=== PATIENT | male | born 1945 | race Caucasian/White ===

== ENCOUNTER → 2021-02-11 | Outpatient (CLI) | payer MEDICARE ==
--- NOTE | 2021-02-11 15:07 | MR ---
EXAMINATION TYPE: MR lumbar spine wo con DATE OF EXAM: 02/11/2021 COMPARISON: None HISTORY: Radiculopathy lumbar, spondylosis, lower back pain TECHNIQUE: Multiplanar, multisequence images of the lumbar spine were acquired. L1-L2: Minimal posterior disc bulge causes slight anterior mass effect on the thecal sac. No signific ant spinal stenosis or foraminal encroachment. L2-L3: Normal disc appearance without desiccation. No herniation, protrusion or disc bulging. No ca nal stenosis is present. Foramina are patent bilaterally. There is facet arthropathy change present causing some posterior lateral mass effect on the thecal sac. Pedicles appear short. L3-L4: Posterior disc herniation causes anterior mass effect on the thecal sac, facet arthropathy wit h hypertrophy of ligamentum flavum results in a trefoil appearance of the thecal sac, facet arthropat hy encroaches somewhat on the lateral recesses, circumferential extension endplate disc complex encro aches on the neural foramina. L4-L5: Posterior extension of broad-based disc bulge, endplate disc complex results in anterior mass effect on the thecal sac, mild spinal stenosis, there is facet arthropathy with hypertrophy ligamentu m flavum which causes some posterior lateral mass effect on the thecal sac greater on the right, poss ibly some encroachment on the lateral recess, circumferential extension endplate disc complex causing foraminal encroachment greater on the right than on the left. L5-S1: Normal disc appearance without desiccation. No herniation, protrusion or disc bulging. No ca nal stenosis is present. Foramina are patent bilaterally. There is some facet arthropathy change. Lumbar segments are intact. No paraspinal masses are identified. Conus medullaris has a normal appe arance. There is multilevel spondylosis with endplate discogenic marrow signal change, loss of disc h eight and signal is present intervertebral levels especially L3-4, L4-5, L5-S1. IMPRESSION: Degenerative disc disease, facet arthropathy, foraminal encroachment.
== END | disposition home or self-care (01) ==
LOC: RADMRIMAIN 08:21
PROVIDERS: ATTEND Physical Medicine & Rehabilitation
DX: M51.16 Intervertebral disc disorders with radiculopathy, lumbar region (principal); M47.26 Other spondylosis with radiculopathy, lumbar region; M99.73 Connective tissue and disc stenosis of intervertebral foramina of lumbar region
CPT/HCPCS: 72148

== ENCOUNTER → 2021-05-29 | Outpatient (CLI) | payer OTHER ==
--- NOTE | 2021-05-29 11:35 | FL ---
ESOPHOGRAM. HISTORY: Dysphagia Esophagram was performed per the air contrast technique. The patient swallowed barium and effervesce nt crystals without difficulty or delay. Noted and distal portions of the esophagus demonstrate a cork screw appearance compatible with diffus e esophageal spasm. There is no evidence for filling defect, mass or diverticulum. No hiatal hernia seen. Subsequently single contrast cervical esophagram was performed which fails demonstrate evidence for a spiration penetration or mass. IMPRESSION: Noted and distal portions of the esophagus demonstrate a cork screw appearance compatible with diffus e esophageal spasm.
== END | disposition home or self-care (01) ==
LOC: RADUSWWP 09:43
PROVIDERS: ATTEND Family Medicine
DX: R13.10 Dysphagia, unspecified (principal)
CPT/HCPCS: 74220

== ENCOUNTER → 2023-11-24 | Day surgery (SDC) | payer MEDICARE, OTHER ==
[~2023-11-24] MED LIST: LACTATED RINGERS 1,000 ML IV SCH; LIDOCAINE 1% (10MG/ML) FOR IV START INTRADERMA PRN; PROPOFOL 10 MG/ML 20 ML VIAL IV ONE
[2023-11-24] MEDS: SODIUM CHLORIDE 0.9% 500 ML 500 ML IV ONE (08:53)
[2023-11-24 08:57] LABS: Glucose,Whole Blood 76 mg/dL (70-110)
[2023-11-24 09:14] VITALS: TEMP 98.4
--- NOTE | 2023-11-24 09:27 | P.PCN ---
Date of Procedure: 11/24/23 Procedure(s) Performed: BRIEF HISTORY: Patient is a 78-year-old pleasant white female scheduled for an elective colonoscopy as a part of evaluation of Hemoccult-positive stool. PROCEDURE PERFORMED: Colonoscopy. PREOPERATIVE DIAGNOSIS:. Hemoccult-positive stool IV sedation per Anesthesia. PROCEDURE: After informed consent was obtained, the patient, was brought into the endoscopy unit. IV sedation was administered by Anesthesia under continuous monitoring. Digital rectal examination was normal. Initially the Olympus CF-160 flexible video colonoscope was then insertethe rectum, gradually advanced into the hepatic flexure and despite multiple attempts I was not able to advance the scope into the cecum because of extreme redundancy of the colon. Mucosa of the hepatic flexure transverse colon, descending colon, sigmoid colon, and rectum appeared normal. Retroflexion was performed in the rectum and no lesions were seen. The patient tolerated the procedure well. IMPRESSION: Normal-appearing colon from rectum to hepatic flexure and further advancement into the right colon was not possible because of redundant colon. RECOMMENDATIONS: Findings of this examination were discussed with the patient as well as his family. He would be scheduled for barium enema to evaluate the right colon.
[2023-11-24 09:47] LABS: Glucose,Whole Blood 70 mg/dL (70-110)
[2023-11-24] MEDS: DEXTROSE 50% SYRINGE 50 ML IVP ONE (10:10)
[2023-11-24 10:30] VITALS: RESP 14
[2023-11-24 10:38] LABS: Glucose,Whole Blood 111 mg/dL (70-110)
[2023-11-24 11:06] VITALS: BP 150/84; PULSE 57
--- NOTE | 2023-11-24 11:27 | XR ---
EXAMINATION TYPE: XR abdomen 1V DATE OF EXAM: 11/24/2023 COMPARISON: NONE HISTORY: [employer] for barium enema TECHNIQUE: One view abdominal series FINDINGS: Extensive retained air throughout the colon and portions of the small bowel. This likely is related t o recent colonoscopy. Arthropathy of the hips and degenerative change of the spine. IMPRESSION: 1. Extensive air throughout both large and small bowel loops likely related to recent colonoscopy.
== END ==
LOC: ORWHC2ENDO 07:53
PROVIDERS: ATTEND Internal Medicine Gastroenterology
DX: R19.5 Other fecal abnormalities (principal); E78.5 Hyperlipidemia, unspecified; I48.91 Unspecified atrial fibrillation; G47.33 Obstructive sleep apnea (adult) (pediatric); E11.9 Type 2 diabetes mellitus without complications; D64.9 Anemia, unspecified; Z79.01 Long term (current) use of anticoagulants; Z79.899 Other long term (current) drug therapy
CPT/HCPCS: 74018; 45378; J2704

== ENCOUNTER 2024-02-15 13:44 | Inpatient (IN) | payer OTHER, MEDICARE ==
--- NOTE | 2024-02-15 14:01 | ED ---
Recheck HPI - General Stated Complaint: Fever, elevated pulse Time Seen by Provider: 02/15/24 13:46 Source: RN notes reviewed, old records reviewed Limitations: no limitations - History of Present Illness Initial Comments: This is a 78-year-old male to the ER for evaluation of severely elevated heart rate patient presents from dialysis with history of atrial fibrillation and heart rate allegedly in the 150s. Patient was sent to the ER from dialysis for evaluation regards to heart rate MD Complaint: other (Significant. Elevated heart rate) -: hour(s) Returns Today for: rabies shot Symptoms Since Prior Visit: no new symptoms Context: planned re-check Associated Symptoms: none Treatments Prior to Arrival: other - Related Data Home Medications Medication Instructions Recorded Confirmed Alogliptin Benzoate [Alogliptin] 6.25 mg PO HS 11/20/23 02/15/24 Insulin Glargine,Hum.rec.anlog 45 units SQ HS 11/20/23 02/15/24 [Lantus Solostar Pen] Multivitamins, Thera [Multivitamin 1 tab PO DAILY 11/20/23 02/15/24 (formulary)] [place]-3/Dha/Epa/Fish Oil [Fish Oil 1,000 mg PO DAILY 11/20/23 02/15/24 1,000 mg Softgel] Tamsulosin HCl [Flomax] 0.4 mg PO HS 11/20/23 02/15/24 Warfarin [Coumadin] 2.5 mg PO DIRECTED 11/20/23 02/15/24 diphenhydrAMINE HCL [Benadryl] 25 mg PO HS 11/20/23 02/15/24 Lovastatin [Mevacor] 10 mg PO HS 02/15/24 02/15/24 Allergies Allergy/AdvReac Type Severity Reaction Status Date / Time No Known Allergies Allergy Verified 02/15/24 16:59 Review of Systems ROS Statement: Those systems with pertinent positive or pertinent negative responses have been documented in the HPI. ROS Other: All systems not noted in ROS Statement are negative. Past Medical History Past Medical History: Atrial Fibrillation, Atrial Flutter, Diabetes Mellitus, Dialysis, Hyperlipidemia, Renal Disease, Sleep Apnea/CPAP/BIPAP Additional Past Medical History / Comment(s): MWF DIALYSIS , uses cpap ,dialysis graft in lft arm History of Any Multi-Drug Resistant Organisms: None Reported Past Surgical History: Cardiac Valve Replacement, Tonsillectomy Additional Past Surgical History / Comment(s): graft for dialysis Past Anesthesia/Blood Transfusion Reactions: No Reported Reaction Smoking Status: Former smoker - Past Family History Father Family Medical History: No Reported History Brother(s) Family Medical History: Diabetes Mellitus, Sleep Apnea/CPAP/BIPAP Additional Family Medical History / Comment(s): Parkinson's Dis. General Exam General appearance: alert, in no apparent distress, anxious Head exam: Present: atraumatic, normocephalic, normal inspection Eye exam: Present: normal appearance, PERRL, EOMI. Absent: scleral icterus, conjunctival injection, periorbital swelling ENT exam: Present: normal exam, mucous membranes moist Neck exam: Present: normal inspection. Absent: tenderness, meningismus, lymphad enopathy Respiratory exam: Present: normal lung sounds bilaterally. Absent: respiratory distress, wheezes, rales, rhonchi, stridor Cardiovascular Exam: Present: tachycardia, irregular rhythm, normal heart sounds. Absent: systolic murmur, diastolic murmur, rubs, gallop, clicks GI/Abdominal exam: Present: soft, normal bowel sounds. Absent: distended, tenderness, guarding, rebound, rigid Extremities exam: Present: normal inspection, full ROM, normal capillary refill. Absent: tenderness, pedal edema, joint swelling, calf tenderness Back exam: Present: normal inspection Neurological exam: Present: alert, oriented X3, CN II-XII intact Psychiatric exam: Present: normal affect, normal mood Skin exam: Present: warm, dry, intact, normal color. Absent: rash Course Vital Signs 02/15/24 02/15/24 02/15/24 13:48 17:29 21:34 Temperature 104.1 F H 101.5 F H 98.6 F Pulse Rate 140 H 147 H 93 Pulse Rate [ Critical Care Technician ] Respiratory 16 26 H 16 Rate Blood Pressure 196/98 97/48 108/53 Blood Pressure [Right Arm] O2 Sat by Pulse 97 84 L Oximetry Fraction of Inspired Oxygen (FIO2) 02/15/24 02/15/24 02/15/24 22:00 22:29 22:40 Temperature Pulse Rate 144 H Pulse Rate [ Critical Care Technician ] Respiratory 18 Rate Blood Pressure 191/79 Blood Pressure [Right Arm] O2 Sat by Pulse 70 L 99 Oximetry Fraction of 60 Inspired Oxygen (FIO2) 02/15/24 02/15/24 02/15/24 23:06 23:14 23:25 Temperature 99.4 F Pulse Rate 158 H Pulse Rate [ Critical Care Technician ] Respiratory 33 H Rate Blood Pressure 91/55 85/60 Blood Pressure [Right Arm] O2 Sat by Pulse 100 Oximetry Fraction of 50 Inspired Oxygen (FIO2) 02/16/24 02/16/24 02/16/24 00:12 02:00 03:39 Temperature Pulse Rate 105 H Pulse Rate [ Critical Care Technician ] Respiratory 24 Rate Blood Pressure 97/54 Blood Pressure [Right Arm] O2 Sat by Pulse 100 Oximetry Fraction of 40 40 Inspired Oxygen (FIO2) 02/16/24 02/16/24 02/16/24 04:21 08:00 08:19 Temperature 97.4 F L Pulse Rate 99 Pulse Rate [ 94 Critical Care Technician ] Respiratory 20 16 Rate Blood Pressure 101/54 Blood Pressure 108/65 [Right Arm] O2 Sat by Pulse 100 99 100 Oximetry Fraction of 40 Inspired Oxygen (FIO2) 02/16/24 08:23 Temperature Pulse Rate Pulse Rate [ Critical Care Technician ] Respiratory Rate Blood Pressure Blood Pressure [Right Arm] O2 Sat by Pulse Oximetry Fraction of 30 Inspired Oxygen (FIO2) - Reevaluation(s) Reevaluation #1: 02/15/24 14:13 Medical records reviewed Reevaluation #2: 02/15/24 16:45 Patient symptoms heart rate and fever improved Reevaluation #3: 02/15/24 16:45 Patient informed of results and questions answered Reevaluation #4: Was pt. sent in by a medical professional or institution (, PA, NECKTIE CENTRALIZING MACHINE OPERATOR, urgent care, hospital, or [facility]...) When possible be specific @ -no Did you speak to anyone other than the patient for history (EMS, parent, family, police, friend...)? What history was obtained from this source @ -no Did you review nursing and triage notes (agree or disagree)? Why? @ -agree Are old charts reviewed (outside hosp., previous admission, EMS record, old EKG, old radiological studies, urgent care reports/EKG's, [facility] records)? Report findings @ -yes Differential Diagnosis (chest pain, altered mental status, abdominal pain women, abdominal pain men, vaginal bleeding, weakness, fever, dyspnea, syncope, headache, dizziness, GI bleed, back pain, seizure, CVA, palpatations, mental health, musculoskeletal)? @ -prior EKG interpreted by me (3pts min.). @ -yes X-rays interpreted by me (1pt min.). @ -yes negative for acute disease CT interpreted by me (1pt min.). @ -no U/S interpreted by me (1pt. min.). @ -no What testing was considered but not performed or refused? (CT, X-rays, U/S, labs)? Why? @ -none What meds were considered but not given or refused? Why? @ -none Did you discuss the management of the patient with other professionals (professionals i.e. Dr., PA, NECKTIE CENTRALIZING MACHINE OPERATOR, lab, RT, psych nurse, mental health social worker, quarry boss, teacher, chief data officer, piano case and bench assembler)? Give summary @ -no Was smoking cessation discussed for >3mins.? @ -no Was critical care preformed (if so, how long)? @ -yes31 Were there social determinants of health that impacted care today? How? (Homelessness, low income, unemployed, alcoholism, drug addiction, transportation, low edu. Level, literacy, decrease access to med. care, nursing home, rehab)? @ -none Was there de-escalation of care discussed even if they declined (Discuss DNR or withdrawal of care, Hospice)? DNR status @ -no What co-morbidities impacted this encounter? (DM, HTN, Smoking, COPD, CAD, Cancer, CVA, ARF, Chemo, Hep., AIDS, mental health diagnosis, sleep apnea, morbid obesity)? @ -none Was patient admitted / discharged? Hospital course, mention meds given and route, prescriptions, significant lab abnormalities, going to OR and other pertinent info. @ - 78 male to ER for evaluation of elevated heart rate severely elevated heart with fever. Patient will be admitted for rule out sepsis with sepsis no current source found Admitted Undiagnosed new problem with uncertain prognosis? @ -no Drug Therapy requiring intensive monitoring for toxicity (Heparin, Nitro, Insulin, Cardizem)? @ -no Were any procedures done? @ -no Diagnosis/symptom? @ -78 male to ER for evaluation of elevated heart rate severely elevated heart with fever. Patient will be admitted for rule out sepsis with sepsis no current source found Acute, or Chronic, or Acute on Chronic? @ -Acute Uncomplicated (without systemic symptoms) or Complicated (systemic symptoms)? @ -Complicated Side effects of treatment? @ -no Exacerbation, Progression, or Severe Exacerbation? @ -exacerbation Poses a threat to life or bodily function? How? (Chest pain, [place], [place], pneumonia, PE, COPD, DKA, ARF, appy, cholecystitis, CVA, Diverticulitis, Homicidal, Suicidal, threat to staff... and all critical care pts) @ -yes Reevaluation #5: Differential Palpitations Ventricular arrhythmias, atrial arrhythmias, myocardial infarction, anemia, thyrotoxicosis, electrolyte imbalance, hypokalemia, pulmonary embolism, pulmonary disease, drugs, alcohol, anxiety, stress.... This is not meant to be an all-inclusive list. - Consultations Consultation #1: Spoke with admitting physicians who agreed to admit this patient Medical Decision Making - Medical Decision Making 78 male to ER for evaluation of elevated heart rate severely elevated heart with fever. Patient will be admitted for rule out sepsis with sepsis no current source found - Lab Data Result diagrams: 02/23/24 10:01 02/23/24 10:01 Lab Results 02/15/24 02/15/24 02/15/24 Range/Units 14:04 14:04 14:04 WBC 19.4 H (3.8-10.6) k/uL RBC 3.59 L (4.30-5.90) m/uL Hgb 11.3 L (13.0-17.5) gm/dL Hct 34.0 L (39.0-53.0) % MCV 94.7 (80.0-100.0) fL MCH 31.6 (25.0-35.0) pg MCHC 33.3 (31.0-37.0) g/dL RDW 15.3 (11.5-15.5) % Plt Count 131 L (150-450) k/uL MPV 8.7 Neutrophils % 94 % Lymphocytes % 2 % Monocytes % 3 % Eosinophils % 0 % Basophils % 0 % Neutrophils # 18.2 H (1.3-7.7) k/uL Lymphocytes # 0.3 L (1.0-4.8) k/uL Monocytes # 0.7 (0-1.0) k/uL Eosinophils # 0.1 (0-0.7) k/uL Basophils # 0.1 (0-0.2) k/uL PT 21.7 H (10.0-12.5) sec INR 2.2 H (<1.2) APTT 41.5 H (22.0-30.0) sec Sodium 137 (137-145) mmol/L Potassium 4.0 (3.5-5.1) mmol/L Chloride 97 L (98-107) mmol/L Carbon Dioxide 29 (22-30) mmol/L Anion Gap 11 mmol/L BUN 76 H (9-20) mg/dL Creatinine 3.74 H (0.66-1.25) mg/dL Est GFR (CKD-EPI)AfAm 17 (>60 ml/min/1.73 sqM) Est GFR (CKD-EPI)NonAf 15 (>60 ml/min/1.73 sqM) Glucose 197 H (74-99) mg/dL Lactic Ac Sepsis Rflx Plasma Lactic Acid Chaz (0.7-2.0) mmol/L Calcium 8.8 (8.4-10.2) mg/dL Phosphorus 2.4 L (2.5-4.5) mg/dL Magnesium 2.0 (1.6-2.3) mg/dL Total Bilirubin 0.6 (0.2-1.3) mg/dL AST 38 (17-59) U/L ALT 28 (4-49) U/L Alkaline Phosphatase 67 (38-126) U/L Troponin I (0.000-0.034) ng/mL Total Protein 7.2 (6.3-8.2) g/dL Albumin 4.3 (3.5-5.0) g/dL Influenza Type A (PCR) (Not Detectd) Influenza Type B (PCR) (Not Detectd) RSV (PCR) (Not Detectd) SARS-CoV-2 (PCR) (Not Detectd) 02/15/24 02/15/24 02/15/24 Range/Units 14:04 14:04 15:37 WBC (3.8-10.6) k/uL RBC (4.30-5.90) m/uL Hgb (13.0-17.5) gm/dL Hct (39.0-53.0) % MCV (80.0-100.0) fL MCH (25.0-35.0) pg MCHC (31.0-37.0) g/dL RDW (11.5-15.5) % Plt Count (150-450) k/uL MPV Neutrophils % % Lymphocytes % % Monocytes % % Eosinophils % % Basophils % % Neutrophils # (1.3-7.7) k/uL Lymphocytes # (1.0-4.8) k/uL Monocytes # (0-1.0) k/uL Eosinophils # (0-0.7) k/uL Basophils # (0-0.2) k/uL PT (10.0-12.5) sec INR (<1.2) APTT (22.0-30.0) sec Sodium (137-145) mmol/L Potassium (3.5-5.1) mmol/L Chloride (98-107) mmol/L Carbon Dioxide (22-30) mmol/L Anion Gap mmol/L BUN (9-20) mg/dL Creatinine (0.66-1.25) mg/dL Est GFR (CKD-EPI)AfAm (>60 ml/min/1.73 sqM) Est GFR (CKD-EPI)NonAf (>60 ml/min/1.73 sqM) Glucose (74-99) mg/dL Lactic Ac Sepsis Rflx Y Plasma Lactic Acid Chaz 2.6 H* (0.7-2.0) mmol/L Calcium (8.4-10.2) mg/dL Phosphorus (2.5-4.5) mg/dL Magnesium (1.6-2.3) mg/dL Total Bilirubin (0.2-1.3) mg/dL AST (17-59) U/L ALT (4-49) U/L Alkaline Phosphatase (38-126) U/L Troponin I 0.171 H* (0.000-0.034) ng/mL Total Protein (6.3-8.2) g/dL Albumin (3.5-5.0) g/dL Influenza Type A (PCR) (Not Detectd) Influenza Type B (PCR) (Not Detectd) RSV (PCR) (Not Detectd) SARS-CoV-2 (PCR) (Not Detectd) 02/15/24 Range/Units 16:28 WBC (3.8-10.6) k/uL RBC (4.30-5.90) m/uL Hgb (13.0-17.5) gm/dL Hct (39.0-53.0) % MCV (80.0-100.0) fL MCH (25.0-35.0) pg MCHC (31.0-37.0) g/dL RDW (11.5-15.5) % Plt Count (150-450) k/uL MPV Neutrophils % % Lymphocytes % % Monocytes % % Eosinophils % % Basophils % % Neutrophils # (1.3-7.7) k/uL Lymphocytes # (1.0-4.8) k/uL Monocytes # (0-1.0) k/uL Eosinophils # (0-0.7) k/uL Basophils # (0-0.2) k/uL PT (10.0-12.5) sec INR (<1.2) APTT (22.0-30.0) sec Sodium (137-145) mmol/L Potassium (3.5-5.1) mmol/L Chloride (98-107) mmol/L Carbon Dioxide (22-30) mmol/L Anion Gap mmol/L BUN (9-20) mg/dL Creatinine (0.66-1.25) mg/dL Est GFR (CKD-EPI)AfAm (>60 ml/min/1.73 sqM) Est GFR (CKD-EPI)NonAf (>60 ml/min/1.73 sqM) Glucose (74-99) mg/dL Lactic Ac Sepsis Rflx Plasma Lactic Acid Chaz (0.7-2.0) mmol/L Calcium (8.4-10.2) mg/dL Phosphorus (2.5-4.5) mg/dL Magnesium (1.6-2.3) mg/dL Total Bilirubin (0.2-1.3) mg/dL AST (17-59) U/L ALT (4-49) U/L Alkaline Phosphatase (38-126) U/L Troponin I (0.000-0.034) ng/mL Total Protein (6.3-8.2) g/dL Albumin (3.5-5.0) g/dL Influenza Type A (PCR) Not Detected (Not Detectd) Influenza Type B (PCR) Not Detected (Not Detectd) RSV (PCR) Not Detected (Not Detectd) SARS-CoV-2 (PCR) Not Detected (Not Detectd) - EKG Data -: EKG Interpreted by Me (EKG is A-fib flutter 138 QRS 86 QTc 365) - Radiology Data Radiology results: report reviewed (Chest x-ray is negative for acute disease), image reviewed Critical Care Time Critical Care Time: Yes Total Critical Care Time: 31 Disposition Clinical Impression: Fever, Atrial fibrillation with rapid ventricular response, Weakness, Sepsis, NSTEMI (non-ST elevated myocardial infarction), End-stage renal disease on hemodialysis, Anemia, Leukocytosis Disposition: ADMITTED IP TO THIS HOSP Condition: Serious Is patient prescribed a controlled substance at d/c from ED?: No Time of Disposition: 16:40
[2024-02-15] MEDS: SODIUM CHLORIDE 0.9% 1,000 ML IV STA (15:04)
[2024-02-15] MEDS: DILTIAZEM DRIP BOLUS FROM BAG 1 MG SOLN IV ONE (15:05)
[2024-02-15] MEDS: DILTIAZEM 125 MG in SODIUM CHLORIDE 0.9% 100 ML IV SCH (15:05)
[2024-02-15 15:21] LABS: Basophils # (A) 0.1 k/uL (0-0.2); Basophils % (A) 0 %; Eosinophils # (A) 0.1 k/uL (0-0.7); Eosinophils % (A) 0 %; HGB 11.3 gm/dL (13.0-17.5); Lymphocytes # (A) 0.3 k/uL (1.0-4.8); Lymphocytes % (A) 2 %; MCH 31.6 pg (25.0-35.0); MCHC 33.3 g/dL (31.0-37.0); MCV 94.7 fL (80.0-100.0); Mean Platelet Volume 8.7; Monocytes # (A) 0.7 k/uL (0-1.0); Monocytes % (A) 3 %; Neutrophils # (A) 18.2 k/uL (1.3-7.7); Neutrophils % (A) 94 %; Platelet Count 131 k/uL (150-450); RBC 3.59 m/uL (4.30-5.90); RDW 15.3 % (11.5-15.5); WBC 19.4 k/uL (3.8-10.6)
[2024-02-15 15:29] LABS: INR 2.2 (<1.2); Partial Thromboplastin Time 41.5 sec (22.0-30.0); Prothrombin Time 21.7 sec (10.0-12.5)
[2024-02-15 15:34] LABS: ALT 28 U/L (4-49); AST 38 U/L (17-59); African American GFR (CKD) 17 (>60 ml/min/1.73 sqM); Albumin 4.3 g/dL (3.5-5.0); Alkaline Phosphatase 67 U/L (38-126); Anion Gap 11 mmol/L; Blood Urea Nitrogen 76 mg/dL (9-20); Calcium 8.8 mg/dL (8.4-10.2); Carbon Dioxide 29 mmol/L (22-30); Chloride 97 mmol/L (98-107); Glucose 197 mg/dL (74-99); Non-African American GFR(CKD) 15 (>60 ml/min/1.73 sqM); Phosphorus 2.4 mg/dL (2.5-4.5); Sodium 137 mmol/L (137-145); Total Bilirubin 0.6 mg/dL (0.2-1.3); Total Protein 7.2 g/dL (6.3-8.2)
[2024-02-15] MEDS: ACETAMINOPHEN IV (For NPO) 1,000 MG in EMPTY BAG 1 BAG IVPB STA (16:28)
[2024-02-15] MEDS ORDERED: MORPHINE SULFATE 4 MG/ML SYRINGE IV PRN (16:45)
[2024-02-15] MEDS ORDERED: IBUPROFEN 400 MG TAB PO PRN (16:45)
[2024-02-15] MEDS ORDERED: NALOXONE 0.4 MG/ML 1 ML VIAL IV PRN (16:45)
--- NOTE | 2024-02-15 17:16 | XR ---
EXAMINATION TYPE: XR chest 1V DATE OF EXAM: 02/15/2024 4:57 PM CLINICAL INDICATION:Male, 78 years old with history of cough; [facility] COMPARISON: None TECHNIQUE: XR chest 1V Frontal view of the chest. FINDINGS: Lungs/Pleura: No evidence of focal consolidation or pneumothorax. Blunting of the costophrenic angles is present. Pulmonary vascularity: Pulmonary vascular congestion. Heart/mediastinum: Cardiomediastinal silhouette is enlarged and stable. Musculoskeletal: No acute osseous pathology. IMPRESSION: Cardiomegaly, pulmonary vascular congestion and bilateral pleural effusions. Correlate with BNP for c ongestive heart failure.
[2024-02-15] MEDS ORDERED: HEPARIN SODIUM 1,000 UN/ML (10ML VL) IV PRN (17:26)
[2024-02-15] MEDS ORDERED: VANCOMYCIN IV PER PHARMACY 1 EACH MISC MISCELLANE PRN (17:27)
[2024-02-15] MEDS ORDERED: CEFEPIME 1 GM in SODIUM CHLORIDE 0.9% 50 ML IVPB SCH (17:30)
[2024-02-15] MEDS ORDERED: DEXTROSE 50% SYRINGE 50 ML IVP PRN ×2 (17:32)
--- NOTE | 2024-02-15 17:39 | P.HPIM ---
History of Present Illness H&P Date: 02/15/24 78 year old M with PMH of DM, AFib, h/o AV replacement, HLD, ESRD on HD MWF, BPH present to the ED. and son is at bedside providing majory of the history. noted patient was waking up frequently through the night to urinate. This morning, he rolled off the side of the bed. He was noted to be extremely weak and somewhat confused. Normally able to take care of his ADLs and IADLs. They took him to [facility]. He was noted to have a fever and elevated HR. He was given some medication for his elevated HR and they discharged him from the ED. He attempted to go to dialysis today which was terminated after one hour, he was sent to the hospital for fever and elevated HR. reports patient was completely normal last night prior to this morning and did not have any complaints. At this time he complaints of dysuria. In the ED he underwent extensive evaluation. BP 196/98, HR 140, T 104.1 F, 97% on RA. CBC, Coag panel, CMP was done significant for WBC 194., Hg 11.3, Hct 34, Plt 131, PT 21.7, INR 2.2, APTT 41.5, Cl 97, BUN 76, Cr 3.74, glu 197. Phos 2.4. Lactic acid 2.6. Troponin 0.171. EKG showed atrial fibrillation with RVR rate of 138. CXR showed pulmonary vascular congestion and bilateral pleural effusion. Patient was started on a Cardizem drip, IV Tylenol, Rocephin/Azithromycin, normal saline and is admitted for further workup and management. General: toxic, no distress, appears at stated age, lethargic Derm: warm, dry Head: atraumatic, normocephalic, symmetric Eyes: EOMI, no lid lag, anicteric sclera Mouth: no lip lesion, mucus membranes moist Cardiovascular: S1S2 irregular, no murmur Lungs: Decreased BS bilateral, no rhonchi, no rales , no accessory muscle use Abdominal: soft, nontender to palpation, no guarding, no appreciable organomegaly Ext: no gross muscle atrophy, 1+ lower extremity edema, no contractures Neuro: no focal neuro deficits Psych: Lethargic and sleepy Atrial fibrillation with RVR: Status post 15 mg cardizem IV bolus. Started on Cardizem 5 mg/hr. Consider Amiodarone if BP drops. Obtain TSH and Echocardiogram. Cardiology consulted. Sepsis unknown etiology: Start Vancomycin dosed per pharmacy and Cefepime 1g IV TID. Obtain BCx, UA with UCx, COVID/RSV/Flu. NS at 130 cc/hr. Telemetry monitoring. ESRD on HD WMF: Nephrology consult to resume HD. Troponin elevation: Trend Troponin/EKG. Started on low intensity heparin drip. Cardiology consulted. Normocytic anemia: Likely due to AOCD from ESRD. No signs of active bleeding. Monitor. Thrombocytopenia: Possibly reactive. Monitor. Diabetes mellitus: ISS. Accuchecks ACHS. Hypoglycemic precautions. Dyslipidemia: Lovastatin 10 mg PO QHS. BPH: Flomax 0.4 mg PO QHS. CODE STATUS: FULL CODE. DVT Prophylaxis: Heparin drip. GI Prophylaxis: Designated medical POA if patient is not able to make medical decisions for themselves: I have reviewed the following unix consultant notes: ED note I have reviewed the results of the following tests: As above. I have ordered the following tests: As above. I have discussed the care of this patient with the following independent historian: Son and I have independently interpreted the following test below: EKG I have discussed the management of this patient with the following physician: Past Medical History Past Medical History: Atrial Fibrillation, Atrial Flutter, Diabetes Mellitus, Dialysis, Hyperlipidemia, Renal Disease, Sleep Apnea/CPAP/BIPAP Additional Past Medical History / Comment(s): MWF DIALYSIS , uses cpap ,dialysis graft in lft arm History of Any Multi-Drug Resistant Organisms: None Reported Past Surgical History: Cardiac Valve Replacement, Tonsillectomy Additional Past Surgical History / Comment(s): graft for dialysis Past Anesthesia/Blood Transfusion Reactions: No Reported Reaction Smoking Status: Former smoker - Past Family History Father Family Medical History: No Reported History Medications and Allergies Home Medications Medication Instructions Recorded Confirmed Type Alogliptin Benzoate [Alogliptin] 6.25 mg PO HS 11/20/23 02/15/24 History Insulin Glargine,Hum.rec.anlog 45 units SQ HS 11/20/23 02/15/24 History [Lantus Solostar Pen] Multivitamins, Thera [Multivitamin 1 tab PO DAILY 11/20/23 02/15/24 History (formulary)] [place]-3/Dha/Epa/Fish Oil [Fish Oil 1,000 mg PO DAILY 11/20/23 02/15/24 History 1,000 mg Softgel] Tamsulosin HCl [Flomax] 0.4 mg PO HS 11/20/23 02/15/24 History Warfarin [Coumadin] 2.5 mg PO DIRECTED 11/20/23 02/15/24 History diphenhydrAMINE HCL [Benadryl] 25 mg PO HS 11/20/23 02/15/24 History Lovastatin [Mevacor] 10 mg PO HS 02/15/24 02/15/24 History Allergies Allergy/AdvReac Type Severity Reaction Status Date / Time No Known Allergies Allergy Verified 02/15/24 16:59 Physical Exam Vitals: Vital Signs Temp Pulse Resp BP Pulse Ox 02/15/24 17:29 101.5 F H 147 H 26 H 97/48 84 L 02/15/24 13:48 104.1 F H 140 H 16 196/98 97 Intake and Output 02/15/24 02/15/24 02/15/24 06:59 14:59 22:59 Other: Weight 105.233 kg Results CBC & Chem 7: 02/15/24 14:04 02/15/24 14:04 Labs: Abnormal Lab Results - Last 24 Hours (Table) 02/15/24 02/15/24 02/15/24 Range/Units 14:04 14:04 14:04 WBC 19.4 H (3.8-10.6) k/uL RBC 3.59 L (4.30-5.90) m/uL Hgb 11.3 L (13.0-17.5) gm/dL Hct 34.0 L (39.0-53.0) % Plt Count 131 L (150-450) k/uL Neutrophils # 18.2 H (1.3-7.7) k/uL Lymphocytes # 0.3 L (1.0-4.8) k/uL PT 21.7 H (10.0-12.5) sec INR 2.2 H (<1.2) APTT 41.5 H (22.0-30.0) sec Chloride 97 L (98-107) mmol/L BUN 76 H (9-20) mg/dL Creatinine 3.74 H (0.66-1.25) mg/dL Glucose 197 H (74-99) mg/dL Plasma Lactic Acid Chaz (0.7-2.0) mmol/L Phosphorus 2.4 L (2.5-4.5) mg/dL Troponin I (0.000-0.034) ng/mL 02/15/24 02/15/24 Range/Units 14:04 14:04 WBC (3.8-10.6) k/uL RBC (4.30-5.90) m/uL Hgb (13.0-17.5) gm/dL Hct (39.0-53.0) % Plt Count (150-450) k/uL Neutrophils # (1.3-7.7) k/uL Lymphocytes # (1.0-4.8) k/uL PT (10.0-12.5) sec INR (<1.2) APTT (22.0-30.0) sec Chloride (98-107) mmol/L BUN (9-20) mg/dL Creatinine (0.66-1.25) mg/dL Glucose (74-99) mg/dL Plasma Lactic Acid Chaz 2.6 H* (0.7-2.0) mmol/L Phosphorus (2.5-4.5) mg/dL Troponin I 0.171 H* (0.000-0.034) ng/mL
[2024-02-15] MEDS: IBUPROFEN IV 800 MG in SODIUM CHLORIDE 0.9% 250 ML IV ONE (17:56)
[2024-02-15] MEDS: SODIUM CHLORIDE 0.9% 1,000 ML IV SCH (18:50)
[2024-02-15] MEDS: CEFEPIME 1 GM in SODIUM CHLORIDE 0.9% 50 ML IVPB SCH (20:03)
[2024-02-15] MEDS: HEPARIN SODIUM 1,000 UN/ML (10ML VL) IV ONE (20:13)
[2024-02-15] MEDS: HEPARIN SOD,PORK IN 0.45% NACL 25,000 UNIT in 0.45% NACL 1 250ML.BAG IV SCH (20:13)
[2024-02-15 20:54] LABS: Appearance,Urine Clear (Clear); Bilirubin,Urine Negative (Negative); Blood,Urine Small (Negative); Color,Urine Light Yellow; Glucose,Urine (UA) 2+ (Negative); Ketones,Urine Negative (Negative); Leukocyte Esterase,Urine Negative (Negative); Nitrite,Urine Negative (Negative); PH, Urine 7.5 (5.0-8.0); Protein,Urine 3+ (Negative); RBC,Urine 4 /hpf (0-5); Specific Gravity,Urine 1.016 (1.001-1.035); Squamous Epithelial Cell,Urine <1 /hpf (0-4); Urobilinogen,Urine <2.0 mg/dL (<2.0); WBC,Urine 2 /hpf (0-5)
[2024-02-15 21:09] LABS: Glucose,Whole Blood 266 mg/dL (70-110)
[2024-02-15] MEDS: TAMSULOSIN 0.4 MG CAP.ER.24H PO SCH (21:09)
[2024-02-15] MEDS: ATORVASTATIN 10 MG TAB PO SCH (21:09)
[2024-02-15] MEDS: AZITHROMYCIN 500 MG in SODIUM CHLORIDE 0.9% 250 ML IVPB STA (21:30)
[2024-02-15] MEDS: INSULIN ASPART (NovoLOG) 100 UNIT/ML VIAL SQ SCH (21:31)
[2024-02-15] MEDS: NITROGLYCERIN-D5W PMX 50 MG in DEXTROSE/WATER 1 250ML.BAG IV ONE (22:31)
[2024-02-16] MEDS: VANCOMYCIN 1,750 MG in SODIUM CHLORIDE 0.9% 500 ML 500 ML IVPB ONE ×2 (01:18→22:15)
[2024-02-16 04:21] LABS: HCT 29.4 % (39.0-53.0); MCH 32.1 pg (25.0-35.0); MCHC 33.3 g/dL (31.0-37.0); MCV 96.5 fL (80.0-100.0); Mean Platelet Volume 9.1; RBC 3.05 m/uL (4.30-5.90); RDW 15.6 % (11.5-15.5); WBC 17.4 k/uL (3.8-10.6)
[2024-02-16 04:33] LABS: HGB 9.8 gm/dL (13.0-17.5)
[2024-02-16 04:53] LABS: INR 1.9 (<1.2); Prothrombin Time 18.9 sec (10.0-12.5)
[2024-02-16 05:53] LABS: ALT 32 U/L (4-49); AST 52 U/L (17-59); African American GFR (CKD) 13 (>60 ml/min/1.73 sqM); Albumin 2.9 g/dL (3.5-5.0); Alkaline Phosphatase 53 U/L (38-126); Anion Gap 9 mmol/L; Blood Urea Nitrogen 87 mg/dL (9-20); Calcium 8.1 mg/dL (8.4-10.2); Carbon Dioxide 26 mmol/L (22-30); Chloride 101 mmol/L (98-107); Glucose 213 mg/dL (74-99); Magnesium 1.9 mg/dL (1.6-2.3); Non-African American GFR(CKD) 11 (>60 ml/min/1.73 sqM); Potassium 3.5 mmol/L (3.5-5.1); Sodium 136 mmol/L (137-145); Total Bilirubin 0.6 mg/dL (0.2-1.3); Total Protein 5.5 g/dL (6.3-8.2)
[2024-02-16 07:03] LABS: Band Neutrophils % 11 %; Lymphocytes # (M) 1.04 k/uL (1.0-4.8); Monocytes # (M) 0.35 k/uL (0-1.0); Neutrophils % (M) 81 %; Nucleated Red Blood Cells 0 /100 WBC (0-0); Total Cells Counted 100
[2024-02-16 07:05] LABS: Anisocytosis (M) Present; Poikilocytosis (M) Present
[2024-02-16 07:07] LABS: Platelet Count 92 k/uL (150-450)
[2024-02-16 08:42] LABS: Glucose,Whole Blood 301 mg/dL (70-110)
--- NOTE | 2024-02-16 09:54 | XR ---
EXAMINATION TYPE: XR chest 1V portable DATE OF EXAM: 02/16/2024 9:37 AM CLINICAL INDICATION:Male, 78 years old with history of CHF; COMPARISON: Chest radiographs from 02/15/2024. TECHNIQUE: XR chest 1V portable Frontal view of the chest. FINDINGS: Lungs/Pleura: There is no evidence of pleural effusion, focal consolidation, or pneumothorax. Pulmonary vascularity: Pulmonary vascular congestion. Heart/mediastinum: Cardiomediastinal silhouette is enlarged and stable. Atherosclerotic calcificatio ns are seen in the aorta. Musculoskeletal: No acute osseous pathology. IMPRESSION: Cardiomegaly and mild pulmonary vascular congestion. Correlate with BNP for congestive heart failure.
[2024-02-16] MEDS: FUROSEMIDE 10 MG/ML 4 ML VIAL IV STA (10:20)
[2024-02-16] MEDS: POTASSIUM CHLORIDE ER 20 MEQ TAB.ER PO STA (10:20)
--- NOTE | 2024-02-16 11:33 | CA ---
Transthoracic Echo Report Name: Rosi Huntley Age: 78 Gender: M : 1945 Exam Date: 02/16/2024 08:19 Exam Location: [facility] Ht (in): 70 Wt (lb): 232 Ordering Physician: Krystal Fofana MD Attending/Referring Phys: Interrelated [employer] Education Teacher Sally Brooke RDCS Procedure CPT: Indications: afib Cardiac Hx: S/P TAVR Technical Quality: Fair Contrast 1: Definity Total Dose (mL): 1 Contrast 2: Total Dose (mL): MEASUREMENTS (Male / Female) Normal Values 2D ECHO LV Diastolic Diameter PLAX 4.7 cm 4.2 - 5.9 / 3.9 - 5.3 cm LV Systolic Diameter PLAX 3.3 cm IVS Diastolic Thickness 1.5 cm 0.6 - 1.0 / 0.6 - 0.9 cm LVPW Diastolic Thickness 1.3 cm 0.6 - 1.0 / 0.6 - 0.9 cm LV Relative Wall Thickness 0.6 RV Internal Dim ED PLAX 2.5 cm LVOT Diameter 1.6 cm LA Systolic Diameter LX 5.7 cm 3.0 - 4.0 / 2.7 - 3.8 cm LV Diastolic Volume MOD BP 124.4 cm??? 67 - 155 / 56 - 104 cm??? LV Systolic Volume MOD BP 58.5 cm??? / 19 - 49 cm??? LV Ejection Fraction MOD BP 52.9 % >= 55 % LV Cardiac Index MOD BP 2760.7 cm???/min???m??? LV Diastolic Volume MOD 4C 132.5 cm??? LV Systolic Volume MOD 4C 60.0 cm??? LV Ejection Fraction MOD 4C 54.7 % LV Cardiac Index MOD 4C 3037.7 cm???/min???m??? LV Diastolic Length 4C 8.9 cm LV Systolic Length 4C 7.6 cm LV Diastolic Volume MOD 2C 114.9 cm??? LV Systolic Volume MOD 2C 55.8 cm??? LV Ejection Fraction MOD 2C 51.5 % LV Cardiac Index MOD 2C 2477.5 cm???/min???m??? LV Diastolic Length 2C 8.7 cm LV Systolic Length 2C 7.7 cm LA Volume 125.2 cm??? 18 - 58 / 22 - 52 cm??? LA Volume Index 54.1 cm???/m??? 16 - 28 cm???/m??? M-MODE Aortic Root Diameter MM 2.9 cm AV Cusp Separation MM 4.7 cm DOPPLER AV Peak Velocity 146.4 cm/s AV Peak Gradient 8.6 mmHg AV Mean Velocity 106.2 cm/s AV Mean Gradient 5.1 mmHg AV Velocity Time Integral 29.4 cm AI Peak Velocity 229.2 cm/s AI Peak Gradient 21.0 mmHg AI Pressure Half Time 540.5 ms LVOT Peak Velocity 105.3 cm/s LVOT Peak Gradient 4.4 mmHg LVOT Velocity Time Integral 21.3 cm LVOT Stroke Volume 43.3 cm??? LVOT Stroke Volume Index 19.5 ml/m??? LVOT Cardiac Index 1814.9 cm???/min???m??? AV Area Cont Eq vti 1.5 cm??? AV Area Cont Eq pk 1.5 cm??? MV Peak Velocity 148.7 cm/s MV Peak Gradient 8.8 mmHg MV Mean Velocity 76.1 cm/s MV Mean Gradient 3.2 mmHg MV Velocity Time Integral 35.4 cm TR Peak Velocity 250.4 cm/s TR Peak Gradient 25.1 mmHg FINDINGS Left Ventricle Left ventricular ejection fraction is estimated at 40-45 %. Global hypokinesis. Moderately hypertrophy . Moderately decreased left ventricular ejection fraction. False Tendon seen in LV. Right Ventricle Mild right ventricular dilatation. Right ventricular systolic pressure within normal limits. Right Atrium Mild right atrial dilatation. Left Atrium Severely increased left atrial diameter. Severely increased left atrial volume. Mildly increased left atrial area. Mitral Valve Mitral valve not well visualized. Severe thickening/calcification of the posterior mitral valve leaflet. Mild mitral regurgitation. Aortic Valve TAVR valve without stenosis with a peak velocity of 1.46 m/s, peak gradient 8.6mmHg, mean gradient 5.1mmHg, and estimated aortic valve area of 1.5cm???. Mild to moderate paravalvular aortic regurgitation. Tricuspid Valve Structurally normal tricuspid valve. Mild tricuspid regurgitation. Pulmonic Valve Structurally normal pulmonic valve. No pulmonic stenosis. Trace pulmonic regurgitation. Pericardium No pericardial or pleural effusion. Aorta Normal size aortic root and proximal ascending aorta. CONCLUSIONS 1. Moderately impaired left ventricular systolic function 2. TAVR valve noted with mild to moderate perivalvular regurgitation. Mean gradient 5 mmHg 3. Mild mitral and tricuspid regurgitation Previewed by: Dr. Laurie Jarrell MD (Electronically Signed) Final Date: 16 Feb 2024 11:32
[2024-02-16 12:05] LABS: Glucose,Whole Blood 327 mg/dL (70-110)
--- NOTE | 2024-02-16 12:10 | P.NPCON ---
History of Present Illness - Reason for Consult end stage renal disease - History of Present Illness patient is a 78-year-old male with end-stage renal disease maintained on hemodialysis on a Thursday schedule. Patient is admitted to the hospital with history of weakness. Patient was also confused. He apparently rolled off the side of the bed and was not able to get up. In the ER patient was noted to be in A. fib with RVR. Currently maintained on Cardizem drip. Chest x-ray shows pulmonary vascular congestion and bilateral pleural effusions. No history of fever chills nausea vomiting abdominal pain or diarrhea. patient did not complete his hemodialysis yesterday his heart rate was significantly elevated in the 140s. Patient was also noted to have a temp of 10 4F. He has received IV antibiotics and is currently maintained on Cardizem drip. Patient is seen in the ER this morning. He is currently on a BiPAP and states that his breathing is slightly improved. No complaints of chest pain Review of Systems as per HPI Past Medical History Past Medical History: Atrial Fibrillation, Atrial Flutter, Diabetes Mellitus, Dialysis, Hyperlipidemia, Renal Disease, Sleep Apnea/CPAP/BIPAP Additional Past Medical History / Comment(s): MWF DIALYSIS , uses cpap ,dialysis graft in lft arm History of Any Multi-Drug Resistant Organisms: None Reported Past Surgical History: Cardiac Valve Replacement, Tonsillectomy Additional Past Surgical History / Comment(s): graft for dialysis Past Anesthesia/Blood Transfusion Reactions: No Reported Reaction Smoking Status: Former smoker - Past Family History Father Family Medical History: No Reported History Medications and Allergies Home Medications Medication Instructions Recorded Confirmed Type Alogliptin Benzoate [Alogliptin] 6.25 mg PO HS 11/20/23 02/15/24 History Insulin Glargine,Hum.rec.anlog 45 units SQ HS 11/20/23 02/15/24 History [Lantus Solostar Pen] Multivitamins, Thera [Multivitamin 1 tab PO DAILY 11/20/23 02/15/24 History (formulary)] [place]-3/Dha/Epa/Fish Oil [Fish Oil 1,000 mg PO DAILY 11/20/23 02/15/24 History 1,000 mg Softgel] Tamsulosin HCl [Flomax] 0.4 mg PO HS 11/20/23 02/15/24 History Warfarin [Coumadin] 2.5 mg PO DIRECTED 11/20/23 02/15/24 History diphenhydrAMINE HCL [Benadryl] 25 mg PO HS 11/20/23 02/15/24 History Lovastatin [Mevacor] 10 mg PO HS 02/15/24 02/15/24 History Allergies Allergy/AdvReac Type Severity Reaction Status Date / Time No Known Allergies Allergy Verified 02/15/24 16:59 Physical Exam Vitals: Vital Signs Temp Pulse Pulse Resp BP BP Pulse Ox 02/16/24 08:23 02/16/24 08:19 100 02/16/24 08:00 97.4 F L 94 16 108/65 99 02/16/24 04:21 99 20 101/54 100 02/16/24 03:39 02/16/24 02:00 105 H 24 97/54 100 02/16/24 00:12 02/15/24 23:25 85/60 02/15/24 23:14 99.4 F 158 H 33 H 91/55 100 02/15/24 23:06 02/15/24 22:40 99 02/15/24 22:29 02/15/24 22:00 144 H 18 191/79 70 L 02/15/24 21:34 98.6 F 93 16 108/53 02/15/24 17:29 101.5 F H 147 H 26 H 97/48 84 L 02/15/24 13:48 104.1 F H 140 H 16 196/98 97 FiO2 02/16/24 08:23 30 02/16/24 08:19 40 02/16/24 08:00 02/16/24 04:21 02/16/24 03:39 40 02/16/24 02:00 02/16/24 00:12 40 02/15/24 23:25 02/15/24 23:14 02/15/24 23:06 50 02/15/24 22:40 02/15/24 22:29 60 02/15/24 22:00 02/15/24 21:34 02/15/24 17:29 02/15/24 13:48 Intake and Output 02/15/24 02/16/24 02/16/24 22:59 06:59 14:59 Intake Total 52.5 Balance 52.5 Intake: Intake, IV Titration 52.5 Amount Heparin Sod,Pork in 0.45% 52.5 NaCl 25,000 unit In 0.45 % NaCl 1 250ml.bag @ 9. 503 UNITS/KG/HR 10 mls/hr IV .[facility] Rx#: [id number] patient is awake, comfortable, no acute distress. Examination of the heart S1 and S2 Examination of the lungs bilateral breath sounds are heard decreased breath sounds at the bases Abdomen is soft nontender Examination of lower extremities shows no significant edema. DSP ENGINEER exam grossly intact Results - Lab Results Most recent lab results Calcium 8.1 mg/dL (8.4-10.2) L 02/16/24 03:02 Phosphorus 2.4 mg/dL (2.5-4.5) L 02/15/24 14:04 Magnesium 1.9 mg/dL (1.6-2.3) 02/16/24 03:02 02/16/24 03:02 02/16/24 03:02 Assessment and Plan Assessment: 1. End-stage renal disease on hemodialysis on a Thursday schedule via left arm AV fistula 2. A. fib with RVR maintained on Cardizem drip 3. Fever, maintained on empiric antibiotics. Blood cultures are pending. Chest x-ray does not show significant pneumonia. 4. Volume overload 5. Acute hypoxic respiratory failure secondary to volume overload Plan: hemodialysis today Continue with IV antibiotics Follow-up on blood cultures replace potassium. Add Gagan Thank you for the consultation. He we'll continue to follow the patient with you during his hospitalization.
--- NOTE | 2024-02-16 12:41 | P.CRDCN ---
History of Present Illness History of present illness: HISTORY OF PRESENT ILLNESS: This is a 78-year-old female with a past medical history significant for end- stage renal disease on hemodialysis, obstructive sleep apnea with CPAP use, hypertension, hyperlipidemia, diabetes, atrial flutter/fibrillation. Patient does not follow with a heavy line technician locally. He follows with a physician at [facility]. We have been asked to see the patient in consultation for AF with RVR. Patient examined at the bedside in the ER. Patient was found to be septic and workup is ongoing per primary medicine. Patient was found to be in atrial fibrillation/flutter with RVR. Patient was placed on IV Cardizem which has since been discontinued. His rates are controlled at the time of examination. He is currently undergoing hemodialysis. Patient was placed on IV heparin. His Coumadin has not been resumed. DIAGNOSTICS: - EKG reveals atrial flutter with RVR. Left BBB - Chest xray cardiomegaly, pulmonary vascular congestion and bilateral pleural effusions - Laboratory data: BC 17.4. Hemoglobin 9.8. Platelet count 92. INR 1.9. Sodium 136. Potassium 3.5. BUN 87. Creatinine 4.79. Troponin 0.276 - Current home cardiac medications include Lovastatin 10 mg daily and Coumadin 2.5mg daily REVIEW OF SYSTEMS: At the time of my exam: CONSTITUTIONAL: Denies fever or chills. HEENT: Denies blurred vision, vision changes, or eye pain. Denies hemoptysis CARDIOVASCULAR: Denies chest pain. Denies orthopnea. Denies PND. Denies palpitations RESPIRATORY: Denies shortness of breath. GASTROINTESTINAL: Denies abdominal pain. Denies nausea or vomiting. HEMATOLOGIC: Denies bleeding disorders. GENITOURINARY: Denies any blood in urine. SKIN: Denies pruitis. Denies rash. PHYSICAL EXAM: VITAL SIGNS: Reviewed. GENERAL: Well-developed in no acute distress. HEENT: Head is normocephalic. Pupils are equal, round. Sclerae anicteric. Mucous membranes of the mouth are moist. Neck supple. No JVD or thyromegaly LUNGS: Respirations even and unlabored. Lungs essentially clear to auscultation bilaterally. HEART: Irregular rate and rhythm. S1 and S2 heard. + systolic murmur at the base ABDOMEN: Soft. Nondistended. Nontender. EXTREMITIES: Normal range of motion. No clubbing or cyanosis. Peripheral pulses intact. No lower extremity edema NEUROLOGIC: Awake and alert. Oriented x 3. ASSESSMENT: Sepsis Atrial fibrillation with RVR, paroxysmal Left bundle branch block End-stage renal disease on hemodialysis Abnormal troponin, likely secondary to CKD Anemia of chronic disease Hypertension Hyperlipidemia Diabetes Obstructive sleep apnea with CPAP use History of TAVR, July 2023, [facility] PLAN: 2D echo to assess cardiac structure and function Resume Coumadin. Monitor INR. Discontinue IV Heparin Add metoprolol 25mg TID Continue telemetry monitoring Further recommendations pending patient course Nurse practitioner note has been reviewed by physician. Signing provider agrees with the documented findings, assessment, and plan of care documented by [employer] as a scribe. Past Medical History Past Medical History: Atrial Fibrillation, Atrial Flutter, Diabetes Mellitus, Dialysis, Hyperlipidemia, Renal Disease, Sleep Apnea/CPAP/BIPAP Additional Past Medical History / Comment(s): MWF DIALYSIS , uses cpap ,dialysis graft in lft arm History of Any Multi-Drug Resistant Organisms: None Reported Past Surgical History: Cardiac Valve Replacement, Tonsillectomy Additional Past Surgical History / Comment(s): graft for dialysis Past Anesthesia/Blood Transfusion Reactions: No Reported Reaction Smoking Status: Former smoker - Past Family History Father Family Medical History: No Reported History Medications and Allergies Home Medications Medication Instructions Recorded Confirmed Type Alogliptin Benzoate [Alogliptin] 6.25 mg PO HS 11/20/23 02/15/24 History Insulin Glargine,Hum.rec.anlog 45 units SQ HS 11/20/23 02/15/24 History [Lantus Solostar Pen] Multivitamins, Thera [Multivitamin 1 tab PO DAILY 11/20/23 02/15/24 History (formulary)] Wiley-3/Dha/Epa/Fish Oil [Fish Oil 1,000 mg PO DAILY 11/20/23 02/15/24 History 1,000 mg Softgel] Tamsulosin HCl [Flomax] 0.4 mg PO HS 11/20/23 02/15/24 History Warfarin [Coumadin] 2.5 mg PO DIRECTED 11/20/23 02/15/24 History diphenhydrAMINE HCL [Benadryl] 25 mg PO HS 11/20/23 02/15/24 History Lovastatin [Mevacor] 10 mg PO HS 02/15/24 02/15/24 History Allergies Allergy/AdvReac Type Severity Reaction Status Date / Time No Known Allergies Allergy Verified 02/15/24 16:59 Physical Exam Vitals: Vital Signs Temp Pulse Resp BP Pulse Ox FiO2 02/16/24 08:23 30 02/16/24 08:19 100 40 02/16/24 04:21 99 20 101/54 100 02/16/24 03:39 40 02/16/24 02:00 105 H 24 97/54 100 02/16/24 00:12 40 02/15/24 23:25 85/60 02/15/24 23:14 99.4 F 158 H 33 H 91/55 100 02/15/24 23:06 50 02/15/24 22:40 99 02/15/24 22:29 60 02/15/24 22:00 144 H 18 191/79 70 L 02/15/24 21:34 98.6 F 93 16 108/53 02/15/24 17:29 101.5 F H 147 H 26 H 97/48 84 L 02/15/24 13:48 104.1 F H 140 H 16 196/98 97 Intake and Output 02/15/24 02/16/24 02/16/24 22:59 06:59 14:59 Intake Total 52.5 Balance 52.5 Intake: Intake, IV Titration 52.5 Amount Heparin Sod,Pork in 0.45% 52.5 NaCl 25,000 unit In 0.45 % NaCl 1 250ml.bag @ 9. 503 UNITS/KG/HR 10 mls/hr IV .Q24H COUNT INCLUDES THE [facility] Rx#: [id number] Results 02/16/24 03:02 02/16/24 03:02 Cardiac Enzymes 02/15/24 02/15/24 02/15/24 Range/Units 14:04 14:04 17:36 AST 38 (17-59) U/L Troponin I 0.171 H* 0.203 H* (0.000-0.034) ng/mL 02/15/24 02/16/24 Range/Units 20:43 03:02 AST 52 (17-59) U/L Troponin I 0.276 H* (0.000-0.034) ng/mL Coagulation 02/15/24 02/15/24 02/16/24 Range/Units 14:04 23:31 03:02 PT 21.7 H 18.9 H (10.0-12.5) sec APTT 41.5 H 96.2 H (22.0-30.0) sec CBC 02/15/24 02/16/24 Range/Units 14:04 03:02 WBC 19.4 H 17.4 H (3.8-10.6) k/uL RBC 3.59 L 3.05 L (4.30-5.90) m/uL Hgb 11.3 L 9.8 L D (13.0-17.5) gm/dL Hct 34.0 L 29.4 L (39.0-53.0) % Plt Count 131 L 92 L (150-450) k/uL Comprehensive Metabolic Panel 02/15/24 02/16/24 Range/Units 14:04 03:02 Sodium 137 136 L (137-145) mmol/L Potassium 4.0 3.5 (3.5-5.1) mmol/L Chloride 97 L 101 (98-107) mmol/L Carbon Dioxide 29 26 (22-30) mmol/L BUN 76 H 87 H (9-20) mg/dL Creatinine 3.74 H 4.79 H (0.66-1.25) mg/dL Glucose 197 H 213 H (74-99) mg/dL Calcium 8.8 8.1 L (8.4-10.2) mg/dL AST 38 52 (17-59) U/L ALT 28 32 (4-49) U/L Alkaline Phosphatase 67 53 (38-126) U/L Total Protein 7.2 5.5 L (6.3-8.2) g/dL Albumin 4.3 2.9 L (3.5-5.0) g/dL Current Medications Generic Name Dose Route Start Last Admin Trade Name Freq PRN Reason Stop Dose Admin Acetaminophen 650 mg 02/15/24 16:45 Acetaminophen Tab 325 Mg Tab PO Q6HR PRN Mild Pain or Fever > 100.5 Atorvastatin Calcium 10 mg 02/15/24 21:00 02/15/24 21:09 Atorvastatin 10 Mg Tab PO 10 mg HS LAKISHA Administration Dextrose/Water 25 ml 02/15/24 17:32 Dextrose 50% Syringe 50 Ml IVP PER PROTOCOL PRN Hypoglycemia Protocol Dextrose/Water 50 ml 02/15/24 17:32 Dextrose 50% Syringe 50 Ml IVP PER PROTOCOL PRN Hypoglycemia Protocol Heparin Sodium (Porcine) 0 unit 02/15/24 17:26 Heparin Sodium 1,000 Un/Ml (10ml Vl) IV PER PROTOCOL PRN Low PTT Protocol Sodium Chloride 1,000 mls @ 130 mls/hr 02/15/24 16:45 02/16/24 04:26 Saline 0.9% IV Not Given .[id number] LAKISHA Heparin Sodium/Sodium Chloride 250 mls @ 10 mls/hr 02/15/24 17:30 02/16/24 01:28 25,000 unit/ Sodium Chloride IV 7.503 units/kg/hr .Q24H LAKISHA 7.896 mls/hr Titration Protocol 9.503 UNITS/KG/HR Cefepime HCl 1 gm/ Sodium 50 mls @ 12.5 mls/hr 02/16/24 17:45 02/15/24 20:03 Chloride IVPB 12.5 mls/hr Q8HR LAKISHA Administration Vancomycin HCl 1,750 mg/ 500 mls @ 167 mls/hr 02/16/24 18:00 Sodium Chloride IVPB 02/16/24 20:59 ONCE ONE Ibuprofen 400 mg 02/15/24 16:45 Ibuprofen 400 Mg Tab PO Q6HR PRN Mild Pain or Fever > 100.5 Insulin Aspart 0 unit 02/15/24 21:00 02/15/24 21:31 Insulin Aspart (Novolog) 100 Unit/Ml Vial SQ 6 unit ACHS LAKISHA Administration Protocol Miscellaneous Information 1 each 02/15/24 17:27 Vancomycin Iv Per Pharmacy 1 Each Misc MISCELLANE DIRECTED PRN Per Protocol Protocol Naloxone HCl 0.2 mg 02/15/24 16:45 Naloxone 0.4 Mg/Ml 1 Ml Vial IV Q2M PRN Opioid Reversal Ondansetron HCl 4 mg 02/15/24 16:45 Ondansetron 4 Mg/2 Ml Vial IVP Q8HR PRN Nausea And Vomiting Tamsulosin HCl 0.4 mg 02/15/24 21:00 02/15/24 21:09 Tamsulosin 0.4 Mg Cap.Er.24h PO 0.4 mg HS LAKISHA Administration Intake and Output 02/15/24 02/16/24 02/16/24 22:59 06:59 14:59 Intake Total 52.5 Balance 52.5 Intake: Intake, IV Titration 52.5 Amount Heparin Sod,Pork in 0.45% 52.5 NaCl 25,000 unit In 0.45 % NaCl 1 250ml.bag @ 9. 503 UNITS/KG/HR 10 mls/hr IV .Q24H COUNT INCLUDES THE [facility] Rx#: [id number] 02/16/24 03:02 02/16/24 03:02
--- NOTE | 2024-02-16 12:51 | P.PN ---
Subjective Progress Note Date: 02/16/24 78 year old M with PMH of DM, AFib, h/o AV replacement, HLD, ESRD on HD MWF, BPH present to the ED. and son is at bedside providing majory of the history. noted patient was waking up frequently through the night to urinate. This morning, he rolled off the side of the bed. He was noted to be extremely weak and somewhat confused. Normally able to take care of his ADLs and IADLs. They took him to [facility]. He was noted to have a fever and elevated HR. He was given some medication for his elevated HR and they discharged him from the ED. He attempted to go to dialysis today which was terminated after one hour, he was sent to the hospital for fever and elevated HR. reports patient was completely normal last night prior to this morning and did not have any complaints. At this time he complaints of dysuria. In the ED he underwent extensive evaluation. BP 196/98, HR 140, T 104.1 F, 97% on RA. CBC, Coag panel, CMP was done significant for WBC 194., Hg 11.3, Hct 34, Plt 131, PT 21.7, INR 2.2, APTT 41.5, Cl 97, BUN 76, Cr 3.74, glu 197. Phos 2.4. Lactic acid 2.6. Troponin 0.171. EKG showed atrial fibrillation with RVR rate of 138. CXR showed pulmonary vascular congestion and bilateral pleural effusion. Patient was started on a Cardizem drip, IV Tylenol, Rocephin/Azithromycin, normal saline and is admitted for further workup and management. Antibiotics was switched to Vancomycin and Cefepime for broad spectrum antibiotic coverage. Heparin drip started for NSTEMI. Patient had respiratory distress overnight requiring BiPAP. 02/15 Patient was seen and examined. Currently on BiPAP. Currently off normal saline and IV Cardizem. BP 120s/80s and HR in the 90s. CBC WBC 17.4, Hg 9.8, Hct 29.4, Plt 92. INR 1.9. BMP Na 136, BUN 87, Cr 4.79, glu 213, Ca 8.1, total protein 5.5, alb 2.9. A1c 8.1. Troponin 0.203, 0.276. TSH 0.787. UA negative LE or nitrite. RSV, COVID, Flu negative. Echocardiogram shows EF 40-45%, TAVR with mild-mod perivalvular regurgitation, mild MR/TR. CXR done today shows cardiomegaly with pulmonary vascular congestion. Started on Lasix 40 mg IV QD. Nephrology consulted, plans for HD today. Cardiology consulted, heparin drip discontinued, started Metoprolol and Coumadin. BCx + gram positive cocci in clusters, maintained on Vancomycin dosed per pharmacy (D2) and Cefepime 1g IV TID (D2), ID consulted. General: non toxic, no distress, appears at stated age, on BiPAP Derm: warm, dry Head: atraumatic, normocephalic, symmetric Eyes: EOMI, no lid lag, anicteric sclera Mouth: no lip lesion, mucus membranes moist Cardiovascular: S1S2 irregular, no murmur Lungs: Decreased BS bilateral, no rhonchi, no rales , no accessory muscle use Abdominal: soft, nontender to palpation, no guarding, no appreciable organomegaly Ext: no gross muscle atrophy, 1+ lower extremity edema, no contractures Neuro: no focal neuro deficits Psych: More awake and responsive on BiPAP Atrial fibrillation with RVR: Cardizem drip discontinued, started on Metoprolol 25 mg PO TID. Heparin drip discontinued by Cardiology and restarted on Coumadin dosed per pharmacy. TSH and Echocardiogram as above. Cardiology on board. Acute hypoxic respiratory failure due to acute CHF exacerbation: EF 40-45% per Echo. Start Lasix 40 mg IV QD. Continue BiPAP as tolerated. Hopeful improvement with HD as well. Strict intake and outtake. Daily weights. Sepsis with gram + bacteremia: Continue Vancomycin dosed per pharmacy and Cefepime 1g IV TID. Follow BCx. UA, COVID/RSV/Flu negative. Telemetry monitoring. ID consulted. Troponin elevation likely Type II AK: Heparin drip discontinued. Echo as above. Metoprolol as above. Lipitor 10 mg PO QHS. Cardiology on board. ESRD on HD WMF: Nephrology on board to resume HD. Normocytic anemia: Likely due to AOCD from ESRD. No signs of active bleeding. Monitor. Thrombocytopenia: Possibly reactive. Monitor. Diabetes mellitus: ISS. Accuchecks ACHS. Hypoglycemic precautions. Dyslipidemia: Lipitor as above. BPH: Flomax 0.4 mg PO QHS. CODE STATUS: FULL CODE. DVT Prophylaxis: Coumadin GI Prophylaxis: Designated medical POA if patient is not able to make medical decisions for themselves: I have reviewed the following mgmt consultant notes: Nephrology I have reviewed the results of the following tests: CBC, BMP, A1c, Trop x 2, TSH, UA, RSV/Flu/COVID, Echo. I have ordered the following tests: CBC, BMP (patient on IV lasix and Vancomycin), repeat BCx. I have discussed the care of this patient with the following independent historian: Son and I have independently interpreted the following test below: CXR I have discussed the management of this patient with the following physician: Objective - Vital Signs Vital signs: Vital Signs Temp 97.4 F L 02/16/24 08:00 Pulse 94 02/16/24 08:00 Resp 16 02/16/24 08:00 BP 108/65 02/16/24 08:00 Pulse Ox 100 02/16/24 08:19 FiO2 30 02/16/24 12:01 Intake & Output 02/15/24 02/16/24 02/16/24 18:59 06:59 18:59 Intake Total 52.5 Balance 52.5 Weight 105.233 kg Intake: Intake, IV Titration 52.5 Amount Heparin Sod,Pork in 0.45% 52.5 NaCl 25,000 unit In 0.45 % NaCl 1 250ml.bag @ 9. 503 UNITS/KG/HR 10 mls/hr IV .Q24H [facility] Rx#: [id number] - Labs CBC & Chem 7: 02/16/24 03:02 02/16/24 03:02 Labs: Abnormal Lab Results - Last 24 Hours (Table) 02/15/24 02/15/24 02/15/24 Range/Units 14:04 14:04 14:04 WBC 19.4 H (3.8-10.6) k/uL RBC 3.59 L (4.30-5.90) m/uL Hgb 11.3 L (13.0-17.5) gm/dL Hct 34.0 L (39.0-53.0) % RDW (11.5-15.5) % Plt Count 131 L (150-450) k/uL Neutrophils # 18.2 H (1.3-7.7) k/uL Neutrophils # (Manual) (1.3-7.7) k/uL Lymphocytes # 0.3 L (1.0-4.8) k/uL PT 21.7 H (10.0-12.5) sec INR 2.2 H (<1.2) APTT 41.5 H (22.0-30.0) sec Sodium (137-145) mmol/L Chloride 97 L (98-107) mmol/L BUN 76 H (9-20) mg/dL Creatinine 3.74 H (0.66-1.25) mg/dL Glucose 197 H (74-99) mg/dL POC Glucose (mg/dL) (70-110) mg/dL Hemoglobin A1c (<=6.0) % Plasma Lactic Acid Chaz (0.7-2.0) mmol/L Calcium (8.4-10.2) mg/dL Phosphorus 2.4 L (2.5-4.5) mg/dL Troponin I (0.000-0.034) ng/mL Total Protein (6.3-8.2) g/dL Albumin (3.5-5.0) g/dL Urine Protein (Negative) Urine Glucose (UA) (Negative) Urine Blood (Negative) 02/15/24 02/15/24 02/15/24 Range/Units 14:04 14:04 17:14 WBC (3.8-10.6) k/uL RBC (4.30-5.90) m/uL Hgb (13.0-17.5) gm/dL Hct (39.0-53.0) % RDW (11.5-15.5) % Plt Count (150-450) k/uL Neutrophils # (1.3-7.7) k/uL Neutrophils # (Manual) (1.3-7.7) k/uL Lymphocytes # (1.0-4.8) k/uL PT (10.0-12.5) sec INR (<1.2) APTT (22.0-30.0) sec Sodium (137-145) mmol/L Chloride (98-107) mmol/L BUN (9-20) mg/dL Creatinine (0.66-1.25) mg/dL Glucose (74-99) mg/dL POC Glucose (mg/dL) (70-110) mg/dL Hemoglobin A1c (<=6.0) % Plasma Lactic Acid Chaz 2.6 H* (0.7-2.0) mmol/L Calcium (8.4-10.2) mg/dL Phosphorus (2.5-4.5) mg/dL Troponin I 0.171 H* (0.000-0.034) ng/mL Total Protein (6.3-8.2) g/dL Albumin (3.5-5.0) g/dL Urine Protein 3+ H (Negative) Urine Glucose (UA) 2+ H (Negative) Urine Blood Small H (Negative) 02/15/24 02/15/24 02/15/24 Range/Units 17:36 20:43 21:08 WBC (3.8-10.6) k/uL RBC (4.30-5.90) m/uL Hgb (13.0-17.5) gm/dL Hct (39.0-53.0) % RDW (11.5-15.5) % Plt Count (150-450) k/uL Neutrophils # (1.3-7.7) k/uL Neutrophils # (Manual) (1.3-7.7) k/uL Lymphocytes # (1.0-4.8) k/uL PT (10.0-12.5) sec INR (<1.2) APTT (22.0-30.0) sec Sodium (137-145) mmol/L Chloride (98-107) mmol/L BUN (9-20) mg/dL Creatinine (0.66-1.25) mg/dL Glucose (74-99) mg/dL POC Glucose (mg/dL) 266 H (70-110) mg/dL Hemoglobin A1c (<=6.0) % Plasma Lactic Acid Chaz (0.7-2.0) mmol/L Calcium (8.4-10.2) mg/dL Phosphorus (2.5-4.5) mg/dL Troponin I 0.203 H* 0.276 H* (0.000-0.034) ng/mL Total Protein (6.3-8.2) g/dL Albumin (3.5-5.0) g/dL Urine Protein (Negative) Urine Glucose (UA) (Negative) Urine Blood (Negative) 02/15/24 02/16/2402/15/24 Range/Units 23:31 03:02 03:02 WBC (3.8-10.6) k/uL RBC (4.30-5.90) m/uL Hgb (13.0-17.5) gm/dL Hct (39.0-53.0) % RDW (11.5-15.5) % Plt Count (150-450) k/uL Neutrophils # (1.3-7.7) k/uL Neutrophils # (Manual) (1.3-7.7) k/uL Lymphocytes # (1.0-4.8) k/uL PT 18.9 H (10.0-12.5) sec INR 1.9 H (<1.2) APTT 96.2 H (22.0-30.0) sec Sodium (137-145) mmol/L Chloride (98-107) mmol/L BUN (9-20) mg/dL Creatinine (0.66-1.25) mg/dL Glucose (74-99) mg/dL POC Glucose (mg/dL) (70-110) mg/dL Hemoglobin A1c 8.8 H (<=6.0) % Plasma Lactic Acid Chza (0.7-2.0) mmol/L Calcium (8.4-10.2) mg/dL Phosphorus (2.5-4.5) mg/dL Troponin I (0.000-0.034) ng/mL Total Protein (6.3-8.2) g/dL Albumin (3.5-5.0) g/dL Urine Protein (Negative) Urine Glucose (UA) (Negative) Urine Blood (Negative) 02/16/24 02/16/24 02/16/24 Range/Units 03:02 03:02 08:40 WBC 17.4 H (3.8-10.6) k/uL RBC 3.05 L (4.30-5.90) m/uL Hgb 9.8 L D (13.0-17.5) gm/dL Hct 29.4 L (39.0-53.0) % RDW 15.6 H (11.5-15.5) % Plt Count 92 L (150-450) k/uL Neutrophils # (1.3-7.7) k/uL Neutrophils # (Manual) 16.00 H (1.3-7.7) k/uL Lymphocytes # (1.0-4.8) k/uL PT (10.0-12.5) sec INR (<1.2) APTT (22.0-30.0) sec Sodium 136 L (137-145) mmol/L Chloride (98-107) mmol/L BUN 87 H (9-20) mg/dL Creatinine 4.79 H (0.66-1.25) mg/dL Glucose 213 H (74-99) mg/dL POC Glucose (mg/dL) 301 H (70-110) mg/dL Hemoglobin A1c (<=6.0) % Plasma Lactic Acid Chaz (0.7-2.0) mmol/L Calcium 8.1 L (8.4-10.2) mg/dL Phosphorus (2.5-4.5) mg/dL Troponin I (0.000-0.034) ng/mL Total Protein 5.5 L (6.3-8.2) g/dL Albumin 2.9 L (3.5-5.0) g/dL Urine Protein (Negative) Urine Glucose (UA) (Negative) Urine Blood (Negative) 02/16/24 Range/Units 12:03 WBC (3.8-10.6) k/uL RBC (4.30-5.90) m/uL Hgb (13.0-17.5) gm/dL Hct (39.0-53.0) % RDW (11.5-15.5) % Plt Count (150-450) k/uL Neutrophils # (1.3-7.7) k/uL Neutrophils # (Manual) (1.3-7.7) k/uL Lymphocytes # (1.0-4.8) k/uL PT (10.0-12.5) sec INR (<1.2) APTT (22.0-30.0) sec Sodium (137-145) mmol/L Chloride (98-107) mmol/L BUN (9-20) mg/dL Creatinine (0.66-1.25) mg/dL Glucose (74-99) mg/dL POC Glucose (mg/dL) 327 H (70-110) mg/dL Hemoglobin A1c (<=6.0) % Plasma Lactic Acid Chaz (0.7-2.0) mmol/L Calcium (8.4-10.2) mg/dL Phosphorus (2.5-4.5) mg/dL Troponin I (0.000-0.034) ng/mL Total Protein (6.3-8.2) g/dL Albumin (3.5-5.0) g/dL Urine Protein (Negative) Urine Glucose (UA) (Negative) Urine Blood (Negative) Microbiology - Last 24 Hours (Table) 02/15/24 17:56 Blood Culture Gram Stain - Preliminary Blood 02/15/24 18:06 Blood Culture Gram Stain - Preliminary Blood
[2024-02-16] MEDS: METOPROLOL TARTRATE 25 MG TAB PO SCH (13:10)
--- NOTE | 2024-02-16 14:35 | P.GSCN ---
History of Present Illness Consult date: 02/16/24 Reason for Consult: Thrombosed AV graft Requesting physician: Laura Serra History of present illness: 78-year-old male with multiple comorbidities including disease atrial fibrillation and warfarin, end-stage renal disease on hemodialysis, diabetes mellitus, hyperlipidemia, sleep apnea and BiPAP, and cardiac valve replacement was a transfer from [facility] for atrial fibrillation with RVR. Yesterday patient states he went to hemodialysis as scheduled he goes Fridays. He states that they were only able to do about half of his dialysis due to malfunctioning of the AV fistula. States he has had his AV fistula in the left upper extremity which he believes was put in in April 2023 at the [facility] in [place]. States he has had issues with that in the past and they have had to "clean it out." Vascular surgery consulted for thrombosed AV graft. He had been started on IV Cardizem as well as heparin drip. He was also noted to have a max temp of 104.1 on admission, patient admitted for sepsis with positive blood cultures with staph aureus. Patient has been afebrile today. He denies any shortness of breath, chest pain, abdominal pain, nausea or vomiting. States he wears BiPAP at home. He is currently on BiPAP during this examination. They are discontinuing heparin at this time. He denies any pain in the left upper extremity. Review of Systems A 14 point review systems was completed all pertinent positives and negatives as stated in the HPI. Past Medical History Past Medical History: Atrial Fibrillation, Atrial Flutter, Diabetes Mellitus, Dialysis, Hyperlipidemia, Renal Disease, Sleep Apnea/CPAP/BIPAP Additional Past Medical History / Comment(s): MWF DIALYSIS , uses cpap ,dialysis graft in lft arm History of Any Multi-Drug Resistant Organisms: None Reported Past Surgical History: Cardiac Valve Replacement, Tonsillectomy Additional Past Surgical History / Comment(s): graft for dialysis Past Anesthesia/Blood Transfusion Reactions: No Reported Reaction Smoking Status: Former smoker - Past Family History Father Family Medical History: No Reported History Medications and Allergies Home Medications Medication Instructions Recorded Confirmed Type Alogliptin Benzoate [Alogliptin] 6.25 mg PO HS 11/20/23 02/15/24 History Insulin Glargine,Hum.rec.anlog 45 units SQ HS 11/20/23 02/15/24 History [Lantus Solostar Pen] Multivitamins, Thera [Multivitamin 1 tab PO DAILY 11/20/23 02/15/24 History (formulary)] [place]-3/Dha/Epa/Fish Oil [Fish Oil 1,000 mg PO DAILY 11/20/23 02/15/24 History 1,000 mg Softgel] Tamsulosin HCl [Flomax] 0.4 mg PO HS 11/20/23 02/15/24 History Warfarin [Coumadin] 2.5 mg PO DIRECTED 11/20/23 02/15/24 History diphenhydrAMINE HCL [Benadryl] 25 mg PO HS 11/20/23 02/15/24 History Lovastatin [Mevacor] 10 mg PO HS 02/15/24 02/15/24 History Allergies Allergy/AdvReac Type Severity Reaction Status Date / Time No Known Allergies Allergy Verified 02/15/24 16:59 Surgical - Exam Vital Signs Temp Pulse Resp BP Pulse Ox 104.1 F H 140 H 16 196/98 97 02/15/24 13:48 02/15/24 13:48 02/15/24 13:48 02/15/24 13:48 02/15/24 13:48 General appearance: The patient is alert, oriented, appears in no acute di stress. Currently on BiPAP. HET: Head is normocephalic and atraumatic. Pupils are equal and reactive. Neck: Supple. Heart: Regular. Lungs: Equal expansion, normal respiratory effort. Abdomen: Soft, nontender, nondistended. Extremities: Normal skin color and turgor. Left upper extremity graft with nonpalpable thrill and no audible bruit. +2 radial pulse. Neurological: No focal deficits. Strength and sensation are grossly intact. Results - Labs 02/16/24 03:02 02/16/24 03:02 Abnormal Lab Results - Last 24 Hours (Table) 02/15/24 02/15/24 02/15/24 Range/Units 14:04 14:04 14:04 WBC 19.4 H (3.8-10.6) k/uL RBC 3.59 L (4.30-5.90) m/uL Hgb 11.3 L (13.0-17.5) gm/dL Hct 34.0 L (39.0-53.0) % RDW (11.5-15.5) % Plt Count 131 L (150-450) k/uL Neutrophils # 18.2 H (1.3-7.7) k/uL Neutrophils # (Manual) (1.3-7.7) k/uL Lymphocytes # 0.3 L (1.0-4.8) k/uL PT 21.7 H (10.0-12.5) sec INR 2.2 H (<1.2) APTT 41.5 H (22.0-30.0) sec Sodium (137-145) mmol/L Chloride 97 L (98-107) mmol/L BUN 76 H (9-20) mg/dL Creatinine 3.74 H (0.66-1.25) mg/dL Glucose 197 H (74-99) mg/dL POC Glucose (mg/dL) (70-110) mg/dL Hemoglobin A1c (<=6.0) % Plasma Lactic Acid Chaz (0.7-2.0) mmol/L Calcium (8.4-10.2) mg/dL Phosphorus 2.4 L (2.5-4.5) mg/dL Troponin I (0.000-0.034) ng/mL Total Protein (6.3-8.2) g/dL Albumin (3.5-5.0) g/dL Urine Protein (Negative) Urine Glucose (UA) (Negative) Urine Blood (Negative) 02/15/24 02/15/24 02/15/24 Range/Units 14:04 14:04 17:14 WBC (3.8-10.6) k/uL RBC (4.30-5.90) m/uL Hgb (13.0-17.5) gm/dL Hct (39.0-53.0) % RDW (11.5-15.5) % Plt Count (150-450) k/uL Neutrophils # (1.3-7.7) k/uL Neutrophils # (Manual) (1.3-7.7) k/uL Lymphocytes # (1.0-4.8) k/uL PT (10.0-12.5) sec INR (<1.2) APTT (22.0-30.0) sec Sodium (137-145) mmol/L Chloride (98-107) mmol/L BUN (9-20) mg/dL Creatinine (0.66-1.25) mg/dL Glucose (74-99) mg/dL POC Glucose (mg/dL) (70-110) mg/dL Hemoglobin A1c (<=6.0) % Plasma Lactic Acid Chaz 2.6 H* (0.7-2.0) mmol/L Calcium (8.4-10.2) mg/dL Phosphorus (2.5-4.5) mg/dL Troponin I 0.171 H* (0.000-0.034) ng/mL Total Protein (6.3-8.2) g/dL Albumin (3.5-5.0) g/dL Urine Protein 3+ H (Negative) Urine Glucose (UA) 2+ H (Negative) Urine Blood Small H (Negative) 02/15/24 02/15/24 02/15/24 Range/Units 17:36 20:43 21:08 WBC (3.8-10.6) k/uL RBC (4.30-5.90) m/uL Hgb (13.0-17.5) gm/dL Hct (39.0-53.0) % RDW (11.5-15.5) % Plt Count (150-450) k/uL Neutrophils # (1.3-7.7) k/uL Neutrophils # (Manual) (1.3-7.7) k/uL Lymphocytes # (1.0-4.8) k/uL PT (10.0-12.5) sec INR (<1.2) APTT (22.0-30.0) sec Sodium (137-145) mmol/L Chloride (98-107) mmol/L BUN (9-20) mg/dL Creatinine (0.66-1.25) mg/dL Glucose (74-99) mg/dL POC Glucose (mg/dL) 266 H (70-110) mg/dL Hemoglobin A1c (<=6.0) % Plasma Lactic Acid Chaz (0.7-2.0) mmol/L Calcium (8.4-10.2) mg/dL Phosphorus (2.5-4.5) mg/dL Troponin I 0.203 H* 0.276 H* (0.000-0.034) ng/mL Total Protein (6.3-8.2) g/dL Albumin (3.5-5.0) g/dL Urine Protein (Negative) Urine Glucose (UA) (Negative) Urine Blood (Negative) 02/15/24 02/16/24 02/16/24 Range/Units 23:31 03:02 03:02 WBC (3.8-10.6) k/uL RBC (4.30-5.90) m/uL Hgb (13.0-17.5) gm/dL Hct (39.0-53.0) % RDW (11.5-15.5) % Plt Count (150-450) k/uL Neutrophils # (1.3-7.7) k/uL Neutrophils # (Manual) (1.3-7.7) k/uL Lymphocytes # (1.0-4.8) k/uL PT 18.9 H (10.0-12.5) sec INR 1.9 H (<1.2) APTT 96.2 H (22.0-30.0) sec Sodium (137-145) mmol/L Chloride (98-107) mmol/L BUN (9-20) mg/dL Creatinine (0.66-1.25) mg/dL Glucose (74-99) mg/dL POC Glucose (mg/dL) (70-110) mg/dL Hemoglobin A1c 8.8 H (<=6.0) % Plasma Lactic Acid Chaz (0.7-2.0) mmol/L Calcium (8.4-10.2) mg/dL Phosphorus (2.5-4.5) mg/dL Troponin I (0.000-0.034) ng/mL Total Protein (6.3-8.2) g/dL Albumin (3.5-5.0) g/dL Urine Protein (Negative) Urine Glucose (UA) (Negative) Urine Blood (Negative) 02/16/24 02/16/24 02/16/24 Range/Units 03:02 03:02 08:40 WBC 17.4 H (3.8-10.6) k/uL RBC 3.05 L (4.30-5.90) m/uL Hgb 9.8 L D (13.0-17.5) gm/dL Hct 29.4 L (39.0-53.0) % RDW 15.6 H (11.5-15.5) % Plt Count 92 L (150-450) k/uL Neutrophils # (1.3-7.7) k/uL Neutrophils # (Manual) 16.00 H (1.3-7.7) k/uL Lymphocytes # (1.0-4.8) k/uL PT (10.0-12.5) sec INR (<1.2) APTT (22.0-30.0) sec Sodium 136 L (137-145) mmol/L Chloride (98-107) mmol/L BUN 87 H (9-20) mg/dL Creatinine 4.79 H (0.66-1.25) mg/dL Glucose 213 H (74-99) mg/dL POC Glucose (mg/dL) 301 H (70-110) mg/dL Hemoglobin A1c (<=6.0) % Plasma Lactic Acid Chaz (0.7-2.0) mmol/L Calcium 8.1 L (8.4-10.2) mg/dL Phosphorus (2.5-4.5) mg/dL Troponin I (0.000-0.034) ng/mL Total Protein 5.5 L (6.3-8.2) g/dL Albumin 2.9 L (3.5-5.0) g/dL Urine Protein (Negative) Urine Glucose (UA) (Negative) Urine Blood (Negative) 02/16/24 Range/Units 12:03 WBC (3.8-10.6) k/uL RBC (4.30-5.90) m/uL Hgb (13.0-17.5) gm/dL Hct (39.0-53.0) % RDW (11.5-15.5) % Plt Count (150-450) k/uL Neutrophils # (1.3-7.7) k/uL Neutrophils # (Manual) (1.3-7.7) k/uL Lymphocytes # (1.0-4.8) k/uL PT (10.0-12.5) sec INR (<1.2) APTT (22.0-30.0) sec Sodium (137-145) mmol/L Chloride (98-107) mmol/L BUN (9-20) mg/dL Creatinine (0.66-1.25) mg/dL Glucose (74-99) mg/dL POC Glucose (mg/dL) 327 H (70-110) mg/dL Hemoglobin A1c (<=6.0) % Plasma Lactic Acid Chaz (0.7-2.0) mmol/L Calcium (8.4-10.2) mg/dL Phosphorus (2.5-4.5) mg/dL Troponin I (0.000-0.034) ng/mL Total Protein (6.3-8.2) g/dL Albumin (3.5-5.0) g/dL Urine Protein (Negative) Urine Glucose (UA) (Negative) Urine Blood (Negative) Microbiology - Last 24 Hours (Table) 02/15/24 18:06 Blood Culture Gram Stain - Preliminary Blood Blood Culture - Preliminary Molecular ID 02/15/24 17:56 Blood Culture Gram Stain - Preliminary Blood Diabetes panel 02/15/24 02/16/24 02/16/24 Range/Units 14:04 03:02 03:02 Sodium 137 136 L (137-145) mmol/L Potassium 4.0 3.5 (3.5-5.1) mmol/L Chloride 97 L 101 (98-107) mmol/L Carbon Dioxide 29 26 (22-30) mmol/L BUN 76 H 87 H (9-20) mg/dL Creatinine 3.74 H 4.79 H (0.66-1.25) mg/dL Glucose 197 H 213 H (74-99) mg/dL Hemoglobin A1c 8.8 H (<=6.0) % Calcium 8.8 8.1 L (8.4-10.2) mg/dL AST 38 52 (17-59) U/L ALT 28 32 (4-49) U/L Alkaline Phosphatase 67 53 (38-126) U/L Total Protein 7.2 5.5 L (6.3-8.2) g/dL Albumin 4.3 2.9 L (3.5-5.0) g/dL Thyroid panel 02/15/24 Range/Units 17:15 TSH 0.787 (0.465-4.680) mIU/L Calcium panel 02/15/24 02/16/24 Range/Units 14:04 03:02 Calcium 8.8 8.1 L (8.4-10.2) mg/dL Phosphorus 2.4 L (2.5-4.5) mg/dL Albumin 4.3 2.9 L (3.5-5.0) g/dL Pituitary panel 02/15/24 02/15/24 02/16/24 Range/Units 14:04 17:15 03:02 Sodium 137 136 L (137-145) mmol/L Potassium 4.0 3.5 (3.5-5.1) mmol/L Chloride 97 L 101 (98-107) mmol/L Carbon Dioxide 29 26 (22-30) mmol/L BUN 76 H 87 H (9-20) mg/dL Creatinine 3.74 H 4.79 H (0.66-1.25) mg/dL Glucose 197 H 213 H (74-99) mg/dL Calcium 8.8 8.1 L (8.4-10.2) mg/dL TSH 0.787 (0.465-4.680) mIU/L Adrenal panel 02/15/24 02/16/24 Range/Units 14:04 03:02 Sodium 137 136 L (137-145) mmol/L Potassium 4.0 3.5 (3.5-5.1) mmol/L Chloride 97 L 101 (98-107) mmol/L Carbon Dioxide 29 26 (22-30) mmol/L BUN 76 H 87 H (9-20) mg/dL Creatinine 3.74 H 4.79 H (0.66-1.25) mg/dL Glucose 197 H 213 H (74-99) mg/dL Calcium 8.8 8.1 L (8.4-10.2) mg/dL Total Bilirubin 0.6 0.6 (0.2-1.3) mg/dL AST 38 52 (17-59) U/L ALT 28 32 (4-49) U/L Alkaline Phosphatase 67 53 (38-126) U/L Total Protein 7.2 5.5 L (6.3-8.2) g/dL Albumin 4.3 2.9 L (3.5-5.0) g/dL - Imaging Comments: Chest x-ray reports cardiomegaly, pulmonary vascular congestion and bilateral pleural effusions. Correlate with BNP for congestive heart failure. Assessment and Plan Assessment: 1. End-stage renal disease requiring hemodialysis 2. Thrombosed left upper extremity AV graft 3. Bacteremia 4. Atrial fibrillation with RVR 5. History of coronary artery disease 6. Diabetes mellitus 7. Obstructive sleep apnea with BiPAP Plan: 1. Keep n.p.o. 2. Keep heparin drip off and do not start Coumadin until after procedure 3. Patient scheduled for left upper extremity AV graft thrombectomy 4. Hemodialysis per recommendations from nephrology 5. Rest of medical management per primary medical team Thank you for this consultation, we will continue to follow. The impression and plan of care has been dictated as directed. I performed a history and examination of this patient, discussed the same with the dictator. I agree with the dictator's note ,documented as a scribe. Any additional findings or plans will be noted.
[2024-02-16] MEDS ORDERED: LIDOCAINE 1% INJ 10MG/ML (20 ML MDV) ONE (15:02)
[2024-02-16] MEDS: IV FLUID CONTINUATION 1,000 ML IV ONE (15:15)
[2024-02-16] MEDS: LIDOCAINE 1% INJ 10MG/ML (20 ML MDV) SQ ONE (15:34)
[2024-02-16] MEDS: ALTEPLASE 2 MG VIAL (CATHFLO) IA ONE (16:00)
--- NOTE | 2024-02-16 16:14 | P.OP ---
Date of Procedure: 02/16/24 Description of Procedure: Preoperative diagnosis: Malfunctioning left upper extremity arteriovenous graft Postoperative diagnosis: Malfunctioning left upper extremity arteriovenous graft, mild outflow stenosis at the subclavian vein, thrombus at the inflow Procedure: Left upper extremity fistulogram with ultrasound guided access, percutaneous transluminal balloon angioplasty of the left subclavian vein, initiation of thrombolysis at the proximal aspect of the graft Surgeon: Luis Freed DO Anesthesia : Local Estimated blood loss: Minimal Complications: None Condition: Stable Disposition: Palpable thrill left upper extremity arteriovenous graft Indications: 78-year-old gentleman presented to the emergency department from the dialysis center secondary to unable to access his graft on the left and they were pulling clots. He was having increased heart rate and hypertensive issues and therefore was sent to the emergency department. Upon evaluation in the emergency department there was no thrill in the left upper extremity graft and patient was fluid overloaded and requires hemodialysis. After discussion with the security officers and guards he required urgent percutaneous intervention and revascularization of the AV graft. Operative narrative: After written informed consent was obtained the patient all risks benefits competitions were described the patient is brought to the [employer] and laid in a supine position with their left arm outstretched on an armboard. The area of the arm was prepped and draped in usual sterile fashion. Utilizing local anesthetic the fistula was accessed under ultrasound guidance and a 6-Slov[place] sheath was placed. Fistulogram was then obtained demonstrating contrast holding up in the subclavian vein as well as some thrombus within the proximal aspect of the graft. Percutaneous transluminal balloon angioplasty was then placed across the subclavian vein after an 035 Glidewire was placed across this area and balloon angioplasty was performed with resolution of the stenosis. Once in the graft balloon was placed and tPA was infused in order to get tPA to infuse in the proximal aspect. This was allowed to sit for approximately 5 minutes. Final angiogram was obtained demonstrating brisk flow through the graft with no evidence of residual thrombus or stenosis. Of note he was tachycardic throughout the entirety of the procedure and on a BiPAP. Internal medicine was contacted and patient will be started on a Cardizem drip. Sheaths were then removed and suture was placed for hemostasis. The area was cleansed and dressings were placed. Patient tolerated the procedure well and was sent to his room for dialysis.
[2024-02-16] MEDS: IOPAMIDOL-370 100ML BTL INJ ONE (16:15)
[2024-02-16] MEDS: DILTIAZEM 125 MG in SODIUM CHLORIDE 0.9% 100 ML IV SCH ×2 (16:24→17:22)
[2024-02-16] MEDS: DILTIAZEM DRIP BOLUS FROM BAG 1 MG SOLN IV ONE (16:32)
[2024-02-16] MEDS: FUROSEMIDE 10 MG/ML 10 ML VIAL IV STA (16:35)
[2024-02-16 16:37] LABS: Glucose,Whole Blood 280 mg/dL (70-110)
[2024-02-16 16:44] LABS: ABG HCO3 25 mmol/L (21-25); ABG PCO2 42 mmHg (35-45); ABG PH 7.39 (7.35-7.45); ABG PO2 94 mmHg (83-108); Allen Test Performed? Yes
[2024-02-16] MEDS: ALTEPLASE 2 MG VIAL (CATHFLO) IV STA (16:50)
[2024-02-16 16:53] LABS: Glucose,Whole Blood 247 mg/dL (70-110)
[2024-02-16] MEDS: ACETAMINOPHEN TAB 325 MG TAB PO PRN (17:17)
--- NOTE | 2024-02-16 17:44 | XR ---
EXAMINATION TYPE: XR chest 1V portable DATE OF EXAM: 02/16/2024 Comparison: 02/16/2024 earlier today Clinical History: 78-year-old male fever, CHF Findings: Heart borderline in size. Scattered pleural-based calcifications. Possibly sequela of prior specifics exposure; clinically correlate. Diffuse interstitial and patchy opacities have increased in the inte rval. No sizable pleural effusion on the frontal view. Impression: Worsening bilateral interstitial and patchy opacities. Consider atypical pneumonias or interstitial p ulmonary edema.
--- NOTE | 2024-02-16 17:49 | IR ---
EXAMINATION TYPE: IR fistula/abscess/sinus tract Intraoperative/procedural fluoroscopic services were provided. CLINICAL INDICATION:Male, 78 years old with history of left upper arm fistula, 4.9min fluoro, 7.93 Gy cm2; , [facility] Total fluoroscopy time is 4.9 min. DAP: 2.07 Gycm2 Please see the operative/procedural note for further details.
[2024-02-16] MEDS: MIDODRINE 5 MG TAB PO PRN (18:00)
[2024-02-16] MEDS: MIDODRINE 5 MG TAB PO ONE (19:53)
[2024-02-16] MEDS: NOREPINEPHRINE 4 MG in SODIUM CHLORIDE 0.9% 250 ML IV SCH (20:18)
[2024-02-16 21:16] LABS: Glucose,Whole Blood 131 mg/dL (70-110)
[2024-02-16] MEDS: WARFARIN 3 MG TAB PO ONE (22:28)
--- NOTE | 2024-02-17 01:18 | P.CNPUL ---
History of Present Illness Consult date: 02/17/24 Requesting physician: Krystal Fofana Reason for consult: other (Acute hypoxemic respiratory failure and ICU management) Chief complaint: Weakness History of present illness: Patient is a 78-year-old male with past medical history significant for atrial fibrillation anticoagulated on Coumadin, previous TAVR, hyperlipidemia, diabetes mellitus, end-stage renal disease receiving hemodialysis (Thursday, Thursday, Thursday schedule), obstructive sleep apnea with home BiPAP. Patient is technically a poor historian. Prior to coming in, patient was noted to be severely weak and somewhat confused by his . He did reportedly have a assisted fall from bed earlier in the week. I believe he was briefly evaluated by [facility] ER. Thursday, the patient was reportedly at the hemodialysis center. He was noted to have an elevated heart rate. Hemodialysis was terminated. Subsequently, he was brought into the emergency room for further evaluation on 02/15/2024. Heart rhythm on arrival was atrial fibrillation with rapid ventricular rate of 157 bpm. He was originally started on a Cardizem infusion which is currently off. He was also noted to be febrile. While in the emergency room, his left upper extremity AV graft was noted to be malfunctioning. Yesterday, 02/16/2024, he did undergo a left upper extremity fistulogram with ultrasound-guided access, percutaneous transluminal balloon angioplasty of the left subclavian vein, and thrombolysis at the proximal aspect of the graft. During the procedure, he developed some respiratory distress. He did receive 60 mg of IV Lasix. Patient reportedly still produces limited amounts of urine. Chest x-ray during these events showed worsening bilateral interstitial infiltrates concerning for interstitial edema versus atypical pneum onia. Negative for influenza, RSV, COVID. Considering patient's clinical presentation, favoring fluid overload. Patient was then transferred to the intensive care unit on BiPAP support with pressure settings of 10/5 and FiO2 of 60%. ABGs done on the settings included a PaO2 of 94, pCO2 of 42, pH of 7.39. FiO2 was then weaned down to 40%. It appears they were able to get his AV graft working, and patient just received stat hemodialysis. A total of 950 mL was removed. During hemodialysis, patient became hypotensive requiring the initiation of low-dose norepinephrine which is infusing at 0.03 mcg/kg/min. Heart rhythm remains atrial fibrillation, but now with a controlled ventricular response. He is currently lying in bed, on 2 L/min nasal cannula, in no acute distress. SpO2 is 98%. BiPAP is on standby. He is oriented x 3, but a poor historian. His short-term memory of events leading to his hospitalization are limited. no focal deficits. He denies any specific complaints. Shortness of breath is reportedly improved. Denies cough, sputum production, chest pain. Denies any heart palpitations or lower extremity swelling. Denies nausea, vomiting, diarrhea, abdominal pain. Patient was having frequent small amounts of urination at home. Otherwise no urinary complaints. No observable wounds. Preliminary blood cultures show gram-positive cocci in clusters. He is covered on pharmacy to dose vancomycin. Also, empirically started on cefepime. Most recent CBC from yesterday includes a WBC count of 17.4, hemoglobin 9.8, hematocrit 29.4, platelets 92. No overt signs of bleeding noted. INR 2.2 on arrival. Chronically anticoagulated on warfarin. BMP from yesterday includes: Sodium 136, potassium 3.5, chloride 101, serum bicarb 26, BUN 87, creatinine 4.79, glucose 213. Urinalysis not concerning for UTI. Lactic acid level was 2.6 down to 1.3. Troponins also elevated at 0.171, 0.203, and 0.26 respectively. Possibly supply/demand mismatch and in the setting of renal failure. Initial EKG showed A-fib RVR with a left bundle branch block, rate was noted at 157 bpm. Patient has had follow-up echocardiogram which estimated a moderately impaired left ventricular systolic function 40 to 45%, TAVR valve noted with mild to moderate perivalvular regurgitation. Patient is being monitored closely in intensive care unit. Review of Systems REVIEW OF SYSTEMS: CONSTITUTIONAL: Denies any recent significant weight loss or weight gain. EYES: Denies change in vision. EARS, NOSE, MOUTH, THROAT: Denies headaches, denies sore throat. CARDIOVASCULAR: Denies chest pain, palpitations or syncopal episodes. RESPIRATORY: See HPI. GASTROINTESTINAL: Denies change in appetite, abdominal pain, nausea and vomiting, or diarrhea GENITOURINARY: Denies hematuria, denies infections. MUSKULOSKELETAL: Denies pain, denies swelling. INTEGUMENTARY: Denies rash, denies eczema. NEUROLOGICAL: Denies recent memory loss, no recent seizure activity. PSYCHIATRIC: Denies anxiety, denies depression. HEMATOLOGIC/LYMPHATIC: Denies anemia, denies enlarged lymph node Past Medical History Past Medical History: Atrial Fibrillation, Atrial Flutter, Diabetes Mellitus, Dialysis, GERD/Reflux, Hyperlipidemia, Renal Disease, Sleep Apnea/CPAP/BIPAP Additional Past Medical History / Comment(s): MWF DIALYSIS, uses Bipap, dialysis graft in left arm, new onset esophageal issues, questional agent orange exposure History of Any Multi-Drug Resistant Organisms: None Reported Past Surgical History: Cardiac Valve Replacement, Heart Catheterization, Tonsil lectomy Additional Past Surgical History / Comment(s): Jul 17 2023 TAVR at [facility] Past Anesthesia/Blood Transfusion Reactions: No Reported Reaction Past Psychological History: No Psychological Hx Reported Smoking Status: Former smoker Past Alcohol Use History: Rare Additional Past Alcohol Use History / Comment(s): 1988 Past Drug Use History: None Reported - Past Family History Father Family Medical History: No Reported History Brother(s) Family Medical History: Diabetes Mellitus, Sleep Apnea/CPAP/BIPAP Additional Family Medical History / Comment(s): Parkinson's Dis. Medications and Allergies Home Medications Medication Instructions Recorded Confirmed Type Alogliptin Benzoate [Alogliptin] 6.25 mg PO HS 11/20/23 02/15/24 History Insulin Glargine,Hum.rec.anlog 45 units SQ HS 11/20/23 02/15/24 History [Lantus Solostar Pen] Multivitamins, Thera [Multivitamin 1 tab PO DAILY 11/20/23 02/15/24 History (formulary)] Hibernia-3/Dha/Epa/Fish Oil [Fish Oil 1,000 mg PO DAILY 11/20/23 02/15/24 History 1,000 mg Softgel] Tamsulosin HCl [Flomax] 0.4 mg PO HS 11/20/23 02/15/24 History Warfarin [Coumadin] 2.5 mg PO DIRECTED 11/20/23 02/15/24 History diphenhydrAMINE HCL [Benadryl] 25 mg PO HS 11/20/23 02/15/24 History Lovastatin [Mevacor] 10 mg PO HS 02/15/24 02/15/24 History Allergies Allergy/AdvReac Type Severity Reaction Status Date / Time No Known Allergies Allergy Verified 02/15/24 16:59 Physical Exam Vitals: Vital Signs Temp Pulse Pulse Resp BP BP Pulse Ox 02/16/24 23:00 99 22 107/64 96 02/16/24 22:57 98.9 F 99 20 112/59 02/16/24 22:45 99 20 112/59 100 02/16/24 22:30 110 H 18 96/58 100 02/16/24 22:15 98 19 111/95 99 02/16/24 22:00 105 H 15 100/65 99 02/16/24 21:45 97 18 83/68 100 02/16/24 21:30 93 19 95/63 99 02/16/24 21:15 87 24 92/58 100 02/16/24 21:00 93 19 88/64 99 02/16/24 20:55 02/16/24 20:45 84 18 103/60 100 02/16/24 20:30 84 24 88/66 99 02/16/24 20:15 81 17 76/59 99 02/16/24 20:00 100.3 F H 91 26 H 78/50 98 02/16/24 19:45 90 27 H 94/78 96 02/16/24 19:30 92 25 H 94/62 98 02/16/24 19:15 108 H 19 95/62 100 02/16/24 19:00 98 23 100/66 100 02/16/24 18:45 98 26 H 97/53 100 02/16/24 18:30 89 23 116/68 99 02/16/24 18:15 82 26 H 80/55 100 02/16/24 18:00 86 29 H 83/55 97 02/16/24 17:45 97 28 H 95/70 95 02/16/24 17:30 95 33 H 92/51 94 L 02/16/24 17:15 100.5 F H 111 H 26 H 111/50 93 L 02/16/24 16:26 157 H 28 H 186/105 75 L 02/16/24 16:16 02/16/24 15:31 02/16/24 13:55 98.3 F 102 H 18 150/69 100 02/16/24 12:01 02/16/24 08:23 02/16/24 08:19 100 02/16/24 08:00 97.4 F L 94 16 108/65 99 02/16/24 04:21 99 20 101/54 100 02/16/24 03:39 02/16/24 02:00 105 H 24 97/54 100 FiO2 02/16/24 23:00 02/16/24 22:57 02/16/24 22:45 02/16/24 22:30 02/16/24 22:15 02/16/24 22:00 02/16/24 21:45 02/16/24 21:30 02/16/24 21:15 02/16/24 21:00 02/16/24 20:55 30 02/16/24 20:45 02/16/24 20:30 02/16/24 20:15 02/16/24 20:00 40 02/16/24 19:45 02/16/24 19:30 02/16/24 19:15 02/16/24 19:00 40 02/16/24 18:45 02/16/24 18:30 02/16/24 18:15 02/16/24 18:00 40 02/16/24 17:45 02/16/24 17:30 02/16/24 17:15 40 02/16/24 16:26 02/16/24 16:16 30 02/16/24 15:31 40 02/16/24 13:55 02/16/24 12:01 30 02/16/24 08:23 30 02/16/24 08:19 40 02/16/24 08:00 02/16/24 04:21 02/16/24 03:39 40 02/16/24 02:00 Intake and Output 02/16/24 02/16/24 02/17/24 14:59 22:59 06:59 Intake Total 613.167 510 Output Total 200 1020 0 Balance -200 -406.833 510 Intake: IV 60 10 0.9 KVO 30 10 Intake, IV Titration 3.167 500 Amount Diltiazem 125 mg In 3.167 Sodium Chloride 0.9% 100 ml @ 5 MG/HR 5 mls/hr IV .Q24H [facility] Rx#:[id number] Vancomycin 1,750 mg In 500 Sodium Chloride 0.9% 500 ml 500 ml @ 167 mls/hr IVPB ONCE ONE Rx#: [id number] Hemodialysis 550 Output: Urine 200 70 0 Hemodialysis 950 Other: Voiding Method Indwelling Catheter # Bowel Movements 0 1 Weight 106 kg GENERAL EXAM: Alert, 78-year-old obese white male, comfortable in no apparent distress. HEAD: Normocephalic and atraumatic EYES: Normal reaction of pupils, equal size. NOSE: Clear with pink turbinates. THROAT: No erythema or exudates. NECK: No masses, no JVD. CHEST: No chest wall deformity. LUNGS: Equal air entry with no crackles, wheeze, rhonchi or dullness. On 2 L/min nasal cannula. SpO2 is 98%. No conversational dyspnea or accessory muscle use while at rest CVS: S1 and S2 normal with no audible murmur, irregular rhythm. No extra heart sounds ABDOMEN: Obese abdomen, no hepatosplenomegaly, active bowel sounds, no guarding or rigidity. SPINE: No scoliosis or deformity SKIN: No rashes CENTRAL NERVOUS SYSTEM: No focal deficits, tone is normal in all 4 extremities. EXTREMITIES: There is no peripheral edema, clubbing, or cyanosis. Peripheral pulses are intact. Results - Laboratory Findings CBC and BMP: 02/16/24 03:02 02/16/24 03:02 ABG ABG pH 7.39 (7.35-7.45) 02/16/24 16:36 ABG pCO2 42 mmHg (35-45) 02/16/24 16:36 ABG pO2 94 mmHg (83-108) 02/16/24 16:36 ABG O2 Saturation 98.0 % (94-97) H 02/16/24 16:36 PT/INR, D-dimer PT 18.9 sec (10.0-12.5) H 02/16/24 03:02 INR 1.9 (<1.2) H 02/16/24 03:02 Abnormal lab findings: Abnormal Labs 02/15/24 02/15/24 02/15/24 14:04 14:04 14:04 WBC 19.4 H RBC 3.59 L Hgb 11.3 L Hct 34.0 L RDW Plt Count 131 L Neutrophils # 18.2 H Neutrophils # (Manual) Lymphocytes # 0.3 L PT 21.7 H INR 2.2 H APTT 41.5 H ABG O2 Saturation Sodium Chloride 97 L BUN 76 H Creatinine 3.74 H Glucose 197 H POC Glucose (mg/dL) Hemoglobin A1c Plasma Lactic Acid Chaz Calcium Phosphorus 2.4 L Troponin I Total Protein Albumin Urine Protein Urine Glucose (UA) Urine Blood 02/15/24 02/15/24 02/15/24 14:04 14:04 17:14 WBC RBC Hgb Hct RDW Plt Count Neutrophils # Neutrophils # (Manual) Lymphocytes # PT INR APTT ABG O2 Saturation Sodium Chloride BUN Creatinine Glucose POC Glucose (mg/dL) Hemoglobin A1c Plasma Lactic Acid Chaz 2.6 H* Calcium Phosphorus Troponin I 0.171 H* Total Protein Albumin Urine Protein 3+ H Urine Glucose (UA) 2+ H Urine Blood Small H 02/15/24 02/15/24 02/15/24 17:36 20:43 21:08 WBC RBC Hgb Hct RDW Plt Count Neutrophils # Neutrophils # (Manual) Lymphocytes # PT INR APTT ABG O2 Saturation Sodium Chloride BUN Creatinine Glucose POC Glucose (mg/dL) 266 H Hemoglobin A1c Plasma Lactic Acid Chaz Calcium Phosphorus Troponin I 0.203 H* 0.276 H* Total Protein Albumin Urine Protein Urine Glucose (UA) Urine Blood 02/15/24 02/16/24 02/16/24 23:31 03:02 03:02 WBC RBC Hgb Hct RDW Plt Count Neutrophils # Neutrophils # (Manual) Lymphocytes # PT 18.9 H INR 1.9 H APTT 96.2 H ABG O2 Saturation Sodium Chloride BUN Creatinine Glucose POC Glucose (mg/dL) Hemoglobin A1c 8.8 H Plasma Lactic Acid Chaz Calcium Phosphorus Troponin I Total Protein Albumin Urine Protein Urine Glucose (UA) Urine Blood 02/16/24 02/16/24 02/16/24 03:02 03:02 08:40 WBC 17.4 H RBC 3.05 L Hgb 9.8 L D Hct 29.4 L RDW 15.6 H Plt Count 92 L Neutrophils # Neutrophils # (Manual) 16.00 H Lymphocytes # PT INR APTT ABG O2 Saturation Sodium 136 L Chloride BUN 87 H Creatinine 4.79 H Glucose 213 H POC Glucose (mg/dL) 301 H Hemoglobin A1c Plasma Lactic Acid Chaz Calcium 8.1 L Phosphorus Troponin I Total Protein 5.5 L Albumin 2.9 L Urine Protein Urine Glucose (UA) Urine Blood 02/16/24 02/16/24 02/16/24 12:03 16:34 16:36 WBC RBC Hgb Hct RDW Plt Count Neutrophils # Neutrophils # (Manual) Lymphocytes # PT INR APTT ABG O2 Saturation 98.0 H Sodium Chloride BUN Creatinine Glucose POC Glucose (mg/dL) 327 H 280 H Hemoglobin A1c Plasma Lactic Acid Chaz Calcium Phosphorus Troponin I Total Protein Albumin Urine Protein Urine Glucose (UA) Urine Blood 02/16/24 02/16/24 16:52 21:15 WBC RBC Hgb Hct RDW Plt Count Neutrophils # Neutrophils # (Manual) Lymphocytes # PT INR APTT ABG O2 Saturation Sodium Chloride BUN Creatinine Glucose POC Glucose (mg/dL) 247 H 131 H Hemoglobin A1c Plasma Lactic Acid Chaz Calcium Phosphorus Troponin I Total Protein Albumin Urine Protein Urine Glucose (UA) Urine Blood - Diagnostic Findings Chest x-ray: image reviewed Assessment and Plan Assessment: Acute hypoxemic respiratory failure, initially placed on BiPAP, currently on 2 L/min nasal cannula, likely secondary to a combination of fluid overload and acute systolic CHF exacerbation, however, superimposed community-acquired pneumonia is not entirely excluded. Follow-up chest x-ray shows worsening bilateral interstitial and patchy opacities mostly concerning for interstitial pulmonary edema. Negative for influenza, RSV, COVID. Patient has had a follow- up echocardiogram which estimates a moderately impaired left ventricular systolic function 40 to 45%, TAVR valve noted with mild to moderate perivalvular regurgitation. Mild mitral and tricuspid regurgitation also noted. End-stage renal disease, receiving hemodialysis on a Thursday, Thursday, Thursday schedule. Patient's outpatient hemodialysis treatment was terminated secondary to hemodynamic instability. Patient was transferred to [facility]. There were some issues utilizing the left upper extremity AV fistula. On 02/16/2024, he did undergo a left upper extremity fistulogram with ultrasound-guided access, percutaneous transluminal balloon angioplasty of the left subclavian vein, and thrombolysis at the proximal aspect of the graft. During the procedure he was laying flat, he developed some respiratory distress. Initially placed on BiPAP and transferred to the intensive care unit. Patient did receive stat hemodialysis earlier, and a total of 950 MLS was removed. Atrial fibrillation with rapid ventricular response, with improved rate control. Patient has been started on metoprolol 25 mg 3 times daily. Cardizem has been stopped. Already anticoagulated on warfarin. Bacteremia and sepsis, preliminary blood culture showing gram-positive cocci in clusters. Patient is covered on vancomycin. Hypotension and shock, likely secondary to a combination of above Acute febrile illness Altered mental status, possibly explained by acute metabolic encephalopathy and sepsis Acute leukocytosis Thrombocytopenia Anemia of chronic disease, secondary to end-stage renal disease Elevated troponins, suspect supply/demand mismatch and in the setting of end- stage renal disease History of TAVR History of hyperlipidemia Obesity, with a BMI of 33.5 kg/m Obstructive sleep apnea, with home BiPAP device Former tobacco smoker Plan: Patient's medications, labs, imaging reviewed Patient's respiratory status has improved statu/post stat hemodialysis treatment. A total of 950 mL were removed. Patient's BiPAP is on standby, currently on 2 L/min nasal cannula. SpO2 is 98%. Patient will utilize BiPAP with current settings at bedtime, he has baseline history of obstructive sleep apnea. may bring in own device. Patient currently covered on broad-spectrum antibiotics with vancomycin and cefepime. Preliminary blood cultures identified gram-positive cocci in clusters. Negative for influenza, RSV, COVID. Repeat chest x-ray in the morning Follow-up transthoracic echocardiogram was noted. Patient's A-fib RVR has more controlled ventricular rates. Beta-jake has bee n started. Cardizem is currently off. Warfarin has also been restarted. Continue low-dose norepinephrine for blood pressure support. Patient has also been started on as needed midodrine. He is being monitored by multiple other specialties including cardiology, nephrology, and infectious disease Overall prognosis is guarded secondary to above-mentioned comorbidities. He will continue to be monitored in the intensive care unit, and further recommendations are forthcoming I have personally seen and examined the patient, performed the documentation and the assessment and plan as written. Number of minutes spent on the visit:20 Time with Patient: Greater than 30
[2024-02-17 06:28] LABS: Basophils % (A) 0 %; Eosinophils % (A) 0 %; HCT 27.9 % (39.0-53.0); HGB 8.9 gm/dL (13.0-17.5); Lymphocytes # (A) 0.5 k/uL (1.0-4.8); Lymphocytes % (A) 5 %; MCH 31.6 pg (25.0-35.0); MCV 98.9 fL (80.0-100.0); Macrocytosis Slight; Mean Platelet Volume 10.6; Monocytes # (A) 0.3 k/uL (0-1.0); Monocytes % (A) 3 %; Neutrophils # (A) 9.5 k/uL (1.3-7.7); Neutrophils % (A) 91 %; RBC 2.82 m/uL (4.30-5.90); RDW 15.7 % (11.5-15.5); WBC 10.4 k/uL (3.8-10.6)
[2024-02-17 06:35] LABS: Platelet Count 91 k/uL (150-450)
[2024-02-17 06:45] LABS: Glucose,Whole Blood 193 mg/dL (70-110)
[2024-02-17] MEDS: MIDODRINE 5 MG TAB PO PRN (06:45)
[2024-02-17 06:51] LABS: INR 1.6 (<1.2); Prothrombin Time 16.3 sec (10.0-12.5)
[2024-02-17 07:10] LABS: African American GFR (CKD) 16 (>60 ml/min/1.73 sqM); Anion Gap 6 mmol/L; Blood Urea Nitrogen 55 mg/dL (9-20); Calcium 7.4 mg/dL (8.4-10.2); Carbon Dioxide 30 mmol/L (22-30); Chloride 98 mmol/L (98-107); Glucose 169 mg/dL (74-99); Non-African American GFR(CKD) 14 (>60 ml/min/1.73 sqM); Potassium 3.9 mmol/L (3.5-5.1); Sodium 134 mmol/L (137-145)
--- NOTE | 2024-02-17 07:26 | P.CONS ---
History of Present Illness - Reason for Consult Consult date: 02/16/24 Sepsis Requesting physician: Krystal Fofana - Chief Complaint Weakness and fall x few days - History of Present Illness Patient is a 78-year-old male with a past medical his significant for diabetes mellitus hypertension hyperlipidemia atrial fibrillation history of end-stage renal disease on dialysis through left arm fistula patient has been brought into the hospital yesterday afternoon apparently the patient was picking up frequently through the night to urinate and in the morning the patient rolled off the side of the bed was extremely weak and somewhat confused while the patient was taken to the [facility] where the patient was noticed to have fever elevated heart rate patient was discharged from the ER went to the dialysis however it was terminated after about an hour as the patient was noticed to have fever and tachycardia advised to complete the Melina Leisenring on presentation to the hospital he did have a fever of 104.1 F patient was tachycardic mildly hypertensive but not hypoxic and no need for supplemental oxygen patient did have a white count 19.4 with left shift BUN/creatinine has been elevated liver enzymes normal urine has been negative influenza RSV COVID testing negative stool for C. difficile was negative patient did have a positive blood culture with MSSA patient is currently on cefepime and vancomycin infec tious disease was consulted for further management of antibiotic therapy patient currently denies having any headache or URI symptoms no chest pain or shortness of breath no cough some nausea but no vomiting no abdominal pain complaining of mostly frequency of urine but no burning or difficulty urination denies having any pain or swelling to the left arm fistula site Review of Systems Positive point and negatives has been mentioned in the HPI, complete review of systems was performed and all other systems are negative Past Medical History Past Medical History: Atrial Fibrillation, Atrial Flutter, Diabetes Mellitus, Dialysis, Hyperlipidemia, Renal Disease, Sleep Apnea/CPAP/BIPAP Additional Past Medical History / Comment(s): MWF DIALYSIS , uses cpap ,dialysis graft in lft arm History of Any Multi-Drug Resistant Organisms: None Reported Past Surgical History: Cardiac Valve Replacement, Tonsillectomy Additional Past Surgical History / Comment(s): graft for dialysis Past Anesthesia/Blood Transfusion Reactions: No Reported Reaction Smoking Status: Former smoker - Past Family History Father Family Medical History: No Reported History Brother(s) Family Medical History: Diabetes Mellitus, Sleep Apnea/CPAP/BIPAP Additional Family Medical History / Comment(s): Parkinson's Dis. Mother Family Medical History: Dementia Medications and Allergies Home Medications Medication Instructions Recorded Confirmed Type Alogliptin Benzoate [Alogliptin] 6.25 mg PO HS 11/20/23 02/15/24 History Insulin Glargine,Hum.rec.anlog 45 units SQ HS 11/20/23 02/15/24 History [Lantus Solostar Pen] Multivitamins, Thera [Multivitamin 1 tab PO DAILY 11/20/23 02/15/24 History (formulary)] Mears-3/Dha/Epa/Fish Oil [Fish Oil 1,000 mg PO DAILY 11/20/23 02/15/24 History 1,000 mg Softgel] Tamsulosin HCl [Flomax] 0.4 mg PO HS 11/20/23 02/15/24 History Warfarin [Coumadin] 2.5 mg PO DIRECTED 11/20/23 02/15/24 History diphenhydrAMINE HCL [Benadryl] 25 mg PO HS 11/20/23 02/15/24 History Lovastatin [Mevacor] 10 mg PO HS 02/15/24 02/15/24 History Allergies Allergy/AdvReac Type Severity Reaction Status Date / Time No Known Allergies Allergy Verified 02/15/24 16:59 Physical Exam Vitals: Vital Signs Temp Pulse Pulse Resp BP BP Pulse Ox 02/16/24 12:01 02/16/24 08:23 02/16/24 08:19 100 02/16/24 08:00 97.4 F L 94 16 108/65 99 02/16/24 04:21 99 20 101/54 100 02/16/24 03:39 02/16/24 02:00 105 H 24 97/54 100 02/16/24 00:12 02/15/24 23:25 85/60 02/15/24 23:14 99.4 F 158 H 33 H 91/55 100 02/15/24 23:06 02/15/24 22:40 99 02/15/24 22:29 02/15/24 22:00 144 H 18 191/79 70 L 02/15/24 21:34 98.6 F 93 16 108/53 02/15/24 17:29 101.5 F H 147 H 26 H 97/48 84 L 02/15/24 13:48 104.1 F H 140 H 16 196/98 97 FiO2 02/16/24 12:01 30 02/16/24 08:23 30 02/16/24 08:19 40 02/16/24 08:00 02/16/24 04:21 02/16/24 03:39 40 02/16/24 02:00 02/16/24 00:12 40 02/15/24 23:25 02/15/24 23:14 02/15/24 23:06 50 02/15/24 22:40 02/15/24 22:29 60 02/15/24 22:00 02/15/24 21:34 02/15/24 17:29 02/15/24 13:48 Intake and Output 02/15/24 02/16/24 02/16/24 22:59 06:59 14:59 Intake Total 52.5 Balance 52.5 Intake: Intake, IV Titration 52.5 Amount Heparin Sod,Pork in 0.45% 52.5 NaCl 25,000 unit In 0.45 % NaCl 1 250ml.bag @ 9. 503 UNITS/KG/HR 10 mls/hr IV .Q24H [facility] Rx#: [id number] GENERAL DESCRIPTION: Elderly male lying in bed, no distress. No tachypnea or accessory muscle of respiration use. HEENT: Shows Pallor , no scleral icterus. Oral mucous membrane is dry. No p haryngeal erythema or thrush NECK: Trachea central, no thyromegaly. LUNGS: Unlabored breathing. Decreased breath sound at the base HEART: S1, S2, regular rate and rhythm. ABDOMEN: Soft, no tenderness , guarding or rigidity, no organomegaly EXTREMITIES: No edema of feet. SKIN: No rash, no masses palpable. No swelling or redness at the fistula site NEUROLOGICAL: The patient is awake, alert, mood and affect normal. Results CBC & Chem 7: 03/07/24 07:49 03/07/24 07:49 Labs: Abnormal Lab Results - Last 24 Hours (Table) 02/15/24 02/15/24 02/15/24 Range/Units 14:04 14:04 14:04 WBC 19.4 H (3.8-10.6) k/uL RBC 3.59 L (4.30-5.90) m/uL Hgb 11.3 L (13.0-17.5) gm/dL Hct 34.0 L (39.0-53.0) % RDW (11.5-15.5) % Plt Count 131 L (150-450) k/uL Neutrophils # 18.2 H (1.3-7.7) k/uL Neutrophils # (Manual) (1.3-7.7) k/uL Lymphocytes # 0.3 L (1.0-4.8) k/uL PT 21.7 H (10.0-12.5) sec INR 2.2 H (<1.2) APTT 41.5 H (22.0-30.0) sec Sodium (137-145) mmol/L Chloride 97 L (98-107) mmol/L BUN 76 H (9-20) mg/dL Creatinine 3.74 H (0.66-1.25) mg/dL Glucose 197 H (74-99) mg/dL POC Glucose (mg/dL) (70-110) mg/dL Hemoglobin A1c (<=6.0) % Plasma Lactic Acid Chaz (0.7-2.0) mmol/L Calcium (8.4-10.2) mg/dL Phosphorus 2.4 L (2.5-4.5) mg/dL Troponin I (0.000-0.034) ng/mL Total Protein (6.3-8.2) g/dL Albumin (3.5-5.0) g/dL Urine Protein (Negative) Urine Glucose (UA) (Negative) Urine Blood (Negative) 02/15/24 02/15/24 02/15/24 Range/Units 14:04 14:04 17:14 WBC (3.8-10.6) k/uL RBC (4.30-5.90) m/uL Hgb (13.0-17.5) gm/dL Hct (39.0-53.0) % RDW (11.5-15.5) % Plt Count (150-450) k/uL Neutrophils # (1.3-7.7) k/uL Neutrophils # (Manual) (1.3-7.7) k/uL Lymphocytes # (1.0-4.8) k/uL PT (10.0-12.5) sec INR (<1.2) APTT (22.0-30.0) sec Sodium (137-145) mmol/L Chloride (98-107) mmol/L BUN (9-20) mg/dL Creatinine (0.66-1.25) mg/dL Glucose (74-99) mg/dL POC Glucose (mg/dL) (70-110) mg/dL Hemoglobin A1c (<=6.0) % Plasma Lactic Acid Chaz 2.6 H* (0.7-2.0) mmol/L Calcium (8.4-10.2) mg/dL Phosphorus (2.5-4.5) mg/dL Troponin I 0.171 H* (0.000-0.034) ng/mL Total Protein (6.3-8.2) g/dL Albumin (3.5-5.0) g/dL Urine Protein 3+ H (Negative) Urine Glucose (UA) 2+ H (Negative) Urine Blood Small H (Negative) 02/15/24 02/15/24 02/15/24 Range/Units 17:36 20:43 21:08 WBC (3.8-10.6) k/uL RBC (4.30-5.90) m/uL Hgb (13.0-17.5) gm/dL Hct (39.0-53.0) % RDW (11.5-15.5) % Plt Count (150-450) k/uL Neutrophils # (1.3-7.7) k/uL Neutrophils # (Manual) (1.3-7.7) k/uL Lymphocytes # (1.0-4.8) k/uL PT (10.0-12.5) sec INR (<1.2) APTT (22.0-30.0) sec Sodium (137-145) mmol/L Chloride (98-107) mmol/L BUN (9-20) mg/dL Creatinine (0.66-1.25) mg/dL Glucose (74-99) mg/dL POC Glucose (mg/dL) 266 H (70-110) mg/dL Hemoglobin A1c (<=6.0) % Plasma Lactic Acid Chaz (0.7-2.0) mmol/L Calcium (8.4-10.2) mg/dL Phosphorus (2.5-4.5) mg/dL Troponin I 0.203 H* 0.276 H* (0.000-0.034) ng/mL Total Protein (6.3-8.2) g/dL Albumin (3.5-5.0) g/dL Urine Protein (Negative) Urine Glucose (UA) (Negative) Urine Blood (Negative) 02/15/24 02/16/24 02/16/24 Range/Units 23:31 03:02 03:02 WBC (3.8-10.6) k/uL RBC (4.30-5.90) m/uL Hgb (13.0-17.5) gm/dL Hct (39.0-53.0) % RDW (11.5-15.5) % Plt Count (150-450) k/uL Neutrophils # (1.3-7.7) k/uL Neutrophils # (Manual) (1.3-7.7) k/uL Lymphocytes # (1.0-4.8) k/uL PT 18.9 H (10.0-12.5) sec INR 1.9 H (<1.2) APTT 96.2 H (22.0-30.0) sec Sodium (137-145) mmol/L Chloride (98-107) mmol/L BUN (9-20) mg/dL Creatinine (0.66-1.25) mg/dL Glucose (74-99) mg/dL POC Glucose (mg/dL) (70-110) mg/dL Hemoglobin A1c 8.8 H (<=6.0) % Plasma Lactic Acid Chaz (0.7-2.0) mmol/L Calcium (8.4-10.2) mg/dL Phosphorus (2.5-4.5) mg/dL Troponin I (0.000-0.034) ng/mL Total Protein (6.3-8.2) g/dL Albumin (3.5-5.0) g/dL Urine Protein (Negative) Urine Glucose (UA) (Negative) Urine Blood (Negative) 02/16/24 02/16/24 02/16/24 Range/Units 03:02 03:02 08:40 WBC 17.4 H (3.8-10.6) k/uL RBC 3.05 L (4.30-5.90) m/uL Hgb 9.8 L D (13.0-17.5) gm/dL Hct 29.4 L (39.0-53.0) % RDW 15.6 H (11.5-15.5) % Plt Count 92 L (150-450) k/uL Neutrophils # (1.3-7.7) k/uL Neutrophils # (Manual) 16.00 H (1.3-7.7) k/uL Lymphocytes # (1.0-4.8) k/uL PT (10.0-12.5) sec INR (<1.2) APTT (22.0-30.0) sec Sodium 136 L (137-145) mmol/L Chloride (98-107) mmol/L BUN 87 H (9-20) mg/dL Creatinine 4.79 H (0.66-1.25) mg/dL Glucose 213 H (74-99) mg/dL POC Glucose (mg/dL) 301 H (70-110) mg/dL Hemoglobin A1c (<=6.0) % Plasma Lactic Acid Chaz (0.7-2.0) mmol/L Calcium 8.1 L (8.4-10.2) mg/dL Phosphorus (2.5-4.5) mg/dL Troponin I (0.000-0.034) ng/mL Total Protein 5.5 L (6.3-8.2) g/dL Albumin 2.9 L (3.5-5.0) g/dL Urine Protein (Negative) Urine Glucose (UA) (Negative) Urine Blood (Negative) 02/16/24 Range/Units 12:03 WBC (3.8-10.6) k/uL RBC (4.30-5.90) m/uL Hgb (13.0-17.5) gm/dL Hct (39.0-53.0) % RDW (11.5-15.5) % Plt Count (150-450) k/uL Neutrophils # (1.3-7.7) k/uL Neutrophils # (Manual) (1.3-7.7) k/uL Lymphocytes # (1.0-4.8) k/uL PT (10.0-12.5) sec INR (<1.2) APTT (22.0-30.0) sec Sodium (137-145) mmol/L Chloride (98-107) mmol/L BUN (9-20) mg/dL Creatinine (0.66-1.25) mg/dL Glucose (74-99) mg/dL POC Glucose (mg/dL) 327 H (70-110) mg/dL Hemoglobin A1c (<=6.0) % Plasma Lactic Acid Chaz (0.7-2.0) mmol/L Calcium (8.4-10.2) mg/dL Phosphorus (2.5-4.5) mg/dL Troponin I (0.000-0.034) ng/mL Total Protein (6.3-8.2) g/dL Albumin (3.5-5.0) g/dL Urine Protein (Negative) Urine Glucose (UA) (Negative) Urine Blood (Negative) Microbiology - Last 24 Hours (Table) 02/15/24 18:06 Blood Culture Gram Stain - Preliminary Blood Blood Culture - Preliminary Molecular ID 02/15/24 17:56 Blood Culture Gram Stain - Preliminary Blood Assessment and Plan (1) MSSA bacteremia Status: Acute Code(s): R78.81 - BACTEREMIA; B95.61 - METHICILLIN SUSCEP STAPH INFCT CAUSING DIS CLASSD [id number] SNOMED Code(s): 421847216 Plan: 1patient with MSSA bacteremia in this patient who do have a history of renal failure with on hemodialysis with a left arm fistula site with presentation to the hospital with weakness fall and urinary frequency however UA is negative a bdominal soft no significant respiratory symptoms or hypoxemia question of possible related to the fistula site. 2blood cultures will be repeated to document clearance of his bacteremia 3-discontinue vancomycin and cefepime 4-start the patient on cefazolin We will follow on clinical condition and cultures to further adjust medication if needed Thank you for this consultation we will follow the patient along with you Dictation was produced using Q Interactive dictation software. please excuse any gramm atical, word or spelling errors. Time with Patient: Greater than 30
--- NOTE | 2024-02-17 08:18 | XR ---
EXAMINATION TYPE: XR chest 1V DATE OF EXAM: 02/17/2024 5:50 AM CLINICAL INDICATION:Male, 78 years old with history of CHF; COMPARISON: Chest radiographs from 1423 TECHNIQUE: XR chest 1V Frontal view of the chest. FINDINGS: Lungs/Pleura: There is no evidence of pleural effusion, focal consolidation, or pneumothorax. Pulmonary vascularity: Pulmonary vascular congestion. Heart/mediastinum: Cardiomediastinal silhouette is enlarged and stable. Musculoskeletal: No acute osseous pathology. IMPRESSION: Cardiomegaly and mild pulmonary vascular congestion. Correlate with BNP for congestive heart failure.
[2024-02-17] MEDS: PANTOPRAZOLE 40 MG/10 ML VIAL IV SCH (08:38)
[2024-02-17] MEDS: FUROSEMIDE 10 MG/ML 4 ML VIAL IV SCH (08:38)
--- NOTE | 2024-02-17 09:44 | PN ---
PROGRESS NOTE Mr. Huntley is a gentleman with end-stage renal disease, on hemodialysis. He has developed new onset atrial fibrillation. He was in sinus rhythm for a short while this morning, but is back in atrial fibrillation with a bundle-branch block. His hemoglobin has dropped more than 2 g. We will hold Coumadin for now. I will increase the metoprolol to 25 mg t.i.d. He has also possibly Staphylococcus aureus sepsis, is on antibiotics. Overall prognosis is guarded. Plan is to continue rate control with beta- jake and hold Coumadin mainly because of his drop in hemoglobin. This gentleman has history of paroxysmal atrial fibrillation, diabetes, end-stage renal disease and has been on Coumadin as an outpatient. His rate is reasonably well controlled. I will increase the metoprolol tartrate, hold Coumadin for now, and his sepsis is being addressed with antibiotics. His ventricular rate is in the range of 80 to 100. Overall, this is an acceptable rate. I will continue the current medical regimen, and once his hemoglobin stabilizes, we can resume anticoagulation. Blood pressure is reasonably acceptable at this time. Prognosis remains guarded. MMODL / IJN: [id number] /
--- NOTE | 2024-02-17 10:03 | P.PN ---
Subjective Progress Note Date: 02/17/24 Principal diagnosis: Malfunctioning AV graft Patient is seen and examined today as a follow-up in the ICU. Yesterday he underwent left upper extremity fistulogram with percutaneous transluminal balloon angioplasty of the left subclavian vein and initiation of thrombolysis at the proximal aspect of the graft. Yesterday evening he underwent dialysis. Awaiting recommendations from nephrology if he will have repeat dialysis today. Dressing clean dry and intact. Objective - Vital Signs Vital signs: Vital Signs Temp 99.3 F 02/17/24 04:00 Pulse 76 02/17/24 07:00 Resp 18 02/17/24 07:00 BP 111/60 02/17/24 07:00 Pulse Ox 86 L 02/17/24 07:00 FiO2 30 02/17/24 04:15 Intake & Output 02/16/24 02/17/24 02/17/24 18:59 06:59 18:59 Intake Total 33.167 1844.976 Output Total 200 1070 Balance -166.833 774.976 Weight 106 kg 104.1 kg Intake: IV 30 660 0.9 KVO 110 Vancomycin 1,750 mg In 500 Sodium Chloride 0.9% 500 ml 500 ml @ 167 mls/hr IVPB ONCE ONE Rx#: [id number] ceFAZolin 2 gm In Sodium 50 Chloride 0.9% 50 ml @ 100 mls/hr IVPB Q12H [facility] Rx# :[id number] Intake, IV Titration 3.167 559.976 Amount Diltiazem 125 mg In 3.167 Sodium Chloride 0.9% 100 ml @ 5 MG/HR 5 mls/hr IV .Q24H [facility] Rx#:[id number] Norepinephrine 4 mg In 59.976 Sodium Chloride 0.9% 250 ml @ 0.03 MCG/KG/MIN 12. 116 mls/hr IV .[id number] [facility] Rx#:[id number] Vancomycin 1,750 mg In 500 Sodium Chloride 0.9% 500 ml 500 ml @ 167 mls/hr IVPB ONCE ONE Rx#: [id number] Oral 75 Hemodialysis 550 Output: Urine 200 120 Hemodialysis 950 Other: Voiding Method Indwelling Catheter Indwelling Catheter # Bowel Movements 0 1 - Exam General appearance: The patient is alert, oriented, appears in no acute distress. HET: Head is normocephalic and atraumatic. Pupils are equal and reactive. Neck: Supple. Heart: Regular. Lungs: Equal expansion, normal respiratory effort. Abdomen: Soft, nondistended. Extremities: Normal skin color and turgor. Left upper extremity AV graft with dressing in place, palpable thrill. Neurological: No focal deficits. Strength and sensation are grossly intact. - Labs CBC & Chem 7: 02/17/24 05:57 02/17/24 05:57 Labs: Abnormal Lab Results - Last 24 Hours (Table) 02/16/24 02/16/24 02/16/24 Range/Units 03:02 08:40 12:03 RBC (4.30-5.90) m/uL Hgb (13.0-17.5) gm/dL Hct (39.0-53.0) % RDW (11.5-15.5) % Plt Count (150-450) k/uL Neutrophils # (1.3-7.7) k/uL Lymphocytes # (1.0-4.8) k/uL PT (10.0-12.5) sec INR (<1.2) ABG O2 Saturation (94-97) % Sodium (137-145) mmol/L BUN (9-20) mg/dL Creatinine (0.66-1.25) mg/dL Glucose (74-99) mg/dL POC Glucose (mg/dL) 301 H 327 H (70-110) mg/dL Hemoglobin A1c 8.8 H (<=6.0) % Calcium (8.4-10.2) mg/dL 02/16/24 02/16/24 02/16/24 Range/Units 16:34 16:36 16:52 RBC (4.30-5.90) m/uL Hgb (13.0-17.5) gm/dL Hct (39.0-53.0) % RDW (11.5-15.5) % Plt Count (150-450) k/uL Neutrophils # (1.3-7.7) k/uL Lymphocytes # (1.0-4.8) k/uL PT (10.0-12.5) sec INR (<1.2) ABG O2 Saturation 98.0 H (94-97) % Sodium (137-145) mmol/L BUN (9-20) mg/dL Creatinine (0.66-1.25) mg/dL Glucose (74-99) mg/dL POC Glucose (mg/dL) 280 H 247 H (70-110) mg/dL Hemoglobin A1c (<=6.0) % Calcium (8.4-10.2) mg/dL 02/16/24 02/17/24 02/17/24 Range/Units 21:15 05:57 05:57 RBC 2.82 L (4.30-5.90) m/uL Hgb 8.9 L (13.0-17.5) gm/dL Hct 27.9 L (39.0-53.0) % RDW 15.7 H (11.5-15.5) % Plt Count 91 L (150-450) k/uL Neutrophils # 9.5 H (1.3-7.7) k/uL Lymphocytes # 0.5 L (1.0-4.8) k/uL PT 16.3 H (10.0-12.5) sec INR 1.6 H (<1.2) ABG O2 Saturation (94-97) % Sodium (137-145) mmol/L BUN (9-20) mg/dL Creatinine (0.66-1.25) mg/dL Glucose (74-99) mg/dL POC Glucose (mg/dL) 131 H (70-110) mg/dL Hemoglobin A1c (<=6.0) % Calcium (8.4-10.2) mg/dL 02/17/24 02/17/24 Range/Units 05:57 06:44 RBC (4.30-5.90) m/uL Hgb (13.0-17.5) gm/dL Hct (39.0-53.0) % RDW (11.5-15.5) % Plt Count (150-450) k/uL Neutrophils # (1.3-7.7) k/uL Lymphocytes # (1.0-4.8) k/uL PT (10.0-12.5) sec INR (<1.2) ABG O2 Saturation (94-97) % Sodium 134 L (137-145) mmol/L BUN 55 H (9-20) mg/dL Creatinine 3.87 H (0.66-1.25) mg/dL Glucose 169 H (74-99) mg/dL POC Glucose (mg/dL) 193 H (70-110) mg/dL Hemoglobin A1c (<=6.0) % Calcium 7.4 L (8.4-10.2) mg/dL Microbiology - Last 24 Hours (Table) 02/15/24 18:06 Blood Culture Gram Stain - Preliminary Blood Blood Culture - Preliminary Molecular ID 02/15/24 17:56 Blood Culture Gram Stain - Preliminary Blood Assessment and Plan Assessment: 1. End-stage renal disease requiring hemodialysis 2. Malfunctioning left upper extremity AV graft status post fistulogram with angioplasty of left subclavian vein and initiation of thrombolysis at the proximal aspect of graft 3. Bacteremia 4. Atrial fibrillation with RVR 5. History of coronary artery disease 6. Diabetes mellitus 7. Obstructive sleep apnea with BiPAP Plan: 1. Diet as tolerated 2. Hemodialysis per recommendations from nephrology 3. May resume anticoagulation at the discretion of cardiology and primary medical team 4. Rest of medical management per primary medical team 5. Recommend outpatient follow-up with patient's vascular surgeon at [facility] in [place] Thank you for this consultation, we will sign off at this time. The impression and plan of care has been dictated as directed. I performed a history and examination of this patient, discussed the same with the dictator. I agree with the dictator's note ,documented as a scribe. Any additional findings or plans will be noted.
[2024-02-17 11:19] LABS: Glucose,Whole Blood 199 mg/dL (70-110)
--- NOTE | 2024-02-17 11:26 | P.PN ---
Subjective Progress Note Date: 02/17/24 Patient is a 78-year-old male with with known diabetes, atrial fibrillation anticoagulated with Coumadin, prior aortic valve replacement, dyslipidemia, end- stage renal disease on hemodialysis Thursday/Thursday/Thursday, and BPH who presented to the emergency department due to confusion and weakness. He had previously been to [facility] where he was noted to have a fever and elevated heart rate he was then discharged from the emergency department. When he went to go to dialysis they terminated after 1 hour due to a fever. On arrival to the emergency department he was noted to be febrile to 104.1 with a heart rate of 140. Initial laboratory analysis was remarkable for white blood cell count 19.4, platelets 131, lactic acid 2.6, troponin 0.12, and renal function consistent with his known dialysis. Influenza A/B/RSV/COVID-19 testing was negative. Initial chest x-ray demonstrated pulmonary vascular congestion. Patient was admitted for sepsis of unknown etiology and A-fib with RVR. He was to started on vancomycin and cefepime as well as a Cardizem drip. Critical care and cardiology were consulted. Echocardiogram was performed which demonstrated ejection fraction of 40 to 45% with mild to moderate perivalvular leak of his aortic valve replacement. Vascular surgery was consulted as his dialysis access is not working. And on 02/15 he underwent left upper extremity fistulogram with transluminal ballooning and thrombolysis at proximal aspect of graft. He then underwent hemodialysis and became slightly hypotensive requiring initiation of norepinephrine. He was subsequently transferred to the ICU. He had 3 bowel movements overnight on 02/15. Patient seen and examined at bedside. He states he is feeling well today. He denies any chest pain, shortness of breath, nausea, vomiting, or diarrhea. No other complaints at this time. Per nursing he had 3 dark bowel movements since yesterday around dinnertime. Vital signs reviewed General: [nontoxic], [no distress], [appears at stated age] Cardiovascular: [S1S2 reg], [no murmur] Lungs: [CTA bilateral], [no rhonchi, no rales] , [no accessory muscle use] Abdominal: [soft], [ nontender to palpation], [no guarding] Ext: [no gross muscle atrophy], [no edema b/l lower extremities], [no contractures] Neuro: [ CN II-XI grossly intact], [no focal neuro deficits] Psych: [Alert], [oriented], [appropriate affect] Assessment/Plan: MSSA bacteremia with sepsis -Likely related to dialysis access -Infectious disease note reviewed: Discontinue Vanco and cefepime, started on cefazolin as patient has MSSA bacteremia -Cefazolin 2 g IV piggyback every 12 hours day #2 - await repeat blood cultures End-stage renal disease on hemodialysis Thursday/Thursday/Thursday Malfunction AV graft- s/p angioplasty/thrombolysis of left subclavian vein - nephrology note reviewed from 02/16/2024: Continue with hemodialysis and IV antibiotics await blood cultures add Aranesp - Vascular note reviewed: HD as toleated, follow-up with vascular [facility] at [facility] Melena, possible lower GI bleed. Normocytic anemia, probable acute blood loss with chronic renal disease - Serial hemoglobin - Hold Coumadin today - await GI consult - no indication for transfusion Acute exacerbation of systolic congestive heart failure with ejection fraction 40 to 45% Atrial fibrillation with rapid ventricular response anticoagulated with coumadin Type II non-STEMI Dyslipidemia - cardio note reviewed: hold Coumadin, continue with heparin gtt. -Lipitor 10 mg at night -Metoprolol 25 mg oral 3 times daily -Now off of Levophed -Follow blood pressure and heart rate closely -Patient typically takes Coumadin but this is being held due to possible GI bleed. Thrombocytopenia - unkown if acute of chronic - continue to follow CBC - no indication for transfusion Diabetes mellitus type 2 -At home patient takes Lantus 45 units at night and Alogliptin -A1c 8.8 - SSI, follow BS - Levemir 20 units this evening BPH Imaging: Chest x-ray is reviewed by myself shows increased pulmonary vascular congestion Data Review: Labs reviewed from today include CBC, coags, and BMP which are remarkable for hemoglobin 8.9, platelets 91, INR 1.6, sodium 134, BUN 55, creatinine 3.87. C. difficile negative. Fecal occult blood positive. DVT prophylaxis: SCD Anticipated discharge date: Pending clinical course Anticipated discharge place: Pending clinical course This dictation was prepared using [employer] voice recognition software. Though every attempt is made to correct errors during dictation some may still exist. Objective - Vital Signs Vital signs: Vital Signs Temp 99.3 F 02/17/24 04:00 Pulse 76 02/17/24 07:00 Resp 18 02/17/24 07:00 BP 111/60 02/17/24 07:00 Pulse Ox 86 L 02/17/24 07:00 FiO2 30 02/17/24 04:15 Intake & Output 02/16/24 02/17/24 02/17/24 18:59 06:59 18:59 Intake Total 33.167 1844.976 Output Total 200 1070 Balance -166.833 774.976 Weight 106 kg 104.1 kg Intake: IV 30 660 0.9 KVO 110 Vancomycin 1,750 mg In 500 Sodium Chloride 0.9% 500 ml 500 ml @ 167 mls/hr IVPB ONCE ONE Rx#: [id number] ceFAZolin 2 gm In Sodium 50 Chloride 0.9% 50 ml @ 100 mls/hr IVPB Q12H [facility] Rx# :[id number] Intake, IV Titration 3.167 559.976 Amount Diltiazem 125 mg In 3.167 Sodium Chloride 0.9% 100 ml @ 5 MG/HR 5 mls/hr IV .Q24H [facility] Rx#:[id number] Norepinephrine 4 mg In 59.976 Sodium Chloride 0.9% 250 ml @ 0.03 MCG/KG/MIN 12. 116 mls/hr IV .[id number] [facility] Rx#:[id number] Vancomycin 1,750 mg In 500 Sodium Chloride 0.9% 500 ml 500 ml @ 167 mls/hr IVPB ONCE ONE Rx#: [id number] Oral 75 Hemodialysis 550 Output: Urine 200 120 Hemodialysis 950 Other: Voiding Method Indwelling Catheter Indwelling Catheter # Bowel Movements 0 1 - Labs CBC & Chem 7: 02/17/24 05:57 02/17/24 05:57 Labs: Abnormal Lab Results - Last 24 Hours (Table) 02/16/24 02/16/24 02/16/24 Range/Units 03:02 08:40 12:03 RBC (4.30-5.90) m/uL Hgb (13.0-17.5) gm/dL Hct (39.0-53.0) % RDW (11.5-15.5) % Plt Count (150-450) k/uL Neutrophils # (1.3-7.7) k/uL Lymphocytes # (1.0-4.8) k/uL PT (10.0-12.5) sec INR (<1.2) ABG O2 Saturation (94-97) % Sodium (137-145) mmol/L BUN (9-20) mg/dL Creatinine (0.66-1.25) mg/dL Glucose (74-99) mg/dL POC Glucose (mg/dL) 301 H 327 H (70-110) mg/dL Hemoglobin A1c 8.8 H (<=6.0) % Calcium (8.4-10.2) mg/dL 02/16/24 02/16/24 02/16/24 Range/Units 16:34 16:36 16:52 RBC (4.30-5.90) m/uL Hgb (13.0-17.5) gm/dL Hct (39.0-53.0) % RDW (11.5-15.5) % Plt Count (150-450) k/uL Neutrophils # (1.3-7.7) k/uL Lymphocytes # (1.0-4.8) k/uL PT (10.0-12.5) sec INR (<1.2) ABG O2 Saturation 98.0 H (94-97) % Sodium (137-145) mmol/L BUN (9-20) mg/dL Creatinine (0.66-1.25) mg/dL Glucose (74-99) mg/dL POC Glucose (mg/dL) 280 H 247 H (70-110) mg/dL Hemoglobin A1c (<=6.0) % Calcium (8.4-10.2) mg/dL 02/16/24 02/17/24 02/17/24 Range/Units 21:15 05:57 05:57 RBC 2.82 L (4.30-5.90) m/uL Hgb 8.9 L (13.0-17.5) gm/dL Hct 27.9 L (39.0-53.0) % RDW 15.7 H (11.5-15.5) % Plt Count 91 L (150-450) k/uL Neutrophils # 9.5 H (1.3-7.7) k/uL Lymphocytes # 0.5 L (1.0-4.8) k/uL PT 16.3 H (10.0-12.5) sec INR 1.6 H (<1.2) ABG O2 Saturation (94-97) % Sodium (137-145) mmol/L BUN (9-20) mg/dL Creatinine (0.66-1.25) mg/dL Glucose (74-99) mg/dL POC Glucose (mg/dL) 131 H (70-110) mg/dL Hemoglobin A1c (<=6.0) % Calcium (8.4-10.2) mg/dL 02/17/24 02/17/24 Range/Units 05:57 06:44 RBC (4.30-5.90) m/uL Hgb (13.0-17.5) gm/dL Hct (39.0-53.0) % RDW (11.5-15.5) % Plt Count (150-450) k/uL Neutrophils # (1.3-7.7) k/uL Lymphocytes # (1.0-4.8) k/uL PT (10.0-12.5) sec INR (<1.2) ABG O2 Saturation (94-97) % Sodium 134 L (137-145) mmol/L BUN 55 H (9-20) mg/dL Creatinine 3.87 H (0.66-1.25) mg/dL Glucose 169 H (74-99) mg/dL POC Glucose (mg/dL) 193 H (70-110) mg/dL Hemoglobin A1c (<=6.0) % Calcium 7.4 L (8.4-10.2) mg/dL Microbiology - Last 24 Hours (Table) 02/15/24 18:06 Blood Culture Gram Stain - Preliminary Blood Blood Culture - Preliminary Molecular ID 02/15/24 17:56 Blood Culture Gram Stain - Preliminary Blood
--- NOTE | 2024-02-17 14:22 | P.CONS ---
History of Present Illness - Reason for Consult Consult date: 02/17/24 Anemia, rule out GI bleed Requesting physician: Vianey Cramer - Chief Complaint Sepsis - History of Present Illness 78-year-old male with multiple comorbidities including disease atrial fibrillation and warfarin, end-stage renal disease on hemodialysis, diabetes mellitus, hyperlipidemia, sleep apnea and BiPAP, and cardiac valve replacement was a transfer from [facility] for atrial fibrillation with RVR. Patient was admitted here he was also noted to have a max temp of 104 on admission. Blood cultures were received and patient preliminary Staph aureus. He had been started on IV Cardizem as well as heparin drip. Yesterday heparin drip was discontinued. He underwent fistulogram to evaluate his left AV graft for dialysis. During that time he was noted to have increased respiratory distress and was transferred to the ICU. Patient is currently lying in bed in the ICU. He is ill-appearing. He was noted to have a drop in hemoglobin from 11-8.9 duri ng this admission. A stool occult blood test was obtained and was positive. Gastroenterology was consulted to evaluate for possible GI bleed. Anticoagulation is currently on hold. Patient usually takes warfarin for his atrial fibrillation. He denies any blood in his stool or black stool. Nursing reports that his stool was dark brown. He denies abdominal pain, nausea or vomiting. He recently had a colonoscopy for a positive occult blood done 11/24/[address] Diaz with a normal-appearing colon however right colon was not evaluated due to tortuosity. Patient was recommended to have barium enema however did not complete that. Review of Systems REVIEW OF SYSTEMS: CARDIOPULMONARY: No chest pain, shortness of breath. Gastrointestinal: No abdominal pain. No nausea or vomiting. No hematemesis, coffee-ground emesis. No rectal bleeding, or melena. GENITOURINARY: No dysuria or hematuria. MUSCULOSKELETAL: Reports normal range of motion. SKIN: No rashes. No jaundice. ENDOCRINE: No chills, fevers. No excessive weight gain or loss. No polydipsia or polyuria. End-stage renal disease on hemodialysis PSYCHIATRIC: Unremarkable. NEUROLOGY: No change in mental status. Denies dizziness, headache. ENT: Vision unremarkable. CONSTITUTIONAL: No recent weight loss. Fevers, chills. Past Medical History Past Medical History: Atrial Fibrillation, Atrial Flutter, Diabetes Mellitus, Dialysis, Hyperlipidemia, Renal Disease, Sleep Apnea/CPAP/BIPAP Additional Past Medical History / Comment(s): MWF DIALYSIS , uses cpap ,dialysis graft in lft arm History of Any Multi-Drug Resistant Organisms: None Reported Past Surgical History: Cardiac Valve Replacement, Tonsillectomy Additional Past Surgical History / Comment(s): graft for dialysis Past Anesthesia/Blood Transfusion Reactions: No Reported Reaction Smoking Status: Former smoker - Past Family History Father Family Medical History: No Reported History Brother(s) Family Medical History: Diabetes Mellitus, Sleep Apnea/CPAP/BIPAP Additional Family Medical History / Comment(s): Parkinson's Dis. Medications and Allergies Home Medications Medication Instructions Recorded Confirmed Type Alogliptin Benzoate [Alogliptin] 6.25 mg PO HS 11/20/23 02/15/24 History Insulin Glargine,Hum.rec.anlog 45 units SQ HS 11/20/23 02/15/24 History [Lantus Solostar Pen] Multivitamins, Thera [Multivitamin 1 tab PO DAILY 11/20/23 02/15/24 History (formulary)] [place]-3/Dha/Epa/Fish Oil [Fish Oil 1,000 mg PO DAILY 11/20/23 02/15/24 History 1,000 mg Softgel] Tamsulosin HCl [Flomax] 0.4 mg PO HS 11/20/23 02/15/24 History Warfarin [Coumadin] 2.5 mg PO DIRECTED 11/20/23 02/15/24 History diphenhydrAMINE HCL [Benadryl] 25 mg PO HS 11/20/23 02/15/24 History Lovastatin [Mevacor] 10 mg PO HS 02/15/24 02/15/24 History Allergies Allergy/AdvReac Type Severity Reaction Status Date / Time No Known Allergies Allergy Verified 02/15/24 16:59 Physical Exam Vitals: Vital Signs Temp Pulse Pulse Resp BP BP Pulse Ox 02/17/24 09:00 105 H 13 106/63 95 02/17/24 08:00 98.6 F 90 16 113/66 96 02/17/24 07:00 76 18 111/60 86 L 02/17/24 06:45 75 14 108/58 98 02/17/24 06:30 75 14 108/58 98 02/17/24 06:15 75 16 99/58 99 02/17/24 06:00 75 17 105/56 98 02/17/24 05:45 75 20 108/58 98 02/17/24 05:30 75 7 L 102/54 99 02/17/24 05:15 75 19 109/58 98 02/17/24 05:00 75 12 101/55 99 02/17/24 04:45 75 13 103/55 98 02/17/24 04:30 75 20 104/56 98 02/17/24 04:15 75 19 108/54 98 02/17/24 04:00 99.3 F 75 20 104/55 98 02/17/24 03:45 75 20 112/58 96 02/17/24 03:30 75 22 110/55 98 02/17/24 03:15 74 19 110/53 97 02/17/24 03:00 74 19 94/53 95 02/17/24 02:45 74 19 111/61 96 02/17/24 02:30 73 16 117/60 98 02/17/24 02:15 96 17 100/54 98 02/17/24 02:00 73 20 105/51 99 02/17/24 01:45 80 19 93/51 99 02/17/24 01:30 73 17 94/52 98 02/17/24 01:15 73 21 98/50 97 02/17/24 01:00 74 21 92/52 97 02/17/24 00:49 74 19 103/67 96 02/17/24 00:45 73 19 103/67 98 02/17/24 00:30 82 23 83/48 99 02/17/24 00:23 02/17/24 00:15 75 19 87/49 99 02/17/24 00:00 98.9 F 84 20 90/59 100 02/16/24 23:45 96 18 99/60 100 02/16/24 23:30 102 H 20 100/71 95 02/16/24 23:15 98 21 91/59 96 02/16/24 23:00 99 22 107/64 96 02/16/24 22:57 98.9 F 99 20 112/59 02/16/24 22:45 99 20 112/59 100 02/16/24 22:30 110 H 18 96/58 100 02/16/24 22:15 98 19 111/95 99 02/16/24 22:00 105 H 15 100/65 99 02/16/24 21:45 97 18 83/68 100 02/16/24 21:30 93 19 95/63 99 02/16/24 21:15 87 24 92/58 100 02/16/24 21:00 93 19 88/64 99 02/16/24 20:55 02/16/24 20:45 84 18 103/60 100 02/16/24 20:30 84 24 88/66 99 02/16/24 20:15 81 17 76/59 99 02/16/24 20:00 100.3 F H 91 26 H 78/50 98 02/16/24 19:45 90 27 H 94/78 96 02/16/24 19:30 92 25 H 94/62 98 02/16/24 19:15 108 H 19 95/62 100 02/16/24 19:00 98 23 100/66 100 02/16/24 18:45 98 26 H 97/53 100 02/16/24 18:30 89 23 116/68 99 02/16/24 18:15 82 26 H 80/55 100 02/16/24 18:00 86 29 H 83/55 97 02/16/24 17:45 97 28 H 95/70 95 02/16/24 17:30 95 33 H 92/51 94 L 02/16/24 17:15 100.5 F H 111 H 26 H 111/50 93 L 02/16/24 16:26 157 H 28 H 186/105 75 L 02/16/24 16:16 02/16/24 15:31 02/16/24 13:55 98.3 F 102 H 18 150/69 100 02/16/24 12:01 FiO2 02/17/24 09:00 02/17/24 08:00 02/17/24 07:00 02/17/24 06:45 02/17/24 06:30 02/17/24 06:15 02/17/24 06:00 02/17/24 05:45 02/17/24 05:30 02/17/24 05:15 02/17/24 05:00 02/17/24 04:45 02/17/24 04:30 02/17/24 04:15 30 02/17/24 04:00 40 02/17/24 03:45 02/17/24 03:30 02/17/24 03:15 02/17/24 03:00 02/17/24 02:45 02/17/24 02:30 02/17/24 02:15 02/17/24 02:00 02/17/24 01:45 02/17/24 01:30 02/17/24 01:15 02/17/24 01:00 02/17/24 00:49 02/17/24 00:45 02/17/24 00:30 02/17/24 00:23 30 02/17/24 00:15 02/17/24 00:00 40 02/16/24 23:45 02/16/24 23:30 02/16/24 23:15 02/16/24 23:00 02/16/24 22:57 02/16/24 22:45 02/16/24 22:30 02/16/24 22:15 02/16/24 22:00 02/16/24 21:45 02/16/24 21:30 02/16/24 21:15 02/16/24 21:00 02/16/24 20:55 30 02/16/24 20:45 02/16/24 20:30 02/16/24 20:15 02/16/24 20:00 40 02/16/24 19:45 02/16/24 19:30 02/16/24 19:15 02/16/24 19:00 40 02/16/24 18:45 02/16/24 18:30 02/16/24 18:15 02/16/24 18:00 40 02/16/24 17:45 02/16/24 17:30 02/16/24 17:15 40 02/16/24 16:26 02/16/24 16:16 30 02/16/24 15:31 40 02/16/24 13:55 02/16/24 12:01 30 Intake and Output 02/16/24 02/17/24 02/17/24 22:59 06:59 14:59 Intake Total 752.718 4868.321 20 Output Total 1020 50 20 Balance -250.545 4804.321 0 Intake: IV 60 630 20 0.9 KVO 30 80 20 Vancomycin 1,750 mg In 500 Sodium Chloride 0.9% 500 ml 500 ml @ 167 mls/hr IVPB ONCE ONE Rx#: [id number] ceFAZolin 2 gm In Sodium 50 Chloride 0.9% 50 ml @ 100 mls/hr IVPB Q12H [facility] Rx# :[id number] Intake, IV Titration 29.822 533.321 Amount Diltiazem 125 mg In 3.167 Sodium Chloride 0.9% 100 ml @ 5 MG/HR 5 mls/hr IV .Q24H [facility] Rx#:[id number] Norepinephrine 4 mg In 26.655 33.321 Sodium Chloride 0.9% 250 ml @ 0.03 MCG/KG/MIN 12. 116 mls/hr IV .[id number] [facility] Rx#:[id number] Vancomycin 1,750 mg In 500 Sodium Chloride 0.9% 500 ml 500 ml @ 167 mls/hr IVPB ONCE ONE Rx#: [id number] Oral 75 Hemodialysis 550 Output: Urine 70 50 20 Hemodialysis 950 Other: Voiding Method Indwelling Catheter Indwelling Catheter Indwelling Catheter # Bowel Movements 1 1 Weight 106 kg 104.1 kg General appearance: The patient is alert, oriented, appears in no acute distress. HET: Head is normocephalic and atraumatic. Conjunctiva pink. Sclera anicteric. Neck: Supple without lymphadenopathy. Trachea midline. Heart: Irregular. Lungs: Equal expansion, normal respiratory effort. Abdomen: Soft, nontender, nondistended. Skin: No rashes. No jaundice. Extremities: Normal skin color and turgor. No pedal edema. Neurological: No focal deficits. Alert and oriented x3. Results CBC & Chem 7: 02/17/24 05:57 02/17/24 05:57 Labs: Abnormal Lab Results - Last 24 Hours (Table) 02/16/24 02/16/24 02/16/24 Range/Units 12:03 16:34 16:36 RBC (4.30-5.90) m/uL Hgb (13.0-17.5) gm/dL Hct (39.0-53.0) % RDW (11.5-15.5) % Plt Count (150-450) k/uL Neutrophils # (1.3-7.7) k/uL Lymphocytes # (1.0-4.8) k/uL PT (10.0-12.5) sec INR (<1.2) ABG O2 Saturation 98.0 H (94-97) % Sodium (137-145) mmol/L BUN (9-20) mg/dL Creatinine (0.66-1.25) mg/dL Glucose (74-99) mg/dL POC Glucose (mg/dL) 327 H 280 H (70-110) mg/dL Calcium (8.4-10.2) mg/dL 02/16/24 02/16/24 02/17/24 Range/Units 16:52 21:15 05:57 RBC (4.30-5.90) m/uL Hgb (13.0-17.5) gm/dL Hct (39.0-53.0) % RDW (11.5-15.5) % Plt Count (150-450) k/uL Neutrophils # (1.3-7.7) k/uL Lymphocytes # (1.0-4.8) k/uL PT 16.3 H (10.0-12.5) sec INR 1.6 H (<1.2) ABG O2 Saturation (94-97) % Sodium (137-145) mmol/L BUN (9-20) mg/dL Creatinine (0.66-1.25) mg/dL Glucose (74-99) mg/dL POC Glucose (mg/dL) 247 H 131 H (70-110) mg/dL Calcium (8.4-10.2) mg/dL 02/17/24 02/17/24 02/17/24 Range/Units 05:57 05:57 06:44 RBC 2.82 L (4.30-5.90) m/uL Hgb 8.9 L (13.0-17.5) gm/dL Hct 27.9 L (39.0-53.0) % RDW 15.7 H (11.5-15.5) % Plt Count 91 L (150-450) k/uL Neutrophils # 9.5 H (1.3-7.7) k/uL Lymphocytes # 0.5 L (1.0-4.8) k/uL PT (10.0-12.5) sec INR (<1.2) ABG O2 Saturation (94-97) % Sodium 134 L (137-145) mmol/L BUN 55 H (9-20) mg/dL Creatinine 3.87 H (0.66-1.25) mg/dL Glucose 169 H (74-99) mg/dL POC Glucose (mg/dL) 193 H (70-110) mg/dL Calcium 7.4 L (8.4-10.2) mg/dL Microbiology - Last 24 Hours (Table) 02/15/24 17:56 Blood Culture Gram Stain - Preliminary Blood Blood Culture - Preliminary Presumptive Staph aureus 02/15/24 18:06 Blood Culture Gram Stain - Preliminary Blood Blood Culture - Preliminary Presumptive Staph aureus Molecular ID Assessment and Plan (1) Anemia Narrative/Plan: 78-year-old male presenting to the hospital with multiple comorbidities found to be septic with positive blood cultures, high fever, atrial fibrillation and some acute hypoxemic respiratory failure who was transferred to the ICU and placed on BiPAP initially. 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 Patient's initial hemoglobin of 11.3 with a drop over the last 2 days to 8.9 after being on a heparin drip there was concerns for possible anemia secondary to acute blood loss. Patient reports no bleeding or blood in his stool. He did have a positive occult blood stool test however that was positive recently and he had undergone colonoscopy for it in November of this year with a normal colon. Patient has been having some loose diarrhea. Stool for C. difficile negative. Patient is presenting with a new normocytic normochromic anemia likely secondary to anemia of chronic disease. Can continue to monitor for bleeding however no plans at this time for any endoscopic evaluation. Current Visit: Yes Status: Acute Code(s): D64.9 - ANEMIA, UNSPECIFIED SNOMED Code(s): 795507850 (2) End-stage renal disease on hemodialysis Current Visit: Yes Status: Acute Code(s): N18.6 - END STAGE RENAL DISEASE; Z99.2 - DEPENDENCE ON RENAL DIALYSIS SNOMED Code(s): 784657054 (3) Positive occult stool blood test Current Visit: Yes Status: Acute Code(s): R19.5 - OTHER FECAL ABNORMALITIES SNOMED Code(s): 07199887 (4) Atrial fibrillation with rapid ventricular response Current Visit: Yes Status: Acute Code(s): I48.91 - UNSPECIFIED ATRIAL FIBRILLATION SNOMED Code(s): 462540636957156 (5) Sepsis Current Visit: Yes Status: Acute Code(s): A41.9 - SEPSIS, UNSPECIFIED ORGANISM SNOMED Code(s): 02180989 Plan: 1. Continue symptomatic and supportive care 2. Protonix 40 mg daily for GI prophylaxis 3. Daily CBC, transfuse for hemoglobin less than 7 4. Iron profile and ferritin ordered 5. Patient underwent recent colonoscopy with no active bleeding for positive occult stool 6. No plans on endoscopic evaluation at this time 7. Rest of medical management per primary medical team Thank you for this consultation, we will continue to follow. Dr. Marian Diaz I agree with the dictator's note, documented as a scribe by Mickie Dubose.
[2024-02-17 17:10] LABS: Glucose,Whole Blood 174 mg/dL (70-110)
[2024-02-17] MEDS: WARFARIN 0.5 MG TAB PO ONE (17:11)
[2024-02-17] MEDS ORDERED: WARFARIN 2 MG TAB PO ONE (18:00)
--- NOTE | 2024-02-17 18:42 | P.PN ---
Subjective Patient is seen for follow-up for end-stage renal disease. Status post hemodialysis yesterday with UF of about 1 L. Respiratory status significantly improved post hemodialysis. Off of Cardizem drip. Heart rate now in the 70s. Patient was temporarily on low-dose Levophed during dialysis yesterday. Currently off of pressors. Patient is scheduled for hemodialysis today. Objective - Vital Signs Vital signs: Vital Signs Temp 97.9 F 02/17/24 17:35 Pulse 106 H 02/17/24 17:35 Resp 19 02/17/24 17:00 BP 133/75 02/17/24 17:35 Pulse Ox 98 02/17/24 17:35 FiO2 30 02/17/24 04:15 Intake & Output 02/16/24 02/17/24 02/17/24 18:59 06:59 18:59 Intake Total 33.167 1844.976 590 Output Total 200 1070 2620 Balance -166.833 774.976 -2030 Weight 106 kg 104.1 kg Intake: IV 30 660 90 0.9 KVO 110 90 Vancomycin 1,750 mg In 500 Sodium Chloride 0.9% 500 ml 500 ml @ 167 mls/hr IVPB ONCE ONE Rx#: [id number] ceFAZolin 2 gm In Sodium 50 Chloride 0.9% 50 ml @ 100 mls/hr IVPB Q12H LAKISHA Rx# :[id number] Intake, IV Titration 3.167 559.976 Amount Diltiazem 125 mg In 3.167 Sodium Chloride 0.9% 100 ml @ 5 MG/HR 5 mls/hr IV .Q24H LAKISHA Rx#:[id number] Norepinephrine 4 mg In 59.976 Sodium Chloride 0.9% 250 ml @ 0.03 MCG/KG/MIN 12. 116 mls/hr IV .[id number] LAKISHA Rx#:[id number] Vancomycin 1,750 mg In 500 Sodium Chloride 0.9% 500 ml 500 ml @ 167 mls/hr IVPB ONCE ONE Rx#: [id number] Oral 75 Hemodialysis 550 500 Output: Urine 200 120 120 Hemodialysis 950 2500 Other: Voiding Method Indwelling Catheter Indwelling Catheter Indwelling Catheter # Bowel Movements 0 1 - Exam patient is awake, comfortable, no acute distress. Examination of the heart S1 and S2 Examination of the lungs bilateral breath sounds are heard decreased breath sounds at the bases Abdomen is soft nontender Examination of lower extremities shows no significant edema. 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 - Labs CBC & Chem 7: 02/17/24 05:57 02/17/24 05:57 Labs: Abnormal Lab Results - Last 24 Hours (Table) 02/16/24 02/17/24 02/17/24 Range/Units 21:15 05:57 05:57 RBC 2.82 L (4.30-5.90) m/uL Hgb 8.9 L (13.0-17.5) gm/dL Hct 27.9 L (39.0-53.0) % RDW 15.7 H (11.5-15.5) % Plt Count 91 L (150-450) k/uL Neutrophils # 9.5 H (1.3-7.7) k/uL Lymphocytes # 0.5 L (1.0-4.8) k/uL PT 16.3 H (10.0-12.5) sec INR 1.6 H (<1.2) Sodium (137-145) mmol/L BUN (9-20) mg/dL Creatinine (0.66-1.25) mg/dL Glucose (74-99) mg/dL POC Glucose (mg/dL) 131 H (70-110) mg/dL Calcium (8.4-10.2) mg/dL 02/17/24 02/17/24 02/17/24 Range/Units 05:57 06:44 11:18 RBC (4.30-5.90) m/uL Hgb (13.0-17.5) gm/dL Hct (39.0-53.0) % RDW (11.5-15.5) % Plt Count (150-450) k/uL Neutrophils # (1.3-7.7) k/uL Lymphocytes # (1.0-4.8) k/uL PT (10.0-12.5) sec INR (<1.2) Sodium 134 L (137-145) mmol/L BUN 55 H (9-20) mg/dL Creatinine 3.87 H (0.66-1.25) mg/dL Glucose 169 H (74-99) mg/dL POC Glucose (mg/dL) 193 H 199 H (70-110) mg/dL Calcium 7.4 L (8.4-10.2) mg/dL 02/17/24 Range/Units 17:08 RBC (4.30-5.90) m/uL Hgb (13.0-17.5) gm/dL Hct (39.0-53.0) % RDW (11.5-15.5) % Plt Count (150-450) k/uL Neutrophils # (1.3-7.7) k/uL Lymphocytes # (1.0-4.8) k/uL PT (10.0-12.5) sec INR (<1.2) Sodium (137-145) mmol/L BUN (9-20) mg/dL Creatinine (0.66-1.25) mg/dL Glucose (74-99) mg/dL POC Glucose (mg/dL) 174 H (70-110) mg/dL Calcium (8.4-10.2) mg/dL Microbiology - Last 24 Hours (Table) 02/15/24 17:56 Blood Culture Gram Stain - Preliminary Blood Blood Culture - Preliminary Presumptive Staph aureus 02/15/24 18:06 Blood Culture Gram Stain - Preliminary Blood Blood Culture - Preliminary Presumptive Staph aureus Molecular ID Assessment and Plan Assessment: 1. End-stage renal disease on hemodialysis on a Thursday schedule via left arm AV graft. AV graft is functional. Status post f istulogram and angioplasty 02/16/2024 2. A. fib with RVR status post Cardizem drip 3. Fever, maintained on empiric antibiotics. Blood cultures are growing staph aureus. Chest x-ray does not show significant pneumonia. 4. Volume overload 5. Acute hypoxic respiratory failure secondary to volume overload, improved. Plan: Repeat hemodialysis today as patient is maintained on a Thursday schedule as outpatient. Increase UF as tolerated. Continue with IV antibiotics.
[2024-02-17 19:32] LABS: % Iron Saturation 16.05 (15.00-50.00)
[2024-02-17 20:39] LABS: Glucose,Whole Blood 187 mg/dL (70-110)
[2024-02-17] MEDS: INSULIN DETEMIR (LEVEMIR) 100 UNIT/ML SYR SQ SCH (20:46)
[2024-02-18 06:22] LABS: Glucose,Whole Blood 176 mg/dL (70-110)
[2024-02-18 10:01] LABS: Basophils % (A) 0 %; Eosinophils % (A) 0 %; HCT 28.7 % (39.0-53.0); HGB 9.3 gm/dL (13.0-17.5); Lymphocytes # (A) 0.7 k/uL (1.0-4.8); Lymphocytes % (A) 6 %; MCH 31.3 pg (25.0-35.0); MCHC 32.4 g/dL (31.0-37.0); MCV 96.8 fL (80.0-100.0); Mean Platelet Volume 9.6; Monocytes # (A) 0.6 k/uL (0-1.0); Monocytes % (A) 5 %; Neutrophils # (A) 10.8 k/uL (1.3-7.7); Neutrophils % (A) 86 %; Platelet Count 106 k/uL (150-450); RBC 2.96 m/uL (4.30-5.90); RDW 15.6 % (11.5-15.5); WBC 12.5 k/uL (3.8-10.6)
[2024-02-18 10:05] LABS: INR 1.6 (<1.2); Prothrombin Time 16.8 sec (10.0-12.5)
[2024-02-18 10:29] LABS: African American GFR (CKD) 18 (>60 ml/min/1.73 sqM); Anion Gap 8 mmol/L; Blood Urea Nitrogen 58 mg/dL (9-20); Calcium 7.6 mg/dL (8.4-10.2); Carbon Dioxide 26 mmol/L (22-30); Chloride 98 mmol/L (98-107); Glucose 177 mg/dL (74-99); Non-African American GFR(CKD) 16 (>60 ml/min/1.73 sqM); Potassium 3.7 mmol/L (3.5-5.1); Sodium 132 mmol/L (137-145)
--- NOTE | 2024-02-18 10:30 | P.PN ---
Subjective HISTORY OF PRESENT ILLNESS: This is a 78-year-old female with a past medical history significant for end- stage renal disease on hemodialysis, obstructive sleep apnea with CPAP use, hypertension, hyperlipidemia, diabetes, atrial flutter/fibrillation. 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 He follows with a physician at [facility]. We have been asked to see the patient in consultation for AF with RVR. Patient examined at the bedside in the ER. Patient was found to be septic and workup is ongoing per primary medicine. Patient was found to be in atrial fibrillation/flutter with RVR. Patient was placed on IV Cardizem which has since been discontinued. His rates are controlled at the time of examination. He is currently undergoing hemodialysis. Patient was placed on IV heparin. His Coumadin has not been resumed. DIAGNOSTICS: - EKG reveals atrial flutter with RVR. Left BBB - Chest xray cardiomegaly, pulmonary vascular congestion and bilateral pleural effusions - Laboratory data: BC 17.4. Hemoglobin 9.8. Platelet count 92. INR 1.9. Sodium 136. Potassium 3.5. BUN 87. Creatinine 4.79. Troponin 0.276 - Current home cardiac medications include Lovastatin 10 mg daily and Coumadin 2.5mg daily 02/18/2024 Patient examined this morning at the bedside. Currently denies chest pain or pressure. He denies shortness of breath. Telemetry reveals sinus mechanism. Patient's Coumadin has been placed on hold secondary to drop in hemoglobin. Hemoglobin this morning is improved at 9.3. Echocardiogram completed revealing ejection fraction 40 to 45%, false tendon seen in LV, mild MR, TAVR valve without stenosis, mild to moderate perivalvular aortic regurgitation, mild tricuspid regurgitation. PHYSICAL EXAM: VITAL SIGNS: Reviewed. GENERAL: Well-developed in no acute distress. HEENT: Head is normocephalic. Pupils are equal, round. Sclerae anicteric. Mucous membranes of the mouth are moist. Neck supple. No JVD or thyromegaly LUNGS: Respirations even and unlabored. Lungs essentially clear to auscultation bilaterally. HEART: Irregular rate and rhythm. S1 and S2 heard. + systolic murmur at the base ABDOMEN: Soft. Nondistended. Nontender. EXTREMITIES: Normal range of motion. No clubbing or cyanosis. Peripheral pulses intact. No lower extremity edema NEUROLOGIC: Awake and alert. Oriented x 3. ASSESSMENT: Sepsis Atrial fibrillation with RVR, paroxysmal Left bundle branch block End-stage renal disease on hemodialysis Abnormal troponin, likely secondary to CKD Anemia of chronic disease Hypertension Hyperlipidemia Diabetes Obstructive sleep apnea with CPAP use History of TAVR, July 2023, [facility] PLAN: May resume Coumadin tonight from a cardiac standpoint. Continue to monitor hemoglobin. Monitor INR. Continue additional cardiac medications Continue telemetry monitoring Further recommendations pending patient course Nurse practitioner note has been reviewed by physician. Signing provider agrees with the documented findings, assessment, and plan of care documented by WHEEL ROLLER as a scribe. Objective - Vital Signs Vital signs: Vital Signs Temp 99.4 F 02/18/24 04:15 Pulse 87 02/18/24 04:15 Resp 18 02/18/24 04:15 BP 105/65 02/18/24 04:15 Pulse Ox 100 02/18/24 04:15 FiO2 30 02/17/24 04:15 Intake & Output 02/17/24 02/18/24 02/18/24 18:59 06:59 18:59 Intake Total 590 Output Total 2620 35 Balance -2030 -35 Weight 64.5 kg Intake: IV 90 0.9 KVO 90 Hemodialysis 500 Output: Urine 120 35 Hemodialysis 2500 Other: Voiding Method Indwelling Catheter Indwelling Catheter - Labs CBC & Chem 7: 02/18/24 09:27 02/17/24 05:57 Labs: Abnormal Lab Results - Last 24 Hours (Table) 02/17/24 02/17/24 02/17/24 Range/Units 05:57 11:18 17:08 POC Glucose (mg/dL) 199 H 174 H (70-110) mg/dL Iron 26 L (65-175) UG/DL TIBC 162 L (228-460) UG/DL Transferrin 116.0 L (204.0-354.0) mg/dL Ferritin 3396.0 H (22.0-322.0) ng/mL 02/17/24 02/18/24 Range/Units 20:38 06:21 POC Glucose (mg/dL) 187 H 176 H (70-110) mg/dL Iron (65-175) UG/DL TIBC (228-460) UG/DL Transferrin (204.0-354.0) mg/dL Ferritin (22.0-322.0) ng/mL Microbiology - Last 24 Hours (Table) 02/15/24 17:56 Blood Culture Gram Stain - Preliminary Blood Blood Culture - Preliminary Presumptive Staph aureus 02/15/24 18:06 Blood Culture Gram Stain - Preliminary Blood Blood Culture - Preliminary Presumptive Staph aureus Molecular ID
--- NOTE | 2024-02-18 10:37 | P.PN ---
Subjective Patient is seen for follow-up for end-stage renal disease. Status post hemodialysis yesterday with UF of about 2.5 L. Respiratory status significantly improved post hemodialysis. Off of Cardizem drip. Heart rate now in the 70s. transferred out of ICU. Objective - Vital Signs Vital signs: Vital Signs Temp 98.4 F 02/18/24 07:45 Pulse 80 02/18/24 07:45 Resp 18 02/18/24 07:45 BP 96/55 02/18/24 07:45 Pulse Ox 98 02/18/24 07:45 FiO2 30 02/17/24 04:15 Intake & Output 02/17/24 02/18/24 02/18/24 18:59 06:59 18:59 Intake Total 590 120 Output Total 2620 35 0 Balance -2030 120 Weight 64.5 kg Intake: IV 90 0.9 KVO 90 Oral 120 Hemodialysis 500 Output: Gastric Drainage 0 Urine 120 35 0 Stool 0 Urine/Stool Mix 0 Emesis 0 Oral Regurgitation 0 Hemodialysis 2500 Other 0 Other: Voiding Method Indwelling Catheter Indwelling Catheter Indwelling Catheter # Voids 0 # Bowel Movements 0 - Exam patient is awake, comfortable, no acute distress. Examination of the heart S1 and S2 Examination of the lungs bilateral breath sounds are heard decreased breath sounds at the bases Abdomen is soft nontender Examination of lower extremities shows no significant edema. 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 - Labs CBC & Chem 7: 02/18/24 09:27 02/18/24 09:27 Labs: Abnormal Lab Results - Last 24 Hours (Table) 02/17/24 02/17/24 02/17/24 Range/Units 05:57 11:18 17:08 WBC (3.8-10.6) k/uL RBC (4.30-5.90) m/uL Hgb (13.0-17.5) gm/dL Hct (39.0-53.0) % RDW (11.5-15.5) % Plt Count (150-450) k/uL Neutrophils # (1.3-7.7) k/uL Lymphocytes # (1.0-4.8) k/uL PT (10.0-12.5) sec INR (<1.2) Sodium (137-145) mmol/L BUN (9-20) mg/dL Creatinine (0.66-1.25) mg/dL Glucose (74-99) mg/dL POC Glucose (mg/dL) 199 H 174 H (70-110) mg/dL Calcium (8.4-10.2) mg/dL Iron 26 L (65-175) UG/DL TIBC 162 L (228-460) UG/DL Transferrin 116.0 L (204.0-354.0) mg/dL Ferritin 3396.0 H (22.0-322.0) ng/mL 02/17/24 02/18/24 02/18/24 Range/Units 20:38 06:21 09:06 WBC (3.8-10.6) k/uL RBC (4.30-5.90) m/uL Hgb (13.0-17.5) gm/dL Hct (39.0-53.0) % RDW (11.5-15.5) % Plt Count (150-450) k/uL Neutrophils # (1.3-7.7) k/uL Lymphocytes # (1.0-4.8) k/uL PT 16.8 H (10.0-12.5) sec INR 1.6 H (<1.2) Sodium (137-145) mmol/L BUN (9-20) mg/dL Creatinine (0.66-1.25) mg/dL Glucose (74-99) mg/dL POC Glucose (mg/dL) 187 H 176 H (70-110) mg/dL Calcium (8.4-10.2) mg/dL Iron (65-175) UG/DL TIBC (228-460) UG/DL Transferrin (204.0-354.0) mg/dL Ferritin (22.0-322.0) ng/mL 02/18/24 02/18/24 Range/Units 09:27 09:27 WBC 12.5 H (3.8-10.6) k/uL RBC 2.96 L (4.30-5.90) m/uL Hgb 9.3 L (13.0-17.5) gm/dL Hct 28.7 L (39.0-53.0) % RDW 15.6 H (11.5-15.5) % Plt Count 106 L (150-450) k/uL Neutrophils # 10.8 H (1.3-7.7) k/uL Lymphocytes # 0.7 L (1.0-4.8) k/uL PT (10.0-12.5) sec INR (<1.2) Sodium 132 L (137-145) mmol/L BUN 58 H (9-20) mg/dL Creatinine 3.57 H (0.66-1.25) mg/dL Glucose 177 H (74-99) mg/dL POC Glucose (mg/dL) (70-110) mg/dL Calcium 7.6 L (8.4-10.2) mg/dL Iron (65-175) UG/DL TIBC (228-460) UG/DL Transferrin (204.0-354.0) mg/dL Ferritin (22.0-322.0) ng/mL Microbiology - Last 24 Hours (Table) 02/15/24 17:56 Blood Culture Gram Stain - Preliminary Blood Blood Culture - Preliminary Presumptive Staph aureus 02/15/24 18:06 Blood Culture Gram Stain - Preliminary Blood Blood Culture - Preliminary Presumptive Staph aureus Molecular ID Assessment and Plan Assessment: 1. End-stage renal disease on hemodialysis on a Thursday schedule via left arm AV graft. AV graft is functional. Status post fistulogram and angioplasty 02/16/2024 2. A. fib with RVR status post Cardizem drip 3. Fever, maintained on empiric antibiotics. Blood cultures are growing staph aureus. Chest x-ray does not show significant pneumonia. 4. Volume overload 5. Acute hypoxic respiratory failure secondary to volume overload, improved. 6. Staph aureus bacteremia status post vancomycin. Being followed by ID. Plan: hemodialysis on a Thursday schedule. Continue with IV antibiotics.
--- NOTE | 2024-02-18 11:20 | P.PN ---
Subjective Progress Note Date: 02/18/24 Principal diagnosis: Shortness of breath. Patient is a 78-year-old male with past medical history significant for atrial fibrillation anticoagulated on Coumadin, previous TAVR, hyperlipidemia, diabetes mellitus, end-stage renal disease receiving hemodialysis (Thursday, Thursday, Thursday schedule), obstructive sleep apnea with home BiPAP. Patient is technically a poor historian. Prior to coming in, patient was noted to be severely weak and somewhat confused by his . He did reportedly have a assisted fall from bed earlier in the week. I believe he was briefly evaluated by [facility] ER. Thursday, the patient was reportedly at the hemodialysis center. He was noted to have an elevated heart rate. Hemodialysis was terminated. Subsequently, he was brought into the emergency room for further evaluation on 02/15/2024. Heart rhythm on arrival was atrial fibrillation with rapid ventricular rate of 157 bpm. He was originally started on a Cardizem infusion which is currently off. He was also noted to be febrile. While in the emergency room, his left upper extremity AV graft was noted to be malfunctioning. Yesterday, 02/16/2024, he did undergo a left upper extremity fistulogram with ultrasound-guided access, percutaneous transluminal balloon angioplasty of the left subclavian vein, and thrombolysis at the proximal aspect of the graft. During the procedure, he developed some respiratory distress. He did receive 60 mg of IV Lasix. Patient reportedly still produces limited amounts of urine. Chest x-ray during these events showed worsening bilateral interstitial infiltrates concerning for interstitial edema versus atypical pneumonia. Negative for influenza, RSV, COVID. Considering patient's clinical presentation, favoring fluid overload. Patient was then transferred to the intensive care unit on BiPAP support with pressure settings of 10/5 and FiO2 of 60%. ABGs done on the settings included a PaO2 of 94, pCO2 of 42, pH of 7.39. FiO2 was then weaned down to 40%. It appears they were able to get his AV graft working, and patient just received stat hemodialysis. A total of 950 mL was removed. During hemodialysis, patient became hypotensive requiring the initiation of low-dose norepinephrine which is infusing at 0.03 mcg/kg/min. He art rhythm remains atrial fibrillation, but now with a controlled ventricular response. He is currently lying in bed, on 2 L/min nasal cannula, in no acute distress. SpO2 is 98%. BiPAP is on standby. He is oriented x 3, but a poor historian. His short-term memory of events leading to his hospitalization are limited. no focal deficits. He denies any specific complaints. Shortness of breath is reportedly improved. Denies cough, sputum production, chest pain. Denies any heart palpitations or lower extremity swelling. Denies nausea, vomiting, diarrhea, abdominal pain. Patient was having frequent small amounts of urination at home. Otherwise no urinary complaints. No observable wounds. Preliminary blood cultures show gram-positive cocci in clusters. He is covered on pharmacy to dose vancomycin. Also, empirically started on cefepime. Most recent CBC from yesterday includes a WBC count of 17.4, hemoglobin 9.8, hematocrit 29.4, platelets 92. No overt signs of bleeding noted. INR 2.2 on arrival. Chronically anticoagulated on warfarin. BMP from yesterday includes: Sodium 136, potassium 3.5, chloride 101, serum bicarb 26, BUN 87, creatinine 4.79, glucose 213. Urinalysis not concerning for UTI. Lactic acid level was 2.6 down to 1.3. Troponins also elevated at 0.171, 0.203, and 0.26 respectively. Possibly supply/demand mismatch and in the setting of renal failure. Initial EKG showed A-fib RVR with a left bundle branch block, rate was noted at 157 bpm. Patient has had follow-up echocardiogram which estimated a moderately impaired left ventricular systolic function 40 to 45%, TAVR valve noted with mild to moderate perivalvular regurgitation. Patient is being m onitored closely in intensive care unit. Progress note dated February 18, 2024. This is a 78-year-old male that we actually initially brought down into the intensive care unit, because of impending respiratory failure, from missed hemodialysis, secondary to a clotted AV fistula. Anyway, the patient was seen by vascular surgery, and the AV fistula was made to be functional, the patient did receive emergent hemodialysis, which prevented or precluded intubation and mechanical ventilation. The patient is seen today in room 361. He is on saline at 10 cc an hour, and nasal O2 at 2 L. He says he did use the BiPAP last night, with settings of 10/5 and 30%. His respiratory status is much improved. Current labs include a white count 12.5, hemoglobin 9.3, hematocrit 28.7, and a platelet count of 106,000. PT 16.8 INR 1.6. Sodium 132, potassium 3.7, chloride 98, CO2 26, BUN 58, creatinine 3.57. Calcium is 7.6. Blood cultures are showing presumptive Staph aureus. Chest x-ray, compared to the one the day before, shows significant improvement. Objective - Vital Signs Vital signs: Vital Signs Temp 98.4 F 02/18/24 07:45 Pulse 80 02/18/24 07:45 Resp 18 02/18/24 07:45 BP 96/55 02/18/24 07:45 Pulse Ox 98 02/18/24 07:45 FiO2 30 02/17/24 04:15 Intake & Output 02/17/24 02/18/24 02/18/24 18:59 06:59 18:59 Intake Total 590 120 Output Total 2620 35 0 Balance -2030 -35 120 Weight 64.5 kg Intake: IV 90 0.9 KVO 90 Oral 120 Hemodialysis 500 Output: Gastric Drainage 0 Urine 120 35 0 Stool 0 Urine/Stool Mix 0 Emesis 0 Oral Regurgitation 0 Hemodialysis 2500 Other 0 Other: Voiding Method Indwelling Catheter Indwelling Catheter Indwelling Catheter # Voids 0 # Bowel Movements 0 - Exam No acute distress, oriented 3. The patient is currently on 2 L nasal cannula. No respiratory distress, or use of accessory muscles. HEENT examination is grossly unremarkable. Mucous membranes are moist. No oral lesions. Neck supple. Full range of motion. No adenopathy thyromegaly or neck vein distention. Cardiovascular examination reveals regular rhythm rate. S1-S2 normal. No S3 or S4. No discernible murmur noted. Heart sounds distant. Heart rate 80 bpm. Lungs reveal mild bibasilar crackles. No wheezes or rhonchi. 2 L saturation is 98 to 100%. Breath sounds are equal bilaterally. Abdomen soft bowel sounds are heard. No masses or tenderness. Extremities are intact. No cyanosis clubbing or edema. Skin is without rash or lesion. Neurologic examination is brief but nonfocal. - Labs CBC & Chem 7: 02/18/24 09:27 02/18/24 09:27 Labs: Abnormal Lab Results - Last 24 Hours (Table) 02/17/24 02/17/24 02/17/24 Range/Units 05:57 11:18 17:08 WBC (3.8-10.6) k/uL RBC (4.30-5.90) m/uL Hgb (13.0-17.5) gm/dL Hct (39.0-53.0) % RDW (11.5-15.5) % Plt Count (150-450) k/uL Neutrophils # (1.3-7.7) k/uL Lymphocytes # (1.0-4.8) k/uL PT (10.0-12.5) sec INR (<1.2) Sodium (137-145) mmol/L BUN (9-20) mg/dL Creatinine (0.66-1.25) mg/dL Glucose (74-99) mg/dL POC Glucose (mg/dL) 199 H 174 H (70-110) mg/dL Calcium (8.4-10.2) mg/dL Iron 26 L (65-175) UG/DL TIBC 162 L (228-460) UG/DL Transferrin 116.0 L (204.0-354.0) mg/dL Ferritin 3396.0 H (22.0-322.0) ng/mL 02/17/24 02/18/24 02/18/24 Range/Units 20:38 06:21 09:06 WBC (3.8-10.6) k/uL RBC (4.30-5.90) m/uL Hgb (13.0-17.5) gm/dL Hct (39.0-53.0) % RDW (11.5-15.5) % Plt Count (150-450) k/uL Neutrophils # (1.3-7.7) k/uL Lymphocytes # (1.0-4.8) k/uL PT 16.8 H (10.0-12.5) sec INR 1.6 H (<1.2) Sodium (137-145) mmol/L BUN (9-20) mg/dL Creatinine (0.66-1.25) mg/dL Glucose (74-99) mg/dL POC Glucose (mg/dL) 187 H 176 H (70-110) mg/dL Calcium (8.4-10.2) mg/dL Iron (65-175) UG/DL TIBC (228-460) UG/DL Transferrin (204.0-354.0) mg/dL Ferritin (22.0-322.0) ng/mL 02/18/24 02/18/24 Range/Units 09:27 09:27 WBC 12.5 H (3.8-10.6) k/uL RBC 2.96 L (4.30-5.90) m/uL Hgb 9.3 L (13.0-17.5) gm/dL Hct 28.7 L (39.0-53.0) % RDW 15.6 H (11.5-15.5) % Plt Count 106 L (150-450) k/uL Neutrophils # 10.8 H (1.3-7.7) k/uL Lymphocytes # 0.7 L (1.0-4.8) k/uL PT (10.0-12.5) sec INR (<1.2) Sodium 132 L (137-145) mmol/L BUN 58 H (9-20) mg/dL Creatinine 3.57 H (0.66-1.25) mg/dL Glucose 177 H (74-99) mg/dL POC Glucose (mg/dL) (70-110) mg/dL Calcium 7.6 L (8.4-10.2) mg/dL Iron (65-175) UG/DL TIBC (228-460) UG/DL Transferrin (204.0-354.0) mg/dL Ferritin (22.0-322.0) ng/mL Microbiology - Last 24 Hours (Table) 02/15/24 17:56 Blood Culture Gram Stain - Preliminary Blood Blood Culture - Preliminary Presumptive Staph aureus 02/15/24 18:06 Blood Culture Gram Stain - Preliminary Blood Blood Culture - Preliminary Presumptive Staph aureus Molecular ID Assessment and Plan Assessment: Acute hypoxemic respiratory failure, initially placed on BiPAP, currently on 2 L/min nasal cannula, likely secondary to a combination of fluid overload and acute systolic CHF exacerbation. End-stage renal disease, receiving hemodialysis on a Thursday, Thursday, Thursday schedule. Patient's outpatient hemodialysis treatment was terminated secondary to hemodynamic instability. Patient was transferred to [facility]. There were some issues utilizing the left upper extremity AV fistula. On 02/16/2024, he did undergo a left upper extremity fistulogram with ultrasound-guided access, percutaneous transluminal balloon angioplasty of the left subclavian vein, and thrombolysis at the proximal aspect of the graft. During the procedure he was laying flat, he developed some respiratory distress. Initially placed on BiPAP and transferred to the intensive care unit. Patient did receive stat hemodialysis earlier, and a total of 950 MLS was removed. Atrial fibrillation with rapid ventricular response. Bacteremia and sepsis, secondary to presumptive Staphylococcus aureus. Hypotension and shock. Acute febrile illness. Altered mental status, possibly explained by acute metabolic encephalopathy and sepsis. Acute leukocytosis. Thrombocytopenia. Anemia of chronic disease, secondary to end-stage renal disease. Elevated troponins, suspect supply/demand mismatch. History of TAVR. History of hyperlipidemia. Obesity, with a BMI of 33.5 kg/m. Obstructive sleep apnea, with home BiPAP device. Former tobacco smoker. Plan: Plan dated February 18, 2024. I am happy to report that the patient is doing much better. He did use BiPAP last night with settings of 10/5, 30%. Currently he is getting saline at 10 cc an hour, and oxygen by nasal cannula at 2 L. We will continue to follow the patient, make recommendations along the way. The patient's overall prognosis remains guarded. Labs, x-rays, and medications are reviewed. Time with Patient: Less than 30
[2024-02-18 11:34] LABS: Glucose,Whole Blood 233 mg/dL (70-110)
--- NOTE | 2024-02-18 11:38 | XR ---
EXAMINATION TYPE: XR chest 1V portable DATE OF EXAM: 02/18/2024 7:04 AM CLINICAL INDICATION:Male, 78 years old with history of follow up chf exacerbation; fluid overload; PH H COMPARISON: Chest radiographs from 02/16/2024 TECHNIQUE: XR chest 1V portable Frontal view of the chest. FINDINGS: Lungs/Pleura: There is no evidence of pleural effusion, focal consolidation, or pneumothorax. Pulmonary vascularity: Mild pulmonary vascular congestion. Heart/mediastinum: Cardiomediastinal silhouette is prominent in size. Musculoskeletal: No acute osseous pathology. IMPRESSION: Cardiomegaly and mild pulmonary vascular congestion. Not significantly changed from prior.
--- NOTE | 2024-02-18 14:07 | P.PN ---
Subjective Progress Note Date: 02/18/24 Principal diagnosis: Malfunctioning AV graft Patient is seen and examined today as a follow-up in the ICU. Yesterday he underwent left upper extremity fistulogram with percutaneous transluminal balloon angioplasty of the left subclavian vein and initiation of thrombolysis at the proximal aspect of the graft. Yesterday evening he underwent dialysis. Awaiting recommendations from nephrology if he will have repeat dialysis today. Dressing clean dry and intact. 02/18/2024 Patient seen and examined today as a follow-up. He was transferred to [facility] care from the ICU. States overall he is doing okay. Denies any abdominal pain, nausea or vomiting. Denies any blood in his stool. Hemoglobin improved to 9.3 platelets 106,000, INR 1.6. Iron 26 however ferritin is 3396 Objective - Vital Signs Vital signs: Vital Signs Temp 98.4 F 02/18/24 07:45 Pulse 80 02/18/24 07:45 Resp 18 02/18/24 07:45 BP 96/55 02/18/24 07:45 Pulse Ox 98 02/18/24 07:45 FiO2 30 02/17/24 04:15 Intake & Output 02/17/24 02/18/24 02/18/24 18:59 06:59 18:59 Intake Total 590 120 Output Total 2620 35 0 Balance -2030 35 120 Weight 64.5 kg Intake: IV 90 0.9 KVO 90 Oral 120 Hemodialysis 500 Output: Gastric Drainage 0 Urine 120 35 0 Stool 0 Urine/Stool Mix 0 Emesis 0 Oral Regurgitation 0 Hemodialysis 2500 Other 0 Other: Voiding Method Indwelling Catheter Indwelling Catheter Indwelling Catheter # Voids 0 # Bowel Movements 0 - Exam General appearance: The patient is alert, oriented, appears in no acute distress. HET: Head is normocephalic and atraumatic. Pupils are equal and reactive. Neck: Supple. Heart: Regular. Lungs: Equal expansion, normal respiratory effort. Abdomen: Soft, nondistended. Extremities: Normal skin color and turgor. Left upper extremity AV graft with dressing in place, palpable thrill. Neurological: No focal deficits. Strength and sensation are grossly intact. - Labs CBC & Chem 7: 02/18/24 09:27 02/18/24 09:27 Labs: Abnormal Lab Results - Last 24 Hours (Table) 02/17/24 02/17/24 02/17/24 Range/Units 05:57 11:18 17:08 WBC (3.8-10.6) k/uL RBC (4.30-5.90) m/uL Hgb (13.0-17.5) gm/dL Hct (39.0-53.0) % RDW (11.5-15.5) % Plt Count (150-450) k/uL Neutrophils # (1.3-7.7) k/uL Lymphocytes # (1.0-4.8) k/uL PT (10.0-12.5) sec INR (<1.2) Sodium (137-145) mmol/L BUN (9-20) mg/dL Creatinine (0.66-1.25) mg/dL Glucose (74-99) mg/dL POC Glucose (mg/dL) 199 H 174 H (70-110) mg/dL Calcium (8.4-10.2) mg/dL Iron 26 L (65-175) UG/DL TIBC 162 L (228-460) UG/DL Transferrin 116.0 L (204.0-354.0) mg/dL Ferritin 3396.0 H (22.0-322.0) ng/mL 02/17/24 02/18/24 02/18/24 Range/Units 20:38 06:21 09:06 WBC (3.8-10.6) k/uL RBC (4.30-5.90) m/uL Hgb (13.0-17.5) gm/dL Hct (39.0-53.0) % RDW (11.5-15.5) % Plt Count (150-450) k/uL Neutrophils # (1.3-7.7) k/uL Lymphocytes # (1.0-4.8) k/uL PT 16.8 H (10.0-12.5) sec INR 1.6 H (<1.2) Sodium (137-145) mmol/L BUN (9-20) mg/dL Creatinine (0.66-1.25) mg/dL Glucose (74-99) mg/dL POC Glucose (mg/dL) 187 H 176 H (70-110) mg/dL Calcium (8.4-10.2) mg/dL Iron (65-175) UG/DL TIBC (228-460) UG/DL Transferrin (204.0-354.0) mg/dL Ferritin (22.0-322.0) ng/mL 02/18/24 02/18/24 Range/Units 09:27 09:27 WBC 12.5 H (3.8-10.6) k/uL RBC 2.96 L (4.30-5.90) m/uL Hgb 9.3 L (13.0-17.5) gm/dL Hct 28.7 L (39.0-53.0) % RDW 15.6 H (11.5-15.5) % Plt Count 106 L (150-450) k/uL Neutrophils # 10.8 H (1.3-7.7) k/uL Lymphocytes # 0.7 L (1.0-4.8) k/uL PT (10.0-12.5) sec INR (<1.2) Sodium 132 L (137-145) mmol/L BUN 58 H (9-20) mg/dL Creatinine 3.57 H (0.66-1.25) mg/dL Glucose 177 H (74-99) mg/dL POC Glucose (mg/dL) (70-110) mg/dL Calcium 7.6 L (8.4-10.2) mg/dL Iron (65-175) UG/DL TIBC (228-460) UG/DL Transferrin (204.0-354.0) mg/dL Ferritin (22.0-322.0) ng/mL Microbiology - Last 24 Hours (Table) 02/15/24 17:56 Blood Culture Gram Stain - Preliminary Blood Blood Culture - Preliminary Presumptive Staph aureus 02/15/24 18:06 Blood Culture Gram Stain - Preliminary Blood Blood Culture - Preliminary Presumptive Staph aureus Molecular ID Assessment and Plan (1) Anemia Narrative/Plan: 78-year-old male presenting to the hospital with multiple comorbidities found to be septic with positive blood cultures, high fever, atrial fibrillation and some acute hypoxemic respiratory failure who was transferred to the ICU and placed on BiPAP initially. 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 Patient's initial hemoglobin of 11.3 with a drop over the last 2 days to 8.9 after being on a heparin drip there was concerns for possible anemia secondary to acute blood loss. Patient reports no bleeding or blood in his stool. He did have a positive occult blood stool test however that was positive recently and he had undergone colonoscopy for it in November of this year with a normal colon. Patient has been having some loose diarrhea. Stool for C. difficile negative. Patient is presenting with a new normocytic normochromic anemia likely secondary to anemia of chronic disease. Can continue to monitor for bleeding however no plans at this time for any endoscopic evaluation. Hemoglobin is improved to 9.3 iron studies are not consistent with an iron deficiency anemia his ferritin is normal. Current Visit: Yes Status: Acute Code(s): D64.9 - ANEMIA, UNSPECIFIED SNOMED Code(s): 209695617 (2) End-stage renal disease on hemodialysis Current Visit: Yes Status: Acute Code(s): N18.6 - END STAGE RENAL DISEASE; Z99.2 - DEPENDENCE ON RENAL DIALYSIS SNOMED Code(s): 408546526 (3) Positive occult stool blood test Current Visit: Yes Status: Acute Code(s): R19.5 - OTHER FECAL ABNORMALITIES SNOMED Code(s): 57201420 (4) Atrial fibrillation with rapid ventricular response Current Visit: Yes Status: Acute Code(s): I48.91 - UNSPECIFIED ATRIAL FIBRILLATION SNOMED Code(s): 531371997323660 (5) Sepsis Current Visit: Yes Status: Acute Code(s): A41.9 - SEPSIS, UNSPECIFIED ORGANISM SNOMED Code(s): 99075972 Plan: 1. Continue symptomatic and supportive care 2. Protonix 40 mg daily for GI prophylaxis 3. Diet as tolerated 4. Iron profile and ferritin ordered and reviewed. Likely anemia of chronic disease. 5. Patient underwent recent colonoscopy with no active bleeding for positive occult stool 6. No plans on endoscopic evaluation at this time 7. Rest of medical management per primary medical team Thank you for this consultation, we will sign off at this time. Dr. Marian Diaz I agree with the dictator's note, documented as a scribe by Mickie Dubose.
--- NOTE | 2024-02-18 14:37 | P.PN ---
Subjective Progress Note Date: 02/17/24 Principal diagnosis: Reason for follow-up with MSSA bacteremia Patient is a 78-year-old male with a past medical his significant for diabetes mellitus hypertension hyperlipidemia atrial fibrillation history of end-stage renal disease on dialysis through left arm AV graft patient has been brought into the hospital for fever weakness and did have bacteremia. On today's evaluation that is 02/17/2024,the patient did have resolution of his fever and patient is afebrile this morning, patient is on 2 L nasal cannula supplemental oxygen and denies any shortness of breath no chest pain or cough.Patient denies having any nausea or vomiting, no abdominal pain and no diarrhea has been reported. Patient white count of 10.4 creatinine 3.87 Objective - Vital Signs Vital signs: Vital Signs Temp 98.4 F 02/18/24 07:45 Pulse 80 02/18/24 07:45 Resp 18 02/18/24 07:45 BP 96/55 02/18/24 07:45 Pulse Ox 98 02/18/24 07:45 FiO2 30 02/17/24 04:15 Intake & Output 02/17/24 02/18/24 02/18/24 18:59 06:59 18:59 Intake Total 590 120 Output Total 2620 35 0 Balance -2030 -35 120 Weight 64.5 kg Intake: IV 90 0.9 KVO 90 Oral 120 Hemodialysis 500 Output: Gastric Drainage 0 Urine 120 35 0 Stool 0 Urine/Stool Mix 0 Emesis 0 Oral Regurgitation 0 Hemodialysis 2500 Other 0 Other: Voiding Method Indwelling Catheter Indwelling Catheter Indwelling Catheter # Voids 0 # Bowel Movements 0 - Exam GENERAL DESCRIPTION: An elderly male lying in bed in no distress RESPIRATORY SYSTEM: Unlabored breathing , decreased breath sounds at bases HEART: S1 S2 regular rate and rhythm , ABDOMEN: Soft , no tenderness EXTREMITIES: No edema feet - Labs CBC & Chem 7: 02/18/24 09:27 02/18/24 09:27 Labs: Abnormal Lab Results - Last 24 Hours (Table) 02/17/24 02/17/24 02/17/24 Range/Units 05:57 11:18 17:08 WBC (3.8-10.6) k/uL RBC (4.30-5.90) m/uL Hgb (13.0-17.5) gm/dL Hct (39.0-53.0) % RDW (11.5-15.5) % Plt Count (150-450) k/uL Neutrophils # (1.3-7.7) k/uL Lymphocytes # (1.0-4.8) k/uL PT (10.0-12.5) sec INR (<1.2) Sodium (137-145) mmol/L BUN (9-20) mg/dL Creatinine (0.66-1.25) mg/dL Glucose (74-99) mg/dL POC Glucose (mg/dL) 199 H 174 H (70-110) mg/dL Calcium (8.4-10.2) mg/dL Iron 26 L (65-175) UG/DL TIBC 162 L (228-460) UG/DL Transferrin 116.0 L (204.0-354.0) mg/dL Ferritin 3396.0 H (22.0-322.0) ng/mL 02/17/24 02/18/24 02/18/24 Range/Units 20:38 06:21 09:06 WBC (3.8-10.6) k/uL RBC (4.30-5.90) m/uL Hgb (13.0-17.5) gm/dL Hct (39.0-53.0) % RDW (11.5-15.5) % Plt Count (150-450) k/uL Neutrophils # (1.3-7.7) k/uL Lymphocytes # (1.0-4.8) k/uL PT 16.8 H (10.0-12.5) sec INR 1.6 H (<1.2) Sodium (137-145) mmol/L BUN (9-20) mg/dL Creatinine (0.66-1.25) mg/dL Glucose (74-99) mg/dL POC Glucose (mg/dL) 187 H 176 H (70-110) mg/dL Calcium (8.4-10.2) mg/dL Iron (65-175) UG/DL TIBC (228-460) UG/DL Transferrin (204.0-354.0) mg/dL Ferritin (22.0-322.0) ng/mL 02/18/24 02/18/24 Range/Units 09:27 09:27 WBC 12.5 H (3.8-10.6) k/uL RBC 2.96 L (4.30-5.90) m/uL Hgb 9.3 L (13.0-17.5) gm/dL Hct 28.7 L (39.0-53.0) % RDW 15.6 H (11.5-15.5) % Plt Count 106 L (150-450) k/uL Neutrophils # 10.8 H (1.3-7.7) k/uL Lymphocytes # 0.7 L (1.0-4.8) k/uL PT (10.0-12.5) sec INR (<1.2) Sodium 132 L (137-145) mmol/L BUN 58 H (9-20) mg/dL Creatinine 3.57 H (0.66-1.25) mg/dL Glucose 177 H (74-99) mg/dL POC Glucose (mg/dL) (70-110) mg/dL Calcium 7.6 L (8.4-10.2) mg/dL Iron (65-175) UG/DL TIBC (228-460) UG/DL Transferrin (204.0-354.0) mg/dL Ferritin (22.0-322.0) ng/mL Microbiology - Last 24 Hours (Table) 02/15/24 17:56 Blood Culture Gram Stain - Preliminary Blood Blood Culture - Preliminary Presumptive Staph aureus 02/15/24 18:06 Blood Culture Gram Stain - Preliminary Blood Blood Culture - Preliminary Presumptive Staph aureus Molecular ID Assessment and Plan (1) MSSA bacteremia Current Visit: Yes Status: Acute Code(s): R78.81 - BACTEREMIA; B95.61 - METHICILLIN SUSCEP STAPH INFCT CAUSING DIS CLASSD ELSWHR SNOMED Code(s): 560131791 (2) Leukocytosis Current Visit: Yes Status: Acute Code(s): D72.829 - ELEVATED WHITE BLOOD CELL COUNT, UNSPECIFIED SNOMED Code(s): 561825616 Plan: 1patient with MSSA bacteremia in this patient who do have a history of renal failure with on hemodialysis with a left arm fistula site with presentation to the hospital with weakness fall and urinary frequency however UA is negative abdominal soft no significant respiratory symptoms or hypoxemia question of possible related to the fistula site which was nonfunctioning and did have angiogram and angioplasty done this admission. 2blood cultures has been repeated to document clearance of his bacteremia 3-patient to continue with cefazolin Dictation was produced using [employer] dictation software. please excuse any grammatical, word or spelling errors. Time with Patient: Less than 30
--- NOTE | 2024-02-18 14:38 | P.PN ---
Subjective Progress Note Date: 02/18/24 Principal diagnosis: Reason for follow-up with MSSA bacteremia Patient is a 78-year-old male with a past medical his significant for diabetes mellitus hypertension hyperlipidemia atrial fibrillation history of end-stage renal disease on dialysis through left arm AV graft patient has been brought into the hospital for fever weakness and did have bacteremia. On today's evaluation that is 02/18/2024, the patient continues to be afebrile, the patient is on 2 L nasal cannula oxygen and breathing comfortably, the Pt denies having any chest pain or cough, the patient denies having any abdominal pain no vomiting or any diarrhea has been reported by the nursing staff denies pain to the left arm AV fistula site. Patient white count slightly up to 12.5 today creatinine is 3.57 blood culture repeat pending Objective - Vital Signs Vital signs: Vital Signs Temp 98.4 F 02/18/24 07:45 Pulse 80 02/18/24 07:45 Resp 18 02/18/24 07:45 BP 96/55 02/18/24 07:45 Pulse Ox 98 02/18/24 07:45 FiO2 30 02/17/24 04:15 Intake & Output 02/17/24 02/18/24 02/18/24 18:59 06:59 18:59 Intake Total 590 120 Output Total 2620 35 0 Balance -2029 120 Weight 64.5 kg Intake: IV 90 0.9 KVO 90 Oral 120 Hemodialysis 500 Output: Gastric Drainage 0 Urine 120 35 0 Stool 0 Urine/Stool Mix 0 Emesis 0 Oral Regurgitation 0 Hemodialysis 2500 Other 0 Other: Voiding Method Indwelling Catheter Indwelling Catheter Indwelling Catheter # Voids 0 # Bowel Movements 0 - Exam GENERAL DESCRIPTION: An elderly male up in the chair in no distress RESPIRATORY SYSTEM: Unlabored breathing , decreased breath sounds at bases HEART: S1 S2 regular rate and rhythm , ABDOMEN: Soft , no tenderness EXTREMITIES: No edema feet - Labs CBC & Chem 7: 02/18/24 09:27 02/18/24 09:27 Labs: Abnormal Lab Results - Last 24 Hours (Table) 02/17/24 02/17/24 02/17/24 Range/Units 05:57 11:18 17:08 WBC (3.8-10.6) k/uL RBC (4.30-5.90) m/uL Hgb (13.0-17.5) gm/dL Hct (39.0-53.0) % RDW (11.5-15.5) % Plt Count (150-450) k/uL Neutrophils # (1.3-7.7) k/uL Lymphocytes # (1.0-4.8) k/uL PT (10.0-12.5) sec INR (<1.2) Sodium (137-145) mmol/L BUN (9-20) mg/dL Creatinine (0.66-1.25) mg/dL Glucose (74-99) mg/dL POC Glucose (mg/dL) 199 H 174 H (70-110) mg/dL Calcium (8.4-10.2) mg/dL Iron 26 L (65-175) UG/DL TIBC 162 L (228-460) UG/DL Transferrin 116.0 L (204.0-354.0) mg/dL Ferritin 3396.0 H (22.0-322.0) ng/mL 02/17/24 02/18/24 02/18/24 Range/Units 20:38 06:21 09:06 WBC (3.8-10.6) k/uL RBC (4.30-5.90) m/uL Hgb (13.0-17.5) gm/dL Hct (39.0-53.0) % RDW (11.5-15.5) % Plt Count (150-450) k/uL Neutrophils # (1.3-7.7) k/uL Lymphocytes # (1.0-4.8) k/uL PT 16.8 H (10.0-12.5) sec INR 1.6 H (<1.2) Sodium (137-145) mmol/L BUN (9-20) mg/dL Creatinine (0.66-1.25) mg/dL Glucose (74-99) mg/dL POC Glucose (mg/dL) 187 H 176 H (70-110) mg/dL Calcium (8.4-10.2) mg/dL Iron (65-175) UG/DL TIBC (228-460) UG/DL Transferrin (204.0-354.0) mg/dL Ferritin (22.0-322.0) ng/mL 02/18/24 02/18/24 Range/Units 09:27 09:27 WBC 12.5 H (3.8-10.6) k/uL RBC 2.96 L (4.30-5.90) m/uL Hgb 9.3 L (13.0-17.5) gm/dL Hct 28.7 L (39.0-53.0) % RDW 15.6 H (11.5-15.5) % Plt Count 106 L (150-450) k/uL Neutrophils # 10.8 H (1.3-7.7) k/uL Lymphocytes # 0.7 L (1.0-4.8) k/uL PT (10.0-12.5) sec INR (<1.2) Sodium 132 L (137-145) mmol/L BUN 58 H (9-20) mg/dL Creatinine 3.57 H (0.66-1.25) mg/dL Glucose 177 H (74-99) mg/dL POC Glucose (mg/dL) (70-110) mg/dL Calcium 7.6 L (8.4-10.2) mg/dL Iron (65-175) UG/DL TIBC (228-460) UG/DL Transferrin (204.0-354.0) mg/dL Ferritin (22.0-322.0) ng/mL Microbiology - Last 24 Hours (Table) 02/15/24 17:56 Blood Culture Gram Stain - Preliminary Blood Blood Culture - Preliminary Presumptive Staph aureus 02/15/24 18:06 Blood Culture Gram Stain - Preliminary Blood Blood Culture - Preliminary Presumptive Staph aureus Molecular ID Assessment and Plan (1) Leukocytosis Current Visit: Yes Status: Acute Code(s): D72.829 - ELEVATED WHITE BLOOD CELL COUNT, UNSPECIFIED SNOMED Code(s): 036464449 (2) MSSA bacteremia Current Visit: Yes Status: Acute Code(s): R78.81 - BACTEREMIA; B95.61 - METHICILLIN SUSCEP STAPH INFCT CAUSING DIS CLASSD ELSWHR SNOMED Code(s): 472590210 Plan: 1patient with MSSA bacteremia in this patient who do have a history of renal failure with on hemodialysis with a left arm fistula site with presentation to the hospital with weakness fall and urinary frequency however UA is negative abdominal soft no significant respiratory symptoms or hypoxemia question of possible related to the fistula site which was nonfunctioning and did have angiogram and angioplasty done this admission. 2blood cultures has been repeated to document clearance of his bacteremia and are pending so far 3-patient to continue with cefazolin, will be able to continue with antibiotic through the dialysis so no need for major PICC line placement discussed with nephrology Dictation was produced using [email or web address] dictation software. please excuse any grammatical, word or spelling errors. Time with Patient: Less than 30
[2024-02-18 16:17] LABS: Glucose,Whole Blood 306 mg/dL (70-110)
[2024-02-18] MEDS: WARFARIN 2 MG TAB PO ONE (17:00)
--- NOTE | 2024-02-18 17:54 | P.PN ---
Subjective Progress Note Date: 02/18/24 (delayed charting seen at 1240) Patient is a 78-year-old male with with known diabetes, atrial fibrillation anticoagulated with Coumadin, prior aortic valve replacement, dyslipidemia, end- stage renal disease on hemodialysis Thursday/Thursday/Thursday, and BPH who presented to the emergency department due to confusion and weakness. He had previously been to [facility] where he was noted to have a fever and elevated heart rate he was then discharged from the emergency department. When he went to go to dialysis they terminated after 1 hour due to a fever. On arrival to the emergency department he was noted to be febrile to 104.1 with a heart rate of 140. Initial laboratory analysis was remarkable for white blood cell count 19.4, platelets 131, lactic acid 2.6, troponin 0.12, and renal function consistent with his known dialysis. Influenza A/B/RSV/COVID-19 testing was negative. Initial chest x-ray demonstrated pulmonary vascular congestion. Patient was admitted for sepsis of unknown etiology and A-fib with RVR. He was to started on vancomycin and cefepime as well as a Cardizem drip. Critical care and cardiology were consulted. Echocardiogram was performed which demon strated ejection fraction of 40 to 45% with mild to moderate perivalvular leak of his aortic valve replacement. Vascular surgery was consulted as his dialysis access is not working. And on 02/15 he underwent left upper extremity fistulogram with transluminal ballooning and thrombolysis at proximal aspect of graft. He then underwent hemodialysis and became slightly hypotensive requiring initiation of norepinephrine. He was subsequently transferred to the ICU. He had 3 bowel movements overnight on 02/15. His hemoglobin stabilized and he had a recent outpatient colonoscopy without active bleeding. Patient seen and examined at bedside. Patient seen and examined at bedside with present. He is doing well today and is feeling better. He denies any chest pain or shortness of breath. He is not having any pain in his left arm. Vital signs reviewed General: [nontoxic], [no distress], [appears at stated age] Cardiovascular: [S1S2 reg], [no murmur] Lungs: [CTA bilateral], [no rhonchi, no rales] , [no accessory muscle use] Abdominal: [soft], [ nontender to palpation], [no guarding] Ext: [no gross muscle atrophy], [no edema b/l lower extremities], [no contractures] Neuro: [ CN II-XI grossly intact], [no focal neuro deficits] Psych: [Alert], [oriented], [appropriate affect] Assessment/Plan: MSSA bacteremia with sepsis -Likely related to dialysis access -Infectious disease note reviewed: Discontinue Vanco and cefepime, started on cefazolin as patient has MSSA bacteremia -Cefazolin 2 g IV piggyback every 12 hours day #3 -Repeat blood cultures negative for 24 hours -Infectious disease note reviewed: Continue with cefazolin, no need for PICC line as it will go with dialysis. End-stage renal disease on hemodialysis Thursday/Thursday/Thursday Malfunction AV graft- s/p angioplasty/thrombolysis of left subclavian vein -Case discussed with Dr. Serra. Once bacteremia is improved plan will be for IV antibiotics with hemodialysis on Thursday/Thursday/Thursday - Vascular note reviewed: HD as tolerated, follow-up with vascular surgeon at [facility]. Melena, possible lower GI bleed. Normocytic anemia, probable acute blood loss with chronic renal disease - Serial hemoglobin - Hold Coumadin today - GI note reviewed: Continue with Protonix for GI prophylaxis, diet as tolerated, recent colonoscopy with no active bleeding but positive occult stool. No plans for repeat endoscopic evaluation. - no indication for transfusion Acute exacerbation of systolic congestive heart failure with ejection fraction 40 to 45% Atrial fibrillation with rapid ventricular response anticoagulated with coumadin Type II non-STEMI Dyslipidemia Bioprosthetic aortic valve -Cardiology note reviewed: Resume Coumadin. -Pulmonary note reviewed: Patient improved. -Lipitor 10 mg at night -Metoprolol 25 mg oral 3 times daily Thrombocytopenia - unkown if acute of chronic - continue to follow CBC - no indication for transfusion Diabetes mellitus type 2 with hyperglycemia -At home patient takes Lantus 45 units at night and Alogliptin -A1c 8.8 -Increase Levemir 24 units at night, add fixed dose NovoLog 2 units with each meal to start morning of 02/18, continue with sliding scale insulin. BPH Imaging: Chest x-ray is reviewed by myself shows increased pulmonary vascular congestion Data Review: Labs reviewed from today include CBC, INR, and basic metabolic profile which demonstrate white blood cell count 12.5, hemoglobin 9.3, platelets 106, sodium 132, BUN 58, creatinine 3.57 (consistent with his known chronic kidney disease). Iron stores appear normal. Repeat blood cultures negative for 24 hours. DVT prophylaxis: SCD Anticipated discharge date: Pending clinical course Anticipated discharge place: Pending clinical course This dictation was prepared using [employer] voice recognition software. Though every attempt is made to correct errors during dictation some may still exist. Objective - Vital Signs Vital signs: Vital Signs Temp 98.2 F 02/18/24 15:41 Pulse 78 02/18/24 15:41 Resp 20 02/18/24 15:41 BP 113/66 02/18/24 15:41 Pulse Ox 99 02/18/24 15:41 FiO2 30 02/17/24 04:15 Intake & Output 02/17/24 02/18/24 02/18/24 18:59 06:59 18:59 Intake Total 590 240 Output Total 2620 35 0 Balance -2030 -35 240 Weight 64.5 kg Intake: IV 90 0.9 KVO 90 Oral 240 Hemodialysis 500 Output: Gastric Drainage 0 Urine 120 35 0 Stool 0 Urine/Stool Mix 0 Emesis 0 Oral Regurgitation 0 Hemodialysis 2500 Other 0 Other: Voiding Method Indwelling Catheter Indwelling Catheter Indwelling Catheter # Voids 0 # Bowel Movements 0 - Labs CBC & Chem 7: 02/18/24 09:27 02/18/24 09:27 Labs: Abnormal Lab Results - Last 24 Hours (Table) 02/17/24 02/17/24 02/18/24 Range/Units 05:57 20:38 06:21 WBC (3.8-10.6) k/uL RBC (4.30-5.90) m/uL Hgb (13.0-17.5) gm/dL Hct (39.0-53.0) % RDW (11.5-15.5) % Plt Count (150-450) k/uL Neutrophils # (1.3-7.7) k/uL Lymphocytes # (1.0-4.8) k/uL PT (10.0-12.5) sec INR (<1.2) Sodium (137-145) mmol/L BUN (9-20) mg/dL Creatinine (0.66-1.25) mg/dL Glucose (74-99) mg/dL POC Glucose (mg/dL) 187 H 176 H (70-110) mg/dL Calcium (8.4-10.2) mg/dL Iron 26 L (65-175) UG/DL TIBC 162 L (228-460) UG/DL Transferrin 116.0 L (204.0-354.0) mg/dL Ferritin 3396.0 H (22.0-322.0) ng/mL 02/18/24 02/18/24 02/18/24 Range/Units 09:06 09:27 09:27 WBC 12.5 H (3.8-10.6) k/uL RBC 2.96 L (4.30-5.90) m/uL Hgb 9.3 L (13.0-17.5) gm/dL Hct 28.7 L (39.0-53.0) % RDW 15.6 H (11.5-15.5) % Plt Count 106 L (150-450) k/uL Neutrophils # 10.8 H (1.3-7.7) k/uL Lymphocytes # 0.7 L (1.0-4.8) k/uL PT 16.8 H (10.0-12.5) sec INR 1.6 H (<1.2) Sodium 132 L (137-145) mmol/L BUN 58 H (9-20) mg/dL Creatinine 3.57 H (0.66-1.25) mg/dL Glucose 177 H (74-99) mg/dL POC Glucose (mg/dL) (70-110) mg/dL Calcium 7.6 L (8.4-10.2) mg/dL Iron (65-175) UG/DL TIBC (228-460) UG/DL Transferrin (204.0-354.0) mg/dL Ferritin (22.0-322.0) ng/mL 02/18/24 02/18/24 Range/Units 11:33 16:16 WBC (3.8-10.6) k/uL RBC (4.30-5.90) m/uL Hgb (13.0-17.5) gm/dL Hct (39.0-53.0) % RDW (11.5-15.5) % Plt Count (150-450) k/uL Neutrophils # (1.3-7.7) k/uL Lymphocytes # (1.0-4.8) k/uL PT (10.0-12.5) sec INR (<1.2) Sodium (137-145) mmol/L BUN (9-20) mg/dL Creatinine (0.66-1.25) mg/dL Glucose (74-99) mg/dL POC Glucose (mg/dL) 233 H 306 H (70-110) mg/dL Calcium (8.4-10.2) mg/dL Iron (65-175) UG/DL TIBC (228-460) UG/DL Transferrin (204.0-354.0) mg/dL Ferritin (22.0-322.0) ng/mL Microbiology - Last 24 Hours (Table) 02/17/24 06:08 Blood Culture - Preliminary Blood 02/15/24 17:56 Blood Culture Gram Stain - Final Blood Blood Culture - Final Staphylococcus aureus 02/15/24 18:06 Blood Culture Gram Stain - Final Blood Blood Culture - Final Staphylococcus aureus Molecular ID
[2024-02-18 19:54] LABS: Glucose,Whole Blood 215 mg/dL (70-110)
[2024-02-18] MEDS: INSULIN DETEMIR (LEVEMIR) 100 UNIT/ML SYR SQ SCH (20:53)
[2024-02-19 06:04] LABS: Glucose,Whole Blood 99 mg/dL (70-110)
[2024-02-19] MEDS: INSULIN ASPART (NovoLOG) 100 UNIT/ML VIAL SQ SCH (06:31)
[2024-02-19 09:42] LABS: HCT 27.4 % (39.0-53.0); HGB 8.9 gm/dL (13.0-17.5); MCHC 32.5 g/dL (31.0-37.0); MCV 95.5 fL (80.0-100.0); Mean Platelet Volume 10.2; RBC 2.87 m/uL (4.30-5.90); RDW 15.6 % (11.5-15.5); WBC 12.4 k/uL (3.8-10.6)
[2024-02-19 09:44] LABS: Platelet Count 94 k/uL (150-450)
[2024-02-19 09:55] LABS: Prothrombin Time 20.5 sec (10.0-12.5)
[2024-02-19 10:09] LABS: African American GFR (CKD) 13 (>60 ml/min/1.73 sqM); Anion Gap 10 mmol/L; Blood Urea Nitrogen 84 mg/dL (9-20); Calcium 7.7 mg/dL (8.4-10.2); Carbon Dioxide 24 mmol/L (22-30); Chloride 98 mmol/L (98-107); Glucose 66 mg/dL (74-99); Non-African American GFR(CKD) 11 (>60 ml/min/1.73 sqM); Potassium 3.7 mmol/L (3.5-5.1); Sodium 132 mmol/L (137-145)
--- NOTE | 2024-02-19 10:56 | P.PN ---
Subjective Patient is seen for follow-up for end-stage renal disease. patient is seen on hemodialysis. Tolerating treatment well. no significant complaints today. Objective - Vital Signs Vital signs: Vital Signs Temp 98.4 F 02/19/24 07:56 Pulse 82 02/19/24 07:56 Resp 17 02/19/24 07:56 BP 122/73 02/19/24 07:56 Pulse Ox 98 02/19/24 07:56 FiO2 30 02/17/24 04:15 Intake & Output 02/18/24 02/19/24 02/19/24 18:59 06:59 18:59 Intake Total 360 Output Total 190 100 Balance 170 -100 Weight 87 kg Intake: Oral 360 Output: Gastric Drainage 0 Urine 190 100 Stool 0 Urine/Stool Mix 0 Emesis 0 Oral Regurgitation 0 Other 0 Other: Voiding Method Indwelling Catheter Indwelling Catheter Indwelling Catheter # Voids 0 # Bowel Movements 0 - Exam patient is awake, comfortable, no acute distress. Examination of the heart S1 and S2 Examination of the lungs bilateral breath sounds are heard decreased breath sounds at the bases Abdomen is soft nontender Examination of lower extremities shows no significant edema. [employer] exam grossly intact - Labs CBC & Chem 7: 02/19/24 08:24 02/19/24 08:24 Labs: Abnormal Lab Results - Last 24 Hours (Table) 02/18/24 02/18/24 02/18/24 Range/Units 11:33 16:16 19:52 WBC (3.8-10.6) k/uL RBC (4.30-5.90) m/uL Hgb (13.0-17.5) gm/dL Hct (39.0-53.0) % RDW (11.5-15.5) % Plt Count (150-450) k/uL PT (10.0-12.5) sec INR (<1.2) Sodium (137-145) mmol/L BUN (9-20) mg/dL Creatinine (0.66-1.25) mg/dL Glucose (74-99) mg/dL POC Glucose (mg/dL) 233 H 306 H 215 H (70-110) mg/dL Calcium (8.4-10.2) mg/dL 02/19/24 02/19/24 02/19/24 Range/Units 08:24 08:24 08:24 WBC 12.4 H (3.8-10.6) k/uL RBC 2.87 L (4.30-5.90) m/uL Hgb 8.9 L (13.0-17.5) gm/dL Hct 27.4 L (39.0-53.0) % RDW 15.6 H (11.5-15.5) % Plt Count 94 L (150-450) k/uL PT 20.5 H (10.0-12.5) sec INR 2.0 H (<1.2) Sodium 132 L (137-145) mmol/L BUN 84 H (9-20) mg/dL Creatinine 4.74 H (0.66-1.25) mg/dL Glucose 66 L (74-99) mg/dL POC Glucose (mg/dL) (70-110) mg/dL Calcium 7.7 L (8.4-10.2) mg/dL Microbiology - Last 24 Hours (Table) 02/17/24 06:08 Blood Culture Gram Stain - Preliminary Blood Blood Culture - Preliminary Presumptive Staph aureus Molecular ID 02/15/24 17:56 Blood Culture Gram Stain - Final Blood Blood Culture - Final Staphylococcus aureus 02/15/24 18:06 Blood Culture Gram Stain - Final Blood Blood Culture - Final Staphylococcus aureus Molecular ID Assessment and Plan Assessment: 1. End-stage renal disease on hemodialysis on a Thursday schedule via left arm AV graft. AV graft is functional. Status post fistulogram and angioplasty 02/16/2024 2. A. fib with RVR status post Cardizem drip 3. Fever, maintained on empiric antibiotics. Blood cultures are growing staph aureus. Chest x-ray does not show significant pneumonia. 4. Volume overload 5. Acute hypoxic respiratory failure secondary to volume overload, improved. 6. Staph aureus bacteremia status post vancomycin. Being followed by ID. blood cultures from 02/17/2024 still positive. Plan: hemodialysis on a Thursday schedule. Continue with IV antibiotics. Consider TREY if bacteremia persists. No evidence of edema noted at the site of the AV graft.
--- NOTE | 2024-02-19 11:29 | P.PN ---
Progress Note - Text Progress Note Date: 02/19/24 HPI: This gentleman has history of Staph aureus bacteremia, end-stage renal disease on hemodialysis, probably chronic persistent atrial fibrillation and he also has a history of aortic valve replacement by percutaneous approach in July at the [facility]. He is currently on antibiotics and dialysis is in progress. A-fib rate is controlled he is also on anticoagulation that has been resumed INR is 1.6 Coumadin has been resumed. Physical exam revealed vital signs stable S1-S2 with a regular and rhythm noted short systolic murmur at the base is audible second heart sound is preserved lungs reveal decent air entry abdomen is soft the lower extremities reveal diminished pulses central nervous system grossly no focal deficits. I am suggesting that we can resume the Coumadin and the goal is to keep the INR between 2.5 and 3.5. This can be adjusted by the hospitalist. No new suggestions from a cardiac standpoint rate control is optimal. His bacteremia is being addressed by IV antibiotics. Upon discharge patient will follow-up at the [facility] and [facility]. We will see him as needed.. PHYSICIAL EXAM:. IMPRESSION: 1.. 2.. 3.. 4.. 5.. RECOMMENDATIONS:.
[2024-02-19 11:31] LABS: Glucose,Whole Blood 93 mg/dL (70-110)
--- NOTE | 2024-02-19 11:37 | P.PN ---
Subjective Progress Note Date: 02/19/24 Principal diagnosis: Shortness of breath. Patient is a 78-year-old male with past medical history significant for atrial fibrillation anticoagulated on Coumadin, previous TAVR, hyperlipidemia, diabetes mellitus, end-stage renal disease receiving hemodialysis (Thursday, Thursday, Thursday schedule), obstructive sleep apnea with home BiPAP. Patient is technically a poor historian. Prior to coming in, patient was noted to be severely weak and somewhat confused by his . He did reportedly have a assisted fall from bed earlier in the week. I believe he was briefly evaluated by [facility]. Thursday, the patient was reportedly at the hemodialysis center. He was noted to have an elevated heart rate. Hemodialysis was terminated. Subsequently, he was brought into the emergency room for further evaluation on 02/15/2024. Heart rhythm on arrival was atrial fibrillation with rapid ventricular rate of 157 bpm. He was originally started on a Cardizem infusion which is currently off. He was also noted to be febrile. While in the emergency room, his left upper extremity AV graft was noted to be malfunctioning. Yesterday, 02/16/2024, he did undergo a left upper extremity fistulogram with ultrasound-guided access, percutaneous transluminal balloon angioplasty of the left subclavian vein, and thrombolysis at the proximal aspect of the graft. During the procedure, he developed some respiratory distress. He did receive 60 mg of IV Lasix. Patient reportedly still produces limited amounts of urine. Chest x-ray during these events showed worsening bilateral interstitial infiltrates concerning for interstitial edema versus atypical pneumonia. Negative for influenza, RSV, COVID. Considering patient's clinical presentation, favoring fluid overload. Patient was then transferred to the intensive care unit on BiPAP support with pressure settings of 10/5 and FiO2 of 60%. ABGs done on the settings included a PaO2 of 94, pCO2 of 42, pH of 7.39. FiO2 was then weaned down to 40%. It appears they were able to get his AV graft working, and patient just received stat hemodialysis. A total of 950 mL was removed. During hemodialysis, patient became hypotensive requiring the initiation of low-dose norepinephrine which is infusing at 0.03 mcg/kg/min. He art rhythm remains atrial fibrillation, but now with a controlled ventricular response. He is currently lying in bed, on 2 L/min nasal cannula, in no acute distress. SpO2 is 98%. BiPAP is on standby. He is oriented x 3, but a poor historian. His short-term memory of events leading to his hospitalization are limited. no focal deficits. He denies any specific complaints. Shortness of breath is reportedly improved. Denies cough, sputum production, chest pain. Denies any heart palpitations or lower extremity swelling. Denies nausea, vomiting, diarrhea, abdominal pain. Patient was having frequent small amounts of urination at home. Otherwise no urinary complaints. No observable wounds. Preliminary blood cultures show gram-positive cocci in clusters. He is covered on pharmacy to dose vancomycin. Also, empirically started on cefepime. Most recent CBC from yesterday includes a WBC count of 17.4, hemoglobin 9.8, hematocrit 29.4, platelets 92. No overt signs of bleeding noted. INR 2.2 on arrival. Chronically anticoagulated on warfarin. BMP from yesterday includes: Sodium 136, potassium 3.5, chloride 101, serum bicarb 26, BUN 87, creatinine 4.79, glucose 213. Urinalysis not concerning for UTI. Lactic acid level was 2.6 down to 1.3. Troponins also elevated at 0.171, 0.203, and 0.26 respectively. Possibly supply/demand mismatch and in the setting of renal failure. Initial EKG showed A-fib RVR with a left bundle branch block, rate was noted at 157 bpm. Patient has had follow-up echocardiogram which estimated a moderately impaired left ventricular systolic function 40 to 45%, TAVR valve noted with mild to moderate perivalvular regurgitation. Patient is being m onitored closely in intensive care unit. Progress note dated February 18, 2024. This is a 78-year-old male that we actually initially brought down into the intensive care unit, because of impending respiratory failure, from missed hemodialysis, secondary to a clotted AV fistula. Anyway, the patient was seen by vascular surgery, and the AV fistula was made to be functional, the patient did receive emergent hemodialysis, which prevented or precluded intubation and mechanical ventilation. The patient is seen today in room 361. He is on saline at 10 cc an hour, and nasal O2 at 2 L. He says he did use the BiPAP last night, with settings of 10/5 and 30%. His respiratory status is much improved. Current labs include a white count 12.5, hemoglobin 9.3, hematocrit 28.7, and a platelet count of 106,000. PT 16.8 INR 1.6. Sodium 132, potassium 3.7, chloride 98, CO2 26, BUN 58, creatinine 3.57. Calcium is 7.6. Blood cultures are showing presumptive Staph aureus. Chest x-ray, compared to the one the day before, shows significant improvement. Progress note dated February 19, 2024. 78-year-old male seen in room 366. Patient is doing well. He is currently on 3 L of oxygen. He is not receiving any IV fluids. Clinically, his respiratory status is stable. He continues on Ancef. The rest of his medications are reviewed. Laboratory data includes a white count of 12.4, hemoglobin 8.9, hem atocrit 27.4, and platelet count of 94,000. PT 20.5, INR 2.0. Sodium 132, potassium 3.7, chlorides 98, CO2 24, BUN 84, creatinine 4.74. Glucose is 66. Calcium is 7.7. Blood cultures were positive for oxacillin sensitive Staph aureus. Chest x-ray from February 17 shows evidence of cardiomegaly, and mild pulmonary vascular congestion. Objective - Vital Signs Vital signs: Vital Signs Temp 98.2 F 02/19/24 11:07 Pulse 71 02/19/24 11:07 Resp 16 02/19/24 11:07 BP 109/67 02/19/24 11:07 Pulse Ox 98 02/19/24 11:07 FiO2 30 02/17/24 04:15 Intake & Output 02/18/24 02/19/24 02/19/24 18:59 06:59 18:59 Intake Total 360 Output Total 190 100 Balance 170 -100 Weight 87 kg Intake: Oral 360 Output: Gastric Drainage 0 Urine 190 100 Stool 0 Urine/Stool Mix 0 Emesis 0 Oral Regurgitation 0 Other 0 Other: Voiding Method Indwelling Catheter Indwelling Catheter Indwelling Catheter # Voids 0 # Bowel Movements 0 - Exam No acute distress, oriented 3. The patient is currently on 2 L nasal cannula. No respiratory distress, or use of accessory muscles. HEENT examination is grossly unremarkable. Mucous membranes are moist. No oral lesions. Neck supple. Full range of motion. No adenopathy thyromegaly or neck vein distention. Cardiovascular examination reveals regular rhythm rate. S1-S2 normal. No S3 or S4. No discernible murmur noted. Heart sounds distant. Heart rate 71 bpm. Lungs reveal mild bibasilar crackles. No wheezes or rhonchi. 2 L saturation is 98 percent. Breath sounds are equal bilaterally. Abdomen soft bowel sounds are heard. No masses or tenderness. Extremities are intact. No cyanosis clubbing or edema. Skin is without rash or lesion. Neurologic examination is brief but nonfocal. - Labs CBC & Chem 7: 02/19/24 08:24 02/19/24 08:24 Labs: Abnormal Lab Results - Last 24 Hours (Table) 02/18/24 02/18/24 02/18/24 Range/Units 11:33 16:16 19:52 WBC (3.8-10.6) k/uL RBC (4.30-5.90) m/uL Hgb (13.0-17.5) gm/dL Hct (39.0-53.0) % RDW (11.5-15.5) % Plt Count (150-450) k/uL PT (10.0-12.5) sec INR (<1.2) Sodium (137-145) mmol/L BUN (9-20) mg/dL Creatinine (0.66-1.25) mg/dL Glucose (74-99) mg/dL POC Glucose (mg/dL) 233 H 306 H 215 H (70-110) mg/dL Calcium (8.4-10.2) mg/dL 02/19/24 02/19/24 02/19/24 Range/Units 08:24 08:24 08:24 WBC 12.4 H (3.8-10.6) k/uL RBC 2.87 L (4.30-5.90) m/uL Hgb 8.9 L (13.0-17.5) gm/dL Hct 27.4 L (39.0-53.0) % RDW 15.6 H (11.5-15.5) % Plt Count 94 L (150-450) k/uL PT 20.5 H (10.0-12.5) sec INR 2.0 H (<1.2) Sodium 132 L (137-145) mmol/L BUN 84 H (9-20) mg/dL Creatinine 4.74 H (0.66-1.25) mg/dL Glucose 66 L (74-99) mg/dL POC Glucose (mg/dL) (70-110) mg/dL Calcium 7.7 L (8.4-10.2) mg/dL Microbiology - Last 24 Hours (Table) 02/17/24 06:08 Blood Culture Gram Stain - Preliminary Blood Blood Culture - Preliminary Presumptive Staph aureus Molecular ID 02/15/24 17:56 Blood Culture Gram Stain - Final Blood Blood Culture - Final Staphylococcus aureus 02/15/24 18:06 Blood Culture Gram Stain - Final Blood Blood Culture - Final Staphylococcus aureus Molecular ID Assessment and Plan Assessment: Acute hypoxemic respiratory failure, likely secondary to a combination of fluid overload and acute systolic CHF exacerbation. End-stage renal disease, receiving hemodialysis on a Thursday, Thursday, Thursday schedule. Atrial fibrillation with rapid ventricular response. Bacteremia and sepsis, secondary to presumptive Staphylococcus aureus. Hypotension and shock. Acute febrile illness. Altered mental status, possibly explained by acute metabolic encephalopathy and sepsis. Acute leukocytosis. Thrombocytopenia. Anemia of chronic disease, secondary to end-stage renal disease. Elevated troponins, suspect supply/demand mismatch. History of TAVR. History of hyperlipidemia. Obesity, with a BMI of 33.5 kg/m. Obstructive sleep apnea, with home BiPAP device. Former tobacco smoker. Plan: Plan dated February 18, 2024. I am happy to report that the patient is doing much better. He did use BiPAP last night with settings of 10/5, 30%. Currently he is getting saline at 10 cc an hour, and oxygen by nasal cannula at 2 L. We will continue to follow the patient, make recommendations along the way. The patient's overall prognosis remains guarded. Labs, x-rays, and medications are reviewed. Plan dated February 19, 2024. The patient is doing much better. He is currently on 2 L. He continues on Ancef, for the oxacillin sensitive Staphylococcus aureus in his bloodstream. Labs, x-rays, and medications are reviewed. He denies any respiratory issues such as shortness of breath, cough, wheezing, chest tightness, or phlegm production. We will continue to follow the patient, and make recommendations. Prognosis is certainly guarded. Time with Patient: Less than 30
--- NOTE | 2024-02-19 13:00 | P.PN ---
Subjective Progress Note Date: 02/19/24 Patient is a 78-year-old male with with known diabetes, atrial fibrillation anticoagulated with Coumadin, prior aortic valve replacement, dyslipidemia, end- stage renal disease on hemodialysis Thursday/Thursday/Thursday, and BPH who presented to the emergency department due to confusion and weakness. He had previously been to [facility] where he was noted to have a fever and elevated heart rate he was then discharged from the emergency department. When he went to go to dialysis they terminated after 1 hour due to a fever. On arrival to the emergency department he was noted to be febrile to 104.1 with a heart rate of 140. Initial laboratory analysis was remarkable for white blood cell count 19.4, platelets 131, lactic acid 2.6, troponin 0.12, and renal function consistent with his known dialysis. Influenza A/B/RSV/COVID-19 testing was negative. Initial chest x-ray demonstrated pulmonary vascular congestion. Patient was admitted for sepsis of unknown etiology and A-fib with RVR. He was to started on vancomycin and cefepime as well as a Cardizem drip. Critical care and cardiology were consulted. Echocardiogram was performed which demonstrated ejection fraction of 40 to 45% with mild to moderate perivalvular leak of his aortic valve replacement. Vascular surgery was consulted as his dialysis access is not working. And on 02/15 he underwent left upper extremity fistulogram with transluminal ballooning and thrombolysis at proximal aspect of graft. He then underwent hemodialysis and became slightly hypotensive requiring initiation of norepinephrine. He was subsequently transferred to the ICU. He had 3 bowel movements overnight on 02/15. His hemoglobin stabilized and he had a recent outpatient colonoscopy without active bleeding. Patient seen and examined at bedside. Patient seen and examined at bedside with present. He is doing well today and is feeling better. He denies any chest pain or shortness of breath. He is not having any pain in his left arm. Vital signs reviewed General: [nontoxic], [no distress], [appears at stated age] Cardiovascular: [S1S2 reg], [no murmur] Lungs: [CTA bilateral], [no rhonchi, no rales] , [no accessory muscle use] Abdominal: [soft], [ nontender to palpation], [no guarding] Ext: [no gross muscle atrophy], [no edema b/l lower extremities], [no contractures] Neuro: [ CN II-XI grossly intact], [no focal neuro deficits] Psych: [Alert], [oriented], [appropriate affect] Assessment/Plan: MSSA bacteremia with sepsis -Likely related to dialysis access -Continue with cefazolin day 4 -Patient's last cultures done on 02/17/2024 are positive -Will obtain repeat blood cultures today -Infectious disease note reviewed: Continue with cefazolin, no need for PICC line as it will go with dialysis. End-stage renal disease on hemodialysis Thursday/Thursday/Thursday Malfunction AV graft- s/p angioplasty/thrombolysis of left subclavian vein -Case discussed with Dr. Serra. Once bacteremia is improved plan will be for IV antibiotics with hemodialysis on Thursday/Thursday/Thursday - Vascular note reviewed: HD as tolerated, follow-up with vascular surgeon at [facility] Melena, possible lower GI bleed. Normocytic anemia, probable acute blood loss with chronic renal disease - Serial hemoglobin - Hold Coumadin today - GI note reviewed: Continue with Protonix for GI prophylaxis, diet as tolerated, recent colonoscopy with no active bleeding but positive occult stool. No plans for repeat endoscopic evaluation. - no indication for transfusion Acute exacerbation of systolic congestive heart failure with ejection fraction 40 to 45% Atrial fibrillation with rapid ventricular response anticoagulated with coumadin Type II non-STEMI Dyslipidemia Bioprosthetic aortic valve -Cardiology note reviewed: Resume Coumadin. -Lipitor 10 mg at night -Metoprolol 25 mg oral 3 times daily Thrombocytopenia - unkown if acute of chronic - continue to follow CBC - no indication for transfusion -Improving Diabetes mellitus type 2 with hyperglycemia -At home patient takes Lantus 45 units at night and Alogliptin -A1c 8.8 -Resume Levemir 24 units at night, add fixed dose NovoLog 2 units with each meal to start morning of 02/18, continue with sliding scale insulin. DVT prophylaxis: SCD Anticipated discharge date: Pending clinical course Anticipated discharge place: Pending clinical course Objective - Vital Signs Vital signs: Vital Signs Temp 98.2 F 02/19/24 11:07 Pulse 71 02/19/24 11:07 Resp 16 02/19/24 11:07 BP 109/67 02/19/24 11:07 Pulse Ox 98 02/19/24 11:07 FiO2 30 02/17/24 04:15 Intake & Output 02/18/24 02/19/24 02/19/24 18:59 06:59 18:59 Intake Total 360 Output Total 190 100 Balance 170 -100 Weight 87 kg Intake: Oral 360 Output: Gastric Drainage 0 Urine 190 100 Stool 0 Urine/Stool Mix 0 Emesis 0 Oral Regurgitation 0 Other 0 Other: Voiding Method Indwelling Catheter Indwelling Catheter Indwelling Catheter # Voids 0 # Bowel Movements 0 - Labs CBC & Chem 7: 02/19/24 08:24 02/19/24 08:24 Labs: Abnormal Lab Results - Last 24 Hours (Table) 02/18/24 02/18/24 02/19/24 Range/Units 16:16 19:52 08:24 WBC (3.8-10.6) k/uL RBC (4.30-5.90) m/uL Hgb (13.0-17.5) gm/dL Hct (39.0-53.0) % RDW (11.5-15.5) % Plt Count (150-450) k/uL PT 20.5 H (10.0-12.5) sec INR 2.0 H (<1.2) Sodium (137-145) mmol/L BUN (9-20) mg/dL Creatinine (0.66-1.25) mg/dL Glucose (74-99) mg/dL POC Glucose (mg/dL) 306 H 215 H (70-110) mg/dL Calcium (8.4-10.2) mg/dL 02/19/24 02/19/24 Range/Units 08:24 08:24 WBC 12.4 H (3.8-10.6) k/uL RBC 2.87 L (4.30-5.90) m/uL Hgb 8.9 L (13.0-17.5) gm/dL Hct 27.4 L (39.0-53.0) % RDW 15.6 H (11.5-15.5) % Plt Count 94 L (150-450) k/uL PT (10.0-12.5) sec INR (<1.2) Sodium 132 L (137-145) mmol/L BUN 84 H (9-20) mg/dL Creatinine 4.74 H (0.66-1.25) mg/dL Glucose 66 L (74-99) mg/dL POC Glucose (mg/dL) (70-110) mg/dL Calcium 7.7 L (8.4-10.2) mg/dL Microbiology - Last 24 Hours (Table) 02/17/24 06:08 Blood Culture Gram Stain - Preliminary Blood Blood Culture - Preliminary Presumptive Staph aureus Molecular ID 02/15/24 17:56 Blood Culture Gram Stain - Final Blood Blood Culture - Final Staphylococcus aureus 02/15/24 18:06 Blood Culture Gram Stain - Final Blood Blood Culture - Final Staphylococcus aureus Molecular ID
--- NOTE | 2024-02-19 15:46 | P.PN ---
Subjective Progress Note Date: 02/19/24 Principal diagnosis: Reason for follow-up with MSSA bacteremia Patient is a 78-year-old male with a past medical his significant for diabetes mellitus hypertension hyperlipidemia atrial fibrillation history of end-stage renal disease on dialysis through left arm AV graft patient has been brought into the hospital for fever weakness and did have bacteremia. On today's evaluation that is 02/19/2024, Patient did have a low-grade fever 100.8 last night the patient is afebrile since then patient is currently breathing comfortably on 2 L nasal cannula oxygen patient denies having any chest pain currently awaiting dialysis without any problem no vomiting or diarrhea has been reported. Patient white count is 12.4 INR is 2.0, creatinine is 4.74, blood culture 02/17/2024 also positive Objective - Vital Signs Vital signs: Vital Signs Temp 98.2 F 02/19/24 11:07 Pulse 71 02/19/24 11:07 Resp 16 02/19/24 11:07 BP 109/67 02/19/24 11:07 Pulse Ox 98 02/19/24 11:07 FiO2 30 02/17/24 04:15 Intake & Output 02/18/24 02/19/24 02/19/24 18:59 06:59 18:59 Intake Total 360 Output Total 190 100 Balance 170 -100 Weight 87 kg Intake: Oral 360 Output: Gastric Drainage 0 Urine 190 100 Stool 0 Urine/Stool Mix 0 Emesis 0 Oral Regurgitation 0 Other 0 Other: Voiding Method Indwelling Catheter Indwelling Catheter Indwelling Catheter # Voids 0 # Bowel Movements 0 - Exam GENERAL DESCRIPTION: An elderly male up in the chair in no distress RESPIRATORY SYSTEM: Unlabored breathing , decreased breath sounds at bases HEART: S1 S2 regular rate and rhythm , ABDOMEN: Soft , no tenderness EXTREMITIES: No edema feet - Labs CBC & Chem 7: 02/19/24 08:24 02/19/24 08:24 Labs: Abnormal Lab Results - Last 24 Hours (Table) 02/18/24 02/18/24 02/19/24 Range/Units 16:16 19:52 08:24 WBC (3.8-10.6) k/uL RBC (4.30-5.90) m/uL Hgb (13.0-17.5) gm/dL Hct (39.0-53.0) % RDW (11.5-15.5) % Plt Count (150-450) k/uL PT 20.5 H (10.0-12.5) sec INR 2.0 H (<1.2) Sodium (137-145) mmol/L BUN (9-20) mg/dL Creatinine (0.66-1.25) mg/dL Glucose (74-99) mg/dL POC Glucose (mg/dL) 306 H 215 H (70-110) mg/dL Calcium (8.4-10.2) mg/dL 02/19/24 02/19/24 Range/Units 08:24 08:24 WBC 12.4 H (3.8-10.6) k/uL RBC 2.87 L (4.30-5.90) m/uL Hgb 8.9 L (13.0-17.5) gm/dL Hct 27.4 L (39.0-53.0) % RDW 15.6 H (11.5-15.5) % Plt Count 94 L (150-450) k/uL PT (10.0-12.5) sec INR (<1.2) Sodium 132 L (137-145) mmol/L BUN 84 H (9-20) mg/dL Creatinine 4.74 H (0.66-1.25) mg/dL Glucose 66 L (74-99) mg/dL POC Glucose (mg/dL) (70-110) mg/dL Calcium 7.7 L (8.4-10.2) mg/dL Microbiology - Last 24 Hours (Table) 02/17/24 06:08 Blood Culture Gram Stain - Preliminary Blood Blood Culture - Preliminary Presumptive Staph aureus Molecular ID 02/15/24 17:56 Blood Culture Gram Stain - Final Blood Blood Culture - Final Staphylococcus aureus 02/15/24 18:06 Blood Culture Gram Stain - Final Blood Blood Culture - Final Staphylococcus aureus Molecular ID Assessment and Plan (1) Leukocytosis Current Visit: Yes Status: Acute Code(s): D72.829 - ELEVATED WHITE BLOOD SYD L COUNT, UNSPECIFIED SNOMED Code(s): 469835282 (2) MSSA bacteremia Current Visit: Yes Status: Acute Code(s): R78.81 - BACTEREMIA; B95.61 - METHICILLIN SUSCEP STAPH INFCT CAUSING DIS CLASSD [id number] SNOMED Code(s): 048295421 Plan: 1patient with MSSA bacteremia in this patient who do have a history of renal failure with on hemodialysis with a left arm fistula site with presentation to the hospital with weakness fall and urinary frequency however UA is negative abdominal soft no significant respiratory symptoms or hypoxemia question of possible related to the fistula site which was nonfunctioning and did have angio gram and angioplasty done this admission. 2blood cultures repeated 02/17/2024 came back positive we will obtain blood cultures today as well as tomorrow morning and if any persistent bacteremia will need workup to rule out endovascular source 3-patient to continue with cefazolin, and monitor clinical course closely Dictation was produced using [employer] dictation software. please excuse any grammatical, word or spelling errors. Time with Patient: Less than 30
[2024-02-19 16:52] LABS: Glucose,Whole Blood 194 mg/dL (70-110)
[2024-02-19] MEDS: WARFARIN 3 MG TAB PO ONE (17:02)
[2024-02-19 20:28] LABS: Glucose,Whole Blood 254 mg/dL (70-110)
[2024-02-20 06:17] LABS: Glucose,Whole Blood 210 mg/dL (70-110)
[2024-02-20 09:27] LABS: Basophils % (A) 0 %; Eosinophils # (A) 0.1 k/uL (0-0.7); Eosinophils % (A) 1 %; HCT 25.5 % (39.0-53.0); HGB 8.4 gm/dL (13.0-17.5); Lymphocytes # (A) 0.9 k/uL (1.0-4.8); Lymphocytes % (A) 7 %; MCH 31.6 pg (25.0-35.0); MCHC 33.1 g/dL (31.0-37.0); MCV 95.3 fL (80.0-100.0); Mean Platelet Volume 9.3; Monocytes # (A) 0.9 k/uL (0-1.0); Monocytes % (A) 7 %; Neutrophils # (A) 10.7 k/uL (1.3-7.7); Neutrophils % (A) 83 %; Platelet Count 116 k/uL (150-450); RBC 2.67 m/uL (4.30-5.90); RDW 15.7 % (11.5-15.5); WBC 12.9 k/uL (3.8-10.6)
[2024-02-20 09:37] LABS: INR 2.9 (<1.2); Prothrombin Time 28.2 sec (10.0-12.5)
[2024-02-20 09:42] LABS: African American GFR (CKD) 15 (>60 ml/min/1.73 sqM); Anion Gap 8 mmol/L; Blood Urea Nitrogen 63 mg/dL (9-20); Calcium 7.4 mg/dL (8.4-10.2); Carbon Dioxide 29 mmol/L (22-30); Chloride 96 mmol/L (98-107); Glucose 153 mg/dL (74-99); Non-African American GFR(CKD) 13 (>60 ml/min/1.73 sqM); Potassium 3.6 mmol/L (3.5-5.1); Sodium 133 mmol/L (137-145)
--- NOTE | 2024-02-20 10:58 | P.PN ---
Subjective Patient is seen for follow-up for end-stage renal disease. status post hemodialysis yesterday. blood cultures remain positive for MSSA. maintained on cefazolin. Objective - Vital Signs Vital signs: Vital Signs Temp 100.0 F H 02/20/24 09:11 Pulse 71 02/20/24 09:11 Resp 15 02/20/24 09:11 BP 128/62 02/20/24 09:11 Pulse Ox 98 02/20/24 09:11 FiO2 30 02/17/24 04:15 Intake & Output 02/19/24 02/20/24 02/20/24 18:59 06:59 18:59 Intake Total 400 10 Output Total 350 2400 Balance -350 -2000 10 Intake: IV 10 Invasive Line 4 10 Hemodialysis 400 Output: Urine 350 Hemodialysis 2400 Other: Voiding Method Indwelling Catheter Indwelling Catheter Indwelling Catheter - Exam patient is awake, comfortable, no acute distress. Examination of the heart S1 and S2 Examination of the lungs bilateral breath sounds are heard decreased breath sounds at the bases Abdomen is soft nontender Examination of lower extremities shows no significant edema. [employer] exam grossly intact - Labs CBC & Chem 7: 02/20/24 08:20 02/20/24 08:20 Labs: Abnormal Lab Results - Last 24 Hours (Table) 02/19/24 02/19/24 02/20/24 Range/Units 16:51 20:27 06:11 WBC (3.8-10.6) k/uL RBC (4.30-5.90) m/uL Hgb (13.0-17.5) gm/dL Hct (39.0-53.0) % RDW (11.5-15.5) % Plt Count (150-450) k/uL Neutrophils # (1.3-7.7) k/uL Lymphocytes # (1.0-4.8) k/uL PT (10.0-12.5) sec INR (<1.2) Sodium (137-145) mmol/L Chloride (98-107) mmol/L BUN (9-20) mg/dL Creatinine (0.66-1.25) mg/dL Glucose (74-99) mg/dL POC Glucose (mg/dL) 194 H 254 H 210 H (70-110) mg/dL Calcium (8.4-10.2) mg/dL 02/20/24 02/20/24 02/20/24 Range/Units 08:20 08:20 08:20 WBC 12.9 H (3.8-10.6) k/uL RBC 2.67 L (4.30-5.90) m/uL Hgb 8.4 L (13.0-17.5) gm/dL Hct 25.5 L (39.0-53.0) % RDW 15.7 H (11.5-15.5) % Plt Count 116 L (150-450) k/uL Neutrophils # 10.7 H (1.3-7.7) k/uL Lymphocytes # 0.9 L (1.0-4.8) k/uL PT 28.2 H (10.0-12.5) sec INR 2.9 H (<1.2) Sodium 133 L (137-145) mmol/L Chloride 96 L (98-107) mmol/L BUN 63 H (9-20) mg/dL Creatinine 4.11 H (0.66-1.25) mg/dL Glucose 153 H (74-99) mg/dL POC Glucose (mg/dL) (70-110) mg/dL Calcium 7.4 L (8.4-10.2) mg/dL Microbiology - Last 24 Hours (Table) 02/17/24 06:08 Blood Culture Gram Stain - Preliminary Blood Blood Culture - Preliminary Presumptive Staph aureus Molecular ID Assessment and Plan Assessment: 1. End-stage renal disease on hemodialysis on a Thursday schedule via left arm AV graft. AV graft is functional. Status post fistulogram and angioplasty 02/16/2024 2. A. fib with RVR status post Cardizem drip 3. Fever, maintained on empiric antibiotics. Blood cultures are growing staph aureus. Chest x-ray does not show significant pneumonia. 4. Volume overload 5. Acute hypoxic respiratory failure secondary to volume overload, improved. 6. Staph aureus bacteremia status post vancomycin. Being followed by ID. blood cultures from 02/17/2024 still positive. Plan: hemodialysis on a Thursday schedule. Continue with IV antibiotics. Consider TREY if bacteremia persists. No evidence of erythema noted at the site of the AV graft.
--- NOTE | 2024-02-20 11:44 | P.PN ---
Subjective Progress Note Date: 02/20/24 Principal diagnosis: Shortness of breath. Patient is a 78-year-old male with past medical history significant for atrial fibrillation anticoagulated on Coumadin, previous TAVR, hyperlipidemia, diabetes mellitus, end-stage renal disease receiving hemodialysis (Thursday, Thursday, Thursday schedule), obstructive sleep apnea with home BiPAP. Patient is technically a poor historian. Prior to coming in, patient was noted to be severely weak and somewhat confused by his . He did reportedly have a assisted fall from bed earlier in the week. I believe he was briefly evaluated by [facility] ER. Thursday, the patient was reportedly at the hemodialysis center. He was noted to have an elevated heart rate. Hemodialysis was terminated. Subsequently, he was brought into the emergency room for further evaluation on 02/15/2024. Heart rhythm on arrival was atrial fibrillation with rapid ventricular rate of 157 bpm. He was originally started on a Cardizem infusion which is currently off. He was also noted to be febrile. While in the emergency room, his left upper extremity AV graft was noted to be malfunctioning. Yesterday, 02/16/2024, he did undergo a left upper extremity fistulogram with ultrasound-guided access, percutaneous transluminal balloon angioplasty of the left subclavian vein, and thrombolysis at the proximal aspect of the graft. During the procedure, he developed some respiratory distress. He did receive 60 mg of IV Lasix. Patient reportedly still produces limited amounts of urine. Chest x-ray during these events showed worsening bilateral interstitial infiltrates concerning for interstitial edema versus atypical pneumonia. Negative for influenza, RSV, COVID. Considering patient's clinical presentation, favoring fluid overload. Patient was then transferred to the intensive care unit on BiPAP support with pressure settings of 10/5 and FiO2 of 60%. ABGs done on the settings included a PaO2 of 94, pCO2 of 42, pH of 7.39. FiO2 was then weaned down to 40%. It appears they were able to get his AV graft working, and patient just received stat hemodialysis. A total of 950 mL was removed. During hemodialysis, patient became hypotensive requiring the initiation of low-dose norepinephrine which is infusing at 0.03 mcg/kg/min. He art rhythm remains atrial fibrillation, but now with a controlled ventricular response. He is currently lying in bed, on 2 L/min nasal cannula, in no acute distress. SpO2 is 98%. BiPAP is on standby. He is oriented x 3, but a poor historian. His short-term memory of events leading to his hospitalization are limited. no focal deficits. He denies any specific complaints. Shortness of breath is reportedly improved. Denies cough, sputum production, chest pain. Denies any heart palpitations or lower extremity swelling. Denies nausea, vomiting, diarrhea, abdominal pain. Patient was having frequent small amounts of urination at home. Otherwise no urinary complaints. No observable wounds. Preliminary blood cultures show gram-positive cocci in clusters. He is covered on pharmacy to dose vancomycin. Also, empirically started on cefepime. Most recent CBC from yesterday includes a WBC count of 17.4, hemoglobin 9.8, hematocrit 29.4, platelets 92. No overt signs of bleeding noted. INR 2.2 on arrival. Chronically anticoagulated on warfarin. BMP from yesterday includes: Sodium 136, potassium 3.5, chloride 101, serum bicarb 26, BUN 87, creatinine 4.79, glucose 213. Urinalysis not concerning for UTI. Lactic acid level was 2.6 down to 1.3. Troponins also elevated at 0.171, 0.203, and 0.26 respectively. Possibly supply/demand mismatch and in the setting of renal failure. Initial EKG showed A-fib RVR with a left bundle branch block, rate was noted at 157 bpm. Patient has had follow-up echocardiogram which estimated a moderately impaired left ventricular systolic function 40 to 45%, TAVR valve noted with mild to moderate perivalvular regurgitation. Patient is being m onitored closely in intensive care unit. Progress note dated February 18, 2024. This is a 78-year-old male that we actually initially brought down into the intensive care unit, because of impending respiratory failure, from missed hemodialysis, secondary to a clotted AV fistula. Anyway, the patient was seen by vascular surgery, and the AV fistula was made to be functional, the patient did receive emergent hemodialysis, which prevented or precluded intubation and mechanical ventilation. The patient is seen today in room 361. He is on saline at 10 cc an hour, and nasal O2 at 2 L. He says he did use the BiPAP last night, with settings of 10/5 and 30%. His respiratory status is much improved. Current labs include a white count 12.5, hemoglobin 9.3, hematocrit 28.7, and a platelet count of 106,000. PT 16.8 INR 1.6. Sodium 132, potassium 3.7, chloride 98, CO2 26, BUN 58, creatinine 3.57. Calcium is 7.6. Blood cultures are showing presumptive Staph aureus. Chest x-ray, compared to the one the day before, shows significant improvement. Progress note dated February 19, 2024. 78-year-old male seen in room 366. Patient is doing well. He is currently on 3 L of oxygen. He is not receiving any IV fluids. Clinically, his respiratory status is stable. He continues on Ancef. The rest of his medications are reviewed. Laboratory data includes a white count of 12.4, hemoglobin 8.9, hem atocrit 27.4, and platelet count of 94,000. PT 20.5, INR 2.0. Sodium 132, potassium 3.7, chlorides 98, CO2 24, BUN 84, creatinine 4.74. Glucose is 66. Calcium is 7.7. Blood cultures were positive for oxacillin sensitive Staph aureus. Chest x-ray from February 17 shows evidence of cardiomegaly, and mild pulmonary vascular congestion. Progress note dated February 20, 2024. 78-year-old male seen today in room 366. Currently, the patient is on O2 at 2 L by nasal cannula. The patient is getting saline at 10 cc an hour. The patient did use BiPAP last night, with settings of 10/5, and 30%. Clinically, the patient is doing much better. Current labs include a white count 12.9, hemoglobin 8.4, hematocrit 25.5, and a platelet count of 116,000. PT is 28.2, and INR is 2.9. Sodium 133, potassium 3.6, chlorides 96, CO2 29, BUN 63, and creatinine 4.11. Glucose is 153. Calcium is 7.4. Cultures were positive for Staphylococcus aureus. Patient continues on Ancef. Objective - Vital Signs Vital signs: Vital Signs Temp 100.0 F H 02/20/24 09:11 Pulse 71 02/20/24 09:11 Resp 15 02/20/24 09:11 BP 128/62 02/20/24 09:11 Pulse Ox 98 02/20/24 09:11 FiO2 30 02/17/24 04:15 Intake & Output 02/19/24 02/20/24 02/20/24 18:59 06:59 18:59 Intake Total 400 10 Output Total 350 2400 200 Balance -350 -2000 -190 Intake: IV 10 Invasive Line 4 10 Hemodialysis 400 Output: Urine 350 200 Hemodialysis 2400 Other: Voiding Method Indwelling Catheter Indwelling Catheter Indwelling Catheter - Exam No acute distress, oriented 3. The patient is currently on 2 L nasal cannula. No respiratory distress, or use of accessory muscles. HEENT examination is grossly unremarkable. Mucous membranes are moist. No oral lesions. Neck supple. Full range of motion. No adenopathy thyromegaly or neck vein distention. Cardiovascular examination reveals regular rhythm rate. S1-S2 normal. No S3 or S4. No discernible murmur noted. Heart sounds distant. Heart rate 71 bpm. Lungs reveal mild bibasilar crackles. No wheezes or rhonchi. 2 L saturation is 98 percent. Breath sounds are equal bilaterally. Abdomen soft bowel sounds are heard. No masses or tenderness. Extremities are intact. No cyanosis clubbing or edema. Skin is without rash or lesion. Neurologic examination is brief but nonfocal. - Labs CBC & Chem 7: 02/20/24 08:20 02/20/24 08:20 Labs: Abnormal Lab Results - Last 24 Hours (Table) 02/19/24 02/19/24 02/20/24 Range/Units 16:51 20:27 06:11 WBC (3.8-10.6) k/uL RBC (4.30-5.90) m/uL Hgb (13.0-17.5) gm/dL Hct (39.0-53.0) % RDW (11.5-15.5) % Plt Count (150-450) k/uL Neutrophils # (1.3-7.7) k/uL Lymphocytes # (1.0-4.8) k/uL PT (10.0-12.5) sec INR (<1.2) Sodium (137-145) mmol/L Chloride (98-107) mmol/L BUN (9-20) mg/dL Creatinine (0.66-1.25) mg/dL Glucose (74-99) mg/dL POC Glucose (mg/dL) 194 H 254 H 210 H (70-110) mg/dL Calcium (8.4-10.2) mg/dL 02/20/24 02/20/24 02/20/24 Range/Units 08:20 08:20 08:20 WBC 12.9 H (3.8-10.6) k/uL RBC 2.67 L (4.30-5.90) m/uL Hgb 8.4 L (13.0-17.5) gm/dL Hct 25.5 L (39.0-53.0) % RDW 15.7 H (11.5-15.5) % Plt Count 116 L (150-450) k/uL Neutrophils # 10.7 H (1.3-7.7) k/uL Lymphocytes # 0.9 L (1.0-4.8) k/uL PT 28.2 H (10.0-12.5) sec INR 2.9 H (<1.2) Sodium 133 L (137-145) mmol/L Chloride 96 L (98-107) mmol/L BUN 63 H (9-20) mg/dL Creatinine 4.11 H (0.66-1.25) mg/dL Glucose 153 H (74-99) mg/dL POC Glucose (mg/dL) (70-110) mg/dL Calcium 7.4 L (8.4-10.2) mg/dL Microbiology - Last 24 Hours (Table) 02/17/24 06:08 Blood Culture Gram Stain - Preliminary Blood Blood Culture - Preliminary Presumptive Staph aureus Molecular ID Assessment and Plan Assessment: Acute hypoxemic respiratory failure, likely secondary to a combination of fluid overload and acute systolic CHF exacerbation. End-stage renal disease, receiving hemodialysis on a Thursday, Thursday, Thursday schedule. Atrial fibrillation with rapid ventricular response. Bacteremia and sepsis, secondary to methicillin sensitive Staphylococcus aureus. Hypotension and shock. Acute febrile illness. Altered mental status, possibly explained by acute metabolic encephalopathy and sepsis. Acute leukocytosis. Thrombocytopenia. Anemia of chronic disease, secondary to end-stage renal disease. Elevated troponins, suspect supply/demand mismatch. History of TAVR. History of hyperlipidemia. Obesity, with a BMI of 33.5 kg/m. Obstructive sleep apnea, with home BiPAP device. Former tobacco smoker. Plan: Plan dated February 18, 2024. I am happy to report that the patient is doing much better. He did use BiPAP last night with settings of 10/5, 30%. Currently he is getting saline at 10 cc an hour, and oxygen by nasal cannula at 2 L. We will continue to follow the patient, make recommendations along the way. The patient's overall prognosis remains guarded. Labs, x-rays, and medications are reviewed. Plan dated February 19, 2024. The patient is doing much better. He is currently on 2 L. He continues on Ancef, for the oxacillin sensitive Staphylococcus aureus in his bloodstream. Labs, x-rays, and medications are reviewed. He denies any respiratory issues such as shortness of breath, cough, wheezing, chest tightness, or phlegm production. We will continue to follow the patient, and make recommendations. Prognosis is certainly guarded. Plan dated February 20, 2024. The patient continues on Ancef. Labs, x-rays, and all medications are reviewed. The patient appears to be doing much better. The patient is currently on 2 L of oxygen. He denies any significant shortness of breath, cough, wheezing, chest tightness, or phlegm production. He also denies any fever or chills, chest pain, or any GI issues. We will continue to follow the patient, and make recommendations along the way. Labs, x-rays, and all medications have been reviewed. Time with Patient: Less than 30
[2024-02-20 11:47] LABS: Glucose,Whole Blood 111 mg/dL (70-110)
--- NOTE | 2024-02-20 12:49 | P.PN ---
Subjective Progress Note Date: 02/20/24 Patient is a 78-year-old male with with known diabetes, atrial fibrillation anticoagulated with Coumadin, prior aortic valve replacement, dyslipidemia, end- stage renal disease on hemodialysis Thursday/Thursday/Thursday, and BPH who presented to the emergency department due to confusion and weakness. He had previously been to [facility] where he was noted to have a fever and elevated heart rate he was then discharged from the emergency department. When he went to go to dialysis they terminated after 1 hour due to a fever. On arrival to the emergency department he was noted to be febrile to 104.1 with a heart rate of 140. Initial laboratory analysis was remarkable for white blood cell count 19.4, platelets 131, lactic acid 2.6, troponin 0.12, and renal function consistent with his known dialysis. Influenza A/B/RSV/COVID-19 testing was negative. Initial chest x-ray demonstrated pulmonary vascular congestion. Patient was admitted for sepsis of unknown etiology and A-fib with RVR. He was to started on vancomycin and cefepime as well as a Cardizem drip. Critical care and cardiology were consulted. Echocardiogram was performed which demonstrated ejection fraction of 40 to 45% with mild to moderate perivalvular leak of his aortic valve replacement. Vascular surgery was consulted as his dialysis access is not working. And on 02/15 he underwent left upper extremity fistulogram with transluminal ballooning and thrombolysis at proximal aspect of graft. He then underwent hemodialysis and became slightly hypotensive requiring initiation of norepinephrine. He was subsequently transferred to the ICU. He had 3 bowel movements overnight on 02/15. His hemoglobin stabilized and he had a recent outpatient colonoscopy without active bleeding. Patient seen this morning. He denies any acute complaints. Vital signs reviewed General: [nontoxic], [no distress], [appears at stated age] Cardiovascular: [S1S2 reg], [no murmur] Lungs: [CTA bilateral], [no rhonchi, no rales] , [no accessory muscle use] Abdominal: [soft], [ nontender to palpation], [no guarding] Ext: [no gross muscle atrophy], [no edema b/l lower extremities], [no contractures] Neuro: [ CN II-XI grossly intact], [no focal neuro deficits] Psych: [Alert], [oriented], [appropriate affect] Assessment/Plan: MSSA bacteremia with sepsis -Likely related to dialysis access? -Continue with cefazolin day 5 -Patient's last cultures done on 02/17/2024 are positive -Follow-up on repeat blood cultures from 02/19/2024 -Infectious disease note reviewed: Continue with cefazolin, no need for PICC line as it will go with dialysis. End-stage renal disease on hemodialysis Thursday/Thursday/Thursday Malfunction AV graft- s/p angioplasty/thrombolysis of left subclavian vein -Case discussed with Dr. Serra. Once bacteremia is improved plan will be for IV antibiotics with hemodialysis on Thursday/Thursday/Thursday - Vascular note reviewed: HD as tolerated, follow-up with vascular surgeon at [facility] Melena, possible lower GI bleed. Normocytic anemia, probable acute blood loss with chronic renal disease - GI note reviewed: Continue with Protonix for GI prophylaxis, diet as tolerated, recent colonoscopy with no active bleeding but positive occult stool. No plans for repeat endoscopic evaluation. - no indication for transfusion -Coumadin has been restarted by cardiology. -Hemoglobin is stable this morning. Yesterday hemoglobin was 8.9. Today hemoglobin is 8.4 Acute exacerbation of systolic congestive heart failure with ejection fraction 40 to 45% Atrial fibrillation with rapid ventricular response anticoagulated with coumadin Type II non-STEMI Dyslipidemia Bioprosthetic aortic valve -Cardiology note reviewed: Resume Coumadin. INR is therapeutic -Lipitor 10 mg at night -Metoprolol 25 mg oral 3 times daily Thrombocytopenia - unkown if acute of chronic - continue to follow CBC - no indication for transfusion -Improving Diabetes mellitus type 2 with hyperglycemia -At home patient takes Lantus 45 units at night and Alogliptin -A1c 8.8 -Resume Levemir 24 units at night, add fixed dose NovoLog 2 units with each meal and continue with sliding scale insulin. DVT prophylaxis: SCD Anticipated discharge date: Pending clinical course Anticipated discharge place: Pending clinical course Objective - Vital Signs Vital signs: Vital Signs Temp 100.0 F H 02/20/24 09:11 Pulse 71 02/20/24 09:11 Resp 15 02/20/24 09:11 BP 128/62 02/20/24 09:11 Pulse Ox 98 02/20/24 09:11 FiO2 30 02/17/24 04:15 Intake & Output 02/19/24 02/20/24 02/20/24 18:59 06:59 18:59 Intake Total 400 10 Output Total 350 2400 200 Balance -350 -2000 -190 Intake: IV 10 Invasive Line 4 10 Hemodialysis 400 Output: Urine 350 200 Hemodialysis 2400 Other: Voiding Method Indwelling Catheter Indwelling Catheter Indwelling Catheter - Labs CBC & Chem 7: 02/20/24 08:20 02/20/24 08:20 Labs: Abnormal Lab Results - Last 24 Hours (Table) 02/19/24 02/19/24 02/20/24 Range/Units 16:51 20:27 06:11 WBC (3.8-10.6) k/uL RBC (4.30-5.90) m/uL Hgb (13.0-17.5) gm/dL Hct (39.0-53.0) % RDW (11.5-15.5) % Plt Count (150-450) k/uL Neutrophils # (1.3-7.7) k/uL Lymphocytes # (1.0-4.8) k/uL PT (10.0-12.5) sec INR (<1.2) Sodium (137-145) mmol/L Chloride (98-107) mmol/L BUN (9-20) mg/dL Creatinine (0.66-1.25) mg/dL Glucose (74-99) mg/dL POC Glucose (mg/dL) 194 H 254 H 210 H (70-110) mg/dL Calcium (8.4-10.2) mg/dL 02/20/24 02/20/24 02/20/24 Range/Units 08:20 08:20 08:20 WBC 12.9 H (3.8-10.6) k/uL RBC 2.67 L (4.30-5.90) m/uL Hgb 8.4 L (13.0-17.5) gm/dL Hct 25.5 L (39.0-53.0) % RDW 15.7 H (11.5-15.5) % Plt Count 116 L (150-450) k/uL Neutrophils # 10.7 H (1.3-7.7) k/uL Lymphocytes # 0.9 L (1.0-4.8) k/uL PT 28.2 H (10.0-12.5) sec INR 2.9 H (<1.2) Sodium 133 L (137-145) mmol/L Chloride 96 L (98-107) mmol/L BUN 63 H (9-20) mg/dL Creatinine 4.11 H (0.66-1.25) mg/dL Glucose 153 H (74-99) mg/dL POC Glucose (mg/dL) (70-110) mg/dL Calcium 7.4 L (8.4-10.2) mg/dL 02/20/24 Range/Units 11:46 WBC (3.8-10.6) k/uL RBC (4.30-5.90) m/uL Hgb (13.0-17.5) gm/dL Hct (39.0-53.0) % RDW (11.5-15.5) % Plt Count (150-450) k/uL Neutrophils # (1.3-7.7) k/uL Lymphocytes # (1.0-4.8) k/uL PT (10.0-12.5) sec INR (<1.2) Sodium (137-145) mmol/L Chloride (98-107) mmol/L BUN (9-20) mg/dL Creatinine (0.66-1.25) mg/dL Glucose (74-99) mg/dL POC Glucose (mg/dL) 111 H (70-110) mg/dL Calcium (8.4-10.2) mg/dL
[2024-02-20 16:27] LABS: ABG Base Excess 4.3 mmol/L; ABG HCO3 29 mmol/L (21-25); ABG Oxygen Saturation 97.1 % (94-97); ABG PCO2 43 mmHg (35-45); ABG PH 7.44 (7.35-7.45); ABG PO2 109 mmHg (83-108); Allen Test Performed? Yes
[2024-02-20 16:37] LABS: Glucose,Whole Blood 183 mg/dL (70-110)
[2024-02-20] MEDS: WARFARIN 2.5 MG TAB PO ONE (18:11)
[2024-02-20 20:01] LABS: Glucose,Whole Blood 226 mg/dL (70-110)
[2024-02-21 06:32] LABS: Glucose,Whole Blood 141 mg/dL (70-110)
[2024-02-21 06:53] LABS: Basophils # (A) 0.1 k/uL (0-0.2); Basophils % (A) 1 %; Eosinophils # (A) 0.3 k/uL (0-0.7); Eosinophils % (A) 2 %; HCT 25.3 % (39.0-53.0); HGB 8.1 gm/dL (13.0-17.5); Lymphocytes # (A) 1.2 k/uL (1.0-4.8); Lymphocytes % (A) 9 %; MCH 31.1 pg (25.0-35.0); MCHC 32.1 g/dL (31.0-37.0); MCV 96.8 fL (80.0-100.0); Monocytes % (A) 7 %; Neutrophils # (A) 10.7 k/uL (1.3-7.7); Neutrophils % (A) 79 %; Platelet Count 140 k/uL (150-450); RBC 2.62 m/uL (4.30-5.90); RDW 15.6 % (11.5-15.5); WBC 13.7 k/uL (3.8-10.6)
[2024-02-21 07:12] LABS: INR 3.3 (<1.2); Prothrombin Time 32.6 sec (10.0-12.5)
[2024-02-21 07:18] LABS: African American GFR (CKD) 11 (>60 ml/min/1.73 sqM); Anion Gap 10 mmol/L; Blood Urea Nitrogen 88 mg/dL (9-20); Calcium 7.3 mg/dL (8.4-10.2); Carbon Dioxide 27 mmol/L (22-30); Chloride 95 mmol/L (98-107); Glucose 132 mg/dL (74-99); Non-African American GFR(CKD) 9 (>60 ml/min/1.73 sqM); Potassium 3.9 mmol/L (3.5-5.1); Sodium 132 mmol/L (137-145)
--- NOTE | 2024-02-21 10:27 | P.PN ---
Subjective Progress Note Date: 02/21/24 Patient is a 78-year-old male with with known diabetes, atrial fibrillation anticoagulated with Coumadin, prior aortic valve replacement, dyslipidemia, end- stage renal disease on hemodialysis Thursday/Thursday/Thursday, and BPH who presented to the emergency department due to confusion and weakness. He had previously been to [facility] where he was noted to have a fever and elevated heart rate he was then discharged from the emergency department. When he went to go to dialysis they terminated after 1 hour due to a fever. On arrival to the emergency department he was noted to be febrile to 104.1 with a heart rate of 140. Initial laboratory analysis was remarkable for white blood cell count 19.4, platelets 131, lactic acid 2.6, troponin 0.12, and renal function consistent with his known dialysis. Influenza A/B/RSV/COVID-19 testing was negative. Initial chest x-ray demonstrated pulmonary vascular congestion. Patient was admitted for sepsis of unknown etiology and A-fib with RVR. He was to started on vancomycin and cefepime as well as a Cardizem drip. Critical care and cardiology were consulted. Echocardiogram was performed which demonstrated ejection fraction of 40 to 45% with mild to moderate perivalvular leak of his aortic valve replacement. Vascular surgery was consulted as his dialysis access is not working. And on 02/15 he underwent left upper extremity fistulogram with transluminal ballooning and thrombolysis at proximal aspect of graft. He then underwent hemodialysis and became slightly hypotensive requiring initiation of norepinephrine. He was subsequently transferred to the ICU. He had 3 bowel movements overnight on 02/15. His hemoglobin stabilized and he had a recent outpatient colonoscopy without active bleeding. Patient seen this morning. He is AOx3 however he is lethargic. He is still answering questions slowly. Yesterday nurse was concerned that patient maybe aspirating since he is pocketing his food. Vital signs reviewed General: [nontoxic], [no distress], [appears at stated age] Cardiovascular: [S1S2 reg], [no murmur] Lungs: [CTA bilateral], [no rhonchi, no rales] , [no accessory muscle use] Abdominal: [soft], [ nontender to palpation], [no guarding] Ext: [no gross muscle atrophy], [no edema b/l lower extremities], [no contractu res] Neuro: [ CN II-XI grossly intact], [no focal neuro deficits] Psych: [Alert], [oriented], [appropriate affect] Assessment/Plan: MSSA bacteremia with sepsis -Likely related to dialysis access? No infection was noted at the site of dialysis access -Continue with cefazolin day 6 -Patient's last cultures done on 02/17/2024 are positive -Blood cultures from 02/19/2024 are negative to date -Infectious disease note reviewed: Continue with cefazolin, no need for PICC line as it will go with dialysis. End-stage renal disease on hemodialysis Thursday/Thursday/Thursday Malfunction AV graft- s/p angioplasty/thrombolysis of left subclavian vein -Case discussed with Dr. Serra. Once bacteremia is improved plan will be for IV antibiotics with hemodialysis on Thursday/Thursday/Thursday - Vascular note reviewed: HD as tolerated, follow-up with vascular surgeon at [facility]. Melena, possible lower GI bleed. Normocytic anemia, probable acute blood loss with chronic renal disease - GI note reviewed: Continue with Protonix for GI prophylaxis, diet as tolerated, recent colonoscopy with no active bleeding but positive occult stool. No plans for repeat endoscopic evaluation. - no indication for transfusion -Coumadin has been restarted by cardiology. -Hemoglobin is stable this morning. Hemoglobin is 8.1 this morning. Gradually trending down. Acute exacerbation of systolic congestive heart failure with ejection fraction 40 to 45% Atrial fibrillation with rapid ventricular response anticoagulated with coumadin Type II non-STEMI Dyslipidemia Bioprosthetic aortic valve -Cardiology restarted Coumadin Coumadin. INR is supratherapeutic. Pharmacy to adjust dose of Coumadin -Lipitor 10 mg at night -Metoprolol 25 mg oral 3 times daily Lethargy I suspect this is due to patient starting dialysis and also due to bacteremia. I anticipate that his lethargy will improve gradually over time. Patient has been pocketing his food in his mouth. Will consult speech therapy Thrombocytopenia - unkown if acute of chronic - continue to follow CBC - no indication for transfusion -Improving Diabetes mellitus type 2 with hyperglycemia -At home patient takes Lantus 45 units at night and Alogliptin -A1c 8.8 -Resume Levemir 24 units at night, add fixed dose NovoLog 2 units with each meal and continue with sliding scale insulin. DVT prophylaxis: SCD Anticipated discharge date: Pending clinical course Anticipated discharge place: Pending clinical course Objective - Vital Signs Vital signs: Vital Signs Temp 98.2 F 02/21/24 08:18 Pulse 61 02/21/24 08:18 Resp 16 02/21/24 08:18 BP 130/69 02/21/24 08:18 Pulse Ox 100 02/21/24 08:27 FiO2 35 02/21/24 05:34 Intake & Output 02/20/24 02/21/24 02/21/24 18:59 06:59 18:59 Intake Total 248 180 Output Total 200 125 Balance 48 -125 180 Intake: IV 10 Invasive Line 4 10 Oral 238 180 Output: Urine 200 125 Other: Voiding Method External Catheter External Catheter External Catheter - Labs CBC & Chem 7: 02/21/24 06:17 02/21/24 06:17 Labs: Abnormal Lab Results - Last 24 Hours (Table) 02/20/24 02/20/24 02/20/24 Range/Units 11:46 16:22 16:36 WBC (3.8-10.6) k/uL RBC (4.30-5.90) m/uL Hgb (13.0-17.5) gm/dL Hct (39.0-53.0) % RDW (11.5-15.5) % Plt Count (150-450) k/uL Neutrophils # (1.3-7.7) k/uL PT (10.0-12.5) sec INR (<1.2) ABG pO2 109 H (83-108) mmHg ABG HCO3 29 H (21-25) mmol/L ABG O2 Saturation 97.1 H (94-97) % Sodium (137-145) mmol/L Chloride (98-107) mmol/L BUN (9-20) mg/dL Creatinine (0.66-1.25) mg/dL Glucose (74-99) mg/dL POC Glucose (mg/dL) 111 H 183 H (70-110) mg/dL Calcium (8.4-10.2) mg/dL 02/20/24 02/21/24 02/21/24 Range/Units 19:59 06:17 06:17 WBC 13.7 H (3.8-10.6) k/uL RBC 2.62 L (4.30-5.90) m/uL Hgb 8.1 L (13.0-17.5) gm/dL Hct 25.3 L (39.0-53.0) % RDW 15.6 H (11.5-15.5) % Plt Count 140 L (150-450) k/uL Neutrophils # 10.7 H (1.3-7.7) k/uL PT 32.6 H (10.0-12.5) sec INR 3.3 H (<1.2) ABG pO2 (83-108) mmHg ABG HCO3 (21-25) mmol/L ABG O2 Saturation (94-97) % Sodium (137-145) mmol/L Chloride (98-107) mmol/L BUN (9-20) mg/dL Creatinine (0.66-1.25) mg/dL Glucose (74-99) mg/dL POC Glucose (mg/dL) 226 H (70-110) mg/dL Calcium (8.4-10.2) mg/dL 02/21/24 02/21/24 Range/Units 06:17 06:31 WBC (3.8-10.6) k/uL RBC (4.30-5.90) m/uL Hgb (13.0-17.5) gm/dL Hct (39.0-53.0) % RDW (11.5-15.5) % Plt Count (150-450) k/uL Neutrophils # (1.3-7.7) k/uL PT (10.0-12.5) sec INR (<1.2) ABG pO2 (83-108) mmHg ABG HCO3 (21-25) mmol/L ABG O2 Saturation (94-97) % Sodium 132 L (137-145) mmol/L Chloride 95 L (98-107) mmol/L BUN 88 H (9-20) mg/dL Creatinine 5.57 H (0.66-1.25) mg/dL Glucose 132 H (74-99) mg/dL POC Glucose (mg/dL) 141 H (70-110) mg/dL Calcium 7.3 L (8.4-10.2) mg/dL Microbiology - Last 24 Hours (Table) 02/19/24 16:10 Blood Culture - Preliminary Blood 02/17/24 06:08 Blood Culture Gram Stain - Final Blood Blood Culture - Final Staphylococcus aureus Molecular ID
--- NOTE | 2024-02-21 10:42 | P.PN ---
Subjective Patient is seen for follow-up for end-stage renal disease. Maintained on Thursday schedule. blood cultures remain positive for MSSA. maintained on cefazolin. No evidence of erythema at the site of the AV graft. No significant complaints today. Objective - Vital Signs Vital signs: Vital Signs Temp 98.2 F 02/21/24 08:18 Pulse 61 02/21/24 08:18 Resp 16 02/21/24 08:18 BP 130/69 02/21/24 08:18 Pulse Ox 100 02/21/24 08:27 FiO2 35 02/21/24 05:34 Intake & Output 02/20/24 02/21/24 02/21/24 18:59 06:59 18:59 Intake Total 248 180 Output Total 200 125 Balance 48 -125 180 Intake: IV 10 Invasive Line 4 10 Oral 238 180 Output: Urine 200 125 Other: Voiding Method External Catheter External Catheter External Catheter - Exam patient is awake, comfortable, no acute distress. Examination of the heart S1 and S2 Examination of the lungs bilateral breath sounds are heard decreased breath sounds at the bases Abdomen is soft nontender Examination of lower extremities shows no significant edema. [employer] exam grossly intact - Labs CBC & Chem 7: 02/21/24 06:17 02/21/24 06:17 Labs: Abnormal Lab Results - Last 24 Hours (Table) 02/20/24 02/20/24 02/20/24 Range/Units 11:46 16:22 16:36 WBC (3.8-10.6) k/uL RBC (4.30-5.90) m/uL Hgb (13.0-17.5) gm/dL Hct (39.0-53.0) % RDW (11.5-15.5) % Plt Count (150-450) k/uL Neutrophils # (1.3-7.7) k/uL PT (10.0-12.5) sec INR (<1.2) ABG pO2 109 H (83-108) mmHg ABG HCO3 29 H (21-25) mmol/L ABG O2 Saturation 97.1 H (94-97) % Sodium (137-145) mmol/L Chloride (98-107) mmol/L BUN (9-20) mg/dL Creatinine (0.66-1.25) mg/dL Glucose (74-99) mg/dL POC Glucose (mg/dL) 111 H 183 H (70-110) mg/dL Calcium (8.4-10.2) mg/dL 02/20/24 02/21/24 02/21/24 Range/Units 19:59 06:17 06:17 WBC 13.7 H (3.8-10.6) k/uL RBC 2.62 L (4.30-5.90) m/uL Hgb 8.1 L (13.0-17.5) gm/dL Hct 25.3 L (39.0-53.0) % RDW 15.6 H (11.5-15.5) % Plt Count 140 L (150-450) k/uL Neutrophils # 10.7 H (1.3-7.7) k/uL PT 32.6 H (10.0-12.5) sec INR 3.3 H (<1.2) ABG pO2 (83-108) mmHg ABG HCO3 (21-25) mmol/L ABG O2 Saturation (94-97) % Sodium (137-145) mmol/L Chloride (98-107) mmol/L BUN (9-20) mg/dL Creatinine (0.66-1.25) mg/dL Glucose (74-99) mg/dL POC Glucose (mg/dL) 226 H (70-110) mg/dL Calcium (8.4-10.2) mg/dL 02/21/24 02/21/24 Range/Units 06:17 06:31 WBC (3.8-10.6) k/uL RBC (4.30-5.90) m/uL Hgb (13.0-17.5) gm/dL Hct (39.0-53.0) % RDW (11.5-15.5) % Plt Count (150-450) k/uL Neutrophils # (1.3-7.7) k/uL PT (10.0-12.5) sec INR (<1.2) ABG pO2 (83-108) mmHg ABG HCO3 (21-25) mmol/L ABG O2 Saturation (94-97) % Sodium 132 L (137-145) mmol/L Chloride 95 L (98-107) mmol/L BUN 88 H (9-20) mg/dL Creatinine 5.57 H (0.66-1.25) mg/dL Glucose 132 H (74-99) mg/dL POC Glucose (mg/dL) 141 H (70-110) mg/dL Calcium 7.3 L (8.4-10.2) mg/dL Microbiology - Last 24 Hours (Table) 02/19/24 16:10 Blood Culture - Preliminary Blood 02/17/24 06:08 Blood Culture Gram Stain - Final Blood Blood Culture - Final Staphylococcus aureus Molecular ID Assessment and Plan Assessment: 1. End-stage renal disease on hemodialysis on a Thursday schedule via left arm AV graft. AV graft is functional. Status post fistulogram and angioplasty 02/16/2024 2. A. fib with RVR status post Cardizem drip 3. Fever, maintained on empiric antibiotics. Blood cultures are growing staph aureus. Chest x-ray does not show significant pneumonia. 4. Volume overload, improved 5. Acute hypoxic respiratory failure secondary to volume overload, improved. 6. Staph aureus bacteremia status post vancomycin. Being followed by ID. blood cultures from 02/17/2024 still positive. Plan: hemodialysis on a Thursday schedule. Continue with IV antibiotics. Consider TREY if bacteremia persists. No evidence of erythema noted at the site of the AV graft.
[2024-02-21 11:22] LABS: Glucose,Whole Blood 175 mg/dL (70-110)
--- NOTE | 2024-02-21 12:16 | P.PN ---
Subjective Progress Note Date: 02/21/24 Principal diagnosis: Shortness of breath. Patient is a 78-year-old male with past medical history significant for atrial fibrillation anticoagulated on Coumadin, previous TAVR, hyperlipidemia, diabetes mellitus, end-stage renal disease receiving hemodialysis (Thursday, Thursday, Thursday schedule), obstructive sleep apnea with home BiPAP. Patient is technically a poor historian. Prior to coming in, patient was noted to be severely weak and somewhat confused by his . He did reportedly have a assisted fall from bed earlier in the week. I believe he was briefly evaluated by [facility] ER. Thursday, the patient was reportedly at the hemodialysis center. He was noted to have an elevated heart rate. Hemodialysis was terminated. Subsequently, he was brought into the emergency room for further evaluation on 02/15/2024. Heart rhythm on arrival was atrial fibrillation with rapid ventricular rate of 157 bpm. He was originally started on a Cardizem infusion which is currently off. He was also noted to be febrile. While in the emergency room, his left upper extremity AV graft was noted to be malfunctioning. Yesterday, 02/16/2024, he did undergo a left upper extremity fistulogram with ultrasound-guided access, percutaneous transluminal balloon angioplasty of the left subclavian vein, and thrombolysis at the proximal aspect of the graft. During the procedure, he developed some respiratory distress. He did receive 60 mg of IV Lasix. Patient reportedly still produces limited amounts of urine. Chest x-ray during these events showed worsening bilateral interstitial infiltrates concerning for interstitial edema versus atypical pneumonia. Negative for influenza, RSV, COVID. Considering patient's clinical presentation, favoring fluid overload. Patient was then transferred to the intensive care unit on BiPAP support with pressure settings of 10/5 and FiO2 of 60%. ABGs done on the settings included a PaO2 of 94, pCO2 of 42, pH of 7.39. FiO2 was then weaned down to 40%. It appears they were able to get his AV graft working, and patient just received stat hemodialysis. A total of 950 mL was removed. During hemodialysis, patient became hypotensive requiring the initiation of low-dose norepinephrine which is infusing at 0.03 mcg/kg/min. He art rhythm remains atrial fibrillation, but now with a controlled ventricular response. He is currently lying in bed, on 2 L/min nasal cannula, in no acute distress. SpO2 is 98%. BiPAP is on standby. He is oriented x 3, but a poor historian. His short-term memory of events leading to his hospitalization are limited. no focal deficits. He denies any specific complaints. Shortness of breath is reportedly improved. Denies cough, sputum production, chest pain. Denies any heart palpitations or lower extremity swelling. Denies nausea, vomiting, diarrhea, abdominal pain. Patient was having frequent small amounts of urination at home. Otherwise no urinary complaints. No observable wounds. Preliminary blood cultures show gram-positive cocci in clusters. He is covered on pharmacy to dose vancomycin. Also, empirically started on cefepime. Most recent CBC from yesterday includes a WBC count of 17.4, hemoglobin 9.8, hematocrit 29.4, platelets 92. No overt signs of bleeding noted. INR 2.2 on arrival. Chronically anticoagulated on warfarin. BMP from yesterday includes: Sodium 136, potassium 3.5, chloride 101, serum bicarb 26, BUN 87, creatinine 4.79, glucose 213. Urinalysis not concerning for UTI. Lactic acid level was 2.6 down to 1.3. Troponins also elevated at 0.171, 0.203, and 0.26 respectively. Possibly supply/demand mismatch and in the setting of renal failure. Initial EKG showed A-fib RVR with a left bundle branch block, rate was noted at 157 bpm. Patient has had follow-up echocardiogram which estimated a moderately impaired left ventricular systolic function 40 to 45%, TAVR valve noted with mild to moderate perivalvular regurgitation. Patient is being m onitored closely in intensive care unit. Progress note dated February 18, 2024. This is a 78-year-old male that we actually initially brought down into the intensive care unit, because of impending respiratory failure, from missed hemodialysis, secondary to a clotted AV fistula. Anyway, the patient was seen by vascular surgery, and the AV fistula was made to be functional, the patient did receive emergent hemodialysis, which prevented or precluded intubation and mechanical ventilation. The patient is seen today in room 361. He is on saline at 10 cc an hour, and nasal O2 at 2 L. He says he did use the BiPAP last night, with settings of 10/5 and 30%. His respiratory status is much improved. Current labs include a white count 12.5, hemoglobin 9.3, hematocrit 28.7, and a platelet count of 106,000. PT 16.8 INR 1.6. Sodium 132, potassium 3.7, chloride 98, CO2 26, BUN 58, creatinine 3.57. Calcium is 7.6. Blood cultures are showing presumptive Staph aureus. Chest x-ray, compared to the one the day before, shows significant improvement. Progress note dated February 19, 2024. 78-year-old male seen in room 366. Patient is doing well. He is currently on 3 L of oxygen. He is not receiving any IV fluids. Clinically, his respiratory status is stable. He continues on Ancef. The rest of his medications are reviewed. Laboratory data includes a white count of 12.4, hemoglobin 8.9, hem atocrit 27.4, and platelet count of 94,000. PT 20.5, INR 2.0. Sodium 132, potassium 3.7, chlorides 98, CO2 24, BUN 84, creatinine 4.74. Glucose is 66. Calcium is 7.7. Blood cultures were positive for oxacillin sensitive Staph aureus. Chest x-ray from February 17 shows evidence of cardiomegaly, and mild pulmonary vascular congestion. Progress note dated February 20, 2024. 78-year-old male seen today in room 366. Currently, the patient is on O2 at 2 L by nasal cannula. The patient is getting saline at 10 cc an hour. The patient did use BiPAP last night, with settings of 10/5, and 30%. Clinically, the patient is doing much better. Current labs include a white count 12.9, hemoglobin 8.4, hematocrit 25.5, and a platelet count of 116,000. PT is 28.2, and INR is 2.9. Sodium 133, potassium 3.6, chlorides 96, CO2 29, BUN 63, and creatinine 4.11. Glucose is 153. Calcium is 7.4. Cultures were positive for Staphylococcus aureus. Patient continues on Ancef. Progress note dated February 21, 2024. 78-year-old male seen today in room 366. Currently, the patient is on oxygen at 2 L by nasal cannula. His saturations are 98%. The patient is not receiving any IV fluids today. The patient has been using BiPAP, intermittently, with settings of 10/5, and 30%. Clinically, the patient appears much improved. The patient spent a short period of time in the intensive care unit, with fluid over load, requiring emergent dialysis. White count is 13.7, hemoglobin 8.1, hematocrit 25.3, and platelet count is 140,000. PT 32.6 INR 3.3. Sodium 132, potassium 3.9, chlorides 95, CO2 27 anion gap 10, BUN 88, creatinine 5.57. Calcium is 7.3. Glucose is 175. Objective - Vital Signs Vital signs: Vital Signs Temp 98.2 F 02/21/24 08:18 Pulse 61 02/21/24 08:18 Resp 16 02/21/24 08:18 BP 130/69 02/21/24 08:18 Pulse Ox 100 02/21/24 08:27 FiO2 35 02/21/24 05:34 Intake & Output 02/20/24 02/21/24 02/21/24 18:59 06:59 18:59 Intake Total 248 180 Output Total 200 125 Balance 48 -125 180 Intake: IV 10 Invasive Line 4 10 Oral 238 180 Output: Urine 200 125 Other: Voiding Method External Catheter External Catheter External Catheter - Exam No acute distress, oriented 3. The patient is currently on 2 L nasal cannula. No respiratory distress, or use of accessory muscles. HEENT examination is grossly unremarkable. Mucous membranes are moist. No oral lesions. Neck supple. Full range of motion. No adenopathy thyromegaly or neck vein distention. Cardiovascular examination reveals regular rhythm rate. S1-S2 normal. No S3 or S4. No discernible murmur noted. Heart sounds distant. Heart rate 61 bpm. Lungs reveal mild bibasilar crackles. No wheezes or rhonchi. 2 L saturation is 99 percent. Breath sounds are equal bilaterally. Abdomen soft bowel sounds are heard. No masses or tenderness. Extremities are intact. No cyanosis clubbing or edema. Skin is without rash or lesion. Neurologic examination is brief but nonfocal. - Labs CBC & Chem 7: 02/21/24 06:17 02/21/24 06:17 Labs: Abnormal Lab Results - Last 24 Hours (Table) 02/20/24 02/20/24 02/20/24 Range/Units 16:22 16:36 19:59 WBC (3.8-10.6) k/uL RBC (4.30-5.90) m/uL Hgb (13.0-17.5) gm/dL Hct (39.0-53.0) % RDW (11.5-15.5) % Plt Count (150-450) k/uL Neutrophils # (1.3-7.7) k/uL PT (10.0-12.5) sec INR (<1.2) ABG pO2 109 H (83-108) mmHg ABG HCO3 29 H (21-25) mmol/L ABG O2 Saturation 97.1 H (94-97) % Sodium (137-145) mmol/L Chloride (98-107) mmol/L BUN (9-20) mg/dL Creatinine (0.66-1.25) mg/dL Glucose (74-99) mg/dL POC Glucose (mg/dL) 183 H 226 H (70-110) mg/dL Calcium (8.4-10.2) mg/dL 02/21/24 02/21/24 02/21/24 Range/Units 06:17 06:17 06:17 WBC 13.7 H (3.8-10.6) k/uL RBC 2.62 L (4.30-5.90) m/uL Hgb 8.1 L (13.0-17.5) gm/dL Hct 25.3 L (39.0-53.0) % RDW 15.6 H (11.5-15.5) % Plt Count 140 L (150-450) k/uL Neutrophils # 10.7 H (1.3-7.7) k/uL PT 32.6 H (10.0-12.5) sec INR 3.3 H (<1.2) ABG pO2 (83-108) mmHg ABG HCO3 (21-25) mmol/L ABG O2 Saturation (94-97) % Sodium 132 L (137-145) mmol/L Chloride 95 L (98-107) mmol/L BUN 88 H (9-20) mg/dL Creatinine 5.57 H (0.66-1.25) mg/dL Glucose 132 H (74-99) mg/dL POC Glucose (mg/dL) (70-110) mg/dL Calcium 7.3 L (8.4-10.2) mg/dL 02/21/24 02/21/24 Range/Units 06:31 11:20 WBC (3.8-10.6) k/uL RBC (4.30-5.90) m/uL Hgb (13.0-17.5) gm/dL Hct (39.0-53.0) % RDW (11.5-15.5) % Plt Count (150-450) k/uL Neutrophils # (1.3-7.7) k/uL PT (10.0-12.5) sec INR (<1.2) ABG pO2 (83-108) mmHg ABG HCO3 (21-25) mmol/L ABG O2 Saturation (94-97) % Sodium (137-145) mmol/L Chloride (98-107) mmol/L BUN (9-20) mg/dL Creatinine (0.66-1.25) mg/dL Glucose (74-99) mg/dL POC Glucose (mg/dL) 141 H 175 H (70-110) mg/dL Calcium (8.4-10.2) mg/dL Microbiology - Last 24 Hours (Table) 02/19/24 16:10 Blood Culture - Preliminary Blood 02/17/24 06:08 Blood Culture Gram Stain - Final Blood Blood Culture - Final Staphylococcus aureus Molecular ID Assessment and Plan Assessment: Acute hypoxemic respiratory failure, likely secondary to a combination of fluid overload and acute systolic CHF exacerbation. End-stage renal disease, receiving hemodialysis on a Thursday, Thursday, Thursday schedule. Atrial fibrillation with rapid ventricular response. Bacteremia and sepsis, secondary to methicillin sensitive Staphylococcus aureus. Hypotension and shock. Acute febrile illness. Altered mental status, possibly explained by acute metabolic encephalopathy and sepsis. Acute leukocytosis. Thrombocytopenia. Anemia of chronic disease, secondary to end-stage renal disease. Elevated troponins, suspect supply/demand mismatch. History of TAVR. History of hyperlipidemia. Obesity, with a BMI of 33.5 kg/m. Obstructive sleep apnea, with home BiPAP device. Former tobacco smoker. Plan: Plan dated February 18, 2024. I am happy to report that the patient is doing much better. He did use BiPAP last night with settings of 10/5, 30%. Currently he is getting saline at 10 cc an hour, and oxygen by nasal cannula at 2 L. We will continue to follow the patient, make recommendations along the way. The patient's overall prognosis remains guarded. Labs, x-rays, and medications are reviewed. Plan dated February 19, 2024. The patient is doing much better. He is currently on 2 L. He continues on Ancef, for the oxacillin sensitive Staphylococcus aureus in his bloodstream. Labs, x-rays, and medications are reviewed. He denies any respiratory issues such as shortness of breath, cough, wheezing, chest tightness, or phlegm production. We will continue to follow the patient, and make recommendations. Prognosis is certainly guarded. Plan dated February 20, 2024. The patient continues on Ancef. Labs, x-rays, and all medications are reviewed. The patient appears to be doing much better. The patient is currently on 2 L of oxygen. He denies any significant shortness of breath, cough, wheezing, chest tightness, or phlegm production. He also denies any fever or chills, chest pain, or any GI issues. We will continue to follow the patient, and make recommendations along the way. Labs, x-rays, and all medications have been reviewed. Plan dated February 21, 2024. The patient continues on Ancef. Labs, x-rays, medications are reviewed. The patient continues on oxygen at 2 L. His respiratory status has been stable. We will continue to follow the patient, make recommendations along the way. The patient's overall clinical condition is certainly improved. The patient will continue with his regular hemodialysis. Time with Patient: Less than 30
--- NOTE | 2024-02-21 15:51 | P.PN ---
Subjective Progress Note Date: 02/20/24 Principal diagnosis: Reason for follow-up with MSSA bacteremia Patient is a 78-year-old male with a past medical his significant for diabetes mellitus hypertension hyperlipidemia atrial fibrillation history of end-stage renal disease on dialysis through left arm AV graft patient has been brought into the hospital for fever weakness and did have bacteremia. On today's evaluation that is 02/20/2024, patient did have a low-grade fever 100.0 F at 9 AM the patient has been afebrile since then, patient is breathing comfortably and is currently on 2 L nasal cannula oxygen, patient denies having any significant cough no chest pain shortness of breath, patient denies nausea vomiting or diarrhea and no abdominal pain, patient family reported the patient seem to be slightly lethargic today compared to yesterday Patient did have white count of 12.9, creatinine is 4.11 Objective - Vital Signs Vital signs: Vital Signs Temp 98.5 F 02/20/24 15:13 Pulse 67 02/20/24 15:13 Resp 16 02/20/24 15:13 BP 124/56 02/20/24 15:13 Pulse Ox 99 02/20/24 15:13 FiO2 30 02/17/24 04:15 Intake & Output 02/19/24 02/20/24 02/20/24 18:59 06:59 18:59 Intake Total 400 248 Output Total 350 2400 200 Balance -350 -2000 48 Intake: IV 10 Invasive Line 4 10 Oral 238 Hemodialysis 400 Output: Urine 350 200 Hemodialysis 2400 Other: Voiding Method Indwelling Catheter Indwelling Catheter External Catheter - Exam GENERAL DESCRIPTION: An elderly male up in the chair in no distress RESPIRATORY SYSTEM: Unlabored breathing , decreased breath sounds at bases HEART: S1 S2 regular rate and rhythm , ABDOMEN: Soft , no tenderness EXTREMITIES: No edema feet - Labs CBC & Chem 7: 02/21/24 06:17 02/21/24 06:17 Labs: Abnormal Lab Results - Last 24 Hours (Table) 02/19/24 02/20/24 02/20/24 Range/Units 20:27 06:11 08:20 WBC (3.8-10.6) k/uL RBC (4.30-5.90) m/uL Hgb (13.0-17.5) gm/dL Hct (39.0-53.0) % RDW (11.5-15.5) % Plt Count (150-450) k/uL Neutrophils # (1.3-7.7) k/uL Lymphocytes # (1.0-4.8) k/uL PT 28.2 H (10.0-12.5) sec INR 2.9 H (<1.2) ABG pO2 (83-108) mmHg ABG HCO3 (21-25) mmol/L ABG O2 Saturation (94-97) % Sodium (137-145) mmol/L Chloride (98-107) mmol/L BUN (9-20) mg/dL Creatinine (0.66-1.25) mg/dL Glucose (74-99) mg/dL POC Glucose (mg/dL) 254 H 210 H (70-110) mg/dL Calcium (8.4-10.2) mg/dL 02/20/24 02/20/24 02/20/24 Range/Units 08:20 08:20 11:46 WBC 12.9 H (3.8-10.6) k/uL RBC 2.67 L (4.30-5.90) m/uL Hgb 8.4 L (13.0-17.5) gm/dL Hct 25.5 L (39.0-53.0) % RDW 15.7 H (11.5-15.5) % Plt Count 116 L (150-450) k/uL Neutrophils # 10.7 H (1.3-7.7) k/uL Lymphocytes # 0.9 L (1.0-4.8) k/uL PT (10.0-12.5) sec INR (<1.2) ABG pO2 (83-108) mmHg ABG HCO3 (21-25) mmol/L ABG O2 Saturation (94-97) % Sodium 133 L (137-145) mmol/L Chloride 96 L (98-107) mmol/L BUN 63 H (9-20) mg/dL Creatinine 4.11 H (0.66-1.25) mg/dL Glucose 153 H (74-99) mg/dL POC Glucose (mg/dL) 111 H (70-110) mg/dL Calcium 7.4 L (8.4-10.2) mg/dL 02/20/24 02/20/24 Range/Units 16:22 16:36 WBC (3.8-10.6) k/uL RBC (4.30-5.90) m/uL Hgb (13.0-17.5) gm/dL Hct (39.0-53.0) % RDW (11.5-15.5) % Plt Count (150-450) k/uL Neutrophils # (1.3-7.7) k/uL Lymphocytes # (1.0-4.8) k/uL PT (10.0-12.5) sec INR (<1.2) ABG pO2 109 H (83-108) mmHg ABG HCO3 29 H (21-25) mmol/L ABG O2 Saturation 97.1 H (94-97) % Sodium (137-145) mmol/L Chloride (98-107) mmol/L BUN (9-20) mg/dL Creatinine (0.66-1.25) mg/dL Glucose (74-99) mg/dL POC Glucose (mg/dL) 183 H (70-110) mg/dL Calcium (8.4-10.2) mg/dL Microbiology - Last 24 Hours (Table) 02/17/24 06:08 Blood Culture Gram Stain - Final Blood Blood Culture - Final Staphylococcus aureus Molecular ID Assessment and Plan (1) Leukocytosis Current Visit: Yes Status: Acute Code(s): D72.829 - ELEVATED WHITE BLOOD CELL COUNT, UNSPECIFIED SNOMED Code(s): 513591077 (2) MSSA bacteremia Current Visit: Yes Status: Acute Code(s): R78.81 - BACTEREMIA; B95.61 - METHICILLIN SUSCEP STAPH INFCT CAUSING DIS CLASSD ELSWHR SNOMED Code(s): 345369961 Plan: 1patient with MSSA bacteremia in this patient who do have a history of renal failure with on hemodialysis with a left arm fistula site with presentation to the hospital with weakness fall and urinary frequency however UA is negative abdominal soft no significant respiratory symptoms or hypoxemia question of possible related to the fistula site which was nonfunctioning and did have angiogram and angioplasty done this admission. 2blood cultures repeated 02/17/2024 came back positive blood culture has been repeated which are so far negative keeping in mind his TAVR procedure last year will benefit from TREY to rule out endocarditis 3-patient to continue with cefazolin, family the bedside questions were answered Dictation was produced using [employer] software. please excuse any grammatical, word or spelling errors. Time with Patient: Less than 30
--- NOTE | 2024-02-21 15:52 | P.PN ---
Subjective Progress Note Date: 02/21/24 Principal diagnosis: Reason for follow-up with MSSA bacteremia Patient is a 78-year-old male with a past medical his significant for diabetes mellitus hypertension hyperlipidemia atrial fibrillation history of end-stage renal disease on dialysis through left arm AV graft patient has been brought into the hospital for fever weakness and did have bacteremia. On today's evaluation that is 02/21/2024,the patient did not have any fever today and has been afebrile for more than 24 hours patient seen to be slightly more awake alert is breathing comfortably on 2 L nasal cannula oxygen denies any chest pain or cough no nausea vomiting abdominal pain diarrhea family has been complaining of left upper extremity more swollen than the right for which vascular surgery has been consulted Patient white count is 13.7, creatinine is 5.57 Objective - Vital Signs Vital signs: Vital Signs Temp 98.4 F 02/21/24 11:16 Pulse 64 02/21/24 13:42 Resp 16 02/21/24 11:16 BP 124/58 02/21/24 11:16 Pulse Ox 100 02/21/24 11:16 FiO2 35 02/21/24 05:34 Intake & Output 02/20/24 02/21/24 02/21/24 18:59 06:59 18:59 Intake Total 248 180 Output Total 200 125 Balance 48 -125 180 Intake: IV 10 Invasive Line 4 10 Oral 238 180 Output: Urine 200 125 Other: Voiding Method External Catheter External Catheter External Catheter - Exam GENERAL DESCRIPTION: An elderly male up in the chair in no distress RESPIRATORY SYSTEM: Unlabored breathing , decreased breath sounds at bases HEART: S1 S2 regular rate and rhythm , ABDOMEN: Soft , no tenderness EXTREMITIES: No edema feet - Labs CBC & Chem 7: 02/21/24 06:17 02/21/24 06:17 Labs: Abnormal Lab Results - Last 24 Hours (Table) 02/20/24 02/20/24 02/20/24 Range/Units 16:22 16:36 19:59 WBC (3.8-10.6) k/uL RBC (4.30-5.90) m/uL Hgb (13.0-17.5) gm/dL Hct (39.0-53.0) % RDW (11.5-15.5) % Plt Count (150-450) k/uL Neutrophils # (1.3-7.7) k/uL PT (10.0-12.5) sec INR (<1.2) ABG pO2 109 H (83-108) mmHg ABG HCO3 29 H (21-25) mmol/L ABG O2 Saturation 97.1 H (94-97) % Sodium (137-145) mmol/L Chloride (98-107) mmol/L BUN (9-20) mg/dL Creatinine (0.66-1.25) mg/dL Glucose (74-99) mg/dL POC Glucose (mg/dL) 183 H 226 H (70-110) mg/dL Calcium (8.4-10.2) mg/dL 02/21/24 02/21/24 02/21/24 Range/Units 06:17 06:17 06:17 WBC 13.7 H (3.8-10.6) k/uL RBC 2.62 L (4.30-5.90) m/uL Hgb 8.1 L (13.0-17.5) gm/dL Hct 25.3 L (39.0-53.0) % RDW 15.6 H (11.5-15.5) % Plt Count 140 L (150-450) k/uL Neutrophils # 10.7 H (1.3-7.7) k/uL PT 32.6 H (10.0-12.5) sec INR 3.3 H (<1.2) ABG pO2 (83-108) mmHg ABG HCO3 (21-25) mmol/L ABG O2 Saturation (94-97) % Sodium 132 L (137-145) mmol/L Chloride 95 L (98-107) mmol/L BUN 88 H (9-20) mg/dL Creatinine 5.57 H (0.66-1.25) mg/dL Glucose 132 H (74-99) mg/dL POC Glucose (mg/dL) (70-110) mg/dL Calcium 7.3 L (8.4-10.2) mg/dL 02/21/24 02/21/24 Range/Units 06:31 11:20 WBC (3.8-10.6) k/uL RBC (4.30-5.90) m/uL Hgb (13.0-17.5) gm/dL Hct (39.0-53.0) % RDW (11.5-15.5) % Plt Count (150-450) k/uL Neutrophils # (1.3-7.7) k/uL PT (10.0-12.5) sec INR (<1.2) ABG pO2 (83-108) mmHg ABG HCO3 (21-25) mmol/L ABG O2 Saturation (94-97) % Sodium (137-145) mmol/L Chloride (98-107) mmol/L BUN (9-20) mg/dL Creatinine (0.66-1.25) mg/dL Glucose (74-99) mg/dL POC Glucose (mg/dL) 141 H 175 H (70-110) mg/dL Calcium (8.4-10.2) mg/dL Microbiology - Last 24 Hours (Table) 02/19/24 16:10 Blood Culture - Preliminary Blood 02/17/24 06:08 Blood Culture Gram Stain - Final Blood Blood Culture - Final Staphylococcus aureus Molecular ID Assessment and Plan (1) Leukocytosis Current Visit: Yes Status: Acute Code(s): D72.829 - ELEVATED WHITE BLOOD CELL COUNT, UNSPECIFIED SNOMED Code(s): 346496360 (2) MSSA bacteremia Current Visit: Yes Status: Acute Code(s): R78.81 - BACTEREMIA; B95.61 - METHICILLIN SUSCEP STAPH INFCT CAUSING DIS CLASSD ELSWHR SNOMED Code(s): 594941198 Plan: 1patient with MSSA bacteremia in this patient who do have a history of renal failure with on hemodialysis with a left arm fistula site with presentation to the hospital with weakness fall and urinary frequency however UA is negative abdominal soft no significant respiratory symptoms or hypoxemia question of possible related to the fistula site which was nonfunctioning and did have angiogram and angioplasty done this admission. 2blood cultures repeated 02/17/2024 came back positive blood culture has been repeated 02/19/2024 which are so far negative keeping in mind his TAVR procedure last year will benefit from TREY to rule out endocarditis, we will reconsult cardiology for TREY and continue with cefazolin, family questions were answered Dictation was produced using [employer] software. please excuse any grammatical, word or spelling errors. Time with Patient: Less than 30
[2024-02-21 16:13] LABS: Glucose,Whole Blood 267 mg/dL (70-110)
[2024-02-21] MEDS: WARFARIN 1.5 MG TAB PO ONE (17:12)
[2024-02-21 20:29] LABS: Glucose,Whole Blood 211 mg/dL (70-110)
[2024-02-22 06:03] LABS: Glucose,Whole Blood 128 mg/dL (70-110)
--- NOTE | 2024-02-22 11:02 | P.PN ---
Subjective Progress Note Date: 02/22/24 Principal diagnosis: Malfunctioning AV graft Patient is seen and examined today as a follow-up. Vascular surgery was requested to see patient again regarding some left hand pain and swelling. He has a left upper extremity loop graft that was initially thought to be thrombosed however was overall patent. Patient currently denies any numbness or tingling in his hand or fingers. No pain in the left upper extremity. He is currently on BiPAP. He has been getting hemodialysis without any difficulty. Objective - Vital Signs Vital signs: Vital Signs Temp 98.5 F 02/22/24 04:00 Pulse 63 02/22/24 04:00 Resp 20 02/22/24 04:00 BP 149/68 02/22/24 04:00 Pulse Ox 100 02/22/24 04:00 FiO2 30 02/22/24 04:08 Intake & Output 02/21/24 02/22/24 02/22/24 18:59 06:59 18:59 Intake Total 180 Output Total 225 200 Balance -45 -200 Weight 106.8 kg Intake: Oral 180 Output: Urine 225 200 Other: Voiding Method External Catheter External Catheter - Exam General appearance: The patient is alert, oriented,-has BiPAP on currently. HET: Head is normocephalic and atraumatic. Pupils are equal and reactive. Neck: Supple. Abdomen: Soft, nondistended. Extremities: Normal skin color and turgor. Left upper extremity AV graft with dressing in place, palpable thrill. Left palpable radial pulse, good capillary refill in hand and fingertips. Sensorimotor intact. Neurological: No focal deficits. - Labs CBC & Chem 7: 02/21/24 06:17 02/21/24 06:17 Labs: Abnormal Lab Results - Last 24 Hours (Table) 02/21/24 02/21/24 02/21/24 Range/Units 11:20 16:12 20:26 POC Glucose (mg/dL) 175 H 267 H 211 H (70-110) mg/dL 02/22/24 Range/Units 06:01 POC Glucose (mg/dL) 128 H (70-110) mg/dL Microbiology - Last 24 Hours (Table) 02/19/24 16:10 Blood Culture - Preliminary Blood 02/20/24 08:20 Blood Culture - Preliminary Blood Assessment and Plan Assessment: 1. End-stage renal disease requiring hemodialysis 2. Left hand pain, nonvascular 3. Malfunctioning left upper extremity AV graft status post fistulogram with angioplasty of left subclavian vein and initiation of thrombolysis at the proximal aspect of graft 4. Bacteremia 5. Atrial fibrillation with RVR 6. History of coronary artery disease 7. Diabetes mellitus 8. Obstructive sleep apnea with BiPAP (1) Anemia Current Visit: Yes Status: Acute Code(s): D64.9 - ANEMIA, UNSPECIFIED SNOMED Code(s): 221068939 (2) End-stage renal disease on hemodialysis Current Visit: Yes Status: Acute Code(s): N18.6 - END STAGE RENAL DISEASE; Z99.2 - DEPENDENCE ON RENAL DIALYSIS SNOMED Code(s): 962505737 (3) Positive occult stool blood test Current Visit: Yes Status: Acute Code(s): R19.5 - OTHER FECAL ABNORMALITIES SNOMED Code(s): 60491475 (4) Atrial fibrillation with rapid ventricular response Current Visit: Yes Status: Acute Code(s): I48.91 - UNSPECIFIED ATRIAL FIBRILLATION SNOMED Code(s): 048272341597295 (5) Sepsis Current Visit: Yes Status: Acute Code(s): A41.9 - SEPSIS, UNSPECIFIED ORGA NISM SNOMED Code(s): 45700898 Plan: Patient was seen and examined. Palpable thrill of the left AV loop graft. Palpable radial pulse with good capillary refill and sensorimotor intact. Unclear etiology of hand pain does not appear to be vascular. There is no indication for any vascular surgical intervention. Patient is cleared from [facility] ular surgery for discharge. Thank you for this consultation. The impression and plan of care has been dictated as directed. I performed a history and examination of this patient, discussed the same with the dictator. I agree with the dictator's note ,documented as a scribe. Any additional findings or plans will be noted.
--- NOTE | 2024-02-22 11:03 | P.PN ---
Subjective Patient is seen in follow-up for end-stage renal disease. He is maintained on hemodialysis on Thursday schedule. Tolerating dialysis well. No chest pain or shortness of breath. Vital signs are stable. General: No acute distress. HEENT: Head exam is unremarkable. On BiPAP. LUNGS: No audible rhonchi or wheezes. HEART: Rate and Rhythm are regular. ABDOMEN: Nontender. EXTREMITITES: No edema. Objective - Vital Signs Vital signs: Vital Signs Temp 98.5 F 02/22/24 04:00 Pulse 63 02/22/24 04:00 Resp 20 02/22/24 04:00 BP 149/68 02/22/24 04:00 Pulse Ox 100 02/22/24 04:00 FiO2 30 02/22/24 08:41 Intake & Output 02/21/24 02/22/24 02/22/24 18:59 06:59 18:59 Intake Total 180 Output Total 225 200 200 Balance -45 -200 -200 Weight 106.8 kg Intake: Oral 180 Output: Urine 225 200 200 Other: Voiding Method External Catheter External Catheter - Labs CBC & Chem 7: 02/21/24 06:17 02/21/24 06:17 Labs: Abnormal Lab Results - Last 24 Hours (Table) 02/21/24 02/21/24 02/21/24 Range/Units 11:20 16:12 20:26 POC Glucose (mg/dL) 175 H 267 H 211 H (70-110) mg/dL 02/22/24 Range/Units 06:01 POC Glucose (mg/dL) 128 H (70-110) mg/dL Microbiology - Last 24 Hours (Table) 02/19/24 16:10 Blood Culture - Preliminary Blood 02/20/24 08:20 Blood Culture - Preliminary Blood Assessment and Plan Plan: Assessment: 1. End-stage renal disease maintained on hemodialysis on Thursday schedule. 2. A-fib with RVR status post Cardizem drip. On Lopressor. 3. Diabetes mellitus. 4. MSSA bacteremia on antibiotics. ID following. TREY being considered. Plan: Currently seen while undergoing hemodialysis. Next remain on Thursday. Check phosphorus level.
[2024-02-22 11:12] LABS: Glucose,Whole Blood 103 mg/dL (70-110)
--- NOTE | 2024-02-22 14:12 | P.PN ---
Subjective Progress Note Date: 02/22/24 Hospital Course: Patient is a 78-year-old male with with known diabetes, atrial fibrillation an ticoagulated with Coumadin, prior aortic valve replacement, dyslipidemia, end- stage renal disease on hemodialysis Thursday/Thursday/Thursday, and BPH who presented to the emergency department due to confusion and weakness. He had previously been to [facility] where he was noted to have a fever and elevated heart rate he was then discharged from the emergency department. When he went to go to dialysis they terminated after 1 hour due to a fever. On arrival to the emergency department he was noted to be febrile to 104.1 with a heart rate of 140. Initial laboratory analysis was remarkable for white blood cell count 19.4, platelets 131, lactic acid 2.6, troponin 0.12, and renal function consistent with his known dialysis. Influenza A/B/RSV/COVID-19 testing was negative. Initial chest x-ray demonstrated pulmonary vascular congestion. Patient was admitted for sepsis of unknown etiology and A-fib with RVR. He was to started on vancomycin and cefepime as well as a Cardizem drip. Critical care and cardiology were consulted. Echocardiogram was performed which demonstrated ejection fraction of 40 to 45% with mild to moderate perivalvular leak of his aortic valve replacement. Vascular surgery was consulted as his dialysis access is not working. And on 02/15 he underwent left upper extremity fistulogram with transluminal ballooning and thrombolysis at proximal aspect of graft. He then underwent hemodialysis and became slightly hypotensive requiring initiation of norepinephrine. He was subsequently transferred to the ICU. He had melanic stools. His hemoglobin stabilized and he had a recent outpatient colonoscopy without active bleeding. Blood cultures came back positive for MSSA. Currently on cefazolin. Patient does have a history of bioprosthetic aortic valve, TREY is pending. Also concern for possible aspiration. Subjective: Patient seen and examined at bedside. No acute events overnight. Currently getting dialysis. On BiPAP while sleeping. Pertinent positives and negatives as discussed above, a complete review of systems was performed and all other systems are negative. Vitals Signs Reviewed. General: Nontoxic, no distress, appears at stated age, getting dialysis, on BiPAP while getting dialysis Derm: Warm, dry Head: Atraumatic, normocephalic, symmetric Eyes: EOMI, no lid lag, anicteric sclera Mouth: No lip lesion, mucus membranes moist Cardiovascular: S1S2 reg, no murmur Lungs: CTA bilateral, no rhonchi, no rales, no accessory muscle use Abdominal: Soft, nontender to palpation, no guarding, no appreciable organomegaly Ext: No gross muscle atrophy, trace peripheral edema, no contractures Neuro: CN II-XI grossly intact, no focal neuro deficits Psych: Alert, oriented, appropriate affect Data Reviewed Today: Pertinent Labs: Blood glucose range between 103-211, CBC, BMP, magnesium pending. Blood cultures from 1917 no growth to date. Imaging: No new imaging. Assessment and Plan: Patient has severely ill, needs close monitoring. Prognosis guarded MSSA bacteremia with sepsis -Unclear source, possibly dialysis access -Continue IV cefazolin 2 g every 12 hours -Patient's last cultures done on 02/17/2024 are positive -Blood cultures from 02/19/2024 are negative to date -Infectious disease following, continue with cefazolin, no need for PICC line as it will go with dialysis. -Cardiology was consulted for TREY, patient does have a history of bioprosthetic aortic valve End-stage renal disease on hemodialysis Thursday/Thursday/Thursday Malfunction AV graft- s/p angioplasty/thrombolysis of left subclavian vein -Nephrology note reviewed, check phosphorus level - Vascular note reviewed, now signed off Melena, possible lower GI bleed Normocytic anemia, probable acute blood loss with chronic renal disease and dialysis -Hemoglobin continues to downtrend, no further bloody bowel movements - GI was previously consulted, continue with Protonix for GI prophylaxis, diet as tolerated, recent colonoscopy with no active bleeding but positive occult stool. No plans for repeat endoscopic evaluation. - no indication for transfusion -Patient is on Coumadin pharmacy to dose -Repeat CBC pending Acute exacerbation of systolic congestive heart failure with ejection fraction 40 to 45% Atrial fibrillation with rapid ventricular response anticoagulated with coumadin Supratherapeutic INR Type II non-STEMI Dyslipidemia History of TAVR -Cardiology following, patient restarted on Coumadin, pharmacy to dose -Lipitor 10 mg at night -Metoprolol 25 mg oral 3 times daily Possible aspiration -Speech therapy consulted, pending recommendations Thrombocytopenia - continue to follow CBC - no indication for transfusion -Improving Diabetes mellitus type 2 with hyperglycemia -At home patient takes Lantus 45 units at night and Alogliptin -A1c 8.8 -Continue Levemir 24 units at night, fixed dose NovoLog 2 units with each meal and continue with sliding scale insulin, monitor for hypoglycemia DVT prophylaxis: Coumadin Anticipated discharge date: Pending clinical course Anticipated discharge place: Pending clinical course Objective - Vital Signs Vital signs: Vital Signs Temp 98.4 F 02/22/24 12:30 Pulse 57 L 02/22/24 12:30 Resp 18 02/22/24 12:30 BP 145/61 02/22/24 12:30 Pulse Ox 94 L 02/22/24 12:30 FiO2 30 02/22/24 12:30 Intake & Output 02/21/24 02/22/24 02/22/24 18:59 06:59 18:59 Intake Total 180 Output Total 225 200 200 Balance -45 -200 -200 Weight 106.8 kg Intake: Oral 180 Output: Urine 225 200 200 Other: Voiding Method External Catheter External Catheter External Catheter - Labs CBC & Chem 7: 02/21/24 06:17 02/21/24 06:17 Labs: Abnormal Lab Results - Last 24 Hours (Table) 02/21/24 02/21/24 02/22/24 Range/Units 16:12 20:26 06:01 POC Glucose (mg/dL) 267 H 211 H 128 H (70-110) mg/dL Microbiology - Last 24 Hours (Table) 02/19/24 16:10 Blood Culture - Preliminary Blood 02/20/24 08:20 Blood Culture - Preliminary Blood
[2024-02-22 15:24] LABS: HCT 27.3 % (39.0-53.0); HGB 9.3 gm/dL (13.0-17.5); MCH 31.9 pg (25.0-35.0); MCHC 34.2 g/dL (31.0-37.0); MCV 93.5 fL (80.0-100.0); Mean Platelet Volume 9.5; Platelet Count 192 k/uL (150-450); RBC 2.92 m/uL (4.30-5.90); RDW 15.4 % (11.5-15.5); WBC 17.7 k/uL (3.8-10.6)
--- NOTE | 2024-02-22 15:28 | P.PN ---
Subjective Progress Note Date: 02/22/24 On today's evaluation of 02/22/2024, seen the patient for a follow-up. The patient is currently undergoing hemodialysis and is resting comfortably in bed while awaiting a BiPAP at a pressure of 10/5 with an FiO2 of 30%. No significant respiratory distress at this point in time. Noted the patient had staphylococcal bacteremia/MSSA and the patient is currently on IV cefazolin. Pulse ox is in the order of 94% while wearing the BiPAP. No labs are available from today. Yesterday's labs were noted. The white cell count at 13.7 with a hemoglobin of 8.1 and a platelet count of 140. The most recent chest x-ray from 02/18/2024 showed cardiomegaly and mild pulm vascular congestion. No evidence of any consolidation or airspace disease. Echocardiogram on 02/16/2024 showed left- ventricular ejection fraction of 40 to 45%, global hypokinesis, moderately decreased LV function, the aortic valve had some mild to moderate para valvular leak otherwise, no other significant valvular abnormalities noted. The patient is otherwise calm and comfortable. His comorbid conditions include end-stage renal disease on hemodialysis 3 times a week and the patient has a malfunctioning AV graft and the patient is status post angioplasty and thrombolysis of the left subclavian vein. Nephrology on the case. Vascular surgery is also on the case. Hemoglobin is stable for now and there is no evidence of any GI bleeding. The patient has been anticoagulated regarding chronic atrial fibrillation. The patient has hyperlipidemia, diabetes mellitus type 2 as comorbid conditions. The patient is post TAVR procedure with some mild to moderate aortic valvular leak. Objective - Vital Signs Vital signs: Vital Signs Temp 98.2 F 02/22/24 08:10 Pulse 68 02/22/24 08:10 Resp 16 02/22/24 08:10 BP 142/64 02/22/24 08:10 Pulse Ox 100 02/22/24 08:10 FiO2 30 02/22/24 08:41 Intake & Output 02/21/24 02/22/24 02/22/24 18:59 06:59 18:59 Intake Total 180 Output Total 225 200 200 Balance -45 -200 -200 Weight 106.8 kg Intake: Oral 180 Output: Urine 225 200 200 Other: Voiding Method External Catheter External Catheter External Catheter - Exam No acute distress, oriented 3. The patient is currently on BiPAP which is r unning at a pressure of 10/5 with an FiO2 of 30%, no signs of any significant respiratory distress head exam was generally normal. There was no scleral icterus or corneal arcus. Mucous membranes were moist. HEENT examination is grossly unremarkable. Mucous membranes are moist. No oral lesions. Neck supple. Full range of motion. No adenopathy thyromegaly or neck vein distention. Cardiovascular examination reveals regular rhythm rate. S1-S2 normal. No S3 or S4. No discernible murmur noted. Heart sounds distant. Lungs reveal mild bibasilar crackles. No wheezes or rhonchi. Breath sounds are equal bilaterally. Abdomen soft bowel sounds are heard. No masses or tenderness. Extremities are intact. No cyanosis clubbing or edema. Skin is without rash or lesion. Neurologic examination is brief but nonfocal. - Labs CBC & Chem 7: 02/22/24 14:31 02/21/24 06:17 Labs: Abnormal Lab Results - Last 24 Hours (Table) 02/21/24 02/21/24 02/22/24 Range/Units 16:12 20:26 06:01 POC Glucose (mg/dL) 267 H 211 H 128 H (70-110) mg/dL Microbiology - Last 24 Hours (Table) 02/19/24 16:10 Blood Culture - Preliminary Blood 02/20/24 08:20 Blood Culture - Preliminary Blood Assessment and Plan Plan: Acute hypoxemic respiratory failure, likely secondary to a combination of fluid overload and acute systolic CHF exacerbation. Clinically improved. The patient still requiring BiPAP use at a pressure of 10/5 with an FiO2 of 35%. This is being alternated with oxygen nasal cannula 2 L. Chest x-ray needs to be repeated. The patient is undergoing periodic hemodialysis. End-stage renal disease, receiving hemodialysis on a Thursday, Thursday, Thursday schedule. The patient apparently had a nonfunctioning AV fistula, and, the patient was to undergo a left upper extremity fistulogram, with ultrasound- guided access, PTBA, and thrombolysis. Subsequent to the graft working Atrial fibrillation with rapid ventricular response, rate is under adequate control for now Staph aureus sepsis and the patient presented with bacteremia and sepsis, secondary to methicillin sensitive Staphylococcus aureus. The patient remains on IV cefazolin. No indication of any endocarditis based on the transthoracic echocardiogram. History of TAVR with aortic valve replacement with mild to moderate aortic valvular leak Hypotension and shock, recovered and the patient is hemodynamically stable Acute febrile illness, currently afebrile Altered mental status, possibly explained by acute metabolic encephalopathy and sepsis, improving Acute leukocytosis, secondary to above Thrombocytopenia, chronic Anemia of chronic disease, secondary to end-stage renal disease. Elevated troponins, suspect supply/demand mismatch. History of TAVR. History of hyperlipidemia. Obesity, with a BMI of 33.5 kg/m. Obstructive sleep apnea, with home BiPAP device. Former tobacco smoker. Plan: Continue alternating BiPAP with nasal cannula 2 L/min Repeat chest x-ray in the morning continue IV cefazolin Hemodynamically stable Hemodialysis per nephrology and the patient is undergoing a session of hemodialysis this morning Repeat labs Awaiting follow-up blood cultures Overall condition is stable and will continue to follow.
[2024-02-22 15:48] LABS: African American GFR (CKD) 20 (>60 ml/min/1.73 sqM); Anion Gap 12 mmol/L; Blood Urea Nitrogen 57 mg/dL (9-20); Calcium 7.6 mg/dL (8.4-10.2); Carbon Dioxide 23 mmol/L (22-30); Chloride 96 mmol/L (98-107); Glucose 135 mg/dL (74-99); Non-African American GFR(CKD) 17 (>60 ml/min/1.73 sqM); Sodium 131 mmol/L (137-145)
[2024-02-22 15:55] LABS: Magnesium 1.9 mg/dL (1.6-2.3); Potassium 4.3 mmol/L (3.5-5.1)
[2024-02-22 16:25] LABS: Band Neutrophils % 4 %; Eosinophils # (M) 0.53 k/uL (0-0.7); Lymphocytes # (M) 0.89 k/uL (1.0-4.8); Metamyelocytes # (M) 0.18 k/uL (0); Metamyelocytes % 1 %; Monocytes # (M) 2.12 k/uL (0-1.0); Myelocytes # (M) 0.18 k/uL (0); Myelocytes % 1 %; Neutrophils % (M) 76 %; Nucleated Red Blood Cells 0 /100 WBC (0-0); Total Cells Counted 200
[2024-02-22 16:27] LABS: Glucose,Whole Blood 158 mg/dL (70-110)
[2024-02-22 19:35] LABS: INR 3.8 (<1.2); Prothrombin Time 37.4 sec (10.0-12.5)
[2024-02-22 20:35] LABS: Glucose,Whole Blood 276 mg/dL (70-110)
[2024-02-22] MEDS: WARFARIN 0.5 MG TAB PO ONE (20:57)
[2024-02-23 06:02] LABS: Glucose,Whole Blood 184 mg/dL (70-110)
--- NOTE | 2024-02-23 08:02 | P.PN ---
Subjective Progress Note Date: 02/22/24 Principal diagnosis: Reason for follow-up with MSSA bacteremia Patient is a 78-year-old male with a past medical his significant for diabetes mellitus hypertension hyperlipidemia atrial fibrillation history of end-stage renal disease on dialysis through left arm AV graft patient has been brought into the hospital for fever weakness and did have bacteremia. On today's evaluation that is 02/22/2024,the patient remains to be afebrile, patient is on 2 L nasal cannula supplemental oxygen and denies any shortness of breath no chest pain or cough.Patient denies having any nausea or vomiting, no abdominal pain and no diarrhea has been reported, no new symptoms. Patient white count 17.7 creatinine 3.26 blood culture repeat from 02/19/2024 and 02/20/2024 so far negative Objective - Vital Signs Vital signs: Vital Signs Temp 98.4 F 02/22/24 12:30 Pulse 57 L 02/22/24 12:30 Resp 18 02/22/24 12:30 BP 145/61 02/22/24 12:30 Pulse Ox 94 L 02/22/24 12:30 FiO2 30 02/22/24 12:30 Intake & Output 02/21/24 02/22/24 02/22/24 18:59 06:59 18:59 Intake Total 180 Output Total 225 200 200 Balance -45 -200 -200 Weight 106.8 kg Intake: Oral 180 Output: Urine 225 200 200 Other: Voiding Method External Catheter External Catheter External Catheter - Exam GENERAL DESCRIPTION: An elderly male up in the chair in no distress RESPIRATORY SYSTEM: Unlabored breathing , decreased breath sounds at bases HEART: S1 S2 regular rate and rhythm , ABDOMEN: Soft , no tenderness EXTREMITIES: No edema feet - Labs CBC & Chem 7: 02/22/24 14:31 02/22/24 14:31 Labs: Abnormal Lab Results - Last 24 Hours (Table) 02/21/24 02/21/24 02/22/24 Range/Units 16:12 20:26 06:01 POC Glucose (mg/dL) 267 H 211 H 128 H (70-110) mg/dL Microbiology - Last 24 Hours (Table) 02/19/24 16:10 Blood Culture - Preliminary Blood 02/20/24 08:20 Blood Culture - Preliminary Blood Assessment and Plan (1) Leukocytosis Current Visit: Yes Status: Acute Code(s): D72.829 - ELEVATED WHITE BLOOD CELL COUNT, UNSPECIFIED SNOMED Code(s): 574718266 (2) MSSA bacteremia Current Visit: Yes Status: Acute Code(s): R78.81 - BACTEREMIA; B95.61 - METHICILLIN SUSCEP STAPH INFCT CAUSING DIS CLASSD ELSWHR SNOMED Code(s): 911669667 Plan: 1patient with MSSA bacteremia in this patient who do have a history of renal failure with on hemodialysis with a left arm fistula site with presentation to the hospital with weakness fall and urinary frequency however UA is negative abdominal soft no significant respiratory symptoms or hypoxemia question of possible related to the fistula site which was nonfunctioning and did have angiogram and angioplasty done this admission. 2blood cultures repeated 02/17/2024 came back positive blood culture has been repeated 02/19/2024 as well as 02/20/2024 are so far negative keeping in mind his TAVR procedure, cardiology has been consulted for TREY await completion continue with the cefazolin Dictation was produced using [employer] dictation software. please excuse any grammatical, word or spelling errors. Time with Patient: Less than 30
--- NOTE | 2024-02-23 08:38 | XR ---
EXAMINATION TYPE: XR chest 1V DATE OF EXAM: 02/23/2024 7:22 AM CLINICAL INDICATION:Male, 78 years old with history of CHF/fluid overload; [facility] COMPARISON: Chest radiograph from 02/18/2024. TECHNIQUE: XR chest 1V Frontal view of the chest. FINDINGS: Lungs/Pleura: There is no evidence of pleural effusion, focal consolidation, or pneumothorax. Densit y along the right lateral pleura on the left lateral pleura Pulmonary vascularity: Mild pulmonary vascular congestion. Heart/mediastinum: Cardiomediastinal silhouette is prominent in size. 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 Atherosclerosis of the aorta. Musculoskeletal: No acute osseous pathology. IMPRESSION: 1. No significant change in suggested mild pulmonary vascular congestion. Correlate with serum BNP. 2. Calcifications along the pleura suggestive of prior asbestos exposure and possibly asbestos relat ed interstitial lung disease.
[2024-02-23 10:54] LABS: INR 3.9 (<1.2); Prothrombin Time 38.4 sec (10.0-12.5)
[2024-02-23 11:09] LABS: Basophils # (A) 0.1 k/uL (0-0.2); Basophils % (A) 1 %; Eosinophils # (A) 0.2 k/uL (0-0.7); Eosinophils % (A) 1 %; HCT 24.3 % (39.0-53.0); Lymphocytes # (A) 0.9 k/uL (1.0-4.8); Lymphocytes % (A) 6 %; MCH 31.6 pg (25.0-35.0); MCHC 33.1 g/dL (31.0-37.0); MCV 95.4 fL (80.0-100.0); Mean Platelet Volume 8.9; Monocytes # (A) 0.9 k/uL (0-1.0); Monocytes % (A) 6 %; Neutrophils # (A) 13.1 k/uL (1.3-7.7); Neutrophils % (A) 85 %; Platelet Count 211 k/uL (150-450); RBC 2.55 m/uL (4.30-5.90); RDW 15.5 % (11.5-15.5); WBC 15.5 k/uL (3.8-10.6)
[2024-02-23 11:26] LABS: African American GFR (CKD) 11 (>60 ml/min/1.73 sqM); Anion Gap 8 mmol/L; Blood Urea Nitrogen 77 mg/dL (9-20); Calcium 7.5 mg/dL (8.4-10.2); Carbon Dioxide 30 mmol/L (22-30); Chloride 94 mmol/L (98-107); Glucose 118 mg/dL (74-99); Non-African American GFR(CKD) 10 (>60 ml/min/1.73 sqM); Phosphorus 7.2 mg/dL (2.5-4.5); Potassium 3.9 mmol/L (3.5-5.1); Sodium 132 mmol/L (137-145)
--- NOTE | 2024-02-23 11:29 | P.PN ---
Subjective Progress Note Date: 02/23/24 HISTORY OF PRESENT ILLNESS: This is a 78-year-old female with a past medical history significant for end- stage renal disease on hemodialysis, obstructive sleep apnea with CPAP use, hypertension, hyperlipidemia, diabetes, atrial flutter/fibrillation. 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 He follows with a physician at [facility]. We have been asked to see the patient in consultation for AF with RVR. Patient examined at the bedside in the ER. Patient was found to be septic and workup is ongoing per primary medicine. Patient was found to be in atrial fibrillation/flutter with RVR. Patient was placed on IV Cardizem which has since been discontinued. His rates are controlled at the time of examination. He is currently undergoing hemodialysis. Patient was placed on IV heparin. His Co umadin has not been resumed. DIAGNOSTICS: - EKG reveals atrial flutter with RVR. Left BBB - Chest xray cardiomegaly, pulmonary vascular congestion and bilateral pleural effusions - Laboratory data: BC 17.4. Hemoglobin 9.8. Platelet count 92. INR 1.9. Sodium 136. Potassium 3.5. BUN 87. Creatinine 4.79. Troponin 0.276 - Current home cardiac medications include Lovastatin 10 mg daily and Coumadin 2.5mg daily 02/18/2024 Patient examined this morning at the bedside. Currently denies chest pain or pressure. He denies shortness of breath. Telemetry reveals sinus mechanism. Patient's Coumadin has been placed on hold secondary to drop in hemoglobin. Hemoglobin this morning is improved at 9.3. Echocardiogram completed revealing ejection fraction 40 to 45%, false tendon seen in LV, mild MR, TAVR valve without stenosis, mild to moderate perivalvular aortic regurgitation, mild tricuspid regurgitation. 02/22 Cardiology signed off this case on [id number] but we have been asked to reassess the p atient for TREY due to bacteremia. Patient has been maintained on IV cefazolin. Patient is currently on BiPAP, blood pressure 132/73, heart rate 63. Repeat blood work reveals WBC 15.5, hemoglobin 8, INR is 3.9. PHYSICAL EXAM: VITAL SIGNS: Reviewed. GENERAL: Well-developed in no acute distress. HEENT: Head is normocephalic. Pupils are equal, round. Sclerae anicteric. Mucous membranes of the mouth are moist. Neck supple. No JVD or thyromegaly LUNGS: Respirations even and unlabored. Lungs essentially clear to auscultation bilaterally. HEART: Irregular rate and rhythm. S1 and S2 heard. + systolic murmur at the base ABDOMEN: Soft. Nondistended. Nontender. EXTREMITIES: No clubbing or cyanosis. Peripheral pulses intact. No lower extremity edema ASSESSMENT: Sepsis with Staph aureus bacteremia of unclear etiology Atrial fibrillation with RVR, paroxysmal Left bundle branch block End-stage renal disease on hemodialysis Abnormal troponin, likely secondary to CKD Anemia of chronic disease Hypertension Hyperlipidemia Diabetes Obstructive sleep apnea with CPAP use History of TAVR, July 2023, [facility] PLAN: Agree that patient will need TREY brought will postpone until respiratory status is stable. Continue cardiac medications: Atorvastatin, Lasix, Lopressor, Coumadin-pharmacy dosing Further recommendations pending patient course Nurse practitioner note has been reviewed by physician. Signing provider agrees with the documented findings, assessment, and plan of care documented by [employer]ER as a scribe. Objective - Vital Signs Vital signs: Vital Signs Temp 98.3 F 02/23/24 04:00 Pulse 61 02/23/24 04:00 Resp 17 02/23/24 04:00 BP 117/66 02/23/24 04:00 Pulse Ox 99 02/23/24 04:00 FiO2 30 02/23/24 05:40 Intake & Output 02/22/24 02/23/24 02/23/24 18:59 06:59 18:59 Intake Total 280 400 Output Total 200 2400 Balance 80 -2000 Weight 105 kg Intake: Intake, IV Titration 100 Amount ceFAZolin 2 gm In Sodium 100 Chloride 0.9% 50 ml @ 100 mls/hr IVPB Q12H [facility] [place] Rx# :[id number] Oral 180 Hemodialysis 400 Output: Urine 200 Hemodialysis 2400 Other: Voiding Method External Catheter External Catheter - Labs CBC & Chem 7: 02/23/24 10:01 02/22/24 14:31 Labs: Abnormal Lab Results - Last 24 Hours (Table) 02/22/24 02/22/24 02/22/24 Range/Units 14:31 14:31 16:25 WBC 17.7 H (3.8-10.6) k/uL RBC 2.92 L (4.30-5.90) m/uL Hgb 9.3 L (13.0-17.5) gm/dL Hct 27.3 L (39.0-53.0) % Neutrophils # (Manual) 14.10 H (1.3-7.7) k/uL Lymphocytes # (Manual) 0.89 L (1.0-4.8) k/uL Monocytes # (Manual) 2.12 H (0-1.0) k/uL Metamyelocytes # (Man) 0.18 H (0) k/uL Myelocytes # (Manual) 0.18 H (0) k/uL PT (10.0-12.5) sec INR (<1.2) Sodium 131 L (137-145) mmol/L Chloride 96 L (98-107) mmol/L BUN 57 H (9-20) mg/dL Creatinine 3.26 H (0.66-1.25) mg/dL Glucose 135 H (74-99) mg/dL POC Glucose (mg/dL) 158 H (70-110) mg/dL Calcium 7.6 L (8.4-10.2) mg/dL 02/22/24 02/22/24 02/23/24 Range/Units 18:53 20:17 05:46 WBC (3.8-10.6) k/uL RBC (4.30-5.90) m/uL Hgb (13.0-17.5) gm/dL Hct (39.0-53.0) % Neutrophils # (Manual) (1.3-7.7) k/uL Lymphocytes # (Manual) (1.0-4.8) k/uL Monocytes # (Manual) (0-1.0) k/uL Metamyelocytes # (Man) (0) k/uL Myelocytes # (Manual) (0) k/uL PT 37.4 H (10.0-12.5) sec INR 3.8 H (<1.2) Sodium (137-145) mmol/L Chloride (98-107) mmol/L BUN (9-20) mg/dL Creatinine (0.66-1.25) mg/dL Glucose (74-99) mg/dL POC Glucose (mg/dL) 276 H 184 H (70-110) mg/dL Calcium (8.4-10.2) mg/dL Microbiology - Last 24 Hours (Table) 02/19/24 16:10 Blood Culture - Preliminary Blood 02/20/24 08:20 Blood Culture - Preliminary Blood
[2024-02-23 11:43] LABS: Glucose,Whole Blood 132 mg/dL (70-110)
--- NOTE | 2024-02-23 12:10 | P.PN ---
Subjective Patient is seen in follow-up for end-stage renal disease. He is maintained on hemodialysis on Thursday schedule. No problems with dialysis yesterday. No chest pain or shortness of breath. present at bedside. Vital signs are stable. General: No acute distress. HEENT: Head exam is unremarkable. On nasal cannula. LUNGS: No audible rhonchi or wheezes. HEART: Rate and Rhythm are regular. ABDOMEN: Nontender. EXTREMITITES: No edema. Objective - Vital Signs Vital signs: Vital Signs Temp 98.3 F 02/23/24 08:35 Pulse 63 02/23/24 08:35 Resp 18 02/23/24 08:35 BP 132/73 02/23/24 08:35 Pulse Ox 99 02/23/24 08:35 FiO2 30 02/23/24 08:35 Intake & Output 02/22/24 02/23/24 02/23/24 18:59 06:59 18:59 Intake Total 280 400 Output Total 200 2400 Balance 80 -2000 Weight 105 kg Intake: Intake, IV Titration 100 Amount ceFAZolin 2 gm In Sodium 100 Chloride 0.9% 50 ml @ 100 mls/hr IVPB Q12H [facility] Rx# :[id number] Oral 180 Hemodialysis 400 Output: Urine 200 Hemodialysis 2400 Other: Voiding Method External Catheter External Catheter External Catheter - Labs CBC & Chem 7: 02/23/24 10:01 02/23/24 10:01 Labs: Abnormal Lab Results - Last 24 Hours (Table) 02/22/24 02/22/24 02/22/24 Range/Units 14:31 14:31 16:25 WBC 17.7 H (3.8-10.6) k/uL RBC 2.92 L (4.30-5.90) m/uL Hgb 9.3 L (13.0-17.5) gm/dL Hct 27.3 L (39.0-53.0) % Neutrophils # (1.3-7.7) k/uL Neutrophils # (Manual) 14.10 H (1.3-7.7) k/uL Lymphocytes # (1.0-4.8) k/uL Lymphocytes # (Manual) 0.89 L (1.0-4.8) k/uL Monocytes # (Manual) 2.12 H (0-1.0) k/uL Metamyelocytes # (Man) 0.18 H (0) k/uL Myelocytes # (Manual) 0.18 H (0) k/uL PT (10.0-12.5) sec INR (<1.2) Sodium 131 L (137-145) mmol/L Chloride 96 L (98-107) mmol/L BUN 57 H (9-20) mg/dL Creatinine 3.26 H (0.66-1.25) mg/dL Glucose 135 H (74-99) mg/dL POC Glucose (mg/dL) 158 H (70-110) mg/dL Calcium 7.6 L (8.4-10.2) mg/dL Phosphorus (2.5-4.5) mg/dL 02/22/24 02/22/24 02/23/24 Range/Units 18:53 20:17 05:46 WBC (3.8-10.6) k/uL RBC (4.30-5.90) m/uL Hgb (13.0-17.5) gm/dL Hct (39.0-53.0) % Neutrophils # (1.3-7.7) k/uL Neutrophils # (Manual) (1.3-7.7) k/uL Lymphocytes # (1.0-4.8) k/uL Lymphocytes # (Manual) (1.0-4.8) k/uL Monocytes # (Manual) (0-1.0) k/uL Metamyelocytes # (Man) (0) k/uL Myelocytes # (Manual) (0) k/uL PT 37.4 H (10.0-12.5) sec INR 3.8 H (<1.2) Sodium (137-145) mmol/L Chloride (98-107) mmol/L BUN (9-20) mg/dL Creatinine (0.66-1.25) mg/dL Glucose (74-99) mg/dL POC Glucose (mg/dL) 276 H 184 H (70-110) mg/dL Calcium (8.4-10.2) mg/dL Phosphorus (2.5-4.5) mg/dL 02/23/24 02/23/24 02/23/24 Range/Units 10:01 10:01 10:01 WBC 15.5 H (3.8-10.6) k/uL RBC 2.55 L (4.30-5.90) m/uL Hgb 8.0 L (13.0-17.5) gm/dL Hct 24.3 L (39.0-53.0) % Neutrophils # 13.1 H (1.3-7.7) k/uL Neutrophils # (Manual) (1.3-7.7) k/uL Lymphocytes # 0.9 L (1.0-4.8) k/uL Lymphocytes # (Manual) (1.0-4.8) k/uL Monocytes # (Manual) (0-1.0) k/uL Metamyelocytes # (Man) (0) k/uL Myelocytes # (Manual) (0) k/uL PT 38.4 H (10.0-12.5) sec INR 3.9 H (<1.2) Sodium 132 L (137-145) mmol/L Chloride 94 L (98-107) mmol/L BUN 77 H (9-20) mg/dL Creatinine 5.38 H (0.66-1.25) mg/dL Glucose 118 H (74-99) mg/dL POC Glucose (mg/dL) (70-110) mg/dL Calcium 7.5 L (8.4-10.2) mg/dL Phosphorus 7.2 H (2.5-4.5) mg/dL 02/23/24 Range/Units 11:41 WBC (3.8-10.6) k/uL RBC (4.30-5.90) m/uL Hgb (13.0-17.5) gm/dL Hct (39.0-53.0) % Neutrophils # (1.3-7.7) k/uL Neutrophils # (Manual) (1.3-7.7) k/uL Lymphocytes # (1.0-4.8) k/uL Lymphocytes # (Manual) (1.0-4.8) k/uL Monocytes # (Manual) (0-1.0) k/uL Metamyelocytes # (Man) (0) k/uL Myelocytes # (Manual) (0) k/uL PT (10.0-12.5) sec INR (<1.2) Sodium (137-145) mmol/L Chloride (98-107) mmol/L BUN (9-20) mg/dL Creatinine (0.66-1.25) mg/dL Glucose (74-99) mg/dL POC Glucose (mg/dL) 132 H (70-110) mg/dL Calcium (8.4-10.2) mg/dL Phosphorus (2.5-4.5) mg/dL Microbiology - Last 24 Hours (Table) 02/19/24 16:10 Blood Culture - Preliminary Blood 02/20/24 08:20 Blood Culture - Preliminary Blood Assessment and Plan Plan: Assessment: 1. End-stage renal disease maintained on hemodialysis on Thursday schedule. 2. A-fib with RVR status post Cardizem drip. On Lopressor. 3. Diabetes mellitus. 4. MSSA bacteremia on antibiotics. ID following. TREY being considered. 5. Hyperphosphatemia secondary to chronic kidney disease. Plan: Hemodialysis tomorrow. Add PhosLo with meals. Stop IV Lasix. Add torsemide 40 mg once daily.
[2024-02-23] MEDS: CALCIUM ACETATE 667 MG TAB PO SCH (13:05)
--- NOTE | 2024-02-23 13:36 | P.PN ---
Subjective Progress Note Date: 02/23/24 Hospital Course: Patient is a 78-year-old male with with known diabetes, atrial fibrillation an ticoagulated with Coumadin, prior aortic valve replacement, dyslipidemia, end- stage renal disease on hemodialysis Thursday/Thursday/Thursday, and BPH who presented to the emergency department due to confusion and weakness. He had previously been to [facility] where he was noted to have a fever and elevated heart rate he was then discharged from the emergency department. When he went to go to dialysis they terminated after 1 hour due to a fever. On arrival to the emergency department he was noted to be febrile to 104.1 with a heart rate of 140. Initial laboratory analysis was remarkable for white blood cell count 19.4, platelets 131, lactic acid 2.6, troponin 0.12, and renal function consistent with his known dialysis. Influenza A/B/RSV/COVID-19 testing was negative. Initial chest x-ray demonstrated pulmonary vascular congestion. Patient was admitted for sepsis of unknown etiology and A-fib with RVR. He was to started on vancomycin and cefepime as well as a Cardizem drip. Critical care and cardiology were consulted. Echocardiogram was performed which demonstrated ejection fraction of 40 to 45% with mild to moderate perivalvular leak of his aortic valve replacement. Vascular surgery was consulted as his dialysis access is not working. And on 02/15 he underwent left upper extremity fistulogram with transluminal ballooning and thrombolysis at proximal aspect of graft. He then underwent hemodialysis and became slightly hypotensive requiring initiation of norepinephrine. He was subsequently transferred to the ICU. He had melanic stools. His hemoglobin stabilized and he had a recent outpatient colonoscopy without active bleeding. Blood cultures came back positive for MSSA. Currently on cefazolin. Patient does have a history of bioprosthetic aortic valve, TREY is pending. There was concern for possible aspiration. Speech therapy was consulted. 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 This can be advanced once mentation improves. Due to worsening mentation, CT head was ordered. Subjective: Patient seen and examined at bedside. No acute events overnight. Per , patient has been more encephalopathic. On BiPAP while sleeping. Pertinent positives and negatives as discussed above, a complete review of systems was performed and all other systems are negative. Vitals Signs Reviewed. General: Nontoxic, no distress, appears at stated age Derm: Warm, dry Head: Atraumatic, normocephalic, symmetric Eyes: EOMI, no lid lag, anicteric sclera Mouth: No lip lesion, mucus membranes moist Cardiovascular: S1S2 reg, no murmur Lungs: CTA bilateral, no rhonchi, no rales, no accessory muscle use Abdominal: Soft, nontender to palpation, no guarding, no appreciable organomeg yoana Ext: No gross muscle atrophy, trace peripheral edema, no contractures Neuro: CN II-XI grossly intact, no focal neuro deficits Psych: Alert, oriented, appropriate affect Data Reviewed Today: Pertinent Labs: WBC 15.5, hemoglobin 8, INR 3.9, creatinine 5.38, blood sugars range between 1 32-1 84 Imaging: No new imaging. Assessment and Plan: Patient has severely ill, needs close monitoring. Prognosis guarded Acute metabolic encephalopathy -CT head ordered -No focal deficits MSSA bacteremia with sepsis -Unclear source, possibly dialysis access -Continue IV cefazolin 2 g every 12 hours -Patient's last cultures done on 02/17/2024 are positive -Blood cultures from 02/19/2024 are negative to date -Infectious disease following, continue with cefazolin, no need for PICC line as it will go with dialysis. -Cardiology was consulted for TREY, patient does have a history of bioprosthetic aortic valve -Cardiology note reviewed, TREY once respiratory function improves End-stage renal disease on hemodialysis Thursday/Thursday/Thursday Malfunction AV graft- s/p angioplasty/thrombolysis of left subclavian vein -Nephrology note reviewed, PhosLo added with meals, IV Lasix discontinued, started on torsemide 40 mg daily - Vascular now signed off Melena, possible lower GI bleed Normocytic anemia, probable acute blood loss with chronic renal disease and dialysis -Hemoglobin continues to downtrend, no further bloody bowel movements - GI was previously consulted, continue with Protonix for GI prophylaxis, diet as tolerated, recent colonoscopy with no active bleeding but positive occult stool. No plans for repeat endoscopic evaluation. - no indication for transfusion -Patient is on Coumadin pharmacy to dose -Hemoglobin currently stable Acute exacerbation of systolic congestive heart failure with ejection fraction 40 to 45% Atrial fibrillation with rapid ventricular response anticoagulated with coumadin Supratherapeutic INR Type II non-STEMI Dyslipidemia History of TAVR -Cardiology following, patient restarted on Coumadin, pharmacy to dose -Lipitor 10 mg at night -Metoprolol 25 mg oral 3 times daily Thrombocytopenia - continue to follow CBC - no indication for transfusion -Improving Diabetes mellitus type 2 with hyperglycemia -At home patient takes Lantus 45 units at night and Alogliptin -A1c 8.8 -Continue Levemir 24 units at night, fixed dose NovoLog 2 units with each meal a nd continue with sliding scale insulin, monitor for hypoglycemia DVT prophylaxis: Coumadin Anticipated discharge date: Pending clinical course Anticipated discharge place: Pending clinical course Objective - Vital Signs Vital signs: Vital Signs Temp 98.3 F 02/23/24 08:35 Pulse 61 02/23/24 12:10 Resp 17 02/23/24 12:10 BP 119/61 02/23/24 12:10 Pulse Ox 99 02/23/24 12:10 FiO2 30 02/23/24 08:35 Intake & Output 02/22/24 02/23/24 02/23/24 18:59 06:59 18:59 Intake Total 280 400 Output Total 200 2400 Balance 80 -2000 Weight 105 kg Intake: Intake, IV Titration 100 Amount ceFAZolin 2 gm In Sodium 100 Chloride 0.9% 50 ml @ 100 mls/hr IVPB Q12H [facility] Rx# :[id number] Oral 180 Hemodialysis 400 Output: Urine 200 Hemodialysis 2400 Other: Voiding Method External Catheter External Catheter External Catheter - Labs CBC & Chem 7: 02/23/24 10:01 02/23/24 10:01 Labs: Abnormal Lab Results - Last 24 Hours (Table) 02/22/24 02/22/24 02/22/24 Range/Units 14:31 14:31 16:25 WBC 17.7 H (3.8-10.6) k/uL RBC 2.92 L (4.30-5.90) m/uL Hgb 9.3 L (13.0-17.5) gm/dL Hct 27.3 L (39.0-53.0) % Neutrophils # (1.3-7.7) k/uL Neutrophils # (Manual) 14.10 H (1.3-7.7) k/uL Lymphocytes # (1.0-4.8) k/uL Lymphocytes # (Manual) 0.89 L (1.0-4.8) k/uL Monocytes # (Manual) 2.12 H (0-1.0) k/uL Metamyelocytes # (Man) 0.18 H (0) k/uL Myelocytes # (Manual) 0.18 H (0) k/uL PT (10.0-12.5) sec INR (<1.2) Sodium 131 L (137-145) mmol/L Chloride 96 L (98-107) mmol/L BUN 57 H (9-20) mg/dL Creatinine 3.26 H (0.66-1.25) mg/dL Glucose 135 H (74-99) mg/dL POC Glucose (mg/dL) 158 H (70-110) mg/dL Calcium 7.6 L (8.4-10.2) mg/dL Phosphorus (2.5-4.5) mg/dL 02/22/24 02/22/24 02/23/24 Range/Units 18:53 20:17 05:46 WBC (3.8-10.6) k/uL RBC (4.30-5.90) m/uL Hgb (13.0-17.5) gm/dL Hct (39.0-53.0) % Neutrophils # (1.3-7.7) k/uL Neutrophils # (Manual) (1.3-7.7) k/uL Lymphocytes # (1.0-4.8) k/uL Lymphocytes # (Manual) (1.0-4.8) k/uL Monocytes # (Manual) (0-1.0) k/uL Metamyelocytes # (Man) (0) k/uL Myelocytes # (Manual) (0) k/uL PT 37.4 H (10.0-12.5) sec INR 3.8 H (<1.2) Sodium (137-145) mmol/L Chloride (98-107) mmol/L BUN (9-20) mg/dL Creatinine (0.66-1.25) mg/dL Glucose (74-99) mg/dL POC Glucose (mg/dL) 276 H 184 H (70-110) mg/dL Calcium (8.4-10.2) mg/dL Phosphorus (2.5-4.5) mg/dL 02/23/24 02/23/24 02/23/24 Range/Units 10:01 10:01 10:01 WBC 15.5 H (3.8-10.6) k/uL RBC 2.55 L (4.30-5.90) m/uL Hgb 8.0 L (13.0-17.5) gm/dL Hct 24.3 L (39.0-53.0) % Neutrophils # 13.1 H (1.3-7.7) k/uL Neutrophils # (Manual) (1.3-7.7) k/uL Lymphocytes # 0.9 L (1.0-4.8) k/uL Lymphocytes # (Manual) (1.0-4.8) k/uL Monocytes # (Manual) (0-1.0) k/uL Metamyelocytes # (Man) (0) k/uL Myelocytes # (Manual) (0) k/uL PT 38.4 H (10.0-12.5) sec INR 3.9 H (<1.2) Sodium 132 L (137-145) mmol/L Chloride 94 L (98-107) mmol/L BUN 77 H (9-20) mg/dL Creatinine 5.38 H (0.66-1.25) mg/dL Glucose 118 H (74-99) mg/dL POC Glucose (mg/dL) (70-110) mg/dL Calcium 7.5 L (8.4-10.2) mg/dL Phosphorus 7.2 H (2.5-4.5) mg/dL 02/23/24 Range/Units 11:41 WBC (3.8-10.6) k/uL RBC (4.30-5.90) m/uL Hgb (13.0-17.5) gm/dL Hct (39.0-53.0) % Neutrophils # (1.3-7.7) k/uL Neutrophils # (Manual) (1.3-7.7) k/uL Lymphocytes # (1.0-4.8) k/uL Lymphocytes # (Manual) (1.0-4.8) k/uL Monocytes # (Manual) (0-1.0) k/uL Metamyelocytes # (Man) (0) k/uL Myelocytes # (Manual) (0) k/uL PT (10.0-12.5) sec INR (<1.2) Sodium (137-145) mmol/L Chloride (98-107) mmol/L BUN (9-20) mg/dL Creatinine (0.66-1.25) mg/dL Glucose (74-99) mg/dL POC Glucose (mg/dL) 132 H (70-110) mg/dL Calcium (8.4-10.2) mg/dL Phosphorus (2.5-4.5) mg/dL Microbiology - Last 24 Hours (Table) 02/19/24 16:10 Blood Culture - Preliminary Blood 02/20/24 08:20 Blood Culture - Preliminary Blood
[2024-02-23 16:16] VITALS: BMI 33.2
--- NOTE | 2024-02-23 16:25 | P.PN ---
Subjective Progress Note Date: 02/23/24 Principal diagnosis: Reason for follow-up with MSSA bacteremia Patient is a 78-year-old male with a past medical his significant for diabetes mellitus hypertension hyperlipidemia atrial fibrillation history of end-stage renal disease on dialysis through left arm AV graft patient has been brought into the hospital for fever weakness and did have bacteremia. On today's evaluation that is 02/23/2024, the patient continues to be afebrile, the patient is on 2 L nasal oxygen and breathing comfortably, the Pt denies having any chest pain or cough, the patient denies having any abdominal pain no vomiting or any diarrhea has been reported by the nursing staff, patient seem to be slightly lethargic for the Family at the bedside. Patient white count is down 15.5, creatinine is 5.38 blood culture repeat as of 02/19/2024 and 02/20/2024 has been negative Objective - Vital Signs Vital signs: Vital Signs Temp 98.3 F 02/23/24 08:35 Pulse 61 02/23/24 12:10 Resp 17 02/23/24 12:10 BP 119/61 02/23/24 12:10 Pulse Ox 99 02/23/24 12:10 FiO2 30 02/23/24 08:35 Intake & Output 02/22/24 02/23/24 02/23/24 18:59 06:59 18:59 Intake Total 280 400 Output Total 200 2400 Balance 80 -2000 Weight 105 kg Intake: Intake, IV Titration 100 Amount ceFAZolin 2 gm In Sodium 100 Chloride 0.9% 50 ml @ 100 mls/hr IVPB Q12H [facility] Rx# :[id number] Oral 180 Hemodialysis 400 Output: Urine 200 Hemodialysis 2400 Other: Voiding Method External Catheter External Catheter External Catheter - Exam GENERAL DESCRIPTION: An elderly male up in the chair in no distress RESPIRATORY SYSTEM: Unlabored breathing , decreased breath sounds at bases HEART: S1 S2 regular rate and rhythm , ABDOMEN: Soft , no tenderness EXTREMITIES: No edema feet - Labs CBC & Chem 7: 02/23/24 10:01 02/23/24 10:01 Labs: Abnormal Lab Results - Last 24 Hours (Table) 02/22/24 02/22/24 02/22/24 Range/Units 14:31 14:31 16:25 WBC 17.7 H (3.8-10.6) k/uL RBC 2.92 L (4.30-5.90) m/uL Hgb 9.3 L (13.0-17.5) gm/dL Hct 27.3 L (39.0-53.0) % Neutrophils # (1.3-7.7) k/uL Neutrophils # (Manual) 14.10 H (1.3-7.7) k/uL Lymphocytes # (1.0-4.8) k/uL Lymphocytes # (Manual) 0.89 L (1.0-4.8) k/uL Monocytes # (Manual) 2.12 H (0-1.0) k/uL Metamyelocytes # (Man) 0.18 H (0) k/uL Myelocytes # (Manual) 0.18 H (0) k/uL PT (10.0-12.5) sec INR (<1.2) Sodium 131 L (137-145) mmol/L Chloride 96 L (98-107) mmol/L BUN 57 H (9-20) mg/dL Creatinine 3.26 H (0.66-1.25) mg/dL Glucose 135 H (74-99) mg/dL POC Glucose (mg/dL) 158 H (70-110) mg/dL Calcium 7.6 L (8.4-10.2) mg/dL Phosphorus (2.5-4.5) mg/dL 02/22/24 02/22/24 02/23/24 Range/Units 18:53 20:17 05:46 WBC (3.8-10.6) k/uL RBC (4.30-5.90) m/uL Hgb (13.0-17.5) gm/dL Hct (39.0-53.0) % Neutrophils # (1.3-7.7) k/uL Neutrophils # (Manual) (1.3-7.7) k/uL Lymphocytes # (1.0-4.8) k/uL Lymphocytes # (Manual) (1.0-4.8) k/uL Monocytes # (Manual) (0-1.0) k/uL Metamyelocytes # (Man) (0) k/uL Myelocytes # (Manual) (0) k/uL PT 37.4 H (10.0-12.5) sec INR 3.8 H (<1.2) Sodium (137-145) mmol/L Chloride (98-107) mmol/L BUN (9-20) mg/dL Creatinine (0.66-1.25) mg/dL Glucose (74-99) mg/dL POC Glucose (mg/dL) 276 H 184 H (70-110) mg/dL Calcium (8.4-10.2) mg/dL Phosphorus (2.5-4.5) mg/dL 02/23/24 02/23/24 02/23/24 Range/Units 10:01 10:01 10:01 WBC 15.5 H (3.8-10.6) k/uL RBC 2.55 L (4.30-5.90) m/uL Hgb 8.0 L (13.0-17.5) gm/dL Hct 24.3 L (39.0-53.0) % Neutrophils # 13.1 H (1.3-7.7) k/uL Neutrophils # (Manual) (1.3-7.7) k/uL Lymphocytes # 0.9 L (1.0-4.8) k/uL Lymphocytes # (Manual) (1.0-4.8) k/uL Monocytes # (Manual) (0-1.0) k/uL Metamyelocytes # (Man) (0) k/uL Myelocytes # (Manual) (0) k/uL PT 38.4 H (10.0-12.5) sec INR 3.9 H (<1.2) Sodium 132 L (137-145) mmol/L Chloride 94 L (98-107) mmol/L BUN 77 H (9-20) mg/dL Creatinine 5.38 H (0.66-1.25) mg/dL Glucose 118 H (74-99) mg/dL POC Glucose (mg/dL) (70-110) mg/dL Calcium 7.5 L (8.4-10.2) mg/dL Phosphorus 7.2 H (2.5-4.5) mg/dL 02/23/24 Range/Units 11:41 WBC (3.8-10.6) k/uL RBC (4.30-5.90) m/uL Hgb (13.0-17.5) gm/dL Hct (39.0-53.0) % Neutrophils # (1.3-7.7) k/uL Neutrophils # (Manual) (1.3-7.7) k/uL Lymphocytes # (1.0-4.8) k/uL Lymphocytes # (Manual) (1.0-4.8) k/uL Monocytes # (Manual) (0-1.0) k/uL Metamyelocytes # (Man) (0) k/uL Myelocytes # (Manual) (0) k/uL PT (10.0-12.5) sec INR (<1.2) Sodium (137-145) mmol/L Chloride (98-107) mmol/L BUN (9-20) mg/dL Creatinine (0.66-1.25) mg/dL Glucose (74-99) mg/dL POC Glucose (mg/dL) 132 H (70-110) mg/dL Calcium (8.4-10.2) mg/dL Phosphorus (2.5-4.5) mg/dL Microbiology - Last 24 Hours (Table) 02/19/24 16:10 Blood Culture - Preliminary Blood 02/20/24 08:20 Blood Culture - Preliminary Blood Assessment and Plan (1) Leukocytosis Current Visit: Yes Status: Acute Code(s): D72.829 - ELEVATED WHITE BLOOD CELL COUNT, UNSPECIFIED SNOMED Code(s): 234852333 (2) MSSA bacteremia Current Visit: Yes Status: Acute Code(s): R78.81 - BACTEREMIA; B95.61 - METHICILLIN SUSCEP STAPH INFCT CAUSING DIS CLASSD [id number] SNOMED Code(s): 133047685 Plan: 1patient with MSSA bacteremia in this patient who do have a history of renal failure with on hemodialysis with a left arm fistula site with presentation to the hospital with weakness fall and urinary frequency however UA is negative abdominal soft no significant respiratory symptoms or hypoxemia question of possible related to the fistula site which was nonfunctioning and did have angiogram and angioplasty done this admission. 2blood cultures repeated 02/17/2024 came back positive blood culture has been repeated 02/19/2024 as well as 02/20/2024 are so far negative keeping in mind his TAVR procedure, cardiology has been consulted for TREY which is currently pending completion we will continue patient on cefazolin and monitor clinical course closely Dictation was produced using dragon dictation software. please excuse any grammatical, word or spelling errors. Time with Patient: Less than 30
[2024-02-23 16:45] LABS: Glucose,Whole Blood 205 mg/dL (70-110)
[2024-02-23] MEDS: WARFARIN 0.5 MG TAB PO ONE (17:16)
--- NOTE | 2024-02-23 17:22 | CT ---
EXAMINATION TYPE: CT brain wo con CT DLP: 1197.4 mGycm, Automated exposure control for dose reduction was used. DATE OF EXAM: 02/23/2024 4:57 PM COMPARISON: None. CLINICAL INDICATION:Male, 78 years old with history of ams, TECHNIQUE: Brain: Axial CT images of the brain were obtained with coronal and sagittal reformats created and rev iewed. Contrast used: None. Oral contrast used: None. FINDINGS: Brain: Extra-axial spaces: No abnormal extra-axial fluid collections. Ventricular system: Dilatation in proportion to cerebral atrophy. Cerebral parenchyma: Prominent perivascular space in the bilateral basal ganglia/edwards radiata versu s prior injuries. No acute intraparenchymal hemorrhage or mass effect. The vines-white junction is we ll differentiated. Scattered hypoattenuating areas are seen within the white matter. Cerebellum: Unremarkable. Mass effect: No evidence of midline shift. Intracranial vasculature: Atherosclerotic calcifications of the intracranial vessels. Soft tissues: Normal. Calvarium/osseous structures: No depressed skull fracture. Paranasal sinuses and mastoid air cells: Mild scattered paranasal sinus disease. Visualized orbits: Orbital contents are intact. IMPRESSION: 1. No acute intracranial process. 2. Nonspecific white matter changes, likely secondary to chronic small vessel ischemic disease.
[2024-02-23 20:09] LABS: Glucose,Whole Blood 163 mg/dL (70-110)
--- NOTE | 2024-02-23 22:14 | P.PN ---
Subjective Progress Note Date: 02/23/24 On today's evaluation of 02/22/2024, seen the patient for a follow-up. The patient is currently undergoing hemodialysis and is resting comfortably in bed while awaiting a BiPAP at a pressure of 10/5 with an FiO2 of 30%. No significant respiratory distress at this point in time. Noted the patient had staphylococcal bacteremia/MSSA and the patient is currently on IV cefazolin. Pulse ox is in the order of 94% while wearing the BiPAP. No labs are available from today. Yesterday's labs were noted. The white cell count at 13.7 with a hemoglobin of 8.1 and a platelet count of 140. The most recent chest x-ray from 02/18/2024 showed cardiomegaly and mild pulm vascular congestion. No evidence of any consolidation or airspace disease. Echocardiogram on 02/16/2024 showed left- ventricular ejection fraction of 40 to 45%, global hypokinesis, moderately decreased LV function, the aortic valve had some mild to moderate para valvular leak otherwise, no other significant valvular abnormalities noted. The patient is otherwise calm and comfortable. His comorbid conditions include end-stage renal disease on hemodialysis 3 times a week and the patient has a malfunctioning AV graft and the patient is status post angioplasty and thrombolysis of the left subclavian vein. Nephrology on the case. Vascular surgery is also on the case. Hemoglobin is stable for now and there is no evidence of any GI bleeding. The patient has been anticoagulated regarding chronic atrial fibrillation. The patient has hyperlipidemia, diabetes mellitus type 2 as comorbid conditions. The patient is post TAVR procedure with some mild to moderate aortic valvular leak. 02/23/2024, the patient is being seen for a follow-up. This patient is 78 and the patient has MSSA septicemia currently on IV cefazolin. The most recent follow-up blood cultures from [facility] on 02/20/2024 were negative. The patient remains hemodynamically stable. On today's blood work, there is a white cell count of 15.5 with a hemoglobin of 8 and a platelet count of 211. The sodium level is 132, BUN 77 creatinine 5.38 and a potassium level is at 3.9. INR is currently at 3.9. Patient remains on IV cefazolin. The patient is on Levemir insulin 24 units at bedtime along with NovoLog 2 units with meals + scale coverage. Remains on Demadex 40 mg p.o. daily. Remains on Flomax. The CAT scan of the brain was done today and showed no acute abnormalities and there was some nonspecific white matter changes likely secondary to chronic small vessel ischemic disease. At the same time, a chest x-ray was repeated today and shows essentially stable findings with some calcification along the pleural surface and the right and mild pulm vessel congestion without any significant interval changes compared to the earlier chest x-ray. Respiratory status is stable. The patient is currently off the BiPAP initially at 2 L and subsequently out of her oxygen with a pulse ox of 96%. The patient is also being seen by infectious disease. TREY has been ordered. The patient is being seen by nephrology. Regarding his end-stage renal disease and the patient is undergoing hemodialysis MWF. No problems with dialysis and his last dialysis session was done yesterday. No reported shortness of breath at this point in time. His MSSA bacteremia is still being investigated and the patient is being considered for a TREY. Objective - Vital Signs Vital signs: Vital Signs Temp 98.3 F 02/23/24 08:35 Pulse 63 02/23/24 08:35 Resp 18 02/23/24 08:35 BP 132/73 02/23/24 08:35 Pulse Ox 99 02/23/24 08:35 FiO2 30 02/23/24 08:35 Intake & Output 02/22/24 02/23/24 02/23/24 18:59 06:59 18:59 Intake Total 280 400 Output Total 200 2400 Balance 80 -2000 Weight 105 kg Intake: Intake, IV Titration 100 Amount ceFAZolin 2 gm In Sodium 100 Chloride 0.9% 50 ml @ 100 mls/hr IVPB Q12H [facility] Rx# :[id number] Oral 180 Hemodialysis 400 Output: Urine 200 Hemodialysis 2400 Other: Voiding Method External Catheter External Catheter External Catheter - Exam No acute distress, oriented 3. The patient is currently on BiPAP which is running at a pressure of 10/5 with an FiO2 of 30%, no signs of any significant respiratory distress head exam was generally normal. There was no scleral icterus or corneal arcus. M ucous membranes were moist. HEENT examination is grossly unremarkable. Mucous membranes are moist. No oral lesions. Neck supple. Full range of motion. No adenopathy thyromegaly or neck vein dist ention. Cardiovascular examination reveals regular rhythm rate. S1-S2 normal. No S3 or S4. No discernible murmur noted. Heart sounds distant. Lungs reveal mild bibasilar crackles. No wheezes or rhonchi. Breath sounds are equal bilaterally. Abdomen soft bowel sounds are heard. No masses or tenderness. Extremities are intact. No cyanosis clubbing or edema. Skin is without rash or lesion. Neurologic examination is brief but nonfocal. - Labs CBC & Chem 7: 02/23/24 10:01 02/23/24 10:01 Labs: Abnormal Lab Results - Last 24 Hours (Table) 02/22/24 02/22/24 02/22/24 Range/Units 14:31 14:31 16:25 WBC 17.7 H (3.8-10.6) k/uL RBC 2.92 L (4.30-5.90) m/uL Hgb 9.3 L (13.0-17.5) gm/dL Hct 27.3 L (39.0-53.0) % Neutrophils # (Manual) 14.10 H (1.3-7.7) k/uL Lymphocytes # (Manual) 0.89 L (1.0-4.8) k/uL Monocytes # (Manual) 2.12 H (0-1.0) k/uL Metamyelocytes # (Man) 0.18 H (0) k/uL Myelocytes # (Manual) 0.18 H (0) k/uL PT (10.0-12.5) sec INR (<1.2) Sodium 131 L (137-145) mmol/L Chloride 96 L (98-107) mmol/L BUN 57 H (9-20) mg/dL Creatinine 3.26 H (0.66-1.25) mg/dL Glucose 135 H (74-99) mg/dL POC Glucose (mg/dL) 158 H (70-110) mg/dL Calcium 7.6 L (8.4-10.2) mg/dL 02/22/24 02/22/24 02/23/24 Range/Units 18:53 20:17 05:46 WBC (3.8-10.6) k/uL RBC (4.30-5.90) m/uL Hgb (13.0-17.5) gm/dL Hct (39.0-53.0) % Neutrophils # (Manual) (1.3-7.7) k/uL Lymphocytes # (Manual) (1.0-4.8) k/uL Monocytes # (Manual) (0-1.0) k/uL Metamyelocytes # (Man) (0) k/uL Myelocytes # (Manual) (0) k/uL PT 37.4 H (10.0-12.5) sec INR 3.8 H (<1.2) Sodium (137-145) mmol/L Chloride (98-107) mmol/L BUN (9-20) mg/dL Creatinine (0.66-1.25) mg/dL Glucose (74-99) mg/dL POC Glucose (mg/dL) 276 H 184 H (70-110) mg/dL Calcium (8.4-10.2) mg/dL 02/23/24 Range/Units 10:01 WBC (3.8-10.6) k/uL RBC (4.30-5.90) m/uL Hgb (13.0-17.5) gm/dL Hct (39.0-53.0) % Neutrophils # (Manual) (1.3-7.7) k/uL Lymphocytes # (Manual) (1.0-4.8) k/uL Monocytes # (Manual) (0-1.0) k/uL Metamyelocytes # (Man) (0) k/uL Myelocytes # (Manual) (0) k/uL PT 38.4 H (10.0-12.5) sec INR 3.9 H (<1.2) Sodium (137-145) mmol/L Chloride (98-107) mmol/L BUN (9-20) mg/dL Creatinine (0.66-1.25) mg/dL Glucose (74-99) mg/dL POC Glucose (mg/dL) (70-110) mg/dL Calcium (8.4-10.2) mg/dL Microbiology - Last 24 Hours (Table) 02/19/24 16:10 Blood Culture - Preliminary Blood 02/20/24 08:20 Blood Culture - Preliminary Blood Assessment and Plan Plan: Acute hypoxemic respiratory failure, likely secondary to a combination of fluid overload and acute systolic CHF exacerbation. Clinically improved. The patient is currently off BiPAP, initially transitioned to 2 L of oxygen by nasal cannula and the patient is currently on room air oxygen. Chest x-ray shows increased pulm vascular markings and some chronic pleural calcification, without any acute cardiopulmonary pulmonary process. End-stage renal disease, receiving hemodialysis on a Thursday, Thursday, Thursday schedule. The patient apparently had a nonfunctioning AV fistula, and, the patient was to undergo a left upper extremity fistulogram, with ultrasound- guided access, PTBA, and thrombolysis. Subsequent to the graft working. The last hemodialysis session was done yesterday. Atrial fibrillation with rapid ventricular response, rate is under adequate control for now Staph aureus sepsis and the patient presented with bacteremia and sepsis, secondary to methicillin sensitive Staphylococcus aureus. The patient remains on IV cefazolin. No indication of any endocarditis based on the transthoracic echocardiogram. Patient is being considered for a TREY. History of TAVR with aortic valve replacement with mild to moderate aortic valvular leak Hypotension and shock, recovered and the patient is hemodynamically stable Acute febrile illness, currently afebrile Altered mental status, possibly explained by acute metabolic encephalopathy and sepsis, improving Acute leukocytosis, secondary to above Thrombocytopenia, chronic Anemia of chronic disease, secondary to end-stage renal disease. Elevated troponins, suspect supply/demand mismatch. History of TAVR. History of hyperlipidemia. Obesity, with a BMI of 33.5 kg/m. Obstructive sleep apnea, with home BiPAP device. Former tobacco smoker. Plan: Patient is currently on room air oxygen. May need O2 should there be any oxygen desaturation. Repeat chest x-ray in the morning was noted and the findings are essentially stable. continue IV cefazolin TREY may be recommended especially with his history of TAVR. Noted to follow-up blood cultures have been negative thus far. Hemodynamically stable Hemodialysis per nephrology and the patient had a hemodialysis session yesterday. Repeat labs were noted Awaiting follow-up blood cultures, negative thus far Overall condition is stable and will continue to follow.
[2024-02-24 05:41] LABS: Glucose,Whole Blood 137 mg/dL (70-110)
[2024-02-24 11:03] LABS: INR 3.3 (<1.2)
--- NOTE | 2024-02-24 11:07 | P.PN ---
Subjective Patient is seen in follow-up for end-stage renal disease. He is maintained on hemodialysis on Thursday schedule. No chest pain or shortness of breath. Scheduled for dialysis today. Hemodynamically stable. Vital signs are stable. General: No acute distress. HEENT: Head exam is unremarkable. On nasal cannula. LUNGS: No audible rhonchi or wheezes. HEART: Rate and Rhythm are regular. ABDOMEN: Nontender. EXTREMITITES: No edema. Objective - Vital Signs Vital signs: Vital Signs Temp 98.6 F 02/24/24 08:50 Pulse 65 02/24/24 08:50 Resp 17 02/24/24 08:50 BP 125/56 02/24/24 08:50 Pulse Ox 97 02/24/24 08:50 FiO2 30 02/24/24 05:22 Intake & Output 02/23/24 02/24/24 02/24/24 18:59 06:59 18:59 Intake Total 240 Output Total 500 Balance -260 Weight 105 kg Intake: Oral 240 Output: Urine 500 Other: Voiding Method External Catheter External Catheter External Catheter - Labs CBC & Chem 7: 02/23/24 10:01 02/23/24 10:01 Labs: Abnormal Lab Results - Last 24 Hours (Table) 02/23/24 02/23/24 02/23/24 Range/Units 10:01 10:01 11:41 WBC 15.5 H (3.8-10.6) k/uL RBC 2.55 L (4.30-5.90) m/uL Hgb 8.0 L (13.0-17.5) gm/dL Hct 24.3 L (39.0-53.0) % Neutrophils # 13.1 H (1.3-7.7) k/uL Lymphocytes # 0.9 L (1.0-4.8) k/uL PT (10.0-12.5) sec INR (<1.2) Sodium 132 L (137-145) mmol/L Chloride 94 L (98-107) mmol/L BUN 77 H (9-20) mg/dL Creatinine 5.38 H (0.66-1.25) mg/dL Glucose 118 H (74-99) mg/dL POC Glucose (mg/dL) 132 H (70-110) mg/dL Calcium 7.5 L (8.4-10.2) mg/dL Phosphorus 7.2 H (2.5-4.5) mg/dL 02/23/24 02/23/24 02/24/24 Range/Units 16:43 20:06 05:40 WBC (3.8-10.6) k/uL RBC (4.30-5.90) m/uL Hgb (13.0-17.5) gm/dL Hct (39.0-53.0) % Neutrophils # (1.3-7.7) k/uL Lymphocytes # (1.0-4.8) k/uL PT (10.0-12.5) sec INR (<1.2) Sodium (137-145) mmol/L Chloride (98-107) mmol/L BUN (9-20) mg/dL Creatinine (0.66-1.25) mg/dL Glucose (74-99) mg/dL POC Glucose (mg/dL) 205 H 163 H 137 H (70-110) mg/dL Calcium (8.4-10.2) mg/dL Phosphorus (2.5-4.5) mg/dL 02/24/24 Range/Units 09:58 WBC (3.8-10.6) k/uL RBC (4.30-5.90) m/uL Hgb (13.0-17.5) gm/dL Hct (39.0-53.0) % Neutrophils # (1.3-7.7) k/uL Lymphocytes # (1.0-4.8) k/uL PT 32.0 H (10.0-12.5) sec INR 3.3 H (<1.2) Sodium (137-145) mmol/L Chloride (98-107) mmol/L BUN (9-20) mg/dL Creatinine (0.66-1.25) mg/dL Glucose (74-99) mg/dL POC Glucose (mg/dL) (70-110) mg/dL Calcium (8.4-10.2) mg/dL Phosphorus (2.5-4.5) mg/dL Microbiology - Last 24 Hours (Table) 02/20/24 08:20 Blood Culture - Preliminary Blood Assessment and Plan Plan: Assessment: 1. End-stage renal disease maintained on hemodialysis on Thursday schedule. 2. A-fib with RVR status post Cardizem drip. On Lopressor. 3. Diabetes mellitus. 4. MSSA bacteremia on antibiotics. ID following. TREY being considered. 5. Hyperphosphatemia secondary to chronic kidney disease. Phosphorus level 7.2 dated February 23, 2024. On PhosLo. Plan: Hemodialysis today. Maintain torsemide.
[2024-02-24 11:14] LABS: Basophils # (A) 0.1 k/uL (0-0.2); Basophils % (A) 0 %; Eosinophils # (A) 0.1 k/uL (0-0.7); Eosinophils % (A) 1 %; HCT 24.1 % (39.0-53.0); Lymphocytes # (A) 0.9 k/uL (1.0-4.8); Lymphocytes % (A) 5 %; MCH 31.6 pg (25.0-35.0); MCHC 33.2 g/dL (31.0-37.0); MCV 95.1 fL (80.0-100.0); Mean Platelet Volume 8.6; Monocytes # (A) 0.7 k/uL (0-1.0); Monocytes % (A) 4 %; Neutrophils # (A) 15.8 k/uL (1.3-7.7); Neutrophils % (A) 89 %; Platelet Count 236 k/uL (150-450); RBC 2.53 m/uL (4.30-5.90); RDW 15.5 % (11.5-15.5); WBC 17.8 k/uL (3.8-10.6)
[2024-02-24 11:31] LABS: Glucose,Whole Blood 139 mg/dL (70-110)
[2024-02-24 11:38] LABS: African American GFR (CKD) 8 (>60 ml/min/1.73 sqM); Anion Gap 13 mmol/L; Blood Urea Nitrogen 100 mg/dL (9-20); Calcium 7.5 mg/dL (8.4-10.2); Carbon Dioxide 23 mmol/L (22-30); Chloride 95 mmol/L (98-107); Glucose 104 mg/dL (74-99); Non-African American GFR(CKD) 7 (>60 ml/min/1.73 sqM); Potassium 4.2 mmol/L (3.5-5.1); Sodium 131 mmol/L (137-145)
[2024-02-24] MEDS: TORSEMIDE 20 MG TAB PO SCH (11:53)
[2024-02-24] MEDS: DARBEPOETIN ALFA 40 MCG/0.4 ML SYRINGE SQ SCH (12:50)
--- NOTE | 2024-02-24 14:11 | P.PN ---
Subjective Progress Note Date: 02/24/24 Hospital Course: Patient is a 78-year-old male with with known diabetes, atrial fibrillation an ticoagulated with Coumadin, prior aortic valve replacement, dyslipidemia, end- stage renal disease on hemodialysis Thursday/Thursday/Thursday, and BPH who presented to the emergency department due to confusion and weakness. He had previously been to [facility] where he was noted to have a fever and elevated heart rate he was then discharged from the emergency department. When he went to go to dialysis they terminated after 1 hour due to a fever. On arrival to the emergency department he was noted to be febrile to 104.1 with a heart rate of 140. Initial laboratory analysis was remarkable for white blood cell count 19.4, platelets 131, lactic acid 2.6, troponin 0.12, and renal function consistent with his known dialysis. Influenza A/B/RSV/COVID-19 testing was negative. Initial chest x-ray demonstrated pulmonary vascular congestion. Patient was admitted for sepsis of unknown etiology and A-fib with RVR. He was to started on vancomycin and cefepime as well as a Cardizem drip. Critical care and cardiology were consulted. Echocardiogram was performed which demonstrated ejection fraction of 40 to 45% with mild to moderate perivalvular leak of his aortic valve replacement. Vascular surgery was consulted as his dialysis access is not working. And on 02/15 he underwent left upper extremity fistulogram with transluminal ballooning and thrombolysis at proximal aspect of graft. He then underwent hemodialysis and became slightly hypotensive requiring initiation of norepinephrine. He was subsequently transferred to the ICU. He had melanic stools. His hemoglobin stabilized and he had a recent outpatient colonoscopy without active bleeding. Blood cultures came back positive for MSSA. Currently on cefazolin. Patient does have a history of bioprosthetic aortic valve, TREY is pending. There was concern for possible aspiration. Speech therapy was consulted. 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 This can be advanced once mentation improves. Due to worsening mentation, CT head was ordered which was negative for any acute process. Subjective: Patient seen and examined at bedside. No acute events overnight. No new complaints Pertinent positives and negatives as discussed above, a complete review of systems was performed and all other systems are negative. Vitals Signs Reviewed. General: Nontoxic, no distress, appears at stated age Derm: Warm, dry Head: Atraumatic, normocephalic, symmetric Eyes: EOMI, no lid lag, anicteric sclera Mouth: No lip lesion, mucus membranes moist Cardiovascular: S1S2 reg, no murmur Lungs: CTA bilateral, no rhonchi, no rales, no accessory muscle use Abdominal: Soft, nontender to palpation, no guarding, no appreciable organomegaly Ext: No gross muscle atrophy, trace peripheral edema, no contractures Neuro: CN II-XI grossly intact, no focal neuro deficits Psych: Alert, oriented x 2, appropriate affect Data Reviewed Today: Pertinent Labs: WBC 17.8, hemoglobin 8, INR 3.3, creatinine 7.15, sodium 131, blood sugars range between 1 37-1 63 Imaging: CT head did not show any acute process. Assessment and Plan: Acute metabolic encephalopathy -CT head negative for any acute process. -Possible hypoactive delirium in the setting of acute illness -TSH normal, B12 level ordered -Urine precautions -Unsure if delirium is related to his IV antibiotics, continue to monitor MSSA bacteremia with sepsis -Unclear source, possibly dialysis access -Continue IV cefazolin 2 g every 12 hours -Patient's last cultures done on 02/17/2024 are positive -Blood cultures from 02/19/2024 are negative to date -Infectious disease following, continue with cefazolin, no need for PICC line as it will go with dialysis. -Cardiology was consulted for TREY, patient does have a history of bioprosthetic aortic valve -discussed mgmt with cardiology, TREY tomorrow vs Thursday End-stage renal disease on hemodialysis Thursday/Thursday/Thursday Malfunction AV graft- s/p angioplasty/thrombolysis of left subclavian vein -Nephrology note reviewed, continue PhosLo with meals, and torsemide 40 mg daily - Vascular now signed off Melena, possible lower GI bleed Normocytic anemia, probable acute blood loss with chronic renal disease and dialysis -Hemoglobin continues to downtrend, no further bloody bowel movements - GI was previously consulted, continue with Protonix for GI prophylaxis, diet as tolerated, recent colonoscopy with no active bleeding but positive occult s tool. No plans for repeat endoscopic evaluation. - no indication for transfusion -Patient is on Coumadin pharmacy to dose -Hemoglobin currently stable Acute exacerbation of systolic congestive heart failure with ejection fraction 40 to 45% Atrial fibrillation with rapid ventricular response anticoagulated with coumadin Supratherapeutic INR Type II non-STEMI Dyslipidemia History of TAVR -Cardiology following, patient restarted on Coumadin, pharmacy to dose -Lipitor 10 mg at night -Metoprolol 25 mg oral 3 times daily Thrombocytopenia - continue to follow CBC - no indication for transfusion -Improving Diabetes mellitus type 2 with hyperglycemia -At home patient takes Lantus 45 units at night and Alogliptin -A1c 8.8 -Continue Levemir 24 units at night, fixed dose NovoLog 2 units with each meal and continue with sliding scale insulin, monitor for hypoglycemia DVT prophylaxis: Coumadin Anticipated discharge date: Pending clinical course Anticipated discharge place: Pending clinical course Objective - Vital Signs Vital signs: Vital Signs Temp 97.4 F L 02/24/24 11:50 Pulse 75 02/24/24 11:50 Resp 16 02/24/24 11:50 BP 125/66 02/24/24 11:50 Pulse Ox 95 02/24/24 11:50 FiO2 30 02/24/24 05:22 Intake & Output 02/23/24 02/24/24 02/24/24 18:59 06:59 18:59 Intake Total 240 110 Output Total 500 Balance -260 110 Weight 105 kg Intake: Oral 240 110 Output: Urine 500 Other: Voiding Method External Catheter External Catheter External Catheter - Labs CBC & Chem 7: 02/24/24 09:58 02/24/24 09:58 Labs: Abnormal Lab Results - Last 24 Hours (Table) 02/23/24 02/23/24 02/24/24 Range/Units 16:43 20:06 05:40 WBC (3.8-10.6) k/uL RBC (4.30-5.90) m/uL Hgb (13.0-17.5) gm/dL Hct (39.0-53.0) % Neutrophils # (1.3-7.7) k/uL Lymphocytes # (1.0-4.8) k/uL PT (10.0-12.5) sec INR (<1.2) Sodium (137-145) mmol/L Chloride (98-107) mmol/L BUN (9-20) mg/dL Creatinine (0.66-1.25) mg/dL Glucose (74-99) mg/dL POC Glucose (mg/dL) 205 H 163 H 137 H (70-110) mg/dL Calcium (8.4-10.2) mg/dL 02/24/24 02/24/24 02/24/24 Range/Units 09:58 09:58 09:58 WBC 17.8 H (3.8-10.6) k/uL RBC 2.53 L (4.30-5.90) m/uL Hgb 8.0 L (13.0-17.5) gm/dL Hct 24.1 L (39.0-53.0) % Neutrophils # 15.8 H (1.3-7.7) k/uL Lymphocytes # 0.9 L (1.0-4.8) k/uL PT 32.0 H (10.0-12.5) sec INR 3.3 H (<1.2) Sodium 131 L (137-145) mmol/L Chloride 95 L (98-107) mmol/L BUN 100 H (9-20) mg/dL Creatinine 7.15 H* (0.66-1.25) mg/dL Glucose 104 H (74-99) mg/dL POC Glucose (mg/dL) (70-110) mg/dL Calcium 7.5 L (8.4-10.2) mg/dL 02/24/24 Range/Units 11:27 WBC (3.8-10.6) k/uL RBC (4.30-5.90) m/uL Hgb (13.0-17.5) gm/dL Hct (39.0-53.0) % Neutrophils # (1.3-7.7) k/uL Lymphocytes # (1.0-4.8) k/uL PT (10.0-12.5) sec INR (<1.2) Sodium (137-145) mmol/L Chloride (98-107) mmol/L BUN (9-20) mg/dL Creatinine (0.66-1.25) mg/dL Glucose (74-99) mg/dL POC Glucose (mg/dL) 139 H (70-110) mg/dL Calcium (8.4-10.2) mg/dL Microbiology - Last 24 Hours (Table) 02/20/24 08:20 Blood Culture - Preliminary Blood
--- NOTE | 2024-02-24 15:11 | P.PN ---
Subjective Progress Note Date: 02/24/24 On today's evaluation of 02/22/2024, seen the patient for a follow-up. The patient is currently undergoing hemodialysis and is resting comfortably in bed while awaiting a BiPAP at a pressure of 10/5 with an FiO2 of 30%. No significant respiratory distress at this point in time. Noted the patient had staphylococcal bacteremia/MSSA and the patient is currently on IV cefazolin. Pulse ox is in the order of 94% while wearing the BiPAP. No labs are available from today. Yesterday's labs were noted. The white cell count at 13.7 with a hemoglobin of 8.1 and a platelet count of 140. The most recent chest x-ray from 02/18/2024 showed cardiomegaly and mild pulm vascular congestion. No evidence of any consolidation or airspace disease. Echocardiogram on 02/16/2024 showed left- ventricular ejection fraction of 40 to 45%, global hypokinesis, moderately decreased LV function, the aortic valve had some mild to moderate para valvular leak otherwise, no other significant valvular abnormalities noted. The patient is otherwise calm and comfortable. His comorbid conditions include end-stage renal disease on hemodialysis 3 times a week and the patient has a malfunctioning AV graft and the patient is status post angioplasty and thrombolysis of the left subclavian vein. Nephrology on the case. Vascular surgery is also on the case. Hemoglobin is stable for now and there is no evidence of any GI bleeding. The patient has been anticoagulated regarding chronic atrial fibrillation. The patient has hyperlipidemia, diabetes mellitus type 2 as comorbid conditions. The patient is post TAVR procedure with some mild to moderate aortic valvular leak. 02/23/2024, the patient is being seen for a follow-up. This patient is 78 and the patient has MSSA septicemia currently on IV cefazolin. The most recent follow-up blood cultures from [facility] on 02/20/2024 were negative. The patient remains hemodynamically stable. On today's blood work, there is a white cell count of 15.5 with a hemoglobin of 8 and a platelet count of 211. The sodium level is 132, BUN 77 creatinine 5.38 and a potassium level is at 3.9. INR is currently at 3.9. Patient remains on IV cefazolin. The patient is on Levemir insulin 24 units at bedtime along with NovoLog 2 units with meals + scale coverage. Remains on Demadex 40 mg p.o. daily. Remains on Flomax. The CAT scan of the brain was done today and showed no acute abnormalities and there was some nonspecific white matter changes likely secondary to chronic small vessel ischemic disease. At the same time, a chest x-ray was repeated today and shows essentially stable findings with some calcification along the pleural surface and the right and mild pulm vessel congestion without any significant interval changes compared to the earlier chest x-ray. Respiratory status is stable. The patient is currently off the BiPAP initially at 2 L and subsequently out of her oxygen with a pulse ox of 96%. The patient is also being seen by infectious disease. TREY has been ordered. The patient is being seen by nephrology. Regarding his end-stage renal disease and the patient is undergoing hemodialysis MWF. No problems with dialysis and his last dialysis session was done yesterday. No reported shortness of breath at this point in time. His MSSA bacteremia is still being investigated and the patient is being considered for a TREY. On today's evaluation of 02/24/2024, the patient is essentially unchanged. Calm and comfortable, resting comfortably in bed. No significant respiratory distress. He remains on oxygen on room air with a pulse ox of 95%. No cough. No sputum production. No chest tightness. No wheezing. Obese, 17.8 with a hemoglobin of 8 and a platelet count of 236. BUN is 100 and the creatinine is at 7.1 and a sodium levels at 131. The patient has end-stage renal disease and the patient undergoes hemodialysis 3 times a week and he is scheduled to undergo hemodialysis today. Afebrile. Remains on IV cefazolin. Repeated blood culture s from 03/03/2024 on 02/20/2024 were negative. Objective - Vital Signs Vital signs: Vital Signs Temp 97.1 F L 02/24/24 04:00 Pulse 75 02/24/24 04:00 Resp 18 02/24/24 04:00 BP 133/55 02/24/24 04:00 Pulse Ox 95 02/24/24 04:00 FiO2 30 02/24/24 05:22 Intake & Output 02/23/24 02/24/24 02/24/24 18:59 06:59 18:59 Intake Total 240 Output Total 500 Balance -260 Weight 105 kg Intake: Oral 240 Output: Urine 500 Other: Voiding Method External Catheter External Catheter - Exam No acute distress, oriented 3. The patient is currently on BiPAP which is running at a pressure of 10/5 with an FiO2 of 30%, no signs of any significant respiratory distress head exam was generally normal. There was no scleral icterus or corneal arcus. Mucous membranes were moist. HEENT examination is grossly unremarkable. Mucous membranes are moist. No oral lesions. Neck supple. Full range of motion. No adenopathy thyromegaly or neck vein distention. Cardiovascular examination reveals regular rhythm rate. S1-S2 normal. No S3 or S4. No discernible murmur noted. Heart sounds distant. Lungs reveal mild bibasilar crackles. No wheezes or rhonchi. Breath sounds are equal bilaterally. Abdomen soft bowel sounds are heard. No masses or tenderness. Extremities are intact. No cyanosis clubbing or edema. Skin is without rash or lesion. Neurologic examination is brief but nonfocal. - Labs CBC & Chem 7: 02/24/24 09:58 02/24/24 09:58 Labs: Abnormal Lab Results - Last 24 Hours (Table) 02/23/24 02/23/24 02/23/24 Range/Units 10:01 10:01 10:01 WBC 15.5 H (3.8-10.6) k/uL RBC 2.55 L (4.30-5.90) m/uL Hgb 8.0 L (13.0-17.5) gm/dL Hct 24.3 L (39.0-53.0) % Neutrophils # 13.1 H (1.3-7.7) k/uL Lymphocytes # 0.9 L (1.0-4.8) k/uL PT 38.4 H (10.0-12.5) sec INR 3.9 H (<1.2) Sodium 132 L (137-145) mmol/L Chloride 94 L (98-107) mmol/L BUN 77 H (9-20) mg/dL Creatinine 5.38 H (0.66-1.25) mg/dL Glucose 118 H (74-99) mg/dL POC Glucose (mg/dL) (70-110) mg/dL Calcium 7.5 L (8.4-10.2) mg/dL Phosphorus 7.2 H (2.5-4.5) mg/dL 02/23/24 02/23/24 02/23/24 Range/Units 11:41 16:43 20:06 WBC (3.8-10.6) k/uL RBC (4.30-5.90) m/uL Hgb (13.0-17.5) gm/dL Hct (39.0-53.0) % Neutrophils # (1.3-7.7) k/uL Lymphocytes # (1.0-4.8) k/uL PT (10.0-12.5) sec INR (<1.2) Sodium (137-145) mmol/L Chloride (98-107) mmol/L BUN (9-20) mg/dL Creatinine (0.66-1.25) mg/dL Glucose (74-99) mg/dL POC Glucose (mg/dL) 132 H 205 H 163 H (70-110) mg/dL Calcium (8.4-10.2) mg/dL Phosphorus (2.5-4.5) mg/dL 02/24/24 Range/Units 05:40 WBC (3.8-10.6) k/uL RBC (4.30-5.90) m/uL Hgb (13.0-17.5) gm/dL Hct (39.0-53.0) % Neutrophils # (1.3-7.7) k/uL Lymphocytes # (1.0-4.8) k/uL PT (10.0-12.5) sec INR (<1.2) Sodium (137-145) mmol/L Chloride (98-107) mmol/L BUN (9-20) mg/dL Creatinine (0.66-1.25) mg/dL Glucose (74-99) mg/dL POC Glucose (mg/dL) 137 H (70-110) mg/dL Calcium (8.4-10.2) mg/dL Phosphorus (2.5-4.5) mg/dL Microbiology - Last 24 Hours (Table) 02/20/24 08:20 Blood Culture - Preliminary Blood Assessment and Plan Plan: Acute hypoxemic respiratory failure, likely secondary to a combination of fluid overload and acute systolic CHF exacerbation. Clinically improved. The patient is currently off BiPAP, and the patient is currently on room air oxygen. No signs of any respite distress. End-stage renal disease, receiving hemodialysis on a Thursday, Thursday, Thursday schedule. The patient apparently had a nonfunctioning AV fistula, and, the patient was to undergo a left upper extremity fistulogram, with ultrasound- guided access, PTBA, and thrombolysis. Subsequent to the graft working. The hemodialysis scheduled for today. Atrial fibrillation with rapid ventricular response, rate is under adequate control for now Staph aureus sepsis and the patient presented with bacteremia and sepsis, secondary to methicillin sensitive Staphylococcus aureus. The patient remains on IV cefazolin. No indication of any endocarditis based on the transthoracic echocardiogram. Patient is being considered for a TREY. History of TAVR with aortic valve replacement with mild to moderate aortic valvular leak Hypotension and shock, recovered and the patient is hemodynamically stable Acute febrile illness, currently afebrile Altered mental status, possibly explained by acute metabolic encephalopathy and sepsis, improving Acute leukocytosis, secondary to above Thrombocytopenia, chronic Anemia of chronic disease, secondary to end-stage renal disease. Elevated troponins, suspect supply/demand mismatch. History of TAVR. History of hyperlipidemia. Obesity, with a BMI of 33.5 kg/m. Obstructive sleep apnea, with home BiPAP device. Former tobacco smoker. Plan: Patient is currently on room air oxygen. May need O2 should there be any oxygen desaturation. Most recent chest x-ray shows stable findings without any acute abnormalities. continue IV cefazolin TREY may be recommended especially with his history of TAVR. Noted to follow-up blood cultures have been negative thus far. Hemodynamically stable Hemodialysis per nephrology and the patient had a hemodialysis session yesterday. Awaiting follow-up blood cultures, negative thus far Overall condition is stable and will continue to follow.
--- NOTE | 2024-02-24 15:13 | P.PN ---
Subjective Progress Note Date: 02/24/24 HISTORY OF PRESENT ILLNESS: This is a 78-year-old female with a past medical history significant for end- stage renal disease on hemodialysis, obstructive sleep apnea with CPAP use, hypertension, hyperlipidemia, diabetes, atrial flutter/fibrillation. Patient does not follow with a vp data locally. He follows with a physician at [facility]. We have been asked to see the patient in consultation for AF with RVR. Patient examined at the bedside in the ER. Patient was found to be septic and workup is ongoing per primary medicine. Patient was found to be in atrial fibrillation/flutter with RVR. Patient was placed on IV Cardizem which has since been discontinued. His rates are controlled at the time of examination. He is currently undergoing hemodialysis. Patient was placed on IV heparin. His Co umadin has not been resumed. DIAGNOSTICS: - EKG reveals atrial flutter with RVR. Left BBB - Chest xray cardiomegaly, pulmonary vascular congestion and bilateral pleural effusions - Laboratory data: BC 17.4. Hemoglobin 9.8. Platelet count 92. INR 1.9. Sodium 136. Potassium 3.5. BUN 87. Creatinine 4.79. Troponin 0.276 - Current home cardiac medications include Lovastatin 10 mg daily and Coumadin 2.5mg daily 02/18/2024 Patient examined this morning at the bedside. Currently denies chest pain or pressure. He denies shortness of breath. Telemetry reveals sinus mechanism. Patient's Coumadin has been placed on hold secondary to drop in hemoglobin. Hemoglobin this morning is improved at 9.3. Echocardiogram completed revealing ejection fraction 40 to 45%, false tendon seen in LV, mild MR, TAVR valve without stenosis, mild to moderate perivalvular aortic regurgitation, mild tricuspid regurgitation. 02/22 Cardiology signed off this case on [id number] but we have been asked to reassess the p atient for TREY due to bacteremia. Patient has been maintained on IV cefazolin. Patient is currently on BiPAP, blood pressure 132/73, heart rate 63. Repeat blood work reveals WBC 15.5, hemoglobin 8, INR is 3.9. 02/23 Blood pressure 125/66, heart rate 75, pulse ox 95% on room air. Patient is on BiPAP when sleeping or at nighttime. He has been afebrile. His mental status is slow to respond which apparently has been going on for several days. CAT scan of the brain last evening revealed no acute intracranial process. Patient is maintained on hemodialysis per nephrology. Hemoglobin 8, WBC 17.8. INR 3.3. Sodium 131, potassium 4.2, BUN 100 creatinine 7.15. PHYSICAL EXAM: VITAL SIGNS: Reviewed. GENERAL: Well-developed in no acute distress. HEENT: Head is normocephalic. Pupils are equal, round. Sclerae anicteric. Mucous membranes of the mouth are moist. Neck supple. No JVD or thyromegaly LUNGS: Respirations even and unlabored. Lungs essentially clear to auscultation bilaterally. HEART: Irregular rate and rhythm. S1 and S2 heard. + systolic murmur at the base ABDOMEN: Soft. Nondistended. Nontender. EXTREMITIES: No clubbing or cyanosis. Peripheral pulses intact. No lower extre mity edema ASSESSMENT: Sepsis with Staph aureus bacteremia of unclear etiology Atrial fibrillation with RVR, paroxysmal, on Coumadin Left bundle branch block End-stage renal disease on hemodialysis Abnormal troponin, likely secondary to CKD Anemia of chronic disease Hypertension Hyperlipidemia Diabetes Obstructive sleep apnea with CPAP use History of TAVR, July 2023, [facility] PLAN: N.p.o. after midnight Patient will be scheduled for TREY tomorrow with either Dr. Tamayo or with Dr. Johnson on Thursday. Continue cardiac medications: Atorvastatin, Lasix, Lopressor, Coumadin-pharmacy dosing Further recommendations pending patient course Nurse practitioner note has been reviewed by physician. Signing provider agrees with the documented findings, assessment, and plan of care documented by [facility] TECHNICIAN as a scribe. Objective - Vital Signs Vital signs: Vital Signs Temp 97.1 F L 02/24/24 04:00 Pulse 75 02/24/24 04:00 Resp 18 02/24/24 04:00 BP 133/55 02/24/24 04:00 Pulse Ox 95 02/24/24 04:00 FiO2 30 02/24/24 05:22 Intake & Output 02/23/24 02/24/24 02/24/24 18:59 06:59 18:59 Intake Total 240 Output Total 500 Balance -260 Weight 105 kg Intake: Oral 240 Output: Urine 500 Other: Voiding Method External Catheter External Catheter - Labs CBC & Chem 7: 02/24/24 09:58 02/24/24 09:58 Labs: Abnormal Lab Results - Last 24 Hours (Table) 02/23/24 02/23/24 02/23/24 Range/Units 10:01 10:01 10:01 WBC 15.5 H (3.8-10.6) k/uL RBC 2.55 L (4.30-5.90) m/uL Hgb 8.0 L (13.0-17.5) gm/dL Hct 24.3 L (39.0-53.0) % Neutrophils # 13.1 H (1.3-7.7) k/uL Lymphocytes # 0.9 L (1.0-4.8) k/uL PT 38.4 H (10.0-12.5) sec INR 3.9 H (<1.2) Sodium 132 L (137-145) mmol/L Chloride 94 L (98-107) mmol/L BUN 77 H (9-20) mg/dL Creatinine 5.38 H (0.66-1.25) mg/dL Glucose 118 H (74-99) mg/dL POC Glucose (mg/dL) (70-110) mg/dL Calcium 7.5 L (8.4-10.2) mg/dL Phosphorus 7.2 H (2.5-4.5) mg/dL 02/23/24 02/23/24 02/23/24 Range/Units 11:41 16:43 20:06 WBC (3.8-10.6) k/uL RBC (4.30-5.90) m/uL Hgb (13.0-17.5) gm/dL Hct (39.0-53.0) % Neutrophils # (1.3-7.7) k/uL Lymphocytes # (1.0-4.8) k/uL PT (10.0-12.5) sec INR (<1.2) Sodium (137-145) mmol/L Chloride (98-107) mmol/L BUN (9-20) mg/dL Creatinine (0.66-1.25) mg/dL Glucose (74-99) mg/dL POC Glucose (mg/dL) 132 H 205 H 163 H (70-110) mg/dL Calcium (8.4-10.2) mg/dL Phosphorus (2.5-4.5) mg/dL 05/22/24 Range/Units 05:40 WBC (3.8-10.6) k/uL RBC (4.30-5.90) m/uL Hgb (13.0-17.5) gm/dL Hct (39.0-53.0) % Neutrophils # (1.3-7.7) k/uL Lymphocytes # (1.0-4.8) k/uL PT (10.0-12.5) sec INR (<1.2) Sodium (137-145) mmol/L Chloride (98-107) mmol/L BUN (9-20) mg/dL Creatinine (0.66-1.25) mg/dL Glucose (74-99) mg/dL POC Glucose (mg/dL) 137 H (70-110) mg/dL Calcium (8.4-10.2) mg/dL Phosphorus (2.5-4.5) mg/dL Microbiology - Last 24 Hours (Table) 02/20/24 08:20 Blood Culture - Preliminary Blood
[2024-02-24 16:20] LABS: Glucose,Whole Blood 91 mg/dL (70-110)
[2024-02-24] MEDS: WARFARIN 1.5 MG TAB PO ONE (18:23)
[2024-02-24 20:32] LABS: Glucose,Whole Blood 220 mg/dL (70-110)
[2024-02-24] MEDS: ZINC OXIDE PASTE (Z-GUARD) 1 APPLIC TOPICAL SCH (20:40)
[2024-02-25 06:10] LABS: Glucose,Whole Blood 170 mg/dL (70-110)
[2024-02-25 11:03] LABS: INR 3.3 (<1.2); Prothrombin Time 32.2 sec (10.0-12.5)
[2024-02-25 11:17] LABS: Basophils % (A) 0 %; Eosinophils # (A) 0.1 k/uL (0-0.7); Eosinophils % (A) 1 %; HCT 24.3 % (39.0-53.0); HGB 8.1 gm/dL (13.0-17.5); Lymphocytes # (A) 0.9 k/uL (1.0-4.8); Lymphocytes % (A) 5 %; MCH 31.5 pg (25.0-35.0); MCHC 33.3 g/dL (31.0-37.0); MCV 94.5 fL (80.0-100.0); Mean Platelet Volume 8.9; Monocytes % (A) 6 %; Neutrophils # (A) 14.9 k/uL (1.3-7.7); Neutrophils % (A) 87 %; Platelet Count 237 k/uL (150-450); RBC 2.57 m/uL (4.30-5.90); RDW 15.3 % (11.5-15.5); WBC 17.1 k/uL (3.8-10.6)
[2024-02-25 11:22] LABS: Glucose,Whole Blood 116 mg/dL (70-110)
[2024-02-25 11:30] LABS: African American GFR (CKD) 11 (>60 ml/min/1.73 sqM); Anion Gap 9 mmol/L; Blood Urea Nitrogen 67 mg/dL (9-20); Calcium 7.7 mg/dL (8.4-10.2); Carbon Dioxide 26 mmol/L (22-30); Chloride 96 mmol/L (98-107); Glucose 102 mg/dL (74-99); Magnesium 2.1 mg/dL (1.6-2.3); Non-African American GFR(CKD) 10 (>60 ml/min/1.73 sqM); Potassium 3.9 mmol/L (3.5-5.1); Sodium 131 mmol/L (137-145)
--- NOTE | 2024-02-25 12:23 | P.PN ---
Subjective Patient is seen in follow-up for end-stage renal disease. He is maintained on hemodialysis on Thursday schedule. No chest pain or shortness of breath. Hemodynamically stable. Vital signs are stable. General: No acute distress. HEENT: Head exam is unremarkable. On room air. LUNGS: No audible rhonchi or wheezes. HEART: Rate and Rhythm are regular. ABDOMEN: Nontender. EXTREMITITES: No edema. Objective - Vital Signs Vital signs: Vital Signs Temp 98.7 F 02/25/24 08:15 Pulse 71 02/25/24 08:15 Resp 17 02/25/24 08:15 BP 125/64 02/25/24 08:15 Pulse Ox 97 02/25/24 08:15 FiO2 30 02/25/24 00:22 Intake & Output 02/24/24 02/25/24 02/25/24 18:59 06:59 18:59 Intake Total 110 240 Output Total 300 Balance 110 -60 Intake: IV 40 0.9 KVO 40 Oral 110 200 Output: Urine 300 Other: Voiding Method External Catheter External Catheter External Catheter - Labs CBC & Chem 7: 02/25/24 09:59 02/25/24 09:59 Labs: Abnormal Lab Results - Last 24 Hours (Table) 02/24/24 02/25/24 02/25/24 Range/Units 20:30 06:08 09:59 WBC (3.8-10.6) k/uL RBC (4.30-5.90) m/uL Hgb (13.0-17.5) gm/dL Hct (39.0-53.0) % Neutrophils # (1.3-7.7) k/uL Lymphocytes # (1.0-4.8) k/uL PT 32.2 H (10.0-12.5) sec INR 3.3 H (<1.2) Sodium (137-145) mmol/L Chloride (98-107) mmol/L BUN (9-20) mg/dL Creatinine (0.66-1.25) mg/dL Glucose (74-99) mg/dL POC Glucose (mg/dL) 220 H 170 H (70-110) mg/dL Calcium (8.4-10.2) mg/dL 05/23/24 05/23/24 05/23/24 Range/Units 09:59 09:59 11:21 WBC 17.1 H (3.8-10.6) k/uL RBC 2.57 L (4.30-5.90) m/uL Hgb 8.1 L (13.0-17.5) gm/dL Hct 24.3 L (39.0-53.0) % Neutrophils # 14.9 H (1.3-7.7) k/uL Lymphocytes # 0.9 L (1.0-4.8) k/uL PT (10.0-12.5) sec INR (<1.2) Sodium 131 L (137-145) mmol/L Chloride 96 L (98-107) mmol/L BUN 67 H (9-20) mg/dL Creatinine 5.25 H (0.66-1.25) mg/dL Glucose 102 H (74-99) mg/dL POC Glucose (mg/dL) 116 H (70-110) mg/dL Calcium 7.7 L (8.4-10.2) mg/dL Microbiology - Last 24 Hours (Table) 02/19/24 16:10 Blood Culture - Final Blood Assessment and Plan Plan: Assessment: 1. End-stage renal disease maintained on hemodialysis on Thursday schedule. 2. A-fib with RVR status post Cardizem drip. On Lopressor. 3. Diabetes mellitus. 4. MSSA bacteremia on antibiotics. ID following. TREY pending. 5. Hyperphosphatemia secondary to chronic kidney disease. Phosphorus level 7.2 dated February 23, 2024. On PhosLo. 6. Anemia of chronic kidney disease. On Aranesp. Plan: Hemodialysis tomorrow. Maintain torsemide.
--- NOTE | 2024-02-25 14:04 | P.PN ---
Subjective Progress Note Date: 02/25/24 Hospital Course: Patient is a 78-year-old male with with known diabetes, atrial fibrillation an ticoagulated with Coumadin, prior aortic valve replacement, dyslipidemia, end- stage renal disease on hemodialysis Thursday/Thursday/Thursday, and BPH who presented to the emergency department due to confusion and weakness. He had previously been to [facility] where he was noted to have a fever and elevated heart rate he was then discharged from the emergency department. When he went to go to dialysis they terminated after 1 hour due to a fever. On arrival to the emergency department he was noted to be febrile to 104.1 with a heart rate of 140. Initial laboratory analysis was remarkable for white blood cell count 19.4, platelets 131, lactic acid 2.6, troponin 0.12, and renal function consistent with his known dialysis. Influenza A/B/RSV/COVID-19 testing was negative. Initial chest x-ray demonstrated pulmonary vascular congestion. Patient was admitted for sepsis of unknown etiology and A-fib with RVR. He was to started on vancomycin and cefepime as well as a Cardizem drip. Critical care and cardiology were consulted. Echocardiogram was performed which demonstrated ejection fraction of 40 to 45% with mild to moderate perivalvular leak of his aortic valve replacement. Vascular surgery was consulted as his dialysis access is not working. And on 02/15 he underwent left upper extremity fistulogram with transluminal ballooning and thrombolysis at proximal aspect of graft. He then underwent hemodialysis and became slightly hypotensive requiring initiation of norepinephrine. He was subsequently transferred to the ICU. He had melanic stools. His hemoglobin stabilized and he had a recent outpatient colonoscopy without active bleeding. Blood cultures came back positive for MSSA. Currently on cefazolin. Patient does have a history of bioprosthetic aortic valve, TREY is pending. There was concern for possible aspiration. Speech therapy was consulted. 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 This can be advanced once mentation improves. Due to worsening mentation, CT head was ordered which was negative for any acute process. Mentation improved. Subjective: Patient seen and examined at bedside. No acute events overnight. No new complaints Pertinent positives and negatives as discussed above, a complete review of systems was performed and all other systems are negative. Vitals Signs Reviewed. General: Nontoxic, no distress, appears at stated age Derm: Warm, dry Head: Atraumatic, normocephalic, symmetric Eyes: EOMI, no lid lag, anicteric sclera Mouth: No lip lesion, mucus membranes moist Cardiovascular: S1S2 reg, no murmur Lungs: CTA bilateral, no rhonchi, no rales, no accessory muscle use Abdominal: Soft, nontender to palpation, no guarding, no appreciable organo megaly Ext: No gross muscle atrophy, trace peripheral edema, no contractures Neuro: CN II-XI grossly intact, no focal neuro deficits Psych: Alert, oriented x 3, appropriate affect Data Reviewed Today: Pertinent Labs: WBC 17.1, hemoglobin 8.1, INR 3.3, creatinine 5.25, sodium 131, blood glucose range between 10 2-1 70, magnesium 2.1 Imaging: No acute imaging Assessment and Plan: MSSA bacteremia with sepsis -Unclear source, possibly dialysis access -Continue IV cefazolin 2 g every 12 hours -Patient's last cultures done on 02/17/2024 are positive -Blood cultures from 02/19/2024 are negative to date -Infectious disease following, continue with cefazolin, no need for PICC line as it will go with dialysis. -Cardiology was consulted for TREY, patient does have a history of bioprosthetic aortic valve -Plan for TREY tomorrow End-stage renal disease on hemodialysis Thursday/Thursday/Thursday Malfunction AV graft- s/p angioplasty/thrombolysis of left subclavian vein -Nephrology note reviewed, continue PhosLo with meals, and torsemide 40 mg daily - Vascular now signed off Acute metabolic encephalopathy, resolved -CT head negative for any acute process. -Possible hypoactive delirium in the setting of acute illness -TSH normal, B12 level pending -Delirium precautions Melena, possible lower GI bleed resolved Normocytic anemia, probable acute blood loss with chronic renal disease and dialysis -Hemoglobin currently stable - GI was previously consulted, continue with Protonix for GI prophylaxis, diet as tolerated, recent colonoscopy with no active bleeding but positive occult stool. No plans for repeat endoscopic evaluation. - no indication for transfusion -Patient is on Coumadin pharmacy to dose, currently supratherapeutic Acute exacerbation of systolic congestive heart failure with ejection fraction 40 to 45% Atrial fibrillation with rapid ventricular response anticoagulated with coumadin Supratherapeutic INR Type II non-STEMI Dyslipidemia History of TAVR -Cardiology following, continue on Coumadin, pharmacy to dose -Lipitor 10 mg at night -Metoprolol 25 mg oral 3 times daily Thrombocytopenia, resolved Diabetes mellitus type 2 with hyperglycemia -At home patient takes Lantus 45 units at night and Alogliptin -A1c 8.8 -Continue Levemir 24 units at night, fixed dose NovoLog 2 units with each meal and continue with sliding scale insulin, monitor for hypoglycemia DVT prophylaxis: Coumadin Anticipated discharge date: Pending clinical course Anticipated discharge place: Pending clinical course Objective - Vital Signs Vital signs: Vital Signs Temp 97.3 F L 02/25/24 12:00 Pulse 85 02/25/24 12:00 Resp 18 02/25/24 12:00 BP 123/63 02/25/24 12:00 Pulse Ox 95 02/25/24 12:00 FiO2 30 02/25/24 00:22 Intake & Output 02/24/24 02/25/24 02/25/24 18:59 06:59 18:59 Intake Total 110 240 Output Total 300 Balance 110 -60 Intake: IV 40 0.9 KVO 40 Oral 110 200 Output: Urine 300 Other: Voiding Method External Catheter External Catheter External Catheter - Labs CBC & Chem 7: 02/25/24 09:59 02/25/24 09:59 Labs: Abnormal Lab Results - Last 24 Hours (Table) 02/24/24 02/25/24 02/25/24 Range/Units 20:30 06:08 09:59 WBC (3.8-10.6) k/uL RBC (4.30-5.90) m/uL Hgb (13.0-17.5) gm/dL Hct (39.0-53.0) % Neutrophils # (1.3-7.7) k/uL Lymphocytes # (1.0-4.8) k/uL PT 32.2 H (10.0-12.5) sec INR 3.3 H (<1.2) Sodium (137-145) mmol/L Chloride (98-107) mmol/L BUN (9-20) mg/dL Creatinine (0.66-1.25) mg/dL Glucose (74-99) mg/dL POC Glucose (mg/dL) 220 H 170 H (70-110) mg/dL Calcium (8.4-10.2) mg/dL 02/25/24 02/25/24 02/25/24 Range/Units 09:59 09:59 11:21 WBC 17.1 H (3.8-10.6) k/uL RBC 2.57 L (4.30-5.90) m/uL Hgb 8.1 L (13.0-17.5) gm/dL Hct 24.3 L (39.0-53.0) % Neutrophils # 14.9 H (1.3-7.7) k/uL Lymphocytes # 0.9 L (1.0-4.8) k/uL PT (10.0-12.5) sec INR (<1.2) Sodium 131 L (137-145) mmol/L Chloride 96 L (98-107) mmol/L BUN 67 H (9-20) mg/dL Creatinine 5.25 H (0.66-1.25) mg/dL Glucose 102 H (74-99) mg/dL POC Glucose (mg/dL) 116 H (70-110) mg/dL Calcium 7.7 L (8.4-10.2) mg/dL Microbiology - Last 24 Hours (Table) 02/19/24 16:10 Blood Culture - Final Blood
--- NOTE | 2024-02-25 14:13 | P.PN ---
Subjective Progress Note Date: 02/25/24 On today's evaluation of 02/22/2024, seen the patient for a follow-up. The patient is currently undergoing hemodialysis and is resting comfortably in bed while awaiting a BiPAP at a pressure of 10/5 with an FiO2 of 30%. No significant respiratory distress at this point in time. Noted the patient had staphylococcal bacteremia/MSSA and the patient is currently on IV cefazolin. Pulse ox is in the order of 94% while wearing the BiPAP. No labs are available from today. Yesterday's labs were noted. The white cell count at 13.7 with a hemoglobin of 8.1 and a platelet count of 140. The most recent chest x-ray from 02/18/2024 showed cardiomegaly and mild pulm vascular congestion. No evidence of any consolidation or airspace disease. Echocardiogram on 02/16/2024 showed left- ventricular ejection fraction of 40 to 45%, global hypokinesis, moderately decreased LV function, the aortic valve had some mild to moderate para valvular leak otherwise, no other significant valvular abnormalities noted. The patient is otherwise calm and comfortable. His comorbid conditions include end-stage renal disease on hemodialysis 3 times a week and the patient has a malfunctioning AV graft and the patient is status post angioplasty and thrombolysis of the left subclavian vein. Nephrology on the case. Vascular surgery is also on the case. Hemoglobin is stable for now and there is no evidence of any GI bleeding. The patient has been anticoagulated regarding chronic atrial fibrillation. The patient has hyperlipidemia, diabetes mellitus type 2 as comorbid conditions. The patient is post TAVR procedure with some mild to moderate aortic valvular leak. 02/23/2024, the patient is being seen for a follow-up. This patient is 78 and the patient has MSSA septicemia currently on IV cefazolin. The most recent follow-up blood cultures from [facility] on 02/20/2024 were negative. The patient remains hemodynamically stable. On today's blood work, there is a white cell count of 15.5 with a hemoglobin of 8 and a platelet count of 211. The sodium level is 132, BUN 77 creatinine 5.38 and a potassium level is at 3.9. INR is currently at 3.9. Patient remains on IV cefazolin. The patient is on Levemir insulin 24 units at bedtime along with NovoLog 2 units with meals + scale coverage. Remains on Demadex 40 mg p.o. daily. Remains on Flomax. The CAT scan of the brain was done today and showed no acute abnormalities and there was some nonspecific white matter changes likely secondary to chronic small vessel ischemic disease. At the same time, a chest x-ray was repeated today and shows essentially stable findings with some calcification along the pleural surface and the right and mild pulm vessel congestion without any significant interval changes compared to the earlier chest x-ray. Respiratory status is stable. The patient is currently off the BiPAP initially at 2 L and subsequently out of her oxygen with a pulse ox of 96%. The patient is also being seen by infectious disease. TREY has been ordered. The patient is being seen by nephrology. Regarding his end-stage renal disease and the patient is undergoing hemodialysis MWF. No problems with dialysis and his last dialysis session was done yesterday. No reported shortness of breath at this point in time. His MSSA bacteremia is still being investigated and the patient is being considered for a TREY. On today's evaluation of 02/24/2024, the patient is essentially unchanged. Calm and comfortable, resting comfortably in bed. No significant respiratory distress. He remains on oxygen on room air with a pulse ox of 95%. No cough. No sputum production. No chest tightness. No wheezing. Obese, 17.8 with a hemoglobin of 8 and a platelet count of 236. BUN is 100 and the creatinine is at 7.1 and a sodium levels at 131. The patient has end-stage renal disease and the patient undergoes hemodialysis 3 times a week and he is scheduled to undergo hemodialysis today. Afebrile. Remains on IV cefazolin. Repeated blood culture s from 03/03/2024 on 02/20/2024 were negative. On 02/25/2024, seen the patient for a follow-up. Resting comfortably in bed on room air oxygen. No respiratory distress. Last hemodialysis session was y . No chest pain. No shortness of breath. Hemodynamically stable. White cell count at 17 with a hemoglobin 8.1. INR is at 3.3. BUN 67 with a creatinine of 5.25 and a potassium level of 3.9. Afebrile for now. Repeat blood cultures have been negative thus far. Objective - Vital Signs Vital signs: Vital Signs Temp 98.7 F 02/25/24 03:43 Pulse 77 05/23/24 03:43 Resp 16 02/25/24 03:43 BP 132/60 02/25/24 03:43 Pulse Ox 99 02/25/24 03:43 FiO2 30 02/25/24 00:22 Intake & Output 02/24/24 02/25/24 02/25/24 18:59 06:59 18:59 Intake Total 110 240 Output Total 300 Balance 110 -60 Intake: IV 40 0.9 KVO 40 Oral 110 200 Output: Urine 300 Other: Voiding Method External Catheter External Catheter - Exam No acute distress, oriented 3. The patient is currently on BiPAP which is running at a pressure of 10/5 with an FiO2 of 30%, no signs of any significant respiratory distress head exam was generally normal. There was no scleral icterus or corneal arcus. Mucous membranes were moist. HEENT examination is grossly unremarkable. Mucous membranes are moist. No oral lesions. Neck supple. Full range of motion. No adenopathy thyromegaly or neck vein distention. Cardiovascular examination reveals regular rhythm rate. S1-S2 normal. No S3 or S4. No discernible murmur noted. Heart sounds distant. Lungs reveal mild bibasilar crackles. No wheezes or rhonchi. Breath sounds are equal bilaterally. Abdomen soft bowel sounds are heard. No masses or tenderness. Extremities are intact. No cyanosis clubbing or edema. Skin is without rash or lesion. Neurologic examination is brief but nonfocal. - Labs CBC & Chem 7: 02/25/24 09:59 02/25/24 09:59 Labs: Abnormal Lab Results - Last 24 Hours (Table) 02/24/24 02/24/24 02/24/24 Range/Units 09:58 09:58 09:58 WBC 17.8 H (3.8-10.6) k/uL RBC 2.53 L (4.30-5.90) m/uL Hgb 8.0 L (13.0-17.5) gm/dL Hct 24.1 L (39.0-53.0) % Neutrophils # 15.8 H (1.3-7.7) k/uL Lymphocytes # 0.9 L (1.0-4.8) k/uL PT 32.0 H (10.0-12.5) sec INR 3.3 H (<1.2) Sodium 131 L (137-145) mmol/L Chloride 95 L (98-107) mmol/L BUN 100 H (9-20) mg/dL Creatinine 7.15 H* (0.66-1.25) mg/dL Glucose 104 H (74-99) mg/dL POC Glucose (mg/dL) (70-110) mg/dL Calcium 7.5 L (8.4-10.2) mg/dL 02/24/24 02/24/24 02/25/24 Range/Units 11:27 20:30 06:08 WBC (3.8-10.6) k/uL RBC (4.30-5.90) m/uL Hgb (13.0-17.5) gm/dL Hct (39.0-53.0) % Neutrophils # (1.3-7.7) k/uL Lymphocytes # (1.0-4.8) k/uL PT (10.0-12.5) sec INR (<1.2) Sodium (137-145) mmol/L Chloride (98-107) mmol/L BUN (9-20) mg/dL Creatinine (0.66-1.25) mg/dL Glucose (74-99) mg/dL POC Glucose (mg/dL) 139 H 220 H 170 H (70-110) mg/dL Calcium (8.4-10.2) mg/dL Microbiology - Last 24 Hours (Table) 02/19/24 16:10 Blood Culture - Final Blood Assessment and Plan Plan: Acute hypoxemic respiratory failure, likely secondary to a combination of fluid overload and acute systolic CHF exacerbation. Currently on room air oxygen and clinically improved End-stage renal disease, receiving hemodialysis on a Thursday, Thursday, Thursday schedule. The patient apparently had a nonfunctioning AV fistula, and, the patient was to undergo a left upper extremity fistulogram, with ultrasound- guided access, PTBA, and thrombolysis. Subsequent to the graft working. The hemodialysis was last performed yesterday on 02/24/2024 and nephrology on the case Atrial fibrillation with rapid ventricular response, rate is under adequate control for now Staph aureus sepsis and the patient presented with bacteremia and sepsis, secondary to methicillin sensitive Staphylococcus aureus. The patient remains on IV cefazolin. No indication of any endocarditis based on the transthoracic echocardiogram. Patient is being considered for a TREY. History of TAVR with aortic valve replacement with mild to moderate aortic valvular leak Hypotension and shock, recovered and the patient is hemodynamically stable Acute febrile illness, currently afebrile Altered mental status, possibly explained by acute metabolic encephalopathy and sepsis, improving Acute leukocytosis, secondary to above Thrombocytopenia, chronic Anemia of chronic disease, secondary to end-stage renal disease. Elevated troponins, suspect supply/demand mismatch. History of TAVR. History of hyperlipidemia. Obesity, with a BMI of 33.5 kg/m. Obstructive sleep apnea, with home BiPAP device. Former tobacco smoker. Plan: Patient is currently on room air oxygen. May need O2 should there be any oxygen desaturation. Most recent chest x-ray shows stable findings without any acute abnormalities. continue IV cefazolin TREY may be recommended especially with his history of TAVR. Noted to follow-up blood cultures have been negative thus far. Hemodynamically stable Hemodialysis per nephrology, last hemodialysis session was yesterday Awaiting follow-up blood cultures, negative thus far Overall condition is stable and will continue to follow.
--- NOTE | 2024-02-25 14:35 | P.PN ---
Subjective Progress Note Date: 02/25/24 HISTORY OF PRESENT ILLNESS: This is a 78-year-old female with a past medical history significant for end- stage renal disease on hemodialysis, obstructive sleep apnea with CPAP use, hypertension, hyperlipidemia, diabetes, atrial flutter/fibrillation. Patient does not follow with a senior sales associate locally. He follows with a physician at [facility]. We have been asked to see the patient in consultation for AF with RVR. Patient examined at the bedside in the ER. Patient was found to be septic and workup is ongoing per primary medicine. Patient was found to be in atrial fibrillation/flutter with RVR. Patient was placed on IV Cardizem which has since been discontinued. His rates are controlled at the time of examination. He is currently undergoing hemodialysis. Patient was placed on IV heparin. His Co umadin has not been resumed. DIAGNOSTICS: - EKG reveals atrial flutter with RVR. Left BBB - Chest xray cardiomegaly, pulmonary vascular congestion and bilateral pleural effusions - Laboratory data: BC 17.4. Hemoglobin 9.8. Platelet count 92. INR 1.9. Sodium 136. Potassium 3.5. BUN 87. Creatinine 4.79. Troponin 0.276 - Current home cardiac medications include Lovastatin 10 mg daily and Coumadin 2.5mg daily 02/18/2024 Patient examined this morning at the bedside. Currently denies chest pain or pressure. He denies shortness of breath. Telemetry reveals sinus mechanism. Patient's Coumadin has been placed on hold secondary to drop in hemoglobin. Hemoglobin this morning is improved at 9.3. Echocardiogram completed revealing ejection fraction 40 to 45%, false tendon seen in LV, mild MR, TAVR valve without stenosis, mild to moderate perivalvular aortic regurgitation, mild tricuspid regurgitation. 02/22 Cardiology signed off this case on [id number] but we have been asked to reassess the p atient for TREY due to bacteremia. Patient has been maintained on IV cefazolin. Patient is currently on BiPAP, blood pressure 132/73, heart rate 63. Repeat blood work reveals WBC 15.5, hemoglobin 8, INR is 3.9. 02/23 Blood pressure 125/66, heart rate 75, pulse ox 95% on room air. Patient is on BiPAP when sleeping or at nighttime. He has been afebrile. His mental status is slow to respond which apparently has been going on for several days. CAT scan of the brain last evening revealed no acute intracranial process. Patient is maintained on hemodialysis per nephrology. Hemoglobin 8, WBC 17.8. INR 3.3. Sodium 131, potassium 4.2, BUN 100 creatinine 7.15. 02/24 Patient will be scheduled for a TREY tomorrow with Dr. Judy Diaz. ASSESSMENT: Sepsis with Staph aureus bacteremia of unclear etiology Atrial fibrillation with RVR, paroxysmal, on Coumadin Left bundle branch block End-stage renal disease on hemodialysis Abnormal troponin, likely secondary to CKD Anemia of chronic disease Hypertension Hyperlipidemia Diabetes Obstructive sleep apnea with CPAP use History of TAVR, July 2023, [facility] PLAN: N.p.o. after midnight Patient will be scheduled for TREY tomorrow with Dr. Diaz Continue cardiac medications: Atorvastatin, Lasix, Lopressor, Coumadin-pharmacy dosing Further recommendations pending patient course Nurse practitioner note has been reviewed by physician. Signing provider agrees with the documented findings, assessment, and plan of care documented by CHIEF SAFETY OFFICER as a scribe. Objective - Vital Signs Vital signs: Vital Signs Temp 97.3 F L 02/25/24 12:00 Pulse 85 02/25/24 12:00 Resp 18 02/25/24 12:00 BP 123/63 02/25/24 12:00 Pulse Ox 95 02/25/24 12:00 FiO2 30 02/25/24 00:22 Intake & Output 02/24/24 02/25/24 02/25/24 18:59 06:59 18:59 Intake Total 110 240 Output Total 300 Balance 110 -60 Intake: IV 40 0.9 KVO 40 Oral 110 200 Output: Urine 300 Other: Voiding Method External Catheter External Catheter External Catheter - Labs CBC & Chem 7: 02/25/24 09:59 02/25/24 09:59 Labs: Abnormal Lab Results - Last 24 Hours (Table) 02/24/24 02/25/24 02/25/24 Range/Units 20:30 06:08 09:59 WBC (3.8-10.6) k/uL RBC (4.30-5.90) m/uL Hgb (13.0-17.5) gm/dL Hct (39.0-53.0) % Neutrophils # (1.3-7.7) k/uL Lymphocytes # (1.0-4.8) k/uL PT 32.2 H (10.0-12.5) sec INR 3.3 H (<1.2) Sodium (137-145) mmol/L Chloride (98-107) mmol/L BUN (9-20) mg/dL Creatinine (0.66-1.25) mg/dL Glucose (74-99) mg/dL POC Glucose (mg/dL) 220 H 170 H (70-110) mg/dL Calcium (8.4-10.2) mg/dL 02/25/24 02/25/24 02/25/24 Range/Units 09:59 09:59 11:21 WBC 17.1 H (3.8-10.6) k/uL RBC 2.57 L (4.30-5.90) m/uL Hgb 8.1 L (13.0-17.5) gm/dL Hct 24.3 L (39.0-53.0) % Neutrophils # 14.9 H (1.3-7.7) k/uL Lymphocytes # 0.9 L (1.0-4.8) k/uL PT (10.0-12.5) sec INR (<1.2) Sodium 131 L (137-145) mmol/L Chloride 96 L (98-107) mmol/L BUN 67 H (9-20) mg/dL Creatinine 5.25 H (0.66-1.25) mg/dL Glucose 102 H (74-99) mg/dL POC Glucose (mg/dL) 116 H (70-110) mg/dL Calcium 7.7 L (8.4-10.2) mg/dL Microbiology - Last 24 Hours (Table) 02/19/24 16:10 Blood Culture - Final Blood
[2024-02-25 16:31] LABS: Glucose,Whole Blood 207 mg/dL (70-110)
--- NOTE | 2024-02-25 16:41 | P.PN ---
Subjective Progress Note Date: 02/24/24 Principal diagnosis: Reason for follow-up with MSSA bacteremia Patient is a 78-year-old male with a past medical his significant for diabetes mellitus hypertension hyperlipidemia atrial fibrillation history of end-stage renal disease on dialysis through left arm AV graft patient has been brought into the hospital for fever weakness and did have bacteremia. On today's evaluation that is 02/24/2024, Patient is afebrile patient is currently on room air and denies having any shortness of breath, the patient denies any chest pain or cough, the patient denies any nausea vomiting did not have any abdominal pain and no diarrhea has been reported Patient white count is 17.8 creatinine 7.15 Objective - Vital Signs Vital signs: Vital Signs Temp 97.4 F L 02/24/24 11:50 Pulse 75 02/24/24 11:50 Resp 16 02/24/24 11:50 BP 125/66 02/24/24 11:50 Pulse Ox 95 02/24/24 11:50 FiO2 30 02/24/24 05:22 Intake & Output 02/23/24 02/24/24 02/24/24 18:59 06:59 18:59 Intake Total 240 110 Output Total 500 Balance -260 110 Weight 105 kg Intake: Oral 240 110 Output: Urine 500 Other: Voiding Method External Catheter External Catheter External Catheter - Exam GENERAL DESCRIPTION: An elderly male up in the chair in no distress RESPIRATORY SYSTEM: Unlabored breathing , decreased breath sounds at bases HEART: S1 S2 regular rate and rhythm , ABDOMEN: Soft , no tenderness EXTREMITIES: No edema feet - Labs CBC & Chem 7: 02/25/24 09:59 02/25/24 09:59 Labs: Abnormal Lab Results - Last 24 Hours (Table) 02/23/24 02/23/24 02/24/24 Range/Units 16:43 20:06 05:40 WBC (3.8-10.6) k/uL RBC (4.30-5.90) m/uL Hgb (13.0-17.5) gm/dL Hct (39.0-53.0) % Neutrophils # (1.3-7.7) k/uL Lymphocytes # (1.0-4.8) k/uL PT (10.0-12.5) sec INR (<1.2) Sodium (137-145) mmol/L Chloride (98-107) mmol/L BUN (9-20) mg/dL Creatinine (0.66-1.25) mg/dL Glucose (74-99) mg/dL POC Glucose (mg/dL) 205 H 163 H 137 H (70-110) mg/dL Calcium (8.4-10.2) mg/dL 02/24/24 02/24/24 02/24/24 Range/Units 09:58 09:58 09:58 WBC 17.8 H (3.8-10.6) k/uL RBC 2.53 L (4.30-5.90) m/uL Hgb 8.0 L (13.0-17.5) gm/dL Hct 24.1 L (39.0-53.0) % Neutrophils # 15.8 H (1.3-7.7) k/uL Lymphocytes # 0.9 L (1.0-4.8) k/uL PT 32.0 H (10.0-12.5) sec INR 3.3 H (<1.2) Sodium 131 L (137-145) mmol/L Chloride 95 L (98-107) mmol/L BUN 100 H (9-20) mg/dL Creatinine 7.15 H* (0.66-1.25) mg/dL Glucose 104 H (74-99) mg/dL POC Glucose (mg/dL) (70-110) mg/dL Calcium 7.5 L (8.4-10.2) mg/dL 02/24/24 Range/Units 11:27 WBC (3.8-10.6) k/uL RBC (4.30-5.90) m/uL Hgb (13.0-17.5) gm/dL Hct (39.0-53.0) % Neutrophils # (1.3-7.7) k/uL Lymphocytes # (1.0-4.8) k/uL PT (10.0-12.5) sec INR (<1.2) Sodium (137-145) mmol/L Chloride (98-107) mmol/L BUN (9-20) mg/dL Creatinine (0.66-1.25) mg/dL Glucose (74-99) mg/dL POC Glucose (mg/dL) 139 H (70-110) mg/dL Calcium (8.4-10.2) mg/dL Microbiology - Last 24 Hours (Table) 02/20/24 08:20 Blood Culture - Preliminary Blood Assessment and Plan (1) Leukocytosis Current Visit: Yes Status: Acute Code(s): D72.829 - ELEVATED WHITE BLOOD CELL COUNT, UNSPECIFIED SNOMED Code(s): 431258446 (2) MSSA bacteremia Current Visit: Yes Status: Acute Code(s): R78.81 - BACTEREMIA; B95.61 - METHICILLIN SUSCEP STAPH INFCT CAUSING DIS CLASSD ELSWHR SNOMED Code(s): 138637599 Plan: 1patient with MSSA bacteremia in this patient who do have a history of renal failure with on hemodialysis with a left arm fistula site with presentation to the hospital with weakness fall and urinary frequency however UA is negative abdominal soft no significant respiratory symptoms or hypoxemia question of possible related to the fistula site which was nonfunctioning and did have angiogram and angioplasty done this admission. 2blood cultures repeated 02/17/2024 came back positive blood culture has been repeated 02/19/2024 as well as 02/20/2024 are so far negative keeping in mind his TAVR procedure, cardiology has been consulted for TREY which is currently pending completion patient is currently covered with cefazolin to continue monitor clinical course closely Dictation was produced using [employer] dictation software. please excuse any grammatical, word or spelling errors. Time with Patient: Less than 30
--- NOTE | 2024-02-25 16:42 | P.PN ---
Subjective Progress Note Date: 02/25/24 Principal diagnosis: Reason for follow-up with MSSA bacteremia Patient is a 78-year-old male with a past medical his significant for diabetes mellitus hypertension hyperlipidemia atrial fibrillation history of end-stage renal disease on dialysis through left arm AV graft patient has been brought into the hospital for fever weakness and did have bacteremia. On today's evaluation that is 02/25/2024, patient has been afebrile, patient is breathing comfortably and is currently on room air, patient denies having any significant cough no chest pain shortness of breath, patient denies nausea vomiting or diarrhea and no abdominal pain Patient white count is slightly down to 17.1 creatinine is 5.25 Objective - Vital Signs Vital signs: Vital Signs Temp 97.3 F L 02/25/24 12:00 Pulse 85 02/25/24 12:00 Resp 18 02/25/24 12:00 BP 123/63 02/25/24 12:00 Pulse Ox 95 02/25/24 12:00 FiO2 30 02/25/24 00:22 Intake & Output 02/24/24 02/25/24 02/25/24 18:59 06:59 18:59 Intake Total 110 240 Output Total 300 Balance 110 -60 Intake: IV 40 0.9 KVO 40 Oral 110 200 Output: Urine 300 Other: Voiding Method External Catheter External Catheter External Catheter - Exam GENERAL DESCRIPTION: An elderly male up in the chair in no distress RESPIRATORY SYSTEM: Unlabored breathing , decreased breath sounds at bases HEART: S1 S2 regular rate and rhythm , ABDOMEN: Soft , no tenderness EXTREMITIES: No edema feet - Labs CBC & Chem 7: 02/25/24 09:59 02/25/24 09:59 Labs: Abnormal Lab Results - Last 24 Hours (Table) 02/24/24 02/25/24 02/25/24 Range/Units 20:30 06:08 09:59 WBC (3.8-10.6) k/uL RBC (4.30-5.90) m/uL Hgb (13.0-17.5) gm/dL Hct (39.0-53.0) % Neutrophils # (1.3-7.7) k/uL Lymphocytes # (1.0-4.8) k/uL PT 32.2 H (10.0-12.5) sec INR 3.3 H (<1.2) Sodium (137-145) mmol/L Chloride (98-107) mmol/L BUN (9-20) mg/dL Creatinine (0.66-1.25) mg/dL Glucose (74-99) mg/dL POC Glucose (mg/dL) 220 H 170 H (70-110) mg/dL Calcium (8.4-10.2) mg/dL 02/25/24 02/25/24 02/25/24 Range/Units 09:59 09:59 11:21 WBC 17.1 H (3.8-10.6) k/uL RBC 2.57 L (4.30-5.90) m/uL Hgb 8.1 L (13.0-17.5) gm/dL Hct 24.3 L (39.0-53.0) % Neutrophils # 14.9 H (1.3-7.7) k/uL Lymphocytes # 0.9 L (1.0-4.8) k/uL PT (10.0-12.5) sec INR (<1.2) Sodium 131 L (137-145) mmol/L Chloride 96 L (98-107) mmol/L BUN 67 H (9-20) mg/dL Creatinine 5.25 H (0.66-1.25) mg/dL Glucose 102 H (74-99) mg/dL POC Glucose (mg/dL) 116 H (70-110) mg/dL Calcium 7.7 L (8.4-10.2) mg/dL Microbiology - Last 24 Hours (Table) 02/19/24 16:10 Blood Culture - Final Blood Assessment and Plan (1) Leukocytosis Current Visit: Yes Status: Acute Code(s): D72.829 - ELEVATED WHITE BLOOD CELL COUNT, UNSPECIFIED SNOMED Code(s): 079464621 (2) MSSA bacteremia Current Visit: Yes Status: Acute Code(s): R78.81 - BACTEREMIA; B95.61 - METHICILLIN SUSCEP STAPH INFCT CAUSING DIS CLASSD ELSWHR SNOMED Code(s): 716941621 Plan: 1patient with MSSA bacteremia in this patient who do have a history of renal failure with on hemodialysis with a left arm fistula site with presentation to the hospital with weakness fall and urinary frequency however UA is negative abdominal soft no significant respiratory symptoms or hypoxemia question of possible related to the fistula site which was nonfunctioning and did have angiogram and angioplasty done this admission. 2blood cultures repeated 02/17/2024 came back positive blood culture has been repeated 02/19/2024 as well as 02/20/2024 are so far negative keeping in mind his TAVR procedure, cardiology has been consulted for TREY which is currently pending completion patient white count is still elevated which is slightly concerning antibiotic will be adjusted to Naficilin and repeat CBC and CRP with a.m. lab Dictation was produced using [employer] dictation software. please excuse any grammatical, word or spelling errors. Time with Patient: Less than 30
[2024-02-25] MEDS: WARFARIN 1 MG TAB PO ONE (17:15)
[2024-02-25] MEDS: NAFCILLIN 2 GM in DEXTROSE 5% IN WATER 100 ML IVPB SCH (17:16)
[2024-02-25 20:17] LABS: Glucose,Whole Blood 261 mg/dL (70-110)
[2024-02-26 06:12] LABS: Glucose,Whole Blood 188 mg/dL (70-110)
[2024-02-26] MEDS: BENZOCAINE SPRAY 1 CAN TOPICAL ONE (08:52)
[2024-02-26] MEDS: fentaNYL (PF) 50 MCG/ML 2 ML AMP IVP ONE (08:53)
[2024-02-26] MEDS: MIDAZOLAM 2 MG/2 ML VIAL IVP ONE (08:53)
[2024-02-26 09:11] LABS: Basophils # (A) 0.1 k/uL (0-0.2); Basophils % (A) 0 %; Eosinophils # (A) 0.2 k/uL (0-0.7); Eosinophils % (A) 1 %; HCT 26.3 % (39.0-53.0); HGB 8.4 gm/dL (13.0-17.5); Lymphocytes % (A) 6 %; MCH 30.6 pg (25.0-35.0); MCHC 31.8 g/dL (31.0-37.0); MCV 96.2 fL (80.0-100.0); Mean Platelet Volume 8.7; Monocytes # (A) 0.9 k/uL (0-1.0); Monocytes % (A) 6 %; Neutrophils # (A) 14.3 k/uL (1.3-7.7); Neutrophils % (A) 86 %; Platelet Count 227 k/uL (150-450); RBC 2.74 m/uL (4.30-5.90); RDW 15.3 % (11.5-15.5); WBC 16.7 k/uL (3.8-10.6)
[2024-02-26 09:14] LABS: INR 4.7 (<1.2); Prothrombin Time 45.6 sec (10.0-12.5)
--- NOTE | 2024-02-26 09:40 | ECHOT ---
TRANSESOPHAGEAL ECHOCARDIOGRAM INDICATION: Infective endocarditis. This is a 78-year-old gentleman with persistently abnormal blood cultures, who was advised to undergo transesophageal echo to rule out a vegetation. The patient understands risks, benefits, and alternatives. PROCEDURE NOTE: After obtaining informed consent, transesophageal echocardiogram was performed in left lateral position using an Omniplane probe. Local and IV sedation were obtained using Xylocaine spray, 2 mg of Versed and 25 mcg of fentanyl. The patient tolerated the procedure well without any obvious immediate complications. FINDINGS: 1. Mitral valve. There is a large vegetation attached to the anterior mitral leaflet that is freely floating back and forth into the atria. There is mild to moderate mitral regurgitation noted. Tricuspid valve shows mild tricuspid regurgitation. There is a bioprosthetic valve in aortic position with mild aortic regurgitation. Left atrium appears mildly enlarged. Right atrium and right ventricle seem within normal limits. Aortic root does not appear enlarged. 2. Left ventricle has normal size and systolic function. 3. Interatrial septum. There is no evidence of [id number] shunt by color-flow Doppler or [id number] shunt by agitated saline contrast study. CONCLUSION: Large vegetation is noted over the anterior mitral leaflet consistent with a diagnosis of infective endocarditis. The patient also has a bioprosthetic valve in aortic position. I do not see any vegetation over the aortic valve. There is mild-to- moderate aortic regurgitation noted. MMODL / IJN: [id number] /
[2024-02-26] MEDS: fentaNYL (PF) 50 MCG/ML 2 ML AMP ONE (09:43)
[2024-02-26 10:22] LABS: ALT 12 U/L (4-49); African American GFR (CKD) 8 (>60 ml/min/1.73 sqM); Albumin 2.6 g/dL (3.5-5.0); Blood Urea Nitrogen 94 mg/dL (9-20); Glucose 152 mg/dL (74-99); Non-African American GFR(CKD) 7 (>60 ml/min/1.73 sqM); Total Protein 5.7 g/dL (6.3-8.2)
--- NOTE | 2024-02-26 10:45 | P.PN ---
Subjective Patient is seen in follow-up for end-stage renal disease. He is maintained on hemodialysis on Thursday schedule. No chest pain or shortness of breath. Hemodynamically stable. Scheduled for dialysis today. Vital signs are stable. General: No acute distress. HEENT: Head exam is unremarkable. On room air. LUNGS: No audible rhonchi or wheezes. HEART: Rate and Rhythm are regular. ABDOMEN: Nontender. EXTREMITITES: No edema. Objective - Vital Signs Vital signs: Vital Signs Temp 98.2 F 02/26/24 09:38 Pulse 74 02/26/24 10:13 Resp 18 02/26/24 10:13 BP 122/58 02/26/24 09:38 Pulse Ox 100 02/26/24 09:38 FiO2 30 02/26/24 04:47 Intake & Output 02/25/24 02/26/24 02/26/24 18:59 06:59 18:59 Intake Total 200 Output Total 0 Balance 200 Intake: Intake, IV Titration 200 Amount Nafcillin 2 gm In 200 Dextrose 5% in Water 100 ml @ 50 mls/hr IVPB Q4HR [facility] Rx#:[id number] Output: Stool 0 Other: Voiding Method External Catheter External Catheter External Catheter # Voids 1 - Labs CBC & Chem 7: 02/26/24 08:34 02/25/24 09:59 Labs: Abnormal Lab Results - Last 24 Hours (Table) 02/25/24 02/25/24 02/25/24 Range/Units 09:59 09:59 09:59 WBC 17.1 H (3.8-10.6) k/uL RBC 2.57 L (4.30-5.90) m/uL Hgb 8.1 L (13.0-17.5) gm/dL Hct 24.3 L (39.0-53.0) % Neutrophils # 14.9 H (1.3-7.7) k/uL Lymphocytes # 0.9 L (1.0-4.8) k/uL PT 32.2 H (10.0-12.5) sec INR 3.3 H (<1.2) Sodium 131 L (137-145) mmol/L Chloride 96 L (98-107) mmol/L BUN 67 H (9-20) mg/dL Creatinine 5.25 H (0.66-1.25) mg/dL Glucose 102 H (74-99) mg/dL POC Glucose (mg/dL) (70-110) mg/dL Calcium 7.7 L (8.4-10.2) mg/dL Vitamin B12 1552.0 H (200.0-944.0) pg/mL 02/25/24 02/25/24 02/25/24 Range/Units 11:21 16:29 20:15 WBC (3.8-10.6) k/uL RBC (4.30-5.90) m/uL Hgb (13.0-17.5) gm/dL Hct (39.0-53.0) % Neutrophils # (1.3-7.7) k/uL Lymphocytes # (1.0-4.8) k/uL PT (10.0-12.5) sec INR (<1.2) Sodium (137-145) mmol/L Chloride (98-107) mmol/L BUN (9-20) mg/dL Creatinine (0.66-1.25) mg/dL Glucose (74-99) mg/dL POC Glucose (mg/dL) 116 H 207 H 261 H (70-110) mg/dL Calcium (8.4-10.2) mg/dL Vitamin B12 (200.0-944.0) pg/mL 02/26/24 02/26/24 02/26/24 Range/Units 06:10 08:34 08:34 WBC 16.7 H (3.8-10.6) k/uL RBC 2.74 L (4.30-5.90) m/uL Hgb 8.4 L (13.0-17.5) gm/dL Hct 26.3 L (39.0-53.0) % Neutrophils # 14.3 H (1.3-7.7) k/uL Lymphocytes # (1.0-4.8) k/uL PT 45.6 H (10.0-12.5) sec INR 4.7 H (<1.2) Sodium (137-145) mmol/L Chloride (98-107) mmol/L BUN (9-20) mg/dL Creatinine (0.66-1.25) mg/dL Glucose (74-99) mg/dL POC Glucose (mg/dL) 188 H (70-110) mg/dL Calcium (8.4-10.2) mg/dL Vitamin B12 (200.0-944.0) pg/mL Microbiology - Last 24 Hours (Table) 02/20/24 08:20 Blood Culture - Final Blood Assessment and Plan Plan: Assessment: 1. End-stage renal disease maintained on hemodialysis on Thursday schedule. 2. A-fib with RVR status post Cardizem drip. On Lopressor. 3. Diabetes mellitus. 4. MSSA bacteremia on antibiotics. ID following. TREY showed a large vegetation on the mitral valve. CTS consulted. 5. Hyperphosphatemia secondary to chronic kidney disease. Phosphorus level 7.2 dated February 23, 2024. On PhosLo. 6. Anemia of chronic kidney disease. On Aranesp. Plan: Hemodialysis today. Maintain torsemide.
[2024-02-26 10:53] LABS: AST 43 U/L (17-59); Alkaline Phosphatase 94 U/L (38-126); Anion Gap 12 mmol/L; C Reactive Protein 5.7 mg/dL (<1.0); Calcium 7.4 mg/dL (8.4-10.2); Carbon Dioxide 24 mmol/L (22-30); Chloride 94 mmol/L (98-107); Sodium 130 mmol/L (137-145); Total Bilirubin 0.8 mg/dL (0.2-1.3)
[2024-02-26 11:53] LABS: Glucose,Whole Blood 238 mg/dL (70-110)
--- NOTE | 2024-02-26 12:31 | CT ---
EXAMINATION TYPE: CT brain wo con CT DLP: 1213.4 mGycm, Automated exposure control for dose reduction was used. DATE OF EXAM: 02/26/2024 12:24 PM COMPARISON: 02/23/2024. CLINICAL INDICATION:Male, 78 years old with history of septic emboli, AMS, rule out stroke. Hx. septi c emboli TECHNIQUE: Brain: Axial CT images of the brain were obtained with coronal and sagittal reformats created and rev iewed. Contrast used: None. Oral contrast used: None. FINDINGS: Brain: Extra-axial spaces: No abnormal extra-axial fluid collections. Ventricular system: Dilatation in proportion to cerebral atrophy. Cerebral parenchyma: Cerebral atrophy. Prominent perivascular spaces in the right basal ganglia versu s prior injury no change from 02/23/2024. No acute intraparenchymal hemorrhage or mass effect. The gr ay-white junction is well differentiated. Scattered hypoattenuating areas are seen within the white m atter. Cerebellum: Unremarkable. Mass effect: No evidence of midline shift. Intracranial vasculature: Atherosclerotic calcifications of the intracranial vessels. Soft tissues: Normal. Calvarium/osseous structures: No depressed skull fracture. Paranasal sinuses and mastoid air cells: Mild scattered paranasal sinus disease. Visualized orbits: Orbital contents are intact. IMPRESSION: 1. No acute intracranial process. 2. Nonspecific white matter changes, likely secondary to chronic small vessel ischemic disease.
--- NOTE | 2024-02-26 13:46 | P.PN ---
Subjective Progress Note Date: 02/26/24 On today's evaluation of 02/22/2024, seen the patient for a follow-up. The patient is currently undergoing hemodialysis and is resting comfortably in bed while awaiting a BiPAP at a pressure of 10/5 with an FiO2 of 30%. No significant respiratory distress at this point in time. Noted the patient had staphylococcal bacteremia/MSSA and the patient is currently on IV cefazolin. Pulse ox is in the order of 94% while wearing the BiPAP. No labs are available from today. Yesterday's labs were noted. The white cell count at 13.7 with a hemoglobin of 8.1 and a platelet count of 140. The most recent chest x-ray from 02/18/2024 showed cardiomegaly and mild pulm vascular congestion. No evidence of any consolidation or airspace disease. Echocardiogram on 02/16/2024 showed left- ventricular ejection fraction of 40 to 45%, global hypokinesis, moderately decreased LV function, the aortic valve had some mild to moderate para valvular leak otherwise, no other significant valvular abnormalities noted. The patient is otherwise calm and comfortable. His comorbid conditions include end-stage renal disease on hemodialysis 3 times a week and the patient has a malfunctioning AV graft and the patient is status post angioplasty and thrombolysis of the left subclavian vein. Nephrology on the case. Vascular surgery is also on the case. Hemoglobin is stable for now and there is no evidence of any GI bleeding. The patient has been anticoagulated regarding chronic atrial fibrillation. The patient has hyperlipidemia, diabetes mellitus type 2 as comorbid conditions. The patient is post TAVR procedure with some mild to moderate aortic valvular leak. 02/23/2024, the patient is being seen for a follow-up. This patient is 78 and the patient has MSSA septicemia currently on IV cefazolin. The most recent follow-up blood cultures from [facility] on 02/20/2024 were negative. The patient remains hemodynamically stable. On today's blood work, there is a white cell count of 15.5 with a hemoglobin of 8 and a platelet count of 211. The sodium level is 132, BUN 77 creatinine 5.38 and a potassium level is at 3.9. INR is currently at 3.9. Patient remains on IV cefazolin. The patient is on Levemir insulin 24 units at bedtime along with NovoLog 2 units with meals + scale coverage. Remains on Demadex 40 mg p.o. daily. Remains on Flomax. The CAT scan of the brain was done today and showed no acute abnormalities and there was some nonspecific white matter changes likely secondary to chronic small vessel ischemic disease. At the same time, a chest x-ray was repeated today and shows essentially stable findings with some calcification along the pleural surface and the right and mild pulm vessel congestion without any significant interval changes compared to the earlier chest x-ray. Respiratory status is stable. The patient is currently off the BiPAP initially at 2 L and subsequently out of her oxygen with a pulse ox of 96%. The patient is also being seen by infectious disease. TREY has been ordered. The patient is being seen by nephrology. Regarding his end-stage renal disease and the patient is undergoing hemodialysis MWF. No problems with dialysis and his last dialysis session was done yesterday. No reported shortness of breath at this point in time. His MSSA bacteremia is still being investigated and the patient is being considered for a TREY. On today's evaluation of 02/24/2024, the patient is essentially unchanged. Calm and comfortable, resting comfortably in bed. No significant respiratory distress. He remains on oxygen on room air with a pulse ox of 95%. No cough. No sputum production. No chest tightness. No wheezing. Obese, 17.8 with a hemoglobin of 8 and a platelet count of 236. BUN is 100 and the creatinine is at 7.1 and a sodium levels at 131. The patient has end-stage renal disease and the patient undergoes hemodialysis 3 times a week and he is scheduled to undergo hemodialysis today. Afebrile. Remains on IV cefazolin. Repeated blood culture s from 03/03/2024 on 02/20/2024 were negative. On 02/25/2024, seen the patient for a follow-up. Resting comfortably in bed on room air oxygen. No respiratory distress. Last hemodialysis session was y . No chest pain. No shortness of breath. Hemodynamically stable. White cell count at 17 with a hemoglobin 8.1. INR is at 3.3. BUN 67 with a creatinine of 5.25 and a potassium level of 3.9. Afebrile for now. Repeat blood cultures have been negative thus far. Patient is being seen for a follow-up. Unfortunately, the TREY that was completed today showed evidence of infective endocarditis. The patient had a large vegetation noted over the anterior mitral valve leaflet consistent with diagnosis of infective endocarditis. The patient has a bioprosthetic aortic valve also. Note that he remains quite lethargic. He is awake alert and communicating. Weakness was noted in the left upper and left lower extremity and this has evolved over the past 24 to 48 hours. Septic emboli to the brain was suspected. Based on that, CAT scan of the brain was done and showed no evidence of any acute intracranial process and there was some nonspecific white matter changes likely secondary to chronic small vessel ischemic changes. Antibiotics has been switched to nafcillin. The repeat blood cultures from 02/19/2024 and 02/20/2024 were negative. White cell count is 16.7 with a hemoglobin of 8.4 and a platelet count of 227. INR is at 4.7. BUN is 94 with a creatinine of 7.05 and sodium is at 130 with a potassium level of 5.0. Consultation was placed for cardiothoracic surgery regarding the endocarditis. The patient undergoes hemodialysis 3 times a week. No significant shortness of breath. This morning, he was on room air with a pulse ox of 99%. No hypotension. No cardiac arrhythmias noted. Objective - Vital Signs Vital signs: Vital Signs Temp 98.2 F 02/26/24 09:38 Pulse 74 02/26/24 10:13 Resp 18 02/26/24 10:13 BP 122/58 02/26/24 09:38 Pulse Ox 100 02/26/24 09:38 FiO2 30 02/26/24 04:47 Intake & Output 02/25/24 02/26/24 02/26/24 18:59 06:59 18:59 Intake Total 200 Output Total 0 Balance 200 Intake: Intake, IV Titration 200 Amount Nafcillin 2 gm In 200 Dextrose 5% in Water 100 ml @ 50 mls/hr IVPB Q4HR [facility] Rx#:[id number] Output: Stool 0 Other: Voiding Method External Catheter External Catheter External Catheter # Voids 1 - Exam No acute distress, oriented 3. The patient is currently on room air oxygen. head exam was generally normal. There was no scleral icterus or corneal arcus. Mucous membranes were moist. HEENT examination is grossly unremarkable. Mucous membranes are moist. No oral lesions. Neck supple. Full range of motion. No adenopathy thyromegaly or neck vein distention. Cardiovascular examination reveals regular rhythm rate. S1-S2 normal. Harsh murmur could be appreciated over the left lateral sternal border and apex along with a gallop rhythm. Lungs reveal mild bibasilar crackles. No wheezes or rhonchi. Breath sounds are equal bilaterally. Abdomen soft bowel sounds are heard. No masses or tenderness. Extremities are intact. No cyanosis clubbing or edema. Skin is without rash or lesion. Neurologic examination reveals motor weakness on the left upper and left lower extremity. The patient has profound generalized global weakness. There is obvious asymmetry in the motor function with weakness in the left lower extremity and left upper extremity on today's examination. No Babinski. No clonus. No cranial nerve deficits. - Labs CBC & Chem 7: 02/26/24 08:34 02/26/24 08:34 Labs: Abnormal Lab Results - Last 24 Hours (Table) 02/25/24 02/25/24 02/25/24 Range/Units 09:59 09:59 09:59 WBC 17.1 H (3.8-10.6) k/uL RBC 2.57 L (4.30-5.90) m/uL Hgb 8.1 L (13.0-17.5) gm/dL Hct 24.3 L (39.0-53.0) % Neutrophils # 14.9 H (1.3-7.7) k/uL Lymphocytes # 0.9 L (1.0-4.8) k/uL PT 32.2 H (10.0-12.5) sec INR 3.3 H (<1.2) Sodium 131 L (137-145) mmol/L Chloride 96 L (98-107) mmol/L BUN 67 H (9-20) mg/dL Creatinine 5.25 H (0.66-1.25) mg/dL Glucose 102 H (74-99) mg/dL POC Glucose (mg/dL) (70-110) mg/dL Calcium 7.7 L (8.4-10.2) mg/dL Vitamin B12 1552.0 H (200.0-944.0) pg/mL 02/25/24 02/25/24 02/25/24 Range/Units 11:21 16:29 20:15 WBC (3.8-10.6) k/uL RBC (4.30-5.90) m/uL Hgb (13.0-17.5) gm/dL Hct (39.0-53.0) % Neutrophils # (1.3-7.7) k/uL Lymphocytes # (1.0-4.8) k/uL PT (10.0-12.5) sec INR (<1.2) Sodium (137-145) mmol/L Chloride (98-107) mmol/L BUN (9-20) mg/dL Creatinine (0.66-1.25) mg/dL Glucose (74-99) mg/dL POC Glucose (mg/dL) 116 H 207 H 261 H (70-110) mg/dL Calcium (8.4-10.2) mg/dL Vitamin B12 (200.0-944.0) pg/mL 02/26/24 02/26/24 02/26/24 Range/Units 06:10 08:34 08:34 WBC 16.7 H (3.8-10.6) k/uL RBC 2.74 L (4.30-5.90) m/uL Hgb 8.4 L (13.0-17.5) gm/dL Hct 26.3 L (39.0-53.0) % Neutrophils # 14.3 H (1.3-7.7) k/uL Lymphocytes # (1.0-4.8) k/uL PT 45.6 H (10.0-12.5) sec INR 4.7 H (<1.2) Sodium (137-145) mmol/L Chloride (98-107) mmol/L BUN (9-20) mg/dL Creatinine (0.66-1.25) mg/dL Glucose (74-99) mg/dL POC Glucose (mg/dL) 188 H (70-110) mg/dL Calcium (8.4-10.2) mg/dL Vitamin B12 (200.0-944.0) pg/mL Microbiology - Last 24 Hours (Table) 02/20/24 08:20 Blood Culture - Final Blood Assessment and Plan Plan: Acute hypoxemic respiratory failure, likely secondary to a combination of fluid overload and acute systolic CHF exacerbation. Currently on room air oxygen and clinically improved End-stage renal disease, receiving hemodialysis on a Thursday, Thursday, Thursday schedule. The patient apparently had a nonfunctioning AV fistula, and, the patient was to undergo a left upper extremity fistulogram, with ultrasound- guided access, PTBA, and thrombolysis. Subsequent to the graft working. The hemodialysis is undergoing periodic hemodialysis under the care of nephrology. Atrial fibrillation with rapid ventricular response, rate is under adequate control for now Staph aureus sepsis and the patient presented with bacteremia and sepsis, secondary to methicillin sensitive Staphylococcus aureus. The patient remains on IV nafcillin. No indication of any endocarditis based on the transthoracic echocardiogram. Infective endocarditis with large vegetation involving the anterior leaflet of the mitral valve. Please refer to the results of the TREY. Follow-up blood cultures from 02/19/2024 and 02/20/2024 are negative the patient is currently on IV nafcillin. Left sided weakness, rule out septic emboli to the brain. Rule out CVA. Patient had a CAT scan of the brain that showed no acute abnormalities. History of TAVR with aortic valve replacement with mild to moderate aortic valvular leak Hypotension and shock, recovered and the patient is hemodynamically stable Acute febrile illness, currently afebrile Altered mental status, possibly explained by acute metabolic encephalopathy and sepsis, improving Acute leukocytosis, secondary to above Thrombocytopenia, chronic Anemia of chronic disease, secondary to end-stage renal disease. Elevated troponins, suspect supply/demand mismatch. History of TAVR. History of hyperlipidemia. Obesity, with a BMI of 33.5 kg/m. Obstructive sleep apnea, with home BiPAP device. Former tobacco smoker. Plan: Patient is currently on room air oxygen. May need O2 should there be any oxygen desaturation. Most recent chest x-ray shows stable findings without any acute abnormalities. continue IV nafcillin and infectious disease on the case. Regarding endocarditis, cardiothoracic surgery consultation will be also placed. Patient is post TAVR. Noted to follow-up blood cultures have been negative thus far. Hemodynamically stable Monitor motor function on the left side of the body. Hemodialysis per nephrology, last hemodialysis session was done on 02/24/2024 Follow-up blood cultures are negative Prognosis poor based on above-mentioned findings. May need a neurology consultation and possibly an MRI of the brain Overall condition is stable and will continue to follow.
--- NOTE | 2024-02-26 15:06 | P.PN ---
Subjective Progress Note Date: 02/26/24 Hospital Course: Patient is a 78-year-old male with with known diabetes, atrial fibrillation anticoagulated with Coumadin, prior aortic valve replacement, dyslipidemia, end- stage renal disease on hemodialysis Thursday/Thursday/Thursday, and BPH who presented to the emergency department due to confusion and weakness. He had previously been to [facility] where he was noted to have a fever and elevated heart rate he was then discharged from the emergency department. When he went to go to dialysis they terminated after 1 hour due to a fever. On arrival to the emergency department he was noted to be febrile to 104.1 with a heart rate of 140. Initial laboratory analysis was remarkable for white blood cell count 19.4, platelets 131, lactic acid 2.6, troponin 0.12, and renal function consistent with his known dialysis. Influenza A/B/RSV/COVID-19 testing was negative. Initial chest x-ray demonstrated pulmonary vascular congestion. Patient was admitted for sepsis of unknown etiology and A-fib with RVR. He was to started on vancomycin and cefepime as well as a Cardizem drip. Critical care and cardiology were consulted. Echocardiogram was performed which demonstrated ejection fraction of 40 to 45% with mild to moderate perivalvular leak of his aortic valve replacement. Vascular surgery was consulted as his dialysis access is not working. And on 02/15 he underwent left upper extremity fistulogram with transluminal ballooning and thrombolysis at proximal aspect of graft. He then underwent hemodialysis and became slightly hypotensive requiring initiation of norepinephrine. He was subsequently transferred to the ICU. He had melanic stools. His hemoglobin stabilized and he had a recent outpatient colonoscopy without active bleeding. Blood cultures came back positive for M SSA. Currently on cefazolin. Patient does have a history of bioprosthetic aortic valve, TREY is pending. There was concern for possible aspiration. Speech therapy was consulted. 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 This can be advanced once mentation improves. Due to worsening mentation, CT head was ordered which was negative for any acute process. Mentation improved. Subjective: Patient seen and examined at bedside. COntinues to be encephalopathic. Left sided deficits are present Vitals Signs Reviewed. General: Nontoxic, no distress, appears at stated age Derm: Warm, dry Head: Atraumatic, normocephalic, symmetric Eyes: EOMI, no lid lag, anicteric sclera Mouth: No lip lesion, mucus membranes moist Cardiovascular: S1S2 reg, no murmur Lungs: CTA bilateral, no rhonchi, no rales, no accessory muscle use Abdominal: Soft, nontender to palpation, no guarding, no appreciable organomegaly Ext: No gross muscle atrophy, trace peripheral edema, no contractures Neuro: CN II-XI grossly intact, left motor weakness > right motor weakness Psych: Alert, oriented x 3, appropriate affect Data Reviewed Today: Pertinent Labs: WBC 17.1, hemoglobin 8.1, INR 3.3, creatinine 5.25, sodium 131, blood glucose range between 10 2-1 70, magnesium 2.1 Imaging: No acute imaging Assessment and Plan: MSSA bacteremia with sepsis Infective Endocarditis of the Mitral Valve -Abx: Nafcillin 2 g every 4 hours -Patient's last cultures done on 02/17/2024 are positive -Blood cultures from 02/19/2024 are negative to date -Infectious disease following, -TREY reviewed: large free floating vegetation of the mitral valve anterior leaflet -cardiology consult appreciated -CT surgery consulted End-stage renal disease on hemodialysis Thursday/Thursday/Thursday Malfunction AV graft- s/p angioplasty/thrombolysis of left subclavian vein -Nephrology note reviewed, continue PhosLo with meals, and torsemide 40 mg daily - Vascular now signed off Acute metabolic encephalopathy, resolved -CT head negative for any acute process. Repeat on 02/25 also negative -MR brain ordered -Possible hypoactive delirium in the setting of acute illness -TSH normal, B12 level pending -Delirium precautions Melena, possible lower GI bleed resolved Normocytic anemia, probable acute blood loss with chronic renal disease and dialysis -Hemoglobin currently stable - GI was previously consulted, continue with Protonix for GI prophylaxis, diet as tolerated, recent colonoscopy with no active bleeding but positive occult stool. No plans for repeat endoscopic evaluation. - no indication for transfusion -Patient is on Coumadin pharmacy to dose, currently supratherapeutic Acute exacerbation of systolic congestive heart failure with ejection fraction 40 to 45% Atrial fibrillation with rapid ventricular response anticoagulated with coumadin Supratherapeutic INR Type II non-STEMI Dyslipidemia History of TAVR -Cardiology following, continue on Coumadin, pharmacy to dose -Lipitor 10 mg at night -Metoprolol 25 mg oral 3 times daily Thrombocytopenia, resolved Diabetes mellitus type 2 with hyperglycemia -At home patient takes Lantus 45 units at night and Alogliptin -A1c 8.8 -Continue Levemir 24 units at night, fixed dose NovoLog 2 units with each meal and continue with sliding scale insulin, monitor for hypoglycemia DVT prophylaxis: Coumadin Anticipated discharge date: Pending clinical course Anticipated discharge place: Pending clinical course Objective - Vital Signs Vital signs: Vital Signs Temp 98.2 F 02/26/24 09:38 Pulse 80 02/26/24 14:37 Resp 18 02/26/24 14:37 BP 144/54 02/26/24 12:14 Pulse Ox 99 02/26/24 12:14 FiO2 30 02/26/24 04:47 Intake & Output 02/25/24 02/26/24 02/26/24 18:59 06:59 18:59 Intake Total 200 120 Output Total 0 Balance 200 120 Weight 105 kg Intake: Intake, IV Titration 200 Amount Nafcillin 2 gm In 200 Dextrose 5% in Water 100 ml @ 50 mls/hr IVPB Q4HR [facility] Rx#:[id number] Oral 120 Output: Stool 0 Other: Voiding Method External Catheter External Catheter External Catheter # Voids 1 0 - Labs CBC & Chem 7: 02/26/24 08:34 02/26/24 08:34 Labs: Abnormal Lab Results - Last 24 Hours (Table) 02/25/24 02/25/24 02/25/24 Range/Units 09:59 16:29 20:15 WBC (3.8-10.6) k/uL RBC (4.30-5.90) m/uL Hgb (13.0-17.5) gm/dL Hct (39.0-53.0) % Neutrophils # (1.3-7.7) k/uL PT (10.0-12.5) sec INR (<1.2) Sodium (137-145) mmol/L Chloride (98-107) mmol/L BUN (9-20) mg/dL Creatinine (0.66-1.25) mg/dL Glucose (74-99) mg/dL POC Glucose (mg/dL) 207 H 261 H (70-110) mg/dL Calcium (8.4-10.2) mg/dL Phosphorus (2.5-4.5) mg/dL C-Reactive Protein (<1.0) mg/dL Total Protein (6.3-8.2) g/dL Albumin (3.5-5.0) g/dL Vitamin B12 1552.0 H (200.0-944.0) pg/mL 02/26/24 02/26/24 02/26/24 Range/Units 06:10 08:34 08:34 WBC 16.7 H (3.8-10.6) k/uL RBC 2.74 L (4.30-5.90) m/uL Hgb 8.4 L (13.0-17.5) gm/dL Hct 26.3 L (39.0-53.0) % Neutrophils # 14.3 H (1.3-7.7) k/uL PT 45.6 H (10.0-12.5) sec INR 4.7 H (<1.2) Sodium (137-145) mmol/L Chloride (98-107) mmol/L BUN (9-20) mg/dL Creatinine (0.66-1.25) mg/dL Glucose (74-99) mg/dL POC Glucose (mg/dL) 188 H (70-110) mg/dL Calcium (8.4-10.2) mg/dL Phosphorus (2.5-4.5) mg/dL C-Reactive Protein (<1.0) mg/dL Total Protein (6.3-8.2) g/dL Albumin (3.5-5.0) g/dL Vitamin B12 (200.0-944.0) pg/mL 02/26/24 02/26/24 02/26/24 Range/Units 08:34 08:34 11:52 WBC (3.8-10.6) k/uL RBC (4.30-5.90) m/uL Hgb (13.0-17.5) gm/dL Hct (39.0-53.0) % Neutrophils # (1.3-7.7) k/uL PT (10.0-12.5) sec INR (<1.2) Sodium 130 L (137-145) mmol/L Chloride 94 L (98-107) mmol/L BUN 94 H (9-20) mg/dL Creatinine 7.05 H* (0.66-1.25) mg/dL Glucose 152 H (74-99) mg/dL POC Glucose (mg/dL) 238 H (70-110) mg/dL Calcium 7.4 L (8.4-10.2) mg/dL Phosphorus 9.5 H* (2.5-4.5) mg/dL C-Reactive Protein 5.7 H (<1.0) mg/dL Total Protein 5.7 L (6.3-8.2) g/dL Albumin 2.6 L (3.5-5.0) g/dL Vitamin B12 (200.0-944.0) pg/mL Microbiology - Last 24 Hours (Table) 02/20/24 08:20 Blood Culture - Final Blood
--- NOTE | 2024-02-26 15:11 | P.GSCN ---
History of Present Illness Consult date: 02/26/24 Reason for Consult: Mitral valve vegetation seen on transesophageal echocardiogram Requesting physician: Libby Schneider History of present illness: This is a 78-year-old gentleman who follows on an outpatient basis for his primary care with the [facility] and [place], he also follows with a eeo officer out of [facility]. He has a past medical history significant for atrial fibrillation on Coumadin for anticoagulation, hypertension, hyperlipidemia, insulin-dependent diabetes mellitus type 2, chronic obstructive pulmonary disease, history of severe aortic valve stenosis status post TAVR valve replacement in July 2023 at [facility], obstructive sleep apnea with home CPAP use, chronic kidney disease on hemodialysis Thursday, Wednesdays and Fridays, anemia of chronic disease, obesity with a BMI of 32.2 kg/m and remote history of nicotine dependence. On February 15, 2024 the patient had slipped out of bed and could not get up on his own accord, and subsequently EMS was called and the patient presented to [facility] for further evaluation and treatment recommendations. According to the patient's he had a fever of 102 F at that time and was subsequently released from [facility] that day. The patient presented to hemodialysis and was found to have a temperature of 104 F and was subsequently transferred to [facility] for further evaluation and treatment recommendations. The patient was also found to have altered mental status with episodes of confusion. The patient denies any recent chills, nausea, vomiting, headache, hematemesis, hemoptysis, chest pain, chest pressure, shortness of breath, palpitations, presyncope or syncope. On admission February 15, 2024 his initial labs showed a WBC count of 19.4, hemoglobin 11.3, hematocrit 34.0, platelets 131, PT 21.7, INR 2.2, PTT 41.5, sodium 137, potassium 4.0, chloride 97, BUN 76, creatinine 3.74, glucose 197, plasma lactic acid venous 2.6, and troponin 0.171. He was also tested for influenza type A, influenza type B, RSV and COVID-19 which all showed not detected. His Tmax temperature was 104.1 F. Blood cultures were drawn which showed Staphylococcus auris molecular ID and he was started on IV antibiotic treatments. A twelve-lead EKG was completed which demonstrated atrial fibrillation with rapid ventricular response, a left bundle branch block and a heart rate of 138 bpm. A chest x-ray was completed which showed cardiomegaly, pulmonary vascular congestion and bilateral pleural effusions. On February 16, 2024 the patient underwent a transthoracic 2D echocardiogram which demonstrated a left ventricular ejection fraction estimated at 40 to 45%, global hypokinesis, mild mitral valve regurgitation, a TAVR valve without stenosis with a peak velocity of 1.46 m/s, a peak gradient of 8.6 mmHg, a mean gradient of 5.1 mmHg. An estimated aortic valve area of 1.5 cm, mild to moderate paravalvular aortic valve regurgitation, mild tricuspid valve regurgitation, trace pulmonic valve regurgitation no pericardial effusion and a normal size aortic root and proximal ascending aorta. The patient's most recent blood cultures drawn on February 20, 2024 shows a final report of no growth after 5 days. The patient's reports he has been slow to respond with episodes of confusion and on February 23, 2024 the patient underwent a CT scan of his brain without contrast which showed no acute intracranial process. The patient also underwent a CT scan of the brain today February 26, 2024 without contrast to rule out septic emboli and stroke which demonstrated no acute intracranial process and nonspecific white matter changes, likely secondary to chronic small vessel ischemic disease. He is being followed by infectious disease who recommended a transesophageal echocardiogram which was completed today February 26, [address] Diaz from cardiology. The transesophageal echocardiogram revealed a large vegetation noted over the anterior mitral leaflet consistent with a diagnosis of infective endocarditis, mild to moderate mitral valve regurgitation, mild tricuspid valve regurgitation, a bioprosthetic valve in the aortic position with mild aortic valve regurgitation, and his left ventricle to be normal in size and systolic function. Subsequently, due to the findings of a large vegetation on his anterior mitral leaflet a consult was placed to Dr. Nathaniel Terrazas from cardiothoracic surgery for further evaluation and treatment recommendations. The patient's history was obtained from the patient who was alert and oriented x 3 but slow to respond and also from his over the phone. Review of Systems A review of systems was completed and was negative except as mentioned in the HPI. Past Medical History Past Medical History: Atrial Fibrillation, Atrial Flutter, COPD, Diabetes Mellitus, Dialysis, Hyperlipidemia, Hypertension, Renal Disease, Sleep Apnea/CPAP/BIPAP Additional Past Medical History / Comment(s): MWF DIALYSIS , uses cpap ,dialysis graft in lft arm, history of severe aortic valve stenosis status post TAVR July 2023 History of Any Multi-Drug Resistant Organisms: None Reported Past Surgical History: Cardiac Valve Replacement (TAVR valve completed at [facility] July 2023), Tonsillectomy Additional Past Surgical History / Comment(s): Left arm graft for dialysis Past Anesthesia/Blood Transfusion Reactions: No Reported Reaction Smoking Status: Former smoker Past Alcohol Use History: Rare Past Drug Use History: None Reported - Past Family History Father Family Medical History: Dementia, Pneumonia Brother(s) Family Medical History: Diabetes Mellitus, Sleep Apnea/CPAP/BIPAP Additional Family Medical History / Comment(s): Parkinson's Dis. Mother Family Medical History: Dementia Medications and Allergies Home Medications Medication Instructions Recorded Confirmed Type Alogliptin Benzoate [Alogliptin] 6.25 mg PO HS 11/20/23 02/15/24 History Insulin Glargine,Hum.rec.anlog 45 units SQ HS 11/20/23 02/15/24 History [Lantus Solostar Pen] Multivitamins, Thera [Multivitamin 1 tab PO DAILY 11/20/23 02/15/24 History (formulary)] Lyons-3/Dha/Epa/Fish Oil [Fish Oil 1,000 mg PO DAILY 11/20/23 02/15/24 History 1,000 mg Softgel] Tamsulosin HCl [Flomax] 0.4 mg PO HS 11/20/23 02/15/24 History Warfarin [Coumadin] 2.5 mg PO DIRECTED 11/20/23 02/15/24 History diphenhydrAMINE HCL [Benadryl] 25 mg PO HS 11/20/23 02/15/24 History Lovastatin [Mevacor] 10 mg PO HS 02/15/24 02/15/24 History Allergies Allergy/AdvReac Type Severity Reaction Status Date / Time No Known Allergies Allergy Verified 02/15/24 16:59 Surgical - Exam Vital Signs Temp Pulse Resp BP Pulse Ox 104.1 F H 140 H 16 196/98 97 02/15/24 13:48 02/15/24 13:48 02/15/24 13:48 02/15/24 13:48 02/15/24 13:48 - General well developed, well nourished, no distress, no pain, chronically ill, obese - Eyes PERRL, normal ocular movement, no pale, no icteric - ENT normal pinna, normal nares, normal mucosa, no hearing loss, no congestion - Neck Neck is supple, no lymphadenopathy. no masses, no bruits, trachea midline, no venous distension - Respiratory Lung sounds essentially clear throughout. No wheezes, rhonchi or crackles. Oxygen saturations 99% on 2 L nasal cannula. Respirations are symmetrical and nonlabored. - Cardiovascular Irregular rhythm and an controlled rate. S1 and S2 present, negative for S3, or gallop. Soft systolic murmur heard best to the left sternal border. - Abdomen Abdomen soft, nontender and nondistended. Active bowel sounds present all 4 abdominal quadrants. No guarding or rigidity. No organomegaly appreciated. - Genitourinary Deferred. - Rectum Deferred - Integumentary Skin is warm and dry. No clubbing or cyanosis is present. no rash, no growths, no abnormal pigmentation - Neurologic Motor weakness to the left upper and lower extremity with generalized global weakness left greater than right. - Musculoskeletal Motor weakness to the left upper and lower extremity with generalized global weakness left greater than right. - Psychiatric Patient is alert and oriented x 3, but slow to give responses. oriented to time, oriented to person, oriented to place, no speech is normal, memory intact Results - Labs 03/02/24 12:05 03/01/24 07:57 Abnormal Lab Results - Last 24 Hours (Table) 02/25/24 02/25/24 02/25/24 Range/Units 09:59 16:29 20:15 WBC (3.8-10.6) k/uL RBC (4.30-5.90) m/uL Hgb (13.0-17.5) gm/dL Hct (39.0-53.0) % Neutrophils # (1.3-7.7) k/uL PT (10.0-12.5) sec INR (<1.2) Sodium (137-145) mmol/L Chloride (98-107) mmol/L BUN (9-20) mg/dL Creatinine (0.66-1.25) mg/dL Glucose (74-99) mg/dL POC Glucose (mg/dL) 207 H 261 H (70-110) mg/dL Calcium (8.4-10.2) mg/dL Phosphorus (2.5-4.5) mg/dL C-Reactive Protein (<1.0) mg/dL Total Protein (6.3-8.2) g/dL Albumin (3.5-5.0) g/dL Vitamin B12 1552.0 H (200.0-944.0) pg/mL 02/26/24 02/26/24 02/26/24 Range/Units 06:10 08:34 08:34 WBC 16.7 H (3.8-10.6) k/uL RBC 2.74 L (4.30-5.90) m/uL Hgb 8.4 L (13.0-17.5) gm/dL Hct 26.3 L (39.0-53.0) % Neutrophils # 14.3 H (1.3-7.7) k/uL PT 45.6 H (10.0-12.5) sec INR 4.7 H (<1.2) Sodium (137-145) mmol/L Chloride (98-107) mmol/L BUN (9-20) mg/dL Creatinine (0.66-1.25) mg/dL Glucose (74-99) mg/dL POC Glucose (mg/dL) 188 H (70-110) mg/dL Calcium (8.4-10.2) mg/dL Phosphorus (2.5-4.5) mg/dL C-Reactive Protein (<1.0) mg/dL Total Protein (6.3-8.2) g/dL Albumin (3.5-5.0) g/dL Vitamin B12 (200.0-944.0) pg/mL 02/26/24 02/26/24 02/26/24 Range/Units 08:34 08:34 11:52 WBC (3.8-10.6) k/uL RBC (4.30-5.90) m/uL Hgb (13.0-17.5) gm/dL Hct (39.0-53.0) % Neutrophils # (1.3-7.7) k/uL PT (10.0-12.5) sec INR (<1.2) Sodium 130 L (137-145) mmol/L Chloride 94 L (98-107) mmol/L BUN 94 H (9-20) mg/dL Creatinine 7.05 H* (0.66-1.25) mg/dL Glucose 152 H (74-99) mg/dL POC Glucose (mg/dL) 238 H (70-110) mg/dL Calcium 7.4 L (8.4-10.2) mg/dL Phosphorus 9.5 H* (2.5-4.5) mg/dL C-Reactive Protein 5.7 H (<1.0) mg/dL Total Protein 5.7 L (6.3-8.2) g/dL Albumin 2.6 L (3.5-5.0) g/dL Vitamin B12 (200.0-944.0) pg/mL Microbiology - Last 24 Hours (Table) 02/20/24 08:20 Blood Culture - Final Blood Diabetes panel 02/26/24 Range/Units 08:34 Sodium 130 L (137-145) mmol/L Potassium 5.0 (3.5-5.1) mmol/L Chloride 94 L (98-107) mmol/L Carbon Dioxide 24 (22-30) mmol/L BUN 94 H (9-20) mg/dL Creatinine 7.05 H* (0.66-1.25) mg/dL Glucose 152 H (74-99) mg/dL Calcium 7.4 L (8.4-10.2) mg/dL AST 43 (17-59) U/L ALT 12 (4-49) U/L Alkaline Phosphatase 94 (38-126) U/L Total Protein 5.7 L (6.3-8.2) g/dL Albumin 2.6 L (3.5-5.0) g/dL Calcium panel 02/26/24 02/26/24 Range/Units 08:34 08:34 Calcium 7.4 L (8.4-10.2) mg/dL Phosphorus 9.5 H* (2.5-4.5) mg/dL Albumin 2.6 L (3.5-5.0) g/dL Pituitary panel 02/26/24 Range/Units 08:34 Sodium 130 L (137-145) mmol/L Potassium 5.0 (3.5-5.1) mmol/L Chloride 94 L (98-107) mmol/L Carbon Dioxide 24 (22-30) mmol/L BUN 94 H (9-20) mg/dL Creatinine 7.05 H* (0.66-1.25) mg/dL Glucose 152 H (74-99) mg/dL Calcium 7.4 L (8.4-10.2) mg/dL Adrenal panel 02/26/24 Range/Units 08:34 Sodium 130 L (137-145) mmol/L Potassium 5.0 (3.5-5.1) mmol/L Chloride 94 L (98-107) mmol/L Carbon Dioxide 24 (22-30) mmol/L BUN 94 H (9-20) mg/dL Creatinine 7.05 H* (0.66-1.25) mg/dL Glucose 152 H (74-99) mg/dL Calcium 7.4 L (8.4-10.2) mg/dL Total Bilirubin 0.8 (0.2-1.3) mg/dL AST 43 (17-59) U/L ALT 12 (4-49) U/L Alkaline Phosphatase 94 (38-126) U/L Total Protein 5.7 L (6.3-8.2) g/dL Albumin 2.6 L (3.5-5.0) g/dL - Imaging Additional studies: Transthoracic 2D echocardiogram report reviewed. Assessment and Plan Assessment: Infective endocarditis, large vegetation attached to the anterior mitral leaflet that is freely floating [id number] in the atria per transesophageal echocardiogram with mild to moderate mitral valve regurgitation Staphylococcus aureus sepsis, bacteremia with large vegetation found on his anterior leaflet of his mitral valve per transesophageal echocardiogram, follow- up blood cultures on Feb 19 2024 and February 20, 2024 showed no growth. Left-sided weakness, CT of the brain shows no acute intracranial process History of severe aortic valve stenosis, status post TAVR placement at [facility] in July 2023, transesophageal echocardiogram shows mild aortic valve regurgitation Atrial fibrillation, on Coumadin for anticoagulation Altered mental status Acute leukocytosis, likely secondary to above End-stage renal disease, hemodialysis on Wednesdays and Fridays Anemia of chronic disease History of hypertension History of hyperlipidemia Obesity with a BMI of 33.2 kg/m Obstructive sleep apnea with home BiPAP device COPD Remote history of nicotine dependence Plan: The patient was seen and examined at his bedside on the third floor cardiac stepdown unit. His chart and diagnostics were reviewed. His case was discussed in detail with Dr. Nathaniel Terrazas from cardiothoracic surgery. Transesophageal echocardiogram results were reviewed. No class I indication for surgery at this time, continue to treat with antibiotics managed by infectious disease. Currently on nafcillin IV piggyback. Will need to repeat echocardiogram to follow the vegetation. Hemodialysis recommendations per nephrology. Medical management other comorbidities per primary care service, cardiology service, pulmonary critical care service, infectious disease service and nephrology services. More recommendations to follow based on patient's clinical course. Thank you Dr. Schneider for this consult and we look forward to working with you in the care of this patient. I have personally seen and examined the patient, performed the documentation and the assessment and plan as written. Number of minutes spent on the visit: 30. ALLYSON Stock Patient seen and examined. History reviewed as well as echocardiography. End- stage renal disease status post TAVR procedure at [facility] July 2023 who at this point has evidence of a vegetation on the anterior leaflet of the mitral valve with blood culture growing MSSA. He has an AV graft in the left upper extremity for hemodialysis. MRI of the brain showed evidence of small septic embolic events. Initial focus should try to achieve negative blood culture. This case could represent an infection of the TAVR valve with extension to that she leaflet of the mitral valve. Should the culture remain +1 has to look for other source of continued seeding whether it is the left upper extremity AV graft or intra- abdominal abscesses. Patient would certainly be a very high risk candidate for eventual surgery should he meet class I indication. Nathaniel Terrazas MD
--- NOTE | 2024-02-26 15:28 | P.PN ---
Subjective Progress Note Date: 02/26/24 Principal diagnosis: Reason for follow-up with MSSA bacteremia Patient is a 78-year-old male with a past medical his significant for diabetes mellitus hypertension hyperlipidemia atrial fibrillation history of end-stage renal disease on dialysis through left arm AV graft patient has been brought into the hospital for fever weakness and did have bacteremia.Patient did have a TREY completed on 02/26/2024 with evidence of a large vegetation on the anterior mitral leaflet there was no mention of any vegetation on the bioprosthetic aortic valve. On today's evaluation that is 02/26/2024,the patient denies any fever or any chills, patient is breathing comfortably on room air, the patient denies chest pain shortness of breath and no significant cough, patient denies abdominal pain, no nausea vomiting or diarrhea. Patient white count slightly up to 16.7, creatinine 7.05 blood culture repeat so far negative Objective - Vital Signs Vital signs: Vital Signs Temp 98.2 F 02/26/24 09:38 Pulse 80 02/26/24 12:14 Resp 18 02/26/24 12:14 BP 144/54 02/26/24 12:14 Pulse Ox 99 02/26/24 12:14 FiO2 30 02/26/24 04:47 Intake & Output 02/25/24 02/26/24 02/26/24 18:59 06:59 18:59 Intake Total 200 120 Output Total 0 Balance 200 120 Weight 105 kg Intake: Intake, IV Titration 200 Amount Nafcillin 2 gm In 200 Dextrose 5% in Water 100 ml @ 50 mls/hr IVPB Q4HR [facility] Rx#:[id number] Oral 120 Output: Stool 0 Other: Voiding Method External Catheter External Catheter External Catheter # Voids 1 0 - Exam GENERAL DESCRIPTION: An elderly male up in the chair in no distress RESPIRATORY SYSTEM: Unlabored breathing , decreased breath sounds at bases HEART: S1 S2 regular rate and rhythm , ABDOMEN: Soft , no tenderness EXTREMITIES: No edema feet - Labs CBC & Chem 7: 02/26/24 08:34 02/26/24 08:34 Labs: Abnormal Lab Results - Last 24 Hours (Table) 02/25/24 02/25/24 02/25/24 Range/Units 09:59 16:29 20:15 WBC (3.8-10.6) k/uL RBC (4.30-5.90) m/uL Hgb (13.0-17.5) gm/dL Hct (39.0-53.0) % Neutrophils # (1.3-7.7) k/uL PT (10.0-12.5) sec INR (<1.2) Sodium (137-145) mmol/L Chloride (98-107) mmol/L BUN (9-20) mg/dL Creatinine (0.66-1.25) mg/dL Glucose (74-99) mg/dL POC Glucose (mg/dL) 207 H 261 H (70-110) mg/dL Calcium (8.4-10.2) mg/dL Phosphorus (2.5-4.5) mg/dL C-Reactive Protein (<1.0) mg/dL Total Protein (6.3-8.2) g/dL Albumin (3.5-5.0) g/dL Vitamin B12 1552.0 H (200.0-944.0) pg/mL 02/26/24 02/26/24 02/26/24 Range/Units 06:10 08:34 08:34 WBC 16.7 H (3.8-10.6) k/uL RBC 2.74 L (4.30-5.90) m/uL Hgb 8.4 L (13.0-17.5) gm/dL Hct 26.3 L (39.0-53.0) % Neutrophils # 14.3 H (1.3-7.7) k/uL PT 45.6 H (10.0-12.5) sec INR 4.7 H (<1.2) Sodium (137-145) mmol/L Chloride (98-107) mmol/L BUN (9-20) mg/dL Creatinine (0.66-1.25) mg/dL Glucose (74-99) mg/dL POC Glucose (mg/dL) 188 H (70-110) mg/dL Calcium (8.4-10.2) mg/dL Phosphorus (2.5-4.5) mg/dL C-Reactive Protein (<1.0) mg/dL Total Protein (6.3-8.2) g/dL Albumin (3.5-5.0) g/dL Vitamin B12 (200.0-944.0) pg/mL 02/26/24 02/26/24 02/26/24 Range/Units 08:34 08:34 11:52 WBC (3.8-10.6) k/uL RBC (4.30-5.90) m/uL Hgb (13.0-17.5) gm/dL Hct (39.0-53.0) % Neutrophils # (1.3-7.7) k/uL PT (10.0-12.5) sec INR (<1.2) Sodium 130 L (137-145) mmol/L Chloride 94 L (98-107) mmol/L BUN 94 H (9-20) mg/dL Creatinine 7.05 H* (0.66-1.25) mg/dL Glucose 152 H (74-99) mg/dL POC Glucose (mg/dL) 238 H (70-110) mg/dL Calcium 7.4 L (8.4-10.2) mg/dL Phosphorus 9.5 H* (2.5-4.5) mg/dL C-Reactive Protein 5.7 H (<1.0) mg/dL Total Protein 5.7 L (6.3-8.2) g/dL Albumin 2.6 L (3.5-5.0) g/dL Vitamin B12 (200.0-944.0) pg/mL Microbiology - Last 24 Hours (Table) 02/20/24 08:20 Blood Culture - Final Blood Assessment and Plan (1) Leukocytosis Current Visit: Yes Status: Acute Code(s): D72.829 - ELEVATED WHITE BLOOD CELL COUNT, UNSPECIFIED SNOMED Code(s): 542775021 (2) MSSA bacteremia Current Visit: Yes Status: Acute Code(s): R78.81 - BACTEREMIA; B95.61 - METHICILLIN SUSCEP STAPH INFCT CAUSING DIS CLASSD [id number] SNOMED Code(s): 589527916 Plan: 1patient with MSSA bacteremia in this patient who do have a history of renal failure with on hemodialysis with a left arm fistula site with presentation to the hospital with weakness fall and urinary frequency however UA is negative abdominal soft no significant respiratory symptoms or hypoxemia question of possible related to the fistula site which was nonfunctioning and did have angiogram and angioplasty done this admission. 2blood cultures repeated 02/17/2024 came back positive blood culture has been repeated 02/19/2024 as well as 02/20/2024 are so far negative keeping in mind his TAVR procedure, cardiology has been consulted for TREY which was completed 02/26/2024 with evidence of large vegetation on the anterior mitral valve leaflet did not mention any vegetation on the bioprosthetic aortic valve 3-CT surgery has been consulted because of the large vegetation patient will be continued on Naficilin and monitor clinical course closely Dictation was produced using [employer] dictation software. please excuse any grammatical, word or spelling errors. Time with Patient: Less than 30
[2024-02-26 16:38] LABS: Glucose,Whole Blood 194 mg/dL (70-110)
[2024-02-26] MEDS: WARFARIN 0.5 MG TAB PO ONE (17:30)
[2024-02-26 19:54] LABS: Glucose,Whole Blood 134 mg/dL (70-110)
[2024-02-27 06:31] LABS: Glucose,Whole Blood 127 mg/dL (70-110)
[2024-02-27 08:29] LABS: INR 6.6 (<1.2)
--- NOTE | 2024-02-27 09:53 | P.PN ---
Subjective Progress Note Date: 02/27/24 HISTORY OF PRESENT ILLNESS: This is a 78-year-old female with a past medical history significant for end- stage renal disease on hemodialysis, obstructive sleep apnea with CPAP use, hypertension, hyperlipidemia, diabetes, atrial flutter/fibrillation. Patient does not follow with a senior inspector locally. He follows with a physician at [facility]. We have been asked to see the patient in consultation for AF with RVR. Patient examined at the bedside in the ER. Patient was found to be septic and workup is ongoing per primary medicine. Patient was found to be in atrial fibrillation/flutter with RVR. Patient was placed on IV Cardizem which has since been discontinued. His rates are controlled at the time of examination. He is currently undergoing hemodialysis. Patient was placed on IV heparin. His Co umadin has not been resumed. DIAGNOSTICS: - EKG reveals atrial flutter with RVR. Left BBB - Chest xray cardiomegaly, pulmonary vascular congestion and bilateral pleural effusions - Laboratory data: BC 17.4. Hemoglobin 9.8. Platelet count 92. INR 1.9. Sodium 136. Potassium 3.5. BUN 87. Creatinine 4.79. Troponin 0.276 - Current home cardiac medications include Lovastatin 10 mg daily and Coumadin 2.5mg daily 02/18/2024 Patient examined this morning at the bedside. Currently denies chest pain or pressure. He denies shortness of breath. Telemetry reveals sinus mechanism. Patient's Coumadin has been placed on hold secondary to drop in hemoglobin. Hemoglobin this morning is improved at 9.3. Echocardiogram completed revealing ejection fraction 40 to 45%, false tendon seen in LV, mild MR, TAVR valve without stenosis, mild to moderate perivalvular aortic regurgitation, mild tricuspid regurgitation. 02/22 Cardiology signed off this case on [id number] but we have been asked to reassess the p atient for TREY due to bacteremia. Patient has been maintained on IV cefazolin. Patient is currently on BiPAP, blood pressure 132/73, heart rate 63. Repeat blood work reveals WBC 15.5, hemoglobin 8, INR is 3.9. 02/23 Blood pressure 125/66, heart rate 75, pulse ox 95% on room air. Patient is on BiPAP when sleeping or at nighttime. He has been afebrile. His mental status is slow to respond which apparently has been going on for several days. CAT scan of the brain last evening revealed no acute intracranial process. Patient is maintained on hemodialysis per nephrology. Hemoglobin 8, WBC 17.8. INR 3.3. Sodium 131, potassium 4.2, BUN 100 creatinine 7.15. 02/24 Patient will be scheduled for a TREY tomorrow with Dr. Judy Diaz. 02/26 Yesterday, patient underwent TREY with Dr. Judy Diaz which revealed large vegetation on the mitral valve, mild to moderate mitral regurgitation. Tricuspid has mild tricuspid regurgitation. Bioprosthetic valve in aortic position with mild aortic regurgitation. Left atrium mildly enlarged. Right atrium and right ventricle within normal limits. Aortic root does not appear enlarged. No evidence of left to right shunt. A consult was added for cardiothoracic surgery. Patient has been maintained on IV antibiotics managed by Dr. Butler. Blood pressure 130/54, heart rate 78, pulse ox 96% on room air. INR 6.6. Yesterday, during dialysis, patient had episode of atrial flutter 2:1 at 150 bpm. Patient updated re findings on RTEY. ASSESSMENT: Sepsis with MSSA bacteremia secondary to endocarditis Atrial fibrillation with RVR, paroxysmal, on Coumadin Atrial flutter w RVR episode while on HD Left bundle branch block End-stage renal disease on hemodialysis Abnormal troponin, likely secondary to CKD Anemia of chronic disease Hypertension Hyperlipidemia Diabetes Obstructive sleep apnea with CPAP use History of TAVR, July 2023, [facility] PLAN: Continue sepsis treatment per Dr. Butler Continue cardiac medications: Atorvastatin, Lasix, Lopressor, Coumadin-pharmacy dosing Increase Lopressor to 50 mg bid Further recommendations pending patient course Nurse practitioner note has been reviewed by physician. Signing provider agrees with the documented findings, assessment, and plan of care documented by [employer] as a scribe. Objective - Vital Signs Vital signs: Vital Signs Temp 98.5 F 02/27/24 08:14 Pulse 78 02/27/24 08:14 Resp 18 02/27/24 08:14 BP 130/54 02/27/24 08:14 Pulse Ox 96 02/27/24 08:14 FiO2 30 02/27/24 04:12 Intake & Output 02/26/24 02/27/24 02/27/24 18:59 06:59 18:59 Intake Total 120 400 110 Output Total 2400 Balance 120 -2000 110 Weight 105 kg Intake: Oral 120 110 Hemodialysis 400 Output: Stool 0 Hemodialysis 2400 Other: Voiding Method External Catheter Diaper # Voids 0 1 # Bowel Movements 1 1 - Labs CBC & Chem 7: 02/26/24 08:34 02/26/24 08:34 Labs: Abnormal Lab Results - Last 24 Hours (Table) 02/26/24 02/26/24 02/26/24 Range/Units 08:34 08:34 08:34 WBC 16.7 H (3.8-10.6) k/uL RBC 2.74 L (4.30-5.90) m/uL Hgb 8.4 L (13.0-17.5) gm/dL Hct 26.3 L (39.0-53.0) % Neutrophils # 14.3 H (1.3-7.7) k/uL PT 45.6 H (10.0-12.5) sec INR 4.7 H (<1.2) Sodium 130 L (137-145) mmol/L Chloride 94 L (98-107) mmol/L BUN 94 H (9-20) mg/dL Creatinine 7.05 H* (0.66-1.25) mg/dL Glucose 152 H (74-99) mg/dL POC Glucose (mg/dL) (70-110) mg/dL Calcium 7.4 L (8.4-10.2) mg/dL Phosphorus (2.5-4.5) mg/dL C-Reactive Protein 5.7 H (<1.0) mg/dL Total Protein 5.7 L (6.3-8.2) g/dL Albumin 2.6 L (3.5-5.0) g/dL 02/26/24 02/26/24 02/26/24 Range/Units 08:34 11:52 16:36 WBC (3.8-10.6) k/uL RBC (4.30-5.90) m/uL Hgb (13.0-17.5) gm/dL Hct (39.0-53.0) % Neutrophils # (1.3-7.7) k/uL PT (10.0-12.5) sec INR (<1.2) Sodium (137-145) mmol/L Chloride (98-107) mmol/L BUN (9-20) mg/dL Creatinine (0.66-1.25) mg/dL Glucose (74-99) mg/dL POC Glucose (mg/dL) 238 H 194 H (70-110) mg/dL Calcium (8.4-10.2) mg/dL Phosphorus 9.5 H* (2.5-4.5) mg/dL C-Reactive Protein (<1.0) mg/dL Total Protein (6.3-8.2) g/dL Albumin (3.5-5.0) g/dL 02/26/24 02/27/24 Range/Units 19:52 06:25 WBC (3.8-10.6) k/uL RBC (4.30-5.90) m/uL Hgb (13.0-17.5) gm/dL Hct (39.0-53.0) % Neutrophils # (1.3-7.7) k/uL PT (10.0-12.5) sec INR (<1.2) Sodium (137-145) mmol/L Chloride (98-107) mmol/L BUN (9-20) mg/dL Creatinine (0.66-1.25) mg/dL Glucose (74-99) mg/dL POC Glucose (mg/dL) 134 H 127 H (70-110) mg/dL Calcium (8.4-10.2) mg/dL Phosphorus (2.5-4.5) mg/dL C-Reactive Protein (<1.0) mg/dL Total Protein (6.3-8.2) g/dL Albumin (3.5-5.0) g/dL
--- NOTE | 2024-02-27 11:06 | P.PN ---
Subjective Patient is seen in follow-up for end-stage renal disease. He is maintained on hemodialysis on Thursday schedule. No chest pain or shortness of breath. Hemodynamically stable. Tolerated 2 L ultrafiltration yesterday. Vital signs are stable. General: No acute distress. HEENT: Head exam is unremarkable. On room air. LUNGS: No audible rhonchi or wheezes. HEART: Rate and Rhythm are regular. ABDOMEN: Nontender. EXTREMITITES: No edema. Objective - Vital Signs Vital signs: Vital Signs Temp 98.5 F 02/27/24 08:14 Pulse 78 02/27/24 09:45 Resp 18 02/27/24 09:45 BP 130/54 02/27/24 08:14 Pulse Ox 96 02/27/24 08:14 FiO2 30 02/27/24 04:12 Intake & Output 02/26/24 02/27/24 02/27/24 18:59 06:59 18:59 Intake Total 120 400 110 Output Total 2400 Balance 120 -2000 110 Weight 105 kg Intake: Oral 120 110 Hemodialysis 400 Output: Stool 0 Hemodialysis 2400 Other: Voiding Method External Catheter Diaper Diaper # Voids 0 1 # Bowel Movements 1 1 - Labs CBC & Chem 7: 02/26/24 08:34 02/26/24 08:34 Labs: Abnormal Lab Results - Last 24 Hours (Table) 02/26/24 02/26/24 02/26/24 Range/Units 08:34 08:34 11:52 PT (10.0-12.5) sec INR (<1.2) Sodium 130 L (137-145) mmol/L Chloride 94 L (98-107) mmol/L BUN 94 H (9-20) mg/dL Creatinine 7.05 H* (0.66-1.25) mg/dL Glucose 152 H (74-99) mg/dL POC Glucose (mg/dL) 238 H (70-110) mg/dL Calcium 7.4 L (8.4-10.2) mg/dL Phosphorus 9.5 H* (2.5-4.5) mg/dL C-Reactive Protein 5.7 H (<1.0) mg/dL Total Protein 5.7 L (6.3-8.2) g/dL Albumin 2.6 L (3.5-5.0) g/dL 02/26/24 02/26/24 02/27/24 Range/Units 16:36 19:52 06:25 PT (10.0-12.5) sec INR (<1.2) Sodium (137-145) mmol/L Chloride (98-107) mmol/L BUN (9-20) mg/dL Creatinine (0.66-1.25) mg/dL Glucose (74-99) mg/dL POC Glucose (mg/dL) 194 H 134 H 127 H (70-110) mg/dL Calcium (8.4-10.2) mg/dL Phosphorus (2.5-4.5) mg/dL C-Reactive Protein (<1.0) mg/dL Total Protein (6.3-8.2) g/dL Albumin (3.5-5.0) g/dL 02/27/24 Range/Units 07:06 PT 65.0 H (10.0-12.5) sec INR 6.6 H* (<1.2) Sodium (137-145) mmol/L Chloride (98-107) mmol/L BUN (9-20) mg/dL Creatinine (0.66-1.25) mg/dL Glucose (74-99) mg/dL POC Glucose (mg/dL) (70-110) mg/dL Calcium (8.4-10.2) mg/dL Phosphorus (2.5-4.5) mg/dL C-Reactive Protein (<1.0) mg/dL Total Protein (6.3-8.2) g/dL Albumin (3.5-5.0) g/dL Assessment and Plan Plan: Assessment: 1. End-stage renal disease maintained on hemodialysis on Thursday schedule. 2. A-fib with RVR status post Cardizem drip. On Lopressor. 3. Diabetes mellitus. 4. MSSA bacteremia on antibiotics. ID following. TREY showed a large vegetation on the mitral valve. CTS following. No surgical intervention planned at this time. 5. Hyperphosphatemia secondary to chronic kidney disease. Phosphorus level 7.2 dated February 23, 2024. On PhosLo. 6. Anemia of chronic kidney disease. On Aranesp. Plan: Hemodialysis tomorrow. Maintain torsemide. Will notify vascular surgery to assess dialysis access due to clots being obtained.
[2024-02-27 11:12] LABS: Glucose,Whole Blood 221 mg/dL (70-110)
--- NOTE | 2024-02-27 12:05 | P.PN ---
Subjective Progress Note Date: 02/27/24 Hospital Course: Patient is a 78-year-old male with with known diabetes, atrial fibrillation anticoagulated with Coumadin, prior aortic valve replacement, dyslipidemia, end- stage renal disease on hemodialysis Thursday/Thursday/Thursday, and BPH who presented to the emergency department due to confusion and weakness. He had previously been to [facility] where he was noted to have a fever and elevated heart rate he was then discharged from the emergency department. When he went to go to dialysis they terminated after 1 hour due to a fever. On arrival to the emergency department he was noted to be febrile to 104.1 with a heart rate of 140. Initial laboratory analysis was remarkable for white blood cell count 19.4, platelets 131, lactic acid 2.6, troponin 0.12, and renal function consistent with his known dialysis. Influenza A/B/RSV/COVID-19 testing was negative. Initial chest x-ray demonstrated pulmonary vascular congestion. Patient was admitted for sepsis of unknown etiology and A-fib with RVR. He was to started on vancomycin and cefepime as well as a Cardizem drip. Critical care and cardiology were consulted. Echocardiogram was performed which demonstrated ejection fraction of 40 to 45% with mild to moderate perivalvular leak of his aortic valve replacement. Vascular surgery was consulted as his dialysis access is not working. And on 02/15 he underwent left upper extremity fistulogram with transluminal ballooning and thrombolysis at proximal aspect of graft. He then underwent hemodialysis and became slightly hypotensive requiring initiation of norepinephrine. He was subsequently transferred to the ICU. He had melanic stools. His hemoglobin stabilized and he had a recent outpatient colonoscopy without active bleeding. Blood cultures came back positive for M SSA. Currently on cefazolin. Patient does have a history of bioprosthetic aortic valve, TREY is pending. There was concern for possible aspiration. Speech therapy was consulted. 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 This can be advanced once mentation improves. Due to worsening mentation, CT head was ordered which was negative for any acute process. Mentation improved. Subjective: Patient seen and examined at bedside. COntinues to be encephalopathic. Left sided deficits are present Vitals Signs Reviewed. General: Nontoxic, no distress, appears at stated age Derm: Warm, dry Head: Atraumatic, normocephalic, symmetric Eyes: EOMI, no lid lag, anicteric sclera Mouth: No lip lesion, mucus membranes moist Cardiovascular: S1S2 reg, no murmur Lungs: CTA bilateral, no rhonchi, no rales, no accessory muscle use Abdominal: Soft, nontender to palpation, no guarding, no appreciable organomegaly Ext: No gross muscle atrophy, trace peripheral edema, no contractures Neuro: CN II-XI grossly intact, left motor weakness > right motor weakness Psych: Alert, oriented x 3, appropriate affect Data Reviewed Today: Pertinent Labs: WBC 17.1, hemoglobin 8.1, INR 3.3, creatinine 5.25, sodium 131, blood glucose range between 10 2-1 70, magnesium 2.1 Imaging: No acute imaging Assessment and Plan: MSSA bacteremia with sepsis Infective Endocarditis of the Mitral Valve -Abx: Nafcillin 2 g every 4 hours -Patient's last cultures done on 02/17/2024 are positive -Blood cultures from 02/19/2024 are negative to date -Infectious disease following, -TREY reviewed: large free floating vegetation of the mitral valve anterior leaflet -cardiology consult appreciated -CT surgery consulted, no class I indication for surgery at this time End-stage renal disease on hemodialysis Thursday/Thursday/Thursday Malfunction AV graft- s/p angioplasty/thrombolysis of left subclavian vein -Nephrology note reviewed, continue PhosLo with meals, and torsemide 40 mg daily - Vascular now signed off Acute metabolic encephalopathy, resolved -CT head negative for any acute process. Repeat on 02/25 also negative -MR brain ordered, pending -Possible hypoactive delirium in the setting of acute illness -TSH normal, B12 level pending -Delirium precautions Melena, possible lower GI bleed resolved Normocytic anemia, probable acute blood loss with chronic renal disease and dialysis -Hemoglobin currently stable - GI was previously consulted, continue with Protonix for GI prophylaxis, diet as tolerated, recent colonoscopy with no active bleeding but positive occult stool. No plans for repeat endoscopic evaluation. - no indication for transfusion -Patient is on Coumadin pharmacy to dose, currently supratherapeutic Acute exacerbation of systolic congestive heart failure with ejection fraction 40 to 45% Atrial fibrillation with rapid ventricular response anticoagulated with coumadin Supratherapeutic INR Type II non-STEMI Dyslipidemia History of TAVR -Cardiology following, continue on Coumadin, pharmacy to dose -Lipitor 10 mg at night -Metoprolol 25 mg oral 3 times daily Thrombocytopenia, resolved Diabetes mellitus type 2 with hyperglycemia -At home patient takes Lantus 45 units at night and Alogliptin -A1c 8.8 -Continue Levemir 24 units at night, fixed dose NovoLog 2 units with each meal and continue with sliding scale insulin, monitor for hypoglycemia DVT prophylaxis: Coumadin Anticipated discharge date: Pending clinical course Anticipated discharge place: Pending clinical course Objective - Vital Signs Vital signs: Vital Signs Temp 98.5 F 02/27/24 08:14 Pulse 78 02/27/24 09:45 Resp 18 02/27/24 09:45 BP 130/54 02/27/24 08:14 Pulse Ox 96 02/27/24 08:14 FiO2 30 02/27/24 04:12 Intake & Output 02/26/24 02/27/24 02/27/24 18:59 06:59 18:59 Intake Total 120 400 110 Output Total 2400 Balance 120 -2000 110 Weight 105 kg Intake: Oral 120 110 Hemodialysis 400 Output: Stool 0 Hemodialysis 2400 Other: Voiding Method External Catheter Diaper Diaper # Voids 0 1 # Bowel Movements 1 1 - Labs CBC & Chem 7: 02/26/24 08:34 02/26/24 08:34 Labs: Abnormal Lab Results - Last 24 Hours (Table) 02/26/24 02/26/24 02/26/24 Range/Units 08:34 16:36 19:52 PT (10.0-12.5) sec INR (<1.2) POC Glucose (mg/dL) 194 H 134 H (70-110) mg/dL Phosphorus 9.5 H* (2.5-4.5) mg/dL 02/27/24 02/27/24 02/27/24 Range/Units 06:25 07:06 11:11 PT 65.0 H (10.0-12.5) sec INR 6.6 H* (<1.2) POC Glucose (mg/dL) 127 H 221 H (70-110) mg/dL Phosphorus (2.5-4.5) mg/dL
--- NOTE | 2024-02-27 13:12 | MR ---
EXAMINATION TYPE: MR brain wo con DATE OF EXAM: 02/27/2024 COMPARISON: CT brain 02/26/2024 HISTORY: Left sided weakness, evaluate for septic emboli. CONTRAST: Performed utilizing 0 mL intravenous Gadavist gadolinium contrast. TECHNIQUE: Multiplanar, multiecho imaging on a 3.0 Tere magnet is performed through the brain. Stud y is performed within 24 hours of arrival to the hospital. The craniovertebral junction is normal. The pituitary is normal. Diffusion-weighted imaging is performed. There are multiple bilateral punctate peripheral hyperinten sities within the cortex of the bilateral cerebrum, scattered deep white matter and periventricular w perfecto matter, and within scattered peripheral areas within the cerebellum. Findings can be compatible with septic emboli with acute ischemic changes. Multiple periventricular deep white matter scattered hyperintensities are present. Some of these canelo elate with the diffusion imaging findings. Inversion recovery weighted sequences have a closer correl ation with the diffusion imaging abnormalities. Ventricles and sulci are mildly prominent for the patient age. IMPRESSION: 1. Numerous peripheral and deep punctate diffusion hyperintensities correlating with changes on inver john recovery sequences findings can be compatible with acute ischemic changes such as associated wit h septic emboli..
--- NOTE | 2024-02-27 13:40 | P.PN ---
Subjective Progress Note Date: 02/27/24 Principal diagnosis: Reason for follow-up with MSSA bacteremia Patient is a 78-year-old male with a past medical his significant for diabetes mellitus hypertension hyperlipidemia atrial fibrillation history of end-stage renal disease on dialysis through left arm AV graft patient has been brought into the hospital for fever weakness and did have bacteremia.Patient did have a TREY completed on 02/26/2024 with evidence of a large vegetation on the anterior mitral leaflet there was no mention of any vegetation on the bioprosthetic aortic valve. On today's evaluation that is 02/27/2024,the patient remains to be afebrile, patient is on room air not requiring supplemental oxygen and denies any shortness of breath no chest pain or cough.Patient denies having any nausea or vomiting, no abdominal pain and no diarrhea has been reported, no new symptoms. Patient INR is 6.6 no CBC was done today Objective - Vital Signs Vital signs: Vital Signs Temp 98.5 F 02/27/24 04:00 Pulse 80 02/27/24 04:00 Resp 18 02/27/24 04:00 BP 105/65 02/27/24 04:00 Pulse Ox 100 02/27/24 04:00 FiO2 30 02/27/24 04:12 Intake & Output 02/26/24 02/27/24 02/27/24 18:59 06:59 18:59 Intake Total 120 400 Output Total 2400 Balance 120 -2000 Weight 105 kg Intake: Oral 120 Hemodialysis 400 Output: Stool 0 Hemodialysis 2400 Other: Voiding Method External Catheter Diaper # Voids 0 1 # Bowel Movements 1 1 - Exam GENERAL DESCRIPTION: An elderly male lying in bed in no distress RESPIRATORY SYSTEM: Unlabored breathing , decreased breath sounds at bases HEART: S1 S2 regular rate and rhythm , ABDOMEN: Soft , no tenderness Exam completed with help of [employer] - Labs CBC & Chem 7: 02/26/24 08:34 02/26/24 08:34 Labs: Abnormal Lab Results - Last 24 Hours (Table) 02/26/24 02/26/24 02/26/24 Range/Units 08:34 08:34 08:34 WBC 16.7 H (3.8-10.6) k/uL RBC 2.74 L (4.30-5.90) m/uL Hgb 8.4 L (13.0-17.5) gm/dL Hct 26.3 L (39.0-53.0) % Neutrophils # 14.3 H (1.3-7.7) k/uL PT 45.6 H (10.0-12.5) sec INR 4.7 H (<1.2) Sodium 130 L (137-145) mmol/L Chloride 94 L (98-107) mmol/L BUN 94 H (9-20) mg/dL Creatinine 7.05 H* (0.66-1.25) mg/dL Glucose 152 H (74-99) mg/dL POC Glucose (mg/dL) (70-110) mg/dL Calcium 7.4 L (8.4-10.2) mg/dL Phosphorus (2.5-4.5) mg/dL C-Reactive Protein 5.7 H (<1.0) mg/dL Total Protein 5.7 L (6.3-8.2) g/dL Albumin 2.6 L (3.5-5.0) g/dL 02/26/24 02/26/24 02/26/24 Range/Units 08:34 11:52 16:36 WBC (3.8-10.6) k/uL RBC (4.30-5.90) m/uL Hgb (13.0-17.5) gm/dL Hct (39.0-53.0) % Neutrophils # (1.3-7.7) k/uL PT (10.0-12.5) sec INR (<1.2) Sodium (137-145) mmol/L Chloride (98-107) mmol/L BUN (9-20) mg/dL Creatinine (0.66-1.25) mg/dL Glucose (74-99) mg/dL POC Glucose (mg/dL) 238 H 194 H (70-110) mg/dL Calcium (8.4-10.2) mg/dL Phosphorus 9.5 H* (2.5-4.5) mg/dL C-Reactive Protein (<1.0) mg/dL Total Protein (6.3-8.2) g/dL Albumin (3.5-5.0) g/dL 02/26/24 02/27/24 Range/Units 19:52 06:25 WBC (3.8-10.6) k/uL RBC (4.30-5.90) m/uL Hgb (13.0-17.5) gm/dL Hct (39.0-53.0) % Neutrophils # (1.3-7.7) k/uL PT (10.0-12.5) sec INR (<1.2) Sodium (137-145) mmol/L Chloride (98-107) mmol/L BUN (9-20) mg/dL Creatinine (0.66-1.25) mg/dL Glucose (74-99) mg/dL POC Glucose (mg/dL) 134 H 127 H (70-110) mg/dL Calcium (8.4-10.2) mg/dL Phosphorus (2.5-4.5) mg/dL C-Reactive Protein (<1.0) mg/dL Total Protein (6.3-8.2) g/dL Albumin (3.5-5.0) g/dL Assessment and Plan (1) Leukocytosis Current Visit: Yes Status: Acute Code(s): D72.829 - ELEVATED WHITE BLOOD CELL COUNT, UNSPECIFIED SNOMED Code(s): 280527806 (2) MSSA bacteremia Current Visit: Yes Status: Acute Code(s): R78.81 - BACTEREMIA; B95.61 - METHICILLIN SUSCEP STAPH INFCT CAUSING DIS CLASSD [id number] SNOMED Code(s): 597513148 Plan: 1patient with MSSA bacteremia in this patient who do have a history of renal failure with on hemodialysis with a left arm fistula site with presentation to the hospital with weakness fall and urinary frequency however UA is negative abdominal soft no significant respiratory symptoms or hypoxemia question of possible related to the fistula site which was nonfunctioning and did have angiogram and angioplasty done this admission. 2blood cultures repeated 02/17/2024 came back positive blood culture has been repeated 02/19/2024 as well as 02/20/2024 are so far negative keeping in mind his TAVR procedure, cardiology has been consulted for TREY which was completed with evidence of large vegetation on the anterior mitral valve leaflet did not mention any vegetation on the bioprosthetic aortic valve 3-CT surgery has been consulted because of the large vegetation patient has been evaluated by CT surgery recommending no surgical intervention at this point 4-patient is covered with Naficillin , patient has clear his bacteremia one of the option could be doing cefazolin with the dialysis to avoid placement of another PICC line this will be discussed further with the nephrology team Dictation was produced using [employer] dictation software. please excuse any grammatical, word or spelling errors. Time with Patient: Less than 30
--- NOTE | 2024-02-27 13:52 | P.PN ---
Subjective Progress Note Date: 02/27/24 On today's evaluation of 02/22/2024, seen the patient for a follow-up. The patient is currently undergoing hemodialysis and is resting comfortably in bed while awaiting a BiPAP at a pressure of 10/5 with an FiO2 of 30%. No significant respiratory distress at this point in time. Noted the patient had staphylococcal bacteremia/MSSA and the patient is currently on IV cefazolin. Pulse ox is in the order of 94% while wearing the BiPAP. No labs are available from today. Yesterday's labs were noted. The white cell count at 13.7 with a hemoglobin of 8.1 and a platelet count of 140. The most recent chest x-ray from 02/18/2024 showed cardiomegaly and mild pulm vascular congestion. No evidence of any consolidation or airspace disease. Echocardiogram on 02/16/2024 showed left- ventricular ejection fraction of 40 to 45%, global hypokinesis, moderately decreased LV function, the aortic valve had some mild to moderate para valvular leak otherwise, no other significant valvular abnormalities noted. The patient is otherwise calm and comfortable. His comorbid conditions include end-stage renal disease on hemodialysis 3 times a week and the patient has a malfunctioning AV graft and the patient is status post angioplasty and thrombolysis of the left subclavian vein. Nephrology on the case. Vascular surgery is also on the case. Hemoglobin is stable for now and there is no evidence of any GI bleeding. The patient has been anticoagulated regarding chronic atrial fibrillation. The patient has hyperlipidemia, diabetes mellitus type 2 as comorbid conditions. The patient is post TAVR procedure with some mild to moderate aortic valvular leak. 02/23/2024, the patient is being seen for a follow-up. This patient is 78 and the patient has MSSA septicemia currently on IV cefazolin. The most recent follow-up blood cultures from [facility] on 02/20/2024 were negative. The patient remains hemodynamically stable. On today's blood work, there is a white cell count of 15.5 with a hemoglobin of 8 and a platelet count of 211. The sodium level is 132, BUN 77 creatinine 5.38 and a potassium level is at 3.9. INR is currently at 3.9. Patient remains on IV cefazolin. The patient is on Levemir insulin 24 units at bedtime along with NovoLog 2 units with meals + scale coverage. Remains on Demadex 40 mg p.o. daily. Remains on Flomax. The CAT scan of the brain was done today and showed no acute abnormalities and there was some nonspecific white matter changes likely secondary to chronic small vessel ischemic disease. At the same time, a chest x-ray was repeated today and shows essentially stable findings with some calcification along the pleural surface and the right and mild pulm vessel congestion without any significant interval changes compared to the earlier chest x-ray. Respiratory status is stable. The patient is currently off the BiPAP initially at 2 L and subsequently out of her oxygen with a pulse ox of 96%. The patient is also being seen by infectious disease. TREY has been ordered. The patient is being seen by nephrology. Regarding his end-stage renal disease and the patient is undergoing hemodialysis MWF. No problems with dialysis and his last dialysis session was done yesterday. No reported shortness of breath at this point in time. His MSSA bacteremia is still being investigated and the patient is being considered for a TREY. On today's evaluation of 02/24/2024, the patient is essentially unchanged. Calm and comfortable, resting comfortably in bed. No significant respiratory distress. He remains on oxygen on room air with a pulse ox of 95%. No cough. No sputum production. No chest tightness. No wheezing. Obese, 17.8 with a hemoglobin of 8 and a platelet count of 236. BUN is 100 and the creatinine is at 7.1 and a sodium levels at 131. The patient has end-stage renal disease and the patient undergoes hemodialysis 3 times a week and he is scheduled to undergo hemodialysis today. Afebrile. Remains on IV cefazolin. Repeated blood culture s from 03/03/2024 on 02/20/2024 were negative. On 02/25/2024, seen the patient for a follow-up. Resting comfortably in bed on room air oxygen. No respiratory distress. Last hemodialysis session was y . No chest pain. No shortness of breath. Hemodynamically stable. White cell count at 17 with a hemoglobin 8.1. INR is at 3.3. BUN 67 with a creatinine of 5.25 and a potassium level of 3.9. Afebrile for now. Repeat blood cultures have been negative thus far. Patient is being seen for a follow-up. Unfortunately, the TREY that was completed today showed evidence of infective endocarditis. The patient had a large vegetation noted over the anterior mitral valve leaflet consistent with diagnosis of infective endocarditis. The patient has a bioprosthetic aortic valve also. Note that he remains quite lethargic. He is awake alert and communicating. Weakness was noted in the left upper and left lower extremity and this has evolved over the past 24 to 48 hours. Septic emboli to the brain was suspected. Based on that, CAT scan of the brain was done and showed no evidence of any acute intracranial process and there was some nonspecific white matter changes likely secondary to chronic small vessel ischemic changes. Antibiotics has been switched to nafcillin. The repeat blood cultures from 02/19/2024 and 02/20/2024 were negative. White cell count is 16.7 with a hemoglobin of 8.4 and a platelet count of 227. INR is at 4.7. BUN is 94 with a creatinine of 7.05 and sodium is at 130 with a potassium level of 5.0. Consultation was placed for cardiothoracic surgery regarding the endocarditis. The patient undergoes hemodialysis 3 times a week. No significant shortness of breath. This morning, he was on room air with a pulse ox of 99%. No hypotension. No cardiac arrhythmias noted. 02/27/2024, the patient is being seen for a follow-up. He is currently on room air oxygen. Resting comfortably in bed. Considerable weakness in the left upper and left lower extremity. Remains on IV nafcillin. The patient is clinically and hemodynamically stable. As mentioned, the patient had a large vegetation involving the anterior mitral leaflet and a TREY it was done on . CAT scan of the brain showed no acute abnormalities. The patient denies having any shortness of breath. No chest pain. He remains on anticoagulation with warfarin and the PT/INR is supratherapeutic and this is being managed by the medical team. No other significant issues otherwise. No skin rashes. No hematuria. Very much weak and debilitated. Objective - Vital Signs Vital signs: Vital Signs Temp 98.5 F 02/27/24 08:14 Pulse 78 02/27/24 09:45 Resp 18 02/27/24 09:45 BP 130/54 02/27/24 08:14 Pulse Ox 96 02/27/24 08:14 FiO2 30 02/27/24 04:12 Intake & Output 05/02/27/24 02/27/24 18:59 06:59 18:59 Intake Total 120 400 110 Output Total 2400 Balance 120 -2000 110 Weight 105 kg Intake: Oral 120 110 Hemodialysis 400 Output: Stool 0 Hemodialysis 2400 Other: Voiding Method External Catheter Diaper Diaper # Voids 0 1 # Bowel Movements 1 1 - Exam No acute distress, oriented 3. The patient is currently on room air oxygen. head exam was generally normal. There was no scleral icterus or corneal arcus. Mucous membranes were moist. HEENT examination is grossly unremarkable. Mucous membranes are moist. No oral lesions. Neck supple. Full range of motion. No adenopathy thyromegaly or neck vein distention. Cardiovascular examination reveals regular rhythm rate. S1-S2 normal. Harsh murmur could be appreciated over the left lateral sternal border and apex along with a gallop rhythm. Lungs reveal mild bibasilar crackles. No wheezes or rhonchi. Breath sounds are equal bilaterally. Abdomen soft bowel sounds are heard. No masses or tenderness. Extremities are intact. No cyanosis clubbing or edema. Skin is without rash or lesion. Neurologic examination reveals motor weakness on the left upper and left lower extremity. The patient has profound generalized global weakness. There is obvious asymmetry in the motor function with weakness in the left lower extremity and left upper extremity on today's examination. No Babinski. No clonus. No cranial nerve deficits. - Labs CBC & Chem 7: 02/26/24 08:34 02/26/24 08:34 Labs: Abnormal Lab Results - Last 24 Hours (Table) 02/26/24 02/26/24 02/26/24 Range/Units 08:34 08:34 11:52 PT (10.0-12.5) sec INR (<1.2) Sodium 130 L (137-145) mmol/L Chloride 94 L (98-107) mmol/L BUN 94 H (9-20) mg/dL Creatinine 7.05 H* (0.66-1.25) mg/dL Glucose 152 H (74-99) mg/dL POC Glucose (mg/dL) 238 H (70-110) mg/dL Calcium 7.4 L (8.4-10.2) mg/dL Phosphorus 9.5 H* (2.5-4.5) mg/dL C-Reactive Protein 5.7 H (<1.0) mg/dL Total Protein 5.7 L (6.3-8.2) g/dL Albumin 2.6 L (3.5-5.0) g/dL 02/26/24 02/26/24 02/27/24 Range/Units 16:36 19:52 06:25 PT (10.0-12.5) sec INR (<1.2) Sodium (137-145) mmol/L Chloride (98-107) mmol/L BUN (9-20) mg/dL Creatinine (0.66-1.25) mg/dL Glucose (74-99) mg/dL POC Glucose (mg/dL) 194 H 134 H 127 H (70-110) mg/dL Calcium (8.4-10.2) mg/dL Phosphorus (2.5-4.5) mg/dL C-Reactive Protein (<1.0) mg/dL Total Protein (6.3-8.2) g/dL Albumin (3.5-5.0) g/dL 02/27/24 Range/Units 07:06 PT 65.0 H (10.0-12.5) sec INR 6.6 H* (<1.2) Sodium (137-145) mmol/L Chloride (98-107) mmol/L BUN (9-20) mg/dL Creatinine (0.66-1.25) mg/dL Glucose (74-99) mg/dL POC Glucose (mg/dL) (70-110) mg/dL Calcium (8.4-10.2) mg/dL Phosphorus (2.5-4.5) mg/dL C-Reactive Protein (<1.0) mg/dL Total Protein (6.3-8.2) g/dL Albumin (3.5-5.0) g/dL Assessment and Plan Plan: Acute hypoxemic respiratory failure, likely secondary to a combination of fluid overload and acute systolic CHF exacerbation. Currently on room air oxygen and clinically improved End-stage renal disease, receiving hemodialysis on a Thursday, Thursday, Thursday schedule. The patient apparently had a nonfunctioning AV fistula, and, the patient was to undergo a left upper extremity fistulogram, with ultrasound- guided access, PTBA, and thrombolysis. Subsequent to the graft working. The hemodialysis is undergoing scheduled hemodialysis under the care of nephrology. Atrial fibrillation with rapid ventricular response, rate is under adequate control for now, PT/INR is supratherapeutic Staph aureus sepsis and the patient presented with bacteremia and sepsis, secondary to methicillin sensitive Staphylococcus aureus. The patient remains on IV nafcillin. No indication of any endocarditis based on the transthoracic echocardiogram. The patient is currently on IV nafcillin. Infective endocarditis with large vegetation involving the anterior leaflet of the mitral valve. Please refer to the results of the TREY. Follow-up blood cultures from 02/19/2024 and 02/20/2024 are negative the patient is currently on IV nafcillin. Left sided weakness, rule out septic emboli to the brain. Rule out CVA. Patient had a CAT scan of the brain that showed no acute abnormalities. History of TAVR with aortic valve replacement with mild to moderate aortic valvular leak Hypotension and shock, recovered and the patient is hemodynamically stable Acute febrile illness, currently afebrile Altered mental status, possibly explained by acute metabolic encephalopathy and sepsis, improving Acute leukocytosis, secondary to above Thrombocytopenia, chronic Anemia of chronic disease, secondary to end-stage renal disease. Elevated troponins, suspect supply/demand mismatch. History of TAVR. History of hyperlipidemia. Obesity, with a BMI of 33.5 kg/m. Obstructive sleep apnea, with home BiPAP device. Former tobacco smoker. Plan: Patient is currently on room air oxygen. May need O2 should there be any oxygen desaturation. Most recent chest x-ray shows stable findings without any acute abnormalities. continue IV nafcillin and infectious disease on the case. Regarding endocarditis, cardiothoracic surgery consultation will be also placed. Patient is post TAVR. Noted to follow-up blood cultures have been negative thus far. Hemodynamically stable Monitor motor function on the left side of the body. Hemodialysis per nephrology Management of the warfarin related PT/INR monitoring from medicine. Follow-up blood cultures are negative Prognosis poor based on above-mentioned findings. May need a neurology consultation and possibly an MRI of the brain Carries a poor prognosis based on his comorbidities and presence of infective endocarditis involving the anterior leaflet of the mitral valve. Overall condition is stable and will continue to follow.
[2024-02-27 16:10] LABS: Glucose,Whole Blood 178 mg/dL (70-110)
[2024-02-27] MEDS: WARFARIN 0.5 MG TAB PO ONE (16:57)
--- NOTE | 2024-02-27 19:57 | P.GSCN ---
History of Present Illness Consult date: 02/27/24 Reason for Consult: Possible left upper extremity AV fistula dysfunction. History of present illness: Patient is a 78-year-old male who suffers from end-stage renal disease who has a previously placed left upper extremity AV graft which has been working well. Recently some issues regarding possible clotting was experienced however the fistula remains useful for the patient. He denies any arm pain or other symptoms. Past Medical History Past Medical History: Atrial Fibrillation, Atrial Flutter, COPD, Diabetes Mellitus, Dialysis, Hyperlipidemia, Hypertension, Renal Disease, Sleep Apnea/CPAP/BIPAP Additional Past Medical History / Comment(s): MWF DIALYSIS , uses cpap ,dialysis graft in lft arm, history of severe aortic valve stenosis status post TAVR July 2023 History of Any Multi-Drug Resistant Organisms: None Reported Past Surgical History: Cardiac Valve Replacement (TAVR valve completed at [facility] July 2023), Tonsillectomy Additional Past Surgical History / Comment(s): Left arm graft for dialysis Past Anesthesia/Blood Transfusion Reactions: No Reported Reaction Smoking Status: Former smoker Past Alcohol Use History: Rare Past Drug Use History: None Reported - Past Family History Father Family Medical History: Dementia, Pneumonia Brother(s) Family Medical History: Diabetes Mellitus, Sleep Apnea/CPAP/BIPAP Additional Family Medical History / Comment(s): Parkinson's Dis. Mother Family Medical History: Dementia Medications and Allergies Home Medications Medication Instructions Recorded Confirmed Type Alogliptin Benzoate [Alogliptin] 6.25 mg PO HS 11/20/23 02/15/24 History Insulin Glargine,Hum.rec.anlog 45 units SQ HS 11/20/23 02/15/24 History [Lantus Solostar Pen] Multivitamins, Thera [Multivitamin 1 tab PO DAILY 11/20/23 02/15/24 History (formulary)] [place]-3/Dha/Epa/Fish Oil [Fish Oil 1,000 mg PO DAILY 11/20/23 02/15/24 History 1,000 mg Softgel] Tamsulosin HCl [Flomax] 0.4 mg PO HS 11/20/23 02/15/24 History Warfarin [Coumadin] 2.5 mg PO DIRECTED 11/20/23 02/15/24 History diphenhydrAMINE HCL [Benadryl] 25 mg PO HS 11/20/23 02/15/24 History Lovastatin [Mevacor] 10 mg PO HS 02/15/24 02/15/24 History Allergies Allergy/AdvReac Type Severity Reaction Status Date / Time No Known Allergies Allergy Verified 02/15/24 16:59 Surgical - Exam Osteopathic Statement: *. No significant issues noted on an osteopathic structural exam other than those noted in the History and Physical/Consult. Vital Signs Temp Pulse Resp BP Pulse Ox 104.1 F H 140 H 16 196/98 97 02/15/24 13:48 02/15/24 13:48 02/15/24 13:48 02/15/24 13:48 02/15/24 13:48 Patient Seen Date: 02/27/24 Patient Seen Time: 19:20 Bruit is identified over the fistula left upper extremity. Palpable radial pulses noted on the left. Results - Labs 02/26/24 08:34 02/26/24 08:34 Abnormal Lab Results - Last 24 Hours (Table) 02/27/24 02/27/24 02/27/24 Range/Units 06:25 07:06 11:11 PT 65.0 H (10.0-12.5) sec INR 6.6 H* (<1.2) POC Glucose (mg/dL) 127 H 221 H (70-110) mg/dL 02/27/24 Range/Units 16:09 PT (10.0-12.5) sec INR (<1.2) POC Glucose (mg/dL) 178 H (70-110) mg/dL Assessment and Plan Assessment: Possible left upper extremity AV dialysis graft dysfunction. Plan: 1: Will obtain duplex imaging. 2: Results of imaging will help guide further recommendations.
[2024-02-27 20:35] LABS: Glucose,Whole Blood 316 mg/dL (70-110)
[2024-02-27] MEDS: METOPROLOL TARTRATE 50 MG TAB PO SCH (20:41)
--- NOTE | 2024-02-27 22:06 | US ---
EXAMINATION TYPE: US duplex graft UE LT DATE OF EXAM: 02/27/2024 Exam done portable COMPARISON: NONE CLINICAL INDICATION: Male, 78 years old with history of Stenosis.; Left upper arm graft - visualized portions appear patent, lower portion covered by bandage IMPRESSION: 1. Visualized appears patent. MTDD
[2024-02-28 06:25] LABS: Glucose,Whole Blood 178 mg/dL (70-110)
[2024-02-28 09:51] LABS: African American GFR (CKD) 9 (>60 ml/min/1.73 sqM); Anion Gap 11 mmol/L; Blood Urea Nitrogen 75 mg/dL (9-20); C Reactive Protein 5.7 mg/dL (<1.0); Calcium 7.4 mg/dL (8.4-10.2); Carbon Dioxide 25 mmol/L (22-30); Chloride 91 mmol/L (98-107); Glucose 137 mg/dL (74-99); Magnesium 2.1 mg/dL (1.6-2.3); Non-African American GFR(CKD) 8 (>60 ml/min/1.73 sqM); Potassium 4.7 mmol/L (3.5-5.1); Sodium 127 mmol/L (137-145)
--- NOTE | 2024-02-28 09:54 | P.PN ---
Subjective Progress Note Date: 02/28/24 Hospital Course: Patient is a 78-year-old male with with known diabetes, atrial fibrillation anticoagulated with Coumadin, prior aortic valve replacement, dyslipidemia, end- stage renal disease on hemodialysis Thursday/Thursday/Thursday, and BPH who presented to the emergency department due to confusion and weakness. He had previously been to [facility] where he was noted to have a fever and elevated heart rate he was then discharged from the emergency department. When he went to go to dialysis they terminated after 1 hour due to a fever. On arrival to the emergency department he was noted to be febrile to 104.1 with a heart rate of 140. Initial laboratory analysis was remarkable for white blood cell count 19.4, platelets 131, lactic acid 2.6, troponin 0.12, and renal function consistent with his known dialysis. Influenza A/B/RSV/COVID-19 testing was negative. Initial chest x-ray demonstrated pulmonary vascular congestion. Patient was admitted for sepsis of unknown etiology and A-fib with RVR. He was to started on vancomycin and cefepime as well as a Cardizem drip. Critical care and cardiology were consulted. Echocardiogram was performed which demonstrated ejection fraction of 40 to 45% with mild to moderate perivalvular leak of his aortic valve replacement. Vascular surgery was consulted as his dialysis access is not working. And on 02/15 he underwent left upper extremity fistulogram with transluminal ballooning and thrombolysis at proximal aspect of graft. He then underwent hemodialysis and became slightly hypotensive requiring initiation of norepinephrine. He was subsequently transferred to the ICU. He had melanic stools. His hemoglobin stabilized and he had a recent outpatient colonoscopy without active bleeding. Blood cultures came back positive for M SSA. Currently on cefazolin. Patient does have a history of bioprosthetic aortic valve, TREY is pending. There was concern for possible aspiration. Speech therapy was consulted. 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 This can be advanced once mentation improves. Due to worsening mentation, CT head was ordered which was negative for any acute process. Mentation improved. Subjective: Patient seen and examined at bedside. COntinues to be encephalopathic. Left sided deficits are present Vitals Signs Reviewed. General: Nontoxic, no distress, appears at stated age Derm: Warm, dry Head: Atraumatic, normocephalic, symmetric Eyes: EOMI, no lid lag, anicteric sclera Mouth: No lip lesion, mucus membranes moist Cardiovascular: S1S2 reg, no murmur Lungs: CTA bilateral, no rhonchi, no rales, no accessory muscle use Abdominal: Soft, nontender to palpation, no guarding, no appreciable organomegaly Ext: No gross muscle atrophy, trace peripheral edema, no contractures Neuro: CN II-XI grossly intact, left motor weakness > right motor weakness Psych: Alert, oriented x 3, appropriate affect Data Reviewed Today: Pertinent Labs: WBC 17.1, hemoglobin 8.1, INR 3.3, creatinine 5.25, sodium 131, blood glucose range between 10 2-1 70, magnesium 2.1 Imaging: No acute imaging Assessment and Plan: MSSA bacteremia with sepsis Infective Endocarditis of the Mitral Valve -Abx: Nafcillin 2 g every 4 hours -Patient's last cultures done on 02/17/2024 are positive -Blood cultures from 02/19/2024 are negative to date -Infectious disease following, -TREY reviewed: large free floating vegetation of the mitral valve anterior leaflet -cardiology consult appreciated -CT surgery consulted, discussed with them again today, no class I indication for surgery at this time, they will continue to follow End-stage renal disease on hemodialysis Thursday/Thursday/Thursday Malfunction AV graft- s/p angioplasty/thrombolysis of left subclavian vein -Nephrology note reviewed, continue PhosLo with meals, and torsemide 40 mg daily - Vascular now signed off Acute metabolic encephalopathy, resolved -CT head negative for any acute process. Repeat on 02/25 also negative -MR brain ordered, pending -Possible hypoactive delirium in the setting of acute illness -TSH normal, B12 level pending -Delirium precautions Melena, possible lower GI bleed resolved Normocytic anemia, probable acute blood loss with chronic renal disease and dialysis -Hemoglobin currently stable - GI was previously consulted, continue with Protonix for GI prophylaxis, diet as tolerated, recent colonoscopy with no active bleeding but positive occult stool. No plans for repeat endoscopic evaluation. - no indication for transfusion -Patient is on Coumadin pharmacy to dose, currently supratherapeutic Acute exacerbation of systolic congestive heart failure with ejection fraction 40 to 45% Atrial fibrillation with rapid ventricular response anticoagulated with coumadin Supratherapeutic INR Type II non-STEMI Dyslipidemia History of TAVR -Cardiology following, continue on Coumadin, pharmacy to dose -Lipitor 10 mg at night -Metoprolol 25 mg oral 3 times daily Thrombocytopenia, resolved Diabetes mellitus type 2 with hyperglycemia -At home patient takes Lantus 45 units at night and Alogliptin -A1c 8.8 -Continue Levemir 24 units at night, fixed dose NovoLog 2 units with each meal and continue with sliding scale insulin, monitor for hypoglycemia DVT prophylaxis: Coumadin Anticipated discharge date: Pending clinical course Anticipated discharge place: Pending clinical course Objective - Vital Signs Vital signs: Vital Signs Temp 98.3 F 02/28/24 08:53 Pulse 79 02/28/24 08:53 Resp 18 02/28/24 08:53 BP 136/65 02/28/24 08:53 Pulse Ox 100 02/28/24 08:53 FiO2 30 02/28/24 00:40 Intake & Output 02/27/24 02/28/24 02/28/24 18:59 06:59 18:59 Intake Total 770 200 Balance 770 200 Intake: Intake, IV Titration 300 200 Amount Nafcillin 2 gm In 300 200 Dextrose 5% in Water 100 ml @ 50 mls/hr IVPB Q4HR [facility] Rx#:[id number] Oral 470 Other: Voiding Method Diaper Diaper # Bowel Movements 1 1 - Labs CBC & Chem 7: 02/26/24 08:34 02/26/24 08:34 Labs: Abnormal Lab Results - Last 24 Hours (Table) 02/27/24 02/27/24 02/27/24 Range/Units 11:11 16:09 20:33 POC Glucose (mg/dL) 221 H 178 H 316 H (70-110) mg/dL 02/28/24 Range/Units 06:24 POC Glucose (mg/dL) 178 H (70-110) mg/dL
[2024-02-28 09:55] LABS: Basophils # (A) 0.1 k/uL (0-0.2); Basophils % (A) 1 %; Eosinophils # (A) 0.2 k/uL (0-0.7); Eosinophils % (A) 2 %; HCT 27.9 % (39.0-53.0); HGB 8.6 gm/dL (13.0-17.5); Lymphocytes # (A) 0.9 k/uL (1.0-4.8); Lymphocytes % (A) 7 %; MCH 30.4 pg (25.0-35.0); Monocytes # (A) 0.8 k/uL (0-1.0); Monocytes % (A) 6 %; Neutrophils # (A) 10.6 k/uL (1.3-7.7); Neutrophils % (A) 84 %; Platelet Count 221 k/uL (150-450); RBC 2.85 m/uL (4.30-5.90); RDW 15.2 % (11.5-15.5); WBC 12.7 k/uL (3.8-10.6)
[2024-02-28 10:04] LABS: Prothrombin Time 29.3 sec (10.0-12.5)
--- NOTE | 2024-02-28 10:31 | P.PN ---
Subjective Patient is seen in follow-up for end-stage renal disease. He is maintained on hemodialysis on Thursday schedule. No chest pain or shortness of breath. Hemodynamically stable. Vital signs are stable. General: No acute distress. HEENT: Head exam is unremarkable. On room air. LUNGS: No audible rhonchi or wheezes. HEART: Rate and Rhythm are regular. ABDOMEN: Nontender. EXTREMITITES: No edema. Objective - Vital Signs Vital signs: Vital Signs Temp 98.3 F 02/28/24 08:53 Pulse 79 02/28/24 08:53 Resp 18 02/28/24 08:53 BP 136/65 02/28/24 08:53 Pulse Ox 100 02/28/24 08:53 FiO2 30 02/28/24 00:40 Intake & Output 02/27/24 02/28/24 02/28/24 18:59 06:59 18:59 Intake Total 770 200 Balance 770 200 Intake: Intake, IV Titration 300 200 Amount Nafcillin 2 gm In 300 200 Dextrose 5% in Water 100 ml @ 50 mls/hr IVPB Q4HR [facility] Rx#:[id number] Oral 470 Other: Voiding Method Diaper Diaper # Bowel Movements 1 1 - Labs CBC & Chem 7: 02/28/24 09:08 02/28/24 09:08 Labs: Abnormal Lab Results - Last 24 Hours (Table) 02/27/24 02/27/24 02/27/24 Range/Units 11:11 16:09 20:33 WBC (3.8-10.6) k/uL RBC (4.30-5.90) m/uL Hgb (13.0-17.5) gm/dL Hct (39.0-53.0) % Neutrophils # (1.3-7.7) k/uL Lymphocytes # (1.0-4.8) k/uL PT (10.0-12.5) sec INR (<1.2) Sodium (137-145) mmol/L Chloride (98-107) mmol/L BUN (9-20) mg/dL Creatinine (0.66-1.25) mg/dL Glucose (74-99) mg/dL POC Glucose (mg/dL) 221 H 178 H 316 H (70-110) mg/dL Calcium (8.4-10.2) mg/dL C-Reactive Protein (<1.0) mg/dL 02/28/24 02/28/24 02/28/24 Range/Units 06:24 09:08 09:08 WBC (3.8-10.6) k/uL RBC (4.30-5.90) m/uL Hgb (13.0-17.5) gm/dL Hct (39.0-53.0) % Neutrophils # (1.3-7.7) k/uL Lymphocytes # (1.0-4.8) k/uL PT 29.3 H (10.0-12.5) sec INR 3.0 H (<1.2) Sodium 127 L (137-145) mmol/L Chloride 91 L (98-107) mmol/L BUN 75 H (9-20) mg/dL Creatinine 6.19 H (0.66-1.25) mg/dL Glucose 137 H (74-99) mg/dL POC Glucose (mg/dL) 178 H (70-110) mg/dL Calcium 7.4 L (8.4-10.2) mg/dL C-Reactive Protein 5.7 H (<1.0) mg/dL 02/28/24 Range/Units 09:08 WBC 12.7 H (3.8-10.6) k/uL RBC 2.85 L (4.30-5.90) m/uL Hgb 8.6 L (13.0-17.5) gm/dL Hct 27.9 L (39.0-53.0) % Neutrophils # 10.6 H (1.3-7.7) k/uL Lymphocytes # 0.9 L (1.0-4.8) k/uL PT (10.0-12.5) sec INR (<1.2) Sodium (137-145) mmol/L Chloride (98-107) mmol/L BUN (9-20) mg/dL Creatinine (0.66-1.25) mg/dL Glucose (74-99) mg/dL POC Glucose (mg/dL) (70-110) mg/dL Calcium (8.4-10.2) mg/dL C-Reactive Protein (<1.0) mg/dL Assessment and Plan Plan: Assessment: 1. End-stage renal disease maintained on hemodialysis on Thursday schedule. 2. A-fib with RVR status post Cardizem drip. On Lopressor. 3. Diabetes mellitus. 4. MSSA bacteremia on antibiotics. ID following. TREY showed a large vegetation on the mitral valve. CTS following. Septic emboli noted on MRI. No surgical intervention planned at this time. 5. Hyperphosphatemia secondary to chronic kidney disease. Phosphorus level 7.2 dated February 23, 2024. On PhosLo. 6. Anemia of chronic kidney disease. On Aranesp. 7. Hyponatremia secondary to chronic kidney disease. Plan: Hemodialysis Thursday. Maintain torsemide.
[2024-02-28 11:38] LABS: Glucose,Whole Blood 131 mg/dL (70-110)
--- NOTE | 2024-02-28 13:52 | P.PN ---
Subjective Progress Note Date: 02/28/24 HISTORY OF PRESENT ILLNESS: This is a 78-year-old female with a past medical history significant for end- stage renal disease on hemodialysis, obstructive sleep apnea with CPAP use, hypertension, hyperlipidemia, diabetes, atrial flutter/fibrillation. Patient does not follow with a cardiothoracic physiotherapist locally. He follows with a physician at [facility]. We have been asked to see the patient in consultation for AF with RVR. Patient examined at the bedside in the ER. Patient was found to be septic and workup is ongoing per primary medicine. Patient was found to be in atrial fibrillation/flutter with RVR. Patient was placed on IV Cardizem which has since been discontinued. His rates are controlled at the time of examination. He is currently undergoing hemodialysis. Patient was placed on IV heparin. His Co umadin has not been resumed. DIAGNOSTICS: - EKG reveals atrial flutter with RVR. Left BBB - Chest xray cardiomegaly, pulmonary vascular congestion and bilateral pleural effusions - Laboratory data: BC 17.4. Hemoglobin 9.8. Platelet count 92. INR 1.9. Sodium 136. Potassium 3.5. BUN 87. Creatinine 4.79. Troponin 0.276 - Current home cardiac medications include Lovastatin 10 mg daily and Coumadin 2.5mg daily 02/18/2024 Patient examined this morning at the bedside. Currently denies chest pain or pressure. He denies shortness of breath. Telemetry reveals sinus mechanism. Patient's Coumadin has been placed on hold secondary to drop in hemoglobin. Hemoglobin this morning is improved at 9.3. Echocardiogram completed revealing ejection fraction 40 to 45%, false tendon seen in LV, mild MR, TAVR valve without stenosis, mild to moderate perivalvular aortic regurgitation, mild tricuspid regurgitation. 02/22 Cardiology signed off this case on [id number] but we have been asked to reassess the p atient for TREY due to bacteremia. Patient has been maintained on IV cefazolin. Patient is currently on BiPAP, blood pressure 132/73, heart rate 63. Repeat blood work reveals WBC 15.5, hemoglobin 8, INR is 3.9. 02/23 Blood pressure 125/66, heart rate 75, pulse ox 95% on room air. Patient is on BiPAP when sleeping or at nighttime. He has been afebrile. His mental status is slow to respond which apparently has been going on for several days. CAT scan of the brain last evening revealed no acute intracranial process. Patient is maintained on hemodialysis per nephrology. Hemoglobin 8, WBC 17.8. INR 3.3. Sodium 131, potassium 4.2, BUN 100 creatinine 7.15. 02/24 Patient will be scheduled for a TREY tomorrow with Dr. Judy Diaz. 02/26 Yesterday, patient underwent TREY with Dr. Judy Diaz which revealed large vegetation on the mitral valve, mild to moderate mitral regurgitation. Tricuspid has mild tricuspid regurgitation. Bioprosthetic valve in aortic position with mild aortic regurgitation. Left atrium mildly enlarged. Right atrium and right ventricle within normal limits. Aortic root does not appear enlarged. No evidence of left to right shunt. A consult was added for cardiothoracic surgery. Patient has been maintained on IV antibiotics managed by Dr. Butler. Blood pressure 130/54, heart rate 78, pulse ox 96% on room air. INR 6.6. Yesterday, during dialysis, patient had episode of atrial flutter 2:1 at 150 bpm. Patient updated re findings on TREY. 02/27 Blood pressure 136/65, heart rate 79, pulse ox 100% on room air. Lopressor was increased yesterday due to a flutter. Repeat blood work reveals hemoglobin of 8.6. INR 3. Sodium 127, potassium 4.7, BUN 75 creatinine 6.19. Consult was added with vascular surgery regarding left upper extremity AV fistula dysfunction. Duplex fistula appears patent. ASSESSMENT: Sepsis with MSSA bacteremia secondary to endocarditis Atrial fibrillation with RVR, paroxysmal, on Coumadin Atrial flutter w RVR episode while on HD Left bundle branch block End-stage renal disease on hemodialysis Abnormal troponin, likely secondary to CKD Anemia of chronic disease Hypertension Hyperlipidemia Diabetes Obstructive sleep apnea with CPAP use History of TAVR, July 2023, [facility] PLAN: Continue sepsis treatment per Dr. Butler Continue cardiac medications: Atorvastatin, Lasix, Lopressor, Coumadin-pharmacy dosing Continue increased Lopressor to 50 mg bid Further recommendations pending patient course Nurse practitioner note has been reviewed by physician. Signing provider agrees with the documented findings, assessment, and plan of care documented by [employer] as a scribe. Objective - Vital Signs Vital signs: Vital Signs Temp 98.3 F 02/28/24 08:53 Pulse 79 02/28/24 08:53 Resp 18 02/28/24 08:53 BP 136/65 02/28/24 08:53 Pulse Ox 100 02/28/24 08:53 FiO2 30 02/28/24 00:40 Intake & Output 02/27/24 02/28/24 02/28/24 18:59 06:59 18:59 Intake Total 770 200 Balance 770 200 Intake: Intake, IV Titration 300 200 Amount Nafcillin 2 gm In 300 200 Dextrose 5% in Water 100 ml @ 50 mls/hr IVPB Q4HR [facility] Rx#:[id number] Oral 470 Other: Voiding Method Diaper Diaper # Bowel Movements 1 1 - Labs CBC & Chem 7: 02/28/24 09:08 02/28/24 09:08 Labs: Abnormal Lab Results - Last 24 Hours (Table) 02/27/24 02/27/24 02/27/24 Range/Units 11:11 16:09 20:33 WBC (3.8-10.6) k/uL RBC (4.30-5.90) m/uL Hgb (13.0-17.5) gm/dL Hct (39.0-53.0) % Neutrophils # (1.3-7.7) k/uL Lymphocytes # (1.0-4.8) k/uL PT (10.0-12.5) sec INR (<1.2) Sodium (137-145) mmol/L Chloride (98-107) mmol/L BUN (9-20) mg/dL Creatinine (0.66-1.25) mg/dL Glucose (74-99) mg/dL POC Glucose (mg/dL) 221 H 178 H 316 H (70-110) mg/dL Calcium (8.4-10.2) mg/dL C-Reactive Protein (<1.0) mg/dL 02/28/24 02/28/24 02/28/24 Range/Units 06:24 09:08 09:08 WBC (3.8-10.6) k/uL RBC (4.30-5.90) m/uL Hgb (13.0-17.5) gm/dL Hct (39.0-53.0) % Neutrophils # (1.3-7.7) k/uL Lymphocytes # (1.0-4.8) k/uL PT 29.3 H (10.0-12.5) sec INR 3.0 H (<1.2) Sodium 127 L (137-145) mmol/L Chloride 91 L (98-107) mmol/L BUN 75 H (9-20) mg/dL Creatinine 6.19 H (0.66-1.25) mg/dL Glucose 137 H (74-99) mg/dL POC Glucose (mg/dL) 178 H (70-110) mg/dL Calcium 7.4 L (8.4-10.2) mg/dL C-Reactive Protein 5.7 H (<1.0) mg/dL 02/28/24 Range/Units 09:08 WBC 12.7 H (3.8-10.6) k/uL RBC 2.85 L (4.30-5.90) m/uL Hgb 8.6 L (13.0-17.5) gm/dL Hct 27.9 L (39.0-53.0) % Neutrophils # 10.6 H (1.3-7.7) k/uL Lymphocytes # 0.9 L (1.0-4.8) k/uL PT (10.0-12.5) sec INR (<1.2) Sodium (137-145) mmol/L Chloride (98-107) mmol/L BUN (9-20) mg/dL Creatinine (0.66-1.25) mg/dL Glucose (74-99) mg/dL POC Glucose (mg/dL) (70-110) mg/dL Calcium (8.4-10.2) mg/dL C-Reactive Protein (<1.0) mg/dL
--- NOTE | 2024-02-28 14:13 | P.PN ---
Subjective Progress Note Date: 02/28/24 On today's evaluation of 02/22/2024, seen the patient for a follow-up. The patient is currently undergoing hemodialysis and is resting comfortably in bed while awaiting a BiPAP at a pressure of 10/5 with an FiO2 of 30%. No significant respiratory distress at this point in time. Noted the patient had staphylococcal bacteremia/MSSA and the patient is currently on IV cefazolin. Pulse ox is in the order of 94% while wearing the BiPAP. No labs are available from today. Yesterday's labs were noted. The white cell count at 13.7 with a hemoglobin of 8.1 and a platelet count of 140. The most recent chest x-ray from 02/18/2024 showed cardiomegaly and mild pulm vascular congestion. No evidence of any consolidation or airspace disease. Echocardiogram on 02/16/2024 showed left- ventricular ejection fraction of 40 to 45%, global hypokinesis, moderately decreased LV function, the aortic valve had some mild to moderate para valvular leak otherwise, no other significant valvular abnormalities noted. The patient is otherwise calm and comfortable. His comorbid conditions include end-stage renal disease on hemodialysis 3 times a week and the patient has a malfunctioning AV graft and the patient is status post angioplasty and thrombolysis of the left subclavian vein. Nephrology on the case. Vascular surgery is also on the case. Hemoglobin is stable for now and there is no evidence of any GI bleeding. The patient has been anticoagulated regarding chronic atrial fibrillation. The patient has hyperlipidemia, diabetes mellitus type 2 as comorbid conditions. The patient is post TAVR procedure with some mild to moderate aortic valvular leak. 02/23/2024, the patient is being seen for a follow-up. This patient is 78 and the patient has MSSA septicemia currently on IV cefazolin. The most recent follow-up blood cultures from [facility] on 02/20/2024 were negative. The patient remains hemodynamically stable. On today's blood work, there is a white cell count of 15.5 with a hemoglobin of 8 and a platelet count of 211. The sodium level is 132, BUN 77 creatinine 5.38 and a potassium level is at 3.9. INR is currently at 3.9. Patient remains on IV cefazolin. The patient is on Levemir insulin 24 units at bedtime along with NovoLog 2 units with meals + scale coverage. Remains on Demadex 40 mg p.o. daily. Remains on Flomax. The CAT scan of the brain was done today and showed no acute abnormalities and there was some nonspecific white matter changes likely secondary to chronic small vessel ischemic disease. At the same time, a chest x-ray was repeated today and shows essentially stable findings with some calcification along the pleural surface and the right and mild pulm vessel congestion without any significant interval changes compared to the earlier chest x-ray. Respiratory status is stable. The patient is currently off the BiPAP initially at 2 L and subsequently out of her oxygen with a pulse ox of 96%. The patient is also being seen by infectious disease. TREY has been ordered. The patient is being seen by nephrology. Regarding his end-stage renal disease and the patient is undergoing hemodialysis MWF. No problems with dialysis and his last dialysis session was done yesterday. No reported shortness of breath at this point in time. His MSSA bacteremia is still being investigated and the patient is being considered for a TREY. On today's evaluation of 02/24/2024, the patient is essentially unchanged. Calm and comfortable, resting comfortably in bed. No significant respiratory distress. He remains on oxygen on room air with a pulse ox of 95%. No cough. No sputum production. No chest tightness. No wheezing. Obese, 17.8 with a hemoglobin of 8 and a platelet count of 236. BUN is 100 and the creatinine is at 7.1 and a sodium levels at 131. The patient has end-stage renal disease and the patient undergoes hemodialysis 3 times a week and he is scheduled to undergo hemodialysis today. Afebrile. Remains on IV cefazolin. Repeated blood culture s from 03/03/2024 on 02/20/2024 were negative. On 02/25/2024, seen the patient for a follow-up. Resting comfortably in bed on room air oxygen. No respiratory distress. Last hemodialysis session was y . No chest pain. No shortness of breath. Hemodynamically stable. White cell count at 17 with a hemoglobin 8.1. INR is at 3.3. BUN 67 with a creatinine of 5.25 and a potassium level of 3.9. Afebrile for now. Repeat blood cultures have been negative thus far. Patient is being seen for a follow-up. Unfortunately, the TREY that was completed today showed evidence of infective endocarditis. The patient had a large vegetation noted over the anterior mitral valve leaflet consistent with diagnosis of infective endocarditis. The patient has a bioprosthetic aortic valve also. Note that he remains quite lethargic. He is awake alert and communicating. Weakness was noted in the left upper and left lower extremity and this has evolved over the past 24 to 48 hours. Septic emboli to the brain was suspected. Based on that, CAT scan of the brain was done and showed no evidence of any acute intracranial process and there was some nonspecific white matter changes likely secondary to chronic small vessel ischemic changes. Antibiotics has been switched to nafcillin. The repeat blood cultures from 02/19/2024 and 02/20/2024 were negative. White cell count is 16.7 with a hemoglobin of 8.4 and a platelet count of 227. INR is at 4.7. BUN is 94 with a creatinine of 7.05 and sodium is at 130 with a potassium level of 5.0. Consultation was placed for cardiothoracic surgery regarding the endocarditis. The patient undergoes hemodialysis 3 times a week. No significant shortness of breath. This morning, he was on room air with a pulse ox of 99%. No hypotension. No cardiac arrhythmias noted. 02/27/2024, the patient is being seen for a follow-up. He is currently on room air oxygen. Resting comfortably in bed. Considerable weakness in the left upper and left lower extremity. Remains on IV nafcillin. The patient is clinically and hemodynamically stable. As mentioned, the patient had a large vegetation involving the anterior mitral leaflet and a TREY it was done on . CAT scan of the brain showed no acute abnormalities. The patient denies having any shortness of breath. No chest pain. He remains on anticoagulation with warfarin and the PT/INR is supratherapeutic and this is being managed by the medical team. No other significant issues otherwise. No skin rashes. No hematuria. Very much weak and debilitated. 02/28/2024, patient is being seen for a follow-up. Yet arousable. Follows simple commands. Left-sided weakness is obvious. MRI of the brain was also done and showed no evidence bilateral numerous peripheral and deep punctate diffusion hyperintensities correlating with c his history of infective endocarditis and ischemic changes related to septic embolism. Hemodynamically stable on IV nafcillin. Remains anticoagulated with warfarin. Remains on Demadex. No respiratory distress. Remains on room air oxygen. Afebrile. Blood cultures are negative. WBC is at 12.7 with a hemoglobin 8.6, INR is at 3.0, sodium is at 127, BUN 75 with a creatinine of 6.1. Patient was seen by nephrology. The plan is to undergo dialysis on Thursday. In terms of the atrial fibrillation, rate is controlled and the patient is on Lopressor for rate control and the patient is also on anticoagulation with warfarin. Objective - Vital Signs Vital signs: Vital Signs Temp 98.3 F 02/28/24 08:53 Pulse 79 02/28/24 10:22 Resp 18 02/28/24 10:22 BP 136/65 02/28/24 08:53 Pulse Ox 100 02/28/24 08:53 FiO2 30 02/28/24 00:40 Intake & Output 02/27/24 02/28/24 02/28/24 18:59 06:59 18:59 Intake Total 770 200 Balance 770 200 Intake: Intake, IV Titration 300 200 Amount Nafcillin 2 gm In 300 200 Dextrose 5% in Water 100 ml @ 50 mls/hr IVPB Q4HR [facility] Rx#:[id number] Oral 470 Other: Voiding Method Diaper Diaper Diaper # Bowel Movements 1 1 - Exam No acute distress, oriented 3. The patient is currently on room air oxygen. head exam was generally normal. There was no scleral icterus or corneal arcus. Mucous membranes were moist. HEENT examination is grossly unremarkable. Mucous membranes are moist. No oral lesions. Neck supple. Full range of motion. No adenopathy thyromegaly or neck vein distention. Cardiovascular examination reveals regular rhythm rate. S1-S2 normal. Harsh murmur could be appreciated over the left lateral sternal border and apex along with a gallop rhythm. Lungs reveal mild bibasilar crackles. No wheezes or rhonchi. Breath sounds are equal bilaterally. Abdomen soft bowel sounds are heard. No masses or tenderness. Extremities are intact. No cyanosis clubbing or edema. Skin is without rash or lesion. Neurologic examination reveals motor weakness on the left upper and left lower extremity. The patient has profound generalized global weakness. There is obvious asymmetry in the motor function with weakness in the left lower extremity and left upper extremity on today's examination. No Babinski. No clonus. No cranial nerve deficits. - Labs CBC & Chem 7: 02/28/24 09:08 02/28/24 09:08 Labs: Abnormal Lab Results - Last 24 Hours (Table) 02/27/24 02/27/24 02/28/24 Range/Units 16:09 20:33 06:24 WBC (3.8-10.6) k/uL RBC (4.30-5.90) m/uL Hgb (13.0-17.5) gm/dL Hct (39.0-53.0) % Neutrophils # (1.3-7.7) k/uL Lymphocytes # (1.0-4.8) k/uL PT (10.0-12.5) sec INR (<1.2) Sodium (137-145) mmol/L Chloride (98-107) mmol/L BUN (9-20) mg/dL Creatinine (0.66-1.25) mg/dL Glucose (74-99) mg/dL POC Glucose (mg/dL) 178 H 316 H 178 H (70-110) mg/dL Calcium (8.4-10.2) mg/dL C-Reactive Protein (<1.0) mg/dL 02/28/24 02/28/24 02/28/24 Range/Units 09:08 09:08 09:08 WBC 12.7 H (3.8-10.6) k/uL RBC 2.85 L (4.30-5.90) m/uL Hgb 8.6 L (13.0-17.5) gm/dL Hct 27.9 L (39.0-53.0) % Neutrophils # 10.6 H (1.3-7.7) k/uL Lymphocytes # 0.9 L (1.0-4.8) k/uL PT 29.3 H (10.0-12.5) sec INR 3.0 H (<1.2) Sodium 127 L (137-145) mmol/L Chloride 91 L (98-107) mmol/L BUN 75 H (9-20) mg/dL Creatinine 6.19 H (0.66-1.25) mg/dL Glucose 137 H (74-99) mg/dL POC Glucose (mg/dL) (70-110) mg/dL Calcium 7.4 L (8.4-10.2) mg/dL C-Reactive Protein 5.7 H (<1.0) mg/dL Assessment and Plan Plan: Acute hypoxemic respiratory failure, likely secondary to a combination of fluid overload and acute systolic CHF exacerbation. Currently on room air oxygen and clinically improved End-stage renal disease, receiving hemodialysis on a Thursday, Thursday, Thursday schedule. The patient apparently had a nonfunctioning AV fistula, and, the patient was to undergo a left upper extremity fistulogram, with ultrasound- guided access, PTBA, and thrombolysis. Subsequent to the graft working. The hemodialysis is undergoing scheduled hemodialysis under the care of nephrology. Atrial fibrillation with rapid ventricular response, rate is under adequate control for now, PT/INR is supratherapeutic Staph aureus sepsis and the patient presented with bacteremia and sepsis, secondary to methicillin sensitive Staphylococcus aureus. The patient remains on IV nafcillin. No indication of any endocarditis based on the transthoracic echocardiogram. The patient is currently on IV nafcillin. Infective endocarditis with large vegetation involving the anterior leaflet of the mitral valve. Please refer to the results of the TREY. Follow-up blood cultures from 02/19/2024 and 02/20/2024 are negative the patient is currently on IV nafcillin. Patient has evidence of septic emboli and multiple areas of ischemic changes based on MRI findings. Diminished level of consciousness along with left sided weakness, rule out septic emboli to the brain. Rule out CVA. Patient had a CAT scan of the brain that showed no acute abnormalities. The MRI of the the brain is consistent with septic embolism. History of TAVR with aortic valve replacement with mild to moderate aortic valvular leak Hypotension and shock, recovered and the patient is hemodynamically stable Acute febrile illness, currently afebrile Altered mental status, possibly explained by acute metabolic encephalopathy and sepsis, improving Acute leukocytosis, secondary to above Thrombocytopenia, chronic Anemia of chronic disease, secondary to end-stage renal disease. Elevated troponins, suspect supply/demand mismatch. History of TAVR. History of hyperlipidemia. Obesity, with a BMI of 33.5 kg/m. Obstructive sleep apnea, with home BiPAP device. Former tobacco smoker. Plan: Neurologic function is unchanged MRI of the brain consistent with septic emboli to the brain Patient is currently on room air oxygen. May need O2 should there be any oxygen desaturation. Most recent chest x-ray shows stable findings without any acute abnormalities. continue IV nafcillin and infectious disease on the case. Regarding endocarditis, cardiothoracic surgery consultation will be also placed. Patient is post TAVR. Noted to follow-up blood cultures have been negative thus far. Hemodynamically stable Monitor motor function on the left side of the body. Hemodialysis per nephrology, next hemodialysis on Thursday Management of the warfarin related PT/INR monitoring from medicine. INR is at 3.0 Follow-up blood cultures are negative Prognosis poor based on above-mentioned findings. Carries a poor prognosis based on his comorbidities and presence of infective endocarditis involving the anterior leaflet of the mitral valve. Overall condition is stable and will continue to follow.
[2024-02-28 16:22] LABS: Glucose,Whole Blood 220 mg/dL (70-110)
[2024-02-28] MEDS: WARFARIN 1 MG TAB PO ONE (17:20)
[2024-02-28 20:04] LABS: Glucose,Whole Blood 300 mg/dL (70-110)
[2024-02-29 06:01] LABS: Glucose,Whole Blood 133 mg/dL (70-110)
--- NOTE | 2024-02-29 08:54 | P.PN ---
Subjective Progress Note Date: 02/29/24 Principal diagnosis: Infective endocarditis of the mitral valve, staphylococcus aureus sepsis, bacteremia, left-sided weakness, altered mental status, acute leukocytosis. History of severe aortic valve stenosis status post TAVR placement at [facility] 07/2023, ESRD hemodialysis on //, anemia of chronic disease, hypertension, hyperlipidemia, obesity, obstructive sleep apnea with home BiPAP device, COPD, previous tobacco dependence The patient was seen and examined this morning sitting up in bed on the cardiac stepdown unit in no acute distress. Denies pain or shortness of breath. Remains in controlled atrial fibrillation, hemodynamically stable. Blood cultures from February 18 and are negative, remains on IV nafcillin per infectious disease. Discussed the case with Dr. Terrazas, patient may potentially benefit from surgical intervention for mitral valve endocarditis although he would be extremely high risk for any surgical intervention, patient would need heart cath eterization to evaluate for coronary artery disease prior. Objective - Vital Signs Vital signs: Vital Signs Temp 98.7 F 02/28/24 23:25 Pulse 95 02/29/24 03:45 Resp 19 02/29/24 03:45 BP 149/74 02/29/24 03:45 Pulse Ox 99 02/29/24 03:45 FiO2 30 02/29/24 04:27 Intake & Output 02/28/24 02/29/24 02/29/24 18:59 06:59 18:59 Intake Total 118 Output Total 150 Balance 118 -150 Weight 105 kg Intake: Oral 118 Output: Urine 150 Other: Voiding Method Diaper Diaper External Catheter # Voids 0 # Bowel Movements 1 - Exam CONSTITUTIONAL: Appears comfortable, cooperative, no acute distress RESPIRATORY: Lungs sounds diminished bilaterally. Respirations even, nonlabored. Currently on 2 L nasal cannula with oxygen saturation 98% CARDIOVASCULAR: S1, S2 present, systolic murmur present. Irregular rate and rh ythm, controlled atrial fibrillation on telemetry. Palpable peripheral pulses bilaterally. No edema present. No calf pain or tenderness noted GASTROINTESTINAL: Abdomen soft, nontender, nondistended. Active bowel sounds present 4 quadrants. Tolerating diet. Positive bowel movement 02/27 GENITOURINARY: Continues to void INTEGUMENTARY: Skin is warm and dry with evidence of good perfusion. Anterior chest incision well approximated and covered with dry intact dressing. EVH site well approximated without redness or drainage. NEUROLOGIC: Cranial nerves II through XII intact, slow to respond but is completely oriented and following commands MUSKULOSKELETAL: Able to move all extremities, generalized weakness present, left greater than right PSYCHIATRIC: Alert and oriented to person place and time - Allied health notes Allied health notes reviewed: nursing - Labs CBC & Chem 7: 02/28/24 09:08 02/28/24 09:08 Labs: Abnormal Lab Results - Last 24 Hours (Table) 02/28/24 02/28/24 02/28/24 Range/Units 09:08 09:08 09:08 WBC 12.7 H (3.8-10.6) k/uL RBC 2.85 L (4.30-5.90) m/uL Hgb 8.6 L (13.0-17.5) gm/dL Hct 27.9 L (39.0-53.0) % Neutrophils # 10.6 H (1.3-7.7) k/uL Lymphocytes # 0.9 L (1.0-4.8) k/uL PT 29.3 H (10.0-12.5) sec INR 3.0 H (<1.2) Sodium 127 L (137-145) mmol/L Chloride 91 L (98-107) mmol/L BUN 75 H (9-20) mg/dL Creatinine 6.19 H (0.66-1.25) mg/dL Glucose 137 H (74-99) mg/dL POC Glucose (mg/dL) (70-110) mg/dL Calcium 7.4 L (8.4-10.2) mg/dL C-Reactive Protein 5.7 H (<1.0) mg/dL 02/28/24 02/28/24 02/28/24 Range/Units 11:36 16:19 20:02 WBC (3.8-10.6) k/uL RBC (4.30-5.90) m/uL Hgb (13.0-17.5) gm/dL Hct (39.0-53.0) % Neutrophils # (1.3-7.7) k/uL Lymphocytes # (1.0-4.8) k/uL PT (10.0-12.5) sec INR (<1.2) Sodium (137-145) mmol/L Chloride (98-107) mmol/L BUN (9-20) mg/dL Creatinine (0.66-1.25) mg/dL Glucose (74-99) mg/dL POC Glucose (mg/dL) 131 H 220 H 300 H (70-110) mg/dL Calcium (8.4-10.2) mg/dL C-Reactive Protein (<1.0) mg/dL 02/29/24 Range/Units 05:59 WBC (3.8-10.6) k/uL RBC (4.30-5.90) m/uL Hgb (13.0-17.5) gm/dL Hct (39.0-53.0) % Neutrophils # (1.3-7.7) k/uL Lymphocytes # (1.0-4.8) k/uL PT (10.0-12.5) sec INR (<1.2) Sodium (137-145) mmol/L Chloride (98-107) mmol/L BUN (9-20) mg/dL Creatinine (0.66-1.25) mg/dL Glucose (74-99) mg/dL POC Glucose (mg/dL) 133 H (70-110) mg/dL Calcium (8.4-10.2) mg/dL C-Reactive Protein (<1.0) mg/dL - Imaging and Cardiology TREY film reviewed with Dr. Terrazas Assessment and Plan Assessment: Infective endocarditis, large vegetation attached to the anterior mitral leaflet that is freely floating [id number] in the atria per transesophageal echocardiogram with mild to moderate mitral valve regurgitation Staphylococcus aureus sepsis, bacteremia blood cultures 02/18, 02/19 demonstrate no growth to date Left-sided weakness, CT of the brain shows no acute intracranial process, brain MRI demonstrates numerous peripheral and deep punctate diffusion hyperintensities compatible with acute ischemic changes likely from septic emboli Altered mental status Acute leukocytosis, likely secondary to above History of severe aortic valve stenosis, status post TAVR placement at [facility] 07/2023 End-stage renal disease, hemodialysis on Wednesdays and Fridays Anemia of chronic disease History of hypertension History of hyperlipidemia Obesity with a BMI of 33.2 kg/m Obstructive sleep apnea with home BiPAP device COPD Previous tobacco dependence Plan: Continue antibiotics per infectious disease A-fib management per cardiology Dialysis per nephrology Patient will need heart catheterization to evaluate for CAD prior to any surgical intervention Patient may benefit from angiovac vegetation debulking vs mitral valve replacement although any intervention would be extremely high risk Medical management of other comorbidities per internal medicine, cardiology, infectious disease, nephrology More recommendations to follow
[2024-02-29 09:50] LABS: Basophils # (A) 0.1 k/uL (0-0.2); Basophils % (A) 1 %; Eosinophils # (A) 0.2 k/uL (0-0.7); Eosinophils % (A) 1 %; HCT 27.2 % (39.0-53.0); HGB 8.3 gm/dL (13.0-17.5); Hypochromasia Slight; Lymphocytes # (A) 0.7 k/uL (1.0-4.8); Lymphocytes % (A) 5 %; MCHC 30.6 g/dL (31.0-37.0); MCV 101.2 fL (80.0-100.0); Macrocytosis Slight; Mean Platelet Volume 8.4; Monocytes # (A) 0.9 k/uL (0-1.0); Monocytes % (A) 7 %; Neutrophils % (A) 86 %; Platelet Count 209 k/uL (150-450); RBC 2.69 m/uL (4.30-5.90); RDW 15.2 % (11.5-15.5)
[2024-02-29 09:54] LABS: INR 2.2 (<1.2); Prothrombin Time 21.9 sec (10.0-12.5)
[2024-02-29 10:06] LABS: African American GFR (CKD) 8 (>60 ml/min/1.73 sqM); Anion Gap 15 mmol/L; Blood Urea Nitrogen 90 mg/dL (9-20); Calcium 7.4 mg/dL (8.4-10.2); Carbon Dioxide 22 mmol/L (22-30); Chloride 88 mmol/L (98-107); Glucose 103 mg/dL (74-99); Magnesium 2.1 mg/dL (1.6-2.3); Non-African American GFR(CKD) 7 (>60 ml/min/1.73 sqM); Potassium 5.1 mmol/L (3.5-5.1); Sodium 125 mmol/L (137-145)
--- NOTE | 2024-02-29 10:53 | P.PN ---
Subjective Patient is seen in follow-up for end-stage renal disease. He is maintained on hemodialysis on Thursday schedule. No chest pain or shortness of breath. Hemodynamically stable. Scheduled for dialysis today. Vital signs are stable. General: No acute distress. HEENT: Head exam is unremarkable. On nasal cannula. LUNGS: No audible rhonchi or wheezes. HEART: Rate and Rhythm are regular. ABDOMEN: Nontender. EXTREMITITES: No edema. Objective - Vital Signs Vital signs: Vital Signs Temp 98.5 F 02/29/24 08:10 Pulse 90 02/29/24 08:10 Resp 18 02/29/24 08:10 BP 133/70 02/29/24 08:10 Pulse Ox 97 02/29/24 08:10 FiO2 30 02/29/24 04:27 Intake & Output 02/28/24 02/29/24 02/29/24 18:59 06:59 18:59 Intake Total 118 Output Total 150 Balance 118 -150 Weight 105 kg Intake: Oral 118 Output: Urine 150 Other: Voiding Method Diaper Diaper Diaper External Catheter External Catheter # Voids 0 0 # Bowel Movements 1 - Labs CBC & Chem 7: 02/29/24 08:52 02/29/24 08:52 Labs: Abnormal Lab Results - Last 24 Hours (Table) 02/28/24 02/28/24 02/28/24 Range/Units 11:36 16:19 20:02 WBC (3.8-10.6) k/uL RBC (4.30-5.90) m/uL Hgb (13.0-17.5) gm/dL Hct (39.0-53.0) % MCV (80.0-100.0) fL MCHC (31.0-37.0) g/dL Neutrophils # (1.3-7.7) k/uL Lymphocytes # (1.0-4.8) k/uL PT (10.0-12.5) sec INR (<1.2) Sodium (137-145) mmol/L Chloride (98-107) mmol/L BUN (9-20) mg/dL Creatinine (0.66-1.25) mg/dL Glucose (74-99) mg/dL POC Glucose (mg/dL) 131 H 220 H 300 H (70-110) mg/dL Calcium (8.4-10.2) mg/dL 02/29/24 02/29/24 02/29/24 Range/Units 05:59 08:52 08:52 WBC 14.0 H (3.8-10.6) k/uL RBC 2.69 L (4.30-5.90) m/uL Hgb 8.3 L (13.0-17.5) gm/dL Hct 27.2 L (39.0-53.0) % MCV 101.2 H (80.0-100.0) fL MCHC 30.6 L (31.0-37.0) g/dL Neutrophils # 12.0 H (1.3-7.7) k/uL Lymphocytes # 0.7 L (1.0-4.8) k/uL PT 21.9 H (10.0-12.5) sec INR 2.2 H (<1.2) Sodium (137-145) mmol/L Chloride (98-107) mmol/L BUN (9-20) mg/dL Creatinine (0.66-1.25) mg/dL Glucose (74-99) mg/dL POC Glucose (mg/dL) 133 H (70-110) mg/dL Calcium (8.4-10.2) mg/dL 02/29/24 Range/Units 08:52 WBC (3.8-10.6) k/uL RBC (4.30-5.90) m/uL Hgb (13.0-17.5) gm/dL Hct (39.0-53.0) % MCV (80.0-100.0) fL MCHC (31.0-37.0) g/dL Neutrophils # (1.3-7.7) k/uL Lymphocytes # (1.0-4.8) k/uL PT (10.0-12.5) sec INR (<1.2) Sodium 125 L (137-145) mmol/L Chloride 88 L (98-107) mmol/L BUN 90 H (9-20) mg/dL Creatinine 7.22 H* (0.66-1.25) mg/dL Glucose 103 H (74-99) mg/dL POC Glucose (mg/dL) (70-110) mg/dL Calcium 7.4 L (8.4-10.2) mg/dL Assessment and Plan Plan: Assessment: 1. End-stage renal disease maintained on hemodialysis on Thursday schedule. 2. A-fib with RVR status post Cardizem drip. On Lopressor. 3. Diabetes mellitus. 4. MSSA bacteremia on antibiotics. ID following. TREY showed a large vegetation on the mitral valve. CTS following. Septic emboli noted on MRI. No surgical intervention planned at this time due to being high risk. Cardiac cath being considered. 5. Hyperphosphatemia secondary to chronic kidney disease. Phosphorus level 7.2 dated February 23, 2024. On PhosLo. 6. Anemia of chronic kidney disease. On Aranesp. 7. Hyponatremia secondary to chronic kidney disease. Expect improvement postdialysis. Plan: Hemodialysis today. Maintain torsemide.
[2024-02-29 11:55] LABS: Glucose,Whole Blood 191 mg/dL (70-110)
[2024-02-29] MEDS: ONDANSETRON 4 MG/2 ML VIAL IVP PRN (12:43)
--- NOTE | 2024-02-29 12:55 | P.PN ---
Subjective Progress Note Date: 02/29/24 HISTORY OF PRESENT ILLNESS: This is a 78-year-old female with a past medical history significant for end- stage renal disease on hemodialysis, obstructive sleep apnea with CPAP use, hypertension, hyperlipidemia, diabetes, atrial flutter/fibrillation. Patient does not follow with a bundle collector locally. He follows with a physician at [facility]. We have been asked to see the patient in consultation for AF with RVR. Patient examined at the bedside in the ER. Patient was found to be septic and workup is ongoing per primary medicine. Patient was found to be in atrial fibrillation/flutter with RVR. Patient was placed on IV Cardizem which has since been discontinued. His rates are controlled at the time of examination. He is currently undergoing hemodialysis. Patient was placed on IV heparin. His Co umadin has not been resumed. DIAGNOSTICS: - EKG reveals atrial flutter with RVR. Left BBB - Chest xray cardiomegaly, pulmonary vascular congestion and bilateral pleural effusions - Laboratory data: BC 17.4. Hemoglobin 9.8. Platelet count 92. INR 1.9. Sodium 136. Potassium 3.5. BUN 87. Creatinine 4.79. Troponin 0.276 - Current home cardiac medications include Lovastatin 10 mg daily and Coumadin 2.5mg daily 02/18/2024 Patient examined this morning at the bedside. Currently denies chest pain or pressure. He denies shortness of breath. Telemetry reveals sinus mechanism. Patient's Coumadin has been placed on hold secondary to drop in hemoglobin. Hemoglobin this morning is improved at 9.3. Echocardiogram completed revealing ejection fraction 40 to 45%, false tendon seen in LV, mild MR, TAVR valve without stenosis, mild to moderate perivalvular aortic regurgitation, mild tricuspid regurgitation. 02/22 Cardiology signed off this case on [id number] but we have been asked to reassess the p atient for TREY due to bacteremia. Patient has been maintained on IV cefazolin. Patient is currently on BiPAP, blood pressure 132/73, heart rate 63. Repeat blood work reveals WBC 15.5, hemoglobin 8, INR is 3.9. 02/23 Blood pressure 125/66, heart rate 75, pulse ox 95% on room air. Patient is on BiPAP when sleeping or at nighttime. He has been afebrile. His mental status is slow to respond which apparently has been going on for several days. CAT scan of the brain last evening revealed no acute intracranial process. Patient is maintained on hemodialysis per nephrology. Hemoglobin 8, WBC 17.8. INR 3.3. Sodium 131, potassium 4.2, BUN 100 creatinine 7.15. 02/24 Patient will be scheduled for a TREY tomorrow with Dr. Judy Diaz. 02/26 Yesterday, patient underwent TREY with Dr. Judy Diaz which revealed large vegetation on the mitral valve, mild to moderate mitral regurgitation. Tricuspid has mild tricuspid regurgitation. Bioprosthetic valve in aortic position with mild aortic regurgitation. Left atrium mildly enlarged. Right atrium and right ventricle within normal limits. Aortic root does not appear enlarged. No evidence of left to right shunt. A consult was added for cardiothoracic surgery. Patient has been maintained on IV antibiotics managed by Dr. Butler. Blood pressure 130/54, heart rate 78, pulse ox 96% on room air. INR 6.6. Yesterday, during dialysis, patient had episode of atrial flutter 2:1 at 150 bpm. Patient updated re findings on TREY. 02/27 Blood pressure 136/65, heart rate 79, pulse ox 100% on room air. Lopressor was increased yesterday due to a flutter. Repeat blood work reveals hemoglobin of 8.6. INR 3. Sodium 127, potassium 4.7, BUN 75 creatinine 6.19. Consult was added with vascular surgery regarding left upper extremity AV fistula dysfunction. Duplex fistula appears patent. 02/28 Patient is continued on IV nafcillin managed by Dr. Butler. Repeat cultures obtained on 02/18 and 02/19 are showing no growth. Patient is followed by cardiothoracic surgery as well. Blood pressure 149/74, heart rate 75, pulse ox 99% on 2 L nasal cannula. Patient does use a BiPAP when sleeping. Patient is scheduled for hemodialysis today and has been maintained on his Thursday schedule. Pharmacy is dosing Coumadin. Laboratory reports not available at the time of this dictation ASSESSMENT: Sepsis with MSSA bacteremia secondary to endocarditis with large vegetation on the anterior leaflet of the mitral valve, vegetation not seen on the bioprosthetic valve Atrial fibrillation with RVR, paroxysmal, on Coumadin Atrial flutter w RVR episode while on HD Left bundle branch block End-stage renal disease on hemodialysis Abnormal troponin, likely secondary to CKD Anemia of chronic disease Hypertension Hyperlipidemia Diabetes Obstructive sleep apnea with CPAP use History of TAVR, July 2023, [facility] PLAN: Continue sepsis treatment per Dr. Butler Continue cardiac medications: Atorvastatin, Lasix, Lopressor, Coumadin-pharmacy dosing Continue Lopressor 50 mg bid Further recommendations pending patient course Nurse practitioner note has been reviewed by physician. Signing provider agrees with the documented findings, assessment, and plan of care documented by [employer] as a scribe. Objective - Vital Signs Vital signs: Vital Signs Temp 98.7 F 02/28/24 23:25 Pulse 95 02/29/24 03:45 Resp 19 02/29/24 03:45 BP 149/74 02/29/24 03:45 Pulse Ox 99 02/29/24 03:45 FiO2 30 02/29/24 04:27 Intake & Output 02/28/24 02/29/24 02/29/24 18:59 06:59 18:59 Intake Total 118 Output Total 150 Balance 118 -150 Weight 105 kg Intake: Oral 118 Output: Urine 150 Other: Voiding Method Diaper Diaper External Catheter # Voids 0 # Bowel Movements 1 - Labs CBC & Chem 7: 02/29/24 08:52 02/29/24 08:52 Labs: Abnormal Lab Results - Last 24 Hours (Table) 02/28/24 02/28/24 02/28/24 Range/Units 09:08 09:08 09:08 WBC 12.7 H (3.8-10.6) k/uL RBC 2.85 L (4.30-5.90) m/uL Hgb 8.6 L (13.0-17.5) gm/dL Hct 27.9 L (39.0-53.0) % Neutrophils # 10.6 H (1.3-7.7) k/uL Lymphocytes # 0.9 L (1.0-4.8) k/uL PT 29.3 H (10.0-12.5) sec INR 3.0 H (<1.2) Sodium 127 L (137-145) mmol/L Chloride 91 L (98-107) mmol/L BUN 75 H (9-20) mg/dL Creatinine 6.19 H (0.66-1.25) mg/dL Glucose 137 H (74-99) mg/dL POC Glucose (mg/dL) (70-110) mg/dL Calcium 7.4 L (8.4-10.2) mg/dL C-Reactive Protein 5.7 H (<1.0) mg/dL 02/28/24 02/28/24 02/28/24 Range/Units 11:36 16:19 20:02 WBC (3.8-10.6) k/uL RBC (4.30-5.90) m/uL Hgb (13.0-17.5) gm/dL Hct (39.0-53.0) % Neutrophils # (1.3-7.7) k/uL Lymphocytes # (1.0-4.8) k/uL PT (10.0-12.5) sec INR (<1.2) Sodium (137-145) mmol/L Chloride (98-107) mmol/L BUN (9-20) mg/dL Creatinine (0.66-1.25) mg/dL Glucose (74-99) mg/dL POC Glucose (mg/dL) 131 H 220 H 300 H (70-110) mg/dL Calcium (8.4-10.2) mg/dL C-Reactive Protein (<1.0) mg/dL 02/29/24 Range/Units 05:59 WBC (3.8-10.6) k/uL RBC (4.30-5.90) m/uL Hgb (13.0-17.5) gm/dL Hct (39.0-53.0) % Neutrophils # (1.3-7.7) k/uL Lymphocytes # (1.0-4.8) k/uL PT (10.0-12.5) sec INR (<1.2) Sodium (137-145) mmol/L Chloride (98-107) mmol/L BUN (9-20) mg/dL Creatinine (0.66-1.25) mg/dL Glucose (74-99) mg/dL POC Glucose (mg/dL) 133 H (70-110) mg/dL Calcium (8.4-10.2) mg/dL C-Reactive Protein (<1.0) mg/dL
--- NOTE | 2024-02-29 13:34 | P.PN ---
Subjective Progress Note Date: 02/29/24 Principal diagnosis: Possible left upper extremity arteriovenous fistula dysfunction. Since examination yesterday the patient has undergone a duplex imaging of the fistula. Fistula appears to be normally functional without evidence of thrombus. As long as there are no further issues I would not recommend any intervention at this time. Objective - Vital Signs Vital signs: Vital Signs Temp 98.5 F 02/29/24 08:10 Pulse 90 02/29/24 08:10 Resp 18 02/29/24 08:10 BP 133/70 02/29/24 08:10 Pulse Ox 97 02/29/24 08:10 FiO2 30 02/29/24 04:27 Intake & Output 02/28/24 02/29/24 02/29/24 18:59 06:59 18:59 Intake Total 118 Output Total 150 Balance 118 -150 Weight 105 kg Intake: Oral 118 Output: Urine 150 Other: Voiding Method Diaper Diaper Diaper External Catheter External Catheter # Voids 0 0 # Bowel Movements 1 - Labs CBC & Chem 7: 02/29/24 08:52 02/29/24 08:52 Labs: Abnormal Lab Results - Last 24 Hours (Table) 02/28/24 02/28/24 02/29/24 Range/Units 16:19 20:02 05:59 WBC (3.8-10.6) k/uL RBC (4.30-5.90) m/uL Hgb (13.0-17.5) gm/dL Hct (39.0-53.0) % MCV (80.0-100.0) fL MCHC (31.0-37.0) g/dL Neutrophils # (1.3-7.7) k/uL Lymphocytes # (1.0-4.8) k/uL PT (10.0-12.5) sec INR (<1.2) Sodium (137-145) mmol/L Chloride (98-107) mmol/L BUN (9-20) mg/dL Creatinine (0.66-1.25) mg/dL Glucose (74-99) mg/dL POC Glucose (mg/dL) 220 H 300 H 133 H (70-110) mg/dL Calcium (8.4-10.2) mg/dL 02/29/24 02/29/24 02/29/24 Range/Units 08:52 08:52 08:52 WBC 14.0 H (3.8-10.6) k/uL RBC 2.69 L (4.30-5.90) m/uL Hgb 8.3 L (13.0-17.5) gm/dL Hct 27.2 L (39.0-53.0) % MCV 101.2 H (80.0-100.0) fL MCHC 30.6 L (31.0-37.0) g/dL Neutrophils # 12.0 H (1.3-7.7) k/uL Lymphocytes # 0.7 L (1.0-4.8) k/uL PT 21.9 H (10.0-12.5) sec INR 2.2 H (<1.2) Sodium 125 L (137-145) mmol/L Chloride 88 L (98-107) mmol/L BUN 90 H (9-20) mg/dL Creatinine 7.22 H* (0.66-1.25) mg/dL Glucose 103 H (74-99) mg/dL POC Glucose (mg/dL) (70-110) mg/dL Calcium 7.4 L (8.4-10.2) mg/dL 02/29/24 Range/Units 11:53 WBC (3.8-10.6) k/uL RBC (4.30-5.90) m/uL Hgb (13.0-17.5) gm/dL Hct (39.0-53.0) % MCV (80.0-100.0) fL MCHC (31.0-37.0) g/dL Neutrophils # (1.3-7.7) k/uL Lymphocytes # (1.0-4.8) k/uL PT (10.0-12.5) sec INR (<1.2) Sodium (137-145) mmol/L Chloride (98-107) mmol/L BUN (9-20) mg/dL Creatinine (0.66-1.25) mg/dL Glucose (74-99) mg/dL POC Glucose (mg/dL) 191 H (70-110) mg/dL Calcium (8.4-10.2) mg/dL Assessment and Plan Assessment: Possible left upper extremity AV dialysis graft dysfunction. Plan: Since the fistula appears to be normally functional will sign off. However we would be happy to reevaluate at your request. Time with Patient: Less than 30
--- NOTE | 2024-02-29 14:06 | P.PN ---
Subjective Progress Note Date: 02/29/24 Hospital Course: Patient is a 78-year-old male with with known diabetes, atrial fibrillation anticoagulated with Coumadin, prior aortic valve replacement, dyslipidemia, end- stage renal disease on hemodialysis Thursday/Thursday/Thursday, and BPH who presented to the emergency department due to confusion and weakness. He had previously been to [facility] where he was noted to have a fever and elevated heart rate he was then discharged from the emergency department. When he went to go to dialysis they terminated after 1 hour due to a fever. On arrival to the emergency department he was noted to be febrile to 104.1 with a heart rate of 140. Initial laboratory analysis was remarkable for white blood cell count 19.4, platelets 131, lactic acid 2.6, troponin 0.12, and renal function consistent with his known dialysis. Influenza A/B/RSV/COVID-19 testing was negative. Initial chest x-ray demonstrated pulmonary vascular congestion. Patient was admitted for sepsis of unknown etiology and A-fib with RVR. He was to started on vancomycin and cefepime as well as a Cardizem drip. Critical care and cardiology were consulted. Echocardiogram was performed which demonstrated ejection fraction of 40 to 45% with mild to moderate perivalvular leak of his aortic valve replacement. Vascular surgery was consulted as his dialysis access is not working. And on 02/15 he underwent left upper extremity fistulogram with transluminal ballooning and thrombolysis at proximal aspect of graft. He then underwent hemodialysis and became slightly hypotensive requiring initiation of norepinephrine. He was subsequently transferred to the ICU. He had melanic stools. His hemoglobin stabilized and he had a recent outpatient colonoscopy without active bleeding. Blood cultures came back positive for M SSA. Currently on cefazolin. Patient does have a history of bioprosthetic aortic valve, TREY is pending. There was concern for possible aspiration. Speech therapy was consulted. 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 This can be advanced once mentation improves. Due to worsening mentation, CT head was ordered which was negative for any acute process. Mentation improved. Subjective: Patient seen and examined at bedside. COntinues to be encephalopathic. Left sided deficits are present Vitals Signs Reviewed. General: Nontoxic, no distress, appears at stated age Derm: Warm, dry Head: Atraumatic, normocephalic, symmetric Eyes: EOMI, no lid lag, anicteric sclera Mouth: No lip lesion, mucus membranes moist Cardiovascular: S1S2 reg, no murmur Lungs: CTA bilateral, no rhonchi, no rales, no accessory muscle use Abdominal: Soft, nontender to palpation, no guarding, no appreciable organomegaly Ext: No gross muscle atrophy, trace peripheral edema, no contractures Neuro: CN II-XI grossly intact, left motor weakness > right motor weakness Psych: Alert, oriented x 3, appropriate affect Data Reviewed Today: Pertinent Labs: WBC 17.1, hemoglobin 8.1, INR 3.3, creatinine 5.25, sodium 131, blood glucose range between 10 2-1 70, magnesium 2.1 Imaging: No acute imaging Assessment and Plan: MSSA bacteremia with sepsis Infective Endocarditis of the Mitral Valve -Abx: Nafcillin 2 g every 4 hours -Patient's last cultures done on 02/17/2024 are positive -Blood cultures from 02/19/2024 are negative to date -Infectious disease following, -TREY reviewed: large free floating vegetation of the mitral valve anterior leaflet -cardiology consult appreciated -CT surgery consulted, discussed with them again today, no class I indication for surgery at this time, they will continue to follow -consider placing PICC line (clear with nephrology) and discharging to SNF for abx if no surgical plan is in place. End-stage renal disease on hemodialysis Thursday/Thursday/Thursday Malfunction AV graft- s/p angioplasty/thrombolysis of left subclavian vein -Nephrology note reviewed, continue PhosLo with meals, and torsemide 40 mg daily - Vascular now signed off Acute metabolic encephalopathy, resolved -CT head negative for any acute process. Repeat on 02/25 also negative -MR brain ordered, pending -Possible hypoactive delirium in the setting of acute illness -TSH normal, B12 level pending -Delirium precautions Melena, possible lower GI bleed resolved Normocytic anemia, probable acute blood loss with chronic renal disease and dialysis -Hemoglobin currently stable - GI was previously consulted, continue with Protonix for GI prophylaxis, diet as tolerated, recent colonoscopy with no active bleeding but positive occult stool. No plans for repeat endoscopic evaluation. - no indication for transfusion -Patient is on Coumadin pharmacy to dose, currently supratherapeutic Acute exacerbation of systolic congestive heart failure with ejection fraction 40 to 45% Atrial fibrillation with rapid ventricular response anticoagulated with coumadin Supratherapeutic INR Type II non-STEMI Dyslipidemia History of TAVR -Cardiology following, continue on Coumadin, pharmacy to dose -Lipitor 10 mg at night -Metoprolol 25 mg oral 3 times daily Thrombocytopenia, resolved Diabetes mellitus type 2 with hyperglycemia -At home patient takes Lantus 45 units at night and Alogliptin -A1c 8.8 -Continue Levemir 24 units at night, fixed dose NovoLog 2 units with each meal and continue with sliding scale insulin, monitor for hypoglycemia DVT prophylaxis: Coumadin Anticipated discharge date: Pending clinical course Anticipated discharge place: Pending clinical course Objective - Vital Signs Vital signs: Vital Signs Temp 98.5 F 02/29/24 08:10 Pulse 90 02/29/24 08:10 Resp 18 02/29/24 08:10 BP 133/70 02/29/24 08:10 Pulse Ox 97 02/29/24 08:10 FiO2 30 02/29/24 04:27 Intake & Output 02/28/24 02/29/24 02/29/24 18:59 06:59 18:59 Intake Total 118 Output Total 150 Balance 118 -150 Weight 105 kg Intake: Oral 118 Output: Urine 150 Other: Voiding Method Diaper Diaper Diaper External Catheter External Catheter # Voids 0 0 # Bowel Movements 1 - Labs CBC & Chem 7: 02/29/24 08:52 02/29/24 08:52 Labs: Abnormal Lab Results - Last 24 Hours (Table) 02/28/24 02/28/24 02/29/24 Range/Units 16:19 20:02 05:59 WBC (3.8-10.6) k/uL RBC (4.30-5.90) m/uL Hgb (13.0-17.5) gm/dL Hct (39.0-53.0) % MCV (80.0-100.0) fL MCHC (31.0-37.0) g/dL Neutrophils # (1.3-7.7) k/uL Lymphocytes # (1.0-4.8) k/uL PT (10.0-12.5) sec INR (<1.2) Sodium (137-145) mmol/L Chloride (98-107) mmol/L BUN (9-20) mg/dL Creatinine (0.66-1.25) mg/dL Glucose (74-99) mg/dL POC Glucose (mg/dL) 220 H 300 H 133 H (70-110) mg/dL Calcium (8.4-10.2) mg/dL 02/29/24 02/29/24 02/29/24 Range/Units 08:52 08:52 08:52 WBC 14.0 H (3.8-10.6) k/uL RBC 2.69 L (4.30-5.90) m/uL Hgb 8.3 L (13.0-17.5) gm/dL Hct 27.2 L (39.0-53.0) % MCV 101.2 H (80.0-100.0) fL MCHC 30.6 L (31.0-37.0) g/dL Neutrophils # 12.0 H (1.3-7.7) k/uL Lymphocytes # 0.7 L (1.0-4.8) k/uL PT 21.9 H (10.0-12.5) sec INR 2.2 H (<1.2) Sodium 125 L (137-145) mmol/L Chloride 88 L (98-107) mmol/L BUN 90 H (9-20) mg/dL Creatinine 7.22 H* (0.66-1.25) mg/dL Glucose 103 H (74-99) mg/dL POC Glucose (mg/dL) (70-110) mg/dL Calcium 7.4 L (8.4-10.2) mg/dL 02/29/24 Range/Units 11:53 WBC (3.8-10.6) k/uL RBC (4.30-5.90) m/uL Hgb (13.0-17.5) gm/dL Hct (39.0-53.0) % MCV (80.0-100.0) fL MCHC (31.0-37.0) g/dL Neutrophils # (1.3-7.7) k/uL Lymphocytes # (1.0-4.8) k/uL PT (10.0-12.5) sec INR (<1.2) Sodium (137-145) mmol/L Chloride (98-107) mmol/L BUN (9-20) mg/dL Creatinine (0.66-1.25) mg/dL Glucose (74-99) mg/dL POC Glucose (mg/dL) 191 H (70-110) mg/dL Calcium (8.4-10.2) mg/dL
--- NOTE | 2024-02-29 14:32 | P.PN ---
Subjective Progress Note Date: 02/29/24 On today's evaluation of 02/22/2024, seen the patient for a follow-up. The patient is currently undergoing hemodialysis and is resting comfortably in bed while awaiting a BiPAP at a pressure of 10/5 with an FiO2 of 30%. No significant respiratory distress at this point in time. Noted the patient had staphylococcal bacteremia/MSSA and the patient is currently on IV cefazolin. Pulse ox is in the order of 94% while wearing the BiPAP. No labs are available from today. Yesterday's labs were noted. The white cell count at 13.7 with a hemoglobin of 8.1 and a platelet count of 140. The most recent chest x-ray from 02/18/2024 showed cardiomegaly and mild pulm vascular congestion. No evidence of any consolidation or airspace disease. Echocardiogram on 02/16/2024 showed left- ventricular ejection fraction of 40 to 45%, global hypokinesis, moderately decreased LV function, the aortic valve had some mild to moderate para valvular leak otherwise, no other significant valvular abnormalities noted. The patient is otherwise calm and comfortable. His comorbid conditions include end-stage renal disease on hemodialysis 3 times a week and the patient has a malfunctioning AV graft and the patient is status post angioplasty and thrombolysis of the left subclavian vein. Nephrology on the case. Vascular surgery is also on the case. Hemoglobin is stable for now and there is no evidence of any GI bleeding. The patient has been anticoagulated regarding chronic atrial fibrillation. The patient has hyperlipidemia, diabetes mellitus type 2 as comorbid conditions. The patient is post TAVR procedure with some mild to moderate aortic valvular leak. 02/23/2024, the patient is being seen for a follow-up. This patient is 78 and the patient has MSSA septicemia currently on IV cefazolin. The most recent follow-up blood cultures from [facility] on 02/20/2024 were negative. The patient remains hemodynamically stable. On today's blood work, there is a white cell count of 15.5 with a hemoglobin of 8 and a platelet count of 211. The sodium level is 132, BUN 77 creatinine 5.38 and a potassium level is at 3.9. INR is currently at 3.9. Patient remains on IV cefazolin. The patient is on Levemir insulin 24 units at bedtime along with NovoLog 2 units with meals + scale coverage. Remains on Demadex 40 mg p.o. daily. Remains on Flomax. The CAT scan of the brain was done today and showed no acute abnormalities and there was some nonspecific white matter changes likely secondary to chronic small vessel ischemic disease. At the same time, a chest x-ray was repeated today and shows essentially stable findings with some calcification along the pleural surface and the right and mild pulm vessel congestion without any significant interval changes compared to the earlier chest x-ray. Respiratory status is stable. The patient is currently off the BiPAP initially at 2 L and subsequently out of her oxygen with a pulse ox of 96%. The patient is also being seen by infectious disease. TREY has been ordered. The patient is being seen by nephrology. Regarding his end-stage renal disease and the patient is undergoing hemodialysis MWF. No problems with dialysis and his last dialysis session was done yesterday. No reported shortness of breath at this point in time. His MSSA bacteremia is still being investigated and the patient is being considered for a TREY. On today's evaluation of 02/24/2024, the patient is essentially unchanged. Calm and comfortable, resting comfortably in bed. No significant respiratory distress. He remains on oxygen on room air with a pulse ox of 95%. No cough. No sputum production. No chest tightness. No wheezing. Obese, 17.8 with a hemoglobin of 8 and a platelet count of 236. BUN is 100 and the creatinine is at 7.1 and a sodium levels at 131. The patient has end-stage renal disease and the patient undergoes hemodialysis 3 times a week and he is scheduled to undergo hemodialysis today. Afebrile. Remains on IV cefazolin. Repeated blood culture s from 03/03/2024 on 02/20/2024 were negative. On 02/25/2024, seen the patient for a follow-up. Resting comfortably in bed on room air oxygen. No respiratory distress. Last hemodialysis session was y . No chest pain. No shortness of breath. Hemodynamically stable. White cell count at 17 with a hemoglobin 8.1. INR is at 3.3. BUN 67 with a creatinine of 5.25 and a potassium level of 3.9. Afebrile for now. Repeat blood cultures have been negative thus far. Patient is being seen for a follow-up. Unfortunately, the TREY that was completed today showed evidence of infective endocarditis. The patient had a large vegetation noted over the anterior mitral valve leaflet consistent with diagnosis of infective endocarditis. The patient has a bioprosthetic aortic valve also. Note that he remains quite lethargic. He is awake alert and communicating. Weakness was noted in the left upper and left lower extremity and this has evolved over the past 24 to 48 hours. Septic emboli to the brain was suspected. Based on that, CAT scan of the brain was done and showed no evidence of any acute intracranial process and there was some nonspecific white matter changes likely secondary to chronic small vessel ischemic changes. Antibiotics has been switched to nafcillin. The repeat blood cultures from 02/19/2024 and 02/20/2024 were negative. White cell count is 16.7 with a hemoglobin of 8.4 and a platelet count of 227. INR is at 4.7. BUN is 94 with a creatinine of 7.05 and sodium is at 130 with a potassium level of 5.0. Consultation was placed for cardiothoracic surgery regarding the endocarditis. The patient undergoes hemodialysis 3 times a week. No significant shortness of breath. This morning, he was on room air with a pulse ox of 99%. No hypotension. No cardiac arrhythmias noted. 02/27/2024, the patient is being seen for a follow-up. He is currently on room air oxygen. Resting comfortably in bed. Considerable weakness in the left upper and left lower extremity. Remains on IV nafcillin. The patient is clinically and hemodynamically stable. As mentioned, the patient had a large vegetation involving the anterior mitral leaflet and a TREY it was done on . CAT scan of the brain showed no acute abnormalities. The patient denies having any shortness of breath. No chest pain. He remains on anticoagulation with warfarin and the PT/INR is supratherapeutic and this is being managed by the medical team. No other significant issues otherwise. No skin rashes. No hematuria. Very much weak and debilitated. 02/28/2024, patient is being seen for a follow-up. Yet arousable. Follows simple commands. Left-sided weakness is obvious. MRI of the brain was also done and showed no evidence bilateral numerous peripheral and deep punctate diffusion hyperintensities correlating with c his history of infective endocarditis and ischemic changes related to septic embolism. Hemodynamically stable on IV nafcillin. Remains anticoagulated with warfarin. Remains on Demadex. No respiratory distress. Remains on room air oxygen. Afebrile. Blood cultures are negative. WBC is at 12.7 with a hemoglobin 8.6, INR is at 3.0, sodium is at 127, BUN 75 with a creatinine of 6.1. Patient was seen by nephrology. The plan is to undergo dialysis on Thursday. In terms of the atrial fibrillation, rate is controlled and the patient is on Lopressor for rate control and the patient is also on anticoagulation with warfarin. On 02/29/2024, the patient is clinically unchanged. He is following commands and answering questions. Nevertheless, his response is quite delayed. He does have septic emboli to the brain and the patient has mitral valve endocarditis and the patient remains on the nafcillin. Other complaints otherwise for now. Nephrology on the case and the patient is undergoing scheduled dialysis. He remains on torsemide. He is on PhosLo. Blood work shows a white cell count of 14, hemoglobin 8.3 and a platelet count of 209. INR is at 2.2. BUN is at 90 7.2. Sodium is 125 and a Potassium Level Is at 5.1. Patient Is Undergoing Hemo dialysis MWF. No Shortness of Breath. No Cardiac Arrhythmias. Repeat Blood Cultures Were Negative. Remains on IV Nafcillin. Cardiothoracic Surgery Is on the Case. Objective - Vital Signs Vital signs: Vital Signs Temp 98.5 F 02/29/24 08:10 Pulse 90 02/29/24 08:10 Resp 18 02/29/24 08:10 BP 133/70 02/29/24 08:10 Pulse Ox 97 02/29/24 08:10 FiO2 30 02/29/24 04:27 Intake & Output 02/28/24 02/29/24 02/29/24 18:59 06:59 18:59 Intake Total 118 Output Total 150 Balance 118 -150 Weight 105 kg Intake: Oral 118 Output: Urine 150 Other: Voiding Method Diaper Diaper Diaper External Catheter External Catheter # Voids 0 0 # Bowel Movements 1 - Exam No acute distress, oriented 3. The patient is currently on room air oxygen. head exam was generally normal. There was no scleral icterus or corneal arcus. Mucous membranes were moist. HEENT examination is grossly unremarkable. Mucous membranes are moist. No oral lesions. Neck supple. Full range of motion. No adenopathy thyromegaly or neck vein distention. Cardiovascular examination reveals regular rhythm rate. S1-S2 normal. Harsh murmur could be appreciated over the left lateral sternal border and apex along with a gallop rhythm. Lungs reveal mild bibasilar crackles. No wheezes or rhonchi. Breath sounds are equal bilaterally. Abdomen soft bowel sounds are heard. No masses or tenderness. Extremities are intact. No cyanosis clubbing or edema. Skin is without rash or lesion. Neurologic examination reveals motor weakness on the left upper and left lower extremity. The patient has profound generalized global weakness. There is obvious asymmetry in the motor function with weakness in the left lower extremity and left upper extremity on today's examination. No Babinski. No clonus. No cranial nerve deficits. - Labs CBC & Chem 7: 02/29/24 08:52 02/29/24 08:52 Labs: Abnormal Lab Results - Last 24 Hours (Table) 02/28/24 02/28/24 02/29/24 Range/Units 16:19 20:02 05:59 WBC (3.8-10.6) k/uL RBC (4.30-5.90) m/uL Hgb (13.0-17.5) gm/dL Hct (39.0-53.0) % MCV (80.0-100.0) fL MCHC (31.0-37.0) g/dL Neutrophils # (1.3-7.7) k/uL Lymphocytes # (1.0-4.8) k/uL PT (10.0-12.5) sec INR (<1.2) Sodium (137-145) mmol/L Chloride (98-107) mmol/L BUN (9-20) mg/dL Creatinine (0.66-1.25) mg/dL Glucose (74-99) mg/dL POC Glucose (mg/dL) 220 H 300 H 133 H (70-110) mg/dL Calcium (8.4-10.2) mg/dL 02/29/24 02/29/24 02/29/24 Range/Units 08:52 08:52 08:52 WBC 14.0 H (3.8-10.6) k/uL RBC 2.69 L (4.30-5.90) m/uL Hgb 8.3 L (13.0-17.5) gm/dL Hct 27.2 L (39.0-53.0) % MCV 101.2 H (80.0-100.0) fL MCHC 30.6 L (31.0-37.0) g/dL Neutrophils # 12.0 H (1.3-7.7) k/uL Lymphocytes # 0.7 L (1.0-4.8) k/uL PT 21.9 H (10.0-12.5) sec INR 2.2 H (<1.2) Sodium 125 L (137-145) mmol/L Chloride 88 L (98-107) mmol/L BUN 90 H (9-20) mg/dL Creatinine 7.22 H* (0.66-1.25) mg/dL Glucose 103 H (74-99) mg/dL POC Glucose (mg/dL) (70-110) mg/dL Calcium 7.4 L (8.4-10.2) mg/dL 02/29/24 Range/Units 11:53 WBC (3.8-10.6) k/uL RBC (4.30-5.90) m/uL Hgb (13.0-17.5) gm/dL Hct (39.0-53.0) % MCV (80.0-100.0) fL MCHC (31.0-37.0) g/dL Neutrophils # (1.3-7.7) k/uL Lymphocytes # (1.0-4.8) k/uL PT (10.0-12.5) sec INR (<1.2) Sodium (137-145) mmol/L Chloride (98-107) mmol/L BUN (9-20) mg/dL Creatinine (0.66-1.25) mg/dL Glucose (74-99) mg/dL POC Glucose (mg/dL) 191 H (70-110) mg/dL Calcium (8.4-10.2) mg/dL Assessment and Plan Plan: Acute hypoxemic respiratory failure, likely secondary to a combination of fluid overload and acute systolic CHF exacerbation. Currently on room air oxygen and clinically improved End-stage renal disease, receiving hemodialysis on a Thursday, Thursday, Thursday schedule. The patient apparently had a nonfunctioning AV fistula, and, the patient was to undergo a left upper extremity fistulogram, with ultrasound- guided access, PTBA, and thrombolysis. Subsequent to the graft working. The hemodialysis is undergoing scheduled hemodialysis under the care of nephrology. Atrial fibrillation with rapid ventricular response, rate is under adequate control for now, PT/INR is therapeutic Staph aureus sepsis and the patient presented with bacteremia and sepsis, secondary to methicillin sensitive Staphylococcus aureus. The patient remains on IV nafcillin. No indication of any endocarditis based on the transthoracic echocardiogram. The patient is currently on IV nafcillin. Infective endocarditis with large vegetation involving the anterior leaflet of the mitral valve. Please refer to the results of the TREY. Follow-up blood cultures from 02/19/2024 and 02/20/2024 are negative the patient is currently on IV nafcillin. Patient has evidence of septic emboli and multiple areas of ischemic changes based on MRI findings. Diminished level of consciousness along with left sided weakness, rule out septic emboli to the brain. Rule out CVA. Patient had a CAT scan of the brain that showed no acute abnormalities. The MRI of the the brain is consistent with septic embolism. Overall mental status is improved and the patient is delayed i n his response. Yet appropriate. History of TAVR with aortic valve replacement with mild to moderate aortic valvular leak Hypotension and shock, recovered and the patient is hemodynamically stable Acute febrile illness, currently afebrile Altered mental status, possibly explained by acute metabolic encephalopathy and sepsis, improving Acute leukocytosis, secondary to above Thrombocytopenia, chronic Anemia of chronic disease, secondary to end-stage renal disease. Elevated troponins, suspect supply/demand mismatch. History of TAVR. History of hyperlipidemia. Obesity, with a BMI of 33.5 kg/m. Obstructive sleep apnea, with home BiPAP device. Former tobacco smoker. Plan: Neurologic function is stable without any new findings MRI of the brain consistent with septic emboli to the brain Patient is currently on room air oxygen. May need O2 should there be any oxygen desaturation. Most recent chest x-ray shows stable findings without any acute abnormalities. continue IV nafcillin and infectious disease on the case. Regarding endocarditis, cardiothoracic surgery consultation will be also placed. Patient is post TAVR. Noted to follow-up blood cultures have been negative thus far. Hemodynamically stable Monitor motor function on the left side of the body. Hemodialysis per nephrology, next hemodialysis on Thursday Management of the warfarin related PT/INR monitoring from medicine. INR is therapeutic Follow-up blood cultures are negative Prognosis poor based on above-mentioned findings. Carries a poor prognosis based on his comorbidities and presence of infective en docarditis involving the anterior leaflet of the mitral valve. Overall condition is stable and will continue to follow. Cardiothoracic surgery is on the case Not much can be offered from the pulmonary or critical care standpoint. Will sign off the case.
[2024-02-29 17:00] LABS: Glucose,Whole Blood 118 mg/dL (70-110)
--- NOTE | 2024-02-29 17:41 | P.PN ---
Subjective Progress Note Date: 02/28/24 Principal diagnosis: Reason for follow-up with MSSA bacteremia Patient is a 78-year-old male with a past medical his significant for diabetes mellitus hypertension hyperlipidemia atrial fibrillation history of end-stage renal disease on dialysis through left arm AV graft patient has been brought into the hospital for fever weakness and did have bacteremia.Patient did have a TREY completed on 02/26/2024 with evidence of a large vegetation on the anterior mitral leaflet there was no mention of any vegetation on the bioprosthetic aortic valve. On today's evaluation that is 02/28/2024, the patient continues to be afebrile, the patient is on 2 L nasal oxygen and breathing comfortably, the Pt denies having any chest pain or cough, the patient denies having any abdominal pain no vomiting or any diarrhea has been reported by the nursing staff Patient white count is down to 12.7 Objective - Vital Signs Vital signs: Vital Signs Temp 98.7 F 02/28/24 04:00 Pulse 86 02/28/24 04:00 Resp 18 02/28/24 04:00 BP 108/52 02/28/24 04:00 Pulse Ox 97 02/28/24 08:09 FiO2 30 02/28/24 00:40 Intake & Output 02/27/24 02/28/24 02/28/24 18:59 06:59 18:59 Intake Total 770 200 Balance 770 200 Intake: Intake, IV Titration 300 200 Amount Nafcillin 2 gm In 300 200 Dextrose 5% in Water 100 ml @ 50 mls/hr IVPB Q4HR [facility] Rx#:[id number] Oral 470 Other: Voiding Method Diaper Diaper # Bowel Movements 1 1 - Exam GENERAL DESCRIPTION: An elderly male lying in bed in no distress RESPIRATORY SYSTEM: Unlabored breathing , decreased breath sounds at bases HEART: S1 S2 regular rate and rhythm , ABDOMEN: Soft , no tenderness Exam completed with help of GARDENER FLORIST - Labs CBC & Chem 7: 02/29/24 08:52 02/29/24 08:52 Labs: Abnormal Lab Results - Last 24 Hours (Table) 02/27/24 02/27/24 02/27/24 Range/Units 11:11 16:09 20:33 POC Glucose (mg/dL) 221 H 178 H 316 H (70-110) mg/dL 02/28/24 Range/Units 06:24 POC Glucose (mg/dL) 178 H (70-110) mg/dL Assessment and Plan (1) Leukocytosis Current Visit: Yes Status: Acute Code(s): D72.829 - ELEVATED WHITE BLOOD CELL COUNT, UNSPECIFIED SNOMED Code(s): 856144716 (2) MSSA bacteremia Current Visit: Yes Status: Acute Code(s): R78.81 - BACTEREMIA; B95.61 - METHICILLIN SUSCEP STAPH INFCT CAUSING DIS CLASSD ELSWHR SNOMED Code(s): 870416667 Plan: 1patient with MSSA bacteremia in this patient who do have a history of renal failure with on hemodialysis with a left arm fistula site with presentation to the hospital with weakness fall and urinary frequency however UA is negative abdominal soft no significant respiratory symptoms or hypoxemia question of possible related to the fistula site which was nonfunctioning and did have angiogram and angioplasty done this admission. 2blood cultures repeated 02/17/2024 came back positive blood culture has been repeated 02/19/2024 as well as 02/20/2024 are so far negative keeping in mind his TAVR procedure, cardiology has been consulted for TREY which was completed 02/26/2024 with evidence of large vegetation on the anterior mitral valve leaflet did not mention any vegetation on the bioprosthetic aortic valve 3-CT surgery has been consulted because of the large vegetation patient has been evaluated by CT surgery recommending no surgical intervention at this point 4-patient is covered with Naficillin , patient has clear his bacteremia once the patient is cleared for placement of the PICC line can be placed for outpatient IV antibiotic therapy versus cefazolin with dialysis will discuss with nephrolog y team Dictation was produced using [employer] dictation software. please excuse any grammatical, word or spelling errors. Time with Patient: Less than 30
--- NOTE | 2024-02-29 17:45 | P.PN ---
Subjective Progress Note Date: 02/29/24 Principal diagnosis: Reason for follow-up with MSSA bacteremia Patient is a 78-year-old male with a past medical his significant for diabetes mellitus hypertension hyperlipidemia atrial fibrillation history of end-stage renal disease on dialysis through left arm AV graft patient has been brought into the hospital for fever weakness and did have bacteremia.Patient did have a TREY completed on 02/26/2024 with evidence of a large vegetation on the anterior mitral leaflet there was no mention of any vegetation on the bioprosthetic aortic valve. On today's evaluation that is 02/29/2024, Patient is afebrile patient is currently on 2 L nasal cannula oxygen and denies having any shortness of breath, the patient denies any chest pain or cough, the patient denies any nausea vomiting did not have any abdominal pain and no diarrhea, patient mention feeling better Patient white count is slightly up to 14,000 today creatinine 7.22 blood culture repeat has been negative Objective - Vital Signs Vital signs: Vital Signs Temp 98.7 F 02/29/24 11:25 Pulse 67 02/29/24 16:20 Resp 17 02/29/24 16:20 BP 132/79 02/29/24 16:20 Pulse Ox 100 02/29/24 16:20 FiO2 30 02/29/24 04:27 Intake & Output 02/28/24 02/29/24 02/29/24 18:59 06:59 18:59 Intake Total 118 Output Total 150 Balance 118 -150 Weight 105 kg Intake: Oral 118 Output: Urine 150 Other: Voiding Method Diaper Diaper Diaper External Catheter External Catheter # Voids 0 0 # Bowel Movements 1 - Exam GENERAL DESCRIPTION: An elderly male lying in bed in no distress RESPIRATORY SYSTEM: Unlabored breathing , decreased breath sounds at bases HEART: S1 S2 regular rate and rhythm , ABDOMEN: Soft , no tenderness Exam completed with help of CURRICULUM DEVELOPER - Labs CBC & Chem 7: 02/29/24 08:52 02/29/24 08:52 Labs: Abnormal Lab Results - Last 24 Hours (Table) 02/28/24 02/29/24 02/29/24 Range/Units 20:02 05:59 08:52 WBC (3.8-10.6) k/uL RBC (4.30-5.90) m/uL Hgb (13.0-17.5) gm/dL Hct (39.0-53.0) % MCV (80.0-100.0) fL MCHC (31.0-37.0) g/dL Neutrophils # (1.3-7.7) k/uL Lymphocytes # (1.0-4.8) k/uL PT 21.9 H (10.0-12.5) sec INR 2.2 H (<1.2) Sodium (137-145) mmol/L Chloride (98-107) mmol/L BUN (9-20) mg/dL Creatinine (0.66-1.25) mg/dL Glucose (74-99) mg/dL POC Glucose (mg/dL) 300 H 133 H (70-110) mg/dL Calcium (8.4-10.2) mg/dL 02/29/24 02/29/24 02/29/24 Range/Units 08:52 08:52 11:53 WBC 14.0 H (3.8-10.6) k/uL RBC 2.69 L (4.30-5.90) m/uL Hgb 8.3 L (13.0-17.5) gm/dL Hct 27.2 L (39.0-53.0) % MCV 101.2 H (80.0-100.0) fL MCHC 30.6 L (31.0-37.0) g/dL Neutrophils # 12.0 H (1.3-7.7) k/uL Lymphocytes # 0.7 L (1.0-4.8) k/uL PT (10.0-12.5) sec INR (<1.2) Sodium 125 L (137-145) mmol/L Chloride 88 L (98-107) mmol/L BUN 90 H (9-20) mg/dL Creatinine 7.22 H* (0.66-1.25) mg/dL Glucose 103 H (74-99) mg/dL POC Glucose (mg/dL) 191 H (70-110) mg/dL Calcium 7.4 L (8.4-10.2) mg/dL 02/29/24 Range/Units 16:58 WBC (3.8-10.6) k/uL RBC (4.30-5.90) m/uL Hgb (13.0-17.5) gm/dL Hct (39.0-53.0) % MCV (80.0-100.0) fL MCHC (31.0-37.0) g/dL Neutrophils # (1.3-7.7) k/uL Lymphocytes # (1.0-4.8) k/uL PT (10.0-12.5) sec INR (<1.2) Sodium (137-145) mmol/L Chloride (98-107) mmol/L BUN (9-20) mg/dL Creatinine (0.66-1.25) mg/dL Glucose (74-99) mg/dL POC Glucose (mg/dL) 118 H (70-110) mg/dL Calcium (8.4-10.2) mg/dL Assessment and Plan (1) Leukocytosis Current Visit: Yes Status: Acute Code(s): D72.829 - ELEVATED WHITE BLOOD C ELL COUNT, UNSPECIFIED SNOMED Code(s): 368136423 (2) MSSA bacteremia Current Visit: Yes Status: Acute Code(s): R78.81 - BACTEREMIA; B95.61 - METHICILLIN SUSCEP STAPH INFCT CAUSING DIS CLASSD ELSWHR SNOMED Code(s): 821916190 Plan: 1patient with MSSA bacteremia in this patient who do have a history of renal failure with on hemodialysis with a left arm fistula site with presentation to the hospital with weakness fall and urinary frequency however UA is negative abdominal soft no significant respiratory symptoms or hypoxemia question of possible related to the fistula site which was nonfunctioning and did have ang iogram and angioplasty done this admission. 2blood cultures repeated 02/17/2024 came back positive blood culture has been repeated 02/19/2024 as well as 02/20/2024 are so far negative keeping in mind his TAVR procedure, cardiology has been consulted for TREY which was completed 02/26/2024 with evidence of large vegetation on the anterior mitral valve leaflet did not mention any vegetation on the bioprosthetic aortic valve 3-CT surgery has been consulted because of the large vegetation patient has been evaluated by CT surgery recommending no surgical intervention at this point 4-patient is covered with Naficillin , once cleared by nephrology for placement of a PICC line plan will be for continuation of Naficillin to finish 6-week course of therapy from the negative blood culture discussed with admitting team Dictation was produced using dragon dictation software. please excuse any grammatical, word or spelling errors. Time with Patient: Less than 30
[2024-02-29] MEDS: WARFARIN 2.5 MG TAB PO ONE (18:12)
[2024-02-29 20:03] LABS: Glucose,Whole Blood 133 mg/dL (70-110)
[2024-03-01 06:16] LABS: Glucose,Whole Blood 161 mg/dL (70-110)
[2024-03-01 08:39] LABS: INR 1.8 (<1.2); Prothrombin Time 18.4 sec (10.0-12.5)
[2024-03-01 08:43] LABS: Basophils % (A) 0 %; Eosinophils # (A) 0.1 k/uL (0-0.7); Eosinophils % (A) 1 %; HCT 22.3 % (39.0-53.0); HGB 7.5 gm/dL (13.0-17.5); Lymphocytes # (A) 0.7 k/uL (1.0-4.8); Lymphocytes % (A) 7 %; MCHC 33.5 g/dL (31.0-37.0); Monocytes # (A) 0.8 k/uL (0-1.0); Monocytes % (A) 7 %; Neutrophils # (A) 9.1 k/uL (1.3-7.7); Neutrophils % (A) 84 %; Platelet Count 189 k/uL (150-450); RBC 2.33 m/uL (4.30-5.90); RDW 15.4 % (11.5-15.5)
[2024-03-01 08:52] LABS: MCV 95.7 fL (80.0-100.0)
[2024-03-01 09:07] LABS: African American GFR (CKD) 12 (>60 ml/min/1.73 sqM); Anion Gap 7 mmol/L; Blood Urea Nitrogen 50 mg/dL (9-20); Calcium 7.2 mg/dL (8.4-10.2); Carbon Dioxide 29 mmol/L (22-30); Chloride 91 mmol/L (98-107); Glucose 129 mg/dL (74-99); Magnesium 1.9 mg/dL (1.6-2.3); Non-African American GFR(CKD) 10 (>60 ml/min/1.73 sqM); Potassium 4.5 mmol/L (3.5-5.1); Sodium 127 mmol/L (137-145)
--- NOTE | 2024-03-01 09:23 | P.PN ---
Subjective Progress Note Date: 03/01/24 Principal diagnosis: Infective endocarditis of the mitral valve, staphylococcus aureus sepsis, bacteremia, left-sided weakness, altered mental status, acute leukocytosis. History of severe aortic valve stenosis status post TAVR placement at [facility] 07/2023, ESRD hemodialysis on //, anemia of chronic disease, hypertension, hyperlipidemia, obesity, obstructive sleep apnea with home BiPAP device, COPD, previous tobacco dependence The patient was seen and examined this morning sitting up in bed on the cardiac stepdown unit in no acute distress. Denies pain or shortness of breath. Remains in controlled atrial fibrillation, hemodynamically stable. Blood cultures from February 18 and are finalized as negative, remains afebrile, WBC was 14 yesterday, up from previous day, remains on IV nafcillin per infectious disease. Discussed the case with Dr. Terrazas, patient may potentially benefit from surgical intervention for mitral valve endocarditis although he would be extremely high risk for any surgical intervention. At this point recommendation is for medical therapy as it appears to be working with patient's blood cultures negative. If patient needs mitral valve replacement in the future would need heart catheterization to evaluate for coronary artery disease prior. Objective - Vital Signs Vital signs: Vital Signs Temp 98.3 F 03/01/24 03:33 Pulse 80 03/01/24 03:33 Resp 17 03/01/24 03:33 BP 128/62 03/01/24 03:33 Pulse Ox 98 03/01/24 03:33 FiO2 30 03/01/24 03:33 Intake & Output 02/29/24 03/01/24 03/01/24 18:59 06:59 18:59 Intake Total 940 Output Total 50 1900 Balance -50 -960 Intake: Intake, IV Titration 300 Amount Nafcillin 2 gm In 300 Dextrose 5% in Water 100 ml @ 50 mls/hr IVPB Q4HR [facility] Rx#:[id number] Oral 240 Hemodialysis 400 Output: Urine 50 Hemodialysis 1900 Other: Voiding Method Diaper Diaper External Catheter External Catheter # Voids 0 - Exam CONSTITUTIONAL: Appears comfortable, cooperative, no acute distress RESPIRATORY: Lungs sounds diminished bilaterally. Respirations even, nonlabored. Currently on 2 L nasal cannula with oxygen saturation 97% CARDIOVASCULAR: S1, S2 present, systolic murmur present. Irregular rate and rhythm, controlled atrial fibrillation on telemetry. Palpable peripheral pulses bilaterally. No edema present. No calf pain or tenderness noted GASTROINTESTINAL: Abdomen soft, nontender, nondistended. Active bowel sounds present 4 quadrants. Tolerating diet. Positive bowel movement 02/27 GENITOURINARY: Continues to void INTEGUMENTARY: Skin is warm and dry with evidence of good perfusion NEUROLOGIC: Cranial nerves II through XII intact, slow to respond but is completely oriented and following commands MUSKULOSKELETAL: Able to move all extremities, generalized weakness present, left greater than right PSYCHIATRIC: Alert and oriented to person place and time - Allied health notes Allied health notes reviewed: nursing - Labs CBC & Chem 7: 03/01/24 07:57 03/01/24 07:57 Labs: Abnormal Lab Results - Last 24 Hours (Table) 02/29/24 02/29/24 02/29/24 Range/Units 08:52 08:52 08:52 WBC 14.0 H (3.8-10.6) k/uL RBC 2.69 L (4.30-5.90) m/uL Hgb 8.3 L (13.0-17.5) gm/dL Hct 27.2 L (39.0-53.0) % MCV 101.2 H (80.0-100.0) fL MCHC 30.6 L (31.0-37.0) g/dL Neutrophils # 12.0 H (1.3-7.7) k/uL Lymphocytes # 0.7 L (1.0-4.8) k/uL PT 21.9 H (10.0-12.5) sec INR 2.2 H (<1.2) Sodium 125 L (137-145) mmol/L Chloride 88 L (98-107) mmol/L BUN 90 H (9-20) mg/dL Creatinine 7.22 H* (0.66-1.25) mg/dL Glucose 103 H (74-99) mg/dL POC Glucose (mg/dL) (70-110) mg/dL Calcium 7.4 L (8.4-10.2) mg/dL 02/29/24 02/29/24 02/29/24 Range/Units 11:53 16:58 20:01 WBC (3.8-10.6) k/uL RBC (4.30-5.90) m/uL Hgb (13.0-17.5) gm/dL Hct (39.0-53.0) % MCV (80.0-100.0) fL MCHC (31.0-37.0) g/dL Neutrophils # (1.3-7.7) k/uL Lymphocytes # (1.0-4.8) k/uL PT (10.0-12.5) sec INR (<1.2) Sodium (137-145) mmol/L Chloride (98-107) mmol/L BUN (9-20) mg/dL Creatinine (0.66-1.25) mg/dL Glucose (74-99) mg/dL POC Glucose (mg/dL) 191 H 118 H 133 H (70-110) mg/dL Calcium (8.4-10.2) mg/dL 03/01/24 Range/Units 06:15 WBC (3.8-10.6) k/uL RBC (4.30-5.90) m/uL Hgb (13.0-17.5) gm/dL Hct (39.0-53.0) % MCV (80.0-100.0) fL MCHC (31.0-37.0) g/dL Neutrophils # (1.3-7.7) k/uL Lymphocytes # (1.0-4.8) k/uL PT (10.0-12.5) sec INR (<1.2) Sodium (137-145) mmol/L Chloride (98-107) mmol/L BUN (9-20) mg/dL Creatinine (0.66-1.25) mg/dL Glucose (74-99) mg/dL POC Glucose (mg/dL) 161 H (70-110) mg/dL Calcium (8.4-10.2) mg/dL Assessment and Plan Assessment: Infective endocarditis, large vegetation attached to the anterior mitral leaflet that is freely floating [id number] in the atria per transesophageal echoca rdiogram with mild to moderate mitral valve regurgitation Staphylococcus aureus sepsis, bacteremia blood cultures 02/18, 02/19 demonstrate no growth to date Left-sided weakness, CT of the brain shows no acute intracranial process, brain MRI demonstrates numerous peripheral and deep punctate diffusion hyperintensities compatible with acute ischemic changes likely from septic emboli Altered mental status Acute leukocytosis, likely secondary to above History of severe aortic valve stenosis, status post TAVR placement at [facility] 07/2023 End-stage renal disease, hemodialysis on Wednesdays and Fridays Anemia of chronic disease History of hypertension History of hyperlipidemia Obesity with a BMI of 33.2 kg/m Obstructive sleep apnea with home BiPAP device COPD Previous tobacco dependence Plan: No surgical intervention at this point, recommend continuing antibiotics per infectious disease A-fib management per cardiology Dialysis per nephrology Patient may benefit from mitral valve replacement down the road although any surgery would be extremely high risk Medical management of other comorbidities per internal medicine, cardiology, infectious disease, nephrology More recommendations to follow
[2024-03-01 12:01] LABS: Glucose,Whole Blood 98 mg/dL (70-110)
--- NOTE | 2024-03-01 12:03 | P.PN ---
Subjective Patient is seen for follow-up for end-stage renal disease. Maintained on Thursday schedule. No significant complaints today. patient has been evaluated by cardiothoracic surgery for mitral valve vegetation. Objective - Vital Signs Vital signs: Vital Signs Temp 98.9 F 03/01/24 08:37 Pulse 100 03/01/24 08:37 Resp 18 03/01/24 08:37 BP 117/63 03/01/24 08:37 Pulse Ox 96 03/01/24 08:37 FiO2 30 03/01/24 03:33 Intake & Output 02/29/24 03/01/24 03/01/24 18:59 06:59 18:59 Intake Total 940 Output Total 50 1900 Balance -50 -960 Intake: Intake, IV Titration 300 Amount Nafcillin 2 gm In 300 Dextrose 5% in Water 100 ml @ 50 mls/hr IVPB Q4HR [facility] Rx#:[id number] Oral 240 Hemodialysis 400 Output: Urine 50 Hemodialysis 1900 Other: Voiding Method Diaper Diaper Diaper External Catheter External Catheter External Catheter # Voids 0 # Bowel Movements 1 - Exam patient is awake, comfortable, no acute distress. Examination of the heart S1 and S2 Examination of the lungs bilateral breath sounds are heard decreased breath sounds at the bases Abdomen is soft nontender Examination of lower extremities shows no significant edema. 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 SAW OPERATOR exam grossly intact - Labs CBC & Chem 7: 03/01/24 07:57 03/01/24 07:57 Labs: Abnormal Lab Results - Last 24 Hours (Table) 02/29/24 02/29/24 03/01/24 Range/Units 16:58 20:01 06:15 WBC (3.8-10.6) k/uL RBC (4.30-5.90) m/uL Hgb (13.0-17.5) gm/dL Hct (39.0-53.0) % Neutrophils # (1.3-7.7) k/uL Lymphocytes # (1.0-4.8) k/uL PT (10.0-12.5) sec INR (<1.2) Sodium (137-145) mmol/L Chloride (98-107) mmol/L BUN (9-20) mg/dL Creatinine (0.66-1.25) mg/dL Glucose (74-99) mg/dL POC Glucose (mg/dL) 118 H 133 H 161 H (70-110) mg/dL Calcium (8.4-10.2) mg/dL 03/01/24 03/01/24 03/01/24 Range/Units 07:57 07:57 07:57 WBC 11.0 H (3.8-10.6) k/uL RBC 2.33 L (4.30-5.90) m/uL Hgb 7.5 L (13.0-17.5) gm/dL Hct 22.3 L (39.0-53.0) % Neutrophils # 9.1 H (1.3-7.7) k/uL Lymphocytes # 0.7 L (1.0-4.8) k/uL PT 18.4 H (10.0-12.5) sec INR 1.8 H (<1.2) Sodium 127 L (137-145) mmol/L Chloride 91 L (98-107) mmol/L BUN 50 H (9-20) mg/dL Creatinine 4.97 H (0.66-1.25) mg/dL Glucose 129 H (74-99) mg/dL POC Glucose (mg/dL) (70-110) mg/dL Calcium 7.2 L (8.4-10.2) mg/dL Assessment and Plan Assessment: 1. End-stage renal disease on hemodialysis on a Thursday schedule via left arm AV graft. AV graft is functional. Status post fistulog silvia and angioplasty 02/16/2024 2. A. fib with RVR status post Cardizem drip 3. MSSA bacteremia on antibiotics. ID following. TREY showed a large vegetation on the mitral valve. CTS following. Septic emboli noted on MRI. No surgical intervention planned at this time due to being high risk. Cardiac cath being considered. 4. Volume overload, improved 5. Acute hypoxic respiratory failure secondary to volume overload, improved. Plan: hemodialysis on a Thursday schedule. Continue with IV antibiotics.
--- NOTE | 2024-03-01 14:43 | P.PN ---
Subjective Progress Note Date: 03/01/24 Hospital Course: Patient is a 78-year-old male with with known diabetes, atrial fibrillation anticoagulated with Coumadin, prior bioprosthetic aortic valve replacement, dyslipidemia, end-stage renal disease on hemodialysis Thursday/Thursday/Thursday, and BPH who presented to the emergency department due to confusion and weakness. He had previously been to [facility] where he was noted to have a fever and elevated heart rate he was then discharged from the emergency department. When he went to go to dialysis they terminated after 1 hour due to a fever. On arrival to the emergency department he was noted to be febrile to 104.1 with a heart rate of 140. Initial laboratory analysis was remarkable for white blood cell count 19.4, platelets 131, lactic acid 2.6, troponin 0.12, and renal function consistent with his known dialysis. Influenza A/B/RSV/COVID-19 testing was negative. Initial chest x-ray demonstrated pulmonary vascular congestion. Patient was admitted for sepsis of unknown etiology and A-fib with RVR. He was to started on vancomycin and cefepime as well as a Cardizem drip. Critical care and cardiology were consulted. Echocardiogram was performed which demonstrated ejection fraction of 40 to 45% with mild to moderate perivalvular leak of his aortic valve replacement. Vascular surgery was consulted as his dialysis access is not working. And on 02/15 he underwent left upper extremity fistulogram with transluminal ballooning and thrombolysis at proximal aspect of graft. He then underwent hemodialysis and became slightly hypotensive requiring initiation of norepinephrine. He was subsequently transferred to the ICU. He had melanic stools. His hemoglobin stabilized and he had a recent outpatient colonoscopy without active bleeding. Blood cultures came back positive for MSSA. Patient's antibiotics switched to nafcillin. TREY showed large vegetation on the anterior mitral leaflet consistent with infective endocarditis. Patient during hospitalization was also confused with left-sided weakness. He had an MRI done that showed numerous peripheral and deep punctate diffuse hyperintensities compatible with acute ischemia secondary to septic emboli. There was concern for possible aspiration. Speech therapy was consulted. Spee ch therapy recommended dysphagia 1 diet. This can be advanced once mentation improves. Patient's blood cultures done on 02/18 and 02/20/2024 were negative. I discussed with CT surgery who said patient does not need any intervention at this time and patient can follow-up with cardiology outpatient for repeat echocardiogram and also with their service. Intervention will be done outpatient if patient continues to have persistent endocarditis on echocardiogram. Plan is to discharge the patient to long-term facility. Patient seen this morning. He is confused. He is following simple commands. He is answering simple questions. was at bedside. 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 -left upper and lower extremity weakness Psych - Calm and cooperative Assessment and plan MSSA bacteremia with sepsis Infective endocarditis of the mitral valve Patient currently on nafcillin Repeat blood cultures negative Discussed with CT surgery who said no surgery at this time and patient to follow-up outpatient Awaiting to get clearance from nephrology for a PICC line End-stage renal disease Nephrology on board Malfunction of the AV graft Status post angioplasty and thrombolysis Vascular surgery signed off Acute toxic metabolic encephalopathy secondary to acute ischemia from septic emboli Management as above for endocarditis Melena with possible lower GI bleed Resolved Patient restarted on Coumadin No overt signs of bleeding Slight drop in hemoglobin from 8.3->7.5 Acute exacerbation of systolic heart failure with an EF of 40-45% Volume status to be managed with dialysis Atrial fibrillation with RVR Heart rate now controlled Patient restarted on Coumadin INR this morning is 1.8 Type II non-ST elevation IN Likely due to sepsis History of TAVR Stable Thrombocytopenia likely due to sepsis Resolved type 2 diabetes mellitus Resume current insulin regimen and titrate as needed DVT prophylaxis: Coumadin Disposition: Awaiting for nephrology to clear patient for PICC line. Patient will need placement at long-term facility. Objective - Vital Signs Vital signs: Vital Signs Temp 98.9 F 03/01/24 08:37 Pulse 81 03/01/24 12:00 Resp 16 03/01/24 12:00 BP 150/76 03/01/24 12:00 Pulse Ox 95 03/01/24 12:00 FiO2 30 03/01/24 03:33 Intake & Output 02/29/24 03/01/24 03/01/24 18:59 06:59 18:59 Intake Total 940 Output Total 50 1900 Balance -50 -960 Intake: Intake, IV Titration 300 Amount Nafcillin 2 gm In 300 Dextrose 5% in Water 100 ml @ 50 mls/hr IVPB Q4HR [facility] Rx#:[id number] Oral 240 Hemodialysis 400 Output: Urine 50 Hemodialysis 1900 Other: Voiding Method Diaper Diaper Diaper External Catheter External Catheter External Catheter # Voids 0 # Bowel Movements 1 - Labs CBC & Chem 7: 03/01/24 07:57 03/01/24 07:57 Labs: Abnormal Lab Results - Last 24 Hours (Table) 02/29/24 02/29/24 03/01/24 Range/Units 16:58 20:01 06:15 WBC (3.8-10.6) k/uL RBC (4.30-5.90) m/uL Hgb (13.0-17.5) gm/dL Hct (39.0-53.0) % Neutrophils # (1.3-7.7) k/uL Lymphocytes # (1.0-4.8) k/uL PT (10.0-12.5) sec INR (<1.2) Sodium (137-145) mmol/L Chloride (98-107) mmol/L BUN (9-20) mg/dL Creatinine (0.66-1.25) mg/dL Glucose (74-99) mg/dL POC Glucose (mg/dL) 118 H 133 H 161 H (70-110) mg/dL Calcium (8.4-10.2) mg/dL 03/01/24 03/01/24 03/01/24 Range/Units 07:57 07:57 07:57 WBC 11.0 H (3.8-10.6) k/uL RBC 2.33 L (4.30-5.90) m/uL Hgb 7.5 L (13.0-17.5) gm/dL Hct 22.3 L (39.0-53.0) % Neutrophils # 9.1 H (1.3-7.7) k/uL Lymphocytes # 0.7 L (1.0-4.8) k/uL PT 18.4 H (10.0-12.5) sec INR 1.8 H (<1.2) Sodium 127 L (137-145) mmol/L Chloride 91 L (98-107) mmol/L BUN 50 H (9-20) mg/dL Creatinine 4.97 H (0.66-1.25) mg/dL Glucose 129 H (74-99) mg/dL POC Glucose (mg/dL) (70-110) mg/dL Calcium 7.2 L (8.4-10.2) mg/dL
--- NOTE | 2024-03-01 15:04 | P.PN ---
Subjective Progress Note Date: 03/01/24 Principal diagnosis: Acute infective endocarditis/anterior leaflet of the mitral valve On today's evaluation of 02/22/2024, seen the patient for a follow-up. The patient is currently undergoing hemodialysis and is resting comfortably in bed while awaiting a BiPAP at a pressure of 10/5 with an FiO2 of 30%. No significant respiratory distress at this point in time. Noted the patient had staphylococcal bacteremia/MSSA and the patient is currently on IV cefazolin. Pulse ox is in the order of 94% while wearing the BiPAP. No labs are available from today. Yesterday's labs were noted. The white cell count at 13.7 with a hemoglobin of 8.1 and a platelet count of 140. The most recent chest x-ray from 02/18/2024 showed cardiomegaly and mild pulm vascular congestion. No evidence of any consolidation or airspace disease. Echocardiogram on 02/16/2024 showed left-ventricular ejection fraction of 40 to 45%, global hypokinesis, moderately decreased LV function, the aortic valve had some mild to moderate para valvular leak otherwise, no other significant valvular abnormalities noted. The patient is otherwise calm and comfortable. His comorbid conditions include end-stage renal disease on hemodialysis 3 times a week and the patient has a malfunctioning AV graft and the patient is status post angioplasty and thrombolysis of the left subclavian vein. Nephrology on the case. Vascular surgery is also on the case. Hemoglobin is stable for now and there is no evidence of any GI bleeding. The patient has been anticoagulated regarding chronic atrial fibrillation. The patient has hyperlipidemia, diabetes mellitus type 2 as comorbid conditions. The patient is post TAVR procedure with some mild to moderate aortic valvular leak. 02/23/2024, the patient is being seen for a follow-up. This patient is 78 and the patient has MSSA septicemia currently on IV cefazolin. The most recent follow-up blood cultures from [facility] on 02/20/2024 were negative. The patient sander ins hemodynamically stable. On today's blood work, there is a white cell count of 15.5 with a hemoglobin of 8 and a platelet count of 211. The sodium level is 132, BUN 77 creatinine 5.38 and a potassium level is at 3.9. INR is currently at 3.9. Patient remains on IV cefazolin. The patient is on Levemir insulin 24 units at bedtime along with NovoLog 2 units with meals + scale coverage. Remain s on Demadex 40 mg p.o. daily. Remains on Flomax. The CAT scan of the brain was done today and showed no acute abnormalities and there was some nonspecific white matter changes likely secondary to chronic small vessel ischemic disease. At the same time, a chest x-ray was repeated today and shows essentially stable findings with some calcification along the pleural surface and the right and mild pulm vessel congestion without any significant interval changes compared to the earlier chest x-ray. Respiratory status is stable. The patient is currently off the BiPAP initially at 2 L and subsequently out of her oxygen with a pulse ox of 96%. The patient is also being seen by infectious disease. TREY has been ordered. The patient is being seen by nephrology. Regarding his end-stage renal disease and the patient is undergoing hemodialysis MWF. No problems with dialysis and his last dialysis session was done yesterday. No reported shortness of breath at this point in time. His MSSA ba cteremia is still being investigated and the patient is being considered for a TREY. On today's evaluation of 02/24/2024, the patient is essentially unchanged. Calm and comfortable, resting comfortably in bed. No significant respiratory distress. He remains on oxygen on room air with a pulse ox of 95%. No cough. No sputum production. No chest tightness. No wheezing. Obese, 17.8 with a hemoglobin of 8 and a platelet count of 236. BUN is 100 and the creatinine is at 7.1 and a sodium levels at 131. The patient has end-stage renal disease and the patient undergoes hemodialysis 3 times a week and he is scheduled to undergo hemodialysis today. Afebrile. Remains on IV cefazolin. Repeated blood cultures from 03/03/2024 on 02/20/2024 were negative. On 02/25/2024, seen the patient for a follow-up. Resting comfortably in bed on room air oxygen. No respiratory distress. Last hemodialysis session was yesterday. No chest pain. No shortness of breath. Hemodynamically stable. White cell count at 17 with a hemoglobin 8.1. INR is at 3.3. BUN 67 with a creatinine of 5.25 and a potassium level of 3.9. Afebrile for now. Repeat blood cultures have been negative thus far. Patient is being seen for a follow-up. Unfortunately, the TREY that was completed today showed evidence of infective endocarditis. The patient had a large vegetation noted over the anterior mitral valve leaflet consistent with diagnosis of infective endocarditis. The patient has a bioprosthetic aortic valve also. Note that he remains quite lethargic. He is awake alert and communicating. Weakness was noted in the left upper and left lower extremity and this has evolved over the past 24 to 48 hours. Septic emboli to the brain was suspected. Based on that, CAT scan of the brain was done and showed no evidence of any acute intracranial process and there was some nonspecific white matter changes likely secondary to chronic small vessel ischemic changes. Antibiotics has been switched to nafcillin. The repeat blood cultures from 02/19/2024 and 02/20/2024 were negative. White cell count is 16.7 with a hemoglobin of 8.4 and a platelet count of 227. INR is at 4.7. BUN is 94 with a creatinine of 7.05 and sodium is at 130 with a potassium level of 5.0. Consultation was placed for cardiothoracic surgery regarding the endocarditis. The patient undergoes hemodialysis 3 times a week. No significant shortness of breath. This morning, he was on room air with a pulse ox of 99%. No hypotension. No cardiac arrhythmias noted. 02/27/2024, the patient is being seen for a follow-up. He is currently on room air oxygen. Resting comfortably in bed. Considerable weakness in the left upper and left lower extremity. Remains on IV nafcillin. The patient is clinically and hemodynamically stable. As mentioned, the patient had a large vegetation involving the anterior mitral leaflet and a TREY it was done on 02/26/2024. CAT scan of the brain showed no acute abnormalities. The patient denies having any shortness of breath. No chest pain. He remains on anticoagulation with warfarin and the PT/INR is supratherapeutic and this is being managed by the medical team. No other significant issues otherwise. No skin rashes. No hematuria. Very much weak and debilitated. 02/28/2024, patient is being seen for a follow-up. Yet arousable. Follows simple commands. Left-sided weakness is obvious. MRI of the brain was also done and showed no evidence bilateral numerous peripheral and deep punctate diffusion hyperintensities correlating with c his history of infective endocarditis and ischemic changes related to septic embolism. Hemodynamically stable on IV nafcillin. Remains anticoagulated with warfarin. Remains on Demadex. No respiratory distress. Remains on room air oxygen. Afebrile. Blood cultures are negative. WBC is at 12.7 with a hemoglobin 8.6, INR is at 3.0, sodium is at 127, BUN 75 with a creatinine of 6.1. Patient was seen by nephrology. The plan is to undergo dialysis on Thursday. In terms of the atrial fibrillation, rate is controlled and the patient is on Lopressor for rate control and the patient is also on anticoagulation with warfarin. On 02/29/2024, the patient is clinically unchanged. He is following commands and answering questions. Nevertheless, his response is quite delayed. He does have septic emboli to the brain and the patient has mitral valve endocarditis and the patient remains on the nafcillin. Other complaints otherwise for now. Nephrology on the case and the patient is undergoing scheduled dialysis. He remains on torsemide. He is on PhosLo. Blood work shows a white cell count of 14, hemoglobin 8.3 and a platelet count of 209. INR is at 2.2. BUN is at 90 7.2. Sodium is 125 and a Potassium Level Is at 5.1. Patient Is Undergoing Hemodialysis MWF. No Shortness of Breath. No Cardiac Arrhythmias. Repeat Blood Cultures Were Negative. Remains on IV Nafcillin. Cardiothoracic Surgery Is on the Case. Patient was evaluated today on 03/01/2024, patient is now being treated for infective endocarditis of the mitral valve, Staph aureus sepsis, bacteremia, left-sided weakness with altered mental status. Patient had history of aortic valve stenosis and previous TAVR placement at the [facility] 07/27, patient is also known to have end-stage renal disease on hemodialysis and he has COPD and obstructive sleep apnea syndrome. Patient seems to be comfortable, he is being considered for mitral valve replacement in the future, and he is also being considered for cardiac catheterization to evaluate coronary artery disease prior. Patient is clearly a high surgical risk. WBC count today is 11 hemoglobin is 7.5 INR 1.8 sodium 127 BUN is 50 creatinine 4.97. Chest x-ray from a week ago showed mostly pulmonary vascular congestion and congestive heart failure. There was also evidence of calcification of the pleura suggestive of prior asbestos exposure. Objective - Vital Signs Vital signs: Vital Signs Temp 98.9 F 03/01/24 08:37 Pulse 81 03/01/24 12:00 Resp 16 03/01/24 12:00 BP 150/76 03/01/24 12:00 Pulse Ox 95 03/01/24 12:00 FiO2 30 03/01/24 03:33 Intake & Output 02/29/24 03/01/24 03/01/24 18:59 06:59 18:59 Intake Total 940 Output Total 50 1900 Balance -50 -960 Intake: Intake, IV Titration 300 Amount Nafcillin 2 gm In 300 Dextrose 5% in Water 100 ml @ 50 mls/hr IVPB Q4HR [facility] Rx#:[id number] Oral 240 Hemodialysis 400 Output: Urine 50 Hemodialysis 1900 Other: Voiding Method Diaper Diaper Diaper External Catheter External Catheter External Catheter # Voids 0 # Bowel Movements 1 - Exam CONSTITUTIONAL: Appears comfortable, cooperative, no acute distress, patient is on room air. RESPIRATORY: Minimal crackles at the bases no rhonchi no wheezes CARDIOVASCULAR: S1, S2 present, systolic murmur present. Irregular rate and rhythm, controlled atrial fibrillation on telemetry. Palpable peripheral pulses bilaterally. No edema present. No calf pain or tenderness noted GASTROINTESTINAL: Abdomen soft, nontender, nondistended. Active bowel sounds present 4 quadrants. Tolerating diet. Positive bowel movement 02/27 GENITOURINARY: Continues to void INTEGUMENTARY: Skin is warm and dry with evidence of good perfusion NEUROLOGIC: Cranial nerves II through XII intact, slow to respond but is completely oriented and following commands MUSKULOSKELETAL: Able to move all extremities, generalized weakness present, left greater than right PSYCHIATRIC: Alert and oriented to person place and time - Labs CBC & Chem 7: 03/01/24 07:57 03/01/24 07:57 Labs: Abnormal Lab Results - Last 24 Hours (Table) 02/29/24 02/29/24 03/01/24 Range/Units 16:58 20:01 06:15 WBC (3.8-10.6) k/uL RBC (4.30-5.90) m/uL Hgb (13.0-17.5) gm/dL Hct (39.0-53.0) % Neutrophils # (1.3-7.7) k/uL Lymphocytes # (1.0-4.8) k/uL PT (10.0-12.5) sec INR (<1.2) Sodium (137-145) mmol/L Chloride (98-107) mmol/L BUN (9-20) mg/dL Creatinine (0.66-1.25) mg/dL Glucose (74-99) mg/dL POC Glucose (mg/dL) 118 H 133 H 161 H (70-110) mg/dL Calcium (8.4-10.2) mg/dL 03/01/24 03/01/24 03/01/24 Range/Units 07:57 07:57 07:57 WBC 11.0 H (3.8-10.6) k/uL RBC 2.33 L (4.30-5.90) m/uL Hgb 7.5 L (13.0-17.5) gm/dL Hct 22.3 L (39.0-53.0) % Neutrophils # 9.1 H (1.3-7.7) k/uL Lymphocytes # 0.7 L (1.0-4.8) k/uL PT 18.4 H (10.0-12.5) sec INR 1.8 H (<1.2) Sodium 127 L (137-145) mmol/L Chloride 91 L (98-107) mmol/L BUN 50 H (9-20) mg/dL Creatinine 4.97 H (0.66-1.25) mg/dL Glucose 129 H (74-99) mg/dL POC Glucose (mg/dL) (70-110) mg/dL Calcium 7.2 L (8.4-10.2) mg/dL Assessment and Plan Assessment: Impression: Acute infective endocarditis involving the anterior leaflet of the mitral valve Staph aureus bacteremia and sepsis 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 Anemia of chronic disease End-stage renal disease, on hemodialysis History of underlying COPD Obstructive sleep apnea syndrome, on BiPAP Ex-smoker Recommendation: Continue antibiotics Continue hemodialysis Surgery to decide regarding timing of surgery when felt necessary. Patient is extremely high surgical risk. Continue medical management in the meantime. Patient is presently on nafcillin Continue bronchodilators/DuoNeb Will continue to follow while inpatient Time with Patient: Less than 30
--- NOTE | 2024-03-01 15:46 | P.PN ---
Subjective Progress Note Date: 03/01/24 Principal diagnosis: Reason for follow-up with MSSA bacteremia Patient is a 78-year-old male with a past medical his significant for diabetes mellitus hypertension hyperlipidemia atrial fibrillation history of end-stage renal disease on dialysis through left arm AV graft patient has been brought into the hospital for fever weakness and did have bacteremia.Patient did have a TREY completed on 02/26/2024 with evidence of a large vegetation on the anterior mitral leaflet there was no mention of any vegetation on the bioprosthetic aortic valve. On today's evaluation that is 03/01/2024, patient has been afebrile, patient is breathing comfortably and is currently on room air, patient denies having any significant cough no chest pain shortness of breath, patient denies nausea vomiting or diarrhea and no abdominal pain, mentation did have some improvement but the at the bedside. Patient white count is down to 11 creatinine is 4.97 Objective - Vital Signs Vital signs: Vital Signs Temp 98.9 F 03/01/24 08:37 Pulse 81 03/01/24 12:00 Resp 16 03/01/24 12:00 BP 150/76 03/01/24 12:00 Pulse Ox 95 03/01/24 12:00 FiO2 30 03/01/24 03:33 Intake & Output 02/29/24 03/01/24 03/01/24 18:59 06:59 18:59 Intake Total 940 Output Total 50 1900 Balance -50 -960 Intake: Intake, IV Titration 300 Amount Nafcillin 2 gm In 300 Dextrose 5% in Water 100 ml @ 50 mls/hr IVPB Q4HR [facility] Rx#:[id number] Oral 240 Hemodialysis 400 Output: Urine 50 Hemodialysis 1900 Other: Voiding Method Diaper Diaper Diaper External Catheter External Catheter External Catheter # Voids 0 # Bowel Movements 1 - Exam GENERAL DESCRIPTION: An elderly male lying in bed in no distress RESPIRATORY SYSTEM: Unlabored breathing , decreased breath sounds at bases HEART: S1 S2 regular rate and rhythm , ABDOMEN: Soft , no tenderness Exam completed with help of [employer] SAL[employer]NAGER - Labs CBC & Chem 7: 03/01/24 07:57 03/01/24 07:57 Labs: Abnormal Lab Results - Last 24 Hours (Table) 02/29/24 02/29/24 03/01/24 Range/Units 16:58 20:01 06:15 WBC (3.8-10.6) k/uL RBC (4.30-5.90) m/uL Hgb (13.0-17.5) gm/dL Hct (39.0-53.0) % Neutrophils # (1.3-7.7) k/uL Lymphocytes # (1.0-4.8) k/uL PT (10.0-12.5) sec INR (<1.2) Sodium (137-145) mmol/L Chloride (98-107) mmol/L BUN (9-20) mg/dL Creatinine (0.66-1.25) mg/dL Glucose (74-99) mg/dL POC Glucose (mg/dL) 118 H 133 H 161 H (70-110) mg/dL Calcium (8.4-10.2) mg/dL 03/01/24 03/01/24 03/01/24 Range/Units 07:57 07:57 07:57 WBC 11.0 H (3.8-10.6) k/uL RBC 2.33 L (4.30-5.90) m/uL Hgb 7.5 L (13.0-17.5) gm/dL Hct 22.3 L (39.0-53.0) % Neutrophils # 9.1 H (1.3-7.7) k/uL Lymphocytes # 0.7 L (1.0-4.8) k/uL PT 18.4 H (10.0-12.5) sec INR 1.8 H (<1.2) Sodium 127 L (137-145) mmol/L Chloride 91 L (98-107) mmol/L BUN 50 H (9-20) mg/dL Creatinine 4.97 H (0.66-1.25) mg/dL Glucose 129 H (74-99) mg/dL POC Glucose (mg/dL) (70-110) mg/dL Calcium 7.2 L (8.4-10.2) mg/dL Assessment and Plan (1) Leukocytosis Current Visit: Yes Status: Acute Code(s): D72.829 - ELEVATED WHITE BLOOD CELL COUNT, UNSPECIFIED SNOMED Code(s): 435985614 (2) MSSA bacteremia Current Visit: Yes Status: Acute Code(s): R78.81 - BACTEREMIA; B95.61 - METHICILLIN SUSCEP STAPH INFCT CAUSING DIS CLASSD [id number] SNOMED Code(s): 781811261 Plan: 1patient with MSSA bacteremia in this patient who do have a history of renal failure with on hemodialysis with a left arm fistula site with presentation to the hospital with weakness fall and urinary frequency however UA is negative abdominal soft no significant respiratory symptoms or hypoxemia question of possible related to the fistula site which was nonfunctioning and did have angiogram and angioplasty done this admission. 2blood cultures repeated 02/17/2024 came back positive blood culture has been repeated 02/19/2024 as well as 02/20/2024 are so far negative keeping in mind his TAVR procedure, cardiology has been consulted for TREY which was completed 02/26/2024 with evidence of large vegetation on the anterior mitral valve leaflet did not mention any vegetation on the bioprosthetic aortic valve 3-CT surgery has been consulted because of the large vegetation patient has been evaluated by CT surgery recommending no surgical intervention at this point 4-patient is covered with Naficillin , I did discuss with the nephrology they carl ve okayed the placement of the PICC line, also discussed with the case resource manager patient be going to facility where they can do Naficillin every 4 hours, we will go ahead and order PICC line and continue with Naficillin. Family at the bedside questions were answered Dictation was produced using [employer] dictation software. please excuse any grammatical, word or spelling errors. Time with Patient: Less than 30
[2024-03-01 16:54] LABS: Glucose,Whole Blood 201 mg/dL (70-110)
[2024-03-01] MEDS: WARFARIN 2.5 MG TAB PO ONE (17:12)
[2024-03-01 19:52] LABS: Glucose,Whole Blood 262 mg/dL (70-110)
[2024-03-02 05:50] LABS: Glucose,Whole Blood 114 mg/dL (70-110)
[2024-03-02 11:14] LABS: Glucose,Whole Blood 87 mg/dL (70-110)
--- NOTE | 2024-03-02 11:45 | P.PN ---
Progress Note - Text There are no further inpatient recommendations from a cardiac standpoint. Per Dr. West, we will sign off. Please reconsult if needed.
[2024-03-02 12:43] LABS: Basophils # (A) 0.1 k/uL (0-0.2); Basophils % (A) 1 %; Eosinophils # (A) 0.1 k/uL (0-0.7); Eosinophils % (A) 1 %; HCT 23.4 % (39.0-53.0); HGB 7.5 gm/dL (13.0-17.5); Lymphocytes # (A) 0.8 k/uL (1.0-4.8); Lymphocytes % (A) 7 %; MCH 30.9 pg (25.0-35.0); MCHC 31.9 g/dL (31.0-37.0); MCV 96.8 fL (80.0-100.0); Mean Platelet Volume 8.7; Monocytes # (A) 0.7 k/uL (0-1.0); Monocytes % (A) 6 %; Neutrophils # (A) 9.3 k/uL (1.3-7.7); Neutrophils % (A) 84 %; Platelet Count 198 k/uL (150-450); RBC 2.42 m/uL (4.30-5.90); RDW 15.4 % (11.5-15.5); WBC 11.1 k/uL (3.8-10.6)
[2024-03-02 12:49] LABS: INR 1.8 (<1.2); Prothrombin Time 17.9 sec (10.0-12.5)
[2024-03-02 12:53] LABS: African American GFR (CKD) 8 (>60 ml/min/1.73 sqM); Anion Gap 7 mmol/L; Blood Urea Nitrogen 67 mg/dL (9-20); Calcium 7.3 mg/dL (8.4-10.2); Carbon Dioxide 30 mmol/L (22-30); Chloride 90 mmol/L (98-107); Glucose 84 mg/dL (74-99); Non-African American GFR(CKD) 7 (>60 ml/min/1.73 sqM); Potassium 4.9 mmol/L (3.5-5.1); Sodium 127 mmol/L (137-145)
--- NOTE | 2024-03-02 13:11 | XR ---
EXAMINATION TYPE: XR chest 1V confirm line [facility] DATE OF EXAM: 03/02/2024 COMPARISON: 02/23/2024, 02/18/2020 HISTORY: Shortness of breath TECHNIQUE: Single frontal view of the chest is obtained. FINDINGS: A PICC line is seen with stable appearing bilateral airspace disease and there is diffuse bilateral pleural plaque compatible with inhalational\asbestos-related disease. Aortic valve replacem ent surgery. Atherosclerotic change aorta. Arthropathy of the AC joint. Degenerative change of the sp ine. IMPRESSION: 1. Stable bilateral airspace disease versus venous congestion stable. 2. Findings compatible inhalational\asbestos related disease.
--- NOTE | 2024-03-02 14:46 | P.PN ---
Subjective Progress Note Date: 03/02/24 Hospital Course: Patient is a 78-year-old male with with known diabetes, atrial fibrillation anticoagulated with Coumadin, prior bioprosthetic aortic valve replacement, dyslipidemia, end-stage renal disease on hemodialysis Thursday/Thursday/Thursday, and BPH who presented to the emergency department due to confusion and weakness. He had previously been to [facility] where he was noted to have a fever and elevated heart rate he was then discharged from the emergency department. When he went to go to dialysis they terminated after 1 hour due to a fever. On arrival to the emergency department he was noted to be febrile to 104.1 with a heart rate of 140. Initial laboratory analysis was remarkable for white blood cell count 19.4, platelets 131, lactic acid 2.6, troponin 0.12, and renal function consistent with his known dialysis. Influenza A/B/RSV/COVID-19 testing was negative. Initial chest x-ray demonstrated pulmonary vascular congestion. Patient was admitted for sepsis of unknown etiology and A-fib with RVR. He was to started on vancomycin and cefepime as well as a Cardizem drip. Critical care and cardiology were consulted. Echocardiogram was performed which demonstrated ejection fraction of 40 to 45% with mild to moderate perivalvular leak of his aortic valve replacement. Vascular surgery was consulted as his dialysis access is not working. And on 02/15 he underwent left upper extremity fistulogram with transluminal ballooning and thrombolysis at proximal aspect of graft. He then underwent hemodialysis and became slightly hypotensive requiring initiation of norepinephrine. He was subsequently transferred to the ICU. He had melanic stools. His hemoglobin stabilized and he had a recent outpatient colonoscopy without active bleeding. Blood cultures came back positive for MSSA. Patient's antibiotics switched to nafcillin. TREY showed large vegetation on the anterior mitral leaflet consistent with infective endocarditis. Patient during hospitalization was also confused with left-sided weakness. He had an MRI done that showed numerous peripheral and deep punctate diffuse hyperintensities compatible with acute ischemia secondary to septic emboli. There was concern for possible aspiration. Speech therapy was consulted. Spee ch therapy recommended dysphagia 1 diet. This can be advanced once mentation improves. Patient's blood cultures done on 02/18 and 02/20/2024 were negative. I discussed with CT surgery who said patient does not need any intervention at this time and patient can follow-up with cardiology outpatient for repeat echocardiogram and also with their service. Intervention will be done outpatient if patient continues to have persistent endocarditis on echocardiogram. Plan is to discharge the patient to long-term facility. Patient seen this morning. He is confused. He is following simple commands. He is answering simple questions. was at bedside. 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 PICC line has been ordered Infectious disease recommending 5 more weeks and ampicillin on discharge End-stage renal disease Nephrology on board Malfunction of the AV graft Status post angioplasty and thrombolysis Vascular surgery signed off Acute toxic metabolic encephalopathy secondary to acute ischemia from septic emboli Management as above for endocarditis Melena with possible lower GI bleed Resolved Patient restarted on Coumadin No overt signs of bleeding Hemoglobin this morning is stable at 7.5 Acute exacerbation of systolic heart failure with an EF of 40-45% Volume status to be managed with dialysis Atrial fibrillation with RVR Heart rate now controlled Patient restarted on Coumadin INR this morning is 1.8 Type II non-ST elevation MA Likely due to sepsis History of TAVR Stable Thrombocytopenia likely due to sepsis Resolved type 2 diabetes mellitus Resume current insulin regimen and titrate as needed DVT prophylaxis: Coumadin Disposition: Patient is stable for discharge to long-term facility. Of note is seeking second opinion from [facility] as well. Objective - Vital Signs Vital signs: Vital Signs Temp 97.6 F 03/02/24 08:00 Pulse 85 03/02/24 14:00 Resp 18 03/02/24 14:00 BP 136/85 03/02/24 12:00 Pulse Ox 97 03/02/24 12:00 FiO2 30 03/02/24 08:49 Intake & Output 03/01/24 03/02/24 03/02/24 18:59 06:59 18:59 Intake Total 10 240 Output Total 0 125 0 Balance 0 -115 240 Weight 105 kg Intake: IV 10 Invasive Line 5 10 Oral 240 Output: Urine 0 125 Stool 0 Other: Voiding Method Diaper External Catheter External Catheter External Catheter # Bowel Movements 0 1 - Labs CBC & Chem 7: 03/02/24 12:05 03/02/24 12:05 Labs: Abnormal Lab Results - Last 24 Hours (Table) 03/01/24 03/01/24 03/02/24 Range/Units 16:53 19:51 05:48 WBC (3.8-10.6) k/uL RBC (4.30-5.90) m/uL Hgb (13.0-17.5) gm/dL Hct (39.0-53.0) % Neutrophils # (1.3-7.7) k/uL Lymphocytes # (1.0-4.8) k/uL PT (10.0-12.5) sec INR (<1.2) Sodium (137-145) mmol/L Chloride (98-107) mmol/L BUN (9-20) mg/dL Creatinine (0.66-1.25) mg/dL POC Glucose (mg/dL) 201 H 262 H 114 H (70-110) mg/dL Calcium (8.4-10.2) mg/dL 03/02/24 03/02/24 03/02/24 Range/Units 12:05 12:05 12:05 WBC 11.1 H (3.8-10.6) k/uL RBC 2.42 L (4.30-5.90) m/uL Hgb 7.5 L (13.0-17.5) gm/dL Hct 23.4 L (39.0-53.0) % Neutrophils # 9.3 H (1.3-7.7) k/uL Lymphocytes # 0.8 L (1.0-4.8) k/uL PT 17.9 H (10.0-12.5) sec INR 1.8 H (<1.2) Sodium 127 L (137-145) mmol/L Chloride 90 L (98-107) mmol/L BUN 67 H (9-20) mg/dL Creatinine 6.68 H (0.66-1.25) mg/dL POC Glucose (mg/dL) (70-110) mg/dL Calcium 7.3 L (8.4-10.2) mg/dL
--- NOTE | 2024-03-02 14:59 | P.PN ---
Subjective Progress Note Date: 03/02/24 Principal diagnosis: Acute infective endocarditis/anterior leaflet of the mitral valve On today's evaluation of 02/22/2024, seen the patient for a follow-up. The patient is currently undergoing hemodialysis and is resting comfortably in bed while awaiting a BiPAP at a pressure of 10/5 with an FiO2 of 30%. No significant respiratory distress at this point in time. Noted the patient had staphylococcal bacteremia/MSSA and the patient is currently on IV cefazolin. Pulse ox is in the order of 94% while wearing the BiPAP. No labs are available from today. Yesterday's labs were noted. The white cell count at 13.7 with a hemoglobin of 8.1 and a platelet count of 140. The most recent chest x-ray from 02/18/2024 showed cardiomegaly and mild pulm vascular congestion. No evidence of any consolidation or airspace disease. Echocardiogram on 02/16/2024 showed left-ventricular ejection fraction of 40 to 45%, global hypokinesis, moderately decreased LV function, the aortic valve had some mild to moderate para valvular leak otherwise, no other significant valvular abnormalities noted. The patient is otherwise calm and comfortable. His comorbid conditions include end-stage renal disease on hemodialysis 3 times a week and the patient has a malfunctioning AV graft and the patient is status post angioplasty and thrombolysis of the left subclavian vein. Nephrology on the case. Vascular surgery is also on the case. Hemoglobin is stable for now and there is no evidence of any GI bleeding. The patient has been anticoagulated regarding chronic atrial fibrillation. The patient has hyperlipidemia, diabetes mellitus type 2 as comorbid conditions. The patient is post TAVR procedure with some mild to moderate aortic valvular leak. 02/23/2024, the patient is being seen for a follow-up. This patient is 78 and the patient has MSSA septicemia currently on IV cefazolin. The most recent follow-up blood cultures from [facility] on 02/20/2024 were negative. The patient sander ins hemodynamically stable. On today's blood work, there is a white cell count of 15.5 with a hemoglobin of 8 and a platelet count of 211. The sodium level is 132, BUN 77 creatinine 5.38 and a potassium level is at 3.9. INR is currently at 3.9. Patient remains on IV cefazolin. The patient is on Levemir insulin 24 units at bedtime along with NovoLog 2 units with meals + scale coverage. Remain s on Demadex 40 mg p.o. daily. Remains on Flomax. The CAT scan of the brain was done today and showed no acute abnormalities and there was some nonspecific white matter changes likely secondary to chronic small vessel ischemic disease. At the same time, a chest x-ray was repeated today and shows essentially stable findings with some calcification along the pleural surface and the right and mild pulm vessel congestion without any significant interval changes compared to the earlier chest x-ray. Respiratory status is stable. The patient is currently off the BiPAP initially at 2 L and subsequently out of her oxygen with a pulse ox of 96%. The patient is also being seen by infectious disease. TREY has been ordered. The patient is being seen by nephrology. Regarding his end-stage renal disease and the patient is undergoing hemodialysis MWF. No problems with dialysis and his last dialysis session was done yesterday. No reported shortness of breath at this point in time. His MSSA ba cteremia is still being investigated and the patient is being considered for a TREY. On today's evaluation of 02/24/2024, the patient is essentially unchanged. Calm and comfortable, resting comfortably in bed. No significant respiratory distress. He remains on oxygen on room air with a pulse ox of 95%. No cough. No sputum production. No chest tightness. No wheezing. Obese, 17.8 with a hemoglobin of 8 and a platelet count of 236. BUN is 100 and the creatinine is at 7.1 and a sodium levels at 131. The patient has end-stage renal disease and the patient undergoes hemodialysis 3 times a week and he is scheduled to undergo hemodialysis today. Afebrile. Remains on IV cefazolin. Repeated blood cultures from 03/03/2024 on 02/20/2024 were negative. On 02/25/2024, seen the patient for a follow-up. Resting comfortably in bed on room air oxygen. No respiratory distress. Last hemodialysis session was yesterday. No chest pain. No shortness of breath. Hemodynamically stable. White cell count at 17 with a hemoglobin 8.1. INR is at 3.3. BUN 67 with a creatinine of 5.25 and a potassium level of 3.9. Afebrile for now. Repeat blood cultures have been negative thus far. Patient is being seen for a follow-up. Unfortunately, the TREY that was completed today showed evidence of infective endocarditis. The patient had a large vegetation noted over the anterior mitral valve leaflet consistent with diagnosis of infective endocarditis. The patient has a bioprosthetic aortic valve also. Note that he remains quite lethargic. He is awake alert and communicating. Weakness was noted in the left upper and left lower extremity and this has evolved over the past 24 to 48 hours. Septic emboli to the brain was suspected. Based on that, CAT scan of the brain was done and showed no evidence of any acute intracranial process and there was some nonspecific white matter changes likely secondary to chronic small vessel ischemic changes. Antibiotics has been switched to nafcillin. The repeat blood cultures from 02/19/2024 and 02/20/2024 were negative. White cell count is 16.7 with a hemoglobin of 8.4 and a platelet count of 227. INR is at 4.7. BUN is 94 with a creatinine of 7.05 and sodium is at 130 with a potassium level of 5.0. Consultation was placed for cardiothoracic surgery regarding the endocarditis. The patient undergoes hemodialysis 3 times a week. No significant shortness of breath. This morning, he was on room air with a pulse ox of 99%. No hypotension. No cardiac arrhythmias noted. 02/27/2024, the patient is being seen for a follow-up. He is currently on room air oxygen. Resting comfortably in bed. Considerable weakness in the left upper and left lower extremity. Remains on IV nafcillin. The patient is clinically and hemodynamically stable. As mentioned, the patient had a large vegetation involving the anterior mitral leaflet and a TREY it was done on 02/26/2024. CAT scan of the brain showed no acute abnormalities. The patient denies having any shortness of breath. No chest pain. He remains on anticoagulation with warfarin and the PT/INR is supratherapeutic and this is being managed by the medical team. No other significant issues otherwise. No skin rashes. No hematuria. Very much weak and debilitated. 02/28/2024, patient is being seen for a follow-up. Yet arousable. Follows simple commands. Left-sided weakness is obvious. MRI of the brain was also done and showed no evidence bilateral numerous peripheral and deep punctate diffusion hyperintensities correlating with c his history of infective endocarditis and ischemic changes related to septic embolism. Hemodynamically stable on IV nafcillin. Remains anticoagulated with warfarin. Remains on Demadex. No respiratory distress. Remains on room air oxygen. Afebrile. Blood cultures are negative. WBC is at 12.7 with a hemoglobin 8.6, INR is at 3.0, sodium is at 127, BUN 75 with a creatinine of 6.1. Patient was seen by nephrology. The plan is to undergo dialysis on Thursday. In terms of the atrial fibrillation, rate is controlled and the patient is on Lopressor for rate control and the patient is also on anticoagulation with warfarin. On 02/29/2024, the patient is clinically unchanged. He is following commands and answering questions. Nevertheless, his response is quite delayed. He does have septic emboli to the brain and the patient has mitral valve endocarditis and the patient remains on the nafcillin. Other complaints otherwise for now. Nephrology on the case and the patient is undergoing scheduled dialysis. He remains on torsemide. He is on PhosLo. Blood work shows a white cell count of 14, hemoglobin 8.3 and a platelet count of 209. INR is at 2.2. BUN is at 90 7.2. Sodium is 125 and a Potassium Level Is at 5.1. Patient Is Undergoing Hemodialysis MWF. No Shortness of Breath. No Cardiac Arrhythmias. Repeat Blood Cultures Were Negative. Remains on IV Nafcillin. Cardiothoracic Surgery Is on the Case. Patient was evaluated today on 03/01/2024, patient is now being treated for infective endocarditis of the mitral valve, Staph aureus sepsis, bacteremia, left-sided weakness with altered mental status. Patient had history of aortic valve stenosis and previous TAVR placement at the [facility] 07/27, patient is also known to have end-stage renal disease on hemodialysis and he has COPD and obstructive sleep apnea syndrome. Patient seems to be comfortable, he is being considered for mitral valve replacement in the future, and he is also being considered for cardiac catheterization to evaluate coronary artery disease prior. Patient is clearly a high surgical risk. WBC count today is 11 hemoglobin is 7.5 INR 1.8 sodium 127 BUN is 50 creatinine 4.97. Chest x-ray from a week ago showed mostly pulmonary vascular congestion and congestive heart failure. There was also evidence of calcification of the pleura suggestive of prior asbestos exposure. Patient was evaluated today on 03/02/2024, patient is resting in bed, is at bedside, he is on BiPAP still receiving treatment for infective endocarditis, apparently the has been in contact with the [facility], and she is clearly aware of the poor condition and the prognosis at this point, she did contact apparently the nurse practitioner at the [facility] regarding his condition, considering the patient had TAVR surgery back in August of 2023. definitely would like to have surgical intervention to be done if any at the [facility]. Meantime the patient is receiving antibiotics for his infective endocarditis.And he will eventually need transfer to a rehab facility before any surgical intervention to be considered WBC count today is 11.1 hemoglobin 7.5 INR is 1.8 sodium 127 potassium 4.9 BUN is 67 creatinine 6.68, patient remains on hemodialysis Thursday and Thursday. Objective - Vital Signs Vital signs: Vital Signs Temp 97.6 F 03/02/24 08:00 Pulse 85 03/02/24 14:00 Resp 18 03/02/24 14:00 BP 136/85 03/02/24 12:00 Pulse Ox 97 03/02/24 12:00 FiO2 30 03/02/24 08:49 Intake & Output 03/01/24 03/02/24 03/02/24 18:59 06:59 18:59 Intake Total 10 240 Output Total 0 125 0 Balance 0 -115 240 Weight 105 kg Intake: IV 10 Invasive Line 5 10 Oral 240 Output: Urine 0 125 Stool 0 Other: Voiding Method Diaper External Catheter External Catheter External Catheter # Bowel Movements 0 1 - Exam CONSTITUTIONAL: Appears comfortable, cooperative, no acute distress, patient is BiPAP FiO2 at 50% RESPIRATORY: Minimal crackles at the bases no rhonchi no wheezes CARDIOVASCULAR: S1, S2 present, systolic murmur present. Irregular rate and rhythm, controlled atrial fibrillation on telemetry. Palpable peripheral pulses bilaterally. No edema present. No calf pain or tenderness noted GASTROINTESTINAL: Abdomen soft, nontender, nondistended. Active bowel sounds present 4 quadrants. INTEGUMENTARY: Skin is warm and dry with evidence of good perfusion NEUROLOGIC: Cranial nerves II through XII intact, slow to respond but is completely oriented and following commands MUSKULOSKELETAL: Able to move all extremities, generalized weakness present, left greater than right PSYCHIATRIC: Alert and oriented to person place and time - Labs CBC & Chem 7: 03/02/24 12:05 03/02/24 12:05 Labs: Abnormal Lab Results - Last 24 Hours (Table) 03/01/24 03/01/24 03/02/24 Range/Units 16:53 19:51 05:48 WBC (3.8-10.6) k/uL RBC (4.30-5.90) m/uL Hgb (13.0-17.5) gm/dL Hct (39.0-53.0) % Neutrophils # (1.3-7.7) k/uL Lymphocytes # (1.0-4.8) k/uL PT (10.0-12.5) sec INR (<1.2) Sodium (137-145) mmol/L Chloride (98-107) mmol/L BUN (9-20) mg/dL Creatinine (0.66-1.25) mg/dL POC Glucose (mg/dL) 201 H 262 H 114 H (70-110) mg/dL Calcium (8.4-10.2) mg/dL 03/02/24 03/02/24 03/02/24 Range/Units 12:05 12:05 12:05 WBC 11.1 H (3.8-10.6) k/uL RBC 2.42 L (4.30-5.90) m/uL Hgb 7.5 L (13.0-17.5) gm/dL Hct 23.4 L (39.0-53.0) % Neutrophils # 9.3 H (1.3-7.7) k/uL Lymphocytes # 0.8 L (1.0-4.8) k/uL PT 17.9 H (10.0-12.5) sec INR 1.8 H (<1.2) Sodium 127 L (137-145) mmol/L Chloride 90 L (98-107) mmol/L BUN 67 H (9-20) mg/dL Creatinine 6.68 H (0.66-1.25) mg/dL POC Glucose (mg/dL) (70-110) mg/dL Calcium 7.3 L (8.4-10.2) mg/dL Assessment and Plan Assessment: Impression: Acute infective endocarditis involving the anterior leaflet of the mitral valve Staph aureus bacteremia and sepsis 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 Anemia of chronic disease End-stage renal disease, on hemodialysis History of underlying COPD Obstructive sleep apnea syndrome, on BiPAP Ex-smoker Recommendation: Continue antibiotics Continue hemodialysis, Thursday has been aware of his condition and she was informed by surgery with the overall picture Patient is extremely high surgical risk. Continue medical management in the meantime. Patient is presently on nafcillin Continue bronchodilators/DuoNeb Will continue to follow while inpatient Time with Patient: Less than 30
[2024-03-02] MEDS: METOPROLOL TARTRATE 5 MG/5 ML VIAL IVP STA (16:04)
[2024-03-02 16:35] LABS: Glucose,Whole Blood 132 mg/dL (70-110)
[2024-03-02] MEDS: WARFARIN 2.5 MG TAB PO ONE (18:09)
[2024-03-02 20:10] LABS: Glucose,Whole Blood 130 mg/dL (70-110)
--- NOTE | 2024-03-02 21:13 | P.PN ---
Subjective Patient is seen for follow-up for end-stage renal disease. Maintained on Thursday schedule. No significant complaints today. patient has been evaluated by cardiothoracic surgery for mitral valve vegetation. Patient at high risk for complications. Echocardiogram will be repeated after antibiotic therapy. Objective - Vital Signs Vital signs: Vital Signs Temp 97.5 F L 03/02/24 19:07 Pulse 94 03/02/24 19:07 Resp 19 03/02/24 19:07 BP 119/69 03/02/24 19:07 Pulse Ox 97 03/02/24 15:56 FiO2 30 03/02/24 15:48 Intake & Output 03/02/24 03/02/24 03/03/24 06:59 18:59 06:59 Intake Total 10 240 700 Output Total 125 0 1280 Balance -115 240 -580 Weight 105 kg Intake: IV 10 Invasive Line 5 10 Oral 240 Hemodialysis 700 Output: Urine 125 Stool 0 Hemodialysis 1280 Other: Voiding Method External Catheter External Catheter # Bowel Movements 1 - Exam patient is awake, comfortable, no acute distress. Examination of the heart S1 and S2 Examination of the lungs bilateral breath sounds are heard decreased breath sounds at the bases Abdomen is soft nontender Examination of lower extremities shows no significant edema. 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 - Labs CBC & Chem 7: 03/02/24 12:05 03/02/24 12:05 Labs: Abnormal Lab Results - Last 24 Hours (Table) 03/02/24 03/02/24 03/02/24 Range/Units 05:48 12:05 12:05 WBC 11.1 H (3.8-10.6) k/uL RBC 2.42 L (4.30-5.90) m/uL Hgb 7.5 L (13.0-17.5) gm/dL Hct 23.4 L (39.0-53.0) % Neutrophils # 9.3 H (1.3-7.7) k/uL Lymphocytes # 0.8 L (1.0-4.8) k/uL PT 17.9 H (10.0-12.5) sec INR 1.8 H (<1.2) Sodium (137-145) mmol/L Chloride (98-107) mmol/L BUN (9-20) mg/dL Creatinine (0.66-1.25) mg/dL POC Glucose (mg/dL) 114 H (70-110) mg/dL Calcium (8.4-10.2) mg/dL 03/02/24 03/02/24 03/02/24 Range/Units 12:05 16:34 20:09 WBC (3.8-10.6) k/uL RBC (4.30-5.90) m/uL Hgb (13.0-17.5) gm/dL Hct (39.0-53.0) % Neutrophils # (1.3-7.7) k/uL Lymphocytes # (1.0-4.8) k/uL PT (10.0-12.5) sec INR (<1.2) Sodium 127 L (137-145) mmol/L Chloride 90 L (98-107) mmol/L BUN 67 H (9-20) mg/dL Creatinine 6.68 H (0.66-1.25) mg/dL POC Glucose (mg/dL) 132 H 130 H (70-110) mg/dL Calcium 7.3 L (8.4-10.2) mg/dL Assessment and Plan Assessment: 1. End-stage renal disease on hemodialysis on a Thursday schedule via left arm AV graft. AV graft is functional. Status post fistulogram and angioplasty 02/16/2024 2. A. fib with RVR status post Cardizem drip 3. MSSA bacteremia on antibiotics. ID following. TREY showed a large vegetation on the mitral valve. CTS following. Septic emboli noted on MRI. No surgical intervention planned at this time due to being high risk. Repeat blood cultures are negative. Patient will need cardiac cath if surgery is planned down the road. 4. Volume overload, improved 5. Acute hypoxic respiratory failure secondary to volume overload, improved. Plan: hemodialysis on a Thursday schedule. Continue with IV antibiotics. Encourage increase oral intake.
[2024-03-03 06:29] LABS: Glucose,Whole Blood 181 mg/dL (70-110)
[2024-03-03 09:37] LABS: INR 2.2 (<1.2); Prothrombin Time 21.5 sec (10.0-12.5)
[2024-03-03 11:25] LABS: Glucose,Whole Blood 262 mg/dL (70-110)
--- NOTE | 2024-03-03 13:08 | P.PN ---
Subjective Progress Note Date: 03/02/24 Principal diagnosis: Reason for follow-up with MSSA bacteremia Patient is a 78-year-old male with a past medical his significant for diabetes mellitus hypertension hyperlipidemia atrial fibrillation history of end-stage renal disease on dialysis through left arm AV graft patient has been brought into the hospital for fever weakness and did have bacteremia.Patient did have a TREY completed on 02/26/2024 with evidence of a large vegetation on the anterior mitral leaflet there was no mention of any vegetation on the bioprosthetic aortic valve. On today's evaluation that is 03/02/2024,the patient denies any fever or any chills, patient is breathing comfortably on room air, the patient denies chest pain shortness of breath and no significant cough, patient denies abdominal pain, no nausea vomiting or diarrhea. Patient white count is down to 11.1, creatinine 6.68 INR is 1.8 Objective - Vital Signs Vital signs: Vital Signs Temp 97.6 F 03/02/24 08:00 Pulse 85 03/02/24 14:00 Resp 18 03/02/24 14:00 BP 136/85 03/02/24 12:00 Pulse Ox 97 03/02/24 12:00 FiO2 30 03/02/24 08:49 Intake & Output 03/01/24 03/02/24 03/02/24 18:59 06:59 18:59 Intake Total 10 240 Output Total 0 125 0 Balance 0 -115 240 Weight 105 kg Intake: IV 10 Invasive Line 5 10 Oral 240 Output: Urine 0 125 Stool 0 Other: Voiding Method Diaper External Catheter External Catheter External Catheter # Bowel Movements 0 1 - Exam GENERAL DESCRIPTION: An elderly male lying in bed in no distress RESPIRATORY SYSTEM: Unlabored breathing , decreased breath sounds at bases HEART: S1 S2 regular rate and rhythm , ABDOMEN: Soft , no tenderness - Labs CBC & Chem 7: 03/02/24 12:05 03/02/24 12:05 Labs: Abnormal Lab Results - Last 24 Hours (Table) 03/01/24 03/01/24 03/02/24 Range/Units 16:53 19:51 05:48 WBC (3.8-10.6) k/uL RBC (4.30-5.90) m/uL Hgb (13.0-17.5) gm/dL Hct (39.0-53.0) % Neutrophils # (1.3-7.7) k/uL Lymphocytes # (1.0-4.8) k/uL PT (10.0-12.5) sec INR (<1.2) Sodium (137-145) mmol/L Chloride (98-107) mmol/L BUN (9-20) mg/dL Creatinine (0.66-1.25) mg/dL POC Glucose (mg/dL) 201 H 262 H 114 H (70-110) mg/dL Calcium (8.4-10.2) mg/dL 03/02/24 03/02/24 03/02/24 Range/Units 12:05 12:05 12:05 WBC 11.1 H (3.8-10.6) k/uL RBC 2.42 L (4.30-5.90) m/uL Hgb 7.5 L (13.0-17.5) gm/dL Hct 23.4 L (39.0-53.0) % Neutrophils # 9.3 H (1.3-7.7) k/uL Lymphocytes # 0.8 L (1.0-4.8) k/uL PT 17.9 H (10.0-12.5) sec INR 1.8 H (<1.2) Sodium 127 L (137-145) mmol/L Chloride 90 L (98-107) mmol/L BUN 67 H (9-20) mg/dL Creatinine 6.68 H (0.66-1.25) mg/dL POC Glucose (mg/dL) (70-110) mg/dL Calcium 7.3 L (8.4-10.2) mg/dL Assessment and Plan (1) Leukocytosis Current Visit: Yes Status: Acute Code(s): D72.829 - ELEVATED WHITE BLOOD CELL COUNT, UNSPECIFIED SNOMED Code(s): 018798312 (2) MSSA bacteremia Current Visit: Yes Status: Acute Code(s): R78.81 - BACTEREMIA; B95.61 - METHICILLIN SUSCEP STAPH INFCT CAUSING DIS CLASSD ELSWHR SNOMED Code(s): 216781751 Plan: 1patient with MSSA bacteremia in this patient who do have a history of renal failure with on hemodialysis with a left arm fistula site with presentation to the hospital with weakness fall and urinary frequency however UA is negative abdominal soft no significant respiratory symptoms or hypoxemia question of possible related to the fistula site which was nonfunctioning and did have angiogram and angioplasty done this admission. 2blood cultures repeated 02/17/2024 came back positive blood culture has been repeated 02/19/2024 as well as 02/20/2024 are so far negative keeping in mind his TAVR procedure, cardiology has been consulted for TREY which was completed 02/25 with evidence of large vegetation on the anterior mitral valve leaflet did not mention any vegetation on the bioprosthetic aortic valve 3-CT surgery has been consulted because of the large vegetation patient has been evaluated by CT surgery recommending no surgical intervention at this point, patient family is getting an opinion from your family regarding surgical intervention 4-patient is covered with Naficillin , patient did have PICC line and continue with Naficillin. Dictation was produced using [employer] dictation software. please excuse any grammatical, word or spelling errors. Time with Patient: Less than 30
--- NOTE | 2024-03-03 13:10 | P.PN ---
Subjective Progress Note Date: 03/03/24 Principal diagnosis: Reason for follow-up with MSSA bacteremia Patient is a 78-year-old male with a past medical his significant for diabetes mellitus hypertension hyperlipidemia atrial fibrillation history of end-stage renal disease on dialysis through left arm AV graft patient has been brought into the hospital for fever weakness and did have bacteremia.Patient did have a TREY completed on 02/26/2024 with evidence of a large vegetation on the anterior mitral leaflet there was no mention of any vegetation on the bioprosthetic aortic valve. On today's evaluation that is 03/03/2024,the patient did have low-grade fever 100.5 last night however remains to be afebrile since then, patient is on room air not requiring supplemental oxygen and denies any shortness of breath no chest pain or cough.Patient denies having any nausea or vomiting, no abdominal pain and no diarrhea has been reported. No CBC was done today's INR is 2.2 blood culture repeat has been negative Objective - Vital Signs Vital signs: Vital Signs Temp 98.2 F 03/03/24 08:00 Pulse 85 03/03/24 08:00 Resp 18 03/03/24 08:00 BP 143/61 03/03/24 08:00 Pulse Ox 90 L 03/03/24 08:00 FiO2 30 03/03/24 03:43 Intake & Output 03/02/24 03/03/24 03/03/24 18:59 06:59 18:59 Intake Total 240 710 Output Total 0 1555 Balance 240 -845 Weight 105 kg Intake: IV 10 Invasive Line 6 10 Oral 240 Hemodialysis 700 Output: Urine 275 Stool 0 Hemodialysis 1280 Other: Voiding Method External Catheter External Catheter External Catheter # Bowel Movements 1 - Exam GENERAL DESCRIPTION: An elderly male lying in bed in no distress RESPIRATORY SYSTEM: Unlabored breathing , decreased breath sounds at bases HEART: S1 S2 regular rate and rhythm , ABDOMEN: Soft , no tenderness - Labs CBC & Chem 7: 03/02/24 12:05 03/02/24 12:05 Labs: Abnormal Lab Results - Last 24 Hours (Table) 03/02/24 03/02/24 03/03/24 Range/Units 16:34 20:09 06:27 PT (10.0-12.5) sec INR (<1.2) POC Glucose (mg/dL) 132 H 130 H 181 H (70-110) mg/dL 03/03/24 03/03/24 Range/Units 08:26 11:23 PT 21.5 H (10.0-12.5) sec INR 2.2 H (<1.2) POC Glucose (mg/dL) 262 H (70-110) mg/dL Assessment and Plan (1) Leukocytosis Current Visit: Yes Status: Acute Code(s): D72.829 - ELEVATED WHITE BLOOD CELL COUNT, UNSPECIFIED SNOMED Code(s): 997657469 (2) MSSA bacteremia Current Visit: Yes Status: Acute Code(s): R78.81 - BACTEREMIA; B95.61 - METHICILLIN SUSCEP STAPH INFCT CAUSING DIS CLASSD ELSWHR SNOMED Code(s): 886059275 Plan: 1patient with MSSA bacteremia in this patient who do have a history of renal failure with on hemodialysis with a left arm fistula site with presentation to the hospital with weakness fall and urinary frequency however UA is negative abdominal soft no significant respiratory symptoms or hypoxemia question of possible related to the fistula site which was nonfunctioning and did have angiogram and angioplasty done this admission. 2blood cultures repeated 02/17/2024 came back positive blood culture has been repeated 02/19/2024 as well as 02/20/2024 are so far negative keeping in mind his TAVR procedure, cardiology has been consulted for TREY which was completed 02/26/2024 with evidence of large vegetation on the anterior mitral valve leaflet did not mention any vegetation on the bioprosthetic aortic valve 3-CT surgery has been consulted because of the large vegetation patient has been evaluated by CT surgery recommending no surgical intervention at this point, patient family is getting an opinion from [facility] awaiting their recommendation as per discussion with the family member 4-patient did have PICC line and continue with Naficillin and monitor clinical course closely. Dictation was produced using [employer] dictation software. please excuse any grammatical, word or spelling errors. Time with Patient: Less than 30
--- NOTE | 2024-03-03 15:11 | P.PN ---
Subjective Progress Note Date: 03/03/24 Hospital Course: Patient is a 78-year-old male with with known diabetes, atrial fibrillation anticoagulated with Coumadin, prior bioprosthetic aortic valve replacement, dyslipidemia, end-stage renal disease on hemodialysis Thursday/Thursday/Thursday, and BPH who presented to the emergency department due to confusion and weakness. He had previously been to [facility] where he was noted to have a fever and elevated heart rate he was then discharged from the emergency department. When he went to go to dialysis they terminated after 1 hour due to a fever. On arrival to the emergency department he was noted to be febrile to 104.1 with a heart rate of 140. Initial laboratory analysis was remarkable for white blood cell count 19.4, platelets 131, lactic acid 2.6, troponin 0.12, and renal function consistent with his known dialysis. Influenza A/B/RSV/COVID-19 testing was negative. Initial chest x-ray demonstrated pulmonary vascular congestion. Patient was admitted for sepsis of unknown etiology and A-fib with RVR. He was to started on vancomycin and cefepime as well as a Cardizem drip. Critical care and cardiology were consulted. Echocardiogram was performed which demonstrated ejection fraction of 40 to 45% with mild to moderate perivalvular leak of his aortic valve replacement. Vascular surgery was consulted as his dialysis access is not working. And on 02/15 he underwent left upper extremity fistulogram with transluminal ballooning and thrombolysis at proximal aspect of graft. He then underwent hemodialysis and became slightly hypotensive requiring initiation of norepinephrine. He was subsequently transferred to the ICU. He had melanic stools. His hemoglobin stabilized and he had a recent outpatient colonoscopy without active bleeding. Blood cultures came back positive for MSSA. Patient's antibiotics switched to nafcillin. TREY showed large vegetation on the anterior mitral leaflet consistent with infective endocarditis. Patient during hospitalization was also confused with left-sided weakness. He had an MRI done that showed numerous peripheral and deep punctate diffuse hyperintensities compatible with acute ischemia secondary to septic emboli. There was concern for possible aspiration. Speech therapy was consulted. Spee ch therapy recommended dysphagia 1 diet. This can be advanced once mentation improves. Patient's blood cultures done on 02/18 and 02/20/2024 were negative. I discussed with CT surgery who said patient does not need any intervention at this time and patient can follow-up with cardiology outpatient for repeat echocardiogram and also with their service. Intervention will be done outpatient if patient continues to have persistent endocarditis on echocardiogram. Plan is to discharge the patient to shelter facility. Patient seen this morning. He is following some simple commands. Physical exam General examination -mild to moderately confused, NAD Heart - + S1S2 no murmurs Lungs -diminished breath sounds bilaterally Abdomen soft NT ND +ve BS Extremities - No edema [employer] -left upper and lower extremity weakness Psych - Calm and cooperative Assessment and plan MSSA bacteremia with sepsis Infective endocarditis of the mitral valve Patient currently on nafcillin Repeat blood cultures negative Discussed with CT surgery who said no surgery at this time and patient to follow-up outpatient Discussed with nephrology who said okay for PICC line. PICC line has been ordered Infectious disease recommending 5 more weeks and ampicillin on discharge End-stage renal disease Nephrology on board Malfunction of the AV graft Status post angioplasty and thrombolysis Vascular surgery signed off Acute toxic metabolic encephalopathy secondary to acute ischemia from septic emboli Management as above for endocarditis Will consult neurology Melena with possible lower GI bleed Resolved Patient restarted on Coumadin No overt signs of bleeding Hemoglobin this morning is stable at 7.5 Acute exacerbation of systolic heart failure with an EF of 40-45% Volume status to be managed with dialysis Atrial fibrillation with RVR Heart rate now controlled Patient restarted on Coumadin INR this morning is 1.8 Type II non-ST elevation [place] Likely due to sepsis History of TAVR Stable Thrombocytopenia likely due to sepsis Resolved type 2 diabetes mellitus Resume current insulin regimen and titrate as needed DVT prophylaxis: Coumadin Disposition: Patient is stable for discharge to shelter facility once cleared by neurology. Of note is seeking second opinion from [facility]. I have discussed with the patient's son and daughter that plan is to discharge the patient tomorrow to a facility if cleared by neurology. They have agreed to the plan. Objective - Vital Signs Vital signs: Vital Signs Temp 98.2 F 03/03/24 08:00 Pulse 85 03/03/24 14:00 Resp 18 03/03/24 14:00 BP 159/66 03/03/24 12:00 Pulse Ox 89 L 03/03/24 12:00 FiO2 30 03/03/24 03:43 Intake & Output 03/02/24 03/03/24 03/03/24 18:59 06:59 18:59 Intake Total 240 710 118 Output Total 0 1555 0 Balance 240 -845 118 Weight 105 kg Intake: IV 10 Invasive Line 6 10 Oral 240 118 Hemodialysis 700 Output: Urine 275 Stool 0 0 Hemodialysis 1280 Other: Voiding Method External Catheter External Catheter External Catheter # Bowel Movements 1 0 - Labs CBC & Chem 7: 03/02/24 12:05 03/02/24 12:05 Labs: Abnormal Lab Results - Last 24 Hours (Table) 03/02/24 03/02/24 03/03/24 Range/Units 16:34 20:09 06:27 PT (10.0-12.5) sec INR (<1.2) POC Glucose (mg/dL) 132 H 130 H 181 H (70-110) mg/dL 03/03/24 03/03/24 Range/Units 08:26 11:23 PT 21.5 H (10.0-12.5) sec INR 2.2 H (<1.2) POC Glucose (mg/dL) 262 H (70-110) mg/dL
--- NOTE | 2024-03-03 15:33 | P.PN ---
Subjective Progress Note Date: 03/03/24 Principal diagnosis: Acute infective endocarditis/anterior leaflet of the mitral valve On today's evaluation of 02/22/2024, seen the patient for a follow-up. The patient is currently undergoing hemodialysis and is resting comfortably in bed while awaiting a BiPAP at a pressure of 10/5 with an FiO2 of 30%. No significant respiratory distress at this point in time. Noted the patient had staphylococcal bacteremia/MSSA and the patient is currently on IV cefazolin. Pulse ox is in the order of 94% while wearing the BiPAP. No labs are available from today. Yesterday's labs were noted. The white cell count at 13.7 with a hemoglobin of 8.1 and a platelet count of 140. The most recent chest x-ray from 02/18/2024 showed cardiomegaly and mild pulm vascular congestion. No evidence of any consolidation or airspace disease. Echocardiogram on 02/16/2024 showed left-ventricular ejection fraction of 40 to 45%, global hypokinesis, moderately decreased LV function, the aortic valve had some mild to moderate para valvular leak otherwise, no other significant valvular abnormalities noted. The patient is otherwise calm and comfortable. His comorbid conditions include end-stage renal disease on hemodialysis 3 times a week and the patient has a malfunctioning AV graft and the patient is status post angioplasty and thrombolysis of the left subclavian vein. Nephrology on the case. Vascular surgery is also on the case. Hemoglobin is stable for now and there is no evidence of any GI bleeding. The patient has been anticoagulated regarding chronic atrial fibrillation. The patient has hyperlipidemia, diabetes mellitus type 2 as comorbid conditions. The patient is post TAVR procedure with some mild to moderate aortic valvular leak. 02/23/2024, the patient is being seen for a follow-up. This patient is 78 and the patient has MSSA septicemia currently on IV cefazolin. The most recent follow-up blood cultures from [facility] on 02/20/2024 were negative. The patient sander ins hemodynamically stable. On today's blood work, there is a white cell count of 15.5 with a hemoglobin of 8 and a platelet count of 211. The sodium level is 132, BUN 77 creatinine 5.38 and a potassium level is at 3.9. INR is currently at 3.9. Patient remains on IV cefazolin. The patient is on Levemir insulin 24 units at bedtime along with NovoLog 2 units with meals + scale coverage. Remain s on Demadex 40 mg p.o. daily. Remains on Flomax. The CAT scan of the brain was done today and showed no acute abnormalities and there was some nonspecific white matter changes likely secondary to chronic small vessel ischemic disease. At the same time, a chest x-ray was repeated today and shows essentially stable findings with some calcification along the pleural surface and the right and mild pulm vessel congestion without any significant interval changes compared to the earlier chest x-ray. Respiratory status is stable. The patient is currently off the BiPAP initially at 2 L and subsequently out of her oxygen with a pulse ox of 96%. The patient is also being seen by infectious disease. TREY has been ordered. The patient is being seen by nephrology. Regarding his end-stage renal disease and the patient is undergoing hemodialysis MWF. No problems with dialysis and his last dialysis session was done yesterday. No reported shortness of breath at this point in time. His MSSA ba cteremia is still being investigated and the patient is being considered for a TREY. On today's evaluation of 02/24/2024, the patient is essentially unchanged. Calm and comfortable, resting comfortably in bed. No significant respiratory distress. He remains on oxygen on room air with a pulse ox of 95%. No cough. No sputum production. No chest tightness. No wheezing. Obese, 17.8 with a hemoglobin of 8 and a platelet count of 236. BUN is 100 and the creatinine is at 7.1 and a sodium levels at 131. The patient has end-stage renal disease and the patient undergoes hemodialysis 3 times a week and he is scheduled to undergo hemodialysis today. Afebrile. Remains on IV cefazolin. Repeated blood cultures from 03/03/2024 on 02/20/2024 were negative. On 02/25/2024, seen the patient for a follow-up. Resting comfortably in bed on room air oxygen. No respiratory distress. Last hemodialysis session was yesterday. No chest pain. No shortness of breath. Hemodynamically stable. White cell count at 17 with a hemoglobin 8.1. INR is at 3.3. BUN 67 with a creatinine of 5.25 and a potassium level of 3.9. Afebrile for now. Repeat blood cultures have been negative thus far. Patient is being seen for a follow-up. Unfortunately, the TREY that was completed today showed evidence of infective endocarditis. The patient had a large vegetation noted over the anterior mitral valve leaflet consistent with diagnosis of infective endocarditis. The patient has a bioprosthetic aortic valve also. Note that he remains quite lethargic. He is awake alert and communicating. Weakness was noted in the left upper and left lower extremity and this has evolved over the past 24 to 48 hours. Septic emboli to the brain was suspected. Based on that, CAT scan of the brain was done and showed no evidence of any acute intracranial process and there was some nonspecific white matter changes likely secondary to chronic small vessel ischemic changes. Antibiotics has been switched to nafcillin. The repeat blood cultures from 02/19/2024 and 02/20/2024 were negative. White cell count is 16.7 with a hemoglobin of 8.4 and a platelet count of 227. INR is at 4.7. BUN is 94 with a creatinine of 7.05 and sodium is at 130 with a potassium level of 5.0. Consultation was placed for cardiothoracic surgery regarding the endocarditis. The patient undergoes hemodialysis 3 times a week. No significant shortness of breath. This morning, he was on room air with a pulse ox of 99%. No hypotension. No cardiac arrhythmias noted. 02/27/2024, the patient is being seen for a follow-up. He is currently on room air oxygen. Resting comfortably in bed. Considerable weakness in the left upper and left lower extremity. Remains on IV nafcillin. The patient is clinically and hemodynamically stable. As mentioned, the patient had a large vegetation involving the anterior mitral leaflet and a TREY it was done on 02/26/2024. CAT scan of the brain showed no acute abnormalities. The patient denies having any shortness of breath. No chest pain. He remains on anticoagulation with warfarin and the PT/INR is supratherapeutic and this is being managed by the medical team. No other significant issues otherwise. No skin rashes. No hematuria. Very much weak and debilitated. 02/28/2024, patient is being seen for a follow-up. Yet arousable. Follows simple commands. Left-sided weakness is obvious. MRI of the brain was also done and showed no evidence bilateral numerous peripheral and deep punctate diffusion hyperintensities correlating with c his history of infective endocarditis and ischemic changes related to septic embolism. Hemodynamically stable on IV nafcillin. Remains anticoagulated with warfarin. Remains on Demadex. No respiratory distress. Remains on room air oxygen. Afebrile. Blood cultures are negative. WBC is at 12.7 with a hemoglobin 8.6, INR is at 3.0, sodium is at 127, BUN 75 with a creatinine of 6.1. Patient was seen by nephrology. The plan is to undergo dialysis on Thursday. In terms of the atrial fibrillation, rate is controlled and the patient is on Lopressor for rate control and the patient is also on anticoagulation with warfarin. On 02/29/2024, the patient is clinically unchanged. He is following commands and answering questions. Nevertheless, his response is quite delayed. He does have septic emboli to the brain and the patient has mitral valve endocarditis and the patient remains on the nafcillin. Other complaints otherwise for now. Nephrology on the case and the patient is undergoing scheduled dialysis. He remains on torsemide. He is on PhosLo. Blood work shows a white cell count of 14, hemoglobin 8.3 and a platelet count of 209. INR is at 2.2. BUN is at 90 7.2. Sodium is 125 and a Potassium Level Is at 5.1. Patient Is Undergoing Hemodialysis MWF. No Shortness of Breath. No Cardiac Arrhythmias. Repeat Blood Cultures Were Negative. Remains on IV Nafcillin. Cardiothoracic Surgery Is on the Case. Patient was evaluated today on 03/01/2024, patient is now being treated for infective endocarditis of the mitral valve, Staph aureus sepsis, bacteremia, left-sided weakness with altered mental status. Patient had history of aortic valve stenosis and previous TAVR placement at the [facility] 07/27, patient is also known to have end-stage renal disease on hemodialysis and he has COPD and obstructive sleep apnea syndrome. Patient seems to be comfortable, he is being considered for mitral valve replacement in the future, and he is also being considered for cardiac catheterization to evaluate coronary artery disease prior. Patient is clearly a high surgical risk. WBC count today is 11 hemoglobin is 7.5 INR 1.8 sodium 127 BUN is 50 creatinine 4.97. Chest x-ray from a week ago showed mostly pulmonary vascular congestion and congestive heart failure. There was also evidence of calcification of the pleura suggestive of prior asbestos exposure. Patient was evaluated today on 03/02/2024, patient is resting in bed, is at bedside, he is on BiPAP still receiving treatment for infective endocarditis, apparently the has been in contact with the [facility], and she is clearly aware of the poor condition and the prognosis at this point, she did contact apparently the nurse practitioner at the [facility] regarding his condition, considering the patient had TAVR surgery back in August of 2023. definitely would like to have surgical intervention to be done if any at the [facility]. Meantime the patient is receiving antibiotics for his infective endocarditis.And he will eventually need transfer to a rehab facility before any surgical intervention to be considered WBC count today is 11.1 hemoglobin 7.5 INR is 1.8 sodium 127 potassium 4.9 BUN is 67 creatinine 6.68, patient remains on hemodialysis Thursday and Thursday. Patient was reevaluated today on 03/03/24, basically the patient is about the same, remains on BiPAP, he is on 10/5/30%, continues to have left-sided weakness related to his CVA. Does not seem to be in any distress, remains on antibiotics for his underlying endocarditis, arrangement for rehab is in progress, Objective - Vital Signs Vital signs: Vital Signs Temp 98.2 F 03/03/24 08:00 Pulse 85 03/03/24 14:00 Resp 18 03/03/24 14:00 BP 159/66 03/03/24 12:00 Pulse Ox 89 L 03/03/24 12:00 FiO2 30 03/03/24 03:43 Intake & Output 03/02/24 03/03/24 03/03/24 18:59 06:59 18:59 Intake Total 240 710 118 Output Total 0 1555 0 Balance 240 -845 118 Weight 105 kg Intake: IV 10 Invasive Line 6 10 Oral 240 118 Hemodialysis 700 Output: Urine 275 Stool 0 0 Hemodialysis 1280 Other: Voiding Method External Catheter External Catheter External Catheter # Bowel Movements 1 0 - Exam CONSTITUTIONAL: Appears comfortable, cooperative, no acute distress, patient is BiPAP FiO2 10/5/30% RESPIRATORY: Clear bilaterally no rhonchi no wheezes CARDIOVASCULAR: S1, S2 present, systolic murmur present. Irregular rate and rhythm, controlled atrial fibrillation on telemetry. Palpable peripheral pulses bilaterally. No edema present. No calf pain or tenderness noted GASTROINTESTINAL: Abdomen soft, nontender, nondistended. Active bowel sounds present 4 quadrants. INTEGUMENTARY: Skin is warm and dry with evidence of good perfusion NEUROLOGIC: Cranial nerves II through XII intact, slow to respond but is comple tely oriented and following commands patient has mostly left-sided weakness related to his CVA MUSKULOSKELETAL: Able to move all extremities, generalized weakness present, left greater than right PSYCHIATRIC: Alert and oriented to person place and time - Labs CBC & Chem 7: 03/02/24 12:05 03/02/24 12:05 Labs: Abnormal Lab Results - Last 24 Hours (Table) 03/02/24 03/02/24 03/03/24 Range/Units 16:34 20:09 06:27 PT (10.0-12.5) sec INR (<1.2) POC Glucose (mg/dL) 132 H 130 H 181 H (70-110) mg/dL 03/03/24 03/03/24 Range/Units 08:26 11:23 PT 21.5 H (10.0-12.5) sec INR 2.2 H (<1.2) POC Glucose (mg/dL) 262 H (70-110) mg/dL Assessment and Plan Assessment: Impression: Acute infective endocarditis involving the anterior leaflet of the mitral valve Staph aureus bacteremia and sepsis History of CVA Anemia of chronic disease End-stage renal disease, on hemodialysis History of underlying COPD Obstructive sleep apnea syndrome, on BiPAP Ex-smoker Recommendation: Continue antibiotics/nafcillin Continue hemodialysis, Thursday Patient is extremely high surgical risk. Placement in rehab facility is in progress before further evaluation at the [facility]. Continue bronchodilators/DuoNeb Will continue to follow while inpatient Time with Patient: Less than 30
[2024-03-03 16:23] LABS: Glucose,Whole Blood 277 mg/dL (70-110)
[2024-03-03] MEDS: WARFARIN 2 MG TAB PO ONE (16:57)
--- NOTE | 2024-03-03 19:28 | P.PN ---
Subjective Patient is seen for follow-up for end-stage renal disease. Maintained on Thursday schedule. No significant complaints today. patient has been evaluated by cardiothoracic surgery for mitral valve vegetation. Patient at high risk for complications. No plans for surgical intervention at this time. Overall feeling slightly better. Objective - Vital Signs Vital signs: Vital Signs Temp 98.2 F 03/03/24 08:00 Pulse 85 03/03/24 14:00 Resp 18 03/03/24 14:00 BP 159/66 03/03/24 12:00 Pulse Ox 89 L 03/03/24 12:00 FiO2 30 03/03/24 03:43 Intake & Output 03/03/24 03/03/24 03/04/24 06:59 18:59 06:59 Intake Total 710 118 Output Total 1555 0 Balance -845 118 Intake: IV 10 Invasive Line 6 10 Oral 118 Hemodialysis 700 Output: Urine 275 Stool 0 Hemodialysis 1280 Other: Voiding Method External Catheter External Catheter # Bowel Movements 1 1 - Exam patient is awake, comfortable, no acute distress. Examination of the heart S1 and S2, systolic murmur Examination of the lungs bilateral breath sounds are heard decreased breath sounds at the bases Abdomen is soft nontender Examination of lower extremities shows no significant edema. 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 End-stage renal disease on hemodialysis on a Thursday schedule via left arm AV graft. AV graft is functional. Status post fistulogram and angioplasty 02/16/2024 2. A. fib with RVR status post Cardizem drip 3. MSSA bacteremia on antibiotics. ID following. TREY showed a large vegetation on the mitral valve. CTS following. Septic emboli noted on MRI. No surgical intervention planned at this time due to being high risk. Repeat blood cultures are negative. Patient will need cardiac cath if surgery is planned down the road. 4. Volume overload, improved 5. Acute hypoxic respiratory failure secondary to volume overload, improved. Plan: hemodialysis on a Thursday schedule. Continue with IV antibiotics. Encourage increase oral intake.
[2024-03-03 20:21] LABS: Glucose,Whole Blood 165 mg/dL (70-110)
[2024-03-03] MEDS: IPRATROPIUM-ALBUTEROL 3 ML NEB INHALATION PRN (21:04)
[2024-03-03 21:15] LABS: Glucose,Whole Blood 181 mg/dL (70-110)
[2024-03-03] MEDS: METOPROLOL TARTRATE 5 MG/5 ML VIAL IVP STA (21:18)
[2024-03-04 06:15] LABS: Glucose,Whole Blood 128 mg/dL (70-110)
[2024-03-04] MEDS: METOPROLOL TARTRATE 50 MG TAB PO SCH (08:22)
[2024-03-04 09:46] LABS: HCT 24.7 % (39.0-53.0); HGB 7.8 gm/dL (13.0-17.5); MCH 31.3 pg (25.0-35.0); MCHC 31.7 g/dL (31.0-37.0); MCV 98.9 fL (80.0-100.0); Macrocytosis Slight; Mean Platelet Volume 8.7; Platelet Count 198 k/uL (150-450); RDW 15.6 % (11.5-15.5); WBC 9.3 k/uL (3.8-10.6)
[2024-03-04 09:53] LABS: INR 1.7 (<1.2); Prothrombin Time 17.3 sec (10.0-12.5)
[2024-03-04 10:02] LABS: African American GFR (CKD) 10 (>60 ml/min/1.73 sqM); Anion Gap 7 mmol/L; Blood Urea Nitrogen 56 mg/dL (9-20); Calcium 7.6 mg/dL (8.4-10.2); Carbon Dioxide 30 mmol/L (22-30); Chloride 92 mmol/L (98-107); Glucose 128 mg/dL (74-99); Magnesium 2.1 mg/dL (1.6-2.3); Non-African American GFR(CKD) 8 (>60 ml/min/1.73 sqM); Potassium 4.3 mmol/L (3.5-5.1); Sodium 129 mmol/L (137-145)
[2024-03-04] MEDS: METOPROLOL TARTRATE 25 MG TAB ONE (10:23)
[2024-03-04] MEDS: METOPROLOL TARTRATE 5 MG/5 ML VIAL IVP STA (11:11)
[2024-03-04] MEDS ORDERED: ASPIRIN 81 MG PO SCH (11:15)
--- NOTE | 2024-03-04 11:16 | P.PN ---
Subjective Progress Note Date: 03/04/24 Hospital Course: Patient is a 78-year-old male with with known diabetes, atrial fibrillation anticoagulated with Coumadin, prior bioprosthetic aortic valve replacement, dyslipidemia, end-stage renal disease on hemodialysis Thursday/Thursday/Thursday, and BPH who presented to the emergency department due to confusion and weakness. He had previously been to [facility] where he was noted to have a fever and elevated heart rate he was then discharged from the emergency department. When he went to go to dialysis they terminated after 1 hour due to a fever. On arrival to the emergency department he was noted to be febrile to 104.1 with a heart rate of 140. Initial laboratory analysis was remarkable for white blood cell count 19.4, platelets 131, lactic acid 2.6, troponin 0.12, and renal function consistent with his known dialysis. Influenza A/B/RSV/COVID-19 testing was negative. Initial chest x-ray demonstrated pulmonary vascular congestion. Patient was admitted for sepsis of unknown etiology and A-fib with RVR. He was to started on vancomycin and cefepime as well as a Cardizem drip. Critical care and cardiology were consulted. Echocardiogram was performed which demonstrated ejection fraction of 40 to 45% with mild to moderate perivalvular leak of his aortic valve replacement. Vascular surgery was consulted as his dialysis access is not working. And on 02/15 he underwent left upper extremity fistulogram with transluminal ballooning and thrombolysis at proximal aspect of graft. He then underwent hemodialysis and became slightly hypotensive requiring initiation of norepinephrine. He was subsequently transferred to the ICU. He had melanic stools. His hemoglobin stabilized and he had a recent outpatient colonoscopy without active bleeding. Blood cultures came back positive for MSSA. Patient's antibiotics switched to nafcillin. TREY showed large vegetation on the anterior mitral leaflet consistent with infective endocarditis. Patient during hospitalization was also confused with left-sided weakness. He had an MRI done that showed numerous peripheral and deep punctate diffuse hyperintensities compatible with acute ischemia secondary to septic emboli. There was concern for possible aspiration. Speech therapy was consulted. Spee ch therapy recommended dysphagia 1 diet. This can be advanced once mentation improves. Patient's blood cultures done on 02/18 and 02/20/2024 were negative. I discussed with CT surgery who said patient does not need any intervention at this time and patient can follow-up with cardiology outpatient for repeat echocardiogram and also with their service. Intervention will be done outpatient if patient continues to have persistent endocarditis on echocardiogram. Plan is to discharge the patient to [facility] facility. Patient seen this morning. He is following some simple commands. 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 PICC line has been place d Infectious disease recommending 5 more weeks of nafcillin on discharge End-stage renal disease Nephrology on board Malfunction of the AV graft Status post angioplasty and thrombolysis Vascular surgery signed off Acute toxic metabolic encephalopathy secondary to acute ischemia from septic emboli Management as above for endocarditis I discussed with neurology Neurology recommending to repeat CT head and if negative to start the patient on aspirin in addition to the Coumadin Melena with possible lower GI bleed Resolved Patient restarted on Coumadin No overt signs of bleeding Hemoglobin this morning is stable at 7.8 Acute exacerbation of systolic heart failure with an EF of 40-45% Volume status to be managed with dialysis Atrial fibrillation with RVR Patient is now uncontrolled again Patient restarted on Coumadin INR this morning is 1.7 I increased patient's metoprolol to 75 mg p.o. twice daily I also ordered for 5 mg IV Lopressor Type II non-ST elevation UT Likely due to sepsis History of TAVR Stable Thrombocytopenia likely due to sepsis Resolved type 2 diabetes mellitus Resume current insulin regimen and titrate as needed DVT prophylaxis: Coumadin Disposition: Family is requesting for IPR at [facility]. Patient is back in A-fib with RVR today. If heart rate is controlled he be medically stable. Overall patient's prognosis is poor. Objective - Vital Signs Vital signs: Vital Signs Temp 98.5 F 03/03/24 20:45 Pulse 91 03/04/24 07:53 Resp 16 03/04/24 07:53 BP 163/52 03/04/24 07:53 Pulse Ox 95 03/04/24 07:53 FiO2 40 03/03/24 23:29 Intake & Output 03/03/24 03/04/24 03/04/24 18:59 06:59 18:59 Intake Total 118 Output Total 0 Balance 118 Intake: Oral 118 Output: Stool 0 Other: Voiding Method External Catheter External Catheter # Bowel Movements 1 - Labs CBC & Chem 7: 03/04/24 09:13 03/04/24 09:13 Labs: Abnormal Lab Results - Last 24 Hours (Table) 03/03/24 03/03/24 03/03/24 Range/Units 11:23 16:18 20:20 RBC (4.30-5.90) m/uL Hgb (13.0-17.5) gm/dL Hct (39.0-53.0) % RDW (11.5-15.5) % PT (10.0-12.5) sec INR (<1.2) Sodium (137-145) mmol/L Chloride (98-107) mmol/L BUN (9-20) mg/dL Creatinine (0.66-1.25) mg/dL Glucose (74-99) mg/dL POC Glucose (mg/dL) 262 H 277 H 165 H (70-110) mg/dL Calcium (8.4-10.2) mg/dL 03/03/24 03/04/24 03/04/24 Range/Units 21:14 06:13 09:13 RBC (4.30-5.90) m/uL Hgb (13.0-17.5) gm/dL Hct (39.0-53.0) % RDW (11.5-15.5) % PT 17.3 H (10.0-12.5) sec INR 1.7 H (<1.2) Sodium (137-145) mmol/L Chloride (98-107) mmol/L BUN (9-20) mg/dL Creatinine (0.66-1.25) mg/dL Glucose (74-99) mg/dL POC Glucose (mg/dL) 181 H 128 H (70-110) mg/dL Calcium (8.4-10.2) mg/dL 03/04/24 03/04/24 Range/Units 09:13 09:13 RBC 2.50 L (4.30-5.90) m/uL Hgb 7.8 L (13.0-17.5) gm/dL Hct 24.7 L (39.0-53.0) % RDW 15.6 H (11.5-15.5) % PT (10.0-12.5) sec INR (<1.2) Sodium 129 L (137-145) mmol/L Chloride 92 L (98-107) mmol/L BUN 56 H (9-20) mg/dL Creatinine 6.04 H (0.66-1.25) mg/dL Glucose 128 H (74-99) mg/dL POC Glucose (mg/dL) (70-110) mg/dL Calcium 7.6 L (8.4-10.2) mg/dL
[2024-03-04 11:32] LABS: Glucose,Whole Blood 178 mg/dL (70-110)
--- NOTE | 2024-03-04 11:51 | P.CNNES ---
History of Present Illness Consult date: 03/03/24 Requesting physician: Dot Ross Reason for Consult: Embolic strokes History of Present Illness: Patient is a 78-year-old right-handed male came to the hospital by ambulance on 02/15/2024. As per EMS flowsheet, patient has history of atrial fibrillation, and when they arrived on the scene, found patient sitting in his dialysis chair having finished 50% of treatment. Caregiver at the dialysis center said patient was in A-fib with a rate that went into the 140s and they could not finish his dialysis due to the rate. Patient is normally in atrial fibrillation. Patient's blood sugar was 266 mg/dL. He was otherwise alert and orient x 4 with strong and equal continuous pillowcase cutter strength and positive sensations in all extremities. Blood pressure was 130/70, heart rate 138, saturation 98%, respiration 20. Tem perature 37.8. 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 He could not get up. could not get him up. occupational therapist assistant were called and they helped him up. He was noted to have a temperature of 102. They asked some questions and he could not answer. He was taken to [facility] where he was evaluated and then discharged home. He came home, had breakfast, went for dialysis at around 10 AM. About an hour later, he was noted to have temperature of 104 and he was looking very sick therefore he was transferred directly to [facility]. He stayed in ICU for 2 days. Since in the hospital he has been very confused, not able to answer questions appropriately. He did not know his 's name although he was able to recognize her as his . He was found to have sepsis with bacteremia. Patient's also felt that he was acting like "stroke". He could not speak and he was noted to have weakness of the left side. He was having delayed processing thoughts. Patient's mentions that he had undergone aortic valve replacement in mid July 2023 at [facility]. He was placed on event monitor for a month and was diagnosed with he was thinking it was 1962, very confused. Atrial fibrillation in August 2023 and has been on warfarin since then. CT head performed on 02/23/2024 showed no acute process. Nonspecific white matter changes. Repeat CT head on 02/26/2024 also showed no change. MRI of the brain without contrast performed on 02/27/2024 revealed numerous peripheral and deep punctate diffusion hyperintensities, correlating with changes on inversion recovery sequences. Findings can be compatible with acute ischemic changes, such as associated with septic emboli. I personally reviewed MRI, agree with the findings. Patient had a TREY performed 02/25/2024, which revealed large vegetation noted over the anterior mitral leaflet consistent with a diagnosis of infective endocarditis. The patient also has a bioprosthetic valve in aortic position. There is no vegetation over the aortic valve. There is mild to moderate aortic regurgitation noted. There is no evidence of left to right shunt by color-flow Doppler or [id number] shunt by agitated saline contrast study. Patient's blood cultures were positive for Staph aureus on 02/15/2024 and 02/17/2024. Patient currently taking warfarin, Demadex, nafcillin 2 g every 4 hours, midodrine, metoprolol. At present: Patient's mentions that he is very slow to respond, knows his name recognizes his and son. Still weak on the left side. He is slightly more conversational. However he does not want to initiate conversation and is very tired. He cannot get out of bed by himself. Prior to these events, he has no evidence of dementia. Patient's mentions that he has been on hemodialysis since April 2023. He has history of diabetes since 1996. Patient has smoked half pack per day for 10 years, quit 30 years ago. Does not drink any alcohol or any marijuana. He has been using cane for last 1 year because of balance issues. He also has neuropathy in his feet from diabetes. Patient has no history of dementia or memory loss prior to this admission. Review of Systems As per patient's report. Constitutional: Reports fever, Denies chills Eyes: denies blurred vision, denies diplopia, denies pain, denies loss of peripheral vision Ears: deny: decreased hearing, ear discharge Ears, nose, mouth and throat: Denies headache, Denies vertigo Cardiovascular: Denies chest pain, Denies shortness of breath Respiratory: Denies cough, Denies excessive sputum Gastrointestinal: Denies abdominal pain, Denies diarrhea, Denies nausea, Denies vomiting Genitourinary: Reports incontinence, Reports urinary frequency Musculoskeletal: Reports low back pain, Reports neck stiffness, Denies neck pain Integumentary: Denies pruritus, Denies rash Neurological: Reports as per HPI Psychiatric: Denies anxiety, Denies depression Hematologic/Lymphatic: Denies easy bleeding, Denies easy bruising Past Medical History Past Medical History: Atrial Fibrillation, Atrial Flutter, COPD, Diabetes Mellitus, Dialysis, Hyperlipidemia, Hypertension, Renal Disease, Sleep Apnea/CPAP/BIPAP Additional Past Medical History / Comment(s): MWF DIALYSIS , uses cpap ,dialysis graft in lft arm, history of severe aortic valve stenosis status post TAVR July 2023 History of Any Multi-Drug Resistant Organisms: None Reported Past Surgical History: Cardiac Valve Replacement (TAVR valve completed at [facility] July 2023), Tonsillectomy Additional Past Surgical History / Comment(s): Left arm graft for dialysis Past Anesthesia/Blood Transfusion Reactions: No Reported Reaction Smoking Status: Former smoker Past Alcohol Use History: Rare Past Drug Use History: None Reported - Past Family History Father Family Medical History: Dementia, Pneumonia Brother(s) Family Medical History: Diabetes Mellitus, Sleep Apnea/CPAP/BIPAP Additional Family Medical History / Comment(s): Parkinson's Dis. Mother Family Medical History: Dementia Medications and Allergies Home Medications Medication Instructions Recorded Confirmed Type Alogliptin Benzoate [Alogliptin] 6.25 mg PO HS 11/20/23 02/15/24 History Insulin Glargine,Hum.rec.anlog 45 units SQ HS 11/20/23 02/15/24 History [Lantus Solostar Pen] Multivitamins, Thera [Multivitamin 1 tab PO DAILY 11/20/23 02/15/24 History (formulary)] [place]-3/Dha/Epa/Fish Oil [Fish Oil 1,000 mg PO DAILY 11/20/23 02/15/24 History 1,000 mg Softgel] Tamsulosin HCl [Flomax] 0.4 mg PO HS 11/20/23 02/15/24 History Warfarin [Coumadin] 2.5 mg PO DIRECTED 11/20/23 02/15/24 History diphenhydrAMINE HCL [Benadryl] 25 mg PO HS 11/20/23 02/15/24 History Lovastatin [Mevacor] 10 mg PO HS 02/15/24 02/15/24 History Allergies Allergy/AdvReac Type Severity Reaction Status Date / Time No Known Allergies Allergy Verified 02/15/24 16:59 Physical Examination - Vital Signs Vital Signs: Vital Signs Temp Pulse Pulse Resp BP Pulse Ox FiO2 03/03/24 14:00 85 100 18 03/03/24 12:00 93 18 159/66 89 L 03/03/24 08:00 98.2 F 85 100 18 143/61 90 L 03/03/24 04:00 98.8 F 72 17 148/61 100 03/03/24 03:43 30 03/03/24 00:27 30 03/03/24 00:00 99.3 F 96 18 151/56 93 L 03/02/24 20:00 100.5 F H 106 H 17 140/62 99 03/02/24 19:07 97.5 F L 94 19 119/69 Intake and Output 03/03/24 03/03/24 03/03/24 06:59 14:59 22:59 Intake Total 118 Output Total 275 0 Balance -275 118 Intake: Oral 118 Output: Urine 275 Stool 0 Other: Voiding Method External Catheter External Catheter # Bowel Movements 0 1 Patient is an elderly male, who is laying in the bed, has very slow mentation. Patient takes very long time to answer any question. Patient does wake up and become somewhat alert but still somewhat spacey. Current month or year. He knows that he lives in [facility] but does not know the current city or the building he is in. He knows his date of , but does not know his age. He was able to tell name of current President Manolo, but not come up with the last name Mook. He knows his 's name Kenia and that he has 3 children. Speech and language functions are normal. Patient can name and repeat very well. No aphasia, although there is mild dysarthria. Attention, concentration is severely decreased and fund of knowledge is also very limited. Patient at times becomes somewhat spacey, does not answer qu estions. On cranial nerve examination, pupils are equal, round and reacting to light, visual layne are full on confrontation, with no neglect on double simultaneous stimulation. Extraocular muscles are intact with no nystagmus. Face is symmetric, tongue protrudes to the midline. Palatal elevation and sensation normal, hearing is slightly decreased and shoulder shrug normal, facial sensation normal. On muscle strength testing, there is left pronator drift. He has significant myoclonic jerks of the hands. The muscle strength is (right/left) deltoid 2/3+, biceps 5/4+5-, triceps 4+5-/4+5-, continuous pillowcase cutter 4+/3. In the lower limbs hip flexion 3 3-/3 3-, ankle dorsiflexion 2/2. Deep tendon reflexes are symmetric trace to 1 in bilateral brachioradialis, biceps, and the knees whereas plantars are upgoing bilaterally. Sensory to touch is equal, however he neglects left side on double simultaneous stimulation. Cerebellar function showed ataxia for [id number] testing bilaterally. Cannot perform [id number]-fu-vbes testing bilaterally. Tone and bulk of muscles normal. Gait deferred.. On general examination, there is no carotid bruit or murmur, S1-S2 audible. Chest is clear on consultation. Abdomen is soft nontender. No organomegaly, bowel sounds present. Patient has peripheral edema. Some bruises. Results - Laboratory Findings CBC and BMP: 03/04/24 09:13 03/04/24 09:13 Abnormal Lab Findings: Abnormal Labs 02/15/24 02/15/24 02/15/24 14:04 14:04 14:04 WBC 19.4 H RBC 3.59 L Hgb 11.3 L Hct 34.0 L MCV MCHC RDW Plt Count 131 L Neutrophils # 18.2 H Neutrophils # (Manual) Lymphocytes # 0.3 L Lymphocytes # (Manual) Monocytes # (Manual) Metamyelocytes # (Man) Myelocytes # (Manual) PT 21.7 H INR 2.2 H APTT 41.5 H ABG pO2 ABG HCO3 ABG O2 Saturation Sodium Chloride 97 L BUN 76 H Creatinine 3.74 H Glucose 197 H POC Glucose (mg/dL) Hemoglobin A1c Plasma Lactic Acid Chaz Calcium Phosphorus 2.4 L Iron TIBC Transferrin Ferritin Troponin I C-Reactive Protein Total Protein Albumin Vitamin B12 Urine Protein Urine Glucose (UA) Urine Blood 02/15/24 02/15/24 02/15/24 14:04 14:04 17:14 WBC RBC Hgb Hct MCV MCHC RDW Plt Count Neutrophils # Neutrophils # (Manual) Lymphocytes # Lymphocytes # (Manual) Monocytes # (Manual) Metamyelocytes # (Man) Myelocytes # (Manual) PT INR APTT ABG pO2 ABG HCO3 ABG O2 Saturation Sodium Chloride BUN Creatinine Glucose POC Glucose (mg/dL) Hemoglobin A1c Plasma Lactic Acid Chaz 2.6 H* Calcium Phosphorus Iron TIBC Transferrin Ferritin Troponin I 0.171 H* C-Reactive Protein Total Protein Albumin Vitamin B12 Urine Protein 3+ H Urine Glucose (UA) 2+ H Urine Blood Small H 02/15/24 02/15/24 02/15/24 17:36 20:43 21:08 WBC RBC Hgb Hct MCV MCHC RDW Plt Count Neutrophils # Neutrophils # (Manual) Lymphocytes # Lymphocytes # (Manual) Monocytes # (Manual) Metamyelocytes # (Man) Myelocytes # (Manual) PT INR APTT ABG pO2 ABG HCO3 ABG O2 Saturation Sodium Chloride BUN Creatinine Glucose POC Glucose (mg/dL) 266 H Hemoglobin A1c Plasma Lactic Acid Chaz Calcium Phosphorus Iron TIBC Transferrin Ferritin Troponin I 0.203 H* 0.276 H* C-Reactive Protein Total Protein Albumin Vitamin B12 Urine Protein Urine Glucose (UA) Urine Blood 02/15/24 02/16/24 02/16/24 23:31 03:02 03:02 WBC RBC Hgb Hct MCV MCHC RDW Plt Count Neutrophils # Neutrophils # (Manual) Lymphocytes # Lymphocytes # (Manual) Monocytes # (Manual) Metamyelocytes # (Man) Myelocytes # (Manual) PT 18.9 H INR 1.9 H APTT 96.2 H ABG pO2 ABG HCO3 ABG O2 Saturation Sodium Chloride BUN Creatinine Glucose POC Glucose (mg/dL) Hemoglobin A1c 8.8 H Plasma Lactic Acid Chaz Calcium Phosphorus Iron TIBC Transferrin Ferritin Troponin I C-Reactive Protein Total Protein Albumin Vitamin B12 Urine Protein Urine Glucose (UA) Urine Blood 02/16/24 02/16/24 02/16/24 03:02 03:02 08:40 WBC 17.4 H RBC 3.05 L Hgb 9.8 L D Hct 29.4 L MCV MCHC RDW 15.6 H Plt Count 92 L Neutrophils # Neutrophils # (Manual) 16.00 H Lymphocytes # Lymphocytes # (Manual) Monocytes # (Manual) Metamyelocytes # (Man) Myelocytes # (Manual) PT INR APTT ABG pO2 ABG HCO3 ABG O2 Saturation Sodium 136 L Chloride BUN 87 H Creatinine 4.79 H Glucose 213 H POC Glucose (mg/dL) 301 H Hemoglobin A1c Plasma Lactic Acid Chaz Calcium 8.1 L Phosphorus Iron TIBC Transferrin Ferritin Troponin I C-Reactive Protein Total Protein 5.5 L Albumin 2.9 L Vitamin B12 Urine Protein Urine Glucose (UA) Urine Blood 02/16/24 02/16/24 02/16/24 12:03 16:34 16:36 WBC RBC Hgb Hct MCV MCHC RDW Plt Count Neutrophils # Neutrophils # (Manual) Lymphocytes # Lymphocytes # (Manual) Monocytes # (Manual) Metamyelocytes # (Man) Myelocytes # (Manual) PT INR APTT ABG pO2 ABG HCO3 ABG O2 Saturation 98.0 H Sodium Chloride BUN Creatinine Glucose POC Glucose (mg/dL) 327 H 280 H Hemoglobin A1c Plasma Lactic Acid Chaz Calcium Phosphorus Iron TIBC Transferrin Ferritin Troponin I C-Reactive Protein Total Protein Albumin Vitamin B12 Urine Protein Urine Glucose (UA) Urine Blood 02/16/24 02/16/24 02/17/24 16:52 21:15 05:57 WBC RBC Hgb Hct MCV MCHC RDW Plt Count Neutrophils # Neutrophils # (Manual) Lymphocytes # Lymphocytes # (Manual) Monocytes # (Manual) Metamyelocytes # (Man) Myelocytes # (Manual) PT 16.3 H INR 1.6 H APTT ABG pO2 ABG HCO3 ABG O2 Saturation Sodium Chloride BUN Creatinine Glucose POC Glucose (mg/dL) 247 H 131 H Hemoglobin A1c Plasma Lactic Acid Chaz Calcium Phosphorus Iron TIBC Transferrin Ferritin Troponin I C-Reactive Protein Total Protein Albumin Vitamin B12 Urine Protein Urine Glucose (UA) Urine Blood 02/17/24 02/17/24 02/17/24 05:57 05:57 05:57 WBC RBC 2.82 L Hgb 8.9 L Hct 27.9 L MCV MCHC RDW 15.7 H Plt Count 91 L Neutrophils # 9.5 H Neutrophils # (Manual) Lymphocytes # 0.5 L Lymphocytes # (Manual) Monocytes # (Manual) Metamyelocytes # (Man) Myelocytes # (Manual) PT INR APTT ABG pO2 ABG HCO3 ABG O2 Saturation Sodium 134 L Chloride BUN 55 H Creatinine 3.87 H Glucose 169 H POC Glucose (mg/dL) Hemoglobin A1c Plasma Lactic Acid Chaz Calcium 7.4 L Phosphorus Iron 26 L TIBC 162 L Transferrin 116.0 L Ferritin 3396.0 H Troponin I C-Reactive Protein Total Protein Albumin Vitamin B12 Urine Protein Urine Glucose (UA) Urine Blood 02/17/24 02/17/24 02/17/24 06:44 11:18 17:08 WBC RBC Hgb Hct MCV MCHC RDW Plt Count Neutrophils # Neutrophils # (Manual) Lymphocytes # Lymphocytes # (Manual) Monocytes # (Manual) Metamyelocytes # (Man) Myelocytes # (Manual) PT INR APTT ABG pO2 ABG HCO3 ABG O2 Saturation Sodium Chloride BUN Creatinine Glucose POC Glucose (mg/dL) 193 H 199 H 174 H Hemoglobin A1c Plasma Lactic Acid Chza Calcium Phosphorus Iron TIBC Transferrin Ferritin Troponin I C-Reactive Protein Total Protein Albumin Vitamin B12 Urine Protein Urine Glucose (UA) Urine Blood 02/17/24 02/18/24 02/18/24 20:38 06:21 09:06 WBC RBC Hgb Hct MCV MCHC RDW Plt Count Neutrophils # Neutrophils # (Manual) Lymphocytes # Lymphocytes # (Manual) Monocytes # (Manual) Metamyelocytes # (Man) Myelocytes # (Manual) PT 16.8 H INR 1.6 H APTT ABG pO2 ABG HCO3 ABG O2 Saturation Sodium Chloride BUN Creatinine Glucose POC Glucose (mg/dL) 187 H 176 H Hemoglobin A1c Plasma Lactic Acid Chaz Calcium Phosphorus Iron TIBC Transferrin Ferritin Troponin I C-Reactive Protein Total Protein Albumin Vitamin B12 Urine Protein Urine Glucose (UA) Urine Blood 02/18/24 02/18/24 02/18/24 09:27 09:27 11:33 WBC 12.5 H RBC 2.96 L Hgb 9.3 L Hct 28.7 L MCV MCHC RDW 15.6 H Plt Count 106 L Neutrophils # 10.8 H Neutrophils # (Manual) Lymphocytes # 0.7 L Lymphocytes # (Manual) Monocytes # (Manual) Metamyelocytes # (Man) Myelocytes # (Manual) PT INR APTT ABG pO2 ABG HCO3 ABG O2 Saturation Sodium 132 L Chloride BUN 58 H Creatinine 3.57 H Glucose 177 H POC Glucose (mg/dL) 233 H Hemoglobin A1c Plasma Lactic Acid Chaz Calcium 7.6 L Phosphorus Iron TIBC Transferrin Ferritin Troponin I C-Reactive Protein Total Protein Albumin Vitamin B12 Urine Protein Urine Glucose (UA) Urine Blood 02/18/24 02/18/24 02/19/24 16:16 19:52 08:24 WBC RBC Hgb Hct MCV MCHC RDW Plt Count Neutrophils # Neutrophils # (Manual) Lymphocytes # Lymphocytes # (Manual) Monocytes # (Manual) Metamyelocytes # (Man) Myelocytes # (Manual) PT 20.5 H INR 2.0 H APTT ABG pO2 ABG HCO3 ABG O2 Saturation Sodium Chloride BUN Creatinine Glucose POC Glucose (mg/dL) 306 H 215 H Hemoglobin A1c Plasma Lactic Acid Chaz Calcium Phosphorus Iron TIBC Transferrin Ferritin Troponin I C-Reactive Protein Total Protein Albumin Vitamin B12 Urine Protein Urine Glucose (UA) Urine Blood 02/19/24 02/19/24 02/19/24 08:24 08:24 16:51 WBC 12.4 H RBC 2.87 L Hgb 8.9 L Hct 27.4 L MCV MCHC RDW 15.6 H Plt Count 94 L Neutrophils # Neutrophils # (Manual) Lymphocytes # Lymphocytes # (Manual) Monocytes # (Manual) Metamyelocytes # (Man) Myelocytes # (Manual) PT INR APTT ABG pO2 ABG HCO3 ABG O2 Saturation Sodium 132 L Chloride BUN 84 H Creatinine 4.74 H Glucose 66 L POC Glucose (mg/dL) 194 H Hemoglobin A1c Plasma Lactic Acid Chaz Calcium 7.7 L Phosphorus Iron TIBC Transferrin Ferritin Troponin I C-Reactive Protein Total Protein Albumin Vitamin B12 Urine Protein Urine Glucose (UA) Urine Blood 02/19/24 02/20/24 02/20/24 20:27 06:11 08:20 WBC RBC Hgb Hct MCV MCHC RDW Plt Count Neutrophils # Neutrophils # (Manual) Lymphocytes # Lymphocytes # (Manual) Monocytes # (Manual) Metamyelocytes # (Man) Myelocytes # (Manual) PT 28.2 H INR 2.9 H APTT ABG pO2 ABG HCO3 ABG O2 Saturation Sodium Chloride BUN Creatinine Glucose POC Glucose (mg/dL) 254 H 210 H Hemoglobin A1c Plasma Lactic Acid Chaz Calcium Phosphorus Iron TIBC Transferrin Ferritin Troponin I C-Reactive Protein Total Protein Albumin Vitamin B12 Urine Protein Urine Glucose (UA) Urine Blood 02/20/24 02/20/24 02/20/24 08:20 08:20 11:46 WBC 12.9 H RBC 2.67 L Hgb 8.4 L Hct 25.5 L MCV MCHC RDW 15.7 H Plt Count 116 L Neutrophils # 10.7 H Neutrophils # (Manual) Lymphocytes # 0.9 L Lymphocytes # (Manual) Monocytes # (Manual) Metamyelocytes # (Man) Myelocytes # (Manual) PT INR APTT ABG pO2 ABG HCO3 ABG O2 Saturation Sodium 133 L Chloride 96 L BUN 63 H Creatinine 4.11 H Glucose 153 H POC Glucose (mg/dL) 111 H Hemoglobin A1c Plasma Lactic Acid Chaz Calcium 7.4 L Phosphorus Iron TIBC Transferrin Ferritin Troponin I C-Reactive Protein Total Protein Albumin Vitamin B12 Urine Protein Urine Glucose (UA) Urine Blood 02/20/24 02/20/24 02/20/24 16:22 16:36 19:59 WBC RBC Hgb Hct MCV MCHC RDW Plt Count Neutrophils # Neutrophils # (Manual) Lymphocytes # Lymphocytes # (Manual) Monocytes # (Manual) Metamyelocytes # (Man) Myelocytes # (Manual) PT INR APTT ABG pO2 109 H ABG HCO3 29 H ABG O2 Saturation 97.1 H Sodium Chloride BUN Creatinine Glucose POC Glucose (mg/dL) 183 H 226 H Hemoglobin A1c Plasma Lactic Acid Chaz Calcium Phosphorus Iron TIBC Transferrin Ferritin Troponin I C-Reactive Protein Total Protein Albumin Vitamin B12 Urine Protein Urine Glucose (UA) Urine Blood 02/21/24 02/21/24 02/21/24 06:17 06:17 06:17 WBC 13.7 H RBC 2.62 L Hgb 8.1 L Hct 25.3 L MCV MCHC RDW 15.6 H Plt Count 140 L Neutrophils # 10.7 H Neutrophils # (Manual) Lymphocytes # Lymphocytes # (Manual) Monocytes # (Manual) Metamyelocytes # (Man) Myelocytes # (Manual) PT 32.6 H INR 3.3 H APTT ABG pO2 ABG HCO3 ABG O2 Saturation Sodium 132 L Chloride 95 L BUN 88 H Creatinine 5.57 H Glucose 132 H POC Glucose (mg/dL) Hemoglobin A1c Plasma Lactic Acid Chaz Calcium 7.3 L Phosphorus Iron TIBC Transferrin Ferritin Troponin I C-Reactive Protein Total Protein Albumin Vitamin B12 Urine Protein Urine Glucose (UA) Urine Blood 02/21/24 02/21/24 02/21/24 06:31 11:20 16:12 WBC RBC Hgb Hct MCV MCHC RDW Plt Count Neutrophils # Neutrophils # (Manual) Lymphocytes # Lymphocytes # (Manual) Monocytes # (Manual) Metamyelocytes # (Man) Myelocytes # (Manual) PT INR APTT ABG pO2 ABG HCO3 ABG O2 Saturation Sodium Chloride BUN Creatinine Glucose POC Glucose (mg/dL) 141 H 175 H 267 H Hemoglobin A1c Plasma Lactic Acid Chaz Calcium Phosphorus Iron TIBC Transferrin Ferritin Troponin I C-Reactive Protein Total Protein Albumin Vitamin B12 Urine Protein Urine Glucose (UA) Urine Blood 02/21/24 02/22/24 02/22/24 20:26 06:01 14:31 WBC 17.7 H RBC 2.92 L Hgb 9.3 L Hct 27.3 L MCV MCHC RDW Plt Count Neutrophils # Neutrophils # (Manual) 14.10 H Lymphocytes # Lymphocytes # (Manual) 0.89 L Monocytes # (Manual) 2.12 H Metamyelocytes # (Man) 0.18 H Myelocytes # (Manual) 0.18 H PT INR APTT ABG pO2 ABG HCO3 ABG O2 Saturation Sodium Chloride BUN Creatinine Glucose POC Glucose (mg/dL) 211 H 128 H Hemoglobin A1c Plasma Lactic Acid Chaz Calcium Phosphorus Iron TIBC Transferrin Ferritin Troponin I C-Reactive Protein Total Protein Albumin Vitamin B12 Urine Protein Urine Glucose (UA) Urine Blood 02/22/24 02/22/24 02/22/24 14:31 16:25 18:53 WBC RBC Hgb Hct MCV MCHC RDW Plt Count Neutrophils # Neutrophils # (Manual) Lymphocytes # Lymphocytes # (Manual) Monocytes # (Manual) Metamyelocytes # (Man) Myelocytes # (Manual) PT 37.4 H INR 3.8 H APTT ABG pO2 ABG HCO3 ABG O2 Saturation Sodium 131 L Chloride 96 L BUN 57 H Creatinine 3.26 H Glucose 135 H POC Glucose (mg/dL) 158 H Hemoglobin A1c Plasma Lactic Acid Chaz Calcium 7.6 L Phosphorus Iron TIBC Transferrin Ferritin Troponin I C-Reactive Protein Total Protein Albumin Vitamin B12 Urine Protein Urine Glucose (UA) Urine Blood 02/22/24 02/23/24 02/23/24 20:17 05:46 10:01 WBC RBC Hgb Hct MCV MCHC RDW Plt Count Neutrophils # Neutrophils # (Manual) Lymphocytes # Lymphocytes # (Manual) Monocytes # (Manual) Metamyelocytes # (Man) Myelocytes # (Manual) PT 38.4 H INR 3.9 H APTT ABG pO2 ABG HCO3 ABG O2 Saturation Sodium Chloride BUN Creatinine Glucose POC Glucose (mg/dL) 276 H 184 H Hemoglobin A1c Plasma Lactic Acid Chaz Calcium Phosphorus Iron TIBC Transferrin Ferritin Troponin I C-Reactive Protein Total Protein Albumin Vitamin B12 Urine Protein Urine Glucose (UA) Urine Blood 02/23/24 02/23/24 02/23/24 10:01 10:01 11:41 WBC 15.5 H RBC 2.55 L Hgb 8.0 L Hct 24.3 L MCV MCHC RDW Plt Count Neutrophils # 13.1 H Neutrophils # (Manual) Lymphocytes # 0.9 L Lymphocytes # (Manual) Monocytes # (Manual) Metamyelocytes # (Man) Myelocytes # (Manual) PT INR APTT ABG pO2 ABG HCO3 ABG O2 Saturation Sodium 132 L Chloride 94 L BUN 77 H Creatinine 5.38 H Glucose 118 H POC Glucose (mg/dL) 132 H Hemoglobin A1c Plasma Lactic Acid Chaz Calcium 7.5 L Phosphorus 7.2 H Iron TIBC Transferrin Ferritin Troponin I C-Reactive Protein Total Protein Albumin Vitamin B12 Urine Protein Urine Glucose (UA) Urine Blood 02/23/24 02/23/24 02/24/24 16:43 20:06 05:40 WBC RBC Hgb Hct MCV MCHC RDW Plt Count Neutrophils # Neutrophils # (Manual) Lymphocytes # Lymphocytes # (Manual) Monocytes # (Manual) Metamyelocytes # (Man) Myelocytes # (Manual) PT INR APTT ABG pO2 ABG HCO3 ABG O2 Saturation Sodium Chloride BUN Creatinine Glucose POC Glucose (mg/dL) 205 H 163 H 137 H Hemoglobin A1c Plasma Lactic Acid Chaz Calcium Phosphorus Iron TIBC Transferrin Ferritin Troponin I C-Reactive Protein Total Protein Albumin Vitamin B12 Urine Protein Urine Glucose (UA) Urine Blood 02/24/24 02/24/24 02/24/24 09:58 09:58 09:58 WBC 17.8 H RBC 2.53 L Hgb 8.0 L Hct 24.1 L MCV MCHC RDW Plt Count Neutrophils # 15.8 H Neutrophils # (Manual) Lymphocytes # 0.9 L Lymphocytes # (Manual) Monocytes # (Manual) Metamyelocytes # (Man) Myelocytes # (Manual) PT 32.0 H INR 3.3 H APTT ABG pO2 ABG HCO3 ABG O2 Saturation Sodium 131 L Chloride 95 L BUN 100 H Creatinine 7.15 H* Glucose 104 H POC Glucose (mg/dL) Hemoglobin A1c Plasma Lactic Acid Chaz Calcium 7.5 L Phosphorus Iron TIBC Transferrin Ferritin Troponin I C-Reactive Protein Total Protein Albumin Vitamin B12 Urine Protein Urine Glucose (UA) Urine Blood 02/24/24 02/24/24 02/25/24 11:27 20:30 06:08 WBC RBC Hgb Hct MCV MCHC RDW Plt Count Neutrophils # Neutrophils # (Manual) Lymphocytes # Lymphocytes # (Manual) Monocytes # (Manual) Metamyelocytes # (Man) Myelocytes # (Manual) PT INR APTT ABG pO2 ABG HCO3 ABG O2 Saturation Sodium Chloride BUN Creatinine Glucose POC Glucose (mg/dL) 139 H 220 H 170 H Hemoglobin A1c Plasma Lactic Acid Chaz Calcium Phosphorus Iron TIBC Transferrin Ferritin Troponin I C-Reactive Protein Total Protein Albumin Vitamin B12 Urine Protein Urine Glucose (UA) Urine Blood 02/25/24 02/25/24 02/25/24 09:59 09:59 09:59 WBC 17.1 H RBC 2.57 L Hgb 8.1 L Hct 24.3 L MCV MCHC RDW Plt Count Neutrophils # 14.9 H Neutrophils # (Manual) Lymphocytes # 0.9 L Lymphocytes # (Manual) Monocytes # (Manual) Metamyelocytes # (Man) Myelocytes # (Manual) PT 32.2 H INR 3.3 H APTT ABG pO2 ABG HCO3 ABG O2 Saturation Sodium 131 L Chloride 96 L BUN 67 H Creatinine 5.25 H Glucose 102 H POC Glucose (mg/dL) Hemoglobin A1c Plasma Lactic Acid Chaz Calcium 7.7 L Phosphorus Iron TIBC Transferrin Ferritin Troponin I C-Reactive Protein Total Protein Albumin Vitamin B12 1552.0 H Urine Protein Urine Glucose (UA) Urine Blood 02/25/24 02/25/24 02/25/24 11:21 16:29 20:15 WBC RBC Hgb Hct MCV MCHC RDW Plt Count Neutrophils # Neutrophils # (Manual) Lymphocytes # Lymphocytes # (Manual) Monocytes # (Manual) Metamyelocytes # (Man) Myelocytes # (Manual) PT INR APTT ABG pO2 ABG HCO3 ABG O2 Saturation Sodium Chloride BUN Creatinine Glucose POC Glucose (mg/dL) 116 H 207 H 261 H Hemoglobin A1c Plasma Lactic Acid Chaz Calcium Phosphorus Iron TIBC Transferrin Ferritin Troponin I C-Reactive Protein Total Protein Albumin Vitamin B12 Urine Protein Urine Glucose (UA) Urine Blood 02/26/24 02/26/24 02/26/24 06:10 08:34 08:34 WBC 16.7 H RBC 2.74 L Hgb 8.4 L Hct 26.3 L MCV MCHC RDW Plt Count Neutrophils # 14.3 H Neutrophils # (Manual) Lymphocytes # Lymphocytes # (Manual) Monocytes # (Manual) Metamyelocytes # (Man) Myelocytes # (Manual) PT 45.6 H INR 4.7 H APTT ABG pO2 ABG HCO3 ABG O2 Saturation Sodium Chloride BUN Creatinine Glucose POC Glucose (mg/dL) 188 H Hemoglobin A1c Plasma Lactic Acid Chaz Calcium Phosphorus Iron TIBC Transferrin Ferritin Troponin I C-Reactive Protein Total Protein Albumin Vitamin B12 Urine Protein Urine Glucose (UA) Urine Blood 02/26/24 02/26/24 02/26/24 08:34 08:34 11:52 WBC RBC Hgb Hct MCV MCHC RDW Plt Count Neutrophils # Neutrophils # (Manual) Lymphocytes # Lymphocytes # (Manual) Monocytes # (Manual) Metamyelocytes # (Man) Myelocytes # (Manual) PT INR APTT ABG pO2 ABG HCO3 ABG O2 Saturation Sodium 130 L Chloride 94 L BUN 94 H Creatinine 7.05 H* Glucose 152 H POC Glucose (mg/dL) 238 H Hemoglobin A1c Plasma Lactic Acid Chaz Calcium 7.4 L Phosphorus 9.5 H* Iron TIBC Transferrin Ferritin Troponin I C-Reactive Protein 5.7 H Total Protein 5.7 L Albumin 2.6 L Vitamin B12 Urine Protein Urine Glucose (UA) Urine Blood 02/26/24 02/26/24 02/27/24 16:36 19:52 06:25 WBC RBC Hgb Hct MCV MCHC RDW Plt Count Neutrophils # Neutrophils # (Manual) Lymphocytes # Lymphocytes # (Manual) Monocytes # (Manual) Metamyelocytes # (Man) Myelocytes # (Manual) PT INR APTT ABG pO2 ABG HCO3 ABG O2 Saturation Sodium Chloride BUN Creatinine Glucose POC Glucose (mg/dL) 194 H 134 H 127 H Hemoglobin A1c Plasma Lactic Acid Chaz Calcium Phosphorus Iron TIBC Transferrin Ferritin Troponin I C-Reactive Protein Total Protein Albumin Vitamin B12 Urine Protein Urine Glucose (UA) Urine Blood 02/27/24 02/27/24 02/27/24 07:06 11:11 16:09 WBC RBC Hgb Hct MCV MCHC RDW Plt Count Neutrophils # Neutrophils # (Manual) Lymphocytes # Lymphocytes # (Manual) Monocytes # (Manual) Metamyelocytes # (Man) Myelocytes # (Manual) PT 65.0 H INR 6.6 H* APTT ABG pO2 ABG HCO3 ABG O2 Saturation Sodium Chloride BUN Creatinine Glucose POC Glucose (mg/dL) 221 H 178 H Hemoglobin A1c Plasma Lactic Acid Chaz Calcium Phosphorus Iron TIBC Transferrin Ferritin Troponin I C-Reactive Protein Total Protein Albumin Vitamin B12 Urine Protein Urine Glucose (UA) Urine Blood 02/27/24 02/28/24 02/28/24 20:33 06:24 09:08 WBC RBC Hgb Hct MCV MCHC RDW Plt Count Neutrophils # Neutrophils # (Manual) Lymphocytes # Lymphocytes # (Manual) Monocytes # (Manual) Metamyelocytes # (Man) Myelocytes # (Manual) PT 29.3 H INR 3.0 H APTT ABG pO2 ABG HCO3 ABG O2 Saturation Sodium Chloride BUN Creatinine Glucose POC Glucose (mg/dL) 316 H 178 H Hemoglobin A1c Plasma Lactic Acid Chaz Calcium Phosphorus Iron TIBC Transferrin Ferritin Troponin I C-Reactive Protein Total Protein Albumin Vitamin B12 Urine Protein Urine Glucose (UA) Urine Blood 02/28/24 02/28/24 02/28/24 09:08 09:08 11:36 WBC 12.7 H RBC 2.85 L Hgb 8.6 L Hct 27.9 L MCV MCHC RDW Plt Count Neutrophils # 10.6 H Neutrophils # (Manual) Lymphocytes # 0.9 L Lymphocytes # (Manual) Monocytes # (Manual) Metamyelocytes # (Man) Myelocytes # (Manual) PT INR APTT ABG pO2 ABG HCO3 ABG O2 Saturation Sodium 127 L Chloride 91 L BUN 75 H Creatinine 6.19 H Glucose 137 H POC Glucose (mg/dL) 131 H Hemoglobin A1c Plasma Lactic Acid Chaz Calcium 7.4 L Phosphorus Iron TIBC Transferrin Ferritin Troponin I C-Reactive Protein 5.7 H Total Protein Albumin Vitamin B12 Urine Protein Urine Glucose (UA) Urine Blood 02/28/24 02/28/24 02/29/24 16:19 20:02 05:59 WBC RBC Hgb Hct MCV MCHC RDW Plt Count Neutrophils # Neutrophils # (Manual) Lymphocytes # Lymphocytes # (Manual) Monocytes # (Manual) Metamyelocytes # (Man) Myelocytes # (Manual) PT INR APTT ABG pO2 ABG HCO3 ABG O2 Saturation Sodium Chloride BUN Creatinine Glucose POC Glucose (mg/dL) 220 H 300 H 133 H Hemoglobin A1c Plasma Lactic Acid Chaz Calcium Phosphorus Iron TIBC Transferrin Ferritin Troponin I C-Reactive Protein Total Protein Albumin Vitamin B12 Urine Protein Urine Glucose (UA) Urine Blood 02/29/24 02/29/24 02/29/24 08:52 08:52 08:52 WBC 14.0 H RBC 2.69 L Hgb 8.3 L Hct 27.2 L MCV 101.2 H MCHC 30.6 L RDW Plt Count Neutrophils # 12.0 H Neutrophils # (Manual) Lymphocytes # 0.7 L Lymphocytes # (Manual) Monocytes # (Manual) Metamyelocytes # (Man) Myelocytes # (Manual) PT 21.9 H INR 2.2 H APTT ABG pO2 ABG HCO3 ABG O2 Saturation Sodium 125 L Chloride 88 L BUN 90 H Creatinine 7.22 H* Glucose 103 H POC Glucose (mg/dL) Hemoglobin A1c Plasma Lactic Acid Chaz Calcium 7.4 L Phosphorus Iron TIBC Transferrin Ferritin Troponin I C-Reactive Protein Total Protein Albumin Vitamin B12 Urine Protein Urine Glucose (UA) Urine Blood 02/29/24 02/29/24 02/29/24 11:53 16:58 20:01 WBC RBC Hgb Hct MCV MCHC RDW Plt Count Neutrophils # Neutrophils # (Manual) Lymphocytes # Lymphocytes # (Manual) Monocytes # (Manual) Metamyelocytes # (Man) Myelocytes # (Manual) PT INR APTT ABG pO2 ABG HCO3 ABG O2 Saturation Sodium Chloride BUN Creatinine Glucose POC Glucose (mg/dL) 191 H 118 H 133 H Hemoglobin A1c Plasma Lactic Acid Chaz Calcium Phosphorus Iron TIBC Transferrin Ferritin Troponin I C-Reactive Protein Total Protein Albumin Vitamin B12 Urine Protein Urine Glucose (UA) Urine Blood 03/01/24 03/01/24 03/01/24 06:15 07:57 07:57 WBC 11.0 H RBC 2.33 L Hgb 7.5 L Hct 22.3 L MCV MCHC RDW Plt Count Neutrophils # 9.1 H Neutrophils # (Manual) Lymphocytes # 0.7 L Lymphocytes # (Manual) Monocytes # (Manual) Metamyelocytes # (Man) Myelocytes # (Manual) PT 18.4 H INR 1.8 H APTT ABG pO2 ABG HCO3 ABG O2 Saturation Sodium Chloride BUN Creatinine Glucose POC Glucose (mg/dL) 161 H Hemoglobin A1c Plasma Lactic Acid Chaz Calcium Phosphorus Iron TIBC Transferrin Ferritin Troponin I C-Reactive Protein Total Protein Albumin Vitamin B12 Urine Protein Urine Glucose (UA) Urine Blood 03/01/24 03/01/24 03/01/24 07:57 16:53 19:51 WBC RBC Hgb Hct MCV MCHC RDW Plt Count Neutrophils # Neutrophils # (Manual) Lymphocytes # Lymphocytes # (Manual) Monocytes # (Manual) Metamyelocytes # (Man) Myelocytes # (Manual) PT INR APTT ABG pO2 ABG HCO3 ABG O2 Saturation Sodium 127 L Chloride 91 L BUN 50 H Creatinine 4.97 H Glucose 129 H POC Glucose (mg/dL) 201 H 262 H Hemoglobin A1c Plasma Lactic Acid Chaz Calcium 7.2 L Phosphorus Iron TIBC Transferrin Ferritin Troponin I C-Reactive Protein Total Protein Albumin Vitamin B12 Urine Protein Urine Glucose (UA) Urine Blood 03/02/24 03/02/24 03/02/24 05:48 12:05 12:05 WBC 11.1 H RBC 2.42 L Hgb 7.5 L Hct 23.4 L MCV MCHC RDW Plt Count Neutrophils # 9.3 H Neutrophils # (Manual) Lymphocytes # 0.8 L Lymphocytes # (Manual) Monocytes # (Manual) Metamyelocytes # (Man) Myelocytes # (Manual) PT 17.9 H INR 1.8 H APTT ABG pO2 ABG HCO3 ABG O2 Saturation Sodium Chloride BUN Creatinine Glucose POC Glucose (mg/dL) 114 H Hemoglobin A1c Plasma Lactic Acid Chaz Calcium Phosphorus Iron TIBC Transferrin Ferritin Troponin I C-Reactive Protein Total Protein Albumin Vitamin B12 Urine Protein Urine Glucose (UA) Urine Blood 03/02/24 03/02/24 03/02/24 12:05 16:34 20:09 WBC RBC Hgb Hct MCV MCHC RDW Plt Count Neutrophils # Neutrophils # (Manual) Lymphocytes # Lymphocytes # (Manual) Monocytes # (Manual) Metamyelocytes # (Man) Myelocytes # (Manual) PT INR APTT ABG pO2 ABG HCO3 ABG O2 Saturation Sodium 127 L Chloride 90 L BUN 67 H Creatinine 6.68 H Glucose POC Glucose (mg/dL) 132 H 130 H Hemoglobin A1c Plasma Lactic Acid Chaz Calcium 7.3 L Phosphorus Iron TIBC Transferrin Ferritin Troponin I C-Reactive Protein Total Protein Albumin Vitamin B12 Urine Protein Urine Glucose (UA) Urine Blood 03/03/24 03/03/24 03/03/24 06:27 08:26 11:23 WBC RBC Hgb Hct MCV MCHC RDW Plt Count Neutrophils # Neutrophils # (Manual) Lymphocytes # Lymphocytes # (Manual) Monocytes # (Manual) Metamyelocytes # (Man) Myelocytes # (Manual) PT 21.5 H INR 2.2 H APTT ABG pO2 ABG HCO3 ABG O2 Saturation Sodium Chloride BUN Creatinine Glucose POC Glucose (mg/dL) 181 H 262 H Hemoglobin A1c Plasma Lactic Acid Chaz Calcium Phosphorus Iron TIBC Transferrin Ferritin Troponin I C-Reactive Protein Total Protein Albumin Vitamin B12 Urine Protein Urine Glucose (UA) Urine Blood 03/03/24 16:18 WBC RBC Hgb Hct MCV MCHC RDW Plt Count Neutrophils # Neutrophils # (Manual) Lymphocytes # Lymphocytes # (Manual) Monocytes # (Manual) Metamyelocytes # (Man) Myelocytes # (Manual) PT INR APTT ABG pO2 ABG HCO3 ABG O2 Saturation Sodium Chloride BUN Creatinine Glucose POC Glucose (mg/dL) 277 H Hemoglobin A1c Plasma Lactic Acid Chaz Calcium Phosphorus Iron TIBC Transferrin Ferritin Troponin I C-Reactive Protein Total Protein Albumin Vitamin B12 Urine Protein Urine Glucose (UA) Urine Blood Assessment and Plan Assessment: * Acute, multiple, small multifocal areas of ischemic infarction noted on MRI brain, likely due to septic emboli from bacterial endocarditis. 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 * Anemia of chronic disease * End-stage renal disease on hemodialysis * Diabetes * Diabetic neuropathy * Obstructive sleep apnea * Ex-smoker Plan: * Repeat CT head, evaluate for any interval changes compared to last MRI. Rule out any hemorrhage. * Patient is having episodes of blank stare. We will check EEG rule out any epileptiform activity. * Patient currently on nafcillin 2 g every 4 hours IV, for infective endocarditis, ID on board. * Hemoglobin A1c 8.8. Recommend optimize control of diabetes to target A1c <7.0 * Fasting lipid panel * B12 1552, TSH 0.78 normal. * PT OT, speech therapy. * Other medical management as per IM and other specialties on board. * Neurology will follow. Thank you for the consult. Time with Patient: Greater than 30
--- NOTE | 2024-03-04 14:34 | P.PN ---
Subjective Patient is seen for follow-up for end-stage renal disease. Maintained on Thursday schedule. No significant complaints today. patient has been evaluated by cardiothoracic surgery for mitral valve vegetation. Patient at high risk for complications. No plans for surgical intervention at this time. Overall feeling slightly better. Objective - Vital Signs Vital signs: Vital Signs Temp 98.5 F 03/03/24 20:45 Pulse 96 03/04/24 12:59 Resp 24 03/04/24 12:59 BP 185/85 03/04/24 11:10 Pulse Ox 97 03/04/24 12:59 FiO2 40 03/04/24 12:59 Intake & Output 03/03/24 03/04/24 03/04/24 18:59 06:59 18:59 Intake Total 118 Output Total 0 Balance 118 Intake: Oral 118 Output: Stool 0 Other: Voiding Method External Catheter External Catheter # Bowel Movements 1 - Exam patient is awake, comfortable, no acute distress. Examination of the heart S1 and S2, systolic murmur Examination of the lungs bilateral breath sounds are heard decreased breath sounds at the bases Abdomen is soft nontender Examination of lower extremities shows no significant edema. [employer] exam grossly intact - Labs CBC & Chem 7: 03/04/24 09:13 03/04/24 09:13 Labs: Abnormal Lab Results - Last 24 Hours (Table) 03/03/24 03/03/24 03/03/24 Range/Units 16:18 20:20 21:14 RBC (4.30-5.90) m/uL Hgb (13.0-17.5) gm/dL Hct (39.0-53.0) % RDW (11.5-15.5) % PT (10.0-12.5) sec INR (<1.2) Sodium (137-145) mmol/L Chloride (98-107) mmol/L BUN (9-20) mg/dL Creatinine (0.66-1.25) mg/dL Glucose (74-99) mg/dL POC Glucose (mg/dL) 277 H 165 H 181 H (70-110) mg/dL Calcium (8.4-10.2) mg/dL 03/04/24 03/04/24 03/04/24 Range/Units 06:13 09:13 09:13 RBC 2.50 L (4.30-5.90) m/uL Hgb 7.8 L (13.0-17.5) gm/dL Hct 24.7 L (39.0-53.0) % RDW 15.6 H (11.5-15.5) % PT 17.3 H (10.0-12.5) sec INR 1.7 H (<1.2) Sodium (137-145) mmol/L Chloride (98-107) mmol/L BUN (9-20) mg/dL Creatinine (0.66-1.25) mg/dL Glucose (74-99) mg/dL POC Glucose (mg/dL) 128 H (70-110) mg/dL Calcium (8.4-10.2) mg/dL 03/04/24 03/04/24 Range/Units 09:13 11:31 RBC (4.30-5.90) m/uL Hgb (13.0-17.5) gm/dL Hct (39.0-53.0) % RDW (11.5-15.5) % PT (10.0-12.5) sec INR (<1.2) Sodium 129 L (137-145) mmol/L Chloride 92 L (98-107) mmol/L BUN 56 H (9-20) mg/dL Creatinine 6.04 H (0.66-1.25) mg/dL Glucose 128 H (74-99) mg/dL POC Glucose (mg/dL) 178 H (70-110) mg/dL Calcium 7.6 L (8.4-10.2) mg/dL Assessment and Plan Assessment: 1. End-stage renal disease on hemodialysis on a Thursday schedule via left arm AV graft. AV graft is functional. Status post fistulogram and angioplasty 02/16/2024 2. A. fib with RVR status post Cardizem drip 3. MSSA bacteremia on antibiotics. ID following. TREY showed a large vegetation on the mitral valve. CTS following. Septic emboli noted on MRI. No surgical intervention planned at this time due to being high risk. Repeat blood cultures are negative. Patient will need cardiac cath if surgery is planned down the road. 4. Volume overload, improved 5. Acute hypoxic respiratory failure secondary to volume overload, improved. Plan: hemodialysis on a Thursday schedule. Continue with IV antibiotics. Encourage increase oral intake.
--- NOTE | 2024-03-04 15:36 | P.PN ---
Subjective Progress Note Date: 03/04/24 Principal diagnosis: Reason for follow-up with MSSA bacteremia Patient is a 78-year-old male with a past medical his significant for diabetes mellitus hypertension hyperlipidemia atrial fibrillation history of end-stage renal disease on dialysis through left arm AV graft patient has been brought into the hospital for fever weakness and did have bacteremia.Patient did have a TREY completed on 02/26/2024 with evidence of a large vegetation on the anterior mitral leaflet there was no mention of any vegetation on the bioprosthetic aortic valve. On today's evaluation that is 03/04/2024, the patient did have a low-grade fever 100.5 last night patient is afebrile since then patient also went to A-fib with RVR recorded medication has been adjusted patient is currently on a BiPAP lethargic but arousable no vomiting diarrhea any other changes reported by the nursing staff. Patient white count normal at 9.3 creatinine 6.04 blood culture repeat has been negative Objective - Vital Signs Vital signs: Vital Signs Temp 98.5 F 03/03/24 20:45 Pulse 96 03/04/24 12:59 Resp 24 03/04/24 12:59 BP 185/85 03/04/24 11:10 Pulse Ox 97 03/04/24 12:59 FiO2 40 03/04/24 12:59 Intake & Output 03/03/24 03/04/24 03/04/24 18:59 06:59 18:59 Intake Total 118 Output Total 0 Balance 118 Intake: Oral 118 Output: Stool 0 Other: Voiding Method External Catheter External Catheter # Bowel Movements 1 - Exam GENERAL DESCRIPTION: An elderly male lying in bed in no distress RESPIRATORY SYSTEM: Unlabored breathing , decreased breath sounds at bases HEART: S1 S2 regular rate and rhythm , ABDOMEN: Soft , no tenderness - Labs CBC & Chem 7: 03/04/24 09:13 03/04/24 09:13 Labs: Abnormal Lab Results - Last 24 Hours (Table) 03/03/24 03/03/24 03/03/24 Range/Units 16:18 20:20 21:14 RBC (4.30-5.90) m/uL Hgb (13.0-17.5) gm/dL Hct (39.0-53.0) % RDW (11.5-15.5) % PT (10.0-12.5) sec INR (<1.2) Sodium (137-145) mmol/L Chloride (98-107) mmol/L BUN (9-20) mg/dL Creatinine (0.66-1.25) mg/dL Glucose (74-99) mg/dL POC Glucose (mg/dL) 277 H 165 H 181 H (70-110) mg/dL Calcium (8.4-10.2) mg/dL 03/04/24 03/04/24 03/04/24 Range/Units 06:13 09:13 09:13 RBC 2.50 L (4.30-5.90) m/uL Hgb 7.8 L (13.0-17.5) gm/dL Hct 24.7 L (39.0-53.0) % RDW 15.6 H (11.5-15.5) % PT 17.3 H (10.0-12.5) sec INR 1.7 H (<1.2) Sodium (137-145) mmol/L Chloride (98-107) mmol/L BUN (9-20) mg/dL Creatinine (0.66-1.25) mg/dL Glucose (74-99) mg/dL POC Glucose (mg/dL) 128 H (70-110) mg/dL Calcium (8.4-10.2) mg/dL 03/04/24 03/04/24 Range/Units 09:13 11:31 RBC (4.30-5.90) m/uL Hgb (13.0-17.5) gm/dL Hct (39.0-53.0) % RDW (11.5-15.5) % PT (10.0-12.5) sec INR (<1.2) Sodium 129 L (137-145) mmol/L Chloride 92 L (98-107) mmol/L BUN 56 H (9-20) mg/dL Creatinine 6.04 H (0.66-1.25) mg/dL Glucose 128 H (74-99) mg/dL POC Glucose (mg/dL) 178 H (70-110) mg/dL Calcium 7.6 L (8.4-10.2) mg/dL Assessment and Plan (1) Leukocytosis Current Visit: Yes Status: Acute Code(s): D72.829 - ELEVATED WHITE BLOOD CELL COUNT, UNSPECIFIED SNOMED Code(s): 143271860 (2) MSSA bacteremia Current Visit: Yes Status: Acute Code(s): R78.81 - BACTEREMIA; B95.61 - METHICILLIN SUSCEP STAPH INFCT CAUSING DIS CLASSD [id number] SNOMED Code(s): 404902970 Plan: 1patient with MSSA bacteremia in this patient who do have a history of renal failure with on hemodialysis with a left arm fistula site with presentation to the hospital with weakness fall and urinary frequency however UA is negative abdominal soft no significant respiratory symptoms or hypoxemia question of possible related to the fistula site which was nonfunctioning and did have angiogram and angioplasty done this admission. 2blood cultures repeated 02/17/2024 came back positive blood culture has been repeated 02/19/2024 as well as 02/20/2024 are so far negative keeping in mind his TAVR procedure, cardiology has been consulted for TERY which was completed with evidence of large vegetation on the anterior mitral valve leaflet did not mention any vegetation on the bioprosthetic aortic valve 3-CT surgery has been consulted because of the large vegetation patient has been evaluated by CT surgery recommending no surgical intervention at this point, patient family is getting an opinion from [facility] awaiting their recommendation as per discussion with the family member 4-patient did have a low-grade fever last night however afebrile this morning with patient white count has normalized, continue with Naficillin and monitor clinical course closely. Family at the bedside questions were answered Dictation was produced using [employer] dictation software. please excuse any grammatical, word or spelling errors. Time with Patient: Less than 30
[2024-03-04 16:17] LABS: Glucose,Whole Blood 130 mg/dL (70-110)
--- NOTE | 2024-03-04 16:18 | P.PN ---
Subjective Progress Note Date: 03/04/24 Principal diagnosis: Acute infective endocarditis/anterior leaflet of the mitral valve On today's evaluation of 02/22/2024, seen the patient for a follow-up. The patient is currently undergoing hemodialysis and is resting comfortably in bed while awaiting a BiPAP at a pressure of 10/5 with an FiO2 of 30%. No significant respiratory distress at this point in time. Noted the patient had staphylococcal bacteremia/MSSA and the patient is currently on IV cefazolin. Pulse ox is in the order of 94% while wearing the BiPAP. No labs are available from today. Yesterday's labs were noted. The white cell count at 13.7 with a hemoglobin of 8.1 and a platelet count of 140. The most recent chest x-ray from 02/18/2024 showed cardiomegaly and mild pulm vascular congestion. No evidence of any consolidation or airspace disease. Echocardiogram on 02/16/2024 showed left-ventricular ejection fraction of 40 to 45%, global hypokinesis, moderately decreased LV function, the aortic valve had some mild to moderate para valvular leak otherwise, no other significant valvular abnormalities noted. The patient is otherwise calm and comfortable. His comorbid conditions include end-stage renal disease on hemodialysis 3 times a week and the patient has a malfunctioning AV graft and the patient is status post angioplasty and thrombolysis of the left subclavian vein. Nephrology on the case. Vascular surgery is also on the case. Hemoglobin is stable for now and there is no evidence of any GI bleeding. The patient has been anticoagulated regarding chronic atrial fibrillation. The patient has hyperlipidemia, diabetes mellitus type 2 as comorbid conditions. The patient is post TAVR procedure with some mild to moderate aortic valvular leak. 02/23/2024, the patient is being seen for a follow-up. This patient is 78 and the patient has MSSA septicemia currently on IV cefazolin. The most recent follow-up blood cultures from [facility] on 02/20/2024 were negative. The patient sander ins hemodynamically stable. On today's blood work, there is a white cell count of 15.5 with a hemoglobin of 8 and a platelet count of 211. The sodium level is 132, BUN 77 creatinine 5.38 and a potassium level is at 3.9. INR is currently at 3.9. Patient remains on IV cefazolin. The patient is on Levemir insulin 24 units at bedtime along with NovoLog 2 units with meals + scale coverage. Remain s on Demadex 40 mg p.o. daily. Remains on Flomax. The CAT scan of the brain was done today and showed no acute abnormalities and there was some nonspecific white matter changes likely secondary to chronic small vessel ischemic disease. At the same time, a chest x-ray was repeated today and shows essentially stable findings with some calcification along the pleural surface and the right and mild pulm vessel congestion without any significant interval changes compared to the earlier chest x-ray. Respiratory status is stable. The patient is currently off the BiPAP initially at 2 L and subsequently out of her oxygen with a pulse ox of 96%. The patient is also being seen by infectious disease. TREY has been ordered. The patient is being seen by nephrology. Regarding his end-stage renal disease and the patient is undergoing hemodialysis MWF. No problems with dialysis and his last dialysis session was done yesterday. No reported shortness of breath at this point in time. His MSSA ba cteremia is still being investigated and the patient is being considered for a TREY. On today's evaluation of 02/24/2024, the patient is essentially unchanged. Calm and comfortable, resting comfortably in bed. No significant respiratory distress. He remains on oxygen on room air with a pulse ox of 95%. No cough. No sputum production. No chest tightness. No wheezing. Obese, 17.8 with a hemoglobin of 8 and a platelet count of 236. BUN is 100 and the creatinine is at 7.1 and a sodium levels at 131. The patient has end-stage renal disease and the patient undergoes hemodialysis 3 times a week and he is scheduled to undergo hemodialysis today. Afebrile. Remains on IV cefazolin. Repeated blood cultures from 03/03/2024 on 02/20/2024 were negative. On 02/25/2024, seen the patient for a follow-up. Resting comfortably in bed on room air oxygen. No respiratory distress. Last hemodialysis session was yesterday. No chest pain. No shortness of breath. Hemodynamically stable. White cell count at 17 with a hemoglobin 8.1. INR is at 3.3. BUN 67 with a creatinine of 5.25 and a potassium level of 3.9. Afebrile for now. Repeat blood cultures have been negative thus far. Patient is being seen for a follow-up. Unfortunately, the TREY that was completed today showed evidence of infective endocarditis. The patient had a large vegetation noted over the anterior mitral valve leaflet consistent with diagnosis of infective endocarditis. The patient has a bioprosthetic aortic valve also. Note that he remains quite lethargic. He is awake alert and communicating. Weakness was noted in the left upper and left lower extremity and this has evolved over the past 24 to 48 hours. Septic emboli to the brain was suspected. Based on that, CAT scan of the brain was done and showed no evidence of any acute intracranial process and there was some nonspecific white matter changes likely secondary to chronic small vessel ischemic changes. Antibiotics has been switched to nafcillin. The repeat blood cultures from 02/19/2024 and 02/20/2024 were negative. White cell count is 16.7 with a hemoglobin of 8.4 and a platelet count of 227. INR is at 4.7. BUN is 94 with a creatinine of 7.05 and sodium is at 130 with a potassium level of 5.0. Consultation was placed for cardiothoracic surgery regarding the endocarditis. The patient undergoes hemodialysis 3 times a week. No significant shortness of breath. This morning, he was on room air with a pulse ox of 99%. No hypotension. No cardiac arrhythmias noted. 02/27/2024, the patient is being seen for a follow-up. He is currently on room air oxygen. Resting comfortably in bed. Considerable weakness in the left upper and left lower extremity. Remains on IV nafcillin. The patient is clinically and hemodynamically stable. As mentioned, the patient had a large vegetation involving the anterior mitral leaflet and a TREY it was done on 02/26/2024. CAT scan of the brain showed no acute abnormalities. The patient denies having any shortness of breath. No chest pain. He remains on anticoagulation with warfarin and the PT/INR is supratherapeutic and this is being managed by the medical team. No other significant issues otherwise. No skin rashes. No hematuria. Very much weak and debilitated. 02/28/2024, patient is being seen for a follow-up. Yet arousable. Follows simple commands. Left-sided weakness is obvious. MRI of the brain was also done and showed no evidence bilateral numerous peripheral and deep punctate diffusion hyperintensities correlating with c his history of infective endocarditis and ischemic changes related to septic embolism. Hemodynamically stable on IV nafcillin. Remains anticoagulated with warfarin. Remains on Demadex. No respiratory distress. Remains on room air oxygen. Afebrile. Blood cultures are negative. WBC is at 12.7 with a hemoglobin 8.6, INR is at 3.0, sodium is at 127, BUN 75 with a creatinine of 6.1. Patient was seen by nephrology. The plan is to undergo dialysis on Thursday. In terms of the atrial fibrillation, rate is controlled and the patient is on Lopressor for rate control and the patient is also on anticoagulation with warfarin. On 02/29/2024, the patient is clinically unchanged. He is following commands and answering questions. Nevertheless, his response is quite delayed. He does have septic emboli to the brain and the patient has mitral valve endocarditis and the patient remains on the nafcillin. Other complaints otherwise for now. Nephrology on the case and the patient is undergoing scheduled dialysis. He remains on torsemide. He is on PhosLo. Blood work shows a white cell count of 14, hemoglobin 8.3 and a platelet count of 209. INR is at 2.2. BUN is at 90 7.2. Sodium is 125 and a Potassium Level Is at 5.1. Patient Is Undergoing Hemodialysis MWF. No Shortness of Breath. No Cardiac Arrhythmias. Repeat Blood Cultures Were Negative. Remains on IV Nafcillin. Cardiothoracic Surgery Is on the Case. Patient was evaluated today on 03/01/2024, patient is now being treated for infective endocarditis of the mitral valve, Staph aureus sepsis, bacteremia, left-sided weakness with altered mental status. Patient had history of aortic valve stenosis and previous TAVR placement at the [facility] 07/27, patient is also known to have end-stage renal disease on hemodialysis and he has COPD and obstructive sleep apnea syndrome. Patient seems to be comfortable, he is being considered for mitral valve replacement in the future, and he is also being considered for cardiac catheterization to evaluate coronary artery disease prior. Patient is clearly a high surgical risk. WBC count today is 11 hemoglobin is 7.5 INR 1.8 sodium 127 BUN is 50 creatinine 4.97. Chest x-ray from a week ago showed mostly pulmonary vascular congestion and congestive heart failure. There was also evidence of calcification of the pleura suggestive of prior asbestos exposure. Patient was evaluated today on 03/02/2024, patient is resting in bed, is at bedside, he is on BiPAP still receiving treatment for infective endocarditis, apparently the has been in contact with the [facility], and she is clearly aware of the poor condition and the prognosis at this point, she did contact apparently the nurse practitioner at the [facility] regarding his condition, considering the patient had TAVR surgery back in August of 2023. definitely would like to have surgical intervention to be done if any at the [facility]. Meantime the patient is receiving antibiotics for his infective endocarditis.And he will eventually need transfer to a rehab facility before any surgical intervention to be considered WBC count today is 11.1 hemoglobin 7.5 INR is 1.8 sodium 127 potassium 4.9 BUN is 67 creatinine 6.68, patient remains on hemodialysis Thursday and Thursday. Patient was reevaluated today on 03/03/24, basically the patient is about the same, remains on BiPAP, he is on 07/09/30%, continues to have left-sided weakness related to his CVA. Does not seem to be in any distress, remains on antibiotics for his underlying endocarditis, arrangement for rehab is in progress, Patient was reevaluated today on 03/04/24, on 2 L nasal cannula, O2 saturation 97%, however the patient had recent episode of atrial fibrillation with RVR, cardiology was reconsulted, I found out today that cardiology has signed off his case, the meantime the patient is receiving antibiotics for his endocarditis, and the overall prognostic picture seems to be extremely poor and guarded. Apparently family is considering rehab somewhere near [facility] but that is in progress pulmonary graham the patient is intermittently on BiPAP, does not seem to be in distress when I saw him today. WBC count is normal at 9.3. Sodium is 129 potassium 4.3 BUN is 56 creatinine 6.04 patient has MSSA bacteremia, still receiving antibiotics as per infectious disease. And has been on nafcillin Objective - Vital Signs Vital signs: Vital Signs Temp 98.5 F 03/03/24 20:45 Pulse 111 H 03/04/24 15:37 Resp 24 03/04/24 15:37 BP 175/84 03/04/24 15:37 Pulse Ox 97 03/04/24 12:59 FiO2 40 03/04/24 12:59 Intake & Output 03/03/24 03/04/24 03/04/24 18:59 06:59 18:59 Intake Total 118 Output Total 0 Balance 118 Intake: Oral 118 Output: Stool 0 Other: Voiding Method External Catheter External Catheter # Bowel Movements 1 - Exam CONSTITUTIONAL: Appears comfortable, cooperative, no acute distress, patient is BiPAP FiO2 10/5/30% RESPIRATORY: Clear bilaterally no rhonchi no wheezes CARDIOVASCULAR: S1, S2 present, systolic murmur present. Irregular rate and rhythm, controlled atrial fibrillation on telemetry. Palpable peripheral pulses bilaterally. No edema present. No calf pain or tenderness noted GASTROINTESTINAL: Abdomen soft, nontender, nondistended. Active bowel sounds present 4 quadrants. INTEGUMENTARY: Skin is warm and dry with evidence of good perfusion NEUROLOGIC: Cranial nerves II through XII intact, slow to respond but is completely oriented and following commands patient has mostly left-sided weakness related to his CVA MUSKULOSKELETAL: Able to move all extremities, generalized weakness present, left greater than right PSYCHIATRIC: Alert and oriented to person place and time - Labs CBC & Chem 7: 03/04/24 09:13 03/04/24 09:13 Labs: Abnormal Lab Results - Last 24 Hours (Table) 03/03/24 03/03/24 03/03/24 Range/Units 16:18 20:20 21:14 RBC (4.30-5.90) m/uL Hgb (13.0-17.5) gm/dL Hct (39.0-53.0) % RDW (11.5-15.5) % PT (10.0-12.5) sec INR (<1.2) Sodium (137-145) mmol/L Chloride (98-107) mmol/L BUN (9-20) mg/dL Creatinine (0.66-1.25) mg/dL Glucose (74-99) mg/dL POC Glucose (mg/dL) 277 H 165 H 181 H (70-110) mg/dL Calcium (8.4-10.2) mg/dL 03/04/24 03/04/24 03/04/24 Range/Units 06:13 09:13 09:13 RBC 2.50 L (4.30-5.90) m/uL Hgb 7.8 L (13.0-17.5) gm/dL Hct 24.7 L (39.0-53.0) % RDW 15.6 H (11.5-15.5) % PT 17.3 H (10.0-12.5) sec INR 1.7 H (<1.2) Sodium (137-145) mmol/L Chloride (98-107) mmol/L BUN (9-20) mg/dL Creatinine (0.66-1.25) mg/dL Glucose (74-99) mg/dL POC Glucose (mg/dL) 128 H (70-110) mg/dL Calcium (8.4-10.2) mg/dL 03/04/24 03/04/24 Range/Units 09:13 11:31 RBC (4.30-5.90) m/uL Hgb (13.0-17.5) gm/dL Hct (39.0-53.0) % RDW (11.5-15.5) % PT (10.0-12.5) sec INR (<1.2) Sodium 129 L (137-145) mmol/L Chloride 92 L (98-107) mmol/L BUN 56 H (9-20) mg/dL Creatinine 6.04 H (0.66-1.25) mg/dL Glucose 128 H (74-99) mg/dL POC Glucose (mg/dL) 178 H (70-110) mg/dL Calcium 7.6 L (8.4-10.2) mg/dL Assessment and Plan Assessment: Impression: Acute infective endocarditis involving the anterior leaflet of the mitral valve Staph aureus bacteremia and sepsis History of CVA Anemia of chronic disease End-stage renal disease, on hemodialysis History of underlying COPD Obstructive sleep apnea syndrome, on BiPAP Ex-smoker Recommendation: Reconsult cardiology for his atrial fibrillation/RVR Continue antibiotics/nafcillin Continue hemodialysis, Thursday Placement in rehab facility is in progress before further evaluation at the [facility]. Continue bronchodilators/DuoNeb Will continue to follow while inpatient Time with Patient: Less than 30
[2024-03-04] MEDS: WARFARIN 3 MG TAB PO ONE (18:30)
[2024-03-04 20:15] LABS: Glucose,Whole Blood 195 mg/dL (70-110)
[2024-03-04] MEDS: NAFCILLIN 2 GM in DEXTROSE 5% IN WATER 100 ML IVPB SCH (22:26)
--- NOTE | 2024-03-05 03:05 | EEG ---
DATE OF SERVICE: 03/04/2024 ELECTROENCEPHALOGRAM REPORT PREAMBLE: This is a 78-year-old male with history of multiple embolic stroke due to septic emboli, has episodes of staring off. This study is performed to rule out any epileptiform activity. EEG FINDINGS: This is a 21-channel digital EEG recorded with video component, utilizing 10/20 international system with referential and bipolar montages. The background consists of predominantly moderate amplitude 4-6 hertz theta activity intermixed with some occasional alpha and some 2-3 hertz delta activity seen in bihemispheric region. Background does not seem to be reactive to eye opening or closing. Photic driving response was not seen. Different stages of sleep were not seen. No focal or generalized epileptiform activity was seen. IMPRESSION: This is an abnormal EEG due to background slowing of moderate degree. This is suggestive of generalized cerebral dysfunction as can be seen with toxic metabolic encephalopathy or related to diffuse structural brain abnormality. Clinical correlation is recommended. No epileptiform activity was seen. MMODL / IJN: [id number] / [facility]
[2024-03-05 03:14] LABS: Glucose,Whole Blood 123 mg/dL (70-110)
[2024-03-05 06:23] LABS: Glucose,Whole Blood 93 mg/dL (70-110)
[2024-03-05 07:05] LABS: Glucose,Whole Blood 84 mg/dL (70-110)
[2024-03-05 08:10] LABS: Basophils # (A) 0.1 k/uL (0-0.2); Basophils % (A) 1 %; Eosinophils # (A) 0.2 k/uL (0-0.7); Eosinophils % (A) 2 %; HCT 23.9 % (39.0-53.0); HGB 7.4 gm/dL (13.0-17.5); Lymphocytes # (A) 0.9 k/uL (1.0-4.8); Lymphocytes % (A) 10 %; MCH 30.4 pg (25.0-35.0); MCV 98.1 fL (80.0-100.0); Macrocytosis Slight; Mean Platelet Volume 10.1; Monocytes # (A) 0.7 k/uL (0-1.0); Monocytes % (A) 7 %; Neutrophils # (A) 7.2 k/uL (1.3-7.7); Neutrophils % (A) 79 %; Platelet Count 146 k/uL (150-450); RBC 2.43 m/uL (4.30-5.90); RDW 15.7 % (11.5-15.5); WBC 9.1 k/uL (3.8-10.6)
[2024-03-05 08:14] LABS: INR 1.7 (<1.2); Prothrombin Time 17.2 sec (10.0-12.5)
[2024-03-05 08:36] LABS: African American GFR (CKD) 10 (>60 ml/min/1.73 sqM); Anion Gap 5 mmol/L; Blood Urea Nitrogen 48 mg/dL (9-20); Calcium 7.9 mg/dL (8.4-10.2); Carbon Dioxide 33 mmol/L (22-30); Chloride 94 mmol/L (98-107); Glucose 86 mg/dL (74-99); Magnesium 2.2 mg/dL (1.6-2.3); Non-African American GFR(CKD) 9 (>60 ml/min/1.73 sqM); Sodium 132 mmol/L (137-145)
[2024-03-05 09:50] LABS: Glucose,Whole Blood 168 mg/dL (70-110)
--- NOTE | 2024-03-05 10:25 | XR ---
EXAMINATION TYPE: XR chest 1V portable DATE OF EXAM: 03/05/2024 COMPARISON: 03/02/2024 HISTORY: Shortness of breath TECHNIQUE: Single frontal view of the chest is obtained. FINDINGS: There is interval worsening in the pulmonary vascular congestion and pulmonary edema. Ther e are probable small pleural effusions. Again noted is calcified pleural plaques. Chronic rotator cuff tear of the right shoulder is suspected. IMPRESSION: 1. Worsening cardiopulmonary disease suspicious for CHF. 2. Calcified pleural-based plaques indicating prior asbestos exposure
[2024-03-05 10:56] LABS: ABG Base Excess 6.6 mmol/L; ABG HCO3 31 mmol/L (21-25); ABG Oxygen Saturation 99.8 % (94-97); ABG PCO2 44 mmHg (35-45); ABG PH 7.46 (7.35-7.45); ABG PO2 129 mmHg (83-108); Allen Test Performed? Yes
[2024-03-05 11:40] LABS: Glucose,Whole Blood 191 mg/dL (70-110)
--- NOTE | 2024-03-05 12:10 | P.PN ---
Subjective Progress Note Date: 03/05/24 This is Reginald Ace NP, I'm dictating on behalf of Dr. West's H&P and A&P. Patient was interviewed and examined. Patient is a pleasant 78-year-old female who presented to the hospital with sepsis and was found to be in A-fib with RVR. We were reconsulted due to continued elevated heart rates. Discussed the patient's case with telemetry. They report that her elevated heart rates are lasting anywhere from seconds to just short of a minute in length. GENERAL: Well-appearing, well-nourished and in no acute distress. NECK: Supple without JVD or thyromegaly. LUNGS: Breath sounds clear to auscultation bilaterally. Respiration equal and unlabored. No wheezes, rales or rhonchi. HEART: Regular rate and rhythm without murmurs, rubs or gallops. S1 and S2 heard. EXTREMITIES: Normal range of motion, no edema. No clubbing or cyanosis. Peripheral pulses intact and strong. VITALS: Temp 98.4, pulse 91, respirations 18, blood pressure 125/67, O2 saturation 99% on 2 L TELEMETRY: Atrial fibrillation with controlled ventricular response LABS: White count 9.1, hemoglobin 7.4, platelets 146, sodium 132, potassium 4.0, BUN 58, creatinine 5.61, magnesium 2.2 IMPRESSION: 1. Sepsis with MSSA bacteremia 2. Endocarditis with large vegetation on the anterior leaflet of the mitral valve 3. Paroxysmal atrial fibrillation with rapid ventricular response 4. Left bundle branch block 5. End-stage renal disease on hemodialysis 6. Anemia of chronic disease 7. Hypertension 8. Hyperlipidemia 9. Diabetes 10. Obstructive sleep apnea PLAN: Metoprolol has been increased to 75 mg twice daily. Continue this. Patient's heart rate is expected to get better with continued improvement in the infection. No further recommendations from a cardiology standpoint. Thank you for allowing us to participate in the care of this patient. Objective - Vital Signs Vital signs: Vital Signs Temp 98.4 F 03/05/24 08:42 Pulse 103 H 03/05/24 08:45 Resp 18 03/05/24 08:45 BP 125/67 03/05/24 08:42 Pulse Ox 99 03/05/24 08:42 FiO2 28 03/05/24 11:01 Intake & Output 03/04/24 03/05/24 03/05/24 18:59 06:59 18:59 Intake Total 500 100 Output Total 2500 150 Balance -1999 Intake: Intake, IV Titration 100 Amount Nafcillin 2 gm In 100 Dextrose 5% in Water 100 ml @ 50 mls/hr IVPB Q4H [facility] Rx#:[id number] Hemodialysis 500 Output: Urine 150 Hemodialysis 2500 Other: Voiding Method External Catheter External Catheter External Catheter # Bowel Movements 1 - Labs CBC & Chem 7: 03/05/24 07:55 03/05/24 07:55 Labs: Abnormal Lab Results - Last 24 Hours (Table) 03/04/24 03/04/24 03/05/24 Range/Units 16:15 20:13 03:13 RBC (4.30-5.90) m/uL Hgb (13.0-17.5) gm/dL Hct (39.0-53.0) % RDW (11.5-15.5) % Plt Count (150-450) k/uL Lymphocytes # (1.0-4.8) k/uL PT (10.0-12.5) sec INR (<1.2) ABG pH (7.35-7.45) ABG pO2 (83-108) mmHg ABG HCO3 (21-25) mmol/L ABG O2 Saturation (94-97) % Sodium (137-145) mmol/L Chloride (98-107) mmol/L Carbon Dioxide (22-30) mmol/L BUN (9-20) mg/dL Creatinine (0.66-1.25) mg/dL POC Glucose (mg/dL) 130 H 195 H 123 H (70-110) mg/dL Calcium (8.4-10.2) mg/dL 03/05/24 03/05/24 03/05/24 Range/Units 07:55 07:55 07:55 RBC 2.43 L (4.30-5.90) m/uL Hgb 7.4 L (13.0-17.5) gm/dL Hct 23.9 L (39.0-53.0) % RDW 15.7 H (11.5-15.5) % Plt Count 146 L (150-450) k/uL Lymphocytes # 0.9 L (1.0-4.8) k/uL PT 17.2 H (10.0-12.5) sec INR 1.7 H (<1.2) ABG pH (7.35-7.45) ABG pO2 (83-108) mmHg ABG HCO3 (21-25) mmol/L ABG O2 Saturation (94-97) % Sodium 132 L (137-145) mmol/L Chloride 94 L (98-107) mmol/L Carbon Dioxide 33 H (22-30) mmol/L BUN 48 H (9-20) mg/dL Creatinine 5.61 H (0.66-1.25) mg/dL POC Glucose (mg/dL) (70-110) mg/dL Calcium 7.9 L (8.4-10.2) mg/dL 03/05/24 03/05/24 03/05/24 Range/Units 09:48 10:46 11:38 RBC (4.30-5.90) m/uL Hgb (13.0-17.5) gm/dL Hct (39.0-53.0) % RDW (11.5-15.5) % Plt Count (150-450) k/uL Lymphocytes # (1.0-4.8) k/uL PT (10.0-12.5) sec INR (<1.2) ABG pH 7.46 H (7.35-7.45) ABG pO2 129 H (83-108) mmHg ABG HCO3 31 H (21-25) mmol/L ABG O2 Saturation 99.8 H (94-97) % Sodium (137-145) mmol/L Chloride (98-107) mmol/L Carbon Dioxide (22-30) mmol/L BUN (9-20) mg/dL Creatinine (0.66-1.25) mg/dL POC Glucose (mg/dL) 168 H 191 H (70-110) mg/dL Calcium (8.4-10.2) mg/dL
--- NOTE | 2024-03-05 12:29 | P.PN ---
Subjective Progress Note Date: 03/04/24 Patient was seen for follow-up. Patient has BiPAP going on. He has again developed atrial fibrillation. No new concerns. Objective - Vital Signs Vital signs: Vital Signs Temp 98.5 F 03/03/24 20:45 Pulse 103 H 03/04/24 17:41 Resp 22 03/04/24 16:27 BP 175/84 03/04/24 15:37 Pulse Ox 100 03/04/24 17:39 FiO2 40 03/04/24 17:39 Intake & Output 03/03/24 03/04/24 03/04/24 18:59 06:59 18:59 Intake Total 118 Output Total 0 Balance 118 Intake: Oral 118 Output: Stool 0 Other: Voiding Method External Catheter External Catheter External Catheter # Bowel Movements 1 - Exam Patient laying in the bed with BiPAP on. Examination deferred. - Labs CBC & Chem 7: 03/05/24 07:55 03/05/24 07:55 Labs: Abnormal Lab Results - Last 24 Hours (Table) 03/03/24 03/03/24 03/04/24 Range/Units 20:20 21:14 06:13 RBC (4.30-5.90) m/uL Hgb (13.0-17.5) gm/dL Hct (39.0-53.0) % RDW (11.5-15.5) % PT (10.0-12.5) sec INR (<1.2) Sodium (137-145) mmol/L Chloride (98-107) mmol/L BUN (9-20) mg/dL Creatinine (0.66-1.25) mg/dL Glucose (74-99) mg/dL POC Glucose (mg/dL) 165 H 181 H 128 H (70-110) mg/dL Calcium (8.4-10.2) mg/dL 03/04/24 03/04/24 03/04/24 Range/Units 09:13 09:13 09:13 RBC 2.50 L (4.30-5.90) m/uL Hgb 7.8 L (13.0-17.5) gm/dL Hct 24.7 L (39.0-53.0) % RDW 15.6 H (11.5-15.5) % PT 17.3 H (10.0-12.5) sec INR 1.7 H (<1.2) Sodium 129 L (137-145) mmol/L Chloride 92 L (98-107) mmol/L BUN 56 H (9-20) mg/dL Creatinine 6.04 H (0.66-1.25) mg/dL Glucose 128 H (74-99) mg/dL POC Glucose (mg/dL) (70-110) mg/dL Calcium 7.6 L (8.4-10.2) mg/dL 03/04/24 03/04/24 Range/Units 11:31 16:15 RBC (4.30-5.90) m/uL Hgb (13.0-17.5) gm/dL Hct (39.0-53.0) % RDW (11.5-15.5) % PT (10.0-12.5) sec INR (<1.2) Sodium (137-145) mmol/L Chloride (98-107) mmol/L BUN (9-20) mg/dL Creatinine (0.66-1.25) mg/dL Glucose (74-99) mg/dL POC Glucose (mg/dL) 178 H 130 H (70-110) mg/dL Calcium (8.4-10.2) mg/dL Assessment and Plan Assessment: * Acute, multiple, small multifocal areas of ischemic infarction noted on MRI brain, likely due to septic emboli from bacterial endocarditis. 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 * Anemia of chronic disease * End-stage renal disease on hemodialysis * Diabetes * Diabetic neuropathy * Obstructive sleep apnea * Ex-smoker Plan: * Await repeat CT head, evaluate for any interval changes compared to last MRI. Rule out any hemorrhage. * EEG was performed, which was abnormal due to background slowing of moderate degree. This is suggestive of generalized cerebral dysfunction as can be seen with toxic metabolic encephalopathy or related to diffuse structural brain abnormality. Clinical correlation is recommended. No epileptiform activity was seen. * Patient currently on nafcillin 2 g every 4 hours IV, for infective endocarditis, ID on board. * Patient currently on Coumadin, INR today subtherapeutic 1.7. Although infective endocarditis, antiplatelets are given, however patient has atrial fibrillation, therefore on Coumadin. * Hemoglobin A1c 8.8. Recommend optimize control of diabetes to target A1c <7.0 * Fasting lipid panel. Continue Lipitor 10 mg daily. * B12 1552, TSH 0.78 normal. * PT OT, speech therapy. * Other medical management as per IM and other specialties on board.
--- NOTE | 2024-03-05 12:46 | P.PN ---
Subjective Progress Note Date: 03/05/24 Principal diagnosis: Acute infective endocarditis/anterior leaflet of the mitral valve On today's evaluation of 02/22/2024, seen the patient for a follow-up. The patient is currently undergoing hemodialysis and is resting comfortably in bed while awaiting a BiPAP at a pressure of 10/5 with an FiO2 of 30%. No significant respiratory distress at this point in time. Noted the patient had staphylococcal bacteremia/MSSA and the patient is currently on IV cefazolin. Pulse ox is in the order of 94% while wearing the BiPAP. No labs are available from today. Yesterday's labs were noted. The white cell count at 13.7 with a hemoglobin of 8.1 and a platelet count of 140. The most recent chest x-ray from 02/18/2024 showed cardiomegaly and mild pulm vascular congestion. No evidence of any consolidation or airspace disease. Echocardiogram on 02/16/2024 showed left-ventricular ejection fraction of 40 to 45%, global hypokinesis, moderately decreased LV function, the aortic valve had some mild to moderate para valvular leak otherwise, no other significant valvular abnormalities noted. The patient is otherwise calm and comfortable. His comorbid conditions include end-stage renal disease on hemodialysis 3 times a week and the patient has a malfunctioning AV graft and the patient is status post angioplasty and thrombolysis of the left subclavian vein. Nephrology on the case. Vascular surgery is also on the case. Hemoglobin is stable for now and there is no evidence of any GI bleeding. The patient has been anticoagulated regarding chronic atrial fibrillation. The patient has hyperlipidemia, diabetes mellitus type 2 as comorbid conditions. The patient is post TAVR procedure with some mild to moderate aortic valvular leak. 02/23/2024, the patient is being seen for a follow-up. This patient is 78 and the patient has MSSA septicemia currently on IV cefazolin. The most recent follow-up blood cultures from [facility] on 02/20/2024 were negative. The patient sander ins hemodynamically stable. On today's blood work, there is a white cell count of 15.5 with a hemoglobin of 8 and a platelet count of 211. The sodium level is 132, BUN 77 creatinine 5.38 and a potassium level is at 3.9. INR is currently at 3.9. Patient remains on IV cefazolin. The patient is on Levemir insulin 24 units at bedtime along with NovoLog 2 units with meals + scale coverage. Remain s on Demadex 40 mg p.o. daily. Remains on Flomax. The CAT scan of the brain was done today and showed no acute abnormalities and there was some nonspecific white matter changes likely secondary to chronic small vessel ischemic disease. At the same time, a chest x-ray was repeated today and shows essentially stable findings with some calcification along the pleural surface and the right and mild pulm vessel congestion without any significant interval changes compared to the earlier chest x-ray. Respiratory status is stable. The patient is currently off the BiPAP initially at 2 L and subsequently out of her oxygen with a pulse ox of 96%. The patient is also being seen by infectious disease. TREY has been ordered. The patient is being seen by nephrology. Regarding his end-stage renal disease and the patient is undergoing hemodialysis MWF. No problems with dialysis and his last dialysis session was done yesterday. No reported shortness of breath at this point in time. His MSSA ba cteremia is still being investigated and the patient is being considered for a TREY. On today's evaluation of 02/24/2024, the patient is essentially unchanged. Calm and comfortable, resting comfortably in bed. No significant respiratory distress. He remains on oxygen on room air with a pulse ox of 95%. No cough. No sputum production. No chest tightness. No wheezing. Obese, 17.8 with a hemoglobin of 8 and a platelet count of 236. BUN is 100 and the creatinine is at 7.1 and a sodium levels at 131. The patient has end-stage renal disease and the patient undergoes hemodialysis 3 times a week and he is scheduled to undergo hemodialysis today. Afebrile. Remains on IV cefazolin. Repeated blood cultures from 03/03/2024 on 02/20/2024 were negative. On 02/25/2024, seen the patient for a follow-up. Resting comfortably in bed on room air oxygen. No respiratory distress. Last hemodialysis session was yesterday. No chest pain. No shortness of breath. Hemodynamically stable. White cell count at 17 with a hemoglobin 8.1. INR is at 3.3. BUN 67 with a creatinine of 5.25 and a potassium level of 3.9. Afebrile for now. Repeat blood cultures have been negative thus far. Patient is being seen for a follow-up. Unfortunately, the TREY that was completed today showed evidence of infective endocarditis. The patient had a large vegetation noted over the anterior mitral valve leaflet consistent with diagnosis of infective endocarditis. The patient has a bioprosthetic aortic valve also. Note that he remains quite lethargic. He is awake alert and communicating. Weakness was noted in the left upper and left lower extremity and this has evolved over the past 24 to 48 hours. Septic emboli to the brain was suspected. Based on that, CAT scan of the brain was done and showed no evidence of any acute intracranial process and there was some nonspecific white matter changes likely secondary to chronic small vessel ischemic changes. Antibiotics has been switched to nafcillin. The repeat blood cultures from 02/19/2024 and 02/20/2024 were negative. White cell count is 16.7 with a hemoglobin of 8.4 and a platelet count of 227. INR is at 4.7. BUN is 94 with a creatinine of 7.05 and sodium is at 130 with a potassium level of 5.0. Consultation was placed for cardiothoracic surgery regarding the endocarditis. The patient undergoes hemodialysis 3 times a week. No significant shortness of breath. This morning, he was on room air with a pulse ox of 99%. No hypotension. No cardiac arrhythmias noted. 02/27/2024, the patient is being seen for a follow-up. He is currently on room air oxygen. Resting comfortably in bed. Considerable weakness in the left upper and left lower extremity. Remains on IV nafcillin. The patient is clinically and hemodynamically stable. As mentioned, the patient had a large vegetation involving the anterior mitral leaflet and a TREY it was done on 02/26/2024. CAT scan of the brain showed no acute abnormalities. The patient denies having any shortness of breath. No chest pain. He remains on anticoagulation with warfarin and the PT/INR is supratherapeutic and this is being managed by the medical team. No other significant issues otherwise. No skin rashes. No hematuria. Very much weak and debilitated. 02/28/2024, patient is being seen for a follow-up. Yet arousable. Follows simple commands. Left-sided weakness is obvious. MRI of the brain was also done and showed no evidence bilateral numerous peripheral and deep punctate diffusion hyperintensities correlating with c his history of infective endocarditis and ischemic changes related to septic embolism. Hemodynamically stable on IV nafcillin. Remains anticoagulated with warfarin. Remains on Demadex. No respiratory distress. Remains on room air oxygen. Afebrile. Blood cultures are negative. WBC is at 12.7 with a hemoglobin 8.6, INR is at 3.0, sodium is at 127, BUN 75 with a creatinine of 6.1. Patient was seen by nephrology. The plan is to undergo dialysis on Thursday. In terms of the atrial fibrillation, rate is controlled and the patient is on Lopressor for rate control and the patient is also on anticoagulation with warfarin. On 02/29/2024, the patient is clinically unchanged. He is following commands and answering questions. Nevertheless, his response is quite delayed. He does have septic emboli to the brain and the patient has mitral valve endocarditis and the patient remains on the nafcillin. Other complaints otherwise for now. Nephrology on the case and the patient is undergoing scheduled dialysis. He remains on torsemide. He is on PhosLo. Blood work shows a white cell count of 14, hemoglobin 8.3 and a platelet count of 209. INR is at 2.2. BUN is at 90 7.2. Sodium is 125 and a Potassium Level Is at 5.1. Patient Is Undergoing Hemodialysis MWF. No Shortness of Breath. No Cardiac Arrhythmias. Repeat Blood Cultures Were Negative. Remains on IV Nafcillin. Cardiothoracic Surgery Is on the Case. Patient was evaluated today on 03/01/2024, patient is now being treated for infective endocarditis of the mitral valve, Staph aureus sepsis, bacteremia, left-sided weakness with altered mental status. Patient had history of aortic valve stenosis and previous TAVR placement at the [facility] 07/27, patient is also known to have end-stage renal disease on hemodialysis and he has COPD and obstructive sleep apnea syndrome. Patient seems to be comfortable, he is being considered for mitral valve replacement in the future, and he is also being considered for cardiac catheterization to evaluate coronary artery disease prior. Patient is clearly a high surgical risk. WBC count today is 11 hemoglobin is 7.5 INR 1.8 sodium 127 BUN is 50 creatinine 4.97. Chest x-ray from a week ago showed mostly pulmonary vascular congestion and congestive heart failure. There was also evidence of calcification of the pleura suggestive of prior asbestos exposure. Patient was evaluated today on 03/02/2024, patient is resting in bed, is at bedside, he is on BiPAP still receiving treatment for infective endocarditis, apparently the has been in contact with the [facility], and she is clearly aware of the poor condition and the prognosis at this point, she did contact apparently the nurse practitioner at the [facility] regarding his condition, considering the patient had TAVR surgery back in August of 2023. definitely would like to have surgical intervention to be done if any at the [facility]. Meantime the patient is receiving antibiotics for his infective endocarditis.And he will eventually need transfer to a rehab facility before any surgical intervention to be considered WBC count today is 11.1 hemoglobin 7.5 INR is 1.8 sodium 127 potassium 4.9 BUN is 67 creatinine 6.68, patient remains on hemodialysis Thursday and Thursday. Patient was reevaluated today on 03/03/24, basically the patient is about the same, remains on BiPAP, he is on 07/09/30%, continues to have left-sided weakness related to his CVA. Does not seem to be in any distress, remains on antibiotics for his underlying endocarditis, arrangement for rehab is in progress, Patient was reevaluated today on 03/04/24, on 2 L nasal cannula, O2 saturation 97%, however the patient had recent episode of atrial fibrillation with RVR, cardiology was reconsulted, I found out today that cardiology has signed off his case, the meantime the patient is receiving antibiotics for his endocarditis, and the overall prognostic picture seems to be extremely poor and guarded. Apparently family is considering rehab somewhere near [facility] but that is in progress pulmonary graham the patient is intermittently on BiPAP, does not seem to be in distress when I saw him today. WBC count is normal at 9.3. Sodium is 129 potassium 4.3 BUN is 56 creatinine 6.04 patient has MSSA bacteremia, still receiving antibiotics as per infectious disease. And has been on nafcillin Patient was evaluated today on 03/05/2024, basically he is about the same hemodynamically stable, he is on nasal cannula at present at 2 L, does not seem to be in any distress, intermittently on BiPAP. Mentation graham, the patient seems to be slow, he did have acute multiple small multifocal areas of ischemic infarcts on the MRI. This was felt to be related to septic emboli from bacterial endocarditis. Patient remains on antibiotics/nafcillin, being addressed by infectious disease on the case. Eventually the patient may require surgical intervention however he is extremely high surgical risk, and this may have to be done at the [facility] according to the who prefers to do so. ABG today showed on 40% showed a pO2 of 129 pCO2 44 pH of 7.46 Objective - Vital Signs Vital signs: Vital Signs Temp 98.4 F 03/05/24 08:42 Pulse 65 03/05/24 12:00 Resp 18 03/05/24 12:00 BP 134/64 03/05/24 12:00 Pulse Ox 99 03/05/24 12:00 FiO2 28 03/05/24 12:00 Intake & Output 03/04/24 03/05/24 03/05/24 18:59 06:59 18:59 Intake Total 500 100 Output Total 2500 150 Balance -1999 Intake: Intake, IV Titration 100 Amount Nafcillin 2 gm In 100 Dextrose 5% in Water 100 ml @ 50 mls/hr IVPB Q4H [facility] Rx#:[id number] Hemodialysis 500 Output: Urine 150 Hemodialysis 2500 Other: Voiding Method External Catheter External Catheter External Catheter # Bowel Movements 1 - Exam CONSTITUTIONAL: Appears comfortable, cooperative, no acute distress, on 2 L nasal cannula RESPIRATORY: Clear bilaterally no rhonchi no wheezes CARDIOVASCULAR: S1, S2 present, systolic murmur present. Irregular rate and rhythm, controlled atrial fibrillation on telemetry. Palpable peripheral pulses bilaterally. No edema present. No calf pain or tenderness noted GASTROINTESTINAL: Abdomen soft, nontender, nondistended. Active bowel sounds present 4 quadrants. INTEGUMENTARY: Skin is warm and dry with evidence of good perfusion NEUROLOGIC: Cranial nerves II through XII intact, slow to respond but is completely oriented and following commands patient has mostly left-sided weakness related to his CVA MUSKULOSKELETAL: Able to move all extremities, generalized weakness present, left greater than right PSYCHIATRIC: Alert and oriented to person place and time - Labs CBC & Chem 7: 03/05/24 07:55 03/05/24 07:55 Labs: Abnormal Lab Results - Last 24 Hours (Table) 03/04/24 03/04/24 03/05/24 Range/Units 16:15 20:13 03:13 RBC (4.30-5.90) m/uL Hgb (13.0-17.5) gm/dL Hct (39.0-53.0) % RDW (11.5-15.5) % Plt Count (150-450) k/uL Lymphocytes # (1.0-4.8) k/uL PT (10.0-12.5) sec INR (<1.2) ABG pH (7.35-7.45) ABG pO2 (83-108) mmHg ABG HCO3 (21-25) mmol/L ABG O2 Saturation (94-97) % Sodium (137-145) mmol/L Chloride (98-107) mmol/L Carbon Dioxide (22-30) mmol/L BUN (9-20) mg/dL Creatinine (0.66-1.25) mg/dL POC Glucose (mg/dL) 130 H 195 H 123 H (70-110) mg/dL Calcium (8.4-10.2) mg/dL 03/05/24 03/05/24 03/05/24 Range/Units 07:55 07:55 07:55 RBC 2.43 L (4.30-5.90) m/uL Hgb 7.4 L (13.0-17.5) gm/dL Hct 23.9 L (39.0-53.0) % RDW 15.7 H (11.5-15.5) % Plt Count 146 L (150-450) k/uL Lymphocytes # 0.9 L (1.0-4.8) k/uL PT 17.2 H (10.0-12.5) sec INR 1.7 H (<1.2) ABG pH (7.35-7.45) ABG pO2 (83-108) mmHg ABG HCO3 (21-25) mmol/L ABG O2 Saturation (94-97) % Sodium 132 L (137-145) mmol/L Chloride 94 L (98-107) mmol/L Carbon Dioxide 33 H (22-30) mmol/L BUN 48 H (9-20) mg/dL Creatinine 5.61 H (0.66-1.25) mg/dL POC Glucose (mg/dL) (70-110) mg/dL Calcium 7.9 L (8.4-10.2) mg/dL 06/01/24 06/01/24 06/01/24 Range/Units 09:48 10:46 11:38 RBC (4.30-5.90) m/uL Hgb (13.0-17.5) gm/dL Hct (39.0-53.0) % RDW (11.5-15.5) % Plt Count (150-450) k/uL Lymphocytes # (1.0-4.8) k/uL PT (10.0-12.5) sec INR (<1.2) ABG pH 7.46 H (7.35-7.45) ABG pO2 129 H (83-108) mmHg ABG HCO3 31 H (21-25) mmol/L ABG O2 Saturation 99.8 H (94-97) % Sodium (137-145) mmol/L Chloride (98-107) mmol/L Carbon Dioxide (22-30) mmol/L BUN (9-20) mg/dL Creatinine (0.66-1.25) mg/dL POC Glucose (mg/dL) 168 H 191 H (70-110) mg/dL Calcium (8.4-10.2) mg/dL Assessment and Plan Assessment: Impression: Acute infective endocarditis involving the anterior leaflet of the mitral valve Staph aureus bacteremia and sepsis Acute CVA/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
--- NOTE | 2024-03-05 13:04 | P.PN ---
Subjective Patient is seen for follow-up for end-stage renal disease. Maintained on Thursday schedule. currently on BiPAP Objective - Vital Signs Vital signs: Vital Signs Temp 98.4 F 03/05/24 08:42 Pulse 65 03/05/24 12:00 Resp 18 03/05/24 12:00 BP 134/64 03/05/24 12:00 Pulse Ox 99 03/05/24 12:00 FiO2 28 03/05/24 12:00 Intake & Output 03/04/24 03/05/24 03/05/24 18:59 06:59 18:59 Intake Total 500 100 Output Total 2500 150 Balance -1999 Intake: Intake, IV Titration 100 Amount Nafcillin 2 gm In 100 Dextrose 5% in Water 100 ml @ 50 mls/hr IVPB Q4H [facility] Rx#:[id number] Hemodialysis 500 Output: Urine 150 Hemodialysis 2500 Other: Voiding Method External Catheter External Catheter External Catheter # Bowel Movements 1 - Exam patient is awake, comfortable, no acute distress. Examination of the heart S1 and S2, systolic murmur Examination of the lungs bilateral breath sounds are heard decreased breath s ounds at the bases Abdomen is soft nontender Examination of lower extremities shows no significant edema. 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 exam grossly intact - Labs CBC & Chem 7: 03/05/24 07:55 03/05/24 07:55 Labs: Abnormal Lab Results - Last 24 Hours (Table) 03/04/24 03/04/24 03/05/24 Range/Units 16:15 20:13 03:13 RBC (4.30-5.90) m/uL Hgb (13.0-17.5) gm/dL Hct (39.0-53.0) % RDW (11.5-15.5) % Plt Count (150-450) k/uL Lymphocytes # (1.0-4.8) k/uL PT (10.0-12.5) sec INR (<1.2) ABG pH (7.35-7.45) ABG pO2 (83-108) mmHg ABG HCO3 (21-25) mmol/L ABG O2 Saturation (94-97) % Sodium (137-145) mmol/L Chloride (98-107) mmol/L Carbon Dioxide (22-30) mmol/L BUN (9-20) mg/dL Creatinine (0.66-1.25) mg/dL POC Glucose (mg/dL) 130 H 195 H 123 H (70-110) mg/dL Calcium (8.4-10.2) mg/dL 03/05/24 03/05/24 03/05/24 Range/Units 07:55 07:55 07:55 RBC 2.43 L (4.30-5.90) m/uL Hgb 7.4 L (13.0-17.5) gm/dL Hct 23.9 L (39.0-53.0) % RDW 15.7 H (11.5-15.5) % Plt Count 146 L (150-450) k/uL Lymphocytes # 0.9 L (1.0-4.8) k/uL PT 17.2 H (10.0-12.5) sec INR 1.7 H (<1.2) ABG pH (7.35-7.45) ABG pO2 (83-108) mmHg ABG HCO3 (21-25) mmol/L ABG O2 Saturation (94-97) % Sodium 132 L (137-145) mmol/L Chloride 94 L (98-107) mmol/L Carbon Dioxide 33 H (22-30) mmol/L BUN 48 H (9-20) mg/dL Creatinine 5.61 H (0.66-1.25) mg/dL POC Glucose (mg/dL) (70-110) mg/dL Calcium 7.9 L (8.4-10.2) mg/dL 03/05/24 03/05/24 03/05/24 Range/Units 09:48 10:46 11:38 RBC (4.30-5.90) m/uL Hgb (13.0-17.5) gm/dL Hct (39.0-53.0) % RDW (11.5-15.5) % Plt Count (150-450) k/uL Lymphocytes # (1.0-4.8) k/uL PT (10.0-12.5) sec INR (<1.2) ABG pH 7.46 H (7.35-7.45) ABG pO2 129 H (83-108) mmHg ABG HCO3 31 H (21-25) mmol/L ABG O2 Saturation 99.8 H (94-97) % Sodium (137-145) mmol/L Chloride (98-107) mmol/L Carbon Dioxide (22-30) mmol/L BUN (9-20) mg/dL Creatinine (0.66-1.25) mg/dL POC Glucose (mg/dL) 168 H 191 H (70-110) mg/dL Calcium (8.4-10.2) mg/dL Assessment and Plan Assessment: 1. End-stage renal disease on hemodialysis on a Thursday schedule via left arm AV graft. AV graft is functional. Status post fistulogr am and angioplasty 02/16/2024 2. A. fib with RVR status post Cardizem drip 3. MSSA bacteremia on antibiotics. ID following. TREY showed a large vegetation on the mitral valve. CTS following. Septic emboli noted on MRI. No surgical intervention planned at this time due to being high risk. Repeat blood cultures are negative. Patient will need cardiac cath if surgery is planned down the road. 4. Volume overload, improved 5. Acute hypoxic respiratory failure secondary to volume overload, improved. Plan: hemodialysis on a Thursday schedule. Continue with IV antibiotics. Encourage increase oral intake.
--- NOTE | 2024-03-05 14:17 | P.PN ---
Subjective Progress Note Date: 03/05/24 (delcayed charting seen at approx 10 am) Patient is a 78-year-old male with known end-stage renal disease on hemodialysis Thursday/Thursday/Thursday, diabetes, atrial fibrillation anticoagulated with Coumadin, prior bioprosthetic aortic valve, dyslipidemia, and BPH who initially presented with confusion and weakness. Patient has had a very prolonged hospital stay where he was found to have MSSA bacteremia with infectious endocarditis of the mitral valve associated with cerebral septic emboli and associated mental status changes. During this hospital stay patient has been followed by CT surgery who did not find any class I indication for intervention at this time, cardiology, infectious disease, vascular surgery, nephrology, and critical care. This is my first evaluation of the patient on hospital day # 18 Patient seen and examined at bedside. He states he was short of breath and is unsure if this felt like his prior episodes of fluid overload. He feels better and like he can rest on the BiPAP. Denies any nausea or vomiting. 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 Vital signs reviewed General: [nontoxic], chronically ill-appearing, mild distress, [appears at stated age] Cardiovascular: [S1S2 reg], [no murmur] Lungs: Coarse breath sounds bilaterally, [no rhonchi, no rales] , [no accessory muscle use] Abdominal: [soft], [ nontender to palpation], [no guarding] Ext: [no gross muscle atrophy], [trace edema b/l lower extremities], [no contractures] Psych: Lethargic but awakes to verbal stimuli, [oriented], [appropriate affect] Assessment/Plan: MSSA bacteremia with sepsis Infective endocarditis of the mitral valve Acute toxic metabolic encephalopathy secondary to acute ischemia from septic emboli -Nafcillin 2 g IV piggyback every 4 hours day #10 (prior to that patient had treatment with vancomycin and cefepime and cefazolin for total of an additional 10 days) -Repeat blood cultures negative since 02/18 -CT surgery note reviewed: No surgical intervention at this time, recommend continuing antibiotics per infectious disease. Patient may benefit from mitral valve replacement down the road but would be extremely high risk. 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 -Neurology note reviewed: Acute CVA due to septic emboli. Await repeat head CT patient on Coumadin instead of antiplatelets due to history of atrial fibrillation End-stage renal disease Malfunction of the AV graft Status post angioplasty and thrombolysis -Nephrology note reviewed: Continue with hemodialysis on Thursday/Thursday/Thursday -Vascular surgery signed off Acute exacerbation of systolic heart failure with an EF of 40-45% Atrial fibrillation with RVR Type II non-ST elevation WI, Likely due to sepsis History of TAVR - diuresis managed with HD -Metoprolol 75 mg twice daily -Torsemide 40 mg daily -Lipitor 10 mg at night -Patient takes midodrine as needed before dialysis Diabetes mellitus type 2 -Blood sugars have been as low as 84 and as high as 191 today. -Patient receiving Levemir 24 units at night, NovoLog 2 units with meals 3 times daily, and sliding scale insulin -Decrease Levemir to 20 units at night, increase NovoLog to 4 units with lunch and dinner, continue with sliding scale insulin - orals on hold Melena with possible lower GI bleed, Resolved. Has been restarted on coumadin Thrombocytopenia likely due to sepsis, improved Imaging: Chest x-ray ordered and reviewed by myself which is consistent with increased pulmonary vascular congestion. Data Review: Labs reviewed from today include CBC and basic metabolic profile which are remarkable for hemoglobin 7.4, platelets 146, INR 1.7, sodium 132, BUN 48, creatinine 5.61. ABG also revealed which showed a pH of 7.46, CO2 44, PaO2 129. DVT prophylaxis: Coumadin Anticipated discharge date: Pending clinical course Anticipated discharge place: [facility] facility This dictation was prepared using [employer] voice recognition software. Though every attempt is made to correct errors during dictation some may still exist. Objective - Vital Signs Vital signs: Vital Signs Temp 98.4 F 03/05/24 08:42 Pulse 65 03/05/24 12:00 Resp 18 03/05/24 12:00 BP 134/64 03/05/24 12:00 Pulse Ox 99 03/05/24 12:00 FiO2 28 03/05/24 12:00 Intake & Output 03/04/24 03/05/24 03/05/24 18:59 06:59 18:59 Intake Total 500 100 Output Total 2500 150 Balance -1999 Intake: Intake, IV Titration 100 Amount Nafcillin 2 gm In 100 Dextrose 5% in Water 100 ml @ 50 mls/hr IVPB Q4H [facility] Rx#:[id number] Hemodialysis 500 Output: Urine 150 Hemodialysis 2500 Other: Voiding Method External Catheter External Catheter External Catheter # Bowel Movements 1 - Labs CBC & Chem 7: 03/05/24 07:55 03/05/24 07:55 Labs: Abnormal Lab Results - Last 24 Hours (Table) 03/04/24 03/04/24 03/05/24 Range/Units 16:15 20:13 03:13 RBC (4.30-5.90) m/uL Hgb (13.0-17.5) gm/dL Hct (39.0-53.0) % RDW (11.5-15.5) % Plt Count (150-450) k/uL Lymphocytes # (1.0-4.8) k/uL PT (10.0-12.5) sec INR (<1.2) ABG pH (7.35-7.45) ABG pO2 (83-108) mmHg ABG HCO3 (21-25) mmol/L ABG O2 Saturation (94-97) % Sodium (137-145) mmol/L Chloride (98-107) mmol/L Carbon Dioxide (22-30) mmol/L BUN (9-20) mg/dL Creatinine (0.66-1.25) mg/dL POC Glucose (mg/dL) 130 H 195 H 123 H (70-110) mg/dL Calcium (8.4-10.2) mg/dL 03/05/24 03/05/24 03/05/24 Range/Units 07:55 07:55 07:55 RBC 2.43 L (4.30-5.90) m/uL Hgb 7.4 L (13.0-17.5) gm/dL Hct 23.9 L (39.0-53.0) % RDW 15.7 H (11.5-15.5) % Plt Count 146 L (150-450) k/uL Lymphocytes # 0.9 L (1.0-4.8) k/uL PT 17.2 H (10.0-12.5) sec INR 1.7 H (<1.2) ABG pH (7.35-7.45) ABG pO2 (83-108) mmHg ABG HCO3 (21-25) mmol/L ABG O2 Saturation (94-97) % Sodium 132 L (137-145) mmol/L Chloride 94 L (98-107) mmol/L Carbon Dioxide 33 H (22-30) mmol/L BUN 48 H (9-20) mg/dL Creatinine 5.61 H (0.66-1.25) mg/dL POC Glucose (mg/dL) (70-110) mg/dL Calcium 7.9 L (8.4-10.2) mg/dL 03/05/24 03/05/24 03/05/24 Range/Units 09:48 10:46 11:38 RBC (4.30-5.90) m/uL Hgb (13.0-17.5) gm/dL Hct (39.0-53.0) % RDW (11.5-15.5) % Plt Count (150-450) k/uL Lymphocytes # (1.0-4.8) k/uL PT (10.0-12.5) sec INR (<1.2) ABG pH 7.46 H (7.35-7.45) ABG pO2 129 H (83-108) mmHg ABG HCO3 31 H (21-25) mmol/L ABG O2 Saturation 99.8 H (94-97) % Sodium (137-145) mmol/L Chloride (98-107) mmol/L Carbon Dioxide (22-30) mmol/L BUN (9-20) mg/dL Creatinine (0.66-1.25) mg/dL POC Glucose (mg/dL) 168 H 191 H (70-110) mg/dL Calcium (8.4-10.2) mg/dL
--- NOTE | 2024-03-05 14:29 | P.PN ---
Subjective Progress Note Date: 03/05/24 Principal diagnosis: Reason for follow-up with MSSA bacteremia Patient is a 78-year-old male with a past medical his significant for diabetes mellitus hypertension hyperlipidemia atrial fibrillation history of end-stage renal disease on dialysis through left arm AV graft patient has been brought into the hospital for fever weakness and did have bacteremia.Patient did have a TREY completed on 02/26/2024 with evidence of a large vegetation on the anterior mitral leaflet there was no mention of any vegetation on the bioprosthetic aortic valve. On today's evaluation that is 03/05/2024, Patient is afebrile patient is currently on 2 L nasal cannula oxygen and denies having any shortness of breath, the patient denies any chest pain or cough, the patient denies any nausea vomiting did not have any abdominal pain and no diarrhea, patient seen to be slightly more awake and alert today mention feeling better. Patient white count is 9.1, creatinine is 5.61 blood culture repeat has been negative Objective - Vital Signs Vital signs: Vital Signs Temp 98.4 F 03/05/24 08:42 Pulse 103 H 03/05/24 08:45 Resp 18 03/05/24 08:45 BP 125/67 03/05/24 08:42 Pulse Ox 99 03/05/24 08:42 FiO2 28 03/05/24 11:01 Intake & Output 03/04/24 03/05/24 03/05/24 18:59 06:59 18:59 Intake Total 500 100 Output Total 2500 150 Balance -2000 -50 Intake: Intake, IV Titration 100 Amount Nafcillin 2 gm In 100 Dextrose 5% in Water 100 ml @ 50 mls/hr IVPB Q4H [facility] Rx#:[id number] Hemodialysis 500 Output: Urine 150 Hemodialysis 2500 Other: Voiding Method External Catheter External Catheter External Catheter # Bowel Movements 1 - Exam GENERAL DESCRIPTION: An elderly male lying in bed in no distress RESPIRATORY SYSTEM: Unlabored breathing , decreased breath sounds at bases HEART: S1 S2 regular rate and rhythm , ABDOMEN: Soft , no tenderness - Labs CBC & Chem 7: 03/05/24 07:55 03/05/24 07:55 Labs: Abnormal Lab Results - Last 24 Hours (Table) 03/04/24 03/04/24 03/05/24 Range/Units 16:15 20:13 03:13 RBC (4.30-5.90) m/uL Hgb (13.0-17.5) gm/dL Hct (39.0-53.0) % RDW (11.5-15.5) % Plt Count (150-450) k/uL Lymphocytes # (1.0-4.8) k/uL PT (10.0-12.5) sec INR (<1.2) ABG pH (7.35-7.45) ABG pO2 (83-108) mmHg ABG HCO3 (21-25) mmol/L ABG O2 Saturation (94-97) % Sodium (137-145) mmol/L Chloride (98-107) mmol/L Carbon Dioxide (22-30) mmol/L BUN (9-20) mg/dL Creatinine (0.66-1.25) mg/dL POC Glucose (mg/dL) 130 H 195 H 123 H (70-110) mg/dL Calcium (8.4-10.2) mg/dL 03/05/24 03/05/24 03/05/24 Range/Units 07:55 07:55 07:55 RBC 2.43 L (4.30-5.90) m/uL Hgb 7.4 L (13.0-17.5) gm/dL Hct 23.9 L (39.0-53.0) % RDW 15.7 H (11.5-15.5) % Plt Count 146 L (150-450) k/uL Lymphocytes # 0.9 L (1.0-4.8) k/uL PT 17.2 H (10.0-12.5) sec INR 1.7 H (<1.2) ABG pH (7.35-7.45) ABG pO2 (83-108) mmHg ABG HCO3 (21-25) mmol/L ABG O2 Saturation (94-97) % Sodium 132 L (137-145) mmol/L Chloride 94 L (98-107) mmol/L Carbon Dioxide 33 H (22-30) mmol/L BUN 48 H (9-20) mg/dL Creatinine 5.61 H (0.66-1.25) mg/dL POC Glucose (mg/dL) (70-110) mg/dL Calcium 7.9 L (8.4-10.2) mg/dL 0603/05/24 03/05/24 Range/Units 09:48 10:46 11:38 RBC (4.30-5.90) m/uL Hgb (13.0-17.5) gm/dL Hct (39.0-53.0) % RDW (11.5-15.5) % Plt Count (150-450) k/uL Lymphocytes # (1.0-4.8) k/uL PT (10.0-12.5) sec INR (<1.2) ABG pH 7.46 H (7.35-7.45) ABG pO2 129 H (83-108) mmHg ABG HCO3 31 H (21-25) mmol/L ABG O2 Saturation 99.8 H (94-97) % Sodium (137-145) mmol/L Chloride (98-107) mmol/L Carbon Dioxide (22-30) mmol/L BUN (9-20) mg/dL Creatinine (0.66-1.25) mg/dL POC Glucose (mg/dL) 168 H 191 H (70-110) mg/dL Calcium (8.4-10.2) mg/dL Assessment and Plan (1) Leukocytosis Current Visit: Yes Status: Acute Code(s): D72.829 - ELEVATED WHITE BLOOD CELL COUNT, UNSPECIFIED SNOMED Code(s): 733197562 (2) MSSA bacteremia Current Visit: Yes Status: Acute Code(s): R78.81 - BACTEREMIA; B95.61 - METHICILLIN SUSCEP STAPH INFCT CAUSING DIS CLASSD ELSWHR SNOMED Code(s): 164000851 Plan: 1patient with MSSA bacteremia in this patient who do have a history of renal failure with on hemodialysis with a left arm fistula site with presentation to the hospital with weakness fall and urinary frequency however UA is negative abdominal soft no significant respiratory symptoms or hypoxemia question of possible related to the fistula site which was nonfunctioning and did have angiogram and angioplasty done this admission. 2blood cultures repeated 02/17/2024 came back positive blood culture has been repeated 02/19/2024 as well as 02/20/2024 are so far negative keeping in mind his TAVR procedure, cardiology has been consulted for TREY which was completed 02/26/2024 with evidence of large vegetation on the anterior mitral valve leaflet did not mention any vegetation on the bioprosthetic aortic valve 3-CT surgery has been consulted because of the large vegetation patient has been evaluated by CT surgery recommending no surgical intervention at this point, patient family has got an opinion from [facility] per discussion with the daughter they are recommended to continue with the medical treatment 4-patient is afebrile and white count normal patient continue with Naficillin and monitor clinical course closely. Family at the bedside questions were answered Dictation was produced using [employer] dictation software. please excuse any grammatical, word or spelling errors. Time with Patient: Less than 30
[2024-03-05 16:28] LABS: Glucose,Whole Blood 229 mg/dL (70-110)
[2024-03-05] MEDS: WARFARIN 2.5 MG TAB PO ONE (17:13)
[2024-03-05] MEDS: INSULIN ASPART (NovoLOG) 100 UNIT/ML VIAL SQ SCH (17:13)
--- NOTE | 2024-03-05 17:43 | CT ---
EXAMINATION TYPE: CT brain wo con DATE OF EXAM: 03/04/2024 COMPARISON: 02/26/2024 INDICATION: follow up cva DLP: 1197.2 mGycm, Automated exposure control for dose reduction was used. CONTRAST: None CT of the brain is performed utilizing 3 mm thick sections through the posterior fossa and 3 mm thick sections through the remaining calvarium. Study is performed within 24 hours of arrival to the hosp ital. No abnormal hyperdensity is present to suggest an acute intracranial hemorrhage. No mass lesion is evident. No acute infarcts are evident. Ventricles and sulci are prominent for the patient age. Paranasal sinuses and mastoid air cells within the [id number] are clear. IMPRESSION: 1. Atrophy. Findings appear stable from comparison 2. No acute intracranial process radiographically apparent. Follow-up MRI can be performed as clinica lly indicated.
[2024-03-05 20:40] LABS: Glucose,Whole Blood 212 mg/dL (70-110)
--- NOTE | 2024-03-05 23:02 | CT ---
EXAMINATION TYPE: CT chest angio for PE DATE OF EXAM: 03/05/2024 COMPARISON: HISTORY: TYRONE/RENAL FAILURE CT DLP: 617.4 mGycm Automated exposure control for dose reduction was used. CONTRAST: CT Chest for pulmonary embolism performed with with IV Contrast, patient injected with 100 ml mL of I sovue 370. FINDINGS: The radiologist clay preparation supervisor Dr. Ricky Short did not reduce films for over 3 hours and the case is pres ented to me at 10:52 PM 03/05/2024. LUNGS: There is diffuse groundglass and subsegmental consolidation with bilateral pleural effusions s mall on the left and moderate on the right. Pleural-based calcifications compatible with asbestos rel ated disease\inhalational disease. MEDIASTINUM: Exam is limited for pulmonary embolism due to artifact. There is no evidence of a sizabl e filling defect within the main pulmonary arteries. The main pulmonary trunk within normal limits of size. Secondary branches enhance normally. Third order and distal branches are limited. Previous aor tic valve surgery replacement noted. Report was called to the patient's nurse at 10:58 PM 03/05/2024. OTHER: There is degenerative change of the spine. There is gynecomastia. Artifact limits assessment of the upper abdomen. Thickening of the adrenal glands nonspecific most likely in the basis of hyperp lasia. Right-sided PICC line noted in position. IMPRESSION: 1. Diffuse pleural-parenchymal changes correlate for CHF. Otherwise consider pneumonia. 2. No central pulmonary embolism. No evidence of RV strain. There is extensive artifact which limits the third order and distal branches. Could not exclude a pulmonary embolus in this distribution. Ther e is a question of a tiny filling defect within a distal branch of the right upper lobe. 3. Correlate for inhalational disease\is best is related disease. Follow-up recommendations for incidental pulmonary nodules are per [employer] or [employer].
[2024-03-05 23:58] LABS: Glucose,Whole Blood 111 mg/dL (70-110)
[2024-03-06] MEDS: INSULIN DETEMIR (LEVEMIR) 100 UNIT/ML SYR SQ SCH (00:12)
[2024-03-06] MEDS: BUMETANIDE 0.25 MG/ML 4 ML VIAL IVP STA (01:06)
[2024-03-06] MEDS: NAFCILLIN 2 GM in DEXTROSE 5% IN WATER 100 ML IVPB SCH (04:05)
[2024-03-06 06:30] LABS: Glucose,Whole Blood 158 mg/dL (70-110)
[2024-03-06 07:08] LABS: Glucose,Whole Blood 150 mg/dL (70-110)
[2024-03-06] MEDS: INSULIN ASPART (NovoLOG) 100 UNIT/ML VIAL SQ SCH ×2 (07:09→12:47)
[2024-03-06 07:28] LABS: INR 1.7 (<1.2)
[2024-03-06 08:17] LABS: HCT 23.4 % (39.0-53.0); HGB 7.3 gm/dL (13.0-17.5); MCH 30.8 pg (25.0-35.0); MCHC 31.2 g/dL (31.0-37.0); MCV 98.5 fL (80.0-100.0); Macrocytosis Slight; Mean Platelet Volume 9.2; Platelet Count 174 k/uL (150-450); RBC 2.37 m/uL (4.30-5.90); RDW 15.9 % (11.5-15.5); WBC 12.7 k/uL (3.8-10.6)
[2024-03-06 08:38] LABS: ALT <6 U/L (4-49); AST 33 U/L (17-59); African American GFR (CKD) 14 (>60 ml/min/1.73 sqM); Albumin 2.9 g/dL (3.5-5.0); Alkaline Phosphatase 74 U/L (38-126); Anion Gap 6 mmol/L; Blood Urea Nitrogen 37 mg/dL (9-20); Calcium 7.8 mg/dL (8.4-10.2); Carbon Dioxide 30 mmol/L (22-30); Chloride 96 mmol/L (98-107); Glucose 155 mg/dL (74-99); Non-African American GFR(CKD) 12 (>60 ml/min/1.73 sqM); Potassium 4.1 mmol/L (3.5-5.1); Sodium 132 mmol/L (137-145); Total Bilirubin 1.7 mg/dL (0.2-1.3); Total Protein 5.9 g/dL (6.3-8.2)
--- NOTE | 2024-03-06 10:07 | P.PN ---
Subjective Patient is seen for follow-up for end-stage renal disease. Maintained on Thursday schedule. patient develop significant respiratory distress yesterday with chest x-ray showing evidence of CHF. Patient had an extra treatment of hemodialysis last night. He is currently off of BiPAP. Does not appear to be short of breath at rest. UF of 2.9 L last night. Discussed with primary surface regarding possible transfer to [facility] for further intervention regarding mitral valve vegetation. Objective - Vital Signs Vital signs: Vital Signs Temp 99.4 F 03/06/24 07:55 Pulse 73 03/06/24 07:55 Resp 20 03/06/24 07:55 BP 136/72 03/06/24 07:55 Pulse Ox 98 03/06/24 07:55 FiO2 28 03/06/24 00:00 Intake & Output 03/05/24 03/06/24 03/06/24 18:59 06:59 18:59 Intake Total 400 Output Total 2900 Balance -2500 Weight 98.1 kg Intake: Oral 0 Hemodialysis 400 Output: Urine 0 Hemodialysis 2900 Other: Voiding Method External Catheter External Catheter - Exam patient is awake, comfortable, no acute distress. Examination of the heart S1 and S2, systolic murmur Examination of the lungs bilateral breath sounds are heard decreased breath sounds at the bases Abdomen is soft nontender Examination of lower extremities shows no significant edema. 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 - Labs CBC & Chem 7: 03/06/24 07:54 03/06/24 07:54 Labs: Abnormal Lab Results - Last 24 Hours (Table) 03/05/24 03/05/24 03/05/24 Range/Units 10:46 11:38 16:26 WBC (3.8-10.6) k/uL RBC (4.30-5.90) m/uL Hgb (13.0-17.5) gm/dL Hct (39.0-53.0) % RDW (11.5-15.5) % PT (10.0-12.5) sec INR (<1.2) ABG pH 7.46 H (7.35-7.45) ABG pO2 129 H (83-108) mmHg ABG HCO3 31 H (21-25) mmol/L ABG O2 Saturation 99.8 H (94-97) % Sodium (137-145) mmol/L Chloride (98-107) mmol/L BUN (9-20) mg/dL Creatinine (0.66-1.25) mg/dL Glucose (74-99) mg/dL POC Glucose (mg/dL) 191 H 229 H (70-110) mg/dL Calcium (8.4-10.2) mg/dL Total Bilirubin (0.2-1.3) mg/dL Total Protein (6.3-8.2) g/dL Albumin (3.5-5.0) g/dL 03/05/24 03/05/24 03/06/24 Range/Units 20:39 23:55 06:02 WBC (3.8-10.6) k/uL RBC (4.30-5.90) m/uL Hgb (13.0-17.5) gm/dL Hct (39.0-53.0) % RDW (11.5-15.5) % PT 17.0 H (10.0-12.5) sec INR 1.7 H (<1.2) ABG pH (7.35-7.45) ABG pO2 (83-108) mmHg ABG HCO3 (21-25) mmol/L ABG O2 Saturation (94-97) % Sodium (137-145) mmol/L Chloride (98-107) mmol/L BUN (9-20) mg/dL Creatinine (0.66-1.25) mg/dL Glucose (74-99) mg/dL POC Glucose (mg/dL) 212 H 111 H (70-110) mg/dL Calcium (8.4-10.2) mg/dL Total Bilirubin (0.2-1.3) mg/dL Total Protein (6.3-8.2) g/dL Albumin (3.5-5.0) g/dL 03/06/24 03/06/24 03/06/24 Range/Units 06:29 07:06 07:54 WBC 12.7 H (3.8-10.6) k/uL RBC 2.37 L (4.30-5.90) m/uL Hgb 7.3 L (13.0-17.5) gm/dL Hct 23.4 L (39.0-53.0) % RDW 15.9 H (11.5-15.5) % PT (10.0-12.5) sec INR (<1.2) ABG pH (7.35-7.45) ABG pO2 (83-108) mmHg ABG HCO3 (21-25) mmol/L ABG O2 Saturation (94-97) % Sodium (137-145) mmol/L Chloride (98-107) mmol/L BUN (9-20) mg/dL Creatinine (0.66-1.25) mg/dL Glucose (74-99) mg/dL POC Glucose (mg/dL) 158 H 150 H (70-110) mg/dL Calcium (8.4-10.2) mg/dL Total Bilirubin (0.2-1.3) mg/dL Total Protein (6.3-8.2) g/dL Albumin (3.5-5.0) g/dL 03/06/24 Range/Units 07:54 WBC (3.8-10.6) k/uL RBC (4.30-5.90) m/uL Hgb (13.0-17.5) gm/dL Hct (39.0-53.0) % RDW (11.5-15.5) % PT (10.0-12.5) sec INR (<1.2) ABG pH (7.35-7.45) ABG pO2 (83-108) mmHg ABG HCO3 (21-25) mmol/L ABG O2 Saturation (94-97) % Sodium 132 L (137-145) mmol/L Chloride 96 L (98-107) mmol/L BUN 37 H (9-20) mg/dL Creatinine 4.37 H (0.66-1.25) mg/dL Glucose 155 H (74-99) mg/dL POC Glucose (mg/dL) (70-110) mg/dL Calcium 7.8 L (8.4-10.2) mg/dL Total Bilirubin 1.7 H (0.2-1.3) mg/dL Total Protein 5.9 L (6.3-8.2) g/dL Albumin 2.9 L (3.5-5.0) g/dL Assessment and Plan Assessment: 1. End-stage renal disease on hemodialysis on a Thursday schedule via left arm AV graft. AV graft is functional. Status post fistulogr am and angioplasty 02/16/2024 2. A. fib with RVR status post Cardizem drip 3. MSSA bacteremia on antibiotics. ID following. TREY showed a large vegetation on the mitral valve. CTS following. Septic emboli noted on MRI. No surgical intervention planned at this time due to being high risk. Repeat blood cultures are negative. Patient will need cardiac cath if surgery is planned down the road. 4. Volume overload, improved 5. Acute hypoxic respiratory failure secondary to volume overload, improved. Plan: hemodialysis on a Thursday schedule. Continue with IV antibiotics. Encourage increase oral intake. discussed with primary service regarding transfer to [facility] for further intervention of mitral valve vegetation
--- NOTE | 2024-03-06 11:18 | P.PN ---
Subjective Progress Note Date: 03/05/24 Patient was seen for follow-up. Patient is doing much better. Patient's was also present today. Patient's examination also has improved as below. Patient continues to have weakness of the left side. Offers no new complaints. Objective - Vital Signs Vital signs: Vital Signs Temp 99.8 F H 03/05/24 16:00 Pulse 106 H 03/05/24 16:00 Resp 18 03/05/24 16:00 BP 130/62 03/05/24 16:00 Pulse Ox 99 03/05/24 16:00 FiO2 28 03/05/24 16:00 Intake & Output 03/04/24 03/05/24 03/05/24 18:59 06:59 18:59 Intake Total 500 100 Output Total 2500 150 Balance -1999 Intake: Intake, IV Titration 100 Amount Nafcillin 2 gm In 100 Dextrose 5% in Water 100 ml @ 50 mls/hr IVPB Q4H LAKISHA Rx#:[id number] Hemodialysis 500 Output: Urine 150 Hemodialysis 2500 Other: Voiding Method External Catheter External Catheter External Catheter # Bowel Movements 1 - Exam Patient is laying comfortably in the bed. He is alert and awake. Patient's speech and language functions are normal. Patient can name and repeat. No dysarthria. Patient states it is February 1919. He knows he is in [facility] in [place] and name of the current president and that he is in [facility], and that he lives in [facility]. He knows that his wedding anniversary is on March 10, and the wedding date was 03/10/1970. He appears more comfortable, has oxygen by nasal cannula. Abdomen is soft. His visual layne are full, pupils are, round and reacting to light. Face is symmetric. Tongue protrudes the midline. Hearing appears normal. On muscle strength testing, patient has left pronator drift about 5. On muscle strength testing (right/left deltoid 3 3-/3 3-, biceps 5/4, triceps 5-4+/3+4-, colorman 5-/3, hip flexion 3+/3+, ankle dorsiflexion 2+3-/2+3-. Patient has peripheral edema. - Labs CBC & Chem 7: 03/06/24 07:54 06/02/24 07:54 Labs: Abnormal Lab Results - Last 24 Hours (Table) 03/04/24 03/05/24 03/05/24 Range/Units 20:13 03:13 07:55 RBC 2.43 L (4.30-5.90) m/uL Hgb 7.4 L (13.0-17.5) gm/dL Hct 23.9 L (39.0-53.0) % RDW 15.7 H (11.5-15.5) % Plt Count 146 L (150-450) k/uL Lymphocytes # 0.9 L (1.0-4.8) k/uL PT (10.0-12.5) sec INR (<1.2) ABG pH (7.35-7.45) ABG pO2 (83-108) mmHg ABG HCO3 (21-25) mmol/L ABG O2 Saturation (94-97) % Sodium (137-145) mmol/L Chloride (98-107) mmol/L Carbon Dioxide (22-30) mmol/L BUN (9-20) mg/dL Creatinine (0.66-1.25) mg/dL POC Glucose (mg/dL) 195 H 123 H (70-110) mg/dL Calcium (8.4-10.2) mg/dL 03/05/24 03/05/24 03/05/24 Range/Units 07:55 07:55 09:48 RBC (4.30-5.90) m/uL Hgb (13.0-17.5) gm/dL Hct (39.0-53.0) % RDW (11.5-15.5) % Plt Count (150-450) k/uL Lymphocytes # (1.0-4.8) k/uL PT 17.2 H (10.0-12.5) sec INR 1.7 H (<1.2) ABG pH (7.35-7.45) ABG pO2 (83-108) mmHg ABG HCO3 (21-25) mmol/L ABG O2 Saturation (94-97) % Sodium 132 L (137-145) mmol/L Chloride 94 L (98-107) mmol/L Carbon Dioxide 33 H (22-30) mmol/L BUN 48 H (9-20) mg/dL Creatinine 5.61 H (0.66-1.25) mg/dL POC Glucose (mg/dL) 168 H (70-110) mg/dL Calcium 7.9 L (8.4-10.2) mg/dL 03/05/24 03/05/24 03/05/24 Range/Units 10:46 11:38 16:26 RBC (4.30-5.90) m/uL Hgb (13.0-17.5) gm/dL Hct (39.0-53.0) % RDW (11.5-15.5) % Plt Count (150-450) k/uL Lymphocytes # (1.0-4.8) k/uL PT (10.0-12.5) sec INR (<1.2) ABG pH 7.46 H (7.35-7.45) ABG pO2 129 H (83-108) mmHg ABG HCO3 31 H (21-25) mmol/L ABG O2 Saturation 99.8 H (94-97) % Sodium (137-145) mmol/L Chloride (98-107) mmol/L Carbon Dioxide (22-30) mmol/L BUN (9-20) mg/dL Creatinine (0.66-1.25) mg/dL POC Glucose (mg/dL) 191 H 229 H (70-110) mg/dL Calcium (8.4-10.2) mg/dL Assessment and Plan Assessment: * Acute, multiple, small multifocal areas of ischemic infarction noted on MRI brain, likely due to septic emboli from bacterial endocarditis. 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 * Anemia of chronic disease * End-stage renal disease on hemodialysis * Diabetes * Diabetic neuropathy * Obstructive sleep apnea * Ex-smoker Plan: * Repeat CT head, revealed atrophy, findings appears stable from comparison. No acute intracranial process. I personally reviewed CT head, agree with the findings. No hemorrhage. * EEG was performed, which was abnormal due to background slowing of moderate degree. This is suggestive of generalized cerebral dysfunction as can be seen with toxic metabolic encephalopathy or related to diffuse structural brain abnormality. Clinical correlation is recommended. No epileptiform activity was seen. * Patient currently on nafcillin 2 g every 4 hours IV, for infective endocarditis, ID on board. * Patient currently on Coumadin, INR today subtherapeutic 1.7. Although infective endocarditis, antiplatelets are given, however patient has atrial fibrillation, therefore on Coumadin. * Hemoglobin A1c 8.8. Recommend optimize control of diabetes to target A1c <7.0 * Fasting lipid panel. Continue Lipitor 10 mg daily. * B12 1552, TSH 0.78 normal. * PT OT, speech therapy. * Other medical management as per IM and other specialties on board. * Patient will need prolonged therapy. * Neurology will follow sporadically. However call our services if any concerns. * Neurologically, no other workup indicated. Dr. Pantoja starting neurology service from Thursday.
[2024-03-06 12:15] LABS: Glucose,Whole Blood 259 mg/dL (70-110)
[2024-03-06 13:03] LABS: LDL Cholesterol,Calculated 53.6 mg/dL (0.0-131.0)
--- NOTE | 2024-03-06 13:31 | P.DS ---
Providers Date of admission: 02/15/24 16:47 Expected date of discharge: 03/06/24 Attending physician: Kamille Hernandez MD Consults: 02/15/24 17:15 Consult Physician Routine Consulting Provider: Laura Serra Consult Reason/Comments: HD Do you want consulting provider notified?: Yes 02/16/24 12:31 Consult Physician Routine Consulting Provider: Rosey Butler Consult Reason/Comments: Sepsis Do you want consulting provider notified?: Yes 02/16/24 16:44 Consult Physician Routine Consulting Provider: Ricky Pantoja Consult Reason/Comments: CHF, respiratory failure Do you want consulting provider notified?: Yes 02/21/24 15:52 Consult Physician Routine Consulting Provider: Laurie Jarrell Consult Reason/Comments: Positive blood culture need for TREY to rule out endocarditis Do you want consulting provider notified?: Yes 02/26/24 10:21 Consult Physician Routine Consulting Provider: Tapan Jaimes Consult Reason/Comments: vegetation Do you want consulting provider notified?: Yes 03/03/24 13:21 Consult Physician Routine Consulting Provider: Dannie Torres Consult Reason/Comments: embolic strokes Do you want consulting provider notified?: Yes Primary care physician: [facility] Hospital Course: Discharge Diagnosis: MSSA bacteremia with sepsis Infective endocarditis of the mitral valve -Nafcillin 2 g IV piggyback every 4 hours day #11 (prior to that patient had treatment with vancomycin and cefepime and cefazolin for total of an additional 10 days), PICC line in place and has been okayed with nephrology, Repeat blood cultures negative since 02/18 Acute toxic metabolic encephalopathy secondary to acute ischemia from septic emboli Acute exacerbation of systolic heart failure with an EF of 40-45%, susupect releated to worsening mitral valve dysfunction End-stage renal disease Malfunction of the AV graft Status post angioplasty and thrombolysis Atrial fibrillation with RVR, anticogulated with coumadin. Type II non-ST elevation NC, Likely due to sepsis History of TAVR Diabetes mellitus type 2 Melena with possible lower GI bleed, Resolved. Has been restarted on coumadin Thrombocytopenia likely due to sepsis, improved Hospital Course: Patient is a 78-year-old male with with known diabetes, atrial fibrillation anticoagulated with Coumadin, prior aortic valve replacement, dyslipidemia, end- stage renal disease on hemodialysis Thursday/Thursday/Thursday, and BPH who presented to the emergency department due to confusion and weakness. He was at [facility] dialysis they terminated treatment after 1 hour due to a fever. On arrival to the emergency department he was noted to be febrile to 104.1 with a heart rate of 140. Initial laboratory analysis was remarkable for white blood cell count 19.4, platelets 131, lactic acid 2.6, troponin 0.12, and renal function consistent with his known dialysis. Influenza A/B/RSV/COVID-19 testing was negative. Patient was admitted for sepsis of unknown etiology and A-fib with RVR. He was to started on vancomycin and cefepime as well as a Cardizem drip. Critical care and cardiology were consulted. Echocardiogram was performed which demonstrated ejection fraction of 40 to 45% with mild to moderate perivalvular leak of his aortic valve replacement. Vascular surgery was consulted as his dialysis access is not working. On 02/15 he underwent left upper extremity fistulogram with transluminal ballooning and thrombolysis at proximal aspect of graft. He then underwent hemodialysis and became slightly hypotensive requiring initiation of norepinephrine. He was subsequently transferred to the ICU. He was noted to have melanotic stools, his hemoglobin stabilized. He was evaluated by GI and had a recent outpatient colonoscopy without active bleeding and therefore no additional intervention was recommended. Blood cultures that were drawn on admission came back positive for MSSA. Infectious disease was conuslted and antibiotics were ultimately transitioned to nafcillin. His Blood cutlures cleared by 02/19/24. Transesophageal echocardiogram was performed on on 02/25/2024 and demonstrated a large vegetation attached to the anterior mitral leaflet that is freely flowing [id number] into the atria noted with mild to moderate mitral regurgitation. Tricuspid valve showed mild regurgitation. Bioprosthetic valve noted in the aortic position with mild aortic regurg. Intra-atrial septum without shunting. He developed left sided deficits. He underwent CT brain which was negative. MRI of the brain was performed which showed numerous peripheral and deep punctate diffusion hyperintensities correlating with septic emboli. He was seen by thoracic surgery who recommended continued IV antibiotics due to patient being high risk. Neurology was consulted. Patient did undergo EEG which demonstrated mild background slowing. Neurology did recommend resumption of his Coumadin which he is on for anticoagulation of his atrial fibrillation. Patient was continued on an IV antibiotics and did have improvement in his fever profile and his leukocytosis. On 03/05/2024 patient developed worsening dyspnea. Chest x-ray was repeated which now showed signs of fluid overload. Patient was requiring BiPAP and subsequently underwent emergent hemodialysis with removal of 2.5 L of fluid. He had a repeat CT brain which again showed no acute process. Prior to HD on 03/05/24 he underwent CTA of the chest which demonstrated congestive heart failure with no pulmonary embolism and no note of septic emboli. Overnight on 03/05/2024 patient again spiked fevers with a Tmax of 100.7. His white blood cell count increased to 12.7. Due to cardiothoracic surgery feeling that the patient would be better served at a tertiary care center should he require intervention on the valve [facility] was contacted as the patient had received a TAVR there in July [address]. [address]. Stanley excepted the patient. Currently awaiting bed. Family is in agreement with transfer. Case was discussed with Kenia and daughter Brianda. Patient seen and examined at bedside. He reports that his breathing is better, he is feeling weak. He deneis nausea. He is not hungry. Vital signs reviewed and stable. General: Nontoxic, no distress, appears at stated age Cardiovascular: S1S2 reg, no murmur, positive posterior tibial pulse bilateral, Lungs: Course bilateral, no rhonchi, no rales, no accessory muscle use Abdominal: Soft, nontender to palpation, no guarding, no appreciable organomegaly Ext: No gross muscle atrophy, no edema b/l lower extremities, no contractures Neuro: CN II-XI grossly intact, no focal neuro deficits Psych: Lethargic, oriented, appropriate affect A total of 45 minutes of time were spent preparing this complex discharge summary. This dictation was prepared using [employer] voice recognition software. Though every attempt is made to correct errors during dictation some may still exist. Patient Condition at Discharge: Serious Plan - Discharge Summary Discharge Rx Participant: Yes New Discharge Prescriptions: No Action Warfarin [Coumadin] 2.5 mg PO DIRECTED Nelson-3/Dha/Epa/Fish Oil [Fish Oil 1,000 mg Softgel] 1,000 mg PO DAILY Lovastatin [Mevacor] 10 mg PO HS diphenhydrAMINE HCL [Benadryl] 25 mg PO HS Insulin Glargine,Hum.rec.anlog [Lantus Solostar Pen] 45 units SQ HS Tamsulosin HCl [Flomax] 0.4 mg PO HS Multivitamins, Thera [Multivitamin (formulary)] 1 tab PO DAILY Alogliptin Benzoate [Alogliptin] 6.25 mg PO HS Discharge Medication List Alogliptin Benzoate [Alogliptin] 6.25 mg PO HS 11/20/23 [History] Insulin Glargine,Hum.rec.anlog [Lantus Solostar Pen] 45 units SQ HS 11/20/23 [History] Multivitamins, Thera [Multivitamin (formulary)] 1 tab PO DAILY 11/20/23 [History] Nelson-3/Dha/Epa/Fish Oil [Fish Oil 1,000 mg Softgel] 1,000 mg PO DAILY 11/20/23 [History] Tamsulosin HCl [Flomax] 0.4 mg PO HS 11/20/23 [History] Warfarin [Coumadin] 2.5 mg PO DIRECTED 11/20/23 [History] diphenhydrAMINE HCL [Benadryl] 25 mg PO HS 11/20/23 [History] Lovastatin [Mevacor] 10 mg PO HS 02/15/24 [History] Follow up Appointment(s)/Referral(s): [facility],Clinic [Primary Care Provider] - 1-2 days
--- NOTE | 2024-03-06 14:09 | P.PN ---
Subjective Progress Note Date: 03/06/24 Principal diagnosis: Acute infective endocarditis/anterior leaflet of the mitral valve On today's evaluation of 02/22/2024, seen the patient for a follow-up. The patient is currently undergoing hemodialysis and is resting comfortably in bed while awaiting a BiPAP at a pressure of 10/5 with an FiO2 of 30%. No significant respiratory distress at this point in time. Noted the patient had staphylococcal bacteremia/MSSA and the patient is currently on IV cefazolin. Pulse ox is in the order of 94% while wearing the BiPAP. No labs are available from today. Yesterday's labs were noted. The white cell count at 13.7 with a hemoglobin of 8.1 and a platelet count of 140. The most recent chest x-ray from 02/18/2024 showed cardiomegaly and mild pulm vascular congestion. No evidence of any consolidation or airspace disease. Echocardiogram on 02/16/2024 showed left-ventricular ejection fraction of 40 to 45%, global hypokinesis, moderately decreased LV function, the aortic valve had some mild to moderate para valvular leak otherwise, no other significant valvular abnormalities noted. The patient is otherwise calm and comfortable. His comorbid conditions include end-stage renal disease on hemodialysis 3 times a week and the patient has a malfunctioning AV graft and the patient is status post angioplasty and thrombolysis of the left subclavian vein. Nephrology on the case. Vascular surgery is also on the case. Hemoglobin is stable for now and there is no evidence of any GI bleeding. The patient has been anticoagulated regarding chronic atrial fibrillation. The patient has hyperlipidemia, diabetes mellitus type 2 as comorbid conditions. The patient is post TAVR procedure with some mild to moderate aortic valvular leak. 02/23/2024, the patient is being seen for a follow-up. This patient is 78 and the patient has MSSA septicemia currently on IV cefazolin. The most recent follow-up blood cultures from [facility] on 02/20/2024 were negative. The patient sander ins hemodynamically stable. On today's blood work, there is a white cell count of 15.5 with a hemoglobin of 8 and a platelet count of 211. The sodium level is 132, BUN 77 creatinine 5.38 and a potassium level is at 3.9. INR is currently at 3.9. Patient remains on IV cefazolin. The patient is on Levemir insulin 24 units at bedtime along with NovoLog 2 units with meals + scale coverage. Remain s on Demadex 40 mg p.o. daily. Remains on Flomax. The CAT scan of the brain was done today and showed no acute abnormalities and there was some nonspecific white matter changes likely secondary to chronic small vessel ischemic disease. At the same time, a chest x-ray was repeated today and shows essentially stable findings with some calcification along the pleural surface and the right and mild pulm vessel congestion without any significant interval changes compared to the earlier chest x-ray. Respiratory status is stable. The patient is currently off the BiPAP initially at 2 L and subsequently out of her oxygen with a pulse ox of 96%. The patient is also being seen by infectious disease. TREY has been ordered. The patient is being seen by nephrology. Regarding his end-stage renal disease and the patient is undergoing hemodialysis MWF. No problems with dialysis and his last dialysis session was done yesterday. No reported shortness of breath at this point in time. His MSSA ba cteremia is still being investigated and the patient is being considered for a TREY. On today's evaluation of 02/24/2024, the patient is essentially unchanged. Calm and comfortable, resting comfortably in bed. No significant respiratory distress. He remains on oxygen on room air with a pulse ox of 95%. No cough. No sputum production. No chest tightness. No wheezing. Obese, 17.8 with a hemoglobin of 8 and a platelet count of 236. BUN is 100 and the creatinine is at 7.1 and a sodium levels at 131. The patient has end-stage renal disease and the patient undergoes hemodialysis 3 times a week and he is scheduled to undergo hemodialysis today. Afebrile. Remains on IV cefazolin. Repeated blood cultures from 03/03/2024 on 02/20/2024 were negative. On 02/25/2024, seen the patient for a follow-up. Resting comfortably in bed on room air oxygen. No respiratory distress. Last hemodialysis session was yesterday. No chest pain. No shortness of breath. Hemodynamically stable. White cell count at 17 with a hemoglobin 8.1. INR is at 3.3. BUN 67 with a creatinine of 5.25 and a potassium level of 3.9. Afebrile for now. Repeat blood cultures have been negative thus far. Patient is being seen for a follow-up. Unfortunately, the TREY that was completed today showed evidence of infective endocarditis. The patient had a large vegetation noted over the anterior mitral valve leaflet consistent with diagnosis of infective endocarditis. The patient has a bioprosthetic aortic valve also. Note that he remains quite lethargic. He is awake alert and communicating. Weakness was noted in the left upper and left lower extremity and this has evolved over the past 24 to 48 hours. Septic emboli to the brain was suspected. Based on that, CAT scan of the brain was done and showed no evidence of any acute intracranial process and there was some nonspecific white matter changes likely secondary to chronic small vessel ischemic changes. Antibiotics has been switched to nafcillin. The repeat blood cultures from 02/19/2024 and 02/20/2024 were negative. White cell count is 16.7 with a hemoglobin of 8.4 and a platelet count of 227. INR is at 4.7. BUN is 94 with a creatinine of 7.05 and sodium is at 130 with a potassium level of 5.0. Consultation was placed for cardiothoracic surgery regarding the endocarditis. The patient undergoes hemodialysis 3 times a week. No significant shortness of breath. This morning, he was on room air with a pulse ox of 99%. No hypotension. No cardiac arrhythmias noted. 02/27/2024, the patient is being seen for a follow-up. He is currently on room air oxygen. Resting comfortably in bed. Considerable weakness in the left upper and left lower extremity. Remains on IV nafcillin. The patient is clinically and hemodynamically stable. As mentioned, the patient had a large vegetation involving the anterior mitral leaflet and a TREY it was done on 02/26/2024. CAT scan of the brain showed no acute abnormalities. The patient denies having any shortness of breath. No chest pain. He remains on anticoagulation with warfarin and the PT/INR is supratherapeutic and this is being managed by the medical team. No other significant issues otherwise. No skin rashes. No hematuria. Very much weak and debilitated. 02/28/2024, patient is being seen for a follow-up. Yet arousable. Follows simple commands. Left-sided weakness is obvious. MRI of the brain was also done and showed no evidence bilateral numerous peripheral and deep punctate diffusion hyperintensities correlating with c his history of infective endocarditis and ischemic changes related to septic embolism. Hemodynamically stable on IV nafcillin. Remains anticoagulated with warfarin. Remains on Demadex. No respiratory distress. Remains on room air oxygen. Afebrile. Blood cultures are negative. WBC is at 12.7 with a hemoglobin 8.6, INR is at 3.0, sodium is at 127, BUN 75 with a creatinine of 6.1. Patient was seen by nephrology. The plan is to undergo dialysis on Thursday. In terms of the atrial fibrillation, rate is controlled and the patient is on Lopressor for rate control and the patient is also on anticoagulation with warfarin. On 02/29/2024, the patient is clinically unchanged. He is following commands and answering questions. Nevertheless, his response is quite delayed. He does have septic emboli to the brain and the patient has mitral valve endocarditis and the patient remains on the nafcillin. Other complaints otherwise for now. Nephrology on the case and the patient is undergoing scheduled dialysis. He remains on torsemide. He is on PhosLo. Blood work shows a white cell count of 14, hemoglobin 8.3 and a platelet count of 209. INR is at 2.2. BUN is at 90 7.2. Sodium is 125 and a Potassium Level Is at 5.1. Patient Is Undergoing Hemodialysis MWF. No Shortness of Breath. No Cardiac Arrhythmias. Repeat Blood Cultures Were Negative. Remains on IV Nafcillin. Cardiothoracic Surgery Is on the Case. Patient was evaluated today on 03/01/2024, patient is now being treated for infective endocarditis of the mitral valve, Staph aureus sepsis, bacteremia, left-sided weakness with altered mental status. Patient had history of aortic valve stenosis and previous TAVR placement at the [facility] 07/27, patient is also known to have end-stage renal disease on hemodialysis and he has COPD and obstructive sleep apnea syndrome. Patient seems to be comfortable, he is being considered for mitral valve replacement in the future, and he is also being considered for cardiac catheterization to evaluate coronary artery disease prior. Patient is clearly a high surgical risk. WBC count today is 11 hemoglobin is 7.5 INR 1.8 sodium 127 BUN is 50 creatinine 4.97. Chest x-ray from a week ago showed mostly pulmonary vascular congestion and congestive heart failure. There was also evidence of calcification of the pleura suggestive of prior asbestos exposure. Patient was evaluated today on 03/02/2024, patient is resting in bed, is at bedside, he is on BiPAP still receiving treatment for infective endocarditis, apparently the has been in contact with the [facility], and she is clearly aware of the poor condition and the prognosis at this point, she did contact apparently the nurse practitioner at the [facility] regarding his condition, considering the patient had TAVR surgery back in August of 2023. definitely would like to have surgical intervention to be done if any at the [facility]. Meantime the patient is receiving antibiotics for his infective endocarditis.And he will eventually need transfer to a rehab facility before any surgical intervention to be considered WBC count today is 11.1 hemoglobin 7.5 INR is 1.8 sodium 127 potassium 4.9 BUN is 67 creatinine 6.68, patient remains on hemodialysis Thursday and Thursday. Patient was reevaluated today on 03/03/24, basically the patient is about the same, remains on BiPAP, he is on 07/09/30%, continues to have left-sided weakness related to his CVA. Does not seem to be in any distress, remains on antibiotics for his underlying endocarditis, arrangement for rehab is in progress, Patient was reevaluated today on 03/04/24, on 2 L nasal cannula, O2 saturation 97%, however the patient had recent episode of atrial fibrillation with RVR, cardiology was reconsulted, I found out today that cardiology has signed off his case, the meantime the patient is receiving antibiotics for his endocarditis, and the overall prognostic picture seems to be extremely poor and guarded. Apparently family is considering rehab somewhere near [facility] but that is in progress pulmonary graham the patient is intermittently on BiPAP, does not seem to be in distress when I saw him today. WBC count is normal at 9.3. Sodium is 129 potassium 4.3 BUN is 56 creatinine 6.04 patient has MSSA bacteremia, still receiving antibiotics as per infectious disease. And has been on nafcillin Patient was evaluated today on 03/05/2024, basically he is about the same hemodynamically stable, he is on nasal cannula at present at 2 L, does not seem to be in any distress, intermittently on BiPAP. Mentation graham, the patient seems to be slow, he did have acute multiple small multifocal areas of ischemic infarcts on the MRI. This was felt to be related to septic emboli from bacterial endocarditis. Patient remains on antibiotics/nafcillin, being addressed by infectious disease on the case. Eventually the patient may require surgical intervention however he is extremely high surgical risk, and this may have to be done at the [facility] according to the who prefers to do so. ABG today showed on 40% showed a pO2 of 129 pCO2 44 pH of 7.46 Patient was evaluated today on 03/06/2024, patient is doing fairly well, basically about the same, being treated for endocarditis, patient was accepted apparently at the [facility], and discharge planning is in progress. Pulmonary graham no active pulmonary issues, remains on nasal cannula at 2 L/min, and sometimes on BiPAP, no cough no wheezing no shortness of breath no fever no chills no hemoptysis.WBC count is 12.7 hemoglobin 7.3 basic metabolic profile is normal BUN is 37 creatinine 4.37 Objective - Vital Signs Vital signs: Vital Signs Temp 98.5 F 03/06/24 12:00 Pulse 71 03/06/24 13:56 Resp 20 03/06/24 13:56 BP 138/81 03/06/24 12:00 Pulse Ox 99 03/06/24 12:00 FiO2 28 03/06/24 12:00 Intake & Output 03/05/24 03/06/24 03/06/24 18:59 06:59 18:59 Intake Total 400 240 Output Total 2900 Balance -2500 240 Weight 98.1 kg Intake: Oral 0 240 Hemodialysis 400 Output: Urine 0 Hemodialysis 2900 Other: Voiding Method External Catheter External Catheter External Catheter - Exam CONSTITUTIONAL: Appears comfortable, cooperative, no acute distress, on 2 L nasal cannula RESPIRATORY: Clear bilaterally no rhonchi no wheezes CARDIOVASCULAR: S1, S2 present, systolic murmur present. Irregular rate and rhythm, controlled atrial fibrillation on telemetry. Palpable peripheral pulses bilaterally. No edema present. No calf pain or tenderness noted GASTROINTESTINAL: Abdomen soft, nontender, nondistended. Active bowel sounds present 4 quadrants. INTEGUMENTARY: Skin is warm and dry with evidence of good perfusion NEUROLOGIC: Cranial nerves II through XII intact, slow to respond but is completely oriented and following commands patient has mostly left-sided weakness related to his CVA MUSKULOSKELETAL: Able to move all extremities, generalized weakness present, left greater than right PSYCHIATRIC: Alert and oriented to person place and time - Labs CBC & Chem 7: 03/06/24 07:54 03/06/24 07:54 Labs: Abnormal Lab Results - Last 24 Hours (Table) 03/05/24 03/05/24 03/05/24 Range/Units 16:26 20:39 23:55 WBC (3.8-10.6) k/uL RBC (4.30-5.90) m/uL Hgb (13.0-17.5) gm/dL Hct (39.0-53.0) % RDW (11.5-15.5) % PT (10.0-12.5) sec INR (<1.2) Sodium (137-145) mmol/L Chloride (98-107) mmol/L BUN (9-20) mg/dL Creatinine (0.66-1.25) mg/dL Glucose (74-99) mg/dL POC Glucose (mg/dL) 229 H 212 H 111 H (70-110) mg/dL Calcium (8.4-10.2) mg/dL Total Bilirubin (0.2-1.3) mg/dL Total Protein (6.3-8.2) g/dL Albumin (3.5-5.0) g/dL HDL Cholesterol (40.00-60.00) mg/dL 03/06/24 03/06/24 03/06/24 Range/Units 06:02 06:02 06:29 WBC (3.8-10.6) k/uL RBC (4.30-5.90) m/uL Hgb (13.0-17.5) gm/dL Hct (39.0-53.0) % RDW (11.5-15.5) % PT 17.0 H (10.0-12.5) sec INR 1.7 H (<1.2) Sodium (137-145) mmol/L Chloride (98-107) mmol/L BUN (9-20) mg/dL Creatinine (0.66-1.25) mg/dL Glucose (74-99) mg/dL POC Glucose (mg/dL) 158 H (70-110) mg/dL Calcium (8.4-10.2) mg/dL Total Bilirubin (0.2-1.3) mg/dL Total Protein (6.3-8.2) g/dL Albumin (3.5-5.0) g/dL HDL Cholesterol 39.60 L (40.00-60.00) mg/dL 03/06/24 03/06/24 03/06/24 Range/Units 07:06 07:54 07:54 WBC 12.7 H (3.8-10.6) k/uL RBC 2.37 L (4.30-5.90) m/uL Hgb 7.3 L (13.0-17.5) gm/dL Hct 23.4 L (39.0-53.0) % RDW 15.9 H (11.5-15.5) % PT (10.0-12.5) sec INR (<1.2) Sodium 132 L (137-145) mmol/L Chloride 96 L (98-107) mmol/L BUN 37 H (9-20) mg/dL Creatinine 4.37 H (0.66-1.25) mg/dL Glucose 155 H (74-99) mg/dL POC Glucose (mg/dL) 150 H (70-110) mg/dL Calcium 7.8 L (8.4-10.2) mg/dL Total Bilirubin 1.7 H (0.2-1.3) mg/dL Total Protein 5.9 L (6.3-8.2) g/dL Albumin 2.9 L (3.5-5.0) g/dL HDL Cholesterol (40.00-60.00) mg/dL 03/06/24 Range/Units 12:11 WBC (3.8-10.6) k/uL RBC (4.30-5.90) m/uL Hgb (13.0-17.5) gm/dL Hct (39.0-53.0) % RDW (11.5-15.5) % PT (10.0-12.5) sec INR (<1.2) Sodium (137-145) mmol/L Chloride (98-107) mmol/L BUN (9-20) mg/dL Creatinine (0.66-1.25) mg/dL Glucose (74-99) mg/dL POC Glucose (mg/dL) 259 H (70-110) mg/dL Calcium (8.4-10.2) mg/dL Total Bilirubin (0.2-1.3) mg/dL Total Protein (6.3-8.2) g/dL Albumin (3.5-5.0) g/dL HDL Cholesterol (40.00-60.00) mg/dL Assessment and Plan Assessment: Impression: Acute infective endocarditis involving the anterior leaflet of the mitral valve Staph aureus bacteremia and sepsis Acute CVA/secondary to septic emboli from endocarditis with abnormal MRI of the brain Anemia of chronic disease End-stage renal disease, on hemodialysis History of underlying COPD Obstructive sleep apnea syndrome, on BiPAP Ex-smoker Recommendation: Patient was accepted at the [facility] and transfer plans are in progress. Continue antibiotics/nafcillin Continue hemodialysis, Thursday Continue bronchodilators/DuoNeb Will follow as needed Time with Patient: Less than 30
[2024-03-06 16:31] LABS: Glucose,Whole Blood 200 mg/dL (70-110)
[2024-03-06] MEDS: WARFARIN 2 MG TAB PO ONE (16:58)
[2024-03-06 20:12] LABS: Glucose,Whole Blood 246 mg/dL (70-110)
[2024-03-07 06:14] LABS: Glucose,Whole Blood 75 mg/dL (70-110)
[2024-03-07 08:47] LABS: Anisocytosis Slight; Basophils # (A) 0.1 k/uL (0-0.2); Basophils % (A) 1 %; Eosinophils # (A) 0.2 k/uL (0-0.7); Eosinophils % (A) 2 %; HGB 7.3 gm/dL (13.0-17.5); Hypochromasia Slight; Lymphocytes # (A) 0.7 k/uL (1.0-4.8); Lymphocytes % (A) 7 %; MCH 31.5 pg (25.0-35.0); MCHC 31.6 g/dL (31.0-37.0); MCV 99.7 fL (80.0-100.0); Macrocytosis Slight; Mean Platelet Volume 8.3; Monocytes # (A) 0.5 k/uL (0-1.0); Monocytes % (A) 5 %; Neutrophils # (A) 8.4 k/uL (1.3-7.7); Neutrophils % (A) 84 %; Platelet Count 220 k/uL (150-450); RBC 2.31 m/uL (4.30-5.90); RDW 16.3 % (11.5-15.5); WBC 10.1 k/uL (3.8-10.6)
[2024-03-07 08:49] LABS: African American GFR (CKD) 10 (>60 ml/min/1.73 sqM); Anion Gap 9 mmol/L; Blood Urea Nitrogen 55 mg/dL (9-20); Calcium 7.9 mg/dL (8.4-10.2); Carbon Dioxide 27 mmol/L (22-30); Chloride 94 mmol/L (98-107); Glucose 91 mg/dL (74-99); Non-African American GFR(CKD) 9 (>60 ml/min/1.73 sqM); Potassium 4.1 mmol/L (3.5-5.1); Sodium 130 mmol/L (137-145)
[2024-03-07 09:12] LABS: INR 1.7 (<1.2); Prothrombin Time 16.9 sec (10.0-12.5)
--- NOTE | 2024-03-07 10:37 | P.PN ---
Subjective Patient is seen in follow-up for end-stage renal disease. He is maintained on hemodialysis on Thursday schedule. No chest pain or shortness of breath. Hemodynamically stable. Tolerated 2-1/2 L ultrafiltration yesterday. Vital signs are stable. General: No acute distress. HEENT: Head exam is unremarkable. On nasal cannula. LUNGS: No audible rhonchi or wheezes. HEART: Rate and Rhythm are regular. ABDOMEN: Nontender. EXTREMITITES: No edema. Objective - Vital Signs Vital signs: Vital Signs Temp 98.1 F 03/07/24 00:00 Pulse 83 03/07/24 04:00 Resp 18 03/07/24 04:00 BP 159/82 03/07/24 04:00 Pulse Ox 100 03/07/24 04:00 FiO2 28 03/06/24 23:54 Intake & Output 03/06/24 03/07/24 03/07/24 18:59 06:59 18:59 Intake Total 240 496 Output Total 50 0 Balance 190 0 496 Weight 101.4 kg Intake: Oral 240 496 Output: Urine 50 Stool 0 Other: Voiding Method External Catheter External Catheter # Bowel Movements 1 - Labs CBC & Chem 7: 03/07/24 07:49 03/07/24 07:49 Labs: Abnormal Lab Results - Last 24 Hours (Table) 03/06/24 03/06/24 03/06/24 Range/Units 06:02 12:11 16:29 RBC (4.30-5.90) m/uL Hgb (13.0-17.5) gm/dL Hct (39.0-53.0) % RDW (11.5-15.5) % Neutrophils # (1.3-7.7) k/uL Lymphocytes # (1.0-4.8) k/uL PT (10.0-12.5) sec INR (<1.2) Sodium (137-145) mmol/L Chloride (98-107) mmol/L BUN (9-20) mg/dL Creatinine (0.66-1.25) mg/dL POC Glucose (mg/dL) 259 H 200 H (70-110) mg/dL Calcium (8.4-10.2) mg/dL HDL Cholesterol 39.60 L (40.00-60.00) mg/dL 03/06/24 03/07/24 03/07/24 Range/Units 20:11 07:49 07:49 RBC 2.31 L (4.30-5.90) m/uL Hgb 7.3 L (13.0-17.5) gm/dL Hct 23.0 L (39.0-53.0) % RDW 16.3 H (11.5-15.5) % Neutrophils # 8.4 H (1.3-7.7) k/uL Lymphocytes # 0.7 L (1.0-4.8) k/uL PT 16.9 H (10.0-12.5) sec INR 1.7 H (<1.2) Sodium (137-145) mmol/L Chloride (98-107) mmol/L BUN (9-20) mg/dL Creatinine (0.66-1.25) mg/dL POC Glucose (mg/dL) 246 H (70-110) mg/dL Calcium (8.4-10.2) mg/dL HDL Cholesterol (40.00-60.00) mg/dL 03/07/24 Range/Units 07:49 RBC (4.30-5.90) m/uL Hgb (13.0-17.5) gm/dL Hct (39.0-53.0) % RDW (11.5-15.5) % Neutrophils # (1.3-7.7) k/uL Lymphocytes # (1.0-4.8) k/uL PT (10.0-12.5) sec INR (<1.2) Sodium 130 L (137-145) mmol/L Chloride 94 L (98-107) mmol/L BUN 55 H (9-20) mg/dL Creatinine 5.86 H (0.66-1.25) mg/dL POC Glucose (mg/dL) (70-110) mg/dL Calcium 7.9 L (8.4-10.2) mg/dL HDL Cholesterol (40.00-60.00) mg/dL Assessment and Plan Plan: Assessment: 1. End-stage renal disease maintained on hemodialysis on Thursday schedule. 2. A-fib with RVR status post Cardizem drip. On Lopressor. 3. Diabetes mellitus. 4. MSSA bacteremia on antibiotics. ID following. TREY showed a large vegetation on the mitral valve. CTS following. Septic emboli noted on MRI. No surgical intervention planned at this time due to being high risk. Awaits transfer to tertiary care facility. 5. Hyperphosphatemia secondary to chronic kidney disease. Phosphorus level 7.2 dated February 23, 2024. On PhosLo. 6. Anemia of chronic kidney disease. On Aranesp. 7. Hyponatremia secondary to chronic kidney disease. Hypervolemic. Improvement postdialysis. Plan: Hemodialysis today and again tomorrow. Maintain torsemide. Awaits transfer to tertiary care facility for potential surgical intervention of cardiac vegetation.
[2024-03-07 11:27] LABS: Glucose,Whole Blood 212 mg/dL (70-110)
--- NOTE | 2024-03-07 13:25 | P.PN ---
Subjective Progress Note Date: 03/07/24 Subjective: Patient seen and examined at bedside. No acute events overnight. No new complaints Pertinent positives and negatives as discussed above, a complete review of systems was performed and all other systems are negative. Vitals Signs Reviewed. General: Nontoxic, chronically ill-appearing, mild distress, appears at stated age Cardiovascular: S1S2 reg, systolic murmur Lungs: Coarse breath sounds bilaterally, no rhonchi, no rales, no accessory muscle use Abdominal: Soft, nontender to palpation, no guarding Ext: No gross muscle atrophy, trace edema b/l lower extremities, no contractures Psych: Alert, oriented, appropriate affect Data Reviewed Today: Pertinent Labs: WBC 10.1, hemoglobin 7.3, INR 1.7, sodium 130, creatinine 5.86, blood sugars range between 75-2 46 Imaging: No new imaging Assessment and Plan: MSSA bacteremia with sepsis Infective endocarditis of the mitral valve Acute toxic metabolic encephalopathy secondary to acute ischemia from septic emboli -Nafcillin 2 g IV piggyback every 4 hours day #12 (prior to that patient had treatment with vancomycin and cefepime and cefazolin for total of an additional 10 days) -Repeat blood cultures negative since 02/18 -CT surgery evaluated patient, high risk for any intervention -Patient pending transfer to [facility] -PICC line in place -Infectious disease, recommending continued antibiotics -Discussed management with neurology, continue current care End-stage renal disease Malfunction of the AV graft Status post angioplasty and thrombolysis -Nephrology note reviewed: Continue with hemodialysis on Thursday/Thursday/Thursday -Vascular surgery signed off Acute exacerbation of systolic heart failure with an EF of 40-45% Atrial fibrillation with RVR Type II non-ST elevation [place], Likely due to sepsis History of TAVR - diuresis managed with HD -Metoprolol 75 mg twice daily -Torsemide 40 mg daily -Lipitor 10 mg at night -Patient takes midodrine as needed before dialysis Diabetes mellitus type 2 - Levemir to 20 units at night, NovoLog to 4 units with lunch and dinner, 2 units of NovoLog in the morning with breakfast, continue with sliding scale insulin, monitor for hypoglycemia - orals on hold Melena with possible lower GI bleed, Resolved. Has been restarted on coumadin Thrombocytopenia likely due to sepsis, resolved DVT ppx: Coumadin Code status: Full code Anticipated discharge place: [facility] Anticipated discharge time: Pending bed availability Objective - Vital Signs Vital signs: Vital Signs Temp 96.9 F L 03/07/24 08:00 Pulse 81 03/07/24 08:00 Resp 18 03/07/24 08:00 BP 156/69 03/07/24 08:00 Pulse Ox 98 03/07/24 08:00 FiO2 28 03/06/24 23:54 Intake & Output 03/06/24 03/07/24 03/07/24 18:59 06:59 18:59 Intake Total 240 496 Output Total 50 0 Balance 190 0 496 Weight 101.4 kg Intake: Oral 240 496 Output: Urine 50 Stool 0 Other: Voiding Method External Catheter External Catheter External Catheter # Bowel Movements 1 - Labs CBC & Chem 7: 03/07/24 07:49 03/07/24 07:49 Labs: Abnormal Lab Results - Last 24 Hours (Table) 03/06/24 03/06/24 03/07/24 Range/Units 16:29 20:11 07:49 RBC (4.30-5.90) m/uL Hgb (13.0-17.5) gm/dL Hct (39.0-53.0) % RDW (11.5-15.5) % Neutrophils # (1.3-7.7) k/uL Lymphocytes # (1.0-4.8) k/uL PT 16.9 H (10.0-12.5) sec INR 1.7 H (<1.2) Sodium (137-145) mmol/L Chloride (98-107) mmol/L BUN (9-20) mg/dL Creatinine (0.66-1.25) mg/dL POC Glucose (mg/dL) 200 H 246 H (70-110) mg/dL Calcium (8.4-10.2) mg/dL 03/07/24 03/07/24 03/07/24 Range/Units 07:49 07:49 11:25 RBC 2.31 L (4.30-5.90) m/uL Hgb 7.3 L (13.0-17.5) gm/dL Hct 23.0 L (39.0-53.0) % RDW 16.3 H (11.5-15.5) % Neutrophils # 8.4 H (1.3-7.7) k/uL Lymphocytes # 0.7 L (1.0-4.8) k/uL PT (10.0-12.5) sec INR (<1.2) Sodium 130 L (137-145) mmol/L Chloride 94 L (98-107) mmol/L BUN 55 H (9-20) mg/dL Creatinine 5.86 H (0.66-1.25) mg/dL POC Glucose (mg/dL) 212 H (70-110) mg/dL Calcium 7.9 L (8.4-10.2) mg/dL Microbiology - Last 24 Hours (Table) 03/06/24 06:02 Blood Culture - Preliminary Blood
--- NOTE | 2024-03-07 14:13 | P.PN ---
Subjective Progress Note Date: 03/07/24 Principal diagnosis: Shortness of breath. Patient is a 78-year-old male with past medical history significant for atrial fibrillation anticoagulated on Coumadin, previous TAVR, hyperlipidemia, diabetes mellitus, end-stage renal disease receiving hemodialysis (Thursday, Thursday, Thursday schedule), obstructive sleep apnea with home BiPAP. Patient is technically a poor historian. Prior to coming in, patient was noted to be severely weak and somewhat confused by his . He did reportedly have a assisted fall from bed earlier in the week. I believe he was briefly evaluated by [facility]. Thursday, the patient was reportedly at the hemodialysis center. He was noted to have an elevated heart rate. Hemodialysis was terminated. Subsequently, he was brought into the emergency room for further evaluation on 02/15/2024. Heart rhythm on arrival was atrial fibrillation with rapid ventricular rate of 157 bpm. He was originally started on a Cardizem infusion which is currently off. He was also noted to be febrile. While in the emergency room, his left upper extremity AV graft was noted to be malfunctioning. Yesterday, 02/16/2024, he did undergo a left upper extremity fistulogram with ultrasound-guided access, percutaneous transluminal balloon angioplasty of the left subclavian vein, and thrombolysis at the proximal aspect of the graft. During the procedure, he developed some respiratory distress. He did receive 60 mg of IV Lasix. Patient reportedly still produces limited amounts of urine. Chest x-ray during these events showed worsening bilateral interstitial infiltrates concerning for interstitial edema versus atypical pneumonia. Negative for influenza, RSV, COVID. Considering patient's clinical presentation, favoring fluid overload. Patient was then transferred to the intensive care unit on BiPAP support with pressure settings of 10/5 and FiO2 of 60%. ABGs done on the settings included a PaO2 of 94, pCO2 of 42, pH of 7.39. FiO2 was then weaned down to 40%. It appears they were able to get his AV graft working, and patient just received stat hemodialysis. A total of 950 mL was removed. During hemodialysis, patient became hypotensive requiring the initiation of low-dose norepinephrine which is infusing at 0.03 mcg/kg/min. He art rhythm remains atrial fibrillation, but now with a controlled ventricular response. He is currently lying in bed, on 2 L/min nasal cannula, in no acute distress. SpO2 is 98%. BiPAP is on standby. He is oriented x 3, but a poor historian. His short-term memory of events leading to his hospitalization are limited. no focal deficits. He denies any specific complaints. Shortness of breath is reportedly improved. Denies cough, sputum production, chest pain. Denies any heart palpitations or lower extremity swelling. Denies nausea, vomiting, diarrhea, abdominal pain. Patient was having frequent small amounts of urination at home. Otherwise no urinary complaints. No observable wounds. Preliminary blood cultures show gram-positive cocci in clusters. He is covered on pharmacy to dose vancomycin. Also, empirically started on cefepime. Most recent CBC from yesterday includes a WBC count of 17.4, hemoglobin 9.8, hematocrit 29.4, platelets 92. No overt signs of bleeding noted. INR 2.2 on arrival. Chronically anticoagulated on warfarin. BMP from yesterday includes: Sodium 136, potassium 3.5, chloride 101, serum bicarb 26, BUN 87, creatinine 4.79, glucose 213. Urinalysis not concerning for UTI. Lactic acid level was 2.6 down to 1.3. Troponins also elevated at 0.171, 0.203, and 0.26 respectively. Possibly supply/demand mismatch and in the setting of renal failure. Initial EKG showed A-fib RVR with a left bundle branch block, rate was noted at 157 bpm. Patient has had follow-up echocardiogram which estimated a moderately impaired left ventricular systolic function 40 to 45%, TAVR valve noted with mild to moderate perivalvular regurgitation. Patient is being m onitored closely in intensive care unit. Progress note dated February 18, 2024. This is a 78-year-old male that we actually initially brought down into the intensive care unit, because of impending respiratory failure, from missed hemodialysis, secondary to a clotted AV fistula. Anyway, the patient was seen by vascular surgery, and the AV fistula was made to be functional, the patient did receive emergent hemodialysis, which prevented or precluded intubation and mechanical ventilation. The patient is seen today in room 361. He is on saline at 10 cc an hour, and nasal O2 at 2 L. He says he did use the BiPAP last night, with settings of 10/5 and 30%. His respiratory status is much improved. Current labs include a white count 12.5, hemoglobin 9.3, hematocrit 28.7, and a platelet count of 106,000. PT 16.8 INR 1.6. Sodium 132, potassium 3.7, chloride 98, CO2 26, BUN 58, creatinine 3.57. Calcium is 7.6. Blood cultures are showing presumptive Staph aureus. Chest x-ray, compared to the one the day before, shows significant improvement. Progress note dated February 19, 2024. 78-year-old male seen in room 366. Patient is doing well. He is currently on 3 L of oxygen. He is not receiving any IV fluids. Clinically, his respiratory status is stable. He continues on Ancef. The rest of his medications are reviewed. Laboratory data includes a white count of 12.4, hemoglobin 8.9, hem atocrit 27.4, and platelet count of 94,000. PT 20.5, INR 2.0. Sodium 132, potassium 3.7, chlorides 98, CO2 24, BUN 84, creatinine 4.74. Glucose is 66. Calcium is 7.7. Blood cultures were positive for oxacillin sensitive Staph aureus. Chest x-ray from February 17 shows evidence of cardiomegaly, and mild pulmonary vascular congestion. Progress note dated February 20, 2024. 78-year-old male seen today in room 366. Currently, the patient is on O2 at 2 L by nasal cannula. The patient is getting saline at 10 cc an hour. The patient did use BiPAP last night, with settings of 10/5, and 30%. Clinically, the patient is doing much better. Current labs include a white count 12.9, hemoglobin 8.4, hematocrit 25.5, and a platelet count of 116,000. PT is 28.2, and INR is 2.9. Sodium 133, potassium 3.6, chlorides 96, CO2 29, BUN 63, and creatinine 4.11. Glucose is 153. Calcium is 7.4. Cultures were positive for Staphylococcus aureus. Patient continues on Ancef. Progress note dated February 21, 2024. 78-year-old male seen today in room 366. Currently, the patient is on oxygen at 2 L by nasal cannula. His saturations are 98%. The patient is not receiving any IV fluids today. The patient has been using BiPAP, intermittently, with settings of 10/5, and 30%. Clinically, the patient appears much improved. The patient spent a short period of time in the intensive care unit, with fluid over load, requiring emergent dialysis. White count is 13.7, hemoglobin 8.1, hematocrit 25.3, and platelet count is 140,000. PT 32.6 INR 3.3. Sodium 132, potassium 3.9, chlorides 95, CO2 27 anion gap 10, BUN 88, creatinine 5.57. Calcium is 7.3. Glucose is 175. On today's evaluation of 02/22/2024, seen the patient for a follow-up. The patient is currently undergoing hemodialysis and is resting comfortably in bed while awaiting a BiPAP at a pressure of 10/5 with an FiO2 of 30%. No significant respiratory distress at this point in time. Noted the patient had staphylococcal bacteremia/MSSA and the patient is currently on IV cefazolin. Pulse ox is in the order of 94% while wearing the BiPAP. No labs are available from today. Yesterday's labs were noted. The white cell count at 13.7 with a hemoglobin of 8.1 and a platelet count of 140. The most recent chest x-ray from 02/18/2024 showed cardiomegaly and mild pulm vascular congestion. No evidence of any consolidation or airspace disease. Echocardiogram on 02/16/2024 showed left- ventricular ejection fraction of 40 to 45%, global hypokinesis, moderately decreased LV function, the aortic valve had some mild to moderate para valvular leak otherwise, no other significant valvular abnormalities noted. The patient is otherwise calm and comfortable. His comorbid conditions include end-stage renal disease on hemodialysis 3 times a week and the patient has a malfunctioning AV graft and the patient is status post angioplasty and throm bolysis of the left subclavian vein. Nephrology on the case. Vascular surgery is also on the case. Hemoglobin is stable for now and there is no evidence of any GI bleeding. The patient has been anticoagulated regarding chronic atrial fibrillation. The patient has hyperlipidemia, diabetes mellitus type 2 as comorbid conditions. The patient is post TAVR procedure with some mild to moderate aortic valvular leak. 02/23/2024, the patient is being seen for a follow-up. This patient is 78 and th e patient has MSSA septicemia currently on IV cefazolin. The most recent follow-up blood cultures from [facility] on 02/20/2024 were negative. The patient remains hemodynamically stable. On today's blood work, there is a white cell count of 15.5 with a hemoglobin of 8 and a platelet count of 211. The sodium level is 132, BUN 77 creatinine 5.38 and a potassium level is at 3.9. INR is currently at 3.9. Patient remains on IV cefazolin. The patient is on Levemir insulin 24 units at bedtime along with NovoLog 2 units with meals + scale coverage. Remains on Demadex 40 mg p.o. daily. Remains on Flomax. The CAT scan of the brain was done today and showed no acute abnormalities and there was some nonspecific white matter changes likely secondary to chronic small vessel ischemic disease. At the same time, a chest x-ray was repeated today and shows essentially stable findings with some calcification along the pleural surface and the right and mild pulm vessel congestion without any significant interval changes compared to the earlier chest x-ray. Respiratory status is stable. The patient is currently off the BiPAP initially at 2 L and subsequently out of her oxygen with a pulse ox of 96%. The patient is also being seen by infectious disease. TREY has been ordered. The patient is being seen by nephrology. Regarding his end-stage renal disease and the patient is undergoing hemodialysis MWF. No problems with dialysis and his last dialysis session was done yesterday. No reported shortness of breath at this point in time. His MSSA bacteremia is still being investigated and the patient is being considered for a TREY. On today's evaluation of 02/24/2024, the patient is essentially unchanged. Calm and comfortable, resting comfortably in bed. No significant respiratory distress. He remains on oxygen on room air with a pulse ox of 95%. No cough. No sputum production. No chest tightness. No wheezing. Obese, 17.8 with a hemoglobin of 8 and a platelet count of 236. BUN is 100 and the creatinine is at 7.1 and a sodium levels at 131. The patient has end-stage renal disease and the patient undergoes hemodialysis 3 times a week and he is scheduled to undergo hemodialysis today. Afebrile. Remains on IV cefazolin. Repeated blood cultures from 03/03/2024 on 02/20/2024 were negative. On 02/25/2024, seen the patient for a follow-up. Resting comfortably in bed on room air oxygen. No respiratory distress. Last hemodialysis session was yesterday. No chest pain. No shortness of breath. Hemodynamically stable. White cell count at 17 with a hemoglobin 8.1. INR is at 3.3. BUN 67 with a creatinine of 5.25 and a potassium level of 3.9. Afebrile for now. Repeat bl ood cultures have been negative thus far. Patient is being seen for a follow-up. Unfortunately, the TREY that was completed today showed evidence of infective endocarditis. The patient had a large vegetation noted over the anterior mitral valve leaflet consistent with diagnosis of infective endocarditis. The patient has a bioprosthetic aortic valve also. Note that he remains quite lethargic. He is awake alert and communicating. Weakness was noted in the left upper and left lower extremity and this has evolved over the past 24 to 48 hours. Septic emboli to the brain was suspected. Based on that, CAT scan of the brain was done and showed no evidence of any acute intracranial process and there was some nonspecific white matter changes likely secondary to chronic small vessel ischemic changes. Antibiotics has been switched to nafcillin. The repeat blood cultures from 02/19/2024 and 02/20/2024 were negative. White cell count is 16.7 with a hemoglobin of 8.4 and a platelet count of 227. INR is at 4.7. BUN is 94 with a creatinine of 7.05 and sodium is at 130 with a potassium level of 5.0. Consultation was placed for cardiothoracic surgery regarding the endocarditis. The patient undergoes hemodialysis 3 times a week. No significant shortness of breath. This morning, he was on room air with a pulse ox of 99%. No hypotension. No cardiac arrhythmias noted. 02/27/2024, the patient is being seen for a follow-up. He is currently on room air oxygen. Resting comfortably in bed. Considerable weakness in the left upper and left lower extremity. Remains on IV nafcillin. The patient is clinically and hemodynamically stable. As mentioned, the patient had a large vegetation involving the anterior mitral leaflet and a TREY it was done on 02/26/2024. CAT scan of the brain showed no acute abnormalities. The patient denies having any shortness of breath. No chest pain. He remains on anticoagulation with warfarin and the PT/INR is supratherapeutic and this is being managed by the medical team. No other significant issues otherwise. No skin rashes. No hematuria. Very much weak and debilitated. 02/28/2024, patient is being seen for a follow-up. Yet arousable. Follows simple commands. Left-sided weakness is obvious. MRI of the brain was also done and showed no evidence bilateral numerous peripheral and deep punctate diffusion hyperintensities correlating with c his history of infective endocarditis and ischemic changes related to septic embolism. Hemodynamically stable on IV nafcillin. Remains anticoagulated with warfarin. Remains on Demadex. No respiratory distress. Remains on room air oxygen. Afebrile. Blood cultures are negative. WBC is at 12.7 with a hemoglobin 8.6, INR is at 3.0, sodium is at 127, BUN 75 with a creatinine of 6.1. Patient was seen by nephrology. The plan is to undergo dialysis on Thursday. In terms of the atrial fibrillation, rate is controlled and the patient is on Lopressor for rate control and the patient is also on anticoagulation with warfarin. On 02/29/2024, the patient is clinically unchanged. He is following commands and answering questions. Nevertheless, his response is quite delayed. He does have septic emboli to the brain and the patient has mitral valve endocarditis and the patient remains on the nafcillin. Other complaints otherwise for now. Nephrology on the case and the patient is undergoing scheduled dialysis. He remains on torsemide. He is on PhosLo. Blood work shows a white cell count of 14, hemoglobin 8.3 and a platelet count of 209. INR is at 2.2. BUN is at 90 7.2. Sodium is 125 and a Potassium Level Is at 5.1. Patient Is Undergoing Hemodialysis MWF. No Shortness of Breath. No Cardiac Arrhythmias. Repeat Blood Cultures Were Negative. Remains on IV Nafcillin. Cardiothoracic Surgery Is on the Case. Patient was evaluated today on 03/01/2024, patient is now being treated for infective endocarditis of the mitral valve, Staph aureus sepsis, bacteremia, left-sided weakness with altered mental status. Patient had history of aortic valve stenosis and previous TAVR placement at the [facility] 07/27, patient is also known to have end-stage renal disease on hemodialysis and he has COPD and obstructive sleep apnea syndrome. Patient seems to be comfortable, he is being considered for mitral valve replacement in the future, and he is also being considered for cardiac catheterization to evaluate coronary artery disease prior. Patient is clearly a high surgical risk. WBC count today is 11 hemoglobin is 7.5 INR 1.8 sodium 127 BUN is 50 creatinine 4.97. Chest x-ray from a week ago showed mostly pulmonary vascular congestion and congestive heart failure. There was also evidence of calcification of the pleura suggestive of prior asbestos exposure. Patient was evaluated today on 03/02/2024, patient is resting in bed, is at bedside, he is on BiPAP still receiving treatment for infective endocarditis, apparently the has been in contact with the [facility], and she is clearly aware of the poor condition and the prognosis at this point, she did contact apparently the nurse practitioner at the [facility] rega rding his condition, considering the patient had TAVR surgery back in August of 2023. definitely would like to have surgical intervention to be done if any at the [facility]. Meantime the patient is receiving antibiotics for his infective endocarditis.And he will eventually need transfer to a rehab facility before any surgical intervention to be considered WBC count today is 11.1 hemoglobin 7.5 INR is 1.8 sodium 127 potassium 4.9 BUN is 67 creatinine 6.68, patient remains on hemodialysis Thursday and Thursday. Patient was reevaluated today on 03/03/24, basically the patient is about the same, remains on BiPAP, he is on 07/09/30%, continues to have left-sided weakness related to his CVA. Does not seem to be in any distress, remains on antibiotics for his underlying endocarditis, arrangement for rehab is in progress, Patient was reevaluated today on 03/04/24, on 2 L nasal cannula, O2 saturation 97%, however the patient had recent episode of atrial fibrillation with RVR, cardiology was reconsulted, I found out today that cardiology has signed off his case, the meantime the patient is receiving antibiotics for his endocarditis, and the overall prognostic picture seems to be extremely poor and guarded. Apparently family is considering rehab somewhere near [facility] but that is in progress pulmonary graham the patient is intermittently on BiPAP, does not seem to be in distress when I saw him today. WBC count is normal at 9.3. Sodium is 129 potassium 4.3 BUN is 56 creatinine 6.04 patient has MSSA bacteremia, still receiving antibiotics as per infectious disease. And has been on nafcillin Patient was evaluated today on 03/05/2024, basically he is about the same hemodynamically stable, he is on nasal cannula at present at 2 L, does not seem to be in any distress, intermittently on BiPAP. Mentation graham, the patient seems to be slow, he did have acute multiple small multifocal areas of ischemic infarcts on the MRI. This was felt to be related to septic emboli from bacterial endocarditis. Patient remains on antibiotics/nafcillin, being addressed by infectious disease on the case. Eventually the patient may require surgical intervention however he is extremely high surgical risk, and this may have to be done at the [facility] according to the who prefers to do so. ABG today showed on 40% showed a pO2 of 129 pCO2 44 pH of 7.46 Patient was evaluated today on 03/06/2024, patient is doing fairly well, basically about the same, being treated for endocarditis, patient was accepted apparently at the [facility], and discharge planning is in progress. Pulmonary graham no active pulmonary issues, remains on nasal cannula at 2 L/min, and sometimes on BiPAP, no cough no wheezing no shortness of breath no fever no chills no hemoptysis.WBC count is 12.7 hemoglobin 7.3 basic metabolic profile is normal BUN is 37 creatinine 4.37 Progress note dated March 07, 2024. The patient is seen today in room 366. This is a 78-year-old male who is now been here for 21 days. The patient is currently on 2 L of oxygen. The BiPAP device is in the room, with settings of 10/5, and 28%. He was dependent on BiPAP over the weekend. He continues on nafcillin for oxacillin sensitive Staph aureus infection. The plan is apparently to try to get the patient to the [facility]. Current labs include a white count 10.1, hemoglobin 7.3 hematocrit 23, platelet count 220,000. Sodium 130, potassium 4.1, chloride 94, CO2 27, BUN 55, and creatinine 5.86. Glucose is 212. Calcium is 7.9. Objective - Vital Signs Vital signs: Vital Signs Temp 96.9 F L 03/07/24 08:00 Pulse 81 03/07/24 08:00 Resp 18 03/07/24 08:00 BP 156/69 03/07/24 08:00 Pulse Ox 98 03/07/24 08:00 FiO2 28 03/06/24 23:54 Intake & Output 03/06/24 03/07/24 03/07/24 18:59 06:59 18:59 Intake Total 240 496 Output Total 50 0 Balance 190 0 496 Weight 101.4 kg Intake: Oral 240 496 Output: Urine 50 Stool 0 Other: Voiding Method External Catheter External Catheter External Catheter # Bowel Movements 1 - Exam No acute distress, oriented 3. The patient is currently on 2 L nasal cannula. No respiratory distress, or use of accessory muscles. HEENT examination is grossly unremarkable. Mucous membranes are moist. No oral lesions. Neck supple. Full range of motion. No adenopathy thyromegaly or neck vein distention. Cardiovascular examination reveals regular rhythm rate. S1-S2 normal. No S3 or S4. No discernible murmur noted. Heart sounds distant. Heart rate 81 bpm. Lungs reveal mild bibasilar crackles. No wheezes or rhonchi. 2 L saturation is 98 percent. Breath sounds are equal bilaterally. Abdomen soft bowel sounds are heard. No masses or tenderness. Extremities are intact. No cyanosis clubbing or edema. Skin is without rash or lesion. Neurologic examination is brief but nonfocal. - Labs CBC & Chem 7: 03/07/24 07:49 03/07/24 07:49 Labs: Abnormal Lab Results - Last 24 Hours (Table) 03/06/24 03/06/24 03/07/24 Range/Units 16:29 20:11 07:49 RBC (4.30-5.90) m/uL Hgb (13.0-17.5) gm/dL Hct (39.0-53.0) % RDW (11.5-15.5) % Neutrophils # (1.3-7.7) k/uL Lymphocytes # (1.0-4.8) k/uL PT 16.9 H (10.0-12.5) sec INR 1.7 H (<1.2) Sodium (137-145) mmol/L Chloride (98-107) mmol/L BUN (9-20) mg/dL Creatinine (0.66-1.25) mg/dL POC Glucose (mg/dL) 200 H 246 H (70-110) mg/dL Calcium (8.4-10.2) mg/dL 06/03/24 06/03/24 06/03/24 Range/Units 07:49 07:49 11:25 RBC 2.31 L (4.30-5.90) m/uL Hgb 7.3 L (13.0-17.5) gm/dL Hct 23.0 L (39.0-53.0) % RDW 16.3 H (11.5-15.5) % Neutrophils # 8.4 H (1.3-7.7) k/uL Lymphocytes # 0.7 L (1.0-4.8) k/uL PT (10.0-12.5) sec INR (<1.2) Sodium 130 L (137-145) mmol/L Chloride 94 L (98-107) mmol/L BUN 55 H (9-20) mg/dL Creatinine 5.86 H (0.66-1.25) mg/dL POC Glucose (mg/dL) 212 H (70-110) mg/dL Calcium 7.9 L (8.4-10.2) mg/dL Microbiology - Last 24 Hours (Table) 03/06/24 06:02 Blood Culture - Preliminary Blood Assessment and Plan Assessment: Acute infective endocarditis, secondary to oxacillin sensitive Staphylococcus aureus infection, involving the anterior leaflet of the mitral valve. Acute hypoxemic respiratory failure, likely secondary to a combination of fluid overload and acute systolic CHF exacerbation. End-stage renal disease, receiving hemodialysis on a Thursday, Thursday, Thursday schedule. Atrial fibrillation with rapid ventricular response. Bacteremia and sepsis, secondary to methicillin sensitive Staphylococcus aureus. Hypotension and shock. Acute febrile illness. Altered mental status, possibly explained by acute metabolic encephalopathy and sepsis. Acute leukocytosis. Thrombocytopenia. Anemia of chronic disease, secondary to end-stage renal disease. Elevated troponins, suspect supply/demand mismatch. History of TAVR. History of hyperlipidemia. Obesity, with a BMI of 33.5 kg/m. Obstructive sleep apnea, with home BiPAP device. Former tobacco smoker. Plan: Plan dated February 18, 2024. I am happy to report that the patient is doing much better. He did use BiPAP last night with settings of 10/5, 30%. Currently he is getting saline at 10 cc an hour, and oxygen by nasal cannula at 2 L. We will continue to follow the patient, make recommendations along the way. The patient's overall prognosis remains guarded. Labs, x-rays, and medications are reviewed. Plan dated February 19, 2024. The patient is doing much better. He is currently on 2 L. He continues on Ancef, for the oxacillin sensitive Staphylococcus aureus in his bloodstream. Labs, x-rays, and medications are reviewed. He denies any respiratory issues such as shortness of breath, cough, wheezing, chest tightness, or phlegm production. We will continue to follow the patient, and make recommendations. Prognosis is certainly guarded. Plan dated February 20, 2024. The patient continues on Ancef. Labs, x-rays, and all medications are reviewed. The patient appears to be doing much better. The patient is currently on 2 L of oxygen. He denies any significant shortness of breath, cough, wheezing, chest tightness, or phlegm production. He also denies any fever or chills, chest pain, or any GI issues. We will continue to follow the patient, and make recommendations along the way. Labs, x-rays, and all medications have been reviewed. Plan dated February 21, 2024. The patient continues on Ancef. Labs, x-rays, medications are reviewed. The patient continues on oxygen at 2 L. His respiratory status has been stable. We will continue to follow the patient, make recommendations along the way. The patient's overall clinical condition is certainly improved. The patient will continue with his regular hemodialysis. Plan dated March 07, 2024. The patient was apparently accepted at [facility], and transfer plans are currently in progress. The patient continues on antibiotics in the form of nafcillin, for his oxacillin sensitive Staphylococcus aureus infection. The patient also continues on Thursday, Thursday, and Thursday hemodialysis. The patient continues on bronchodilators. Labs, x-rays, medications are reviewed. The patient is overall prognosis remains guarded. We will continue to follow the patient, and make recommendations along the way. He is currently on 2 L of oxygen. Time with Patient: Less than 30
[2024-03-07 16:31] LABS: Glucose,Whole Blood 239 mg/dL (70-110)
[2024-03-07 20:02] LABS: Glucose,Whole Blood 152 mg/dL (70-110)
[2024-03-07] MEDS ORDERED: hydrALAZINE HCL 20 MG/ML 1 ML VIAL IVP PRN (21:13)
[2024-03-07] MEDS: WARFARIN 2 MG TAB PO ONE (21:29)
[2024-03-07 22:07] VITALS: BP 174/76; PULSE 99; RESP 16; TEMP 99.7
[2024-03-07 22:07] LABS: ABG HCO3 29 mmol/L (21-25); ABG Oxygen Saturation 97.3 % (94-97); ABG PCO2 39 mmHg (35-45); ABG PH 7.49 (7.35-7.45); ABG PO2 82 mmHg (83-108); ABG TCO2 30 mmol/L (19-24); Allen Test Performed? Yes
--- NOTE | 2024-03-08 07:24 | P.DS ---
Providers Date of admission: 02/15/24 16:47 Expected date of discharge: 03/08/24 Attending physician: Kamille Hernandez MD Consults: 02/15/24 17:15 Consult Physician Routine Consulting Provider: Laura Serra Consult Reason/Comments: HD Do you want consulting provider notified?: Yes 02/16/24 12:31 Consult Physician Routine Consulting Provider: Rosey Butler Consult Reason/Comments: Sepsis Do you want consulting provider notified?: Yes 02/16/24 16:44 Consult Physician Routine Consulting Provider: Ricky Pantoja Consult Reason/Comments: CHF, respiratory failure Do you want consulting provider notified?: Yes 02/21/24 15:52 Consult Physician Routine Consulting Provider: Laurie Jarrell Consult Reason/Comments: Positive blood culture need for TREY to rule out endocarditis Do you want consulting provider notified?: Yes 02/26/24 10:21 Consult Physician Routine Consulting Provider: Tapan Jaimes Consult Reason/Comments: vegetation Do you want consulting provider notified?: Yes 03/03/24 13:21 Consult Physician Routine Consulting Provider: Dannie Torres Consult Reason/Comments: embolic strokes Do you want consulting provider notified?: Yes Primary care physician: [facility] Course: MSSA bacteremia with sepsis Infective endocarditis of the mitral valve -Nafcillin 2 g IV piggyback every 4 hours day #11 (prior to that patient had treatment with vancomycin and cefepime and cefazolin for total of an additional 10 days), PICC line in place and has been okayed with nephrology, Repeat blood cultures negative since 02/18 Acute toxic metabolic encephalopathy secondary to acute ischemia from septic emboli Acute exacerbation of systolic heart failure with an EF of 40-45%, susupect releated to worsening mitral valve dysfunction End-stage renal disease Malfunction of the AV graft Status post angioplasty and thrombolysis Atrial fibrillation with RVR, anticogulated with coumadin. Type II non-ST elevation NH, Likely due to sepsis History of TAVR Diabetes mellitus type 2 Melena with possible lower GI bleed, Resolved. Has been restarted on coumadin Thrombocytopenia likely due to sepsis, improved Hospital Course: Patient is a 78-year-old male with with known diabetes, atrial fibrillation anticoagulated with Coumadin, prior aortic valve replacement, dyslipidemia, end- stage renal disease on hemodialysis Thursday/Thursday/Thursday, and BPH who presented to the emergency department due to confusion and weakness. He was at [facility]inet dialysis they terminated treatment after 1 hour due to a fever. On arrival to the emergency department he was noted to be febrile to 104.1 with a heart rate of 140. Initial laboratory analysis was remarkable for white blood cell count 19.4, platelets 131, lactic acid 2.6, troponin 0.12, and renal function consistent with his known dialysis. Influenza A/B/RSV/COVID-19 testing was negative. Patient was admitted for sepsis of unknown etiology and A-fib with RVR. He was to started on vancomycin and cefepime as well as a Cardizem drip. Critical care and cardiology were consulted. Echocardiogram was performed which demonstrated ejection fraction of 40 to 45% with mild to moderate perivalvular leak of his aortic valve replacement. Vascular surgery was consulted as his dialysis access is not working. On 02/15 he underwent left upper extremity fistulogram with transluminal ballooning and thrombolysis at proximal aspect of graft. He then underwent hemodialysis and became slightly hypotensive requiring initiation of norepinephrine. He was subsequently transferred to the ICU. He was noted to have melanotic stools, his hemoglobin stabilized. He was evaluated by GI and had a recent outpatient colonoscopy without active bleeding and therefore no additional intervention was recommended. Blood cultures that were drawn on admission came back positive for MSSA. Infectious disease was conuslted and antibiotics were ultimately transitioned to nafcillin. His Blood c utlures cleared by 02/19/24. Transesophageal echocardiogram was performed on on 02/25/2024 and demonstrated a large vegetation attached to the anterior mitral leaflet that is freely flowing [id number] into the atria noted with mild to moderate mitral regurgitation. Tricuspid valve showed mild regurgitation. Bioprosthetic valve noted in the aortic position with mild aortic regurg. Intra-atrial septum without shunting. He developed left sided deficits. He underwent CT brain which was negative. MRI of the brain was performed which showed numerous peripheral and deep punctate diffusion hyperintensities correlating with septic emboli. He was seen by thoracic surgery who recommended continued IV antibiotics due to patient being high risk. Neurology was consulted. Patient did undergo EEG which demonstrated mild background slowing. Neurology did recommend resumption of his Coumadin which he is on for anticoagulation of his atrial fibrillation. Patient was continued on an IV antibiotics and did have improvement in his fever profile and his leukocytosis. On 03/05/2024 patient developed worsening dyspnea. Chest x-ray was repeated which now showed signs of fluid overload. Patient was requiring BiPAP and subsequently underwent emergent hemodialysis with removal of 2.5 L of fluid. He had a repeat CT brain which again showed no acute process. Prior to HD on 03/05/24 he underwent CTA of the chest which demonstrated congestive heart failure with no pulmonary embolism and no note of septic emboli. Overnight on 03/05/2024 patient again spiked fevers with a Tmax of 100.7. His white blood cell count increased to 12.7. Due to cardiothoracic surgery feeling that the patient would be better served at a tertiary care center should he require intervention on the valve [facility] was contacted as the patient had received a TAVR there in July [address]. [address]. Stanley excepted the patient. Family is in agreement with transfer. Patient transferred on 03/07/24. Patient Condition at Discharge: Serious Plan - Discharge Summary Discharge Rx Participant: Yes New Discharge Prescriptions: No Action Warfarin [Coumadin] 2.5 mg PO DIRECTED Winfield-3/Dha/Epa/Fish Oil [Fish Oil 1,000 mg Softgel] 1,000 mg PO DAILY Lovastatin [Mevacor] 10 mg PO HS diphenhydrAMINE HCL [Benadryl] 25 mg PO HS Insulin Glargine,Hum.rec.anlog [Lantus Solostar Pen] 45 units SQ HS Tamsulosin HCl [Flomax] 0.4 mg PO HS Multivitamins, Thera [Multivitamin (formulary)] 1 tab PO DAILY Alogliptin Benzoate [Alogliptin] 6.25 mg PO HS Discharge Medication List Alogliptin Benzoate [Alogliptin] 6.25 mg PO HS 11/20/23 [History] Insulin Glargine,Hum.rec.anlog [Lantus Solostar Pen] 45 units SQ HS 11/20/23 [History] Multivitamins, Thera [Multivitamin (formulary)] 1 tab PO DAILY 11/20/23 [History] Winfield-3/Dha/Epa/Fish Oil [Fish Oil 1,000 mg Softgel] 1,000 mg PO DAILY 11/20/23 [History] Tamsulosin HCl [Flomax] 0.4 mg PO HS 11/20/23 [History] Warfarin [Coumadin] 2.5 mg PO DIRECTED 11/20/23 [History] diphenhydrAMINE HCL [Benadryl] 25 mg PO HS 11/20/23 [History] Lovastatin [Mevacor] 10 mg PO HS 02/15/24 [History] Follow up Appointment(s)/Referral(s): [facility]Clinic [Primary Care Provider] - 1-2 days Discharge Disposition: OTHER INSTITUTION NOT DEFINED
--- NOTE | 2024-03-08 15:41 | CDI ---
Documentation Clarification Form Date: 03/08/2024 03:21:57 PM From: Enedina Pacheco Phone: Admit Date: 02/15/2024 04:47:00 PM Patient Name: Rosi Huntley Visit Number: [id number] Discharge Date: 03/07/2024 11:58:00 PM ATTENTION: The Clinical Documentation Specialists (CDI) and [facility] Coding Staff appreciate your assistance in clarifying documentation. Please respond to the clarification below the line at the bottom and electronically sign. The CDI & [facility] Coding staff will review the response and follow-up if needed. Please note: Queries are made part of the Legal Health Record. If you have any questions, please contact the author of this message via ITS. Dr. Valentine, Your patient has the documented symptom of: Right-sided weakness per Progress Note 03/01 and 03/02 Left-sided weakness per 02/25 Consult and Progress Notes Clarification regarding laterality of this symptom is requested. History/Risk Factors: 78yo M, MSSA bacteremiawitsepsis w shock, infective endocarditisof MV, acutetox/met enceph d/t acuteischemiafromseptic emboli, ACSHF w HTN, ESRD, DMII, Malfunctionof theAV graftspangioplastyandthrombolysis, A Fib/Flutter, NSTEMI II, Hx TAVR, melena, thrombocytopenia Clinical Indicators: 02/23/24CT scanof brain wo contrast which showed no acute intracranial process. 02/26/24 CT wo contrast tor/o septic emboliandstrokewhich demonstrated no acute intracranial process and nonspecific white matter changes, likely secondary to chronic small vessel ischemicdisease. History of CVA with right-sided weaknessrelated toseptic embolimostlikely. Progress Note 03/01 Treatment: Patient remains on antibiotics/nafcillin, via PICC, being addressed byID on the case. Eventually the patient may require surgical intervention however he is extremely high surgical risk. Pt was Trfx to [facility]. Please provide clarification regarding laterality of weakness? [ ] Hemiplegia, Left [ ] Hemiplegia Right [ x ] Other, please specify (Template Last Reviewed: November 2020) Patient has multiple, small, bilateral ischemic infarction noted on the MRI. Patient has bilateral weakness, left more than right as per my notes from 03/03/2024 and 03/05/2024. 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 Please let. If any other concerns. Dannie Torres MD [facility]
--- NOTE | 2024-03-14 07:49 | P.PN ---
Subjective Progress Note Date: 03/07/24 Principal diagnosis: Reason for follow-up with MSSA bacteremia Patient is a 78-year-old male with a past medical his significant for diabetes mellitus hypertension hyperlipidemia atrial fibrillation history of end-stage renal disease on dialysis through left arm AV graft patient has been brought into the hospital for fever weakness and did have bacteremia.Patient did have a TREY completed on 02/26/2024 with evidence of a large vegetation on the anterior mitral leaflet there was no mention of any vegetation on the bioprosthetic aortic valve. On today's evaluation that is 03/07/2024 patient did have improvement in his fever pattern and did have a temperature of 96.9 this morning patient is breathing comfortably currently on 2 L nasal oxygen denies any chest pain or cough no vomiting or diarrhea has been reported by the nursing staff. Patient white count normalized to 10.1 creatinine is 5.86 blood culture repeated 03/06/2024 so far negative Objective - Vital Signs Vital signs: Vital Signs Temp 96.9 F L 03/07/24 08:00 Pulse 81 03/07/24 08:00 Resp 18 03/07/24 08:00 BP 156/69 03/07/24 08:00 Pulse Ox 98 03/07/24 08:00 FiO2 28 03/06/24 23:54 Intake & Output 03/06/24 03/07/24 03/07/24 18:59 06:59 18:59 Intake Total 240 732 Output Total 50 0 Balance 190 0 732 Weight 101.4 kg Intake: Oral 240 732 Output: Urine 50 Stool 0 Other: Voiding Method External Catheter External Catheter External Catheter # Bowel Movements 1 - Exam GENERAL DESCRIPTION: An elderly male lying in bed in no distress RESPIRATORY SYSTEM: Unlabored breathing , decreased breath sounds at bases HEART: S1 S2 regular rate and rhythm , ABDOMEN: Soft , no tenderness - Labs CBC & Chem 7: 03/07/24 07:49 03/07/24 07:49 Labs: Abnormal Lab Results - Last 24 Hours (Table) 03/06/24 03/06/24 03/07/24 Range/Units 16:29 20:11 07:49 RBC (4.30-5.90) m/uL Hgb (13.0-17.5) gm/dL Hct (39.0-53.0) % RDW (11.5-15.5) % Neutrophils # (1.3-7.7) k/uL Lymphocytes # (1.0-4.8) k/uL PT 16.9 H (10.0-12.5) sec INR 1.7 H (<1.2) Sodium (137-145) mmol/L Chloride (98-107) mmol/L BUN (9-20) mg/dL Creatinine (0.66-1.25) mg/dL POC Glucose (mg/dL) 200 H 246 H (70-110) mg/dL Calcium (8.4-10.2) mg/dL 03/07/24 03/07/24 03/07/24 Range/Units 07:49 07:49 11:25 RBC 2.31 L (4.30-5.90) m/uL Hgb 7.3 L (13.0-17.5) gm/dL Hct 23.0 L (39.0-53.0) % RDW 16.3 H (11.5-15.5) % Neutrophils # 8.4 H (1.3-7.7) k/uL Lymphocytes # 0.7 L (1.0-4.8) k/uL PT (10.0-12.5) sec INR (<1.2) Sodium 130 L (137-145) mmol/L Chloride 94 L (98-107) mmol/L BUN 55 H (9-20) mg/dL Creatinine 5.86 H (0.66-1.25) mg/dL POC Glucose (mg/dL) 212 H (70-110) mg/dL Calcium 7.9 L (8.4-10.2) mg/dL Microbiology - Last 24 Hours (Table) 03/06/24 06:02 Blood Culture - Preliminary Blood Assessment and Plan (1) Leukocytosis Status: Acute Code(s): D72.829 - ELEVATED WHITE BLOOD CELL COUNT, UNSPECIFIED SNOMED Code(s): 607673053 (2) MSSA bacteremia Status: Acute Code(s): R78.81 - BACTEREMIA; B95.61 - METHICILLIN SUSCEP STAPH INFCT CAUSING DIS CLASSD ELSWHR SNOMED Code(s): 560331453 Plan: 1patient with MSSA bacteremia in this patient who do have a history of renal failure with on hemodialysis with a left arm fistula site with presentation to the hospital with weakness fall and urinary frequency however UA is negative abdominal soft no significant respiratory symptoms or hypoxemia question of possible related to the fistula site which was nonfunctioning and did have angiogram and angioplasty done this admission. 2blood cultures repeated 02/17/2024 came back positive blood culture has been repeated 02/19/2024 as well as 02/20/2024 are so far negative keeping in mind his TAVR procedure, cardiology has been consulted for TREY which was completed 02/26/2024 with evidence of large vegetation on the anterior mitral valve leaflet did not mention any vegetation on the bioprosthetic aortic valve 3-CT surgery has been consulted because of the large vegetation patient has been evaluated by CT surgery recommending no surgical intervention at this point, patient family has got an opinion from [facility] per discussion with the daughter they are recommended to continue with the medical treatment ho wever patient did have a low-grade fever and also slightly elevated white count blood culture has been repeated and talks has been going on with [facility] for possible transfer and evaluation by CT surgery there currently waiting for transfer, patient white count has normalized as of this morning blood culture obtained yesterday so far pending I will continue patient on Naficillin and continue supportive care Family at the bedside questions were answered Dictation was produced using [employer] dictation software. please excuse any grammatical, word or spelling errors. Time with Patient: Less than 30
--- NOTE | 2024-03-14 07:49 | P.PN ---
Subjective Progress Note Date: 03/06/24 Principal diagnosis: Reason for follow-up with MSSA bacteremia Patient is a 78-year-old male with a past medical his significant for diabetes mellitus hypertension hyperlipidemia atrial fibrillation history of end-stage renal disease on dialysis through left arm AV graft patient has been brought into the hospital for fever weakness and did have bacteremia.Patient did have a TREY completed on 02/26/2024 with evidence of a large vegetation on the anterior mitral leaflet there was no mention of any vegetation on the bioprosthetic aortic valve. On today's evaluation that is 03/06/2024, patient had did have a low-grade fever 100.7 F after midnight the patient is afebrile since then, patient is breathing comfortably on 2 L cannula oxygen patient denies having any headache no chest pain no cough no nausea vomiting no abdominal pain or diarrhea Patient white count slightly up at 12.7 creatinine is 4.37 Objective - Vital Signs Vital signs: Vital Signs Temp 98.5 F 03/06/24 12:00 Pulse 71 03/06/24 13:56 Resp 20 03/06/24 13:56 BP 138/81 03/06/24 12:00 Pulse Ox 99 03/06/24 12:00 FiO2 28 03/06/24 12:00 Intake & Output 03/05/24 03/06/24 03/06/24 18:59 06:59 18:59 Intake Total 400 240 Output Total 2900 Balance -2500 240 Weight 98.1 kg Intake: Oral 0 240 Hemodialysis 400 Output: Urine 0 Hemodialysis 2900 Other: Voiding Method External Catheter External Catheter External Catheter - Exam GENERAL DESCRIPTION: An elderly male lying in bed in no distress RESPIRATORY SYSTEM: Unlabored breathing , decreased breath sounds at bases HEART: S1 S2 regular rate and rhythm , ABDOMEN: Soft , no tenderness - Labs CBC & Chem 7: 03/07/24 07:49 03/07/24 07:49 Labs: Abnormal Lab Results - Last 24 Hours (Table) 03/05/24 03/05/24 03/05/24 Range/Units 16:26 20:39 23:55 WBC (3.8-10.6) k/uL RBC (4.30-5.90) m/uL Hgb (13.0-17.5) gm/dL Hct (39.0-53.0) % RDW (11.5-15.5) % PT (10.0-12.5) sec INR (<1.2) Sodium (137-145) mmol/L Chloride (98-107) mmol/L BUN (9-20) mg/dL Creatinine (0.66-1.25) mg/dL Glucose (74-99) mg/dL POC Glucose (mg/dL) 229 H 212 H 111 H (70-110) mg/dL Calcium (8.4-10.2) mg/dL Total Bilirubin (0.2-1.3) mg/dL Total Protein (6.3-8.2) g/dL Albumin (3.5-5.0) g/dL HDL Cholesterol (40.00-60.00) mg/dL 03/06/24 03/06/24 03/06/24 Range/Units 06:02 06:02 06:29 WBC (3.8-10.6) k/uL RBC (4.30-5.90) m/uL Hgb (13.0-17.5) gm/dL Hct (39.0-53.0) % RDW (11.5-15.5) % PT 17.0 H (10.0-12.5) sec INR 1.7 H (<1.2) Sodium (137-145) mmol/L Chloride (98-107) mmol/L BUN (9-20) mg/dL Creatinine (0.66-1.25) mg/dL Glucose (74-99) mg/dL POC Glucose (mg/dL) 158 H (70-110) mg/dL Calcium (8.4-10.2) mg/dL Total Bilirubin (0.2-1.3) mg/dL Total Protein (6.3-8.2) g/dL Albumin (3.5-5.0) g/dL HDL Cholesterol 39.60 L (40.00-60.00) mg/dL 03/06/24 03/06/24 03/06/24 Range/Units 07:06 07:54 07:54 WBC 12.7 H (3.8-10.6) k/uL RBC 2.37 L (4.30-5.90) m/uL Hgb 7.3 L (13.0-17.5) gm/dL Hct 23.4 L (39.0-53.0) % RDW 15.9 H (11.5-15.5) % PT (10.0-12.5) sec INR (<1.2) Sodium 132 L (137-145) mmol/L Chloride 96 L (98-107) mmol/L BUN 37 H (9-20) mg/dL Creatinine 4.37 H (0.66-1.25) mg/dL Glucose 155 H (74-99) mg/dL POC Glucose (mg/dL) 150 H (70-110) mg/dL Calcium 7.8 L (8.4-10.2) mg/dL Total Bilirubin 1.7 H (0.2-1.3) mg/dL Total Protein 5.9 L (6.3-8.2) g/dL Albumin 2.9 L (3.5-5.0) g/dL HDL Cholesterol (40.00-60.00) mg/dL 03/06/24 Range/Units 12:11 WBC (3.8-10.6) k/uL RBC (4.30-5.90) m/uL Hgb (13.0-17.5) gm/dL Hct (39.0-53.0) % RDW (11.5-15.5) % PT (10.0-12.5) sec INR (<1.2) Sodium (137-145) mmol/L Chloride (98-107) mmol/L BUN (9-20) mg/dL Creatinine (0.66-1.25) mg/dL Glucose (74-99) mg/dL POC Glucose (mg/dL) 259 H (70-110) mg/dL Calcium (8.4-10.2) mg/dL Total Bilirubin (0.2-1.3) mg/dL Total Protein (6.3-8.2) g/dL Albumin (3.5-5.0) g/dL HDL Cholesterol (40.00-60.00) mg/dL Assessment and Plan (1) Leukocytosis Status: Acute Code(s): D72.829 - ELEVATED WHITE BLOOD CELL COUNT, UNSPECIFIED SNOMED Code(s): 408928129 (2) MSSA bacteremia Status: Acute Code(s): R78.81 - BACTEREMIA; B95.61 - METHICILLIN SUSCEP STAPH INFCT CAUSING DIS CLASSD HENRYWHR SNOMED Code(s): 657272004 Plan: 1patient with MSSA bacteremia in this patient who do have a history of renal failure with on hemodialysis with a left arm fistula site with presentation to the hospital with weakness fall and urinary frequency however UA is negative abdominal soft no significant respiratory symptoms or hypoxemia question of possible related to the fistula site which was nonfunctioning and did have angiogram and angioplasty done this admission. 2blood cultures repeated 02/17/2024 came back positive blood culture has been repeated 02/19/2024 as well as 02/20/2024 are so far negative keeping in mind his TAVR procedure, cardiology has been consulted for TREY which was completed 02/26/2024 with evidence of large vegetation on the anterior mitral valve leaflet did not mention any vegetation on the bioprosthetic aortic valve 3-CT surgery has been consulted because of the large vegetation patient has been evaluated by CT surgery recommending no surgical intervention at this point, patient family has got an opinion from [facility] per discussion with the daughter they are recommended to continue with the medical treatment however patient did have a low-grade fever and also slightly elevated white c ount blood culture has been repeated and talks has been going on with [facility] for possible transfer and evaluation by CT surgery there currently waiting for transfer, for now we will continue the patient on Naficillin and monitor clinical course closely. Family at the bedside questions were answered Dictation was produced using [employer] dictation software. please excuse any grammatical, word or spelling errors. Time with Patient: Less than 30
== END 2024-03-07 23:58 | disposition short-term general hospital (02) | DRG 853 ==
LOC: EC 13:44 → 3SCARD 16:47 → 1SOBS 02-16 10:04 → 3SCARD 02-16 10:04 → 1SOBS 02-16 11:04 → 2SICU 02-16 16:44 → 3SCARD 02-17 23:50
PROVIDERS: ADMIT Internal Medicine; ATTEND Internal Medicine
PROC: B5171ZZ Fluoroscopy of Left Subclavian Vein using Low Osmolar Contrast (ICD-10-PCS; 2024-02-16)
PROC: 3E03317 Introduction of Other Thrombolytic into Peripheral Vein, Percutaneous Approach (ICD-10-PCS; 2024-02-16)
PROC: 3E033XZ Introduction of Vasopressor into Peripheral Vein, Percutaneous Approach (ICD-10-PCS; 2024-02-16)
PROC: 05763ZZ Dilation of Left Subclavian Vein, Percutaneous Approach (ICD-10-PCS; principal; 2024-02-16 18:05)
PROC: 5A09357 Assistance with Respiratory Ventilation, Less than 24 Consecutive Hours, Continuous Positive Airway Pressure (ICD-10-PCS; 2024-02-23)
PROC: 5A1D70Z Performance of Urinary Filtration, Intermittent, Less than 6 Hours Per Day (ICD-10-PCS; 2024-02-23)
PROC: B24BZZ4 Ultrasonography of Heart with Aorta, Transesophageal (ICD-10-PCS; 2024-02-26)
PROC: 02HV33Z Insertion of Infusion Device into Superior Vena Cava, Percutaneous Approach (ICD-10-PCS; 2024-03-03)
DX: A41.01 Sepsis due to Methicillin susceptible Staphylococcus aureus (principal); G92.8 Other toxic encephalopathy; J96.01 Acute respiratory failure with hypoxia; R65.21 Severe sepsis with septic shock; I63.40 Cerebral infarction due to embolism of unspecified cerebral artery; I33.0 Acute and subacute infective endocarditis; I50.23 Acute on chronic systolic (congestive) heart failure; I21.A1 Myocardial infarction type 2; N18.6 End stage renal disease; I76 Septic arterial embolism; I13.2 Hypertensive heart and chronic kidney disease with heart failure and with stage 5 chronic kidney disease, or end stage renal disease; T82.511A Breakdown (mechanical) of surgically created arteriovenous shunt, initial encounter; T82.868A Thrombosis due to vascular prosthetic devices, implants and grafts, initial encounter; T82.510A Breakdown (mechanical) of surgically created arteriovenous fistula, initial encounter; I48.92 Unspecified atrial flutter; I48.19 Other persistent atrial fibrillation; G81.91 Hemiplegia, unspecified affecting right dominant side; G81.94 Hemiplegia, unspecified affecting left nondominant side; G72.81 Critical illness myopathy; I87.1 Compression of vein; E87.1 Hypo-osmolality and hyponatremia; D62 Acute posthemorrhagic anemia; K92.1 Melena; E11.22 Type 2 diabetes mellitus with diabetic chronic kidney disease; E11.42 Type 2 diabetes mellitus with diabetic polyneuropathy; Z79.4 Long term (current) use of insulin; Z99.2 Dependence on renal dialysis; J44.9 Chronic obstructive pulmonary disease, unspecified; E11.65 Type 2 diabetes mellitus with hyperglycemia; Z91.158 Patient's noncompliance with renal dialysis for other reason; D63.1 Anemia in chronic kidney disease; E83.39 Other disorders of phosphorus metabolism; D69.59 Other secondary thrombocytopenia; I08.3 Combined rheumatic disorders of mitral, aortic and tricuspid valves; Z95.3 Presence of xenogenic heart valve; Z68.33 Body mass index [BMI] 33.0-33.9, adult; E66.9 Obesity, unspecified; R79.1 Abnormal coagulation profile; T45.515A Adverse effect of anticoagulants, initial encounter; R19.7 Diarrhea, unspecified; R30.0 Dysuria; R48.2 Apraxia; N40.0 Benign prostatic hyperplasia without lower urinary tract symptoms; G47.33 Obstructive sleep apnea (adult) (pediatric); E78.5 Hyperlipidemia, unspecified; I44.7 Left bundle-branch block, unspecified; I25.10 Atherosclerotic heart disease of native coronary artery without angina pectoris; R35.0 Frequency of micturition; W06.XXXA Fall from bed, initial encounter; W01.0XXA Fall on same level from slipping, tripping and stumbling without subsequent striking against object, initial encounter; Y71.2 Prosthetic and other implants, materials and accessory cardiovascular devices associated with adverse incidents; Y92.009 Unspecified place in unspecified non-institutional (private) residence as the place of occurrence of the external cause; Z77.090 Contact with and (suspected) exposure to asbestos; Z11.52 Encounter for screening for COVID-19; Z79.01 Long term (current) use of anticoagulants; Z79.899 Other long term (current) drug therapy; Z87.891 Personal history of nicotine dependence
CPT/HCPCS: 36415; 36573; 36600; 36905; 70450; 70551; 71045; 71275; 80048; 80053; 80061; 81001; 82272; 82607; 82728; 82805; 83036; 83540; 83550; 83605; 83735; 84100; 84443; 84484; 85025; 85027; 85610; 85730; 86140; 87040; 87077; 87186; 87324; 87636; 90935; 93005; 93306; 93312; 93320; 93325; 94660; 94760; 95816; 96365; 96366; 96367; 96368; 99291